=== PATIENT | male | born 1950 | race Caucasian/White ===

== ENCOUNTER 2021-12-01 10:01 | Emergency (ER) | payer MEDICARE, SELFPAY ==
[2021-12-01 10:09] VITALS: BP 143/95; PULSE 97; RESP 18; TEMP 36.6; O2SAT 97; BMI 26.5
--- NOTE | 2021-12-01 10:51 | ED.GENADULT ---
HPI - General Adult General Time Seen by Provider: 10:51 Date Seen: 12/01/21 Chief complaint: Urogenital Problems, Male Stated complaint: Urinary tract infection Time Seen by Provider: 12/01/21 10:46 Source: patient and RN notes reviewed Mode of arrival: ambulatory Limitations: no limitations History of Present Illness HPI narrative: Patient is coming in with complaint of UTI. He has chronic indwelling catheter in states he gets recurrent UTIs. He reports he had called his urologist whom he sees in [place] a few days back and requested some more Cipro. The urologist wanted him to come in and provide a sample which he did do so. He received a call today that he needed to come in and get an injectable antibiotic. Does not have his results. Patient is not feeling any fevers. No nausea or vomiting. When I questioned him as to how he knows he has an infection he states he gets a burning sensation. Reviewed with patient that we are needing this culture result to be able to proceed with giving him antibiotics. I have no idea what to use without seeing the culture result. Related Data Previous Rx's Medication Instructions Recorded linezolid 600 mg tablet 600 mg PO BID #13 tabs 12/01/21 linezolid 600 mg tablet 600 mg PO BID #13 tabs 12/01/21 Allergies Allergy/AdvReac Type Severity Reaction Status Date / Time No Known Drug Allergies Allergy Verified 12/01/21 10:16 Review of Systems Status of ROS: Reports: 6 or more systems reviewed and unremarkable except as noted in History and below PFSH PFSH Social History Smoking Status: Unknown if ever smoked Exam Const: Vital Signs, click to edit/add: Vital Signs - 24 hr 12/01/21 10:09 Temperature 97.9 F Pulse Rate [Right Pulse Oximeter] 97 Respiratory Rate 18 Blood Pressure [Ri ght Upper Arm] 143/95 H Pulse Oximetry 97 Oxygen Delivery Me thod Room Air Documenting provider has reviewed patient's vital signs: yes Common normals: no apparent distress, average body habitus, oriented x3, no limitations, healthy appearing, alert and well nourished General appearance: cooperative and comfortable HENMT: Common normals: normocephalic, head/scalp atraumatic and hearing grossly normal bilaterally Head and scalp: normocephalic and atraumatic Eye: Common normals: PERRL, EOMs intact bilaterally, conjunctivae normal and no scleral icterus Conjunctiva: conjunctiva(e) normal Pupil: PERRL Resp: Common normals: normal respiratory effort, no retractions, no use of accessory muscles and clear to auscultation bilaterally Auscultation: clear to auscultation bilaterally Cardio: Common normals: regular rate, regular rhythm, S1 normal heart sound, S2 normal heart sound, no gallops, no clicks and no murmurs Rate: regular rate Rhythm: regular rhythm Heart sounds: S1 normal and S2 normal GI: Common normals: Normal to inspection, nondistended, normoactive bowel sounds present, soft to palpation, non-tender, no hepatosplenomegaly and no masses Palpation: soft and no hepatosplenomegaly Neuro: Common normals: oriented x3 Sensorium/orientation: alert Course Course Hospital Course: Reviewed with patient that we need the urine results from his urologist. He sees someone in [place] at [facility]. We have contacted that clinic to get the results. Reevaluation(s) Reevaluation #1: Have been working with pharmacy regarding this patient's sensitivities. He has a multi-drug resistant Staphylococcus hominis. Greater than 100k colony-forming units. It is only sensitive to daptomycin, gentamicin and linezolid. His creatinine was normal upon review of his chart on 08/01/2021 at . His pharmacy will not cover the oral linezolid. We are currently working on scene if we could do a prior authorization otherwise he will have to do outpatient gentamicin. Time: 13:01 Vital Signs Vital signs: Initial Vital Signs Temperature 97.9 F 12/01/21 10:09 Temperature Source Temporal Artery Scan 12/01/21 10:09 Pulse Rate 97 12/01/21 10:09 Respiratory Rate 18 12/01/21 10:09 Blood Pressure 143/95 H 12/01/21 10:09 Blood Pressure Mean 111 12/01/21 10:09 Blood Pressure Position Sitting 12/01/21 10:09 Pulse Oximetry 97 12/01/21 10:09 Oxygen Delivery Method 12/01/21 10:09 Vital Signs Temperature 97.9 F 12/01/21 10:09 Pulse Rate 97 12/01/21 10:09 Respiratory Rate 18 12/01/21 10:09 Blood Pressure 143/95 H 12/01/21 10:09 Pulse Oximetry 97 12/01/21 10:09 Oxygen Delivery Method 12/01/21 10:09 Temperature 97.9 F 12/01/21 10:09 Pulse Rate 97 12/01/21 10:09 Respiratory Rate 18 12/01/21 10:09 Blood Pressure 143/95 H 12/01/21 10:09 Pulse Oximetry 97 12/01/21 10:09 Oxygen Delivery Method 12/01/21 10:09 Critical Care Time Critical Care Time Critical Care Time: No Discharge Plan Discharge Clinical Impression: Urinary tract infection Patient Disposition: Home, Self-Care Condition: Stable Instructions: Urinary Tract Infection in Men (ED) Additional Instructions: Take antibiotics as prescribed, next dose due tomorrow morning. Follow up with urologist as needed. Do recommend consideration of referral to Infectious disease specialist to review your highly resistant urinary organisms and plans for further treament. Activity Level: Activity as Tolerated Prescriptions: New linezolid 600 mg tablet 600 mg PO BID Qty: 13 0RF linezolid 600 mg tablet 600 mg PO BID Qty: 13 0RF Follow Up/Referrals: George Mistry MD [Referring] - Stand Alone Forms: [employer] Info Instructions
--- OUTSIDE RECORDS SUMMARY | 2021-12-01 11:19 | XMS_ITS | Encounter Summary ---
:1950 Author Organization [facility] [place] [address] Care Team Providers Name Role Phone No Ref-Primary, Physician Primary Care Provider [phone] Lino Radford DO Unavailable Wilian Castañeda MD Unavailable Reason for Referral (Routine) - Closed Specialty Diagnoses / Procedures Referred By Contact Refer red To Contact Diagnoses Chronic atrial fibrillation (H) Wilian Castañeda MD Procedures Cardioversion [address] [place] [id number] Referral ID Status Reason Start Date Expiration Date Visits Requ ested Visits Authorized [id number] Closed 10/27/2020 10/27/2021 1 1 Reason for Visit Reason Comments FU Cardiac testing echo, ZPatch (Routine) - Closed Specialty Diagnoses / Procedures Referred By Contact Refer red To Contact Diagnoses Chronic atrial fibrillation (H) Wilian Castañeda MD [address] [place] [id number] Referral ID Status Reason Start Date Expiration Date Visits Requ ested Visits Authorized [id number] Closed 09/01/2020 09/01/2021 1 1 Encounter Details Date Type Department Care Team Description 10/27/2020 Office Visit [facility] Wilian Castañeda [facility] Lizzy Mcintosh MD fibrillation (H) [address] [place] [id number] [place] [address] [phone] Social History Tobacco Use Types Packs/Day Years Used Date Former Smoker Cigarettes 2 20 04/02/1971 - 0 04/02/1991 Smokeless Tobacco: Never Used Alcohol Use Standard Drinks/Week Comments Yes 0 (1 standard drink = 0.6 oz pure alcoho l) occ Alcohol Habits Answer Date Recorded How often do you have a drink containing alcohol? Not asked How many drinks containing alcohol do you have on a typical Not asked day when you are drinking? How often do you have six or more drinks on one occasion? No t asked Comment: occ 07/19/2020 Sex Assigned at Date Recorded Male 08/29/2020 12:26 PM CDT COVID-19 Exposure Response Date Recorded In the last month, have you been in contact with No / Unsure 10/27/2020 12:25 PM CDT someone who was confirmed or suspected to have Coronavirus / COVID-19? documented as of this encounter Last Filed Vital Signs Vital Sign Reading Time Taken Comments Blood Pressure 150/96 10/27/2020 12:41 PM recheck CDT Pulse 94 10/27/2020 12:41 PM CDT Temperature - - Respiratory Rate - - Oxygen Saturation - - Inhaled Oxygen Concentration - - Weight 111.7 kg (246 lb 4.8 oz) 10/27/2020 12:38 PM CDT Height 180.3 cm (5' 10.98) 10/27/2020 12:38 PM CDT Body Mass Index 34.37 10/27/2020 12:38 PM CDT documented in this encounter Patient Instructions Patient InstructionsWilian Castañeda MD - 10/27/2020 12:45 PM CDT - Stop Metoprolol and Asprin. - Start Coreg and Eliquis. - Electrical cardioversion. documented in this encounter Progress Notes Wilian Castañeda MD - 10/27/2020 12:45 PM CDT Electrophysiology/ Clinic Note H&P and Plan: REASON FOR VISIT: Electrophysiology evaluation. HISTORY OF PRESENT ILLNESS: Patient is a pleasant 70-year-old gentleman with a history hyperlipidemia and persistent atrial fibrillation, who is here for evaluation. ?? Patient recently moved from [place] to [place]. He was told in the past that he had A. fib, however he denies actually having any physical back in [place]. Here [place], he establish care with PCP and was found to have atrial fibrillation. He was referred here for evaluation. Met with him last month. At that time, he was complaining of fatigue but appears that the symptoms were chronic for him. I recommend a monitor and an echocardiogram, and started him on beta-blockers. He did not tolerate metoprolol well-decrease the dose in half due to fatigue. He continues to do well and denies any other major symptoms such as chest pain, palpitations or shortness of breath. Echocardiogram showed mild LV dysfunction and blood pressure is mildly evaded today. Baseline EKG shows atrial fibrillation with RVR and underlying intraventricular conduction delay/left anterior fascicular block. ?? Previous studies: -ZIO Patch monitor (): Persistent A. fib with average heart rate of 186 bpm. There are a few moments of RVR. -Echocardiogram (09/29/2020): Mild LV dysfunction. EF estimated 45-50%. ?? ASSESSMENT AND PLAN: 1. ??Persistent atrial fibrillation. ?? Echo showed mild to moderate left atrial dilation, which is suggestive of A. fib may be subacute rather than chronic. He seems to be minimally symptomatic with A. fib, however echo shows signs of LV dysfunction. Therefore, I favor at least an attempt of buddhist of normal rhythm. As he is intolerant to metoprolol, will try to switch to a different beta-mulugeta. I recommend the following: -Stop metoprolol and aspirin. -Start Eliquis and Coreg. -Cardioversion a month. -Follow-up in clinic with an JORDY after cardioversion. 2. ??Embolic prevention. ??CHADS-VASc score of 2-3 (age, CHF and hypertension- new diagnosis). Plan as detailed above. Wilian Castañeda MD Physical Exam: Vitals: BP (!) 150/96 (BP Location: Left arm) Pulse 94 Ht 1.803 m (5' 10.98) Wt 111.7 kg (246lb 4.8 oz) BMI 34.37 kg/m?? Constitutional: AAO x3. Pt is in NAD. HEAD: normocephalic. SKIN: Skin normal color, texture and turgor with no lesions or eruptions. Eyes: PERRL, EOMI. ENT: Supple, normal JVP. No lymphadenopathy or thyroid enlargement. Chest: CTAB. Cardiac: RRR, normal S1 and S2. No murmurs rubs or gallop. Abdomen: Normal BS. Soft, non-tender and non-distended. No rebound or guarding. Extremities: Pedious pulses palpable B/L. No LE edema noticed. Neurological: Strength and sensation grossly symmetric and intact throughout. CURRENT MEDICATIONS: Current Outpatient Medications Medication Sig Dispense Refill ??? acetaminophen (TYLENOL) 500 MG tablet Take 500-1,000 mg by mouth every 6 hours as needed for mild pain ??? aspirin (ASA) 81 MG EC tablet Take 1 tablet (81 mg) by mouth daily 30 tablet 3 ??? metoprolol succinate ER (TOPROL-XL) 25 MG 24 hr tablet Take 1 tablet (25 mg) by mouth daily (Patient taking differently: Take 12.5 mg by mouth daily ) 30 tablet 3 ??? ondansetron (ZOFRAN) 4 MG tablet Take 1 tablet (4 mg) by mouth every 8 hours as needed for nausea (Patient not taking: Reported on 09/01/2020) 20 tablet 3 ALLERGIES No Known Allergies PAST MEDICAL HISTORY: Past Medical History: Diagnosis Date ??? Urinary tract infection PAST SURGICAL HISTORY: Past Surgical History: Procedure Laterality Date ??? COLONOSCOPY FAMILY HISTORY: Family History Problem Relation Age of Onset ??? No Known Problems Mother ??? No Known Problems Father ??? Colon Cancer No family hx of SOCIAL HISTORY: Social History Socioeconomic History ??? Marital status: Spouse name: None ??? Number of children: None ??? Years of education: None ??? Highest education level: None Occupational History ??? None Tobacco Use ??? Smoking status: Former Smoker Packs/day: 2.00 Years: 20.00 Pack years: 40.00 Types: Cigarettes Start date: 04/02/1971 Quit date: 04/02/1991 Years since quittin.5 ??? Smokeless tobacco: Never Used Substance and Sexual Activity ??? Alcohol use: Yes Comment: occ ??? Drug use: Yes Types: Marijuana ??? Sexual activity: None Other Topics Concern ??? Parent/sibling w/ CABG, OK or angioplasty before 65F 55M? Not Asked Social History Narrative ??? None Social Determinants of Health Financial Resource Strain: ??? Difficulty of Paying Living Expenses: Food Insecurity: ??? Worried About Running Out of Food in the Last Year: ??? Ran Out of Food in the Last Year: Transportation Needs: ??? Lack of Transportation (Medical): ??? Lack of Transportation (Non-Medical): Physical Activity: ??? Days of Exercise per Week: ??? Minutes of Exercise per Session: Stress: ??? Feeling of Stress : Social Connections: ??? Frequency of Communication with Friends and Family: ??? Frequency of Social Gatherings with Friends and Family: ??? Attends Qu[employer] Services: ??? Active Member of Clubs or Organizations: ??? Attends Club or Organization Meetings: ??? Marital Status: Intimate Partner Violence: ??? Fear of Current or Ex-Partner: ??? Emotionally Abused: ??? Physically Abused: ??? Sexually Abused: Review of Systems: Skin: Negative Eyes: Positive for glasses ENT: Negative Respiratory: Positive for dyspnea on exertion Cardiovascular: Negative Gastroenterology: Negative Genitourinary: Positive for prostate problem Musculoskeletal: Negative Neurologic: Negative Psychiatric: Positive for anxiety Heme/Lymph/Imm: Negative Endocrine: Negative Recent Lab Results: LIPID RESULTS: No results found for: CHOL, HDL, LDL, TRIG, CHOLHDLRATIO LIVER ENZYME RESULTS: Lab Results Component Value Date AST 11 08/09/2020 ALT 22 08/09/2020 CBC RESULTS: Lab Results Component Value Date WBC 10.7 08/09/2020 RBC 5.53 08/09/2020 HGB 16.8 08/09/2020 HCT 50.8 08/09/2020 MCV 92 08/09/2020 MCH 30.4 08/09/2020 MCHC 33.1 08/09/2020 RDW 14.4 08/09/2020 PLT 196 08/09/2020 BMP RESULTS: Lab Results Component Value Date NA 139 08/09/2020 POTASSIUM 4.2 08/09/2020 CHLORIDE 108 08/09/2020 CO2 22 08/09/2020 ANIONGAP 9 08/09/2020 GLC 125 (H) 08/09/2020 BUN 24 08/09/2020 CR 0.87 08/09/2020 GFRESTIMATED 87 08/09/2020 GFRESTBLACK >90 08/09/2020 ISIAH 9.5 08/09/2020 A1C RESULTS: No results found for: A1C INR RESULTS: Lab Results Component Value Date INR 1.10 07/15/2020 ECHOCARDIOGRAM No results found for this or any previous visit (from the past 8760 hour(s)). No orders of the defined types were placed in this encounter. No orders of the defined types were placed in this encounter. There are no discontinued medications. Encounter Diagnosis Name Primary? Chronic atrial fibrillation (H) CC Wilian Castañeda MD [address] [place] [id number] documented in this encounter Plan of Treatment Scheduled Orders Name Type Priority Associated Diagnoses Order S chedule Cardioversion Electrophysiology Routine Chronic atrial Expecte d: 11/27/2020 fibrillation (H) (Approximat e), Expires: 2021 documented as of this encounter Visit Diagnoses Diagnosis Chronic atrial fibrillation (H) Atrial fibrillation documented in this encounter Care Teams Optical Fabricator Relationship Specialty Start Date End Date No Ref-Primary, Physician PCP - General 07/15/20 Lino Radford DO Assigned PCP 08/26/20 [id number] [place], [place] [id number] Wilian Castañeda MD Assigned Heart and Vascular 09/12/20 [address] Provider [address] [place] [id number] documented as of this encounter
--- OUTSIDE RECORDS SUMMARY | 2021-12-01 11:19 | XMS_ITS | Encounter Summary ---
:1950 Author Organization [place] Address On license of [facility] [place] [address] Care Team Providers Name Role Phone No Ref-Primary, Physician Primary Care Provider [phone] Lino Radford DO Unavailable Wilian Turner MD Unavailable Reason for Referral CV Testing (Routine) - Closed Specialty Diagnoses / Procedures Referred By Contact Refer red To Contact Cardiology Diagnoses Chronic atrial fibrillation (H) Wilian Turner, Cv Cardiac Services Procedures Echocardiogram Complete ZZHC TTE W/DOPPLER, COMPLETE ZZHC ECHO COMPLETE W DOPPLER W CONTRAST ZZHC ECHO COMPLETE W DOPPLER W/O CONTRAST ZZHC IV PUSH SINGLE, INITIAL SUBSTANCE ZZHC US GUIDE FOR PERICARDIOCENTESIS [address] ZZHC ECHO MYOCARD BX ZZC INJECTION, PERFLUTREN LIPID MICROSPHERES, PER ML ZZHC STATISTIC IV PUSH SINGLE INITIAL SUBSTANCE RI ECHO MYOCARD BX RI INJECTION, PERFLUTREN LIPID MICROSPHERES, PER ML RI TTE W/DOPPLER, COMPLETE [address] [place] IV PUSH SINGLE, INITIAL S UBSTANCE RI TTE W/DOPPLER, COMPLETE RI TTE W/DOPPLER, COMPLETE HC US GUIDE FOR PERICARDIOCENTESIS HC ECHO MYOCARD BX HC IV PUSH SINGLE, INITIAL SUBSTANCE HC STATISTIC IV PUSH SINGLE INITIAL SUBSTANCE [address] HC ECHO COMPLETE W DOPPLER W CONTRAST HC ECHO COMPLETE W DOPPLER W/O CONTRAST [place] [address] [place] [phone] Referral ID Status Reason Start Date Expiration Date Visits Requ ested Visits Authorized [id number] Closed 09/01/2020 09/01/2021 1 1 Reason for Visit Auth/Cert Specialty Diagnoses / Procedures Referred By Contact Refer red To Contact Cardiology Cv Cardiac Se rvices [address] [facility] [address] [facility] [address] [place] [phone] Phone: Referral ID Status Reason Start Date Expiration Date Visits Requ ested Visits Authorized [id number] 1 1 Encounter Details Date Type Department Care Team Description 09/29/2020 Hospital Encounter [facility] Wilian Turner Ch ronic atrial [facility] MD Tj fibrillation (H) Heart Care [address] [facility] [address] [facility] [address] [place] [address] [address] [place] (Work) [phone] Social History Tobacco Use Types Packs/Day Years Used Date Former Smoker Cigarettes 2 20 04/02/1971 - 0 04/02/1991 Smokeless Tobacco: Never Used Alcohol Use Standard Drinks/Week Comments Yes 0 (1 standard drink = 0.6 oz pure alcoho l) [facility] Alcohol Habits Answer Date Recorded How often [...] been in contact with No / Unsure 09/29/2020 12:28 PM CDT someone who was confirmed or suspected to have Coronavirus / COVID-19? documented as of this encounter Medications at Time of Discharge Medication Sig Dispensed Refills Start Date End Date acetaminophen (TYLENOL) Take 500-1,000 mg 0 500 MG tablet by mouth every 6 hours as needed for mild pain ondansetron (ZOFRAN) 4 MG Take 1 tablet (4 20 tablet 3 07/01 tabletIndications: Nausea mg) by mouth every 8 hours as needed for nausea aspirin (ASA) 81 MG EC Take 1 tablet (81 30 tablet 3 202010/27/2020 tabletIndications: Chronic mg) by mouth daily atrial fibrillation (H) metoprolol succinate ER Take 1 tablet (25 30 tablet 3 09/0110/27/2020 (TOPROL-XL) 25 MG 24 hr mg) by mouth daily tabletIndications: Chronic atrial fibrillation (H) documented as of this encounter Miscellaneous Notes Result Encounter Note - Joseluis Feliciano RN - 09/29/2020 11:59 PM CDT To be reviewed with patient at follow up visit with Dr. Turner on 10/27/2020, awaiting Zio patch results. documented in this encounter Plan of Treatment Not on filedocumented as of this encounter Procedures Procedure Name Priority Date/Time Associated Diagnosis Comme nts ECHO COMPLETE WITH Routine 09/29/2020 1:43 PM Chronic atrial R esults for this CONTRAST CDT fibrillation (H) procedure a re in the results section. documented in this encounter Results ECHO COMPLETE WITH CONTRAST (09/29/2020 1:43 PM CDT) Anatomical Region Laterality Modality Echocardiography Specimen (Source) Anatomical Collection Method Collection Time Re ceived Time Location / / Volume Laterality 09/29/2020 12:50 PM CDT Narrative 09/29/2020 2:20 PM CDT [id number]^YUE^WILIAN^TJ [facility] [address] [facility] [address] [place] [address] Name: MARLON OWENS : 1950 Study Date: 09/29/2020 12:50 PM Age: 70 yrs Gender: Male Patient Location: [facility] Reason For Study: Chronic atrial fibrill ation (H) Ordering Physician: WILIAN TURNER Referring Physician: WILIAN TURNER A Performed By: Silvia Rubio BSA: 2.3 m2 Height: 71 in Weight: 243 lb HR: 112 BP: 120/82 mmHg Procedure Complete Echo Adult. Breanna ([facility] #[id number]) given intravenously. Interpretation Summary The left ventricle is mildly dilated. Th e visual ejection fraction is 45-50%. Septal motion is consistent with conduct ion abnormality. Irregular rhythm, with wide QRS. The right ventricle is normal in size an d function. The left atrium is mild to moderately di lated. The inferior vena cava was normal in siz e with preserved respiratory variability. Mild aortic root dilatation at 3.9 cms. No prior studies for comparison. Technic ally difficult study. Contrast used with some improvement. Left Ventricle The left ventricle is mildly dilated. Th ere is normal left ventricular wall thickness. There is concentric remodelin g present. Diastolic Doppler findings (E/E' ratio and/or other parameters) sug gest left ventricular filling pressures are normal. The visual ejectio n fraction is 45-50%. Septal motion is consistent with conduction abnormality. Right Ventricle The right ventricle is normal in size an d function. Atria The left atrium is mild to moderately di lated. The right atrium is mildly dilated. Mitral Valve The mitral valve is normal in structure and function. There is trace mitral regurgitation. There is no mitral valve stenosis. Tricuspid Valve The tricuspid valve is normal in structu re and function. Right ventricle systolic pressure estimate normal. The r ight ventricular systolic pressure is approximated at 17.7 mmHg plus the right atrial pressure. Aortic Valve Normal tricuspid aortic valve. No aortic regurgitation is present. No hemodynamically significant valvular aor tic stenosis. Pulmonic Valve The pulmonic valve is not well visualize d. There is no pulmonic valvular regurgitation. Vessels Mild aortic root dilatation. The ascendi ng aorta is Borderline dilated. The inferior vena cava was normal in size wi th preserved respiratory variability. Pericardium There is no pericardial effusion. MMode/2D Measurements & Calculations IVSd: 0.97 cm LVIDd: 4.1 cm LVIDs: 3.4 cm LVPWd: 0.99 cm FS: 16.4 % LV mass(C)d: 127.3 grams LV mass(C)dI: 55.6 grams/m2 Ao root diam: 3.9 cm LA dimension: 5.5 cm asc Aorta Diam: 3.8 cm LA/Ao: 1.4 LA Volume (BP): 97.7 ml LA Volume Index (BP): 42.7 ml/m2 RWT: 0.48 Doppler Measurements & Calculations MV E max ingrid: 60.2 cm/sec MV dec time: 0.16 sec TR max ingrid: 210.2 cm/sec TR max P.7 mmHg E/E' av.0 Lateral E/e': 3.7 Medial E/e': 6.3 Report approved by: Scar Inman 0 09/29/2020 02:20 PM Procedure Note Odessa Aguila MD - 09/29/2020 [id number]^YUE^WILIAN^TJ [facility] [address] [facility] [address] [place] [address] Name: MARLON OWENS : 1950 Study Date: 09/29/2020 12:50 PM Age: 70 yrs Gender: Male Patient Location: [facility] Reason For Study: Chronic atrial fibrill ation (H) Ordering Physician: WILIAN TURNER Referring Physician: WILIAN TURNER Performed By: Silvia Rubio BSA: 2.3 m2 Height: 71 in Weight: 243 lb HR: 112 BP: 120/82 mmHg Procedure Complete Echo Adult. Optison ([facility] #[id number]) given intravenously. Interpretation Summary The left ventricle is mildly dilated. Th e visual ejection fraction is 45-50%. Septal motion is consistent with conduct ion abnormality. Irregular rhythm, with wide QRS. The right ventricle is normal in size an d function. The left atrium is mild to moderately di lated. The inferior vena cava was normal in siz e with preserved respiratory variability. Mild aortic root dilatation at 3.9 cms. No prior studies for comparison. Technic ally difficult study. Contrast used with some improvement. Left Ventricle The left ventricle is mildly dilated. Th ere is normal left ventricular wall thickness. There is concentric remodelin g present. Diastolic Doppler findings (E/E' ratio and/or other parameters) sug gest left ventricular filling pressures are normal. The visual ejectio n fraction is 45-50%. Septal motion is consistent with conduction abnormality. Right Ventricle The right ventricle is normal in size an d function. Atria The left atrium is mild to moderately di lated. The right atrium is mildly dilated. Mitral Valve The mitral valve is normal in structure and function. There is trace mitral regurgitation. There is no mitral valve stenosis. Tricuspid Valve The tricuspid valve is normal in structu re and function. Right ventricle systolic pressure estimate normal. The r ight ventricular systolic pressure is approximated at 17.7 mmHg plus the right atrial pressure. Aortic Valve Normal tricuspid aortic valve. No aortic regurgitation is present. No hemodynamically significant valvular aor tic stenosis. Pulmonic Valve The pulmonic valve is not well visualize d. There is no pulmonic valvular regurgitation. Vessels Mild aortic root dilatation. The ascendi ng aorta is Borderline dilated. The inferior vena cava was normal in size wi th preserved respiratory variability. Pericardium There is no pericardial effusion. MMode/2D Measurements & Calculations IVSd: 0.97 cm LVIDd: 4.1 cm LVIDs: 3.4 cm LVPWd: 0.99 cm FS: 16.4 % LV mass(C)d: 127.3 grams LV mass(C)dI: 55.6 grams/m2 Ao root diam: 3.9 cm LA dimension: 5.5 cm asc Aorta Diam: 3.8 cm LA/Ao: 1.4 LA Volume (BP): 97.7 ml LA Volume Index (BP): 42.7 ml/m2 RWT: 0.48 Doppler Measurements & Calculations MV E max ingrid: 60.2 cm/sec MV dec time: 0.16 sec TR max ingrid: 210.2 cm/sec TR max P.7 mmHg E/E' av.0 Lateral E/e': 3.7 Medial E/e': 6.3 Report approved by: Odessa Aguila MDon 0 09/29/2020 02:20 PM Wilian Turner MD CV ECHO ORDERABLES documented in this encounter Visit Diagnoses Diagnosis Chronic atrial fibrillation (H) Atrial fibrillation documented in this encounter Administered Medications Inactive Administered Medications - up to 3 most recent administrations Medication Order MAR Action Action Date Dose Rate Site perflutren diluted 1mL to 2mL with Given 09/29/2020 1:43 PM CDT 9 mLs saline (OPTISON) diluted injection 9 mL 9 mL, Intravenous, ONCE, On Sun09/29/20 at 1400, For 1 dose, [facility]- [id number] sodium chloride (PF) 0.9% PF flush 10 mL Given 09/29/2020 1:44 PM CDT 10 mLs 10 mL, Intravenous, ONCE, On Sun09/29/20 at 1400, For 1 dose documented in this encounter Care Teams Lead Cook Relationship Specialty Start Date End Date No Ref-Primary, Physician PCP - General 07/15/20 Lino Radford DO Assigned PCP 08/26/20 [address] [address] [address] Wilian Turner MD Assigned Heart and Vascular 09/12/20 [address] [facility] Provider [address] [place] [address] documented as of this encounter
--- OUTSIDE RECORDS SUMMARY | 2021-12-01 11:19 | XMS_ITS | Encounter Summary ---
:1950 Author Organization [place] Address [address] [place] [address] Care Team Providers Name Role Phone No Ref-Primary, Physician Primary Care Provider [phone] Savanah Gaming PA-C Unavailable [phone] Encounter Details Date Type Department Care Team Description 08/23/2020 Travel Social History Tobacco Use Types Packs/Day Years [...] been in contact with No / Unsure 08/23/2020 1:17 PM CDT someone who was confirmed or suspected to have Coronavirus / COVID-19? documented as of this encounter Plan of Treatment Not on filedocumented as of this encounter Visit Diagnoses Not on filedocumented in this encounter Care Teams Valet Runner Relationship Specialty Start Date End Date No Ref-Primary, Physician PCP - General 07/15/20 Savanah Gaming PA-C Assigned PCP 06/24/20 08/25/20 [address] [place] [address] documented as of this encounter
--- OUTSIDE RECORDS SUMMARY | 2021-12-01 11:19 | XMS_ITS | Clinical Summary ---
:1950 Author Organization [place] Address [address] [place] [address] Care Team Providers Name Role Phone No Ref-Primary, Physician Primary Care Provider [phone] Lino Radford DO Unavailable Wilian Castañeda MD Unavailable Justine Laurent PA-C Unavailable [phone] Allergies No known active allergies Medications Medication Sig Dispensed Refills Start Date End Date Status ondansetron (ZOFRAN) 4 Take 1 tablet (4 20 tablet 3 07/19/2020 Active MG tabletIndications: mg) by mouth Nausea every 8 hours as needed for nausea acetaminophen (TYLENOL) Take 500-1,000 0 Active 500 MG tablet mg by mouth every 6 hours as needed for mild pain apixaban ANTICOAGULANT Take 1 tablet (5 60 tablet 3 10/27/2020 Active (ELIQUIS ANTICOAGULANT) mg) by mouth 2 5 MG tabletIndications: times daily Chronic atrial fibrillation (H) carvedilol (COREG) 3.125 Take 1 tablet 60 tablet 3 10/27/2020 Active MG tabletIndications: (3.125 mg) by Chronic atrial mouth 2 times fibrillation (H) daily (with meals) Active Problems Problem Noted Date Diverticulosis of large intestine without hemorrhage 0 07/19/2020 Bladder diverticulitis 07/19/2020 Morbid obesity 07/19/2020 History of colonic polyps 07/19/2020 Rectal bleeding 07/19/2020 Urinary tract infection Immunizations Name Administration Dates Next Due COVID-19,PF,Moderna 03/18/2021 TD (ADULT, 7+) 08/23/2020 Family History Medical History Relation Comments No Known Problems Father No Known Problems Mother Colon Cancer No family hx of Relation Status Comments Father Mother Social History Tobacco Use Types Packs/Day Years [...] Date Recorded Male 08/29/2020 12:26 PM CDT Last Filed Vital Signs Vital Sign Reading Time Taken Comments Blood Pressure 168/108 11/04/2020 4:00 PM CDT Pulse 103 11/04/2020 4:00 PM CDT Temperature 36.9 ??C (98.4 ??F) 11/04/2020 3:29 PM CDT Respiratory Rate 16 11/04/2020 3:29 PM CDT Oxygen Saturation 96% 11/04/2020 4:30 PM CDT Inhaled Oxygen Concentration - - Weight 111.6 kg (246 lb) 12/23/2020 2:06 PM CDT Height 180.3 cm (5' 10.98) 12/23/2020 2:06 PM CDT Body Mass Index 34.33 12/23/2020 2:06 PM CDT Plan of Treatment Health Maintenance Due Date Last Done Comments ADVANCE CARE PLANNING 1950 [address] COLONOGRAPHY 1950 FIT-DNA (Cologuard) 1950 FLEX SIG 1950 Pneumococcal Vaccine: 65+ 1956 Years (1 - PCV) HEPATITIS C SCREENING 1968 LIPID 1985 ZOSTER IMMUNIZATION (1 of 2) 2000 MEDICARE ANNUAL WELLNESS 2015 VISIT PHQ-2 (once per calendar 04/02/2021 08/23/2020 year) COVID-19 Vaccine (2 - Moderna 04/15/2021 03/18/2021 series) FIT 07/15/2021 07/15/2020 ANNUAL REVIEW OF HM ORDERS 08/23/2021 08/23/2020 FALL RISK ASSESSMENT 08/23/2021 08/23/2020 INFLUENZA VACCINE (#1) 2021 COLONOSCOPY 08/18/2030 08/18/2020, 04/02/2017 COLORECTAL CANCER SCREENING 08/18/2030 DTAP/TDAP/TD IMMUNIZATION (2 08/23/2030 08/23/2020 - Td or Tdap) AORTIC ANEURYSM SCREENING Completed 07/15/2020 (SYSTEM ASSIGNED) HEPATITIS B IMMUNIZATION Aged Out No long er eligible based on patient's age to complete this to pic IPV IMMUNIZATION Aged Out No longer eligi ble based on patient's age to complete this to pic MENINGITIS IMMUNIZATION Aged Out No longe r eligible based on patient's age to complete this to pic Insurance Payer Benefit Plan / Subscriber ID Effective Dates Phone Addre ss Type Group BCBS BCBS MEDICARE [id number] 2020-Edd [phone] [address] [address] Medicare ADVANTAGE t 0 [place] [id number] Care Teams Air Compressor Mechanic Relationship Specialty Start Date End Date No Ref-Primary, Physician PCP - General 07/15/20 Lino Radford DO Assigned PCP 08/26/20 [address] [place], [place] [id number] Wilian Castañeda MD Assigned Heart and Vascular 09/12/20 [address] Provider [address] [place] [id number] Justine Laurent, Assigned Surgical Provider 01/02/21 [place] [address] [place] [address]
--- OUTSIDE RECORDS SUMMARY | 2021-12-01 11:19 | XMS_ITS | Encounter Summary ---
:1950 Author Organization [place] Address [address] [place] [address] Care Team Providers Name Role Phone No Ref-Primary, Physician Primary Care Provider [phone] Lino Radford DO Unavailable Reason for Visit Reason Onset Date Comments Appointment 08/31/2020 Dr Castañeda 09/01 Encounter Details Date Type Department Care Team Description 08/31/2020 Telephone [facility] Teresa Mesa A ppointment (Dr Castañeda [facility] Lizzy RN 09/01) [address] [facility] [address] [place] [id number] Social History Tobacco Use Types Packs/Day Years [...] / COVID-19? documented as of this encounter Miscellaneous Notes Telephone Encounter - Jerri Rincon RN - 09/01/2020 8:18 AM CDT 09/01/20 Spoke w pt who stated there are no records from [place] as he did not seek medical care regarding his heart arrhythmia there. CARLOSerroRN 820 am Telephone Encounter - Teresa Mesa RN - 08/31/2020 1:06 PM CDT LM for pt to call back to see if he has any records in [place] that may be wanted for OV with Dr Castañeda. JNelsonRN documented in this encounter Plan of Treatment Not on filedocumented as of this encounter Visit Diagnoses Not on filedocumented in this encounter Care Teams Licensed Practical Nurse Instructor Relationship Specialty Start Date End Date No Ref-Primary, Physician PCP - General 07/15/20 Lino Radford DO Assigned PCP 08/26/20 [address] [place] [address] documented as of this encounter
--- OUTSIDE RECORDS SUMMARY | 2021-12-01 11:19 | XMS_ITS | Encounter Summary ---
:1950 Author Organization [place] Address [facility] [place] [address] Care Team Providers Name Role Phone No Ref-Primary, Physician Primary Care Provider [phone] Lino Radford DO Unavailable Wilian Castañeda MD Unavailable Reason for Referral CV Testing (Routine) - Closed Specialty Diagnoses / Procedures Referred By Contact Refer red To Contact Cardiology Diagnoses Chronic atrial fibrillation (H) Wilian Castañeda Sh Cv Cardiac Services Procedures Leadless sports writer 3 to 7 Days ZZHC EXT ECG > 48HR TO 21 DAY RCRD W/CONECT INTL RCRD ZZC EXT ECG > 48HR TO 21 DAY REVIEW AND INTERPRETATN MA EXT ECG > 48HR TO 21 DAY RCRD W/CONECT INTL RCRD MD [address] [place] EXT ECG > 48HR TO 21 DAY REVIEW AND INTERPRETATN HC EXT ECG > 48HR TO 21 DAY RCRD W/CONECT INTL RCRD [address] [place] [address] [place] [phone] Referral ID Status Reason Start Date Expiration Date Visits Requ ested Visits Authorized [id number] Closed 09/01/2020 09/01/2021 1 1 Reason for Visit Auth/Cert Specialty Diagnoses / Procedures Referred By Contact Refer red To Contact Cardiology Cv Cardiac Se rvices [address] [place] [phone] Phone: Referral ID Status Reason Start Date Expiration Date Visits Requ ested Visits Authorized [id number] 1 1 Encounter Details Date Type Department Care Team Description 09/29/2020 [facility] MD Arnaldo fibrillation (H) [facility] [address] [facility] [address] [facility] [address] [facility] [place] [address] [address] [place] (Work) [phone] Social History Tobacco Use Types [...] fibrillation (H) documented as of this encounter Plan of Treatment Not on filedocumented as of this encounter Procedures Procedure Name Priority Date/Time Associated Diagnosis Comme nts LEADLESS NIP WRAPPER Routine 09/29/2020 1:51 Chronic atrial Re sults for this APPLICATION AND PM CDT fibrillation (H) procedur e are in INTERPRETATION 3 TO 7 the re sults DAY section. documented in this encounter Results LEADLESS NIP WRAPPER APPLICATION AND INTERPRETATION 3 TO 7 DAY (09/29/2020 1:51 PM CDT) Anatomical Region Laterality Modality Other Specimen (Source) Anatomical Location Collection Method / Collectio n Time Received Time / Laterality Volume Narrative This result has an attachment that is no t available. Wilian Castañeda MD CV CARDIAC SERVICES ORDERABL ES documented in this encounter Visit Diagnoses Diagnosis Chronic atrial fibrillation (H) Atrial fibrillation documented in this encounter Care Teams B2B Outside Sales Representative Relationship Specialty Start Date End Date No Ref-Primary, Physician PCP - General 07/15/20 Lino Radford DO Assigned PCP 08/26/20 [address] [place], [place] [phone] Wilian Castañeda MD Assigned Heart and Vascular 09/12/20 [address] [facility] Provider [address] [place] [address] documented as of this encounter
--- OUTSIDE RECORDS SUMMARY | 2021-12-01 11:19 | XMS_ITS | Encounter Summary ---
:1950 Author Organization [place] Address [facility] [place] [address] Care Team Providers Name Role Phone No Ref-Primary, Physician Primary Care Provider [phone] Lino Radford DO Unavailable Wilian Castañeda MD Unavailable Reason for Visit Reason Comments Frequent UTI's Recs were faxed to [facility] Encounter Details Date Type Department Care Team Description 12/23/2020 Virtual Visit [facility] Justine Laurent y tract [facility] [place] Cervantes infection with [place] [address] hematuria, site [address] [facility] [address] ([place] [address] Dx) [address] [place], [place] (Work) [address] Social History Tobacco Use Types Packs/Day Years [...] Date Recorded Male 08/29/2020 12:26 PM CDT documented as of this encounter Last Filed Vital Signs Vital Sign Reading Time Taken Comments Blood Pressure - - Pulse - - Temperature - - Respiratory Rate - - Oxygen Saturation - - Inhaled Oxygen Concentration - - Weight 111.6 kg (246 lb) 12/23/2020 2:06 PM CDT Height 180.3 cm (5' 10.98) 12/23/2020 2:06 PM CDT Body Mass Index 34.33 12/23/2020 2:06 PM CDT documented in this encounter Progress Notes Justine Laurent PA-C - 12/23/2020 2:30 PM CDT Patient unable to be reached. No charge. documented in this encounter Nursing Notes Diya Sanders LPN - 12/23/2020 2:30 PM CDT Chief Complaint Patient presents with ??? Frequent UTI's Recs were faxed to [place] Diya Sanders LPN documented in this encounter Plan of Treatment Not on filedocumented as of this encounter Visit Diagnoses Diagnosis Urinary tract infection with hematuria, site unspecified - Primary documented in this encounter Care Teams Quality Control Engineer Relationship Specialty Start Date End Date No Ref-Primary, Physician PCP - General 07/15/20 Lino Radford DO Assigned PCP 08/26/20 [address] [place] [address] Wilian Castañeda MD Assigned Heart and Vascular 09/12/20 [address] [place] Provider [address] [place] [address] documented as of this encounter
--- OUTSIDE RECORDS SUMMARY | 2021-12-01 11:19 | XMS_ITS | Encounter Summary ---
:1950 Author Organization [place] Address [address] [place] [address] Care Team Providers Name Role Phone No Ref-Primary, Physician Primary Care Provider [phone] Lino Radford DO Unavailable Wilian Castañeda MD Unavailable Reason for Visit Reason Onset Date Comments Clinic Care Coordination - Follow-up 10/28/2020 Encounter Details Date Type Department Care Team Description 10/28/2020 Telephone [facility] Jerri Rincon RN Clinic Care Coordination Clinic [place] - Follow-up [address] [facility] [address] [place] [phone] Social History Tobacco Use Types Packs/Day Years [...] been in contact with No / Unsure 11/04/2020 3:28 PM CDT someone who was confirmed or suspected to have Coronavirus / COVID-19? documented as of this encounter Miscellaneous Notes Telephone Encounter - Teresa Mesa RN - 11/08/2020 3:00 PM CDT See Pat's encounter on 11/08. JNelsonRN Telephone Encounter - Jerri Rincon RN - 11/04/2020 12:20 PM CDT 11/04/20 Pt called with question regarding upcoming DCCV. He then proceeded to say he is still having blood in his urine 23/10. Pt stated he never went to last Sunday as planned at last discussionon 10/29. He complained that when he goes to urgent care they always want to do and EKG and blood draw as well. Pt complained he is a terribly hard person to get blood from and so he never went. Explained that he has a hx of UTIs and rectal bleeding. He needs to have a UTI ruled out as he was recently started on a blood thinner. If UTI is negative there could be other bleeding problems associated with Eliquis use. Recommended pt got to [facility] for urine test ( pt does not have PCP) today. Will call and follow up w pt on Wednesday 11/08 Pt voiced understanding and agreement with plan. CARLOSerroRN 1232 pm Telephone Encounter - Jerri Rincon RN - 10/29/2020 3:16 PM CDT 10/29/20 Called pt in follow up.He reported he did note some bright red blood in his urine x 1 last evening. This am when he woke up his urine was completely clear. He has been drinking only water today( no juice or alcohol) . He has gone a few times and urine remains clear. He last urinated about 1 pm and it had some slight darkening. Pt also stated he has been taking Eliquis and Coreg as prescribed. He took his am dose at breakfast and second dose of both at lunch. Instructed him meds should be taken BID meaning approx 12 hours apart. Pt will start this tomorrow. He stated he also plans to go to tomorrow to be checked for UTI. Pt will call in follow up on Wednesday 11/01. KHerroRN 320 pm Telephone Encounter - Jerri Rincon RN - 10/28/2020 2:09 PM CDT 10/28/20 Spoke w pt in follow up. He states he has drank approx 4-8oz classes of water since we spoke. He states his urine color is slowly returning to normal but is still a bit brown. He denies pain orother sx. He states he took his first dose of Eliquis last night and another dose this am. Encouraged him to continue all meds as prescribed and to continue to push fluids. If urine is not clear by am, encouraged pt to seek care in UC ( pt has no PCP) for possible UTI sx. Pt has recent hx ofUTIs as well as rectal bleeding Will follow up w pt tomorrow. Pt voiced understanding and agreement with plan. CARLOSerroRN 212 pm Telephone Encounter - Jerri Rincon RN - 10/28/2020 10:04 AM CDT 10/28/20 Pt called concerned about color of his urine this am. He states it is dark, almost brown colored. He denies burning or urgency but he does have a tendency for UTIs. He states he can usually tell when he has one and does not feel he has one today. Pt states he drank a beer last evening but no water. This am he has had only cranberry juice and no water. Pt is concerned as he just stated 1st dose of Eliquis last wally and this am. Encouraged pt to push fluids. Will try to drink 2-3 8 oz glasses of H20 in the next few hours. Plan made to call pt back at 2 pm to re-assess. Pt voiced understanding and agreement with plan. KHerroRN 1001 am documented in this encounter Plan of Treatment Not on filedocumented as of this encounter Visit Diagnoses Not on filedocumented in this encounter Care Teams Handkerchief Sample Clerk Relationship Specialty Start Date End Date No Ref-Primary, Physician PCP - General 07/15/20 Lino Radford DO Assigned PCP 08/26/20 [address] [place] [address] Wilian Castañeda MD Assigned Heart and Vascular 09/12/20 [address] [facility] Provider [address] [place], [place] [address] documented as of this encounter
--- OUTSIDE RECORDS SUMMARY | 2021-12-01 11:19 | XMS_ITS | Encounter Summary ---
:1950 Author Organization [facility] Address [address] [place] [address] Care Team Providers Name Role Phone No Ref-Primary, Physician Primary Care Provider [phone] Lino Radford DO Unavailable Wilian Castañeda MD Unavailable Reason for Visit Reason Onset Date Comments Orders 10/27/2020 Encounter Details Date Type Department Care Team Description 10/27/2020 [facility] Rufus Fisher RN Orders [place] [address] [facility] [address] [place] [address] Social History Tobacco Use Types Packs/Day Years [...] as of this encounter Plan of Treatment Scheduled Orders Name Type Priority Associated Diagnoses Order S chedule Asymptomatic COVID-19 Microbiology Routine Chronic atrial Expe cted: Virus (Coronavirus) by fibrillation (H) 0 10/27/2020 PCR (Approximate), Expires: 11/27/2020 documented as of this encounter Visit Diagnoses Diagnosis Chronic atrial fibrillation (H) - Primar y Atrial fibrillation documented in this encounter Care Teams Chimney Mechanic Relationship Specialty Start Date End Date No Ref-Primary, Physician PCP - General 07/15/20 Lino Radford DO Assigned PCP 08/26/20 [address] [place] [address] Wilian Castañeda MD Assigned Heart and Vascular 09/12/20 [address] [facility] Provider [address] [place] [address] documented as of this encounter
--- OUTSIDE RECORDS SUMMARY | 2021-12-01 11:19 | XMS_ITS | Encounter Summary ---
:1950 Author Organization [place] Address [facility] [place] [address] Care Team Providers Name Role Phone No Ref-Primary, Physician Primary Care Provider [phone] Lino Radford DO Unavailable Reason for Referral (Routine) - Closed Specialty Diagnoses / Procedures Referred By Contact Refer red To Contact Diagnoses Chronic atrial fibrillation (H) Wilian Turner MD [address] [place] [address] Referral ID Status Reason Start Date Expiration Date Visits Requ ested Visits Authorized [id number] Closed 09/01/2020 09/01/2021 1 1 V Testing (Routine) - Closed Specialty Diagnoses / Procedures Referred By Contact Refer red To Contact Cardiology Diagnoses Chronic atrial fibrillation (H) Wilian Turner, C[facility] Cardiac Services Procedures Leadless drawer upfitter 3 to 7 Days ZZHC EXT ECG > 48HR TO 21 DAY RCRD W/CONECT INTL RCRD ZZC EXT ECG > 48HR TO 21 DAY REVIEW AND INTERPRETATN WV EXT ECG > 48HR TO 21 DAY RCRD W/CONECT INTL CRUZ [place] [address] WV EXT ECG > 48HR TO 21 DAY REVIEW AND INTERPRETATN HC EXT ECG > 48HR TO 21 DAY RCRD W/CONECT INTL RCRD [address] [place] [address] [place] [address] Referral ID Status Reason Start Date Expiration Date Visits Requ ested Visits Authorized [id number] Closed 09/01/2020 09/01/2021 1 1 V Testing (Routine) - Closed Specialty Diagnoses / Procedures Referred By Contact Refer red To Contact Cardiology Diagnoses Chronic atrial fibrillation (H) Wilian Turner, Cv Cardiac Services Procedures Echocardiogram Complete ZZHC TTE W/DOPPLER, COMPLETE ZZHC ECHO COMPLETE W DOPPLER W CONTRAST ZZHC ECHO COMPLETE W DOPPLER W/O CONTRAST ZZHC IV PUSH SINGLE, INITIAL SUBSTANCE ZZHC US GUIDE FOR PERICARDIOCENTESIS [address] ZZHC ECHO MYOCARD BX ZZC INJECTION, PERFLUTREN LIPID MICROSPHERES, PER ML ZZHC STATISTIC IV PUSH SINGLE INITIAL SUBSTANCE WV ECHO MYOCARD BX WV INJECTION, PERFLUTREN LIPID MICROSPHERES, PER ML WV TTE W/DOPPLER, COMPLETE [address] [place] IV PUSH SINGLE, INITIAL S UBSTANCE WV TTE W/DOPPLER, COMPLETE WV TTE W/DOPPLER, COMPLETE HC US GUIDE FOR PERICARDIOCENTESIS HC ECHO MYOCARD BX HC IV PUSH SINGLE, INITIAL SUBSTANCE HC STATISTIC IV PUSH SINGLE INITIAL SUBSTANCE [address] HC ECHO COMPLETE W DOPPLER W CONTRAST HC ECHO COMPLETE W DOPPLER W/O CONTRAST [place] [address] [place] [address] Referral ID Status Reason Start Date Expiration Date Visits Requ ested Visits Authorized [id number] Closed 09/01/2020 09/01/2021 1 1 Reason for Visit Reason Comments New Patient A-fib CV Cardio consult (Routine) - Closed Specialty Diagnoses / Procedures Referred By Contact Refer red To Contact Cardiovascular Disease Diagnoses Chronic atrial fibrillation (H) Lino Radford DO [facility] [address] [address] [place] [address] [address] [place] [address] Phone: Fax: Referral ID Status Reason Start Date Expiration Date Visits Requ ested Visits Authorized [id number] Closed 08/23/2020 08/23/2021 1 1 Encounter Details Date Type Department Care Team Description 09/01/2020 Office Visit [facility] [place] [address] [place] [address] Chronic atrial Heart Clinic Wilian Patel MD [address] [facility] [address] [place] [id number] fibrillation (H) [address] [facility] [address] [place] [address] Social History Tobacco Use Types Packs/Day Years Used Date Former Smoker Cigarettes 2 20 04/02/1971 - 0 04/02/1991 Smokeless Tobacco: Never Used Alcohol Use Standard Drinks/Week Comments Yes 0 (1 standard drink = 0.6 oz pure alcoho l) [facility] Alcohol Habits Answer Date Recorded How often [...] been in contact with No / Unsure 09/01/2020 12:31 PM CDT someone who was confirmed or suspected to have Coronavirus / COVID-19? documented as of this encounter Last Filed Vital Signs Vital Sign Reading Time Taken Comments Blood Pressure 111/80 09/01/2020 12:38 PM CDT Pulse 72 09/01/2020 12:38 PM CDT Temperature - - Respiratory Rate - - Oxygen Saturation 96% 09/01/2020 12:38 PM CDT Inhaled Oxygen Concentration - - Weight 110.3 kg (243 lb 1.6 oz) 09/01/2020 12:38 PM CDT Height 180.3 cm (5' 11) 09/01/2020 12:38 PM CDT Body Mass Index 33.91 09/01/2020 12:38 PM CDT documented in this encounter Progress Notes Wilian Turner MD - 09/01/2020 12:45 PM CDT Electrophysiology/ Clinic Note H&P and Plan: REASON FOR VISIT: Electrophysiology evaluation. HISTORY OF PRESENT ILLNESS: Patient is a pleasant 70-year-old gentleman with a history hyperlipidemia is here for evaluation of atrial fibrillation. Patient recently moved from [place] to [place]. He was told in the past that he had A. fib, however he denies actually having any physical back in [place]. Here, he was evaluated by PCP and an EKG confirmed atrial fibrillation. He was referred here for evaluation. Today, he informs that he feels fatigued. He believes he is has had this fatigue for years now. He just does not think he can keep up with his routine activities. He denies any sensation of palpitations. He denies any other symptoms of chest pain, lightheadedness, near-syncope or syncope. EKG shows atrial fibrillation with RVR and underlying intraventricular conduction delay/left anterior fascicular block. ASSESSMENT AND PLAN: 1. Persistent atrial fibrillation. He seems to have chronic atrial fibrillation. However we do not have much information about his medical history. I recommend the following: -Start metoprolol XL 25 mg daily. -Zio patch monitor for a week. -Echocardiogram. -Follow-up with me in a month. 2. Embolic prevention. CHADS-VASc score of 1. We will start a baby aspirin for now. Wilian Turner MD Physical Exam: Vitals: BP 111/80 Pulse 72 Ht 1.803 m (5' 11) Wt 110.3 kg (243 lb 1.6 oz) SpO2 96% BMI 33.91 kg/m?? Constitutional: AAO x3. Pt is in NAD. HEAD: normocephalic. SKIN: Skin normal color, texture and turgor with no lesions or eruptions. Eyes: PERRL, EOMI. ENT: Supple, normal JVP. No lymphadenopathy or thyroid enlargement. Chest: CTAB. Cardiac: IIR, variable sound of S1 and Normal S2. No murmurs rubs or gallop. Abdomen: [...] hours as needed for mild pain ??? ondansetron (ZOFRAN) 4 MG tablet Take [...] History Problem Relation Age of Onset ??? Colon Cancer No family hx of SOCIAL HISTORY: Social History Socioeconomic History ??? Marital status: Spouse name: None ??? Number of children: None ??? Years of education: None ??? Highest education level: None Occupational History ??? None Social Needs ??? Financial resource strain: None ??? Food insecurity Worry: None Inability: None ??? Transportation needs Medical: None Non-medical: None Tobacco Use ??? Smoking status: Former Smoker Packs/day: 2.00 Years: 20.00 Pack years: 40.00 Types: Cigarettes Start date: 04/02/1971 Quit date: 04/02/1991 Years since quittin.4 ??? Smokeless tobacco: Never Used Substance and Sexual Activity ??? Alcohol use: Yes Comment: occ ??? Drug use: Yes Types: Marijuana ??? Sexual activity: None Lifestyle ??? Physical activity Days per week: None Minutes per session: None ??? Stress: None Relationships ??? Social connections Talks on phone: None Gets together: None Attends catholic service: None Active member of club or organization: None Attends meetings of clubs or organizations: None Relationship status: None ??? Intimate partner violence Fear of current or ex partner: None Emotionally abused: None Physically abused: None Forced sexual activity: None Other Topics Concern ??? Parent/sibling w/ CABG, IN or angioplasty before 65F 55M? Not Asked Social History Narrative ??? None Review of Systems: Skin: Negative itching;rash Eyes: Positive for glasses ENT: Negative Respiratory: Positive for dyspnea on exertion Cardiovascular: Negative for;chest pain;palpitations;fatigue;dizziness;edema lightheadedness;Positive for Gastroenterology: Negative for heartburn;reflux Genitourinary: Positive for urinary tract infection;prostate problem Musculoskeletal: Negative for arthritis;back pain;joint pain Neurologic: Negative for migraine headaches;headaches Psychiatric: Positive for anxiety Heme/Lymph/Imm: Negative allergies;hay fever Endocrine: Negative for thyroid disorder;diabetes Recent Lab Results: LIPID RESULTS: No results [...] previous visit (from the past 8760 hour(s)). Orders Placed This Encounter Procedures ??? EKG 12-lead complete w/read - Clinics (performed today) Orders Placed This Encounter Medications ??? acetaminophen (TYLENOL) 500 MG tablet Sig: Take 500-1,000 mg by mouth every 6 hours as needed for mild pain There are no discontinued medications. Encounter Diagnosis Name Primary? Chronic atrial fibrillation (H) [place] [address] [place] [address] documented in this encounter Plan of Treatment Scheduled Referrals Name Type Priority Associated Diagnoses Order S chedule Follow-Up with Referral Routine Chronic atrial Expected: [place] Cutter fibrillation (H) 05/2020 (Approximate), Expires: 09/01/2021 documented as of this encounter Procedures Procedure Name Priority Date/Time Associated Diagnosis Comme nts EKG 12-LEAD Routine 09/02/2020 4:09 PM Chronic atrial Results for this COMPLETE W/READ - CDT fibrillation (H) proced ure are in CLINICS the results section. documented in this encounter Results LEADLESS CADDY PACKER APPLICATION AND INTERPRETATION 3 TO 7 DAY (09/29/2020 1:51 PM CDT) Anatomical Region Laterality Modality Other Specimen (Source) Anatomical Location Collection Method / Collectio n Time Received Time / Laterality Volume Narrative This result has an attachment that is no t available. Wilian Turner MD CV CARDIAC SERVICES ORDERABL ES ECHO COMPLETE WITH CONTRAST (09/29/2020 1:43 PM CDT) Anatomical Region Laterality Modality Echocardiography Specimen (Source) Anatomical Collection Method Collection Time Re ceived Time Location / / Volume Laterality 09/29/2020 12:50 PM CDT Narrative 09/29/2020 2:20 PM CDT [id number] [facility] [id number]^YUE^WILIAN^TJ [facility] Heart Echocardiography Laboratory [address] [facility] [address] [place] [address] Name: MARLON BENTON : 1950 Study Date: 09/29/2020 12:50 PM Age: 70 yrs Gender: Male Patient Location: [facility] Reason For Study: Chronic atrial fibrill ation (H) Ordering Physician: WILIAN TURNER Referring Physician: WILIAN TURNER Performed By: Silvia Rubio BSA: 2.3 m2 Height: 71 in Weight: 243 lb HR: 112 BP: 120/82 mmHg Procedure Complete Echo Adult. Breanna ([facility] #[id number]) given intravenously. Interpretation Summary The left ventricle [...] Procedure Note Odessa Aguila MD - 09/29/2020 [id number]^YUE^WILIAN^TJ [facility] Heart Echocardiography Laboratory [address] [facility] [address] [place] [address] Name: MARLON BENTON : 1950 Study Date: 09/29/2020 12:50 PM Age: 70 yrs Gender: Male Patient Location: [facility] Reason For Study: Chronic atrial fibrill ation (H) Ordering Physician: WILIAN TURNER Referring Physician: WILIAN TURNER Performed By: Silvia Rubio BSA: 2.3 m2 Height: 71 in Weight: 243 lb HR: 112 BP: 120/82 mmHg Procedure Complete Echo Adult. [facility]ison ([facility] #[id number]) given intravenously. Interpretation Summary The left ventricle [...] PM Wilian Turner MD CV ECHO ORDERABLES EKG 12-lead complete w/read - Clinics (performed today) (09/02/2020 4:09 PM CDT) Narrative This result has an attachment that is no t available. Wilian Turner MD ECG ORDERABLES documented in this encounter Visit Diagnoses Diagnosis Chronic atrial fibrillation (H) Atrial fibrillation Chronic atrial fibrillation (H) Atrial fibrillation documented in this encounter Care Teams Postal Service Window Clerk Relationship Specialty Start Date End Date No Ref-Primary, Physician PCP - General 07/15/20 Lino Radford DO Assigned PCP 08/26/20 [address] [place] [address] documented as of this encounter
--- OUTSIDE RECORDS SUMMARY | 2021-12-01 11:19 | XMS_ITS | Encounter Summary ---
:1950 Author Organization [place] Address [address] [place] [address] Care Team Providers Name Role Phone No Ref-Primary, Physician Primary Care Provider [phone] Lino Radford DO Unavailable Wilian Castañeda MD Unavailable Reason for Visit Reason Onset Date Comments Clinic Care Coordination - Follow-up 09/23/2020 Encounter Details Date Type Department Care Team Description 09/23/2020 Telephone [facility] Jerri Rincon RN Clinic Care Coordination Clinic [place] - Follow-up [address] [facility] [address] [place] [phone] Social History Tobacco Use Types Packs/Day Years [...] Telephone Encounter - Jerri Rincon RN - 09/23/2020 11:18 AM CDT 09/23/[address] Castañeda Patient should be evaluated in clinic with PCP or the ED. ??It sounds like he is having symptoms of dizziness after the fall and hitting his head Recommendation for follow up w PCP already discussed w pt. AlbertooRN 1120 am Telephone Encounter - Jerri Rincon RN - 09/23/2020 10:20 AM CDT 09/23/20 Pt called reporting that approx 1 week ago he had a bad fall in the night. He had been at a earlier in the day. He got up in the night to use the BR and went up and went right down. He states he went down hard and hit his head on the ground. Since then he has had a goose egg on the side of his forehead and experienced dizziness and feeling off. He does not have a home BP/P monitor . Pt was recently started on Metoprolol on 09/01 for chronic Afib. He is scheduled for a 2 week ZP placement on 09/29/20. Encouraged pt to follow up w PCP re: fall and dizziness that continue. Will update Dr Castañeda Pt voiced understanding and agreement with plan. AlbertooRN 1025 am documented in this encounter Plan of Treatment Not on filedocumented as of this encounter Visit Diagnoses Not on filedocumented in this encounter Care Teams Patient Clerical Assistant Relationship Specialty Start Date End Date No Ref-Primary, Physician PCP - General 07/15/20 Lino Radford DO Assigned PCP 08/26/20 [address] [place] [address] Wilian Castañeda MD Assigned Heart and Vascular 09/12/20 [address] [facility] Provider [address] [place] [address] documented as of this encounter
--- OUTSIDE RECORDS SUMMARY | 2021-12-01 11:19 | XMS_ITS | Encounter Summary ---
:1950 Author Organization [place] Address [address] [place] [address] Care Team Providers Name Role Phone No Ref-Primary, Physician Primary Care Provider [phone] Lino Radford DO Unavailable Wilian Castañeda MD Unavailable Encounter Details Date Type Department Care Team Description 09/29/2020 Travel Social History Tobacco Use Types Packs/Day [...] on filedocumented in this encounter Care Teams Locomotive Electrician Relationship Specialty Start Date End Date No Ref-Primary, Physician PCP - General 07/15/20 Lino Radford DO Assigned PCP 08/26/20 [address] [place] [address] Wilian Castañeda MD Assigned Heart and Vascular 09/12/20 [address] [facility] Provider [address] [place] [address] documented as of this encounter
--- OUTSIDE RECORDS SUMMARY | 2021-12-01 11:19 | XMS_ITS | Encounter Summary ---
:1950 Author Organization [place] Address [address] [place] [address] Care Team Providers Name Role Phone No Ref-Primary, Physician Primary Care Provider [phone] Lino Radford DO Unavailable Encounter Details Date Type Department Care Team Description 09/01/2020 Travel Social History Tobacco Use Types Packs/Day [...] on filedocumented in this encounter Care Teams Electrical And Instrument Engineer Relationship Specialty Start Date End Date No Ref-Primary, Physician PCP - General 07/15/20 Lino Radford DO Assigned PCP 08/26/20 [address] [place] [address] documented as of this encounter
--- OUTSIDE RECORDS SUMMARY | 2021-12-01 11:19 | XMS_ITS | Encounter Summary ---
:1950 Author Organization [place] Address [address] [place] [address] Care Team Providers Name Role Phone No Ref-Primary, Physician Primary Care Provider [phone] Savanah Gaming PA-C Unavailable [phone] Encounter Details Date Type Department Care Team Description 08/18/2020 Travel Social History Tobacco Use Types Packs/Day [...] been in contact with No / Unsure 08/18/2020 11:38 AM CDT someone who was confirmed or suspected to have Coronavirus / COVID-19? documented as of this encounter Plan of Treatment Not on filedocumented as of this encounter Visit Diagnoses Not on filedocumented in this encounter Care Teams Legal Advisor Relationship Specialty Start Date End Date No Ref-Primary, Physician PCP - General 07/15/20 Savanah Gaming PA-C Assigned PCP 06/24/20 08/25/20 [address] [place] [address] documented as of this encounter
--- OUTSIDE RECORDS SUMMARY | 2021-12-01 11:19 | XMS_ITS | Encounter Summary ---
:1950 Author Organization [place] Address [address] [place] [address] Care Team Providers Name Role Phone No Ref-Primary, Physician Primary Care Provider [phone] Lino Radford DO Unavailable Wilian Castañeda MD Unavailable Reason for Visit Reason Onset Date Comments Clinic Care Coordination - Follow-up 11/08/2020 blo od in urine---UTI Encounter Details Date Type Department Care Team Description 11/08/2020 Telephone [facility] Denisa Fisher, Clinic Care Coordination [facility] [place] RN - Follow-up (blood in [address] urine---U TI ) [facility] [address] [place] [address] Social History Tobacco Use Types Packs/Day Years Used Date Former Smoker Cigarettes 2 20 04/02/1971 - 0 04/02/1991 Smokeless Tobacco: Never Used Alcohol Use Standard Drinks/Week Comments Yes 0 (1 standard drink = 0.6 oz pure alcoho l) [facility] Alcohol Habits Answer Date Recorded How [...] Telephone Encounter - Teresa Mesa RN - 11/19/2020 10:35 AM CDT Spoke to pt to see if he was going to keep his OV on Sunday with Magda. Pt had Already planned on not keeping this one. Pt states that he has been doing well after stopping the Eliquis and he is aware of the stroke risk. Pt will be seeing his new PMD on 12/02, states that he had to cancel the other. Discussed Dr Castañeda mention of needing a Urology eval and also discussed that Watchman procedure. Pt like the idea of the WATCHMAN. Will send a brochure to pt to look at along with Dr Castañeda card with A Fib nurse line phone number on the card. Will need to reach back out to pt after his OV with Dr Mistry at [facility]. JNelsonRN Telephone Encounter - Jerri Rincon RN - 11/12/2020 2:05 PM CDT 11/12/[address] recd from Dr Castañeda -Stop Eliquis - Pt should see his PCP to determine source of bleeding. He may possibly need Urology consult or Watchman -Cancel DCCV for now Spoke w pt and explained recommendations. Pt has appt to establish care with Dr Cody Mistry at [facility] on 11/18. Plan was made to connect w pt on 11/19 . Pt voiced understanding and agreement w plan. Spoke w scheduling who cancelled COVID test and DCCV KHerroRN 210 pm Telephone Encounter - Jerri Rincon RN - 11/12/2020 10:14 AM CDT 11/12/20 Pt called today stating he is still having blood in urine. Recap: 10/27- Pt started on Eliquis 5 mg BID 10/28- Pt called stating he noted blood in his urine this morning. He had not drank any water the previous day, only beer and juice. Pt has hx of UTIs and rectal bleeding, encouraged pt to push fluids and to call back or head to UC for a urine culture. 11/04- pt called back stating he still had blood in urine and did not go to UC as instructed. Advised pt to go to ED for evaluation. Pt went to ED and dx with UTI, started on Kelflex 500 mg BID x 10 days 11/10- pt called to report urine cleared and no longer has blood in it and was feeling much better. 11/12- pt called stating blood in urine returned last night and continues this morning. He is taking antibiotics as prescribed and pushing fluids. Pt is scheduled for DCCV on 11/30. Pt states he is asymptomatic with Afib Will update Dr Castañeda and call pt back w recommendations. Pt voiced understanding and agreement with plan. Alan 1020 am Telephone Encounter - Denisa Fisher RN - 11/10/2020 11:13 AM CDT Patient called in follow to report his urine cleared yesterday and no longer has blood in it. He is feeling much better. Discussed that he needs to finish the full 10 days of antibiotics. He will be establishing care with his PCP next week for follow up. MICHAEL Bynum Telephone Encounter - Denisa Fisher RN - 11/08/2020 9:04 AM CDT Patient called and left message on AF nurse line after hours with update on ER visit on 11/04. Reportshe has been placed on antibiotics for UTI (keflex 500mg po bid x10 days). He is on day 4 today and feeling better however continues to have blood in urine. Asked patient to continue to take his antibiotic and force fluids and call on Sunday with update. If he has blood in urine after 5 days of antibiotics will review with Dr Castañeda. Patient does have follow up with PCP at [facility] in [place] on 11/18 he will be seeing Dr Cody Mistry. Patient agreed with plan and provided verbal understanding regarding above. MICHAEL Bynum documented in this encounter Plan of Treatment Not on filedocumented as of this encounter Visit Diagnoses Not on filedocumented in this encounter Care Teams Coil Builder Relationship Specialty Start Date End Date No Ref-Primary, Physician PCP - General 07/15/20 Lino Radford DO Assigned PCP 08/26/20 [address] [place] [address] Wilian Castañeda MD Assigned Heart and Vascular 09/12/20 [address] [facility] Provider [address] [place] [address] documented as of this encounter
--- OUTSIDE RECORDS SUMMARY | 2021-12-01 11:19 | XMS_ITS | Encounter Summary ---
:1950 Author Organization [place] Address [address] [place] [address] Care Team Providers Name Role Phone No Ref-Primary, Physician Primary Care Provider [phone] Lino Radford DO Unavailable Wilian Castañeda MD Unavailable Reason for Visit Reason Comments Hematuria Encounter Details Date Type Department Care Team Description 11/04/2020 Emergency [facility] Silvio Garcia PA-C [facility] [address] [place] [address] Urinary tract [facility] Lowell Ramos APRN [facility] [address] [place], [place] [id number] infection [address] [place] [address] Social History Tobacco Use Types Packs/Day Years [...] CDT Inhaled Oxygen Concentration - - Weight - - Height - - Body Mass Index - - documented in this encounter Discharge Instructions Discharge InstructionsLowell Ramos APRN CNP - 11/04/2020 5:29 PM CDT Take antibiotics as directed. Make sure to finish your entire course. Your urine is being cultured. They will call you if we need to change your antibiotics. AttachmentsThe following attachments cannot be sent through Care Everywhere. Bladder Infection, Male (Adult) ([place])documented in this encounter Medications at Time of Discharge Medication Sig Dispensed Refills Start Date End Date acetaminophen (TYLENOL) Take 500-1,000 mg 0 500 MG tablet by mouth every 6 hours as needed for mild pain apixaban ANTICOAGULANT Take 1 tablet (5 60 tablet 3 021 (ELIQUIS ANTICOAGULANT) 5 mg) by mouth 2 MG tabletIndications: times daily Chronic atrial fibrillation (H) carvedilol (COREG) 3.125 Take 1 tablet 60 tablet 3 10/28/19 21 MG tabletIndications: (3.125 mg) by mouth Chronic atrial 2 times daily (with fibrillation (H) meals) ondansetron (ZOFRAN) 4 MG Take 1 tablet (4 20 tablet 3 07/01 tabletIndications: Nausea mg) by mouth every 8 hours as needed for nausea cephALEXin (KEFLEX) 500 Take 1 capsule (500 20 capsule 0 07/202011/14/2020 MG capsule mg) by mouth 2 times daily for 10 days documented as of this encounter ED Notes Cassie Cabrera RN - 11/04/2020 5:35 PM CDT Patient alert and oriented. Respirations even and unlabored. All discharge education given. All questions answered. All medications explained in detail. Patient denies further needs and states that they are ready to leave. Patient ambulated out of the ER with steady gait. Fe Gabriel RN - 11/04/2020 3:28 PM CDT Patient comes in for evaluation of hematuria which started 4 days ago when patient was started on Eliquis. ABCs intact. Lowell Ramos APRN CNP - 11/04/2020 3:25 PM CDT History Chief Complaint: Hematuria The history is provided by the patient. Marlon Benton is a 70 year old male on Eliquis for atrial fibrillation with history of UTI, bladder diverticulum, and diverticulosis of the large intestine who presents with hematuria. The patient reports that the hematuria began on 10/27/20 after his strategic planning manager prescribed him Eliquis and Coreg for an upcoming cardioversion at the end of October. He reports that the blood in his urine has increased everyday since starting his medications. He notes that his strategic planning manager's nurse was concerned for a UTI, so he presented to a [facility] that directed him here to the ED. He endorses increased urgency to urinate but denies any pain with urination, fever, nausea, vomiting, or back pain. He notes that his last UTI was in July 2020. Review of Systems Constitutional: Negative for fever. Respiratory: Negative for shortness of breath. Cardiovascular: Negative for chest pain. Gastrointestinal: Negative for nausea and vomiting. Genitourinary: Positive for hematuria and urgency. Negative for dysuria. Musculoskeletal: Negative for back pain. All other systems reviewed and are negative. Allergies: No known drug allergies Medications: Eliquis Coreg Zofran Past Medical History: Diverticulosis of large Intestine Bladder diverticulum Colonic polyps Morbid obesity Chronic atrial fibrillation UTI Past Surgical History: Colonoscopy Social History: Presents to the emergency department alone. Physical Exam Patient Vitals for the past 24 hrs: BP Temp Temp src Pulse Resp SpO2 11/04/20 1630 -- -- -- -- -- 96 % 11/04/20 1615 -- -- -- -- -- 95 % 11/04/20 1600 (!) 168/108 -- -- 103 -- 95 % 11/04/20 1529 (!) 158/124 98.4 ??F (36.9 ??C) Oral 105 16 99 % Physical Exam General: Alert, No obvious discomfort, well kept Eyes: PERRL, conjunctivae pink no scleral icterus or conjunctival injection ENT: Moist mucus membranes, posterior oropharynx clear without erythema or exudates, No lymphadenopathy, Normal voice Resp: Lungs clear to auscultation bilaterally, no crackles/rubs/wheezes. Good air movement CV: Normal rate and rhythm, no murmurs/rubs/gallops GI: Abdomen soft and non-distended. Normoactive BS. No tenderness, guarding or rebound, No masses Skin: Warm, dry. No rashes or petechiae Musculoskeletal: No peripheral edema or calf tenderness, Normal gross ROM Neuro: Alert and oriented to person/place/time, normal sensation Psychiatric: Normal affect, cooperative, good eye contact Emergency Department Course Laboratory: UA: Color: Simpson(A), Appearance: Cloudy(A), Blood: Large(A), Protein Albumin: 70(A), Leukocyte Esterase: Large(A), WBC: >182(H), WBC clumps: Present(A), RBC: >182(H), Yeast: Many(A), Mucus: Present(A), o/w Negative Urine Culture Aerobic Bacterial: Pending Emergency Department Course: Reviewed: I reviewed nursing notes, vitals, past medical history and care everywhere Assessments: 171 I obtained history and examined the patient as noted above. 1717 Findings and plan explained to the Patient. Patient discharged home with instructions regardingsupportive care, medications, and reasons to return. The importance of close follow-up was reviewed. Interventions Medications cephALEXin (KEFLEX) capsule 500 mg (500 mg Oral Given 11/04/20 1733) Disposition: The patient was discharged to home. Impression & Plan Medical Decision Making: Marlon Benton is a 70 year old male who presents today for evaluation of hematuria. He was placed on Xarelto to prepare for a cardioversion at the end of the month. He reports that he has a history of urinary tract infections and he noted that since being on Xarelto he has had increasing evidence of blood in his urine. [facility] who felt that there was a on known reason that he should be concerned for urinary tract infection and that he should come to the ER for further evaluation. Patient was initially advised to be checked for urinary tract infection by his strategic planning manager's nurse. His examination shows no physical findings. He has no signs of sepsis. He is tolerating p.o. intake without difficulty. Urinalysis shows clear urinary tract infection. He is advised of these findings and reassured that the blood in his urine is likely a combination of the infection as well as the Xarelto. He is started on antibiotics with first dose given here. Strict return protocols were discussed. Follow-up with primary care provider for further concerns. He appears to be safe and appropriate for outpatient management follow-up and is discharged home. Covid-19 Marlon Benton was evaluated during a global COVID-19 pandemic, which necessitated consideration that the patient might be at risk for infection with the SARS-CoV-2 virus that causes COVID-19. Applicable protocols for evaluation were followed during the patient's care. Diagnosis: ICD-10-CM 1. Urinary tract infection N39.0 Discharge Medications: New Prescriptions CEPHALEXIN (KEFLEX) 500 MG CAPSULE Take 1 capsule (500 mg) by mouth 2 times daily for 10 days Scribe Disclosure: Yi Acosta, am serving as a scribe at 5:00 PM on 11/04/2020 to document services personally performed by Lowell Ramos CNP based on my observations and the provider's statements to me. Lowell Ramos APRN CNP 11/04/20 2491 documented in this encounter Plan of Treatment Not on filedocumented as of this encounter Procedures Procedure Name Priority Date/Time Associated Comments Diagnosis ROUTINE UA WITH STAT 11/04/2020 3:56 PM Result s for this MICROSCOPIC REFLEX TO CDT proced ure are in CULTURE the results section. URINE CULTURE STAT 11/04/2020 3:56 PM Results for this CDT procedure are i n the results section. documented in this encounter Results (ABNORMAL) Urine Culture (11/04/2020 3:56 PM CDT) [facility] Method Time Signature Culture >100,000 CFU/mL ADRIANA 11/08/2020 [facility] Aerococcus 10:55 AM CDT LABORATORY urinae (A) Specimen Anatomical Collection Method Collection Time Receive d Time (Source) Location / / Volume Laterality Urine MID-STREAM URINE Non-blood 11/04/2020 3:56 PM 11/04 4:36 SAMPLE / Unknown Collection / CDT PM CDT Unknown Organism Antibiotic Method Susceptibility Aerococcus urinae Penicillin ADRIANA <=0.03 ug/mL: Susceptible Aerococcus urinae Cefotaxime ADRIANA <=0.25 ug/mL: Susceptible Aerococcus urinae Ceftriaxone ADRIANA <=0.25 ug/mL: Susceptible Aerococcus urinae Vancomycin ADRIANA <=0.12 ug/mL: Susceptible Aerococcus urinae Tetracycline ADRIANA <=0.5 ug/mL: S usceptible Aerococcus urinae Levofloxacin ADRIANA <=0.25 ug/mL: Susceptible Violet Garcia PA-C LAB - MICRO GENERAL ORDERABL ES Performing Organization Address City/State/ZIP Code Phon e Number [facility]AT[facility] [place] [place] [id number] Diag. Lab [address] [facility], [address] [facility] Infectious [place], [place] [phone] Diseases Diagnostic [id number], [facility] Lab (IDDL) [address] [facility], [address] (ABNORMAL) UA with Microscopic reflex to Culture (11/04/2020 3:56 PM CDT) [facility] Method Time Signature Color Urine Simpson (A) Colorless, 11/04/2020 [facility] Straw, 4:37 PM CDT Light Yellow, Yellow Appearance Urine Cloudy (A) Clear 11/04/2020 [facility]ORATO RY 4:37 PM CDT Glucose Urine Negative Negative 11/04/2020 LABORATORY mg/dL 4:37 PM CDT Bilirubin Urine Negative Negative 11/04/2020 [facility] 4:37 PM CDT Ketones Urine Negative Negative 11/04/2020 [facility] mg/dL 4:37 PM CDT Specific [place] 1.019 1.003 - 11/04/2020 [facility] LABORATOR Y Urine 1.035 4:37 PM CDT Blood Urine Large (A) Negative 11/04/2020 [facility] 4:37 PM CDT pH Urine 5.5 5.0 - 7.0 11/04/2020 [facility] 4:37 PM CDT Protein Albumin 70 (A) Negative 11/04/2020 LABORATORY Urine mg/dL 4:37 PM CDT Urobilinogen Normal Normal, 2.0 11/04/2020 LABORATORY Urine mg/dL 4:37 PM CDT Nitrite Urine Negative Negative 11/04/2020 LABORATORY 4:37 PM CDT Leukocyte Large (A) Negative 11/04/2020 LABORATORY Esterase Urine 4:37 PM CDT WBC Clumps Urine Present (A) None Seen 11/04/2020 [facility] LABORAT ORY /HPF 4:37 PM CDT Budding Yeast Many (A) None Seen 11/04/2020 LABORATORY Urine /HPF 4:37 PM CDT Mucus Urine Present (A) None Seen 11/04/2020 LABORATORY /LPF 4:37 PM CDT RBC Urine >182 (H) <=2 /HPF 11/04/2020 [facility] 4:37 PM CDT WBC Urine >182 (H) <=5 /HPF 11/04/2020 LABORATORY 4:37 PM CDT Specimen Anatomical Collection Method Collection Time Receive d Time (Source) Location / / Volume Laterality Urine MID-STREAM URINE Non-blood 11/04/2020 3:56 PM 11/04 4:05 SAMPLE / Unknown Collection / CDT PM CDT Unknown Narrative [facility] - 11/04/2020 4:37 PM CDT Urine Culture ordered based on laborator y criteria Violet Garcia PA-C LAB - URINE ORDERABLES Performing Organization Address City/State/ZIP Code [place] [address] Care Lab [address] Lab (1st floor, no room number) documented in this encounter Visit Diagnoses Diagnosis Urinary tract infection Urinary tract infection, site not specif ied documented in this encounter Administered Medications Inactive Administered Medications - up to 3 most recent administrations Medication Order MAR Action Action Date Dose Rate Site cephALEXin (KEFLEX) capsule 500 mg Given 11/04/2020 5:33 PM CDT 500 mg STAT, 500 mg, Oral, ONCE, On Celine 11/04/20 at 1725, For 1 dose, Indications: Urinary Tract Infection documented in this encounter Active and Recently Administered Medications Times are shown in CDT. Scheduled Medication Order 11/02/2020 11/03/2020 11/04/2020 cephALEXin (KEFLEX) capsule 500 mg (COMPLETED) 1733 (Given - Provider: Cassie Cabrera RN) STAT, 500 mg, Oral, ONCE, On Celine 11/04/20 at 1725, For 1 dose, Indications: Urinary Tract Infection documented in this encounter Care Teams Receivable Clerk Relationship Specialty Start Date End Date No Ref-Primary, Physician PCP - General 07/15/20 Lino Radford DO Assigned PCP 08/26/20 [address] [place], [place] [id number] Wilian Castañeda MD Assigned Heart and Vascular 09/12/20 [address] [facility] Provider [address] [place], [place] [id number] documented as of this encounter
--- OUTSIDE RECORDS SUMMARY | 2021-12-01 11:19 | XMS_ITS | Encounter Summary ---
:1950 Author Organization [place] Address [address] [place] [address] Care Team Providers Name Role Phone No Ref-Primary, Physician Primary Care Provider [phone] Lino Radford DO Unavailable Wilian Castañeda MD Unavailable Encounter Details Date Type Department Care Team Description 10/27/2020 Travel Social History Tobacco Use Types Packs/Day [...] on filedocumented in this encounter Care Teams Mesh Worker Relationship Specialty Start Date End Date No Ref-Primary, Physician PCP - General 07/15/20 Lino Radford DO Assigned PCP 08/26/20 [address] [place] [address] Wilian Castañeda MD Assigned Heart and Vascular 09/12/20 [address] [facility] Provider [address] [place] [address] documented as of this encounter
--- OUTSIDE RECORDS SUMMARY | 2021-12-01 11:19 | XMS_ITS | Encounter Summary ---
:1950 Author Organization [facility] Address [address] [place] [address] Care Team Providers Name Role Phone No Ref-Primary, Physician Primary Care Provider [phone] Lino Radford DO Unavailable Wilian Castañeda MD Unavailable Encounter Details Date Type Department Care Team Description 11/04/2020 Travel Social History Tobacco Use Types Packs/Day [...] on filedocumented in this encounter Care Teams Sole Assessor Relationship Specialty Start Date End Date No Ref-Primary, Physician PCP - General 07/15/20 Lino Radford DO Assigned PCP 08/26/20 [address] [place] [address] Wilian Castañeda MD Assigned Heart and Vascular 09/12/20 [address] [facility] Provider [address] [place] [address] documented as of this encounter
--- OUTSIDE RECORDS SUMMARY | 2021-12-01 11:19 | XMS_ITS | Encounter Summary ---
:1950 Author Organization [place] [facility] Address [address] [place] [address] Care Team Providers Name Role Phone No Ref-Primary, Physician Primary Care Provider [phone] Lino Radford DO Unavailable Wilian Castañeda MD Unavailable Reason for Visit Reason Onset Date Comments Medication Question 11/01/2020 Encounter Details Date Type Department Care Team Description 11/01/2020 Telephone [facility] Jerri Rincon RN Medication Question Clinic [address] [place] [address] Social History Tobacco Use Types [...] Telephone Encounter - Jerri Rincon RN - 11/01/2020 9:28 AM CDT 11/01/20 Pt called requesting a refill of Eliquis. In[facility] pt [facility]. Pt also asked how long he will need to be on Eliquis as it is very expensive for him. Explained thathe will need to continue at least for 30 days post DCCV but could be longer if it is unsuccessful. Recommended pt reach out to insurance to find out preferred anticoagulant for better pricing. Briefly discussed Warfarin. Pt states he will talk to his insurance and call back if he decieds he wants to make a switch. Pt voiced understanding and agreement with plan. CARLOSerroRN 930 am documented in this encounter Plan of Treatment Not on filedocumented as of this encounter Visit Diagnoses Not on filedocumented in this encounter Care Teams Fisheries Manager Relationship Specialty Start Date End Date No Ref-Primary, Physician PCP - General 07/15/20 Lino Radford DO Assigned PCP 08/26/20 [address] [place], [place] [id number] Wilian Castañeda MD Assigned Heart and Vascular 09/12/20 [address] [facility] Provider [address] [place] [address] documented as of this encounter
--- OUTSIDE RECORDS SUMMARY | 2021-12-01 11:19 | XMS_ITS | Encounter Summary ---
:1950 Author Organization [facility] Address [address] [place] [address]. [place] [address] Care Team Providers Name Role Phone No Ref-Primary, Physician Primary Care Provider [phone] Savanah Gaming PA-C Unavailable [phone] Reason for Referral CV Cardio consult (Routine) - Closed Specialty Diagnoses / Procedures Referred By Contact Refer red To Contact Cardiovascular Disease Diagnoses Chronic atrial fibrillation (H) Lino Radford DO [facility], [id number] [place], [place] [address] [address] [place] [address] [address] [place] [address] Phone: Fax: Referral ID Status Reason Start Date Expiration Date Visits Requ ested Visits Authorized [id number] Closed 08/23/2020 08/23/2021 1 1 Reason for Visit Reason Comments Urgent Care f/u Atrial Fib Encounter Details Date Type Department Care Team Description 08/23/2020 Office Visit [facility] Lino Radford, Chronic atrial fibrillation (H); Clinic [facility] Screening for hyperlipidemia; [address] [facility] [address] [facility]; [place], [place] Need for Td v accine [phone] Social History Tobacco Use Types Packs/Day Years [...] Sign Reading Time Taken Comments Blood Pressure 120/84 08/23/2020 1:02 PM CDT Pulse 84 08/23/2020 2:02 PM CDT Temperature 36.7 ??C (98 ??F) 08/23/2020 1:02 PM CDT Respiratory Rate 12 08/23/2020 1:02 PM CDT Oxygen Saturation - - Inhaled Oxygen Concentration - - Weight 110.7 kg (244 lb) 08/23/2020 1:02 PM CDT Height 180.3 cm (5' 11) 08/23/2020 1:02 PM CDT Body Mass Index 34.03 08/23/2020 1:02 PM CDT documented in this encounter Patient Instructions Patient InstructionsTLino alberts DO - 08/23/2020 1:30 PM CDT Images from the original note were not included. Try to get up and down from lying position slowly so you do not get dizzy. See info on atrial fibrillation in hand out. I will review you studies via Fire[employer]. Someone should be calling you over the next 2 days regarding the referral. Thank you for choosing [facility] today for your health care needs. [facility] transforming primary care At [facility], we???re constantly working to improve how we serve our patients and communities. We???re currently making changes to the way we deliver care. Most of the work is behind the scenes, but you???ll benefit from our efforts to make it easier and more convenient to stay connected to [facility] and your care team to maintain your optimal health. Benefits of a primary care provider If you don???t have a designated primary care provider yet, we encourage you to get to know our careteam online, and find a provider you???d like to see. Most of our providers have a short video on their online provider page. Visit [email or web address] to explore our providers and locations. Benefits of having a primary care provider include: ??? A provider who sees you regularly is more likely to notice changes in your health. ??? They get to know you - your health history, family history and goals, making it easier to make ahealth plan together. ??? You get to know them - making health-related conversations and decisions easier ??? Primary care doctors help you when you???re sick or hurt - but also focus on keeping you healthywith preventive care and screenings. Online access to your health records and care team FireBl[employer] is our online tool that makes it easy to see your health care information and communicate with your care team. [employer] allows you to: ??? View your health maintenance plan so you know when you???re due for a preventive screening ??? Send secure messages to your care team ??? View your health history and visit summaries ??? Schedule appointments ??? Complete questionnaires and eCheck-in before appointments ??? Get care from your provider with an e-visit ??? View and pay your bill Sign up at [email or web address]. Once you have an account, you also can download the mobile carmen. Connecting to fast and convenient care When you need fast, convenient care - consider one of the following options: ??? Video Visit: A convenient care option for visiting with your provider out of the comfort of yourown home. Most of the things you come to the clinic to address with your provider can now be done virtually through a video. This includes your chronic medication follow up, questions or concerns you may have, and even your annual Medicare Wellness Visit. ??? Phone Visit: Another convenient option for follow up of common problems that may require a more in-depth discussion with your provider. ??? E-visit: When you need acute care quickly, or have a quick question about your medication, an E-visit is completed through [employer] and your provider will respond within one business day. In-person ??? Clinic appointments: Schedule an appointment at a clinic close to you anytime online at [facility] or call [facility]. Urgent Care: Visit one of our Urgent Care locations throughout the [facility]. View locations and estimated wait times at [email or web address]. Patient Education Understanding Atrial Fibrillation ?? An arrhythmia is any problem with the speed or pattern of the heartbeat. Atrial fibrillation (AFib) is the most common type of arrhythmia. It causes fast, chaotic electrical signals in the atria. This makes it hard for the heart to work as it should. It also affects how much blood your heart can pump out to the body. AFib may occur once in a while and go away on its own. Or it may continue for longer periods and need treatment. AFib can lead to serious problems, such as stroke. Your healthcare provider will need to monitor andmanage it. What happens during atrial fibrillation??? The heart has an electrical system that sends signals to control the heartbeat. As signals move through the heart, they tell the heart???s upper chambers (atria) and lower chambers (ventricles) when tosqueeze (contract) and relax. This lets blood move through the heart and out to the body and lungs. With AFib, the atria receive abnormal signals. This causes them to contract in a fast and irregular way, and out of sync with the ventricles. When this happens, the atria also have a harder time movingblood into the ventricles. Blood may then pool in the atria. This increases the risk for blood clotsand stroke. The ventricles also may contract too quickly and irregularly. As a result, they may not pump blood to the body and lungs as well as they should. This can weaken the heart muscle over time and cause heart failure. What causes atrial fibrillation? AFib is more common in older adults. It has many possible causes: ?? Coronary artery disease ?? Heart valve disease ?? Heart attack ?? Heart surgery ?? High blood pressure ?? Thyroid disease ?? Diabetes ?? Lung disease ?? Sleep apnea ?? Heavy alcohol use In some cases of AFib, doctors don't know the cause. What are the symptoms of atrial fibrillation? AFib may not cause symptoms. If symptoms do occur, they may include: ?? A fast, pounding, irregular heartbeat ?? Shortness of breath ?? Tiredness ?? Dizziness or fainting ?? Chest pain How is atrial fibrillation treated? Treatments for AFib can include any of the options below. ?? Medicines. You may be prescribed: ? Heart rate medicines to help slow down the heartbeat ? Heart rhythm medicines to help the heart beat more regularly ? Blood thinners or anti-clotting medicines to help reduce the risk for blood clots and stroke. ?? Left atrial appendage closure. Your healthcare provider may advise this device to prevent stroke.You may need if you are at high risk for stroke but have problems taking blood-thinner (anticoagulant) medicines. The device is placed in the part of the heart where most clots form. This area is called the left atrial appendage (KATHI). It's a pouch-like structure in the muscle wall of the left atrium.The device closes off the KATHI to prevent clots moving from the heart to the brain and causing a stroke. ?? Electrical cardioversion. Your healthcare provider uses special pads or paddles to send one or more brief electrical shocks to the heart. This can help reset the heartbeat to normal. ?? Ablation. Long, thin tubes (catheters) are threaded through a blood vessel to the heart. There, the catheters send out hot or cold energy to the areas causing the abnormal signals. This energy destroys the problem tissue or cells. This improves the chances that your heart will stay in normal rhythmwithout using medicines. If your heart rate and rhythm can???t be controlled, you may need ablation and a pacemaker. These will help control the heart rate and regularity of the heartbeat. ?? Surgery. During surgery, your healthcare provider may use different methods to create scar tissuein the areas of the heart causing the abnormal signals. The scar tissue disrupts the abnormal signals and may stop AFib from occurring. ?? Hybrid surgical-catheter ablation for AFib. This treatment is used for people with AFib that continues or is hard to treat.. It combines surgery with a catheter ablation. During the surgery, the surgeon makes small cuts (incisions) between the ribs in the chest or in the abdomen near the sternum. The surgeon puts a scope through the incisions to get to the backside of the heart. The catheter portion of the procedure is done by putting a catheter into a vein in the groin. The catheter is guided tothe inside of the heart. Using the catheter, radiofrequency ablation is done to destroy the tissue inside the heart that is causing the AFib. Using both of these approaches may work better to block the abnormal electrical signals and be a more permanent treatment for persistent AFib. What are possible complications of atrial fibrillation? Complications can include: ?? Blood clots ?? Stroke ?? Heart failure. This problem occurs when the heart muscle weakens so much that it can no longer pump blood well. When should I call my healthcare provider? Call your healthcare provider right away if you have any of these: ?? Symptoms that don???t get better with treatment, or get worse ?? New symptoms Jl last reviewed this educational content on 07/01/2018 ?? 4314-6882 The [employer]. All rights reserved. This information is not intended as a substitute for professional medical care. Always follow your healthcare professional's instructions. Patient Education Discharge Instructions for Atrial Fibrillation You have been diagnosed with an abnormal heart rhythm called atrial fibrillation (AFib).??This meansyour heart???s 2 upper chambers quiver rather than squeeze the blood out in a normal pattern. This leads to an irregular and sometimes rapid heartbeat. Some people will have symptoms such as a flip-flopping heartbeat, chest pain, lightheadedness, or shortness of breath. Other people may have no symptoms at all. AFib is serious because it affects the heart???s ability to fill with blood as it should. Blood clots may form. This increases the risk for stroke. Untreated, it can also lead to heart failure. AFib can be controlled. With??treatment, most??people lead normal lives. Treatment options Treatment for AFib depends on your age, symptoms, how long you have had it, and other factors. You will have??a complete evaluation to find out if you have any abnormalities that caused your heart to go into AFib. This might be blocked heart arteries, heart valve problems, or a thyroid problem. Your doctor will assess your case and discuss choices with you. Treatment choices may include: ?? Treating an underlying??disorder that puts you at risk for atrial fibrillation. For example, correcting an abnormal thyroid or electrolyte problem, or treating a blocked heart artery. ?? Restoring a normal heart rhythm with an electrical shock (cardioversion) or with an antiarrhythmic medicine (chemical cardioversion) ?? Using medicine to control your heart rate ?? Preventing the??risk for blood clot and stroke using blood-thinning medicines, such as aspirin orclopidogrel. ?? Preventing the risk of blood clot and stroke with procedures such as left atrial appendage closure. In this procedure, a small pouch in the top of your atrium where blood clots often form is blockedoff. It can prevent blood clots and reduce stroke risk without the need for lifelong blood thinner (a nticoagulants). ?? Doing catheter ablation or a surgical maze procedure. These??procedures use different methods to create scar tissue in certain areas of heart. This interrupts the abnormal electrical signals that cause AFib.??This may be an option when??medicines don't work, or instead of long-term medicine. ?? Other treatment choices may be recommended for you by your doctor. Managing risk factors for stroke and preventing heart failure are important parts of any??treatment plan for AFib. Home care ?? Take your medicines exactly as directed. Don???t skip doses. ?? Work with your doctor to find the right medicines and doses for you. ?? Learn to take your own pulse. Keep a record of your results. Ask your doctor which pulse rates mean that you need medical attention. Slowing your pulse is often the goal of treatment. Ask your doctor if it???s OK for you to use an automatic machine to check your pulse at home. Sometimes these machines don???t count the pulse correctly with AFib. ?? Limit your intake of coffee, tea, cola, and other drinks with caffeine. Talk??with your doctor about whether you should cut out caffeine. ?? Don't take vhbw-hdn-qpzpfnv medicines that have caffeine in them. Also avoid medicines with pseudoephedrine. ?? Let your doctor know what medicines you take, including prescription and lhcp-dno-tiugrng medicines, as well as any supplements. They interfere with some medicines given for AFib. ?? Ask your doctor about whether??you can drink alcohol. Some people need to avoid??alcohol??to better treat AFib. If you are taking blood-thinner medicines, alcohol may interfere with them by increasing their effect. ?? Never take stimulants such as amphetamines or cocaine. These drugs can speed up??your heart rate and trigger AFib. ?? Manage your weight. If you are above your ideal body weight, losing excess pounds (kilograms)??can reduce your incidence of AFib. Follow-up care Follow up with your doctor, or as advised. When to call your healthcare provider Call your healthcare provider right away if you have any of the following: ?? Weakness ?? Dizziness ?? Fainting ?? Fatigue ?? Shortness of breath ?? Chest pain with increased activity ?? A change in the usual regularity of your heartbeat, or an unusually fast heartbeat [employer] last reviewed this educational content on 07/31/2018 ?? [id number] The [employer]. All rights reserved. This information is not intended as a substitute for professional medical care. Always follow your healthcare professional's instructions. documented in this encounter Progress Notes Lino Radford DO - 08/23/2020 1:30 PM CDT Assessment & Plan Chronic atrial fibrillation (H) - TSH with free T4 reflex FUTURE anytime - CARDIOLOGY EVAL ADULT REFERRAL Cardiac arrhythmia - EKG 12-lead complete w/read - Clinics Screening for hyperlipidemia - Lipid panel reflex to direct LDL Fasting Preventative health care - Basic metabolic panel FUTURE anytime - A1C FUTURE anytime Need for Td vaccine DTaP order corrected to TD. - TD PRESERV FREE, IM (7+ YRS) 30 minutes spent on the date of the encounter doing chart review, history and exam, documentation and further activities per the note Return in about 3 months (around 11/23/2020) for Routine preventive. Lino Radford DO [facility] Subjective Pat is a 70 year old who presents for the following health issues HPI ED/UC Followup: Facility: [facility] Date of visit: 08/09/20 Reason for visit: lightheadedness Current Status: stable- wants to schedule heart test Review of Systems Patient is seen for primary reason of wanting a referral to cardiology to address his atrial fibrillation. He states he has had atrial fibrillation in the past prior to moving to [place] from [place]. He is unsure exactly what it was called, but may have been paroxysmal atrial fibrillation. He tried to go for a walk a couple days ago, and he got dizzy, so he decided he needed to get his Afib treated. On my calculation during exam, he scores a 1 on [id number] risk stratification. Considering this, I told him I did not recommend starting anticoagulation treatment at this time. At time of this exam, he feels fine. No chest pain or shortness of breath, including when walking into clinic. No dizziness at time of exam. Objective BP 120/84 Pulse 74 Temp 98 ??F (36.7 ??C) (Oral) Resp 12 Ht 1.803 m (5' 11) Wt 110.7 kg (244 lb) BMI 34.03 kg/m?? Body mass index is 34.03 kg/m??. Physical Exam Vital signs reviewed. Patient is in no acute appearing distress. Breathing appears nonlabored. Patient is alert and oriented ??3. Patient is very pleasant, making good eye contact and responding with clear fluent speech. Heart: Heart rate is irregular-irregular without murmur. Lungs: Lungs are clear to auscultation with good airflow bilaterally. Skin/extremities: Warm and dry, with no ankle edema. Lab results are pending at time of dictation. documented in this encounter Nursing Notes Audrey Henderson, ALEXA - 08/23/2020 1:30 PM CDT Prior to immunization administration, verified patients identity using patient???s name and date of . Please see Immunization Activity for additional information. Screening Questionnaire for Adult Immunization Are you sick today? No Do you have allergies to medications, food, a vaccine component or latex? No Have you ever had a serious reaction after receiving a vaccination? No Do you have a long-term health problem with heart, lung, kidney, or metabolic disease (e.g., diabetes), asthma, a blood disorder, no spleen, complement component deficiency, a cochlear implant, or a spinal fluid leak? Are you on long-term aspirin therapy? No Do you have cancer, leukemia, HIV/AIDS, or any other immune system problem? No Do you have a parent, brother, or sister with an immune system problem? No In the past 3 months, have you taken medications that affect your immune system, such as prednisone,other steroids, or anticancer drugs; drugs for the treatment of rheumatoid arthritis, Crohn???s disease, or psoriasis; or have you had radiation treatments? No Have you had a seizure, or a brain or other nervous system problem? No During the past year, have you received a transfusion of blood or blood products, or been given immune (gamma) globulin or antiviral drug? No For women: Are you or is there a chance you could become during the next month? No Have you received any vaccinations in the past 4 weeks? No Immunization questionnaire answers were all negative. Per orders of Dr. Radford, injection of Td given by Audrey Henderson CMA. Patient instructed to remain in clinic for 15 minutes afterwards, and to report any adverse reaction to me immediately. Screening performed by Audrey Henderson CMA on 08/23/2020 at 2:22 PM. documented in this encounter Plan of Treatment Scheduled Orders Name Type Priority Associated Diagnoses Order S chedule Basic metabolic panel Lab Routine Preventative heal th care Expected: 08/23/2020 FUTURE anytime (Approximate) , Expires: 2021 A1C FUTURE anytime Lab Routine Preventative health care Expected: 08/23/2020 (Approximate), Expires: 2021 Lipid panel reflex to Lab Routine Screening for Expec jill: 08/23/2020 direct LDL Fasting hyperlipidemia (Approx imate), Expires: 2021 TSH with free T4 Lab Routine Chronic atrial fibrill ation Expected: 08/23/2020 reflex FUTURE anytime (H) (Appro ximate), Expires: 2021 Hepatitis C Screen Lab Routine Expected: 08/23/2020 Reflex to HCV RNA Quant (Carmen roximate), and Genotype Expires: 2021 Scheduled Referrals Name Type Priority Associated Diagnoses Order S chedule CARDIOLOGY EVAL ADULT Referral Routine Chronic atrial Expe cted: REFERRAL fibrillation (H) 08/23/2020, Expires: 08/23/2021 documented as of this encounter Procedures Procedure Name Priority Date/Time Associated Diagnosis Comme nts EKG 12-LEAD COMPLETE Routine 08/23/2020 Chronic atrial Resul ts for this W/READ - CLINICS fibrillation (H) procedu re are in the results section . documented in this encounter Results EKG 12-lead complete w/read - Clinics (08/23/2020) Narrative This result has an attachment that is no t available. Lino Radford DO ECG ORDERABLES documented in this encounter Visit Diagnoses Diagnosis Chronic atrial fibrillation (H) Atrial fibrillation Screening for hyperlipidemia Screening for lipoid disorders Preventative health care Routine general medical examination at a health care facility Need for Td vaccine Need for prophylactic vaccination with t etanus-diphtheria (Td) documented in this encounter Care Teams Enterprise Project Manager Relationship Specialty Start Date End Date No Ref-Primary, Physician PCP - General 07/15/20 Savanah Gaming PA-C Assigned PCP 06/24/20 08/25/20 [address] [place] [address] documented as of this encounter
--- OUTSIDE RECORDS SUMMARY | 2021-12-01 11:19 | XMS_ITS | Encounter Summary ---
:1950 Author Organization [facility] Address [address] [place] [address] Care Team Providers Name Role Phone No Ref-Primary, Physician Primary Care Provider [phone] Lino Radford DO Unavailable Wilian Castañeda MD Unavailable Justine Laurent PA-C Unavailable [phone] Encounter Details Date Type Department Care Team Description 11/04/2020 Documentation Only INTERFACED REPORT Unknown, Provider Social History Tobacco Use Types Packs/Day Years [...] on filedocumented in this encounter Care Teams Dramatic Teacher Relationship Specialty Start Date End Date No Ref-Primary, Physician PCP - General 07/15/20 Lino Radford DO Assigned PCP 08/26/20 [address] [place] [address] Wilian Castañeda MD Assigned Heart and Vascular 09/12/20 [address] Provider [address] [address] Justine Laurent, Assigned Surgical Provider 01/02/21 [place] [address] [address] documented as of this encounter
--- OUTSIDE RECORDS SUMMARY | 2021-12-01 11:19 | XMS_ITS | Encounter Summary ---
:1950 Author Organization [facility] Address [address] [place] [address] Care Team Providers Name Role Phone No Ref-Primary, Physician Primary Care Provider [phone] Savanah Gaming PA-C Unavailable [phone] Encounter Details Date Type Department Care Team Description 08/23/2020 Telephone [facility] No Ref-Primary, [place] Physician [address] [facility] [place] [address] Social History Tobacco Use Types Packs/Day Years [...] this encounter Miscellaneous Notes Telephone Encounter - Branden Tobar RN - 08/23/2020 10:48 AM CDT Patient calls, Had EKG done at [facility] 08/09/2020, per office notes Discussed with pt to follow up in ER I am concerned about the EKG findings Patient refused to go to the ER I did also encourage him to follow-up with cardiology for further evaluation he refused that too And did sign AMA form and decided to stop at the lab for lab draw CBC and also CMP within normal limits Patient now wanting to repeat EKG and follow-up on this visit findings, patient not interested in EDor UC visit, wants next in clinic visit Branden Tobar RN ?? documented in this encounter Plan of Treatment Not on filedocumented as of this encounter Visit Diagnoses Not on filedocumented in this encounter Care Teams Residential Plumber Relationship Specialty Start Date End Date No Ref-Primary, Physician PCP - General 07/15/20 Savanah Gaming PA-C Assigned PCP 06/24/20 08/25/20 [address] [place] [address] documented as of this encounter
--- OUTSIDE RECORDS SUMMARY | 2021-12-01 11:19 | XMS_ITS | Encounter Summary ---
:1950 Author Organization [facility] Address [address] [place] [address] Care Team Providers Name Role Phone No Ref-Primary, Physician Primary Care Provider [phone] Lino Radford DO Unavailable Wilian Castañeda MD Unavailable Encounter Details Date Type Department Care Team Description 12/02/2020 Medical Correspondence [facility] Scan, CLINIC REFERRAL Health Info [facility] Non-Provider [facility] [address] [place] [id number] Social History Tobacco Use Types Packs/Day Years [...] on filedocumented in this encounter Care Teams Harmonic Analyst Relationship Specialty Start Date End Date No Ref-Primary, Physician PCP - General 07/15/20 Lino Radford DO Assigned PCP 08/26/20 [id number] [place], [place] [id number] Wilian Castañeda MD Assigned Heart and Vascular 09/12/20 6405 GELY Rodriguez SARA Provider [address] SOHEILA PEREZ [id number] documented as of this encounter
--- OUTSIDE RECORDS SUMMARY | 2021-12-01 11:20 | XMS_ITS | Encounter Summary ---
:1950 Author Organization [place] Address [address] [place] [address]. [place] [address] Care Team Providers Name Role Phone No Ref-Primary, Physician Primary Care Provider [phone] Savanah Gaming PA-C Unavailable [phone] Encounter Details Date Type Department Care Team Description 08/05/2020 Orders Only [facility] Francisco Peguero for screening Clinic Antonette Morrow MD for other viral [address] [place] [address] [facility] [place], [place] GASTROINTESTINAL [address] [address] [phone] [place] [address] Social History Tobacco Use Types Packs/Day Years Used Date Former Smoker 2 20 04/02/1971 - 0 04/02/1991 Smokeless Tobacco: Never Used Alcohol Use Standard Drinks/Week Comments Yes 0 (1 standard drink = 0.6 oz pure alcoho l) [facility] Alcohol Habits Answer Date Recorded How [...] been in contact with No / Unsure 07/19/2020 2:11 PM CDT someone who was confirmed or suspected to have Coronavirus / COVID-19? documented as of this encounter Plan of Treatment Not on filedocumented as of this encounter Results Asymptomatic COVID-19 Virus (Coronavirus) by PCR (08/14/2020 8:50 AM CDT) Component Value Ref Test Analysis Performed At Patholo gist Range Method Time Signature COVID-19 Nasopharyngeal 08/14/2020 [facility] Virus PCR to 8:51 AM CDT [facility] Source COVID-19 Test received-See 08/14/2020 INFECTIOUS Virus PCR to reflex to IDDL 1:05 PM CDT [facility] - test SARS CoV2 DIAGNOSTIC Result (COVID-19) Virus LABORATORY, RT-PCR [facility] Specimen (Source) Anatomical Collection Method Collection Time Re ceived Time Location / / Volume Laterality Specimen from 08/14/2020 8:50 08/14/2020 nasopharyngeal AM CDT 8:51 AM CDT structure (specimen) Francisco Peguero MD LAB - MICRO GENERAL ORDERABL ES Performing Organization Address City/State/ZIP Code Phon e Number INFECTIOUS DISEASES [address] [place] [address] DIAGNOSTIC LABORATORY, [facility] [address] [id number] [facility] [phone] documented in this encounter Visit Diagnoses Diagnosis Encounter for screening for other viral diseases documented in this encounter Care Teams Production Editor Relationship Specialty Start Date End Date No Ref-Primary, Physician PCP - General 07/15/20 Savanah Gaming PA-C Assigned PCP 06/24/20 08/25/20 [address] [place] [address] documented as of this encounter
--- OUTSIDE RECORDS SUMMARY | 2021-12-01 11:20 | XMS_ITS | Encounter Summary ---
:1950 Author Organization [facility] Address [facility] [address] Care Team Providers Name Role Phone No Ref-Primary, Physician Primary Care Provider [phone] Savanah Gaming PA-C Unavailable [phone] Reason for Visit Reason Comments UTI Encounter Details Date Type Department Care Team Description 08/09/2020 Office Visit [facility] Earnestine Glaser, Dysuria (Primary Dx); Urgent Care Irma rosenberg MD Nonspecific finding on examination of ur ine; [address] Fatigue, unspecified type; [place], [place] SARA [address] Atrial fibrillation, unspecified type (H ) [address] [place], [place] 814-423-0062452.684.2822 [address] Social History Tobacco Use Types Packs/Day Years Used Date Former Smoker 2 20 04/02/1971 - 0 04/02/1991 Smokeless Tobacco: Never Used Alcohol Use Standard Drinks/Week Comments Yes 0 (1 standard drink = 0.6 oz pure alcoho l) [facility] Alcohol Habits Answer Date Recorded How often [...] been in contact with No / Unsure 08/09/2020 10:45 AM CDT someone who was confirmed or suspected to have Coronavirus / COVID-19? documented as of this encounter Last Filed Vital Signs Vital Sign Reading Time Taken Comments Blood Pressure 114/70 08/09/2020 11:46 AM CDT Pulse 50 08/09/2020 11:46 AM CDT Temperature 36.6 ??C (97.8 ??F) 08/09/2020 11:04 AM CDT Respiratory Rate 22 08/09/2020 11:04 AM CDT Oxygen Saturation 92% 08/09/2020 11:44 AM CDT Inhaled Oxygen Concentration - - Weight 113.2 kg (249 lb 8 oz) 08/09/2020 11:04 AM CDT Height - - Body Mass Index 34.8 07/19/2020 2:22 PM CDT documented in this encounter Progress Notes Earnestine Glaser MD - 08/09/2020 10:45 AM CDT Chief Complaint Patient presents with ??? UTI Medical Decision Making: ASSESMENT AND PLAN Marlon was seen today for uti. Diagnoses and all orders for this visit: Dysuria - *UA reflex to Microscopic and Culture ([place] [facility] (except Antonette Fernando and [facility]) - Urine Microscopic - Urine Culture Aerobic Bacterial; Future - Urine Culture Aerobic Bacterial - cephALEXin (KEFLEX) 500 MG capsule; Take 1 capsule (500 mg) by mouth 2 times daily for 7 days Nonspecific finding on examination of urine - Urine Culture Aerobic Bacterial; Future - Urine Culture Aerobic Bacterial Fatigue, unspecified type - CBC with platelets and differential - Comprehensive metabolic panel (BMP + Alb, Alk Phos, ALT, AST, Total. Bili, TP) Atrial fibrillation, unspecified type (H) - EKG 12-lead complete w/read - Clinics Discussed with pt to follow up in ER I am concerned about the EKG findings Patient refused to go to the ER I did also encourage him to follow-up with cardiology for further evaluation he refused that too And did sign AMA form and decided to stop at the lab for lab draw CBC and also CMP within normal limits Fluids and Rest Discussed with pt that as is feeling tired and fatigued with consider checking few labs. I have reviewed the nursing notes. Differential Diagnosis: UTI: UTI, Dysuria, Pyelonephritis, Kidney Stone, Urethritis and Prostatitis afib , atrial flutter See orders in Epic Pt verbalized and agreed with the plan and is aware of the worsening symptoms for which would need to follow up . Pt was stable during time of discharge from the clinic X-Ray was not done. Review of the result(s) of each unique test - ua showed infection EKG did show rhythm abnormality Time spent on the date of the encounter doing chart review, review of test results, interpretation of tests, patient visit and documentation SUBJECTIVE Marlon Benton is a 70 year old male presenting with a chief complaint of Chief Complaint Patient presents with ??? UTI UTI Onset of symptoms was 3day(s). Course of illness is worsening Severity moderate Current and associated symptoms cloudy coloured urine Treatment and measures tried None Predisposing factors include none Patient denies rigors, flank pain, temperature > 101 degrees F. and vomiting He has been feeling tired and fatigued. Denies any chest pain chest palpitation chest heaviness or shortness of breath symptoms. As per pt He has ongoing h/o Afib but has never been on any medications Discussed with him the risk of the heart rhythm abnormality He is aware of it And refuses any further care No past medical history on file. Current Outpatient Medications Medication Sig Dispense Refill ??? cephALEXin (KEFLEX) 500 MG capsule Take 1 capsule (500 mg) by mouth 2 times daily for 7 days 14 capsule 0 ??? ondansetron (ZOFRAN) 4 MG tablet Take 1 tablet (4 mg) by mouth every 8 hours as needed for nausea 20 tablet 3 Social History Tobacco Use ??? Smoking status: Former Smoker Packs/day: 2.00 Years: 20.00 Pack years: 40.00 Start date: 04/02/1971 Quit date: 04/02/1991 Years since quittin.3 ??? Smokeless tobacco: Never Used Substance Use Topics ??? Alcohol use: Yes Comment: occ No family history on file. ROS: 10 point ROS of systems including Constitutional, Eyes, Respiratory, Gastroenterology,Integumentary,Muscularskeletal, Psychiatric ,neurological were all negative except for pertinent positives noted in my HPI OBJECTIVE: BP 114/70 Pulse 50 Temp 97.8 ??F (36.6 ??C) (Oral) Resp 22 Wt 113.2 kg (249 lb 8 oz) SpO2 92% BMI 34.80 kg/m?? GENERAL APPEARANCE: healthy, alert and no distress EYES: EOMI, PERRL, conjunctiva clear HENT: ear canals and TM's normal. Nose and mouth without ulcers, erythema or lesions NECK: supple, nontender, no lymphadenopathy RESP: lungs clear to auscultation - no rales, rhonchi or wheezes CV irregular rate and rhythm, normal S1 S2, no murmur noted, heart rate fluctuated between 50 -130 ABDOMEN: soft, nontender, no HSM or masses and bowel sounds normal SKIN: no suspicious lesions or rashes PSYCH: mentation appears normal Physical Exam (Note was completed, in part, with Dragon voice Earnestine Glaser MD on 08/09/2020 at 11:43 AM documented in this encounter Plan of Treatment Not on filedocumented as of this encounter Procedures Procedure Name Priority Date/Time Associated Comments Diagnosis CBC WITH PLATELETS & Routine 08/09/2020 12:20 Fatigue, Res ults for this DIFFERENTIAL PM CDT unspecified type procedure a re in the results section. COMPREHENSIVE Routine 08/09/2020 12:20 Fatigue, Results fo r this METABOLIC PANEL PM CDT unspecified type procedur e are in the results section. EKG 12-LEAD COMPLETE Routine 08/09/2020 12:01 Atrial Res ults for this W/READ - CLINICS PM CDT fibrillation, procedure are in unspecified type the results (H) section. URINE MICROSCOPIC Routine 08/09/2020 10:54 Dysuria Result s for this AM CDT procedure are i n the results section. UA MACROSCOPIC WITH Routine 08/09/2020 10:54 Dysuria Resu lts for this REFLEX TO MICROSCOPIC AM CDT proced ure are in AND CULTURE the results section. URINE CULTURE Routine 08/09/2020 10:54 Dysuria Results for this AM CDT Nonspecific finding procedur e are in on examination of the result s urine section. documented in this encounter Results (ABNORMAL) Comprehensive metabolic panel (BMP + Alb, Alk Phos, ALT, AST, Total. Bili, TP) (08/09/2020 12:20 PM CDT) P athologist Signature Sodium 139 133 - 144 08/09/2020 [facility] mmol/L 2:24 PM CDT [facility] Potassium 4.2 3.4 - 5.3 08/09/2020 [facility] mmol/L 2:24 PM [facility] Chloride 108 94 - 109 08/09/2020 [facility] mmol/L 2:24 PM [facility] Carbon Dioxide 22 20 - 32 08/09/2020 [facility] mmol/L 2:26 PM [facility] Anion Gap 9 3 - 14 08/09/2020 [facility] mmol/L 2:26 PM [facility] Glucose 125 (H) 70 - 99 08/09/2020 [facility] mg/dL 2:26 PM [facility] Urea Nitrogen 24 7 - 30 08/09/2020 [facility] mg/dL 2:26 PM [facility] Creatinine 0.87 0.66 - 08/09/2020 [facility] 1.25 mg/dL 2:26 PM [facility] GFR Estimate 87 >60 08/09/2020 [facility] mL/min/{1. 2:26 PM [facility] 73_m2} HOSPITAL Comment: Non GFR Calc Starting 03/19/2018, serum creatinine ba sed estimated GFR (eGFR) will be calculated using the Chronic Kidney Dise [facility] Epidemiology Collaboration (CKD-EPI) equation. GFR Estimate If >90 >60 mL/min/{1.73_m2} 08/09/2020 2: 26 PM [facility] Comment: GFR Calc Starting 03/19/2018, serum creatinine ba sed estimated GFR (eGFR) will be calculated using the Chronic Kidney Dise [facility] Epidemiology Collaboration (CKD-EPI) equation. Calcium 9.5 8.5 - 10.1 08/09/2020 2:26 PM [facility] R IDGES mg/dL [facility] Bilirubin Total 1.8 (H) 0.2 - 1.3 mg/dL 08/09/2020 2:30 PM [facility] Albumin 3.3 (L) 3.4 - 5.0 g/dL 08/09/2020 2:30 PM [facility] Protein Total 7.3 6.8 - 8.8 g/dL 08/09/2020 2:30 PM [facility] Alkaline Phosphatase 90 40 - 150 U/L 08/09/2020 2:30 PM [facility] ALT 22 0 - 70 U/L 08/09/2020 2:30 PM [facility] AST 11 0 - 45 U/L 08/09/2020 2:30 PM [facility] Specimen Anatomical Collection Method Collection Time Receive d Time (Source) Location / / Volume Laterality Blood 08/09/2020 12:20 08/09/2020 PM CDT 12:21 PM CDT Earnestine Glaser MD LAB - BLOOD ORDERABLES Performing Organization Address City/State/ZIP Code Phon e Number M [facility] [address] [place], [place] [address] [facility] [address] [place], [place] [address] [place] [address] CBC with platelets and differential (08/09/2020 12:20 PM CDT) [facility] gist Method Time Signature WBC 10.7 4.0 - 08/09/2020 [facility] 11.0 2:18 PM CDT CLINICS 10e9/L [place] RBC Count 5.53 4.4 - 5.9 08/09/2020 [facility] 10e12/L 2:18 PM CDT [facility] [place] Hemoglobin 16.8 13.3 - 08/09/2020 [facility] 17.7 g/dL 2:18 PM CDT [facility] [place] Hematocrit 50.8 40.0 - 08/09/2020 [facility] 53.0 % 2:18 PM CDT [facility] [place] MCV 92 78 - 100 08/09/2020 [facility] fl 2:18 PM CDT [facility] [place] MCH 30.4 26.5 - 08/09/2020 [facility] 33.0 pg 2:18 PM CDT [facility] [place] MCHC 33.1 31.5 - 08/09/2020 [facility] 36.5 g/dL 2:18 PM CDT [facility] [place] RDW 14.4 10.0 - 08/09/2020 [facility] 15.0 % 2:18 PM CDT [facility] [place] Platelet Count 196 150 - 450 08/09/2020 [facility] 10e9/L 2:18 PM CDT [facility] [place] % Neutrophils 72.2 % 08/09/2020 [facility] 2:18 PM CDT [facility] [place] % Lymphocytes 16.6 % 08/09/2020 [facility] 2:18 PM CDT [facility] [place] % Monocytes 9.7 % 08/09/2020 [facility] 2:18 PM CDT [facility] [place] % Eosinophils 1.3 % 08/09/2020 [facility] 2:18 PM CDT [facility] [place] % Basophils 0.2 % 08/09/2020 [facility] 2:18 PM CDT [facility] [place] Absolute 7.7 1.6 - 8.3 08/09/2020 [facility] Neutrophil 10e9/L 2:18 PM CDT [facility] Absolute 1.8 0.8 - 5.3 08/09/2020 [facility] Lymphocytes 10e9/L 2:18 PM CDT [facility] Absolute 1.0 0.0 - 1.3 08/09/2020 [facility] Monocytes 10e9/L 2:18 PM CDT [facility] Absolute 0.1 0.0 - 0.7 08/09/2020 [facility] Eosinophils 10e9/L 2:18 PM CDT [facility] Absolute 0.0 0.0 - 0.2 08/09/2020 [facility] Basophils 10e9/L 2:18 PM CDT [facility] Diff Method Automated 08/09/2020 [facility] Method 2:18 PM CDT [facility] Specimen Anatomical Collection Method Collection Time Receive d Time (Source) Location / / Volume Laterality Blood 08/09/2020 12:20 08/09/2020 PM CDT 12:21 PM CDT Earnestine Glaser MD LAB - BLOOD ORDERABLES Performing Organization Address City/State/ZIP Code Phon e Number [facility] [id number] [place] [address] EKG 12-lead complete w/read - Clinics (08/09/2020 12:01 PM CDT) Narrative This result has an attachment that is no t available. Earnestine Glaser MD ECG ORDERABLES Urine Culture Aerobic Bacterial (08/09/2020 10:54 AM CDT) Component Value Ref Test Analysis Performed At [facility] Range Method Time Signature Specimen Midstream Urine INFECTIOUS Description DISEASES DIAGNOSTIC LABORATORY, [facility] Culture Micro 50,000 to 100,000 colonies/mL 2020 INFECTIOUS mixed urogenital cristian 10:03 PM DISEASE S Susceptibility testing not routinely done CDT [facility]ST[facility] LABORATORY, [facility] Specimen (Source) Anatomical Collection Method Collection Time Re ceived Time Location / / Volume Laterality Examination of 08/09/2020 10:54 midstream urine AM CDT 11:28 AM CDT specimen (procedure) Earnestine Glaser MD LAB - MICRO GENERAL ORDERABL ES Performing Organization Address City/State/ZIP Code Phon e Number INFECTIOUS DISEASES DIAGNOSTIC [address] [facility] [address] [address] LABORATORY, [facility] (ABNORMAL) Urine Microscopic (08/09/2020 10:54 AM CDT) Patholo gist Method Time Signature WBC Urine >100 (A) OTO5^0 - 08/09/2020 [facility] 5 /HPF 11:15 AM CDT [facility] RBC Urine 2-5 (A) OTO2^O - 08/09/2020 [facility] 2 /HPF 11:15 AM CDT [facility] Squamous Few FEW^Few 08/09/2020 [facility] Epithelial /LPF 11:15 AM CDT CLINICS /LPF Urine [place] Bacteria Urine Moderate (A) NEG^Negat 08/09/2020 [facility] husam /HPF 11:15 AM CDT [facility] Specimen Anatomical Collection Method Collection Time Receive d Time (Source) Location / / Volume Laterality 08/09/2020 10:54 08/09/2020 AM CDT 10:55 AM CDT Earnestine Glaser MD LAB - URINE ORDERABLES Performing Organization Address City/[facility]/ZIP Code Phon e Number [facility] [id number] [place], [place] [phone] (ABNORMAL) *UA reflex to Microscopic and Culture ([place] [facility] [place] [facility] (08/09/2020 10:54 AM CDT) Patholo gist Method Time Signature Color Urine Yellow 08/09/2020 [facility] 11:15 AM CDT [facility] Appearance Clear 08/09/2020 [facility] Urine 11:15 AM CDT [facility] Glucose Urine Negative NEG^Negat 08/09/2020 [facility] husam mg/dL 11:15 AM CDT [facility] Bilirubin Moderate (A) NEG^Negat 08/09/2020 [facility] Urine husam 11:15 AM CDT [facility] Comment: This is an unconfirmed screenin g test result. A positive result may be false. Ketones Urine >=80 (A) NEG^Negative mg/dL 08/09/2020 11:15 [facility] CDT [facility] Specific [place] >1.030 1.003 - 1.035 08/09/2020 11:15 [facility] Urine AM CDT [facility] [place] Blood Urine Large (A) NEG^Negative 08/09/2020 11:15 [facility] CDT [facility] pH Urine 5.5 5.0 - 7.0 pH 08/09/2020 11:15 [facility] CDT [facility] Protein Albumin >=300 (A) NEG^Negative mg/dL 08/09/2020 11:1 5 [facility] Urine CDT [facility] Urobilinogen Urine 1.0 0.2 - 1.0 EU/dL 08/09/2020 11:1 5 [facility] CDT [facility] [place] Nitrite Urine Negative NEG^Negative 08/09/2020 11:15 [facility] AM CDT [facility] Leukocyte Esterase Large (A) NEG^Negative 08/09/2020 11:15 [facility] Urine AM CDT [facility] [place] Source Midstream Urine 08/09/2020 10:55 [facility] Specimen (Source) Anatomical Collection Method Collection Time Re ceived Time Location / / Volume Laterality Examination of 08/09/2020 10:54 midstream urine AM CDT 10:55 AM CDT specimen (procedure) Earnestine Glaser MD LAB - URINE ORDERABLES Performing Organization Address City/State/ZIP Code Phon e Number [facility] [address] [place] [address] documented in this encounter Visit Diagnoses Diagnosis Dysuria - Primary Nonspecific finding on examination of ur ine Other nonspecific finding on examination of urine Fatigue, unspecified type Atrial fibrillation, unspecified type (H ) documented in this encounter Care Teams Ditching Machine Operator Relationship Specialty Start Date End Date No Ref-Primary, Physician PCP - General 07/15/20 Savanah Gaming PA-C Assigned PCP 06/24/20 08/25/20 [id number] [place] [address] documented as of this encounter
--- OUTSIDE RECORDS SUMMARY | 2021-12-01 11:20 | XMS_ITS | Encounter Summary ---
:1950 Author Organization [facility] Address [address] [place] [address] Care Team Providers Name Role Phone No Ref-Primary, Physician Primary Care Provider [phone] Savanah Gaming PA-C Unavailable [phone] Encounter Details Date Type Department Care Team Description 07/15/2020 Travel Social History Tobacco Use Types Packs/Day Years Used Date Never Assessed Sex Assigned at Date Recorded Male 08/29/2020 12:26 PM CDT COVID-19 Exposure Response Date Recorded In the last month, have you been in contact with No / Unsure 07/15/2020 1:45 AM CDT someone who was confirmed or suspected to have Coronavirus / COVID-19? documented as of this encounter Plan of Treatment Not on filedocumented as of this encounter Visit Diagnoses Not on filedocumented in this encounter Care Teams Packing Machine Feeder Relationship Specialty Start Date End Date No Ref-Primary, Physician PCP - General 07/15/20 Savanah Gaming PA-C Assigned PCP 06/24/20 08/25/20 [id number] [place] [address] documented as of this encounter
--- OUTSIDE RECORDS SUMMARY | 2021-12-01 11:20 | XMS_ITS | Encounter Summary ---
:1950 Author Organization [place] Address [facility] [place] [address] Care Team Providers Name Role Phone No Ref-Primary, Physician Primary Care Provider [phone] Savanah Gaming PA-C Unavailable [phone] Reason for Visit Auth/Cert Specialty Diagnoses / Procedures Referred By Contact Refer red To Contact Gastroenterology Diagnoses Hx of colonic polyps Hx of colonic polyps [Z86.010] Rh Endoscopy Procedures HC COLONOSCOPY W/WO BRUSH/WASH COLONOSCOPY [address] [place] [address] Phone: Fax: Referral ID Status Reason Start Date Expiration Date Visits Requ ested Visits Authorized [id number] 1 1 Encounter Details Date Type Department Care Team Description 08/18/[address] [facility] Hallie Rivera , Endoscopy Evy HOOVER [address] [place], [place] GASTROINTESTINAL [id number] [place] [address] [place], [place] [address] (Wo rk) Social History Tobacco Use Types Packs/Day Years [...] Sign Reading Time Taken Comments Blood Pressure 110/90 08/18/2020 2:08 PM CDT Pulse 100 08/18/2020 2:00 PM CDT Temperature 36.8 ??C (98.3 ??F) 08/18/2020 1:10 PM CDT Respiratory Rate 18 08/18/2020 2:08 PM CDT Oxygen Saturation 93% 08/18/2020 2:08 PM CDT Inhaled Oxygen Concentration - - Weight - - Height - - Body Mass Index - - documented in this encounter Discharge Instructions AttachmentsThe following attachments cannot be sent through Care Everywhere. Diverticulosis and Diverticulitis, Understanding (Bahamian)Diet, High-Fiber (Bahamian)Colon and Rectal Polyps, Understanding (Bahamian)documented in this encounter Medications at Time of Discharge Medication Sig Dispensed Refills Start Date End Date ondansetron (ZOFRAN) 4 MG Take 1 tablet (4 mg) 20 tablet 3 07/19/2020 tabletIndications: Nausea by mouth every 8 hours as needed for nausea documented as of this encounter H&P Notes Hallie Rivera MD - 08/18/2020 12:17 PM CDT Pre-Endoscopy History and Physical Marlon Benton Date of : 1950 Age: [age] year old Date of Procedure: 08/18/2020 Primary care provider: No Ref-Primary, Physician Type of Endoscopy: Colonoscopy with possible biopsy, possible polypectomy Reason for Procedure: polyps Type of Anesthesia Anticipated: Conscious Sedation HPI: Marlon is a 70 year old male who will be undergoing the above procedure. A history and physical has been performed. The patient's medications and allergies have been reviewed. The risks and benefits of the procedure and the sedation options and risks were discussed with thepatient. All questions were answered and informed consent was obtained. He denies a personal or family history of anesthesia complications or bleeding disorders. Patient Active Problem List Diagnosis ??? Diverticulosis of large intestine without hemorrhage ??? Bladder diverticulitis ??? Morbid obesity (H) ??? History of colonic polyps ??? Rectal bleeding ??? Urinary tract infection Past Medical History: Diagnosis Date ??? Urinary tract infection Past Surgical History: Procedure Laterality Date ??? COLONOSCOPY Social History Tobacco Use ??? Smoking status: Former Smoker Packs/day: 2.00 Years: 20.00 Pack years: 40.00 Types: Cigarettes Start date: 04/02/1971 Quit date: 04/02/1991 Years since quittin.4 ??? Smokeless tobacco: Never Used Substance Use Topics ??? Alcohol use: Yes Comment: occ Family History Problem Relation Age of Onset ??? Colon Cancer No family hx of Prior to Admission medications Medication Sig Start Date End Date Taking? Authorizing Provider ondansetron (ZOFRAN) 4 MG tablet Take 1 tablet (4 mg) by mouth every 8 hours as needed for nausea 07/19/20 Savanah Gaming PA-C No Known Allergies REVIEW OF SYSTEMS: 5 point ROS negative except as noted above in HPI, including Gen., Resp., CV, GI & system review. PHYSICAL EXAM: There were no vitals taken for this visit. Estimated body mass index is 34.8 kg/m?? as calculated from the following: Height as of 07/19/20: 1.803 m (5' 11). Weight as of 08/09/20: 113.2 kg (249 lb 8 oz). GENERAL APPEARANCE: alert, and oriented MENTAL STATUS: alert AIRWAY EXAM: Mallampatti Class I (visualization of the soft palate, fauces, uvula, anterior and posterior pillars) RESP: lungs clear to auscultation - no rales, rhonchi or wheezes CV: regular rates and rhythm DIAGNOSTICS: Not indicated IMPRESSION ASA Class 2 - Mild systemic disease PLAN: Plan for Colonoscopy with possible biopsy, possible polypectomy. We discussed the risks, benefits and alternatives and the patient wished to proceed. The above has been forwarded to the consulting provider. Signed Electronically by: Hallie Rivera MD August 18, 2020 documented in this encounter Miscellaneous Notes Result Encounter Note - Hallie Rivera MD - 08/18/2020 2:13 PM CDT Pt informed of results. Redo in 5 yr. documented in this encounter Plan of Treatment Not on filedocumented as of this encounter Procedures Procedure Name Priority Date/Time Associated Comments Diagnosis SURGICAL PATHOLOGY Routine 08/18/2020 1:23 PM Res ults for this EXAM CDT procedure are i n the results section. COLONOSCOPY Routine 08/18/2020 1:07 PM Results f or this CDT procedure are i n the results section. COLONOSCOPY, 08/18/2020 1:06 PM Hx of colonic FLEXIBLE, WITH LESION CDT polyps REMOVAL USING SNARE Special Needs Ps 07/29 ah(FV) documented in this encounter Results Surgical pathology exam (08/18/2020 1:23 PM CDT) Component Value Ref Test Analysis Performed At [facility] Range Method Time Signature Copath Report Patient Name: MARLON BENTON MR#: [id number] Specimen #: [id number] Collected: 08/18/2020 Received: 08/18/2020 Reported: 08/19/2020 09:46 Ordering Phy(s): HALLIE RIVERA For improved result formatting, select 'View Enhanced Report Format' under Linked Documents section. SPECIMEN(S): A: Colon polyps x 2, transverse B: Colon polyp, descending FINAL DIAGNOSIS: A. ??Colon, transverse, polypectomies (2): - Sessile serrated adenoma (1); negative for dysplasia and m alignancy. - Fragments of tubular adenoma (1); negative for high-grade dysplasia and malignancy. B. ??Colon, descending, polypectomy: - Tubular adenoma. - Negative for high-grade dysplasia and malignancy. Electronically signed out by: Enoc Morrow M.D. CLINICAL HISTORY: History of colonic polyps. GROSS: A: ??The specimen is received in formalin labeled with the p atient's name, identifying information and designated transverse colon polyps x2. ??It consists of mu ltiple garcia friable polypoid tissue fragments, ranging from 0.1 to 0.6 cm. ??The largest fragment is inked black and bisected. ??The specimen is filtered and submitted entirely in one block. B: ??The specimen is received in formalin labeled with the p atient's name, identifying information and designated descending colon polyp. ??It consists of a 0.8 cm polyp. ?? Bisected and submitted entirely in one block. (Dictated by: ESTUARDO Wood 08/18/2020 03:53 PM) MICROSCOPIC: A and B. ??Microscopic examination was performed. The technical component of this testing was completed at the [facility], with the professional compo nent performed at the [facility], [address] [place] [address] ??[phone] ([phone]) CPT Codes: A: 94575-WC9 B: 24786-XW8 COLLECTION SITE: Client: [facility] Location: [facility] (R) Specimen (Source) Anatomical Collection Method Collection Time Re ceived Time Location / / Volume Laterality Polyp LARGE INTESTINE 08/18/2020 1:23 PM PART / Unknown CDT Polyp LARGE INTESTINE 08/18/2020 1:32 PM (morphologic PART / Unknown CDT abnormality) Hallie OROZCO - PATRIC Performing Organization Address City/State/ZIP Code Phon e Number COPATH COLONOSCOPY (08/18/2020 1:07 PM CDT) [facility] Method Time Signature COLONOSCOPY [facility] RAD IOLOGY RESULTS Patient Name: Marlon Benton ?Procedure Date: 08/18 1:07 PM ? Accou nt Number: [id number] Date of : 1950 ?Admit Type: Out patient Age: 70 ? Gender: Male Attending MD: Hallie gallardo MD ?? Total Sedation Time: 17_minutes continuous bedside 1:1 Instrument Name: 222 - Adult Colonoscope Procedure: ?Colonoscopy Indications: ?High ri sk colon cancer surveillance: Personal ?history of colonic po lyps Providers: ?Hallie Rivera MD (Doc tor) Referring MD: ? Medicines: ?Midazolam 2 mg IV, Fentanyl 100 micrograms IV Complications: ?No immediate complications. Procedure: ?Pre-Anesthesia Assessment: ?- Prior to the procedure, a History and Physical ?was performed, and patient medications and ?allergies were reviewed. The patient is competent. ?The risks and benefits of the procedure and the ?sedation options and risks were discussed with the ?patient. All questions were answered and informed ?consent was obtained. Patient identification and ?proposed procedure were verified by the physician ?in the pre-procedure area. Mental Status ?E xamination: alert and oriented. Airway ?Examination: normal oropharyngeal airway and neck ?mobility. Respiratory Examination: clear to ?auscultation. CV Examination: normal. Prophylactic ?Antibiotics: The patient does not require ?prophylactic antibiotics. Prior Anticoagulants: The ?patient has taken no previous anticoagulant or ?antiplatelet agents. ASA Grade Assessment: II - A ?patient with mild systemic disease. After reviewing ?the risks and benefits, the patient was deemed in ?satisfactory condition to undergo the procedure. ?The anesthesia plan was to use moderate sedation / ?analgesia (conscious sedation). Immediately prior ?to administration of medications, the patient was ?re-assessed for adequacy to receive sedatives. The ?heart rate, respiratory rate, oxygen saturations, ?blood pressure, adequacy of pulmonary ventilation, ?and response to care were monitored throughout the ?procedure. The physical status of the patient was ?re-assessed after the procedure. ?After obtaining informed consent, the colonoscope ?was passed under direct vision. Throughout the ?procedure, the patient's blood pressure, pulse, and ?oxygen saturations were monitored continuously. The ?Exhibition A Adult Colonoscope, Model # [id number], ?[place]ora # 222, SN # [id number] was introduced through ?the anus and advanced to the cecum, identified by ?appendiceal orifice and ileocecal valve. The ?colonoscopy was performed without difficulty. The ?patient tolerated the procedure well. The quality ?of the bowel preparat ion was good. ? Findings: ? The perianal and digital rectal examinations were nor mal. ? Four multi-lobulated polyps were found in the mid descending colon and ? transverse colon. The polyps were 5 to 7 mm in size. These polyps were ? removed with a hot snare. Resection and retrieval wer e complete. ? Verification of patient identification for the specim en was done. ? Estimated blood loss was minimal. ? Multiple small and large-mouthed divertic carmen were found in the sigmoid ? colon and descending colon. ? The exam was otherwise without abnormality on d irect and retroflexion ? views. ? Impression: ? - Four 5 to 7 mm polyps in the mid descending colon ?and in the transverse colon, removed with a hot ?snare. Resected and r etrieved. ?- Diverticulosis in the sigmoid colon and in the ?descending colon. ?- The examination was otherwise normal on direct ?and retroflexion view s. Recommendation: ? - Await pathology results. ?- No aspirin, ibuprofen, naproxen, or other ?non-steroidal anti-inflammatory drugs for 5 days ?after polyp removal. ?- Repeat colonoscopy date to be determined after ?pending pathology results are reviewed for ?surveillance based on pathology results. ? Procedure Code(s): ? --- Professional --- ? 87418, Colonoscopy, flexible; with removal of tumor (s), polyp(s), or ? other lesion(s) by snare technique Diagnosis Code(s): ? --- Professional --- ? K63.5, Polyp of colon CPT copyright 2019 [employer]. All rights reserved. The codes documented in this report are prelimin tarah and upon payroll examiner review may be revised to meet current compliance requirements. Electronically signed by Hallie Rivera MD Hallie Rivera MD 08/18/2020 1:41:27 PM I was physically present for the entire viewing portion of t he exam. Hallie Rivera MD Number of Addenda: 0 Note Initiated On: 08/18/2020 1:07 PM MRN: ?[id number] Procedure Date: ? 08/18/2020 1:07:30 PM Scope Withdrawal Time: 0 hours 11 minutes 5 seconds Total Procedure Duration: 0 hours 14 minutes 49 seconds Estimated Blood Loss: ? Scope In: 1:18:30 PM Scope Out: 1:33:19 PM Specimen (Source) Anatomical Collection Method Collection Time Re ceived Time Location / / Volume Laterality 08/18/2020 1:07 PM CDT Hallie Rivera MD PROCEDURES Performing Organization Address City/State/ZIP Code Phon e Number RADIOLOGY RESULTS documented in this encounter Visit Diagnoses Diagnosis Urinary tract infection Urinary tract infection, site not specif ied documented in this encounter Administered Medications Inactive Administered Medications - up to 3 most recent administrations Medication Order MAR Action Action Date Dose Rate Site fentaNYL (PF) (SUBLIMAZE) Given 08/18/2020 1:30 PM CDT 50 mcg injection Intravenous, PRN, Administer over 3-5 Minutes, Starting on 08/18/20 at 1316 Given 08/18/2020 1:16 PM CDT 50 mcg flumazenil (ROMAZICON) injection 0.2 mg 0.2 mg, Intravenous, EVERY 1 MIN PRN, benzodiazepine r eversal, over sedation, Administer over 1 Minutes, Starting on W ed 08/18/20 at 1350, For 12 hours, Give over 15 seconds. If inadequate response after 45 seconds, may repeat up to a MAX total dose of 1 mg. Continue monitoring until discharge criteria are met for a minimum of 2 hours Irritant. For ordered IV doses 0 .1-1 mg, give IV Push undiluted. Administer each 0.2mg over 15 seconds. Use with caution in patien ts on benzodiazepine therapy., Post-procedure lidocaine (LMX4) kit Topical, EVERY 1 HOUR PRN, pain, with VAD insertion, S tarting on 08/18/20 at 1210, Apply at least 30 minutes prior to VAD insertion in divided doses as needed for size of site for insertion. MAX Dose: 2.5 g (?? of 5 g tube) Do NOT give if patient has a history of allergy to any local anesthetic or any jessy product. Do NOT use both lidocaine intradermal/subcu taneous injection and the lidocaine cream on the same site., Pre-procedure lidocaine 1 % 0.1-1 mL 0.1-1 mL, Other, EVERY 1 HOUR PRN, mild pain with VAD insertion, Starting on 08/18/20 at 1210, MAX dose 1 mL subcutane ous OR intradermal along the side of the vein in divided doses as needed for VAD insertion. Do NOT give if patient has a history of allergy to any local anesthet ic or any jessy product. Do NOT use both lidocaine intradermal/subcutaneous injec tion and the lidocaine cream on the same site., Pre-procedure May continue current IV fluid if patient has IV fluids infusing until discharge. CONTINUOUS PRN, Starting on Sun08/18/20 at 1350, Until Sun08/18/20 at 1613, Post-procedure midazolam (VERSED) injection Given 08/18/2020 1:30 PM CDT 1 mg Intravenous, Administer over 2 Minutes, PRN, Starting on Sun08/18/20 at 1316 Given 08/18/2020 1:16 PM CDT 1 mg naloxone (NARCAN) injection 0.2 mg 0.2 mg, Intravenous, EVERY 2 MIN PRN, op ioid reversal, Starting on Sun08/18/20 at 1350, Administer intravenous route when available and notify provider when administered. For unintended sedation or respiratory depression if all of the below criteria are met: ~ respiratory rate LES S than or EQUAL to 8. ~SaO2 less than 92% and or/end-tidal CO2 is greater than 50. ~ the patient is receiving an opioid, has unintended sedations assessed as RASS (-3), and is cur rently not on mechanical ventilation. RASS scale moderate (-3) is movement or eye opening to voice but no eye contact. Patient Monitoring Once the patient has demonstrated a response to the naloxone, continue to monitor respiratory rate, depth, oxygen saturation and end-tidal CO2 (if available) every 15 mi nutes x 2, then every 30 minutes x 2, then every 1 hour x 1 after each naloxone dose. Consider tr ansfer to ICU if patient respiratory parameters have not improved after 4 nalox one doses. For ordered IV doses 0.1-2mg give IVP. Give each 0.4mg over 15 seconds in emergency situations. For non-emergent situations further dilu te in 9mL of NS to facilitate titration of response., Post-procedure naloxone (NARCAN) injection 0.2 mg 0.2 mg, Intramuscular, EVERY 2 MIN PRN, opioid reversal, Starting on Sun08/18/20 at 1350, Administer intramuscular if an int ravenous route is not available and notify provider when administered. For unintend ed sedation or respiratory depression if all of the below criteria are met: ~ respiratory rate LESS than or EQUAL to 8. ~SaO2 less than 92% and or/end-tidal CO2 is greater th an 50. ~ the patient is receiving an opioid, has unintended sedations assessed as RASS (-3), and is currently not on mechanical ventilation. RASS scale moderate (-3) is movement or eye opening to voice but no eye contact. Patient Monitoring Once the patient has demonstrated a response to the naloxone, continue to m onitor respiratory rate, depth, oxygen saturation and end-tidal CO2 (if availab le) every 15 minutes x 2, then every 30 minutes x 2, then every 1 hour x 1 after each naloxone dose. Consider transfer to ICU if patient respiratory parameters have not improved after 4 naloxone doses. For ordered IV doses 0.1-2mg give IVP. Give each 0.4mg over 15 seconds in emergency situations. For non -emergent situations further dilute in 9mL of NS to facilitate titration of response., Post-proce dure naloxone (NARCAN) injection 0.4 mg 0.4 mg, Intravenous, EVERY 2 MIN PRN, op ioid reversal, Starting on Sun08/18/20 at 1350, Administer intravenous route when available and notify provider when administered. For unintended sedation or respiratory depression if all of the below criteria are met: ~ respiratory rate LES S than or EQUAL to 8. ~ SaO2 less than 92% and or/end-tidal CO2 is greater than 50. ~ the patient is receiving an opioid, has unintended sedation assessed as RASS (-4 ) or (-5) and patient is currently not on mechanical ventilation. RASS scale (-4) is deep sedation with no response to voice but movement or eye opening to physical stimulation. R ASS scale (-5) is unarousable. Patient Monitoring Once the patient has demonstrated a response to the naloxone, continue to monitor respiratory rate, depth, oxygen saturation and end-tidal CO2 (if available) every 15 mi nutes x 2, then every 30 minutes x 2, then every 1 hour x 1 after each naloxone dose. Consider tr ansfer to ICU if patient respiratory parameters have not improved after 4 nalox one doses. For ordered IV doses 0.1-2mg give IVP. Give each 0.4mg over 15 seconds in emergency situations. For non-emergent situations further dilu te in 9mL of NS to facilitate titration of response., Post-procedure naloxone (NARCAN) injection 0.4 mg 0.4 mg, Intramuscular, EVERY 2 MIN PRN, opioid reversal, Starting on Sun08/18/20 at 1350, Administer intramuscular if an int ravenous route is not available and notify provider when administered. For unintend ed sedation or respiratory depression if all of the below criteria are met: ~ res piratory rate LESS than or EQUAL to 8. ~ SaO2 less than 92% and or/end-tidal CO2 is greater joe n 50. ~ the patient is receiving an opioid, has unintended sedation assessed as RASS (-4) or (-5) and patient is currently not on mechanical ventilation. RA SS scale (-4) is deep sedation with no response to voice but movement or eye opening to physical stimulation. RASS scale (-5) is unarousa ble. Patient Monitoring Once the patient has demonstrated a response to the nalox one, continue to monitor respiratory rate, depth, oxygen saturation and end-tidal CO2 (if availab le) every 15 minutes x 2, then every 30 minutes x 2, then every 1 hour x 1 after each naloxone dose. Consider transfer to ICU if patient respiratory parameters have not improved after 4 naloxone doses. For ordered IV doses 0.1-2mg give IVP. Give each 0.4mg over 15 seconds in emergency situations. For non -emergent situations further dilute in 9mL of NS to facilitate titration of response., Post-proce dure ondansetron (ZOFRAN) injection 4 mg 4 mg, Intravenous, ONCE PRN, nausea, vomiting, Adminis ter over 2-5 Minutes, Starting on Sun08/18/20 at 1210, For 1 d ose, Give in ENDO pre procedure prep area. Irritant. For ordered IV doses 0.1-4 mg, give IV Push undiluted over 2-5 minutes., Pre-procedure ondansetron (ZOFRAN) injection 4 mg 4 mg, Intravenous, EVERY 6 HOURS PRN, nausea, vomiting , Administer over 2-5 Minutes, Starting on Sun08/18/20 at 1350, This is Step 1 of nausea and vomiting management. If nausea not resolved in 15 minutes, go t o Step 2 prochlorperazine (COMPAZINE). Irritant. For ordered IV do ses 0.1-4 mg, give IV Push undiluted over 2-5 minutes., Post-procedure ondansetron (ZOFRAN-ODT) ODT tab 4 mg 4 mg, Oral, EVERY 6 HOURS PRN, nausea, v omiting, Starting on Sun08/18/20 at 1350, This is Step 1 of nausea and vomiting management. If n ausea not resolved in 15 minutes, go to Step 2 prochlorperazine (COMPAZINE). Do not push through foil backing. Peel back foil and gently remove. Place on to ngue immediately. Administration with liquid unnecessary W ith dry hands, peel back foil backing and gently remove tablet. Do not push oral d isintegrating tablet through foil backing. Administer immediately on tongue and oral disintegrati ng tablet dissolves in seconds, then swallow with saliva. Liquid not required ., Post-procedure prochlorperazine (COMPAZINE) injection 5 mg 5 mg, Intravenous, EVERY 6 HOURS PRN, nausea, vomiting , Administer over 1-2 Minutes, Starting on Sun08/18/20 at 1350, This is Step 2 of nausea and vomiting management. If nausea not resolved in 15 -30 minutes, Notify provider. For ordered IV doses 0.1-10 mg, give IV push undiluted, each 5 mg over 1 minute., Post-procedure prochlorperazine (COMPAZINE) tablet 5 mg 5 mg, Oral, EVERY 6 HOURS PRN, nausea, v omiting, Starting on Sun08/18/20 at 1350, This is Step 2 of nausea and vomiting ma nagement. If nausea not resolved in 15-30 minutes, Notify provider., Post-procedure sodium chloride (PF) 0.9% PF flush 3 mL 3 mL, Intracatheter, EVERY 8 HOURS, First dose on Sun08/18/20 at 1230, to lock peripheral IV dormant line, Pre-procedure sodium chloride (PF) 0.9% PF flush 3 mL 3 mL, Intracatheter, EVERY 1 MIN PRN, li ne flush, other, to ensure patency or to lock dormant line, Starting on Sun08/18/20 at 1210, Pr e-procedure sodium chloride (PF) 0.9% PF flush 3 mL 3 mL, Intravenous, EVERY 1 MIN PRN, line flush, after medication administration, Starting on Sun08/18/20 at 1210, For peripheral IV flu sh post IV meds, Pre-procedure sodium chloride (PF) 0.9% PF flush 3 mL 3 mL, Intravenous, EVERY 1 MIN PRN, line flush, after medication administration. For peripheral IV flush post IV meds, Starting on Sun08/18/20 at 1350, Post-procedure documented in this encounter Active and Recently Administered Medications Times are shown in CDT. Scheduled Medication Order 08/16/2020 08/17/2020 08/18/2020 0.9% sodium chloride BOLUS 1230 (Canceled Entry - Provider: Orders Generic Provider - Comment: Automatically canceled at discontinue of medication order) Intravenous, 500 mL, ONCE, at 500 mL/hr, Administer over 1 Hours, Sun08/18/20 at 1230, For 1 dose, ~ For hypotension hypotensive (Systolic Blood Pressure less than 100 mmHg) prior to the procedure. Imme diately recheck Blood Pressure and if Sy stolic Blood Pressure still below 100 mmHg, give IV bolus. ~ For nausea/vomiting, give IV bolus. Notify Provider if IV bolus given., Pre-procedure sodium chloride (PF) 0.9% PF flush 3 mL 1230 (Canceled Entry - Provider: Orders Generic Provider - Comment: Automatically canceled at discontinue of medication order) 3 mL, Intracatheter, EVERY 8 HOURS, Firs t dose on Sun08/18/20 at 1230, to lock peripheral IV dormant line, Pre-procedure PRN Medication Order 08/16/2020 08/17/2020 08/18/2020 fentaNYL (PF) (SUBLIMAZE) injection (COMPLETED) 1316 (Given - Provider: Gloria Gallegos RN - Comment: sonia)1330 (Given - Provider: Gloria Gallegos RN - Comment: sonia) Intravenous, PRN, Administer over 3-5 Minutes, Starting 08/18 at 1316 flumazenil (ROMAZICON) injection 0.2 mg 0.2 mg, Intravenous, EVERY 1 MIN PRN, be nzodiazepine reversal, over sedation, Administer over 1 Minutes, Starting Sun08/18/20 at 1350, For 12 hours, Give over 15 seconds. If inadequate response after 45 seconds, may repeat up to a MAX total d ose of 1 mg. Continue monitoring until discharge criteria are met for a minimum of 2 hours Irritant. For ordered IV doses 0.1-1 mg, give IV Push undiluted. Admini ster each 0.2mg over 15 seconds. Use wit h caution in patients on benzodiazepine therapy., Post-procedure lidocaine (LMX4) kit Topical, EVERY 1 HOUR PRN, pain, with VA D insertion, Starting Sun08/18/20 at 1210, Apply at least 30 minutes prior to VAD insertion in divided doses as needed for size of site for insertion. MAX Dose: 2 .5 g (?? of 5 g tube) Do NOT give if pat ient has a history of allergy to any local anesthetic or any jessy product. Do NOT use both lidocaine intradermal/subcutaneous injection and the lidocaine cream on the same site., Pre-procedure lidocaine 1 % 0.1-1 mL 0.1-1 mL, Other, EVERY 1 HOUR PRN, mild pain with VAD insertion, Starting Sun08/18/20 at 1210, MAX dose 1 mL subcutaneous OR intradermal along the side of the vein in divided doses as needed for VAD ins ertion. Do NOT give if patient has a his tory of allergy to any local anesthetic or any jessy product. Do NOT use both lidocaine intradermal/subcutaneous injection and the lidocaine cream on the same site., Pre-procedure May continue current IV fluid if patient has IV fluids infusing until discharge. CONTINUOUS PRN, Starting Sun08/18/20 at 1350, Until Sun08/18/20 at 1613, Post-procedure midazolam (VERSED) injection (COMPLETED) 1316 (Given - Provider: Gloria Gallegos RN - Comment: sonia)1330 (Given - Provider: Gloria Gallegos RN - Comment: sonia) Intravenous, Administer over 2 Minutes, PRN, Starting Sun 1 at 1316 naloxone (NARCAN) injection 0.2 mg 0.2 mg, Intravenous, EVERY 2 MIN PRN, op ioid reversal, Starting Sun08/18/20 at 1350, Administer intravenous route when available and notify provider when administered. For unintended sedation or respira tory depression if all of the below crit eria are met: ~ respiratory rate LESS than or EQUAL to 8. ~SaO2 less than 92% and or/end-tidal CO2 is greater than 50. ~ the patient is receiving an opioid, has u nintended sedations assessed as RASS (-3 ), and is currently not on mechanical ventilation. RASS scale moderate (-3) is movement or eye opening to voice but no eye contact. Patient Monitoring Once the pa tient has demonstrated a response to the naloxone, continue to monitor respiratory rate, depth, oxygen saturation and end-tidal CO2 (if available) every 15 minutes x 2, then every 30 minutes x 2, then e very 1 hour x 1 after each naloxone dose . Consider transfer to ICU if patient respiratory parameters have not improved after 4 naloxone doses. For ordered IV doses 0.1-2mg give IVP. Give each 0.4mg over 15 seconds in emergency situations. For non-emergent situations further dilute in 9mL of NS to facilitate titration of response., Post-procedure naloxone (NARCAN) injection 0.2 mg 0.2 mg, Intramuscular, EVERY 2 MIN PRN, opioid reversal, Starting Sun08/18/20 at 1350, Administer intramuscular if an intravenous route is not available and notify provider when administered. For uninte nded sedation or respiratory depression if all of the below criteria are met: ~ respiratory rate LESS than or EQUAL to 8. ~SaO2 less than 92% and or/end-tidal CO2 is greater than 50. ~ the patient is re ceiving an opioid, has unintended sedati ons assessed as RASS (-3), and is currently not on mechanical ventilation. RASS scale moderate (-3) is movement or eye opening to voice but no eye contact. Patien t Monitoring Once the patient has demons trated a response to the naloxone, continue to monitor respiratory rate, depth, oxygen saturation and end-tidal CO2 (if available) every 15 minutes x 2, then ever y 30 minutes x 2, then every 1 hour x 1 after each naloxone dose. Consider transfer to ICU if patient respiratory parameters have not improved after 4 naloxone doses. For ordered IV doses 0.1-2mg give I [employer]. Give each 0.4mg over 15 seconds in e mergency situations. For non-emergent situations further dilute in 9mL of NS to facilitate titration of response., Post-procedure naloxone (NARCAN) injection 0.4 mg 0.4 mg, Intravenous, EVERY 2 MIN PRN, op ioid reversal, Starting Sun08/18/20 at 1350, Administer intravenous route when available and notify provider when administered. For unintended sedation or respira tory depression if all of the below crit eria are met: ~ respiratory rate LESS than or EQUAL to 8. ~ SaO2 less than 92% and or/end-tidal CO2 is greater than 50. ~ the patient is receiving an opioid, has unintended sedation assessed as RASS (-4 ) or (-5) and patient is currently not on mechanical ventilation. RASS scale (-4) is deep sedation with no response to voice but movement or eye opening to physic al stimulation. RASS scale (-5) is unaro usable. Patient Monitoring Once the patient has demonstrated a response to the naloxone, continue to monitor respiratory rate, depth, oxygen saturation and end-ti bernice CO2 (if available) every 15 minutes x 2, then every 30 minutes x 2, then every 1 hour x 1 after each naloxone dose. Consider transfer to ICU if patient respiratory parameters have not improved after 4 naloxone doses. For ordered IV doses 0.1-2mg give IVP. Give each 0.4mg over 15 seconds in emergency situations. For non-emergent situations further dilute in 9mL of NS to facilitate titration of response., Post-procedure naloxone (NARCAN) injection 0.4 mg 0.4 mg, Intramuscular, EVERY 2 MIN PRN, opioid reversal, Starting Sun08/18/20 at 1350, Administer intramuscular if an intravenous route is not available and notify provider when administered. For uninte nded sedation or respiratory depression if all of the below criteria are met: ~ respiratory rate LESS than or EQUAL to 8. ~ SaO2 less than 92% and or/end-tidal CO2 is greater than 50. ~ the patient is r eceiving an opioid, has unintended sedat ion assessed as RASS (-4) or (-5) and patient is currently not on mechanical ventilation. RASS scale (-4) is deep sedation with no response to voice but movement or eye opening to physical stimulation. RASS scale (-5) is unarousable. Patient Monitoring Once the patient has demonstrated a response to the naloxone, continue to monitor respiratory rate, depth, oxyg en saturation and end-tidal CO2 (if avai lable) every 15 minutes x 2, then every 30 minutes x 2, then every 1 hour x 1 after each naloxone dose. Consider transfer to ICU if patient respiratory parameters have not improved after 4 naloxone dose s. For ordered IV doses 0.1-2mg give IVP. Give each 0.4mg over 15 seconds in emergency situations. For non-emergent situations further dilute in 9mL of NS to facilitate titration of response., Post-procedure ondansetron (ZOFRAN) injection 4 mg 4 mg, Intravenous, ONCE PRN, nausea, vom iting, Administer over 2-5 Minutes, Starting Sun08/18/20 at 1210, For 1 dose, Give in ENDO pre procedure prep area. Irritant. For ordered IV doses 0.1-4 mg, give IV Push undiluted over 2-5 minutes., Pre-procedure ondansetron (ZOFRAN) injection 4 mg(Linked Group 1) 4 mg, Intravenous, EVERY 6 HOURS PRN, na usea, vomiting, Administer over 2-5 Minutes, Starting Sun08/18/20 at 1350, This is Step 1 of nausea and vomiting management. If nausea not resolved in 15 minutes, go to Step 2 prochlorperazine (COMPAZIN E). Irritant. For ordered IV doses 0.1-4 mg, give IV Push undiluted over 2-5 minutes., Post-procedure ondansetron (ZOFRAN-ODT) ODT tab 4 mg(Linked Group 1) 4 mg, Oral, EVERY 6 HOURS PRN, nausea, v omiting, Starting Sun08/18/20 at 1350, This is Step 1 of nausea and vomiting management. If nausea not resolved in 15 minutes, go to Step 2 prochlorperazine (COMP AZINE). Do not push through foil backing . Peel back foil and gently remove. Place on tongue immediately. Administration with liquid unnecessary With dry hands, peel back foil backing and gently remove t ablet. Do not push oral disintegrating t ablet through foil backing. Administer immediately on tongue and oral disintegrating tablet dissolves in seconds, then swallow with saliva. Liquid not required., Post-procedure prochlorperazine (COMPAZINE) injection 5 mg(Linked Group 2) 5 mg, Intravenous, EVERY 6 HOURS PRN, na usea, vomiting, Administer over 1-2 Minutes, Starting Sun08/18/20 at 1350, This is Step 2 of nausea and vomiting management. If nausea not resolved in 15-30 minut es, Notify provider. For ordered IV dose s 0.1-10 mg, give IV push undiluted, each 5 mg over 1 minute., Post-procedure prochlorperazine (COMPAZINE) tablet 5 mg(Linked Group 2) 5 mg, Oral, EVERY 6 HOURS PRN, nausea, v omiting, Starting Sun08/18/20 at 1350, This is Step 2 of nausea and vomiting management. If nausea not resolved in 15- 30 minutes, Notify provider., Post-procedure sodium chloride (PF) 0.9% PF flush 3 mL 3 mL, Intracatheter, EVERY 1 MIN PRN, li ne flush, other, to ensure patency or to lock dormant line, Starting Sun08/18/20 at 1210, Pre-procedure sodium chloride (PF) 0.9% PF flush 3 mL 3 mL, Intravenous, EVERY 1 MIN PRN, line flush, after medication administration, Starting Sun08/18/20 at 1210, For peripheral IV flush post IV meds, Pre-procedure sodium chloride (PF) 0.9% PF flush 3 mL 3 mL, Intravenous, EVERY 1 MIN PRN, line flush, after medication administration. For peripheral IV flush post IV meds, Starting Sun08/18/20 at 1350, Post-procedure Linked Groups Order Group 1: ondansetron (ZOFRAN-ODT) ODT tab 4 mgJump to med 4 mg, Oral, EVERY 6 HOURS PRN, nausea, v omiting, Starting Sun08/18/20 at 1350
This is Step 1 of nausea and vomiting management. If nausea not resolved in 15 minutes, go to St ep 2 prochlorperazine (COMPAZINE). Do no t push through foil backing. Peel back foil and gently remove. Place on tongue immediately. Administration with liquid unnecessary With dry hands, peel b ack foil backing and gently remove table t. Do not push oral disintegrating tablet through foil backing. Administer immediately on tongue and oral disintegrating tablet dissolves in seconds, then swallow with saliva. Liquid not required.
Po st-procedure Or ondansetron (ZOFRAN) injection 4 mgJump to med 4 mg, Intravenous, EVERY 6 HOURS PRN, na usea, vomiting, Administer over 2-5 Minutes, Starting Sun08/18/20 at 1350
This is Step 1 of nausea and vomiting management. If nausea not resolved in 15 minutes, go to Step 2 prochlorperazine (COMPAZINE). Irritant. For ordered IV doses 0.1-4 mg, give IV Push undiluted over 2-5 minutes.
Post-procedure Group 2: prochlorperazine (COMPAZINE) injection 5 mgJump to med 5 mg, Intravenous, EVERY 6 HOURS PRN, na usea, vomiting, Administer over 1-2 Minutes, Starting Sun08/18/20 at 1350
This is Step 2 of nausea and vomiting management. If nausea not resol ernesto in 15-30 minutes, Notify provider.&n bsp;For ordered IV doses 0.1-10 mg, give IV push undiluted, each 5 mg over 1 minute.
Post-procedure Or prochlorperazine (COMPAZINE) tablet 5 mgJump to med 5 mg, Oral, EVERY 6 HOURS PRN, nausea, v omiting, Starting 08/18/20 at 1350
This is Step 2 of nausea and vomiting management. If nausea not resolved in 15-30 minutes, Notify provider.
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
--- OUTSIDE RECORDS SUMMARY | 2021-12-01 11:20 | XMS_ITS | Encounter Summary ---
:1950 Author Organization [place] Address [facility] [place] [address] Care Team Providers Name Role Phone No Ref-Primary, Physician Primary Care Provider [phone] Savanah Gaming PA-C Unavailable [phone] Encounter Details Date Type Department Care Team Description 08/14/2020 Hospital Encounter [facility] Francisco Pegureo for [facility] MD Odalys screening for other [address] [place] viral diseases [place], [place] GASTROINTESTINA [id number] L [phone] [place] [id number] Social History Tobacco Use Types Packs/Day Years Used Date Former Smoker 2 20 04/02/1971 - 0 04/02/1991 Smokeless Tobacco: Never Used Alcohol Use Standard Drinks/Week Comments Yes 0 (1 standard drink = 0.6 oz pure alcoho l) [facility] Alcohol Habits Answer Date Recorded How [...] Start Date End Date ondansetron (ZOFRAN) 4 Take 1 tablet (4 mg) 20 tablet 3 MG tabletIndications: by mouth every 8 Nausea hours as needed for nausea cephALEXin (KEFLEX) 500 Take 1 capsule (500 14 capsule 0 12/202008/16/2020 MG capsuleIndications: mg) by mouth 2 times Dysuria daily for 7 days documented as of this encounter Plan of Treatment Not on filedocumented as of this encounter Procedures Procedure Name Priority Date/Time Associated Diagnosis Comme nts SARS-COV-2 Routine 08/14/2020 8:50 AM Encounter for Results for this (COVID-19) VIRUS CDT screening for other proc edure are in RT-PCR viral diseases the results section. COVID-19 VIRUS Routine 08/14/2020 8:50 AM Encounter for Result s for this (CORONAVIRUS) BY CDT screening for other proc edure are in PCR viral diseases the results section. documented in this encounter Results SARS-CoV-2 COVID-19 Virus (Coronavirus) by PCR (08/14/2020 8:50 AM CDT) [facility] Method Time Signature SARS-CoV-2 Nasopharyngeal 08/14/2020 [facility] OF Virus 4:36 PM [facility] SARS-CoV-2 NEGATIVE 08/14/2020 [facility] PCR Result 4:36 PM [facility] Comment: SARS-CoV2 (COVID-19) RNA not de tected, presumed negative. SARS-CoV-2 PCR Testing was performed using the Xpert Xpress SARS-CoV-2 Assay on the [employer] Gene-Xpert 08/14/2020 4:36 PM [facility] Comment Instrument Systems. Addition al information about this Emergency Use Authorization (EUA) [facility] assay can be found via the Lab Guide. [facility] Comment: This test should be ordered for the dete ction of SARS-CoV-2 in individuals who meet SARS-CoV-2 clinical and/or epidemi ological criteria. Test performance is unknown in asymptomatic patients. This test is for in vitro diagnostic use under the FDA EUA for laboratories certified under CLIA to perform high com plexity testing. This test has not been FDA cleared or approved. A negative result does not rule out the presence of PCR inhibitors in the specimen or target RNA in concentration below the limit of detection for the assay. The possibility of a false negati ve should be considered if the patient's recent exposure or clinical pr esentation suggests COVID-19. This test was validated by the [facility]. This laboratory i s certified under the Clinical Laboratory Improvement Amendments of 198 8 (CLIA-88) as qualified to perform high complexity laboratory testing. Specimen (Source) Anatomical Collection Method Collection Time Re ceived Time Location / / Volume Laterality Specimen from 08/14/2020 8:50 08/14/2020 nasopharyngeal AM CDT 8:51 AM CDT structure (specimen) Francisco Peguero MD LAB - MICRO GENERAL ORDERABL ES Performing Organization Address City/State/ZIP Code Phon e Number [facility] [address] [place] [address] [facility] Asymptomatic COVID-19 Virus (Coronavirus) by PCR (08/14/2020 8:50 AM CDT) Component Value Ref Test Analysis Performed At [facility] Method Time Signature COVID-19 Nasopharyngeal 08/14/2020 SHORTER Virus PCR to 8:51 AM CDT [facility] - [facility]OSP[facility] Source COVID-19 Test received-See 08/14/2020 INFECTIOUS Virus PCR to reflex to IDDL 1:05 PM CDT DISEASES [facility] - test SARS CoV2 DIAGNOSTIC Result (COVID-19) Virus LABORATORY, RT-PCR [facility] Specimen (Source) Anatomical Collection Method Collection Time Re ceived Time Location / / Volume Laterality Specimen from 08/14/2020 8:50 08/14/2020 nasopharyngeal AM CDT 8:51 AM CDT structure (specimen) Francisco Peguero MD LAB - MICRO GENERAL ORDERABL ES Performing Organization Address City/State/ZIP Code Phon e Number INFECTIOUS DISEASES [address] [place] [address] DIAGNOSTIC LABORATORY, [facility] [address] [phone] documented in this encounter Visit Diagnoses Diagnosis Encounter for screening for other viral diseases documented in this encounter Care Teams Study Abroad Advisor Relationship Specialty Start Date End Date No Ref-Primary, Physician PCP - General 07/15/20 Savanah Gaming PA-C Assigned PCP 06/24/20 08/25/20 [id number] [place] [address] documented as of this encounter
--- OUTSIDE RECORDS SUMMARY | 2021-12-01 11:20 | XMS_ITS | Encounter Summary ---
:1950 Author Organization [place] Address [address] [place] [address] Care Team Providers Name Role Phone No Ref-Primary, Physician Primary Care Provider [phone] Savanah Gaming PA-C Unavailable [phone] Encounter Details Date Type Department Care Team Description 08/09/2020 Travel Social History Tobacco Use Types Packs/Day [...] on filedocumented in this encounter Care Teams Sales Product Manager Relationship Specialty Start Date End Date No Ref-Primary, Physician PCP - General 07/15/20 Savanah Gaming PA-C Assigned PCP 06/24/20 08/25/20 [address] [place] [address] documented as of this encounter
--- OUTSIDE RECORDS SUMMARY | 2021-12-01 11:20 | XMS_ITS | Encounter Summary ---
:1950 Author Organization [facility] Address [facility] [place] [address] Care Team Providers Name Role Phone No Ref-Primary, Physician Primary Care Provider [phone] Savanah Gaming PA-C Unavailable [phone] Reason for Referral (Routine) - Closed Specialty Diagnoses / Procedures Referred By Contact Refer red To Contact Gastroenterology Diagnoses History of colonic polyps Savanah Gaming PA-C [address] [place] [address] Referral ID Status Reason Start Date Expiration Date Visits Requ ested Visits Authorized [id number] Closed 07/19/2020 07/19/2021 1 1 Scheduling Instructions If EUS or ERCP is selected, it requires clinical review prior to scheduling. Reason for Visit Reason Comments Hospital F/U Encounter Details Date Type Department Care Team Description 07/19/2020 Office Visit [facility] Savaanh Gaming Acsami e cystitis with hematuria (Primary Dx); Clinic Eladio Mendez PA-C Hyperkalemia; [id number] [facility] [address] Morbid obesity (H); [place], [place] Rectal bleedi ng; [id number] Diverticulosis of large intestine withou t hemorrhage; [phone] Bladder diverti culitis; (Work) Nausea; History o f colonic polyps Social History Tobacco Use Types Packs/Day Years [...] Sign Reading Time Taken Comments Blood Pressure 138/84 07/19/2020 2:22 PM CDT Pulse 80 07/19/2020 2:22 PM CDT Temperature 36.3 ??C (97.4 ??F) 07/19/2020 2:22 PM CDT Respiratory Rate 18 07/19/2020 2:22 PM CDT Oxygen Saturation - - Inhaled Oxygen Concentration - - Weight 117.9 kg (260 lb) 07/19/2020 2:22 PM CDT Height 180.3 cm (5' 11) 07/19/2020 2:22 PM CDT Body Mass Index 36.26 07/19/2020 2:22 PM CDT documented in this encounter Progress Notes Savanah Gaming PA-C - 07/19/2020 2:40 PM CDT Assessment & Plan Acute cystitis with hematuria Will recheck labs today, contaminated culture, pt reports symptoms improved but want to make labs are also improving. If no change, will need to see urology. - *UA reflex to Microscopic and Culture ([place] [facility] (except [place] and [place]) Hyperkalemia Recheck labs today. - Basic metabolic panel Morbid obesity (H) Is going to work on increasing physical activity. Rectal bleeding Slightly improved. Due for colonoscopy anyways. Diverticulosis of large intestine without hemorrhage Bladder diverticulitis Nausea Intermittent, will have pt start zofran, bland diet. - ondansetron (ZOFRAN) 4 MG tablet; Take 1 tablet (4 mg) by mouth every 8 hours as needed for nausea History of colonic polyps Referral provided. - GASTROENTEROLOGY ADULT REF PROCEDURE ONLY; Future BMI: Estimated body mass index is 36.26 kg/m?? as calculated from the following: Height as of this encounter: 1.803 m (5' 11). Weight as of this encounter: 117.9 kg (260 lb). Weight management plan: Discussed healthy diet and exercise guidelines Return in about 2 weeks (around 08/02/2020) for Recheck if not improving. Savanah Gaming PA-C [facility] is a 70 year old who presents for the following health issues HPI Hospital Follow-up Visit: Hospital/Retirement/IP Rehab Facility: [facility] Date of Admission: 07/15/20 Date of Discharge: 07/15/20 Reason(s) for Admission: Rectal bleeding, UTI, started on keflex. Was your hospitalization related to COVID-19? No Problems taking medications regularly: None Medication changes since discharge: None Problems adhering to non-medication therapy: None Summary of hospitalization: [facility] discharge summary reviewed Diagnostic Tests/Treatments reviewed. Follow up needed: repeat potassium, recheck urine Other Healthcare Providers Involved in Patient???s Care: None Update since discharge: fluctuating course. Post Discharge Medication Reconciliation: discharge medications reconciled, continue medications without change. Plan of care communicated with patient Additional complaints: None HPI additional notes: Marlon presents today with Chief Complaint Patient presents with ??? Hospital F/U Feeling poorly today. Had been constipated and then had a bowel movement after dinner. Had severe rectal pain for the rest of the night. Tried to make himself vomit and that helped somewhat with the pain. ED for severe rectal bleeding, just moved here from [place], staying with his step son. Bleeding from rectum has not been better since been on the antibiotics but UTI has been better. History of UTIs. Potassium was 5.7. Does not take any medications daily. Colonoscopy [address] Kenny in [place], repeat due in 3 years. No gerd since quit smoking. Review of Systems Constitutional, HEENT, cardiovascular, pulmonary, gi and gu systems are negative, except as otherwise noted. Objective BP 138/84 (BP Location: Right arm, Patient Position: Sitting, Cuff Size: Adult Large) Pulse 80 Temp 97.4 ??F (36.3 ??C) (Oral) Resp 18 Ht 1.803 m (5' 11) Wt 117.9 kg (260 lb) BMI 36.26 kg/m?? Body mass index is 36.26 kg/m??. Physical Exam Physical Exam GENERAL: healthy, alert, in no acute distress EYES: Grossly normal to inspection, EOMI, PERRL HENT: Mucous mebranes moist. NECK: Non-tender, no adenopathy. RESP: lungs clear to auscultation - no rales, no rhonchi, no wheezes CV: regular rate and rhythm, normal S1 S2. No peripheral edema. ABDOMEN: soft, nontender, no hepatosplenomegaly or masses. Normal bowel sounds in all four quadrants. SKIN: no suspicious lesions, no rashes PSYCH: Alert and oriented times 3; Able to articulate logical thoughts. Affect is normal. documented in this encounter Miscellaneous Notes Result Encounter Note - Savanah Gaming PA-C - 07/19/2020 2:40 PM CDT Hi Pat, I just wanted to let you know that your lab results have been reviewed and are attached. Your potassium has improved. Your blood sugar is high because you weren't fasting. Your urine looks better but I still want to send a culture to make sure the infection is clearing. Please make an appointment for your colonoscopy. Please let me know if you have any questions and have a great week! Sincerely, Raquel Gaming PA-C [facility] [address] [place] [address] Clinic documented in this encounter Plan of Treatment Scheduled Referrals Name Type Priority Associated Diagnoses Order S chedule GASTROENTEROLOGY ADULT REF Referral Routine History of col onic Expected: PROCEDURE ONLY polyps 07/19/2020, Expires: 2021 documented as of this encounter Procedures Procedure Name Priority Date/Time Associated Diagnosis Comme nts BASIC METABOLIC Routine 07/19/2020 2:44 PM Hyperkalemia Result s for this PANEL CDT procedure are i n the results section. URINE MICROSCOPIC Routine 07/19/2020 2:43 PM Acute cystitis wi th Results for this CDT hematuria procedure are i n the results section. UA MACROSCOPIC WITH STAT 07/19/2020 2:43 PM Acute cystitis with Results for this REFLEX TO CDT hematuria procedure are i n MICROSCOPIC AND the results CULTURE section. documented in this encounter Results (ABNORMAL) Basic metabolic panel (07/19/2020 2:44 PM CDT) athologist Signature Sodium 139 133 - 144 07/19/2020 [facility] mmol/L 8:44 PM [facility] Potassium 4.4 3.4 - 5.3 07/19/2020 [facility] mmol/L 8:44 PM [facility] Chloride 106 94 - 109 07/19/2020 [facility] mmol/L 8:44 PM [facility] Carbon Dioxide 28 20 - 32 07/19/2020 [facility] mmol/L 8:[address] [facility] Anion Gap 5 3 - 14 07/19/2020 [facility] mmol/L 8:[address] [facility] Glucose 120 (H) 70 - 99 07/19/2020 [facility] mg/dL 8:[address] [facility] Urea Nitrogen 31 (H) 7 - 30 07/19/2020 [facility] mg/dL 8:[address] [facility] Creatinine 1.19 0.66 - 07/19/2020 [facility] 1.25 mg/dL 8:[address] [facility] GFR Estimate 61 >60 07/19/2020 [facility] mL/min/{1. 8:55 PM [facility] 73_m2} HOSPITAL Comment: Non GFR Calc Starting 03/19/2018, serum creatinine ba sed estimated GFR (eGFR) will be calculated using the Chronic Kidney Dise ase Epidemiology Collaboration (CKD-EPI) equation. GFR Estimate If 71 >60 mL/min/{1.73_m2} 07/19/2020 8: 55 PM [facility] Comment: GFR Calc Starting 03/19/2018, serum creatinine ba sed estimated GFR (eGFR) will be calculated using the Chronic Kidney Dise ase Epidemiology Collaboration (CKD-EPI) equation. Calcium 9.5 8.5 - 10.1 mg/dL 07/19/2020 8:55 PM CDT [facility] Specimen Anatomical Collection Method Collection Time Receive d Time (Source) Location / / Volume Laterality Blood 07/19/2020 2:44 PM 1 2:45 CDT PM CDT Savanah Gaming PA-C LAB - BLOOD ORDERABLE S Performing Organization Address City/State/ZIP Code Phon e Number M [address] [address] [facility] [address] [place], [place] [address] [place] [address] [address], [facility] (ABNORMAL) Urine Microscopic (07/19/2020 2:43 PM CDT) [facility] gist Method Time Signature WBC Urine 5-10 (A) OTO5^0 - 5 07/19/2020 [place] /HPF 3:05 PM CDT [facility] RBC Urine 25-50 (A) OTO2^O - 2 07/19/2020 [facility] /HPF 3:05 PM CDT [facility] Squamous Few FEW^Few 07/19/2020 [place] Epithelial /LPF /LPF 3:05 PM CDT [facility] [place] Bacteria Urine Few (A) NEG^Negati 07/19/2020 [place] ve /HPF 3:05 PM CDT [facility] Calcium Oxalate Few (A) NEG^Negati 07/19/2020 [place] ve /HPF 3:05 PM CDT [facility] Specimen Anatomical Collection Method Collection Time Receive d Time (Source) Location / / Volume Laterality 07/19/2020 2:43 PM 1 2:44 CDT PM CDT Savanah Gaming PA-C LAB - URINE ORDERABLE S Performing Organization Address City/State/ZIP Code Phon e Number [facility] [phone] [place] [address] (ABNORMAL) *UA reflex to Microscopic and Culture [facility] [facility] [place] [facility] (07/19/2020 2:43 PM CDT) [facility] Method Time Signature Color Urine Yellow 07/19/2020 [place] 2:57 PM CDT [facility] Appearance Slightly 07/19/2020 [place] Urine Cloudy 2:57 PM CDT [facility] Glucose Urine Negative NEG^Negat 07/19/2020 [place] mg/dL 2:57 PM CDT [facility] Bilirubin Moderate (A) NEG^Negat 07/19/2020 [place] Urine husam 2:57 PM CDT [facility] Comment: This is an unconfirmed screenin g test result. A positive result may be false. Ketones Urine 40 (A) NEG^Negative mg/dL 07/19/2020 2:57 [facility] PM CDT [facility] Specific [place] 1.025 1.003 - 1.035 07/19/2020 2:57 [place] Urine PM CDT [facility] Blood Urine Large (A) NEG^Negative 07/19/2020 [facility]:57 [facility] pH Urine 5.5 5.0 - 7.0 pH 07/19/2020 2:57 [facility] Protein Albumin 100 (A) NEG^Negative mg/dL 07/19/2020 2:57 [place] Urine PM CDT [facility] Urobilinogen Urine 1.0 0.2 - 1.0 EU/dL 07/19/2020 2:57 [facility] CDT [facility] Nitrite Urine Negative NEG^Negative 07/19/2020 2:57 [facility] Leukocyte Esterase Small (A) NEG^Negative 07/19/2020 2:57 [facility] Urine PM CDT [facility] Source Midstream Urine 07/19/2020 2:45 [facility] CDT [facility] Specimen (Source) Anatomical Collection Method Collection Time Re ceived Time Location / / Volume Laterality Examination of 07/19/2020 2:43 07/19/2020 2:44 [place] urine PM CDT PM CDT specimen (procedure) Savanah Gaming PA-C LAB - URINE ORDERABLE S Performing Organization Address City/State/ZIP Code Phon e Number [facility] [phone] [place] [address] documented in this encounter Visit Diagnoses Diagnosis Acute cystitis with hematuria - Primary Acute cystitis Hyperkalemia Hyperpotassemia Morbid obesity (H) Morbid obesity Rectal bleeding Hemorrhage of rectum and anus Diverticulosis of large intestine withou t hemorrhage Bladder diverticulitis Diverticulum of bladder Nausea Nausea alone History of colonic polyps Personal history of colonic polyps documented in this encounter Care Teams Filer Helper Relationship Specialty Start Date End Date No Ref-Primary, Physician PCP - General 07/15/20 Savanah Gaming PA-C Assigned PCP 06/24/20 08/25/20 [id number] [place] [address] documented as of this encounter
--- OUTSIDE RECORDS SUMMARY | 2021-12-01 11:20 | XMS_ITS | Encounter Summary ---
:1950 Author Organization [facility] Address [address] [place] [address] Care Team Providers Name Role Phone No Ref-Primary, Physician Primary Care Provider [phone] Savanah Gaming PA-C Unavailable [phone] Reason for Visit Reason Comments Rectal Bleeding Encounter Details Date Type Department Care Team Description 07/15/2020 Emergency [facility] Jennifer Arita, Ur inary tract infection without hematuria, site unspecified; [facility] Emergency DO Hyperkalemia; Dept [facility] Rectal bleeding; [address] Diverticulosis of large intestine with h emorrge [place], [place] [address] [id number] [place] [address] (Wo rk) Social History Tobacco Use Types [...] Sign Reading Time Taken Comments Blood Pressure 140/80 07/15/2020 6:10 AM CDT Pulse 82 07/15/2020 6:10 AM CDT Temperature 36.3 ??C (97.3 ??F) 07/15/2020 1:46 AM CDT Respiratory Rate 20 07/15/2020 1:46 AM CDT Oxygen Saturation 99% 07/15/2020 6:05 AM CDT Inhaled Oxygen Concentration - - Weight - - Height - - Body Mass Index - - documented in this encounter Discharge Instructions AttachmentsThe following attachments cannot be sent through Care Everywhere. Urinary Tract Infections (UTIs), Understanding (Citizen [place])Rectal Bleeding, Evaluating and Treating (Citizen [place])documented in this encounter Medications at Time of Discharge Medication Sig Dispensed Refills Start Date End Date cephALEXin (KEFLEX) 500 Take 1 capsule (500 14 capsule 0 07/22/2020 MG capsule mg) by mouth 2 times daily for 7 days documented as of this encounter ED Notes Juan Alberto Mello RN - 07/15/2020 1:44 AM CDT Bright red blood from rectum when using toilet x1 at 0100. Never had this have in the past. Hx of diverticulosis. Jennifer Arita DO - 07/15/2020 1:36 AM CDT History Chief Complaint: Rectal Bleeding HPI Marlon Benton is a 70 year old male with history of diverticulosis who presents for evaluationof rectal bleeding. The patient reports that he was using the toilet this morning at 0100 when he noticed rectal bleeding that was bright red and present predominately with wiping. He has never had this happen prior and denies passing clots. He further denies fever, abdominal pain, chills, chest pain,shortness of breath, lightheadedness, or use of blood thinners. The patient uses alcohol daily though denies history of varicies. He has had 2 prior colonoscopy's. Patient reports he additionally has been urinating more frequently and does have a history of UTIs. He reports moving from [place] 2 days prior. Review of Systems Constitutional: Negative for chills and fever. Respiratory: Negative for shortness of breath. Cardiovascular: Negative for chest pain. Gastrointestinal: Positive for anal bleeding. Negative for abdominal pain. Neurological: Negative for light-headedness. All other systems reviewed and are negative. Allergies: No Known Allergies Medications: Denies Past Medical History: Diverticulosis Past Surgical History: colonoscopy Social History: The patient was accompanied to the ED by step-son. Alcohol Use: Positive Drug Use: positive; marijuana Physical Exam Patient Vitals for the past 24 hrs: BP Temp Temp src Pulse Resp SpO2 07/15/20 0610 (!) 140/80 -- -- 82 -- -- 07/15/20 0605 -- -- -- -- -- 99 % 07/15/20 0600 -- -- -- -- -- 100 % 07/15/20 0555 -- -- -- -- -- 99 % 07/15/20 0415 (!) 140/97 -- -- 116 -- -- 07/15/20 0146 (!) 125/103 97.3 ??F (36.3 ??C) Temporal 97 20 99 % Physical Exam Nursing note and vitals reviewed. Constitutional: Well nourished. Eyes: Conjunctiva normal. Pupils are equal, round, and reactive to light. ENT: Nose normal. Mucous membranes pink and moist. Neck: Normal range of motion. CVS: Normal rate, regular rhythm. Normal heart sounds. Pulmonary: Lungs clear to auscultation bilaterally. No wheezes/rales/rhonchi. GI: Abdomen soft. Mild generalized abdominal pain. No rigidity or guarding. No CVA tenderness. SHE without araeblla blood/melena. No external hemorrhoids/palpable mass. Family Lawyer MICHAEL Avila MSK: No calf tenderness or swelling. Neuro: Alert. Follows simple commands. Skin: Skin is warm and dry. No rash noted. Psychiatric: Normal affect. Emergency Department Course ECG: ECG taken at 0555, ECG read at 0558 Sinus tachycardia Left anterior fascicular block Septal infarct, age undetermined ST & T wave abnormality, consider lateral ischemia Abnormal ECG Rate 116 bpm. CA interval * ms. QRS duration 124 ms. QT/QTc 308/428 ms. P-R-T axes * -45 103. Imaging: Abd/pelvis CT, IV contrast only TRAUMA / AAA 1. Left bladder diverticulum. Wall thickening of the bladder and diverticulum consistent with cystitis. 2. Nonobstructing right renal calculus. 3. Diverticulosis. Reading per radiology Laboratory: UA: Urineketon 40 (A), Blood moderate (A), Protein 200 (A), Leukocyte Esterase large (A), WBC >182 (H), RBC 30 (H), WBC Clumps present (A), Bacteria moderate (A), Squamous Epithelial 3 (H), Mucous present (A), o/w WNL. Urine culture: pending Stool Occult Blood: Positive (A) CBC: WBC 11.7 (H), HGB 15.8, PLT 241 CMP: Potassium 5.7 (H), Chloride 111 (H), Glucose 110 (H), Bilirubin Total 1.4 (H), Albumin 3.0 (L),o/w WNL (Creatinine 0.72) INR: 1.10 Emergency Department Course: Reviewed: I reviewed the patient's nursing notes, vitals. Assessments: 0336 I performed an exam of the patient as documented above. 05 Patient rechecked and updated. Interventions: 05 Keflex 500 mg PO Disposition: The patient was discharged to home. Impression & Plan Medical Decision Making: Marlon Benton is a 70 year old male who presents to the emergency department today for rectal bleeding. Patient nontoxic on arrival in no significant distress. Patient had minimal abdominal tenderness so decision was made to pursue formal CT which is fortunately without evidence of intraabdominal catastrophe. Incidental R. nonobstructing renal calculi identified. Labs reviewed, H/H stable, guaiac positive stools. Patient had no significant active bleeding on exam. No indication for blood transfusion at this time. Mild hyperkalemia as well, no labs for comparison. No EKG changes. Patient denies any medications. Stable renal function. UA does suggest infection, formal culture sent. No evidenceto suggest pyelonephritis. Patient was given his first dose of antibiotics during his time in the ED. Plan for close PCP f/u, referral provided today as patient just moved to [place]. I will dispo home withantibiotics. We reviewed indications to represent including fever, worsening abdominal pain/back pain, chest pain. I recommended closely following potassium level as should this become too high can lead to life threatening arrhythmias. Regarding his rectal bleeding, possible secondary to mild diverticular bleed. No evidence of underlying coagulopathy and patient denies history of varicies. We reviewed to represent should he develop bleeding>1pad/hour. All questions addressed. Diagnosis: ICD-10-CM 1. Urinary tract infection without hematuria, site unspecified N39.0 2. Hyperkalemia E87.5 3. Rectal bleeding K62.5 4. Diverticulosis of large intestine with hemorrhage K57.31 Discharge Medications: New Prescriptions CEPHALEXIN (KEFLEX) 500 MG CAPSULE Take 1 capsule (500 mg) by mouth 2 times daily for 7 days Scribe Disclosure: Dave Yolycameron Cortes, am serving as a scribe at 3:23 AM on 07/15/2020 to document services personally performed by Jennifer Arita DO based on my observations and the provider's statements to me. [facility] EMERGENCY DEPT Jennifer Arita DO 07/15/20 0620 documented in this encounter Miscellaneous Notes Result Encounter Note - Mejia Dowling RN - 07/15/2020 6:10 AM CDT [facility] Emergency Dept discharge antibiotic (if prescribed): Cephalexin (Keflex) 500 mg capsule, 1 capsule (500 mg) by mouth 2 times daily for 7 days. Date of Rx (if applicable): 07/15/20 No changes in treatment per [facility] ED Lab Result Urine culture protocol. Result Encounter Note - Mejia Dowling RN - 07/15/2020 6:10 AM CDT Final urine culture report is negative. Adult Negative Urine culture parameters: Any # Urogenital single or mixed organism, <10,000 col/ml single organism (cath specimen), and <50,000 col/ml single organism (midstream or cath specimen). Emergency Dept discharge Rx: Cephalexin (Keflex) 500 mg capsule, 1 capsule (500 mg) by mouth 2 timesdaily for 7 days. Treatment recommendations per [facility] ED Lab Result Urine Culture protocol. documented in this encounter Plan of Treatment Not on filedocumented as of this encounter Procedures Procedure Name Priority Date/Time Associated Comments Diagnosis EKG 12-LEAD, TRACING STAT 07/15/2020 5:55 AM R esults for this ONLY CDT procedure are i n the results section. CT ABDOMEN PELVIS W STAT 07/15/2020 5:24 AM Re sults for this CONTRAST CDT procedure are i n the results section. OCCULT BLOOD STOOL STAT 07/15/2020 3:58 AM Res ults for this CDT procedure are i n the results section. ROUTINE UA WITH STAT 07/15/2020 3:58 AM Result s for this MICROSCOPIC CDT procedure are i n the results section. URINE CULTURE Routine 07/15/2020 3:58 AM Urinary tract Results for this CDT infection without procedure are in hematuria, site the results unspecified section. CBC WITH PLATELETS & STAT 07/15/2020 2:20 AM R esults for this DIFFERENTIAL CDT procedure are i n the results section. INR Routine 07/15/2020 2:20 AM Results f or this CDT procedure are i n the results section. COMPREHENSIVE Routine 07/15/2020 2:20 AM Results for this METABOLIC PANEL CDT procedure ar e in the results section. documented in this encounter Results EKG 12 lead (07/15/2020 5:55 AM CDT) [facility] gist Method Time Signature Interpretation ECG Click View RADIOLOGY Image link RESULTS to view waveform and result Specimen (Source) Anatomical Collection Method Collection Time Re ceived Time Location / / Volume Laterality 07/15/2020 5:55 AM CDT Jennifer Arita DO ECG ORDERABLES Performing Organization Address City/State/ZIP Code Phon e Number RADIOLOGY RESULTS Abd/pelvis CT, IV contrast only TRAUMA / AAA (07/15/2020 5:24 AM CDT) Anatomical Region Laterality Modality Abdomen/Pelvis, SUBRAD CT BODY, UMP CT ABDOMEN PELVIS, Computed Tomography RAD CT Specimen (Source) Anatomical Collection Method Collection Time Re ceived Time Location / / Volume Laterality 07/15/2020 5:08 AM CDT Impressions 07/15/2020 5:38 AM CDT IMPRESSION: 1. ??Left bladder diverticulum. Wall thi ckening of the bladder and diverticulum consistent with cystitis. 2. ??Nonobstructing right renal calculus . 3. ??Diverticulosis. Narrative 07/15/2020 5:38 AM CDT EXAM: CT ABDOMEN PELVIS W CONTRAST LOCATION: [facility] DATE/TIME: 07/15/2020 5:08 AM INDICATION: Abdominal pain, acute, nonlo calized COMPARISON: None. TECHNIQUE: CT scan of the abdomen and pe lvis was performed following injection of IV contrast. Multiplanar reformats were obtained. Dose reduction techniques were used. CONTRAST: 100mL Isovue-370 FINDINGS: LOWER CHEST: Lung bases clear. Small hia saul hernia. HEPATOBILIARY: Mild hepatic steatosis. D ifficult to exclude sludge or cholelithiasis in the gallbladder. PANCREAS: Normal. SPLEEN: Normal. ADRENAL GLANDS: Diffuse nodular thickeni ng of the adrenal glands. KIDNEYS/BLADDER: Renal cysts. Left parap elvic cysts. 10 mm calculus lower pole right kidney. Large left bladder diverticulum. Diffuse wall thickening of the bladder diverticulum with surrounding inflammation. BOWEL: Normal caliber. Diverticulosis. N ormal appendix. LYMPH NODES: Normal. VASCULATURE: Diffuse atherosclerotic vas cular calcification. PELVIC ORGANS: Prostate calcification. MUSCULOSKELETAL: Degenerative change oss eous structures. Procedure Note Belen Mckinney MD, MD - EXAM: CT ABDOMEN PELVIS W CONTRAST LOCATION: [facility] DATE/TIME: 07/15/2020 5:08 AM INDICATION: Abdominal pain, acute, nonlo calized COMPARISON: None. TECHNIQUE: CT scan of the abdomen and pe lvis was performed following injection of IV contrast. Multiplanar reformats were obtained. Dose reduction techniques were used. CONTRAST: 100mL Isovue-370 FINDINGS: LOWER CHEST: Lung bases clear. Small hia saul hernia. HEPATOBILIARY: Mild hepatic steatosis. D ifficult to exclude sludge or cholelithiasis in the gallbladder. PANCREAS: Normal. SPLEEN: Normal. ADRENAL GLANDS: Diffuse nodular thickeni ng of the adrenal glands. KIDNEYS/BLADDER: Renal cysts. Left parap elvic cysts. 10 mm calculus lower pole right kidney. Large left bladder diverticulum. Diffuse wall thickening of the bladder diverticulum with surrounding inflammation. BOWEL: Normal caliber. Diverticulosis. N ormal appendix. LYMPH NODES: Normal. VASCULATURE: Diffuse atherosclerotic vas cular calcification. PELVIC ORGANS: Prostate calcification. MUSCULOSKELETAL: Degenerative change oss eous structures. IMPRESSION: 1. Left bladder diverticulum. Wall thick ening of the bladder and diverticulum consistent with cystitis. 2. Nonobstructing right renal calculus. 3. Diverticulosis. Jennifer Arita DO IMG CT ORDERABLES Urine Culture Aerobic Bacterial (07/15/2020 3:58 AM CDT) Component Value Ref Test Analysis Performed At [facility] Range Method Time Signature Specimen Midstream Urine INFECTIOUS Description [facility] [place] Special Specimen received 07/15/2020 INFECTIOUS Requests in preservative 8:41 AM CDT [facility] Culture Micro >100,000 colonies/mL 07/16/2020 INFE CTIOUS mixed urogenital cristian 9:44 AM CDT DIS[facility] SES Susceptibility testing not routinely done [facility] Specimen (Source) Anatomical Collection Method Collection Time Re ceived Time Location / / Volume Laterality Examination of 07/15/2020 3:58 07/15/2020 5:01 midstream urine AM CDT AM CDT specimen (procedure) Jennifer Arita DO LAB - MICRO GENERAL ORDERABL ES Performing Organization Address City/State/ZIP Code Phon e Number INFECTIOUS [facility] [address] [facility] [address] [address] LABORATORY, [place] (ABNORMAL) Stool: occult blood (07/15/2020 3:58 AM CDT) [facility] Method [facility] Signature Occult Blood Positive (A) NEG^Negat 07/15/2020 [place] husam 4:23 AM [facility] Specimen Anatomical Collection Method Collection Time Receive d Time (Source) Location / / Volume Laterality Stool 07/15/2020 3:58 AM 4:21 CDT AM CDT Jennifer Arita DO LAB - STOOLS ORDERABLES Performing Organization Address City/State/ZIP Code Phon e Number [facility] [address] [place], [place] [address] [phone] [facility] [address] [phone] (ABNORMAL) UA with Microscopic (07/15/2020 3:58 AM CDT) [facility] Method Time Signature Color Urine Yellow 07/15/2020 [facility] 4:37 AM [facility] Appearance Urine Cloudy 07/15/2020 [facility] 4:37 AM [facility] Glucose Urine Negative NEG^Negat 07/15/2020 [facility] [place] mg/dL 4:37 AM [facility] Bilirubin Urine Negative NEG^Negat 07/15/2020 [facility] husam 4:37 AM [facility] Ketones Urine 40 (A) NEG^Negat 07/15/2020 [facility] hus[place] mg/dL 4:37 AM [facility] Specific [place] 1.016 1.003 - 07/15/2020 [facility] Urine 1.035 4:37 AM [facility] Blood Urine Moderate (A) NEG^Negat 07/15/2020 [facility] husam 4:37 AM [facility] pH Urine 6.0 5.0 - 7.0 07/15/2020 [facility] pH 4:37 AM [facility] Protein Albumin 200 (A) NEG^Negat 07/15/2020 [facility] Urine husam mg/dL 4:37 AM [facility] Urobilinogen Normal 0.0 - 2.0 07/15/2020 [facility] mg/dL mg/dL 4:37 AM [facility] Nitrite Urine Negative NEG^Negat 07/15/2020 [facility] husam 4:37 AM [facility] Leukocyte Large (A) NEG^Negat 07/15/2020 [facility] Esterase Urine husam 4:37 AM [facility] Source Midstream 07/15/2020 [facility] Urine 3:58 AM [facility] WBC Urine >182 (H) 0 - 5 07/15/2020 [facility] /HPF 4:37 AM [facility] RBC Urine 30 (H) 0 - 2 07/15/2020 [facility] /HPF 4:37 AM [facility] WBC Clumps Present (A) NEG^Negat 07/15/2020 [facility] hus[place] /HPF 4:37 AM [facility] Bacteria Urine Moderate (A) NEG^Negat 07/15/2020 [facility] husam /HPF 4:37 AM [facility] Squamous 3 (H) 0 - 1 07/15/2020 [facility] Epithelial /HPF /HPF 4:37 AM [facility] Mucous Urine Present (A) NEG^Negat 07/15/2020 [facility] hus[place] /LPF 4:37 AM [facility] Specimen (Source) Anatomical Collection Method Collection Time Re ceived Time Location / / Volume Laterality Examination of URINE SPECIMEN 07/15/2020 3:58 07/16/19 4:21 midstream urine OBTAINED BY CLEAN AM CDT AM CDT specimen CATCH PROCEDURE / (procedure) Unknown Jenniefr Arita DO LAB - URINE ORDERABLES Performing Organization Address City/[facility]/ZIP [facility] Phon e Number M [facility] [address], [place] [address] [facility] [address] [place], [place] [address], [facility] [phone] INR (07/15/2020 2:20 AM CDT) athologist Signature INR 1.10 0.86 - 1.14 07/15/2020 [facility] 3:53 AM CDT HOSPITAL Specimen Anatomical Collection Method Collection Time Receive d Time (Source) Location / / Volume Laterality 07/15/2020 2:20 AM 2:27 CDT AM CDT Jennifer Arita DO LAB - BLOOD ORDERABLES Performing Organization Address City/[facility] Code Phon e Number [facility] [address] [place], [place] [address] [facility] [address] [place], [place] [address] [facility] [phone] (ABNORMAL) Comprehensive metabolic panel (07/15/2020 2:20 AM CDT) athologist Signature Sodium 140 133 - 144 07/15/2020 [place] mmol/L 4:[address] [facility] Potassium 5.7 (H) 3.4 - 5.3 07/15/2020 [place] mmol/L 4:[address] [facility] Chloride 111 (H) 94 - 109 07/15/2020 [place] mmol/L 4:[address] [facility] Carbon Dioxide 24 20 - 32 07/15/2020 [place] mmol/L 4:[address] [facility] Anion Gap 5 3 - 14 07/15/2020 [place] mmol/L 4:22 AM [facility] Glucose 110 (H) 70 - 99 07/15/2020 [place] mg/dL 4:22 AM [facility] Urea Nitrogen 27 7 - 30 07/15/2020 [place] mg/dL 4:22 AM [facility] Creatinine 0.72 0.66 - 07/15/2020 [place] 1.25 mg/dL 4:22 AM [facility] GFR Estimate >90 >60 07/15/2020 [place] mL/min/{1. 4:22 AM [facility] 73_m2} HOSPITAL Comment: Non GFR Calc Starting 03/19/2018, serum creatinine ba sed estimated GFR (eGFR) will be calculated using the Chronic Kidney Dise [facility] Epidemiology Collaboration (CKD-EPI) equation. GFR Estimate If >90 >60 mL/min/{1.73_m2} 07/15/2020 4: 22 AM [facility] Comment: GFR Calc Starting 03/19/2018, serum creatinine ba sed estimated GFR (eGFR) will be calculated using the Chronic Kidney Dise [facility] Epidemiology Collaboration (CKD-EPI) equation. Calcium 8.9 8.5 - 10.1 07/15/2020 4:22 AM [facility] mg/dL [facility] Bilirubin Total 1.4 (H) 0.2 - 1.3 mg/dL 07/15/2020 4:22 AM [facility] Albumin 3.0 (L) 3.4 - 5.0 g/dL 07/15/2020 4:22 AM [facility] Protein Total 7.1 6.8 - 8.8 g/dL 07/15/2020 4:22 AM [facility] Alkaline Phosphatase 80 40 - 150 U/L 07/15/2020 4:22 AM [facility] ALT 26 0 - 70 U/L 07/15/2020 4:22 AM [facility] AST 43 0 - 45 U/L 07/15/2020 4:22 AM [facility] Comment: Specimen is hemolyzed which can falsely elevate AST. Analysis of a non-hemolyzed specimen may result in a l ower value. Specimen Anatomical Collection Method Collection Time Receive d Time (Source) Location / / Volume Laterality 07/15/2020 2:20 AM 2:27 CDT AM CDT Jennifer Arita LAB - BLOOD ORDERABLES Performing Organization Address City/State/ZIP Code Phon e Number M [facility] [address] [place] [address] [facility] [address] [place] [address], [place] [phone] (ABNORMAL) CBC with platelets differential (07/15/2020 2:20 AM CDT) [facility] Method Time Signature WBC 11.7 (H) 4.0 - 07/15/2020 [facility] 11.0 2:30 AM [facility] 10e9/L [facility] RBC Count 5.02 4.4 - 5.9 07/15/2020 [facility] 10e12/L 2:30 AM [facility] Hemoglobin 15.8 13.3 - 07/15/2020 [facility] 17.7 g/dL 2:30 AM [facility] Hematocrit 48.2 40.0 - 07/15/2020 [facility] 53.0 % 2:30 AM [facility] MCV 96 78 - 100 07/15/2020 [facility] fl 2:30 AM [facility] MCH 31.5 26.5 - 07/15/2020 [facility] 33.0 pg 2:30 AM [facility] MCHC 32.8 31.5 - 07/15/2020 [facility] 36.5 g/dL 2:30 AM [facility] RDW 13.7 10.0 - 07/15/2020 [facility] 15.0 % 2:30 AM [facility] Platelet Count 241 150 - 450 07/15/2020 [facility] 10e9/L 2:30 AM [facility] Diff Method Automated 07/15/2020 [facility] Method 2:30 AM [facility] % Neutrophils 75.5 % 07/15/2020 [facility] 2:30 AM [facility] % Lymphocytes 13.7 % 07/15/2020 [place] 2:30 AM [facility] % Monocytes 8.3 % 07/15/2020 [facility] % Eosinophils 1.6 % 07/15/2020 [facility] % Basophils 0.5 % 07/15/2020 [place] 2:30 AM [facility] % Immature 0.4 % 07/15/2020 [facility] Granulocytes 2:30 AM [facility] Nucleated RBCs 0 0 /100 07/15/2020 [facility] 2:30 AM [facility] Absolute 8.8 (H) 1.6 - 8.3 07/15/2020 [place] Neutrophil 10e9/L 2:30 AM [facility] Absolute 1.6 0.8 - 5.3 07/15/2020 [place] Lymphocytes 10e9/L 2:30 AM [facility] Absolute 1.0 0.0 - 1.3 07/15/2020 [facility] Monocytes 10e9/L 2:30 AM [facility] Absolute 0.2 0.0 - 0.7 07/15/2020 [facility] Eosinophils 10e9/L 2:30 AM [facility] Absolute 0.1 0.0 - 0.2 07/15/2020 [place] Basophils 10e9/L 2:30 AM [facility] Abs Immature 0.1 0 - 0.4 07/15/2020 [place] Granulocytes 10e9/L 2:30 AM [facility] Absolute 0.0 07/15/2020 [place] Nucleated RBC 2:30 AM [facility] Specimen Anatomical Collection Method Collection Time Receive d Time (Source) Location / / Volume Laterality Blood 07/15/2020 2:20 AM 2:27 CDT AM CDT Jennifer Arita DO LAB - BLOOD ORDERABLES Performing Organization Address City/State/ZIP Code Phon e Number M [facility] [address], [place] [address] [facility] [address] [phone] documented in this encounter Visit Diagnoses Diagnosis Urinary tract infection without hematuri a, site unspecified Hyperkalemia Hyperpotassemia Rectal bleeding Hemorrhage of rectum and anus Diverticulosis of large intestine with h emorrhage documented in this encounter Administered Medications Inactive Administered Medications - up to 3 most recent administrations Medication Order MAR Action Action Date Dose Rate Site 0.9% sodium chloride BOLUS New Bag 07/15/2020 5:12 AM CDT 65 mLs Intravenous, 100 mL, ONCE, On Celine 07/15/20 at 0510, For 1 dose cephALEXin (KEFLEX) capsule 500 mg Given 07/15/2020 5:43 AM CDT 500 mg STAT, 500 mg, Oral, ONCE, On Celine 07/15/20 at 0450, For 1 dose, Indications: Urinary Tract Infection iopamidol (ISOVUE-370) solution 500 mL Given 07/15/2020 5:12 AM CDT 100 mLs 500 mL, Intravenous, ONCE, On Celine 07/15/20 at 0510, For 1 dose documented in this encounter Active and Recently Administered Medications Times are shown in CDT. Scheduled Medication Order 07/13/2020 07/14/2020 07/15/2020 0.9% sodium chloride BOLUS (COMPLETED) 05 (New Bag - Provider: Migdalia Evans)0537 (Stopped - Provider: Marlena Duffy RN) Intravenous, 100 mL, ONCE, Celine 07/15/20 at 0510, For 1 dose cephALEXin (KEFLEX) capsule 500 mg (COMPLETED) 0543 (Given - Provider: Marlena Duffy RN) STAT, 500 mg, Oral, ONCE, Celine 07/15/20 at 0450, For 1 dose, Indications: Urinary Tract Infection iopamidol (ISOVUE-370) solution 500 mL (COMPLETED) 0512 (Given - Provider: Migdalia Evans) 500 mL, Intravenous, ONCE, Celine 07/15/20 at 0510, For 1 dose documented in this encounter Care Teams Call Center Associate Relationship Specialty Start Date End Date No Ref-Primary, Physician PCP - General 07/15/20 Savanah Gaming PA-C Assigned PCP 06/24/20 08/25/20 [id number] [place] [address] documented as of this encounter
--- OUTSIDE RECORDS SUMMARY | 2021-12-01 11:20 | XMS_ITS | Encounter Summary ---
:1950 Author Organization [facility] Address [address] [place] [id number] Care Team Providers Name Role Phone No Ref-Primary, Physician Primary Care Provider [phone] Savanah Gaming PA-C Unavailable [phone] Encounter Details Date Type Department Care Team Description 07/19/2020 Travel Social History Tobacco Use Types Packs/Day [...] on filedocumented in this encounter Care Teams V Belt Finisher Relationship Specialty Start Date End Date No Ref-Primary, Physician PCP - General 07/15/20 Savanah Gaming PA-C Assigned PCP 06/24/20 08/25/20 [address] [place] [address] documented as of this encounter
--- OUTSIDE RECORDS SUMMARY | 2021-12-01 11:20 | XMS_ITS | Encounter Summary ---
:1950 Author Organization [facility] Address [address] [place] [address] Care Team Providers Name Role Phone No Ref-Primary, Physician Primary Care Provider [phone] Savanah Gaming PA-C Unavailable [phone] Reason for Visit Auth/Cert Specialty Diagnoses / Procedures Referred By Contact Refer red To Contact Gastroenterology Diagnoses Hx of colonic polyps Hx of colonic polyps [Z86.010] Endoscopy Procedures HC COLONOSCOPY W/WO BRUSH/WASH COLONOSCOPY [address] [place] [address] Phone: Fax: Referral ID Status Reason Start Date Expiration Date Visits Requ ested Visits Authorized [id number] 1 1 Encounter Details Date Type Department Care Team Description 08/18/2020 Surgery [facility] Hallie Rivera, COLO NOSCOPY with Endoscopy Evy HOOVER polypectomies USING hot [address] [place], [place] GASTROINTESTINAL [phone] [place] [address] [place], [place] [id number] Surgery Details Date/Time Status Location OR Service Patient Class Case Case Trauma Class Type Case? 08/18/20 Posted GI GI A Gastroenterology Outpatient 12:30 PM Panel 1 Procedure LRB Anes Op Region Wound Class Commen ts COLONOSCOPY with N/A Conscious Sedation Rectum II-Clean Co ntaminated polypectomies USING hot SNARE Surgeon Surgeon Role Service Panel Hallie Rivera MD Primary Gastroenterology 1 Special Needs Ps 07/29 ah(FV) documented in this encounter Social History Tobacco Use Types Packs/Day Years [...] / COVID-19? documented as of this encounter Discharge Instructions AttachmentsThe following attachments cannot be sent through Care Everywhere. Diverticulosis and Diverticulitis, Understanding (Scottish)Diet, High-Fiber (Scottish)Colon and Rectal Polyps, Understanding (Scottish)documented in this encounter Medications at Time of [...] REMOVAL USING SNARE Special Needs Ps 07/29 (FV) documented in this encounter Results Surgical pathology exam (08/18/2020 1:23 PM CDT) Component Value Ref Test Analysis Performed At [facility] Range Method Time Signature Copath Report Patient Name: MARLON BENTON MR#: [id number] Specimen #: [id number] Collected: 08/18/2020 Received: 08/18/2020 Reported: 08/19/2020 09:46 [...] of this testing was completed at the [facility], with the professional compo nent performed at the [facility], [address] [place] [address] [phone] ([phone]) CPT Codes: A: 99170-UR8 B: 80822-DB5 COLLECTION SITE: Client: [facility] Specimen (Source) Anatomical Collection Method Collection Time Re ceived Time Location / / Volume Laterality Polyp LARGE INTESTINE 08/18/2020 1:23 PM PART / Unknown CDT Polyp LARGE INTESTINE 08/18/2020 1:32 PM (morphologic PART / Unknown CDT abnormality) Hallie Rivera MD [facility] Performing Organization Address City/State/ZIP Code Phon e Number [place] COLONOSCOPY (08/18/2020 1:07 PM CDT) [facility] Method Time Signature COLONOSCOPY [facility] RAD IOLOGY RESULTS Patient Name: Marlon Benton ?Procedure Date: 08/18 1:07 PM ? Accou nt Number: [id number] Date of : 1950 ?Admit Type: Out patient Age: 70 ? Gender: Male Attending MD: Hallie galladro MD ?? Total Sedation Time: 17_minutes continuous [...] and ?oxygen saturations were monitored continuously. The ?Reamaze Adult Colonoscope, Model # CF-TG041F, ?Endora # 222, SN # [id number] was introduced through ?the anus and advanced [...] Procedure Code(s): ? --- Professional --- ? 33528, Colonoscopy, flexible; with removal of tumor (s), polyp(s), or ? other lesion(s) by snare technique Diagnosis Code(s): ? --- Professional --- ? K63.5, Polyp of colon CPT copyright 2019 [employer]. All rights reserved. The codes documented in this report are prelimin tarah and upon legal billing specialist review may be revised to meet current compliance requirements. Electronically signed by Hallie Rivera MD Hallie Rivera MD 08/18/2020 1:41:27 PM I was physically present for the entire viewing portion of t he exam. Hallie Rivera MD Number of Addenda: 0 Note Initiated On: 08/18/2020 1:07 PM MRN: ?[id number] Procedure Date: ? 08/18/2020 1:07:30 PM Scope [...] Urinary tract infection, site not specif ied Hx of colonic polyps Personal history of colonic polyps documented in this encounter Administered Medications Inactive [...] For ordered IV doses 0.1-2mg give I HOSPICE MANAGER. Give each 0.4mg over 15 seconds in [...]
Post-procedure documented in this encounter Care Teams Music Minist[employer] Director Relationship Specialty Start Date End Date No Ref-Primary, Physician PCP - General 07/15/20 Savanah Gaming PA-C Assigned PCP 06/24/20 08/25/20 [id number] [place] [address] documented as of this encounter
--- OUTSIDE RECORDS SUMMARY | 2021-12-01 11:21 | XMS_ITS | Encounter Summary ---
:1950 Author Care Team Providers Name Role Phone Estela Elaine MD Primary Care Provider [phone] Reason for Visit Lab/Nursing Visit Assessment and Plan 1. Retention of urine ? urinalysis, dipstick ? culture, urine Discussion Note: None recorded.Patient educational handouts: No information available. Plan of Care Reminders Provider Appointments None recorded. ? ? Lab Urinalysis, Dipstick 11/28/2021 [facility] ? Culture, Urine 11/28/2021 [facility] Referral None recorded. ? ? Procedures None recorded. ? ? Surgeries None recorded. ? ? Imaging None recorded. ? ? Medications Name Start Date ? ? aspirin 81 mg tablet,delayed release ? TAKE 1 TABLET BY MOUTH EVERY DAY carvedilol 3.125 mg tablet ? TAKE 1 TABLET BY MOUTH TWICE A DAY WITH MEALS cefdinir 300 mg capsule ? TAKE 1 CAPSULE BY MOUTH TWICE A DAY FOR 7 DAYS ceftriaxone 1 gram solution for injection ? Take 1 g by injection route. cephalexin 500 mg capsule ? TAKE 1 CAP BY MOUTH 2 TIMES DAILY FOR 10 DAYS ciprofloxacin 250 mg tablet ? TAKE 2 TABLETS BY MOUTH 2 TIMES DAILY FOR 7 DAYS. ciprofloxacin 500 mg tablet ? TAKE 1 TABLET TWICE A DAY Eliquis 5 mg tablet ? TAKE 1 TABLET BY MOUTH TWICE A DAY metoprolol succinate ER 25 mg tablet,extended release 24 hr ? TAKE 1 TABLET (25 MG) BY MOUTH DAILY sulfamethoxazole 800 mg-trimethoprim 160 mg tablet ? TAKE 1 TABLET BY MOUTH TWICE A DAY Medications Administered None recorded. Vitals None recorded. Results Lab Results Date Name Specimen Result Interpretation Description Value Range Status Address ? 11/28/2021 Urinalysis, UR ? Color yellow yellow Final [place] Dip[facility]: [address] [facility] [address], [place] ? ? UR ABNORMAL Appearance turbid clear Final [place] [facility]: [address] [facility] [address], [place] ? ? UR ? Glucose negative negative Final [place] [facility] mg/dL mg/dL [facility]: [address] [address], [place] ? ? UR ? Bilirubin negative negative Final [place] [facility]: [address] [address], [place] ? ? UR ? Ketones negative negative Final [place] [facility] mg/dL mg/dL [facility]: [address] [address], [place] ? ? UR ? Sp. [place] <=1.005 1.010-1.0 Final [place] [facility]: [address] [address], [place] ? ? UR ? pH -[facility] 5.0 5.0-8.0 Final [place] [facility]: [address] [address], [place] ? ? UR ? Protein negative negative Final [place] [facility] mg/dL mg/dL [facility]: [address] [address], [place] ? ? UR ? Urobilinogen 0.2 normal Final [place] [facility]: [address] [address], [place] ? ? UR ABNORMAL Nitrites positive negative Final [place] [facility]: [address] [address], [place] ? ? UR ABNORMAL Blood moderate negative Final [place] [facility]: [address] [address], [place] ? ? UR ABNORMAL Leukocytes large negative [place] [facility]: [address] [address], [place] ? ? UR ? Performed by aida T ? Final [place] [facility]: [address] [address], [place] ? ? UR ? Total Urine 20 /mL ? Final [place] Volume (mL) [facility]: [address] 11/28/2021 Culture, UR ABNORMAL Final Report microbiology ? Final [place] [facility]: [address] [address], [place] Allergies None recorded. Problems None recorded. Procedures Date Name Performed by ? 03/02/2021 Colonoscopy Information not avai lable Vaccine List Vaccine Type COVID-19, mRNA, LNP-S, PF, 100 mcg/0.5 m L dose (Moderna) 03/18/2021 Td (adult) preservative free 08/23/2020 Social History Tobacco Smoking Status Never Smoker What is your level of alcohol consumption? None Has tobacco cessation counseling been provided? Y On what date was tobacco cessation counseling provided? 05/2021 What was the date of your most recent tobacco screening? 05/2021 Do you or have you ever used any other forms of tobacco or n icotine? N What is your level of caffeine consumption? Moderate Do you use any illicit or recreational drugs? N Functional Status Unknown. Past Encounters 11/28/2021 Retention of Urine Keagan Wallace MD: [address] [place] [phone], Ph. 11/02/2021 Prostate Nodule; Recurrent Urinary Tract Infection; Prostatitis Keagan Wallace MD: [address] [place] [address], [address] [phone], Ph. 11/02/2021 Raised Prostate Specific Antigen Keagan Wallace MD: [address] [place] [address], [address] [phone], Ph. History of Present Illness None recorded. Review of Systems None recorded. Physical Exam None recorded.
--- OUTSIDE RECORDS SUMMARY | 2021-12-01 11:21 | XMS_ITS | Encounter Summary ---
:1950 Author Care Team Providers Name Role Phone Estela Elaine MD Primary Care Provider [phone] Reason for Visit Injection Assessment and Plan 1. Raised prostate specific antigen ? ceftriaxone 1 gram solution for injec tion Discussion Note: None recorded.Patient educational handouts: No information available. Plan of Care Reminders Provider Appointments None recorded. ? ? Lab None recorded. ? ? Referral None recorded. ? ? Procedures None [...] BY MOUTH TWICE A DAY Medications Administered Name Date ? ? ceftriaxone 1 gram solution for injection 2021-11-02 T11:13:18 Take 1 g by injection route. Vitals None recorded. Results Lab Results None recorded. Allergies None recorded. Problems None recorded. Procedures [...] drugs? N Functional Status Unknown. Past Encounters 11/02/2021 Prostate Nodule; Recurrent Urinary Tract Infection; Prostatitis Keagan Wallace MD: [address] [place] [phone], Ph. 11/02/2021 Raised Prostate Specific Antigen Keagan Wallace MD: [address] [place] [phone], Ph. 10/14/2021 Raised Prostate Specific Antigen Keagan Wallace MD: [address] [place] [phone], Ph. 10/14/2021 Urinary Tract Infectious Disease; Retent ion of Urine Keagan Wallace MD: [address] [place] [phone], Ph. History of Present Illness None recorded. Review of Systems None recorded. Physical Exam None recorded.
--- OUTSIDE RECORDS SUMMARY | 2021-12-01 11:21 | XMS_ITS | Encounter Summary ---
:1950 Author Care Team Providers Name Role Phone Estela Elaine MD Primary Care Provider [phone] Reason for Visit Lab/Nursing Visit Assessment and Plan 1. Dysuria ? urinalysis, dipstick ? culture, urine Discussion Note: None recorded.Patient educational handouts: No information available. Plan of Care Reminders Provider Appointments None recorded. ? ? Lab Urinalysis, Dipstick 09/15/2021 [facility] ? Culture, Urine 09/15/2021 [facility] Referral None [...] Interpretation Description Value Range Status Address ? 09/15/2021 Urinalysis, UR ? Color yellow yellow Final [place] [facility] [facility]: [address] [facility] [address], [place] ? ? UR ABNORMAL Appearance cloudy clear Final [place] [facility]: [address] [facility] [address], [place] ? ? UR ? Glucose negative negative Final [place] [facility] mg/dL mg/dL [facility]: [address] [address], [place] ? ? UR ? Bilirubin negative negative Final [place] [facility]: [address] [address], [place] ? ? UR ? Ketones negative negative Final [place] [facility] mg/dL mg/dL [facility]: [address] [address], [place] ? ? UR ? Sp. [place] 1.025 1.010-1.0 Final [place] [facility]: [address] [address], [place] ? ? UR ? pH -[facility] 6.0 5.0-8.0 Final [place] [facility]: [address] [address], [place] ? ? UR ABNORMAL Protein 30 mg/dL negative Final [place] [facility] mg/dL [facility]: [address] [address], [place] ? ? UR ? Urobilinogen 0.2 normal Final [place] [facility]: [address] [address], [place] ? ? UR ? Nitrites negative negative Final [place] [facility]: [address] [address], [place] ? ? UR ABNORMAL Blood moderate negative Final [place] [facility]: [address] [address], [place] ? ? UR ABNORMAL Leukocytes large negative Final [place] [facility]: [address] [address], [place] ? ? UR ? Performed by jasmyne Bustillos ? Final [facility]: [address] [address], [place] ? ? UR ? Total Urine 60 /mL ? Final [place] Volume (mL) [facility]: [address] [address], [place] 09/15/2021 Culture, UR ? Final Report microbiology ? Final [place] [facility]: [address] [address], [place] Allergies None recorded. Problems None recorded. Procedures [...] drugs? N Functional Status Unknown. Past Encounters 09/15/2021 Dysuria Keagan Wallace MD: [address] [place] [address], [address] [phone], Ph. 09/09/2021 Prostatitis; Incomplete Emptying of Blad alen; Prostate Nodule Keagan Wallace MD: [address] [place] [address], [address] [phone], Ph. History of Present Illness None recorded. Review of Systems None recorded. Physical Exam None recorded.
--- OUTSIDE RECORDS SUMMARY | 2021-12-01 11:21 | XMS_ITS ---
:1950 Author Care Team Providers Name Role Phone EILEEN ARECHIGA MD Primary Care Provider [phone] Allergies None recorded. Medications Name Status Start Date Stop Date ? ? aspirin 81 mg tablet,delayed release Active ? Not available TAKE 1 TABLET BY MOUTH EVERY DAY carvedilol 3.125 mg tablet Active ? Not a vailable TAKE 1 TABLET BY MOUTH TWICE A DAY WITH MEALS cefdinir 300 mg capsule Active ? Not avai lable TAKE 1 CAPSULE BY MOUTH TWICE A DAY FOR 7 DAYS ceftriaxone 1 gram solution for injection Active ? Not available Take 1 g by injection route. cephalexin 500 mg capsule Active ? Not av ailable TAKE 1 CAP BY MOUTH 2 TIMES DAILY FOR 10 DAYS ciprofloxacin 250 mg tablet Active ? Not available TAKE 2 TABLETS BY MOUTH 2 TIMES DAILY FOR 7 DAYS. ciprofloxacin 500 mg tablet Active ? Not available TAKE 1 TABLET TWICE A DAY Eliquis 5 mg tablet Active ? Not availabl e TAKE 1 TABLET BY MOUTH TWICE A DAY metoprolol succinate ER 25 mg tablet,extended release 24 hr Acti ve ? Not available TAKE 1 TABLET (25 MG) BY MOUTH DAILY sulfamethoxazole 800 mg-trimethoprim 160 mg tablet Active ? Not available TAKE 1 TABLET BY MOUTH TWICE A DAY Problems None recorded. Procedures Date Name Performed by ? 03/02/2021 Colonoscopy Information not avai lable Results Lab Results Date Name Specimen Result Interpretation Description Value Range Status Address ? 11/28/2021 Urinalysis, UR ? Color yellow yellow Final [place] Dipstick [facility]: [address] [address], [place] ? ? UR ABNORMA Appearance turbid clear Final [place] L -[facility]: [address] [facility] [address], [place] ? ? UR ? Glucose negative negative Final [place] [facility] mg/dL mg/dL [facility]: [address] [address], [place] ? ? UR ? Bilirubin negative negative Final [place] [facility]: [address] [facility] [address], [place] ? ? UR ? Ketones negative negative Final [place] [facility] mg/dL mg/dL [facility]: [address] [place] [address], [place] ? ? UR ? Sp. [place] <=1.005 1.010-1.0 Final [place] [facility] 25 [facility]: [address] [place] [address] ? ? UR ? pH -[facility] 5.0 5.0-8.0 Final [place] [facility]: [address] [place] [address], [place] ? ? UR ? Protein negative negative Final [place] [facility] mg/dL mg/dL [facility]: [address] [place] [address] ? ? UR ? Urobilinogen 0.2 normal Final [place] [facility]: [address] [place] [address] ? ? UR ABNORMA Nitrites positive negative Final [place] L -[facility]: [address] [place] [address] ? ? UR ABNORMA Blood moderate negative Final [place] L -[facility]: [address] [place] [address] ? ? UR ABNORMA Leukocytes large negative Final [place] -[facility]: [address] [place] [address] ? ? UR ? Performed by aida Alvares ? Final [place] [facility]: [address] [place] [address] ? ? UR ? Total Urine 20 /mL ? Final [place] Volume (mL) [facility]: [address] [place] [address] 11/28/2021 Urinalysis, ABNORMA U-WBC 50 - 100 0 - 2 Final [place] [facility] [hpf] [hpf] [facility]: [address] [place] [address] ? ? ? U-RBC 0 - 2 [hpf] 0 - 2 Final [place] [hpf] [facility]: [address] [place] [address] ? ? ABNORMA Bacteria large [hpf] negative Final [place] L [hpf] [facility]: [address] [place] [address] ? ? ? Squamous Epi small /lpf negative, Fin al [place] small [facility] - /lpf [facility]: [address], [place] 11/28/2021 Culture, UR ABNORMA Final Report microbiolog ? Final [place] Urine L y results [facility]: [address], [place] 11/02/2021 Prostate Cnb ? Report Title comment ? Final [facility] PC-only # - Syste ms: [address], [place] ? ? ? Clinical comment ? Final [facility] Information Syste ms: [address], [place] ? ? ? Specimen comment ? Final [facility] Source Systems: [address] , [place] ? ? ? Gross comment ? Final [facility] Description Syste ms: [address] , [place] ? ? ? Diagnosis comment ? Final D[facility] n Systems: [address], [place] ? ? ? Codes comment ? Final [facility] Systems: [address], [place] ? ? ? Specimen comment ? Final [facility] Source Systems: [address], [place] ? ? ? Gross comment ? Final [facility] Description Syste ms: [address], [place] ? ? ? Diagnosis comment ? Final [facility] Systems: [address], [place] ? ? ? Codes comment ? Final [facility] Systems: [address], [place] ? ? ? Specimen comment ? Final [facility] Source Systems: [address], [place] ? ? ? Gross comment ? Final [facility] Description Syste ms: [address], [place] ? ? ? Diagnosis comment ? Final D[facility] n Systems: [address], [place] ? ? ? Codes comment ? Final [facility] Systems: [address], [place] ? ? ? Specimen comment ? Final [facility] Source Systems: [address], [place] ? ? ? Gross comment ? Final [facility] Description Syste ms: [address], [place] ? ? ? Diagnosis comment ? Final D[facility] Systems: [address], [place] ? ? ? Codes comment ? Final [facility] Systems: [address], [place] ? ? ? Specimen comment ? Final [facility] Source Systems: [address], [place] ? ? ? Gross comment ? Final [facility] Description Syste ms: [address], [place] ? ? ? Diagnosis comment ? Final D[facility] n Systems: [address], [place] ? ? ? Codes comment ? Final [facility] Systems: [address], [place] ? ? ? Specimen comment ? Final [facility] Source Systems: [address], [place] ? ? ? Gross comment ? Final [facility] Description Syste ms: [address], [place] ? ? ? Diagnosis comment ? Final D[facility] Systems: [address], [place] ? ? ? Codes comment ? Final [facility] Systems: [address], [place] ? ? ? Specimen comment ? Final [facility] Source Systems: [address], [place] ? ? ? Gross comment ? Final [facility] Description Syste ms: [address], [place] ? ? ? Diagnosis comment ? Final D[facility] Systems: [address], [place] ? ? ? Codes comment ? Final [facility] Systems: [address], [place] ? ? ? Specimen comment ? Final [facility] Source Systems: [address], [place] ? ? ? Gross comment ? Final [facility] Description Syste ms: [address], [place] ? ? ? Diagnosis comment ? Final D[facility] Systems: [address], [place] ? ? ? Codes comment ? Final [facility] Systems: [address], [place] ? ? ? Specimen comment ? Final [facility] Source Systems: [address], [place] ? ? ? Gross comment ? Final [facility] Description Syste ms: [address], [place] ? ? ? Diagnosis comment ? Final D[facility] Systems: [address], [place] ? ? ? Codes comment ? Final [facility] Systems: [address], [place] ? ? ? Specimen comment ? Final [facility] Source Systems: [address], [place] ? ? ? Gross comment ? Final [facility] Description Syste ms: [address], [place] ? ? ? Diagnosis comment ? Final D[facility] Systems: [address], [place] ? ? ? Codes comment ? Final [facility] Systems: [address], [place] ? ? ? Specimen comment ? Final [facility] Source Systems: [address], [place] ? ? ? Gross comment ? Final [facility] Description Syste ms: [address], [place] ? ? ? Diagnosis comment ? Final D[facility] Systems: [address], [place] ? ? ? Codes comment ? Final [facility] Systems: [address], [place] ? ? ? Specimen comment ? Final [facility] Source Systems: [address], [place] ? ? ? Gross comment ? Final [facility] Description Syste ms: [address], [place] ? ? ? Diagnosis comment ? Final D[facility] n Systems: [address] ? ? ? Codes comment ? Final [facility] Systems: [address] ? ? ? Core Mapping comment ? Final Di anon Systems: [address] ? ? ? Case Comment comment ? Final Di anon Systems: [address] ? ? ? Pathologist comment ? Final Kiki non Systems: [address] ? ? ? TC Stain comment ? Final [facility] Table Systems: [address] ? ? ? Performing comment ? Final [facility] Systems: [address] ? ? ? Professional comment ? Final Di anon Component Systems : Performed [address] 10/14/2021 Urinalysis, UR ? Color yellow yellow Final [place] Dip[facility]: [address] ? ? UR ? Appearance clear clear Final [place] [facility]: [address] ? ? UR ? Glucose negative negative Final [place] [facility] mg/dL mg/dL [facility]: [address] ? ? UR ? Bilirubin negative negative Final [place] [facility]: [address] ? ? UR ABNORMA Ketones trace mg/dL negative Final [place] L -[facility] mg/dL [facility]: [address] ? ? UR ? Sp. [place] 1.025 1.010-1.0 Final [place] [facility]: [address] ? ? UR ? pH -[facility] 5.5 5.0-8.0 Final [place] [facility]: [address] ? ? UR ABNORMA Protein 30 mg/dL negative Final [place] L -[facility] mg/dL [facility]: [address] ? ? UR ? Urobilinogen 0.2 normal Final [place] [facility]: [address] ? ? UR ? Nitrites negative negative Final [place] [facility]: [address] [place] [address], [place] ? ? UR ABNORMA Blood large negative Final [place] L -[facility]: [address] [place] [address], [place] ? ? UR ABNORMA Leukocytes large negative Final [place] L [facility]: [address] [place] [address], [place] ? ? UR ? Performed by christie Y ? Final [place] [facility]: [address] [place] [address], [place] ? ? UR ? Total Urine 40 /mL ? Final [place] Volume (mL) [facility]: [address] [place] [address] 10/14/2021 Urinalysis, ABNORMA U-WBC packed 0 - 2 Final [place] [facility] L [hpf] [hpf] [facility]: [address] [place] [address], [place] ? ? ABNORMA U-RBC 2 - 5 [hpf] 0 - 2 [facility]: [address] [place] [address] ? ? ABNORMA Bacteria moderate negative Final [place] L [hpf] [hpf] [facility]: [address] [place] [address] ? ? ? Squamous Epi negative negative, Final [place] [facility] - /lpf [facility]: [address] [place] [address], [place] 10/14/2021 PSA, Total, BLDV ? PSA, Total 1.43 NG/mL 0.00-4 .00 Final [place] Serum or NG/mL [facility]rology - Plasma [facility]: [address] [place] [address] 10/14/2021 Culture, UR ? Final Report microbiolog ? Final [place] Urine y results [facility]: [address] [place] [address] 09/15/2021 Urinalysis, UR ? Color yellow yellow Final [place] Dipstick [facility]: [address] [place] [address] ? ? UR ABNORMA Appearance cloudy clear Final [place] L -[facility]: [address] [place] [address] ? ? UR ? Glucose negative negative Final [place] [facility] mg/dL mg/dL [facility]: [address] [place] [address] ? ? UR ? Bilirubin negative negative Final [place] [facility]: [address] [address], [place] ? ? UR ? Ketones negative negative Final [place] [facility] mg/dL mg/dL [facility]: [address] [address], [place] ? ? UR ? Sp. [place] 1.025 1.010-1.0 Final [place] [facility]: [address] [address], [place] ? ? UR ? pH -[facility] 6.0 5.0-8.0 Final [place] [facility]: [address] [address], [place] ? ? UR ABNORMA Protein 30 mg/dL negative Final [place] L -[facility] mg/dL [facility]: [address] [address], [place] ? ? UR ? Urobilinogen 0.2 normal Final [place] [facility]: [address] ? ? UR ? Nitrites negative negative Final [place] [facility]: [address] ? ? UR ABNORMA Blood moderate negative Final [place] L -[facility]: [address] [address], [place] ? ? UR ABNORMA Leukocytes large negative Final [place] L [facility]: [address] [address], [place] ? ? UR ? Performed by jasmyne Bustillos ? Final [place] [facility]: [address] ? ? UR ? Total Urine 60 /mL ? Final [place] Volume (mL) [facility]: [address] 09/15/2021 Urinalysis, ABNORMA U-WBC packed 0 - 2 Final [place] Microscopic L [hpf] [hpf] [facility]: [address] ? ? ABNORMA U-RBC 2 - 5 [hpf] 0 - 2 Final [place] L [hpf] [facility]: [address] ? ? ABNORMA Bacteria small [hpf] negative Final [place] L [hpf] [facility]: [address] [address], [place] ? ? ? Squamous Epi negative negative, Final [place] /lpf small [facility] - /lpf [facility]: [address] [address], [place] 09/15/2021 Culture, UR ? Final Report microbiolog ? Final [place] Urine y results [facility]: [address] [place] [address] 09/09/2021 Urinalysis, UR ? Color yellow yellow Final [place] Dipstick [facility]: [address] [place] [address], [place] ? ? UR ? Appearance clear clear Final [place] [facility]: [address] [place] [address] ? ? UR ? Glucose negative negative Final [place] [facility] mg/dL mg/dL [facility]: [address] [place] [address] ? ? UR ? Bilirubin negative negative Final [place] [facility]: [address] [place] [address] ? ? UR ? Ketones negative negative Final [place] [facility] mg/dL mg/dL [facility]: [address] [place] [address] ? ? UR ? Sp. [place] 1.020 1.010-1.0 Final [place] [facility]: [address] [place] [address] ? ? UR ? pH -[facility] 5.5 5.0-8.0 Final [place] [facility]: [address] ? ? UR ABNORMA Protein 30 mg/dL negative Final [place] L -[facility] mg/dL [facility]: [address] [address], [place] ? ? UR ? Urobilinogen 0.2 normal Final [place] [facility]: [address] ? ? UR ? Nitrites negative negative Final [place] [facility]: [address] [address], [place] ? ? UR ABNORMA Blood moderate negative Final [place] L [facility]: [address] ? ? UR ABNORMA Leukocytes large negative Final [place] L [facility]: [address] [address], [place] ? ? UR ? Performed by sylvester Case ? Final [place] [facility]: [address] [place] [address], [place] ? ? UR ? Total Urine 80 /mL ? Final [place] Volume (mL) [facility]: [address] [place] [address] 09/09/2021 Urinalysis, ABNORMA U-WBC 50 - 100 0 - 2 Final [place] Microscopic L [hpf] [hpf] [facility]: [address] [place] [address], [place] ? ? ? U-RBC 0 - 2 [hpf] 0 - 2 Final [place] [hpf] [facility]: [address] [place] [address], [place] ? ? ABNORMA Bacteria small [hpf] negative Final [place] L [hpf] [facility]: [address] [place] [address], [place] ? ? ? Squamous Epi small /lpf negative, Fin al [place] small [facility] - /lpf [facility]: [address] [place] [address], [place] Past Encounters 11/28/2021 Retention of Urine Keagan Wallace MD: [address] [place] [phone], Ph. 11/02/2021 Prostate Nodule; Recurrent Urinary Tract Infection; Prostatitis Keagan Wallace MD: [address] [place] [phone], Ph. 11/02/2021 Raised Prostate Specific Antigen Keagan Wallace MD: [address] [place] [phone], Ph. 10/14/2021 Urinary Tract Infectious Disease; Retent ion of Urine Keagan Wallace MD: [address] [place] [phone], Ph. 10/14/2021 Raised Prostate Specific Antigen Keagan Wallace MD: [address] [place] [phone], Ph. 09/15/2021 Dysuria Keagan Wallace MD: [address] [place] [phone], Ph. 09/09/2021 Prostatitis; Incomplete Emptying of Blad alen; Prostate Nodule Keagan Wallace MD: [address] [facility], [address], [place] [phone], Ph. Social History Tobacco Smoking Status Never Smoker Vaccine List Vaccine Type COVID-19, mRNA, LNP-S, PF, 100 mcg/0.5 m L dose (Moderna) 03/18/2021 Td (adult) preservative free 08/23/2020 Plan of Care Reminders Provider Appointments None recorded. ? ? Lab None recorded. ? ? Referral None recorded. ? ? Procedures None recorded. ? ? Surgeries None recorded. ? ? Imaging None recorded. ? ? Vitals 11/02/2021 11:45AM TRUS w/Biopsy 15 Height Weight BMI 5 ft 11 in 200 lbs 27.9 kg/m2 10/14/2021 11:00AM PROCEDURE 15 Height 5 ft 11 in 09/09/2021 01:15PM NEW PATIENT 15 Height Weight BMI 5 ft 11 in 200 lbs 27.9 kg/m2
--- OUTSIDE RECORDS SUMMARY | 2021-12-01 11:21 | XMS_ITS | Encounter Summary ---
:1950 Author Care Team Providers Name Role Phone Estela Elaine MD Primary Care Provider [phone] Reason for Visit Nurse Visit: Bladder Scan Assessment and Plan 1. Urinary tract infectious disease ? urinalysis, dipstick ? culture, urine 2. Retention of urine Discussion Note: None recorded.Patient educational handouts: No information available. Plan of Care Reminders Provider Appointments None recorded. ? ? Lab Urinalysis, Dipstick 10/14/2021 [facility] ? Culture, Urine 10/14/2021 [place] [facility] Referral None [...] A DAY Medications Administered None recorded. Vitals Height 5 ft 11 in Results Lab Results Date Name Specimen Result Interpretation Description Value Range Status Address ? 10/14/2021 Urinalysis, UR ? Color yellow yellow Final [place] [facility]: [address] [facility] [address], [place] ? ? UR ? Appearance clear clear Final [place] [facility]: [address] [facility] [address], [place] ? ? UR ? Glucose negative negative Final [place] [facility] mg/dL mg/dL [facility]: [address] [address], [place] ? ? UR ? Bilirubin negative negative Final [place] [facility]: [address] [facility] [address], [place] ? ? UR ABNORMAL Ketones trace mg/dL negative Final [place] [facility] mg/dL [facility]: [address] [address], [place] ? ? UR ? Sp. [place] 1.025 1.010-1.0 Final [place] [facility]: [address] [address], [place] ? ? UR ? pH -[facility] 5.5 5.0-8.0 Final [place] [facility]: [address] [address], [place] ? ? UR ABNORMAL Protein 30 mg/dL negative Final [place] [facility] mg/dL [facility]: [address] [address], [place] ? ? UR ? Urobilinogen 0.2 normal Final [place] [facility]: [address] [address], [place] ? ? UR ? Nitrites negative negative Final [place] [facility]: [address] [address], [place] ? ? UR ABNORMAL Blood large negative Final [place] [facility]: [address] [address], [place] ? ? UR ABNORMAL Leukocytes large negative [place] [facility]: [address] [address], [place] ? ? UR ? Performed by christie Fabian ? Final [place] [facility]: [address] [address], [place] ? ? UR ? Total Urine 40 /mL ? Final [place] Volume (mL) [facility]: [address] [address], [place] 10/14/2021 Culture, UR ? Final Report microbiology ? Final [place] Urine results [facility]: [address] [address], [place] Allergies None recorded. Problems None recorded. Procedures [...] drugs? N Functional Status Unknown. Past Encounters 10/14/2021 Urinary Tract Infectious Disease; Retent ion of Urine Keagan Wallace MD: [address] [place] [phone], Ph. 10/14/2021 Raised Prostate Specific Antigen Keagan Wallace MD: [address] [place] [phone], Ph. 09/15/2021 Dysuria Keagan Wallace MD: [address] [place] [address], [address] [phone], Ph. History of Present Illness None recorded. Review of Systems None recorded. Physical Exam None recorded.
--- OUTSIDE RECORDS SUMMARY | 2021-12-01 11:21 | XMS_ITS | Encounter Summary ---
:1950 Author Care Team Providers Name Role Phone Estela Elaine MD Primary Care Provider [phone] Reason for Visit Lab/Nursing Visit Assessment and Plan 1. Raised prostate specific antigen ? PSA, total, serum or plasma Discussion Note: None recorded.Patient educational handouts: No information available. Plan of Care Reminders Provider Appointments None recorded. ? ? Lab PSA, Total, Serum or 10/14/2021 [facility] Referral None recorded. ? ? Procedures [...] Description Value Range Status Address ? 10/14/2021 PSA, BLDV ? PSA, 1.43 0.00-4.00 Final [place] Total, Total NG/mL NG/mL [facility] - Serum or [facility]: Plasma [address], [place] Allergies None recorded. Problems None recorded. Procedures [...] ion of Urine Keagan Wallace MD: [address] [place] [phone], Ph. 10/14/2021 Raised Prostate Specific Antigen Keagan Wallace MD: [address] [place] [address], [address] [phone], Ph. 09/15/2021 Dysuria Keagan Wallace MD: [address] [place] [address], [address] [phone], Ph. History of Present Illness None recorded. Review of Systems None recorded. Physical Exam None recorded.
--- OUTSIDE RECORDS SUMMARY | 2021-12-01 11:21 | XMS_ITS | Encounter Summary ---
:1950 Author Care Team Providers Name Role Phone Estela Elaine MD Primary Care Provider [phone] Reason for Visit TRUS biopsy Assessment and Plan Assessment Note 71 year old male here for prostate biop sy. 1. Prostate nodule ? biopsy, prostate 2. Recurrent urinary tract infection 3. Prostatitis Discussion Note Prostate Nodule: The patient tolerated the procedure well . We discussed that he can expect to have blood coating the stool for a few days, pink or reddish urine which may be normal, and rust colored ejaculate for up to one month. We discussed important warning signs suc h as fevers >100.4 which may be indicative of sepsis, worsening blood in the urine with clots and urinary retention, or worsening blood per rectum. In each oth er these circumstances he should contact the office immediately or go to the Emergency Department. He will be contacted with the results of his biopsy. If he does not receive these results within 5-7 business days he should contact our office. Patient educational handouts: No information available. Plan of Care Reminders Provider Appointments None recorded. ? ? Lab Biopsy, Prostate 11/02/2021 [facility] Lab Referral None recorded. ? ? Procedures [...] DAY Medications Administered None recorded. Vitals Height Weight BMI 5 ft 11 in 200 lbs 27.9 kg/m2 Results Lab Results None recorded. Allergies None [...] Urinary Tract Infection; Prostatitis Keagan Wallace MD: [address] [place] [phone], Ph. 11/02/2021 [place] Prostate Specific Antigen Keagan Wallace MD: [address] [place] [phone], Ph. 10/14/2021 Raised Prostate Specific Antigen Keagan Wallace MD: [address] [place] [phone], Ph. 10/14/2021 Urinary Tract Infectious Disease; Retent ion of Urine Keagan Wallace MD: [address] [place] [phone], Ph. History of Present Illness Note: <div>This is a 71 year old male with a history of lower urinary tract symptoms, recurrent episodes of prostatitis, and a prostate nodule who is here for prostate biopsy.</div><div>
</div><div>He has struggled with worsening obstructive and irritative voiding symptoms for more than 10 years.</div><div>He has a history of prostatitis in the early 2009's which required a course of antibiotic therapy.</div><div>He presented to Dr. Crum for the evaluation of worsening irritative voiding symptoms, cloudy urine, sensation of incomplete emptying, and dysuria in May.</div><div>Examination revealed a prostate nodule as well as signs of acute bacterial prostatitis.</div><div>He was treated with a course of Bactrim DS for 3 weeks.</div><div>On examination 09/09/2021 he was again felt to have a grossly abnormal exam worrisome for malignancy.</div><div>His prostate specific antigen post-treatment of his prostatitis episode was 1.43 ng/mL (10/14/2021).</div><div>He is here today for prostate biopsy.</div> Review of Systems ? Comprehensive General Adult ROS Reported By: Patient Constitutional: Constitutional: no fever, no chills Eyes: Eyes: no dry eyes, no vision change, no irritation Endocrine: Endocrine: no fatigue, no in creased thirst Cardiovascular: Cardiovascular: no chest vasiliy n, no palpitations Integumentary: Skin: no rashes, no change i n skin color Respiratory: Respiratory: no wheezing, no cough, no shortness of breath Gastrointestinal: Gastrointestinal: no abdomin al pain, no nausea, no vomiting, no constipation, no GERD Musculoskeletal: Musculoskeletal: no neck vasiliy n, no back pain Neurologic: Neurologic: no tremor, no di zziness, no numbness, no headaches Genitourinary: Genitourinary: no incontinen ce, no difficulty urinating ENMT: Ears: no ear pain. Mouth/Thr oat: no sore throat Allergic/Immunologic: Allergy/Immunologic: no itch ing, no hives Hematologic/Lymphatic: Hematologic/Lymphatic no swo llen glands, no excessive bleeding Psychiatric: Psych: no hallucinations, (n ormal) sleep disturbances: mismatch of sleep / wake rad edule with lifestyle needs Physical Exam ? Notes: <div>General: Well nourished . Appears in good health. No acute distress.</div><div>Neuro: A wake, alert, and oriented x 3. No focal neurologic signs. Motor function and se nsation grossly intact.</div><div>Psych: Mood is appropriate. Good judgement. </div><div>Lungs: No dyspnea.</div><div>Abdomen: Obese, soft, not distended</ div><div>Genitalia: Hypospadiac meatus at the coronal sulcus. No lesions. Scrotum is healthy and well developed. The testis are down. There are no dania s. There is no tenderness. The vasa are palpable bilaterally. Mild bilateral varicoceles.</div><div>Digital rectal examination: firm 1.5 cm nodule occupying the left half of the prostate, total prostate volume is approximately 35 m L, consistency is normal on the right.</div><div>Extremities : Warm and well perfused. Moves all four extremities equally.</div><d iv>Skin: No edema.</div>
--- OUTSIDE RECORDS SUMMARY | 2021-12-01 11:21 | XMS_ITS | Encounter Summary ---
:1950 Author Care Team Providers Name Role Phone Estela Elaine MD Primary Care Provider [phone] Reason for Visit New Patient Visit; Prostate Problems Assessment and Plan Assessment Note 71 year old male with benign prostatic hyperplasia with lower urinary tract symptoms, a recent episode of prostatiti s, and a prostate nodule. 1. Prostatitis 2. Incomplete emptying of bladder ? urinalysis, dipstick 3. Prostate nodule ? ciprofloxacin 500 mg tablet ? prostate specific Ag, serum or plasma Discussion Note Prostate Nodule/Obstructive Urinary Sym ptoms: I am quite concerned by his examination. I suspect he harbors a prostate cancer w hich is causing outlet obstruction and predisposing him to infection. I recommend he undergo a transrectal ult rasound guided prostate biopsy. We discussed the risks and benefits of t he procedure including infection and bleeding. Check prostate specific antigen today. He is willing to proceed. Patient educational handouts: No information available. Plan of Care Reminders Provider Appointments None recorded. ? ? Lab Urinalysis, Dipstick 09/09/2021 [facility] Lab ? Prostate Specific Ag, 09/09/2021 [facility] [place] Serum or Plasma Lab Referral None recorded. ? ? [...] 200 lbs 27.9 kg/m2 Results Lab Results Date Name Specimen Result Interpretation Description Value Range Status Address ? 09/09/2021 Urinalysis, UR ? Color yellow yellow Final [place] Dipstick -[facility]: [address] ? ? UR ? Appearance clear clear Final [place] [facility]: [address] [address], [place] ? ? UR ? Glucose negative negative Final [place] [facility] mg/dL mg/dL [facility]: [address] ? ? UR ? Bilirubin negative negative Final [place] [facility]: [address] [address], [place] ? ? UR ? Ketones negative negative Final [place] [facility] mg/dL mg/dL [facility]: [address] [address], [place] ? ? UR ? Sp. [place] 1.020 1.010-1.0 Final [place] [facility]: [address] ? ? UR ? pH -[facility] 5.5 5.0-8.0 Final [place] [facility]: [address] [address], [place] ? ? UR ABNORMAL Protein 30 mg/dL negative Final [place] [facility] mg/dL [facility]: [address] [address], [place] ? ? UR ? Urobilinogen 0.2 normal Final [place] [facility]: [address] [address], [place] ? ? UR ? Nitrites negative negative Final [place] [facility]: [address] [address], [place] ? ? UR ABNORMAL Blood moderate negative Final [place] [facility]: [address] [address], [place] ? ? UR ABNORMAL Leukocytes large negative Final [place] [facility]: [address] [address], [place] ? ? UR ? Performed by sylvester W ? Final [place] [facility]: [address] [facility] [address], [place] ? ? UR ? Total Urine 80 /mL ? Final [place] Volume (mL) [facility]: [address] [facility] [address], [place] Allergies None recorded. Problems None recorded. Procedures [...] drugs? N Functional Status Unknown. Past Encounters 09/09/2021 Prostatitis; Incomplete Emptying of Blad alen; Prostate Nodule Keagan Wallace MD: [address] [facility], [address], [place] [address], Ph. History of Present Illness Note: <div>This is a 71 year old male who is referred by Dr. Benton for the evaluation and management of benign prostatic hyperplasia with lower urinary tract symptoms, a recent episode of prostatitis, and a prostate nodule.</div><div>
</div><div>He has struggled with worsening obstructive and irritative voiding symptoms for more than 10 years.</div><div>He has a history of prostatitis in the early 2009' which required a course of antibiotic therapy.</div><div>He presented to Dr. Crum for the evaluation of worsening irritative voiding symptoms, cloudy urine, sensation of incomplete emptying, and dysuria in May.</div><div>Examination revealed a prostate nodule as well as signs of acute bacterial prostatitis.</div><div>He was treated with a course of Bactrim DS for 3 weeks.</div><div>His symptoms are improved since completing his antibiotics.</div><div>He denies gross hematuria.</div> Review of Systems None recorded. Physical Exam ? Notes: <div>General: Well nourished [...]
--- NOTE | 2021-12-01 11:52 | ED.NURSE ---
Urine collected from catheter. Outside records were received after collecting. Sample discarded per .
--- NOTE | 2021-12-01 12:37 | ED.NURSE ---
Linezolid PO not covered by insurance. Will be $1700.00. Notified .
--- NOTE | 2021-12-01 13:00 | ED.NURSE ---
Changed leg bag as current leg bag had a whole in it. Patient very thankful for this.
[2021-12-01] MEDS: LINEZOLID 600 MG TABLET PO (14:27)
--- NOTE | 2021-12-01 14:35 | ED.NURSE ---
Patient discharged. Prior Authorization was started on Linezolid but it is going to take a few days. [facility] had a coupon for [facility] for $35 for 14 tabs. Patient stated he can afford this medication. Prescription was [facility] to [facility] [place] ([facility]est [facility] that is in stock). Patient and patients very appreciative of the care here. Discharge instructions reviewed with patient. Patient left via ambulatory.
== END 2021-12-01 14:35 | disposition home or self-care (01) ==
PROVIDERS: Emergency Provider Family Medicine; PCP Family Medicine
DX: N39.0 Urinary tract infection, site not specified (principal); B95.7 Other staphylococcus as the cause of diseases classified elsewhere; B96.89 Other specified bacterial agents as the cause of diseases classified elsewhere; Z16.24 Resistance to multiple antibiotics
CPT/HCPCS: 99283; A9270

== ENCOUNTER 2022-01-04 07:32 | Outpatient (CLI) | payer MEDICARE, SELFPAY ==
--- OUTSIDE RECORDS SUMMARY | 2022-01-05 09:56 | XMS_ITS | Encounter Summary ---
:1950 Author Organization [place] Address [facility] [place] [address] Care Team Providers Name Role Phone No Ref-Primary, Physician Primary Care Provider [phone] Lino Radford DO Unavailable Reason for Referral (Routine) - Closed Specialty Diagnoses / Procedures Referred By Contact Refer red To Contact Diagnoses Chronic atrial fibrillation (H) Wilian Turner MD [address] [place] [address] Referral ID Status Reason Start Date Expiration Date Visits Requ ested Visits Authorized [id number] Closed 09/01/2020 09/01/2021 1 1 V Testing (Routine) - Closed Specialty Diagnoses / Procedures Referred By Contact Refer red To Contact Cardiology Diagnoses Chronic atrial fibrillation (H) Wilian Turner, [facility] Procedures Leadless sales promotion manager 3 to 7 Days ZZHC EXT ECG > 48HR TO 21 DAY RCRD W/CONECT INTL RCRD ZZC EXT ECG > 48HR TO 21 DAY REVIEW AND INTERPRETATN [place] EXT ECG > 48HR TO 21 DAY RCRD W/CONECT INTL CRUZ HO[place] [address] [place] EXT ECG > 48HR TO 21 DAY REVIEW AND INTERPRETATN HC EXT ECG > 48HR TO 21 DAY RCRD W/CONECT INTL RCRD [address] [place] [address] [place] [address] [place] [phone] Referral ID Status Reason Start Date Expiration Date Visits Requ ested Visits Authorized [id number] Closed 09/01/2020 09/01/2021 1 1 V Testing [...] ZZHC STATISTIC IV PUSH SINGLE INITIAL SUBSTANCE [place] ECHO MYOCARD BX [place] INJECTION, PERFLUTREN LIPID MICROSPHERES, PER ML [place] TTE W/DOPPLER, COMPLETE [address] [place] IV PUSH SINGLE, INITIAL S UBSTANCE [place] TTE W/DOPPLER, COMPLETE [place] TTE W/DOPPLER, COMPLETE HC US GUIDE FOR PERICARDIOCENTESIS HC ECHO MYOCARD BX HC IV PUSH SINGLE, INITIAL SUBSTANCE HC STATISTIC IV PUSH SINGLE INITIAL SUBSTANCE [address] HC ECHO COMPLETE W DOPPLER W CONTRAST HC ECHO COMPLETE W DOPPLER W/O CONTRAST [place] [address] [place] [phone] Referral ID Status Reason Start Date Expiration Date Visits Requ ested Visits Authorized [id number] Closed 09/01/2020 09/01/2021 1 1 Reason for Visit Reason Comments New Patient A-fib CV Cardio consult (Routine) - Closed Specialty Diagnoses / Procedures Referred By Contact Refer red To Contact Cardiovascular Disease Diagnoses Chronic atrial fibrillation (H) Lino Radford DO [facility] [address] [address] [place] [address] [address] [place] [address] Phone: Fax: Referral ID Status Reason Start Date Expiration Date Visits Requ ested Visits Authorized [id number] Closed 08/23/2020 08/23/2021 1 1 Encounter Details Date Type Department Care Team Description 09/01/2020 Office Visit [facility] [place] [address] [place] [address] Chronic atrial Heart Clinic Wilian Patel MD [address] [facility] [address] [place] [id number] fibrillation (H) [address] [facility] [address] [place] [phone] Social History Tobacco Use Types Packs/Day Years Used Date Former Smoker Cigarettes 2 20 04/02/1971 - 0 04/02/1991 Smokeless Tobacco: Never Used Alcohol Use Standard Drinks/Week Comments Yes 0 (1 standard drink = 0.6 oz pure alcoho l) [facility] Alcohol Habits Answer Date Recorded How often [...] of atrial fibrillation. Patient recently moved from [place] to [place]. He was told in the past that he had A. fib, however he denies actually having any physical back in [place]. Here, he was evaluated by PCP and [...] on phone: None Gets together: None Attends sikhism service: None Active member of club or organization: None Attends meetings of clubs or organizations: None Relationship status: None ??? Intimate partner violence Fear of current or ex partner: None Emotionally abused: None Physically abused: None Forced sexual activity: None Other Topics Concern ??? Parent/sibling w/ CABG, CT or angioplasty before 65F 55M? 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 documented in this encounter Results LEADLESS WELDER MANUFACTURE APPLICATION AND INTERPRETATION 3 TO 7 DAY [...] PM CDT Narrative 09/29/2020 2:20 PM CDT [id number] [facility] [id number]^YUE^WILIAN^TJ [facility] [address] [facility] [address] [place] [address] Name: MARLON BENTON : 1950 Study Date: 09/29/2020 12:50 PM Age: 70 yrs Gender: Male Patient Location: [facility] Reason For Study: Chronic atrial fibrill ation (H) Ordering Physician: WILIAN TURNER Referring Physician: WILIAN TURNER Performed By: Silvia Rubio BSA: 2.3 m2 Height: 71 in Weight: 243 lb HR: 112 BP: 120/82 mmHg Procedure Complete Echo Adult. Breanna ([facility] #[id number]) given intravenously. Interpretation Summary The left ventricle [...] Procedure Note Odessa Aguila MD - 09/29/2020 [id number]^YUE^WIILAN^TJ [facility] [address] [facility] [address] [place] [address] Name: MARLON BENTON : 1950 Study Date: 09/29/2020 12:50 PM Age: 70 yrs Gender: Male Patient Location: [facility] Reason For Study: Chronic atrial fibrill ation (H) Ordering Physician: WILIAN TURNER Referring Physician: WILIAN TURNER Performed By: Silvia Rubio BSA: 2.3 m2 Height: 71 in Weight: 243 lb HR: 112 BP: 120/82 mmHg Procedure Complete Echo Adult. Optison ([facility] #[id number]) given intravenously. Interpretation Summary The left ventricle [...] fibrillation documented in this encounter Care Teams Rest Room Matron Relationship Specialty Start Date End Date No Ref-Primary, Physician PCP - General 07/15/20 Lino Radford DO Assigned PCP 08/26/20 [address] [place] [address] documented as of this encounter
--- OUTSIDE RECORDS SUMMARY | 2022-01-05 09:56 | XMS_ITS | Encounter Summary ---
:1950 Author Organization [place] Address [address] [place] [address] Care Team Providers Name Role Phone No Ref-Primary, Physician Primary Care Provider [phone] Lino Radford DO Unavailable Wilian Castañeda MD Unavailable Encounter Details Date Type Department Care Team Description 12/02/[address] [facility] Scan, CLINIC REFERRAL Health Info [facility] Non-Provider [facility] [address] [place] [phone] Social History Tobacco Use Types Packs/Day [...] on filedocumented in this encounter Care Teams Paperboard Boxes Estimator Relationship Specialty Start Date End Date No Ref-Primary, Physician PCP - General 07/15/20 Lino Radford DO Assigned PCP 08/26/20 [address] [place], [place] [id number] Wilain Castañeda MD Assigned Heart and Vascular 09/12/20 [address] Provider [address] [place] [id number] documented as of this encounter
--- OUTSIDE RECORDS SUMMARY | 2022-01-05 09:56 | XMS_ITS | Encounter Summary ---
:1950 Author Organization [facility] Address [address] [place] [address]. [place] [address] Care Team Providers Name Role Phone No Ref-Primary, Physician Primary Care Provider [phone] Savanah Gaming PA-C Unavailable [phone] Reason for Referral CV Cardio consult (Routine) - Closed Specialty Diagnoses / Procedures Referred By Contact Refer red To Contact Cardiovascular Disease Diagnoses Chronic atrial fibrillation (H) Lino Radford DO [facility] [address] [place], [place] [address] [address] [place] [address] [address] [place] [address] Phone: Fax: Referral ID Status Reason Start Date Expiration Date Visits Requ ested Visits Authorized [id number] Closed 08/23/2020 08/23/2021 1 1 Reason for Visit Reason Comments Urgent Care f/u Atrial Fib Encounter Details Date Type Department Care Team Description 08/23/2020 Office Visit [facility] Lino Radford, Chronic atrial fibrillation (H); Clinic [facility] Screening for hyperlipidemia; [address] [facility] [address] [facility]; [place] Need for Td v accine [phone] Social History Tobacco Use Types Packs/Day Years [...] out. I will review you studies via eyeQ. Someone should be calling you over the next 2 days regarding the referral. Thank you for choosing [facility] today for your health care needs. [facility] primary care At [facility], we???re constantly working to improve how we serve our patients and communities. We???re currently making changes to the way we deliver care. Most of the work is behind the scenes, but you???ll benefit from our efforts to make it easier and more convenient to stay connected to [facility] and your care team to maintain your optimal health. Benefits of a primary care provider If you don???t have a designated primary care provider yet, we encourage you to get to know our careteam online, and find a provider you???d like to see. Most of our providers have a short video on their online provider page. Visit [email or web address] to explore our providers and locations. Benefits [...] to your health records and care team eyeQ is our online tool that makes it easy to see your health care information and communicate with your care team. eyeQ allows you to: ??? View your health maintenance plan so you know when you???re due for a preventive screening ??? Send secure messages to your care team ??? View your health history and visit summaries ??? Schedule appointments ??? Complete questionnaires and eCheck-in before appointments ??? Get care from your provider with an e-visit ??? View and pay your bill Sign up at [email or web address]. Once you have an account, you also [...] your medication, an E-visit is completed through eyeQ and your provider will respond within one business day. In-person ??? Clinic appointments: Schedule an appointment at a clinic close to you anytime online at [facility] or call [facility]. Urgent Care: Visit one of our Urgent Care locations throughout the [facility]. View locations and estimated wait times at [email or web address]. Patient Education Understanding Atrial Fibrillation ?? An [...] reviewed this educational content on 07/01/2018 ?? [phone] The amprice. All rights reserved. This information is not [...] should cut out caffeine. ?? Don't take jalw-jhu-hejaetj medicines that have caffeine in them. Also avoid medicines with pseudoephedrine. ?? Let your doctor know what medicines you take, including prescription and gmgf-llf-rordype medicines, as well as any supplements. They [...] your heartbeat, or an unusually fast heartbeat mSchool last reviewed this educational content on 07/31/2018 ?? [phone] The amprice. All rights reserved. This information is not [...] following health issues HPI ED/UC Followup: Facility: [facility] Date of visit: 08/09/20 Reason for visit: lightheadedness Current Status: stable- wants to schedule heart test Review of Systems Patient is seen for primary reason of wanting a referral to cardiology to address his atrial fibrillation. He states he has had atrial fibrillation in the past prior to moving to [place] from [place]. He is unsure exactly what it was called, but may have been paroxysmal atrial fibrillation. He tried to go for a walk a couple days ago, and he got dizzy, so he decided he needed to get his Afib treated. On my calculation during exam, he scores a 1 on [id number] risk stratification. Considering this, I told him [...] (Td) documented in this encounter Care Teams Financial Engineer Relationship Specialty Start Date End Date No Ref-Primary, Physician PCP - General 07/15/20 Savanah Gaming PA-C Assigned PCP 06/24/20 08/25/20 [address] [place] [address] documented as of this encounter
--- OUTSIDE RECORDS SUMMARY | 2022-01-05 09:56 | XMS_ITS | Encounter Summary ---
:1950 Author Organization [place] Address [address] [place] [address] Care Team Providers Name Role Phone No Ref-Primary, Physician Primary Care Provider Lino Radford DO Unavailable Wilian Castañeda MD Unavailable Justine Laurent PA-C Unavailable [phone] Encounter Details Date Type Department Care [...] on filedocumented in this encounter Care Teams Quality Control Assistant Relationship Specialty Start Date End Date No Ref-Primary, Physician PCP - General 07/15/20 Lino Radford DO Assigned PCP 08/26/20 [address] [place] [address] Wilian Castañeda MD Assigned Heart and Vascular 09/12/20 [address] Provider [address] [place] [address] Justine Laurent, Assigned Surgical Provider 01/02/21 [place] [address] [place] [address] documented as of this encounter
--- OUTSIDE RECORDS SUMMARY | 2022-01-05 09:56 | XMS_ITS | Encounter Summary ---
:1950 Author Organization [place] Address [facility] [place] [address] Care Team Providers Name Role Phone No Ref-Primary, Physician Primary Care Provider [phone] Lino Radford DO Unavailable Wilian Castañeda MD Unavailable Reason for Referral (Routine) - Closed Specialty Diagnoses / Procedures Referred By Contact Refer red To Contact Diagnoses Chronic atrial fibrillation (H) Wilian Castañeda MD Procedures Cardioversion [address] [place] [address] Referral ID Status Reason Start Date Expiration Date Visits Requ ested Visits Authorized [id number] Closed 10/27/2020 10/27/2021 1 1 Reason for Visit Reason Comments FU Cardiac testing echo, ZPatch (Routine) - Closed Specialty Diagnoses / Procedures Referred By Contact Refer red To Contact Diagnoses Chronic atrial fibrillation (H) Wilian Castañeda MD [address] [place] [address] Referral ID Status Reason Start Date Expiration Date Visits Requ ested Visits Authorized [id number] Closed 09/01/2020 09/01/2021 1 1 Encounter Details Date Type Department Care Team Description 10/27/2020 Office Visit [facility] Wilian Castañeda Chronic atrial [facility] Lizzy Mcintosh MD fibrillation (H) [address] [facility] [address] [place] [address] [place] [address] [phone] Social History Tobacco Use Types Packs/Day Years [...] for evaluation. ?? Patient recently moved from [place] to [place]. He was told in the past that he had A. fib, however he denies actually having any physical back in [place]. Here [place], he establish care with PCP and was [...] I favor at least an attempt of anabaptism of normal rhythm. As he is intolerant [...] Other Topics Concern ??? Parent/sibling w/ CABG, [place] or angioplasty before 65F 55M? Not Asked [...] Gatherings with Friends and Family: ??? Attends Judaism Services: ??? Active Member of Clubs or [...] [address] [place] [address] documented in this encounter Plan of Treatment Scheduled Orders Name Type Priority Associated Diagnoses Order S chedule Cardioversion Electrophysiology Routine Chronic atrial Expecte d: 11/27/2020 fibrillation (H) (Approximat e), Expires: 2021 documented as of this encounter Visit Diagnoses Diagnosis Chronic atrial fibrillation (H) Atrial fibrillation documented in this encounter Care Teams Web Site Specialist Relationship Specialty Start Date End Date No Ref-Primary, Physician PCP - General 07/15/20 Lino Radford DO Assigned PCP 08/26/20 [address] [place], [place] [address] Wilian Castañeda MD Assigned Heart and Vascular 09/12/20 [address] Provider [address] [place] [address] documented as of this encounter
--- OUTSIDE RECORDS SUMMARY | 2022-01-05 09:56 | XMS_ITS | Encounter Summary ---
:1950 Author Organization [facility] Address [address] [place] [address] Care Team Providers Name Role Phone No Ref-Primary, Physician Primary Care Provider [phone] Lino Radford DO Unavailable Wilian Castañeda MD Unavailable Reason for Visit Reason Comments Hematuria Encounter Details Date Type Department Care Team Description 11/04/2020 Emergency [facility] Silvio Garcia PA-C EMERGENCY PHYS.PA [address] [place] [address] Urinary tract [facility] Lowell Ramos APRN [facility] [address] [place], [place] [id number] infection [address] [place] [address] Social History Tobacco Use Types Packs/Day Years [...] through Care Everywhere. Bladder Infection, Male (Adult) (Albanian)documented in this encounter Medications at Time of [...] the hematuria began on 10/27/20 after his hvac r tech prescribed him Eliquis and Coreg for an upcoming cardioversion at the end of October. He reports that the blood in his urine has increased everyday since starting his medications. He notes that his hvac r tech's nurse was concerned for a UTI, so he presented to a [facility] that directed him here to [...] contact Emergency Department Course Laboratory: UA: Color: [place](A), Appearance: Cloudy(A), Blood: Large(A), Protein Albumin: 70(A), [...] checked for urinary tract infection by his hvac r tech's nurse. His examination shows no physical findings. [...] to me. Lowell Ramos APRN CNP 11/04/20 5182 documented in this encounter Plan of Treatment [...] (ABNORMAL) Urine Culture (11/04/2020 3:56 PM CDT) [facility] Method Time Signature Culture >100,000 CFU/mL ADRIANA 11/08/2020 [facility] IDD Aerococcus 10:55 AM CDT LABORATORY urinae (A) Specimen Anatomical Collection Method Collection Time Receive d Time (Source) Location / / Volume Laterality Urine MID-STREAM URINE Non-blood 11/04/2020 3:56 PM 11/04 4:36 SPECIMEN / Unknown Collection / CDT PM CDT [...] Code Phon e Number [facility] IDD LABORATORY [facility] [place] [id number] Diag. Lab [address] [facility], [address] UU IDD LABORATORY [facility] Infectious [place], [place] [phone] Diseases Diagnostic [id number], [facility] Lab (IDDL) [address] [facility], Room [address]297 (ABNORMAL) UA with Microscopic reflex to Culture (11/04/2020 3:56 PM CDT) [facility] Method Time Signature Color Urine [place] (A) Colorless, 11/04/2020 [facility]AT[facility] Straw, 4:37 PM CDT Light Yellow, Yellow Appearance Urine Cloudy (A) Clear 11/04/2020 [facility] LABORATO RY 4:37 PM CDT Glucose Urine Negative Negative 11/04/2020 LABORATORY mg/dL 4:37 PM CDT Bilirubin Urine Negative Negative 11/04/2020 [facility] 4:37 PM CDT Ketones Urine Negative Negative 11/04/2020 [facility]AT[facility] mg/dL 4:37 PM CDT Specific [place] 1.019 1.003 - 11/04/2020 [facility] LABORATOR Y [...] URINE Non-blood 11/04/2020 3:56 PM 11/04 4:05 SPECIMEN / Unknown Collection / CDT PM CDT Unknown Narrative [facility]AT[facility] - 11/04/2020 4:37 PM CDT Urine Culture ordered based on laborator y criteria Violet Garcia PA-C LAB - URINE ORDERABLES Performing Organization Address City/State/ZIP Code [place] [address] Care Lab [address] [...] Infection documented in this encounter Care Teams Casino Investigator Relationship Specialty Start Date End Date No Ref-Primary, Physician PCP - General 07/15/20 Lino Radford DO Assigned PCP 08/26/20 [address] [place], [place] [id number] Wilian Castañeda MD Assigned Heart and Vascular 09/12/20 [address] Provider [address] [place], [place] [address] documented as of this encounter
--- OUTSIDE RECORDS SUMMARY | 2022-01-05 09:56 | XMS_ITS | Encounter Summary ---
:1950 Author Organization [place] Address [address] [place] [address] Care Team Providers Name Role Phone No Ref-Primary, Physician Primary Care Provider [phone] Lino Radford DO Unavailable Wilian Castañeda MD [...] on filedocumented in this encounter Care Teams Triage Nurse Relationship Specialty Start Date End Date No Ref-Primary, Physician PCP - General 07/15/20 Lino Radford DO Assigned PCP 08/26/20 [address] [place] [address] Wilian Castañeda MD Assigned Heart and Vascular 09/12/20 [address] [facility] Provider [address] [place] [address] documented as of this encounter
--- OUTSIDE RECORDS SUMMARY | 2022-01-05 09:56 | XMS_ITS | Encounter Summary ---
:1950 Author Organization [facility] Address [address] [place] [address] Care Team Providers Name Role Phone No Ref-Primary, Physician Primary Care Provider [phone] Savanah Gaming PA-C Unavailable [phone] Encounter Details Date Type Department Care Team [...] on filedocumented in this encounter Care Teams Lap Machine Operator Relationship Specialty Start Date End Date No Ref-Primary, Physician PCP - General 07/15/20 Savanah Gaming PA-C Assigned PCP 06/24/20 08/25/20 [address] [place] [address] documented as of this encounter
--- OUTSIDE RECORDS SUMMARY | 2022-01-05 09:56 | XMS_ITS | Encounter Summary ---
:1950 Author Organization [place] Address [facility] [place] [place] [address] Care Team Providers Name Role Phone No Ref-Primary, Physician Primary Care Provider [phone] Lino Radford DO Unavailable Wilian Castañeda MD Unavailable Reason for Visit Reason Comments Frequent UTI's Recs were faxed to [facility] Encounter Details Date Type Department Care Team Description 12/23/[address] [facility] Justine Laurent y tract Urology Clinic [place] Cervantes infection with [place] [address] hematuria, site [address] [facility] [address] ([place] [address] Dx) [address] [place], [place] (Work) [address] Social History Tobacco Use [...] ??? Frequent UTI's Recs were faxed to [place] Diya Sanders LPN documented in this encounter Plan of Treatment Not on filedocumented as of this encounter Visit Diagnoses Diagnosis Urinary tract infection with hematuria, site unspecified - Primary documented in this encounter Care Teams Bid Manager Relationship Specialty Start Date End Date No Ref-Primary, Physician PCP - General 07/15/20 Lino Radford DO Assigned PCP 08/26/20 [address] [place] [address] Wilian Castañeda MD Assigned Heart and Vascular 09/12/20 [address] Provider [address] [place] [address] documented as of this encounter
--- OUTSIDE RECORDS SUMMARY | 2022-01-05 09:56 | XMS_ITS | Encounter Summary ---
:1950 Author Organization [place] Address [address] [place] [address] Care Team Providers Name Role Phone No Ref-Primary, Physician Primary Care Provider [phone] Lino Radford DO Unavailable Encounter Details [...] on filedocumented in this encounter Care Teams Glue Drier Operator Relationship Specialty Start Date End Date No Ref-Primary, Physician PCP - General 07/15/20 Lino Radford DO Assigned PCP 08/26/20 [address] [place] [address] documented as of this encounter
--- OUTSIDE RECORDS SUMMARY | 2022-01-05 09:56 | XMS_ITS | Encounter Summary ---
:1950 Author Organization [place] Address [address] [place] [address] Care Team Providers Name Role Phone No Ref-Primary, Physician Primary Care Provider [phone] Lino Radford DO Unavailable Wilian Castañeda MD Unavailable Reason for Visit Reason Onset Date Comments Clinic Care Coordination - Follow-up 09/23/2020 Encounter Details Date Type Department Care Team Description 09/23/2020 Telephone [facility] Jerri Rincon RN Clinic Care Coordination Clinic [place] - Follow-up [address] [facility] [address] [place] [phone] Social History Tobacco Use Types Packs/Day Years [...] on filedocumented in this encounter Care Teams Supervisor Asbestos Removal Relationship Specialty Start Date End Date No Ref-Primary, Physician PCP - General 07/15/20 Lino Radford DO Assigned PCP 08/26/20 [address] [place] [address] Wilian Castañeda MD Assigned Heart and Vascular 09/12/20 [address] [facility] Provider [address] [place] [address] documented as of this encounter
--- OUTSIDE RECORDS SUMMARY | 2022-01-05 09:56 | XMS_ITS | Encounter Summary ---
:1950 Author Organization [place] Address [address] [place] [address] Care Team Providers Name Role Phone No Ref-Primary, Physician Primary Care Provider [phone] Lino Radford DO Unavailable Wilian Castañeda MD Unavailable Reason for Visit Reason Onset Date Comments Medication Question 11/01/2020 Encounter Details Date Type Department Care Team Description 11/01/2020 Telephone [facility] Jerri Rincon RN Medication Question Clinic [address] [place] [address] Social History Tobacco Use Types [...] pt [facility]. Pt also asked how [...] Pt voiced understanding and agreement with plan. CAROLSerroRN 930 am documented in this encounter Plan of Treatment Not on filedocumented as of this encounter Visit Diagnoses Not on filedocumented in this encounter Care Teams Blast Furnace Checker Relationship Specialty Start Date End Date No Ref-Primary, Physician PCP - General 07/15/20 Lino Radford DO Assigned PCP 08/26/20 [address] [place], [place] [phone] Wilian Castañeda MD Assigned Heart and Vascular 09/12/20 [address] [facility] Provider [address] [place] [address] documented as of this encounter
--- OUTSIDE RECORDS SUMMARY | 2022-01-05 09:56 | XMS_ITS | Encounter Summary ---
:1950 Author Organization [facility] Address [address] [place] [address] Care Team Providers Name Role Phone No Ref-Primary, Physician Primary Care Provider [phone] Lino Radford DO Unavailable Wilian Castañeda MD [...] on filedocumented in this encounter Care Teams Cardiology Clinical Nurse Specialist Relationship Specialty Start Date End Date No Ref-Primary, Physician PCP - General 07/15/20 Lino Radford DO Assigned PCP 08/26/20 [address] [place] [address] Wilian Castañeda MD Assigned Heart and Vascular 09/12/20 [address] [facility] [address] [place] [address] documented as of this encounter
--- OUTSIDE RECORDS SUMMARY | 2022-01-05 09:56 | XMS_ITS | Encounter Summary ---
:1950 Author Organization [facility] Address [facility] [place] [address] Care Team Providers Name Role Phone No Ref-Primary, Physician Primary Care Provider [phone] Lino Radford DO Unavailable Wilian Castañeda MD Unavailable Reason for Referral CV Testing (Routine) - Closed Specialty Diagnoses / Procedures Referred By Contact Refer red To Contact Cardiology Diagnoses Chronic atrial fibrillation (H) Wilian Castañeda Sh Cv Cardiac Services Procedures Leadless blueprint reader 3 to 7 Days ZZHC EXT ECG > 48HR TO 21 DAY RCRD W/CONECT INTL RCRD ZZC EXT ECG > 48HR TO 21 DAY REVIEW AND INTERPRETATN WY EXT ECG > 48HR TO 21 DAY RCRD W/CONECT INTL RCRD MD [address] [place] EXT ECG > 48HR TO 21 DAY REVIEW AND INTERPRETATN HC EXT ECG > 48HR TO 21 DAY RCRD W/CONECT INTL RCRD [address] [place] [address] [place] [address] Referral ID Status Reason Start Date Expiration Date Visits Requ ested Visits Authorized [id number] Closed 09/01/2020 09/01/2021 1 1 Reason for Visit Auth/Cert Specialty Diagnoses / Procedures Referred By Contact Refer red To Contact Cardiology Cv Cardiac Se rvices [address] [place] [phone] Phone: Referral ID Status Reason Start Date Expiration Date Visits Requ ested Visits Authorized [id number] 1 1 Encounter Details Date Type Department Care Team Description 09/29/[facility] MD Arnaldo fibrillation (H) [facility] [address] [facility] [address] [facility] [address] [facility] [place] [address] [address] [place] (Work) [address] Social History Tobacco Use Types [...] Priority Date/Time Associated Diagnosis Comme nts LEADLESS COMMISSARY AGENT Routine 09/29/2020 1:51 Chronic atrial Re sults for this APPLICATION AND PM CDT fibrillation (H) procedur e are in INTERPRETATION 3 TO 7 the re sults DAY section. documented in this encounter Results LEADLESS COMMISSARY AGENT APPLICATION AND INTERPRETATION 3 TO 7 DAY [...] fibrillation documented in this encounter Care Teams Hydrological Technical Officer Relationship Specialty Start Date End Date No Ref-Primary, Physician PCP - General 07/15/20 Lino Radford DO Assigned PCP 08/26/20 [address] [place], [place] [address] Wilian Castañeda MD Assigned Heart and Vascular 09/12/20 [address] [facility] Provider [address] [place] [address] documented as of this encounter
--- OUTSIDE RECORDS SUMMARY | 2022-01-05 09:56 | XMS_ITS | Encounter Summary ---
:1950 Author Organization [place] Address [address] [place] [address] Care Team Providers Name Role Phone No Ref-Primary, Physician Primary Care Provider [phone] Lino Radford DO Unavailable Wilian Castañeda MD [...] on filedocumented in this encounter Care Teams Buffing Machine Operator Relationship Specialty Start Date End Date No Ref-Primary, Physician PCP - General 07/15/20 Lino Radford DO Assigned PCP 08/26/20 [address] [place] [address] Wilian Castañeda MD Assigned Heart and Vascular 09/12/20 [address] [facility] Provider [address] [place] [address] documented as of this encounter
--- OUTSIDE RECORDS SUMMARY | 2022-01-05 09:56 | XMS_ITS | Clinical Summary ---
:1950 Author Organization [place] Address [address] [place] [address] Care Team Providers Name Role Phone No Ref-Primary, Physician Primary Care Provider [phone] Lino Radford DO Unavailable Wilian Castañeda MD Unavailable Justine Laurent PA-C Unavailable [phone] Allergies No known active allergies Medications [...] 1950 FIT-DNA (Cologuard) 1950 FLEX SIG 1950 HEPATITIS C SCREENING 1968 LIPID 1985 LUNG CANCER SCREENING 2000 ZOSTER IMMUNIZATION (1 of 2) 2000 MEDICARE ANNUAL WELLNESS 2015 VISIT Pneumococcal Vaccine: 65+ 2015 Years (1 - PCV) PHQ-2 (once per calendar 04/02/2021 08/23/2020 year) [...] Addre ss Type Group BCBS BCBS MEDICARE [id number] 2020-Edd [phone] [address] [address] Medicare ADVANTAGE t 0 [place] [address] Care Teams Manager Personal Relationship Specialty Start Date End Date No Ref-Primary, Physician PCP - General 07/15/20 Lino Radford DO Assigned PCP 08/26/20 [address] [place] [address] Wilian Castañeda MD Assigned Heart and Vascular 09/12/[address] Provider [address] [place] [address] Justine Laurent, Assigned Surgical Provider 01/02/[address] [place] [address] [place] [address]
--- OUTSIDE RECORDS SUMMARY | 2022-01-05 09:56 | XMS_ITS | Encounter Summary ---
:1950 Author Organization [place] Address [address] [place] [address] Care Team Providers Name Role Phone No Ref-Primary, Physician Primary Care Provider [phone] Lino Radford DO Unavailable Wilian Castañeda MD Unavailable Reason for Visit Reason Onset Date Comments Clinic Care Coordination - Follow-up 10/28/2020 Encounter Details Date Type Department Care Team Description 10/28/2020 Telephone [facility] Jerri Rincon RN Clinic Care Coordination Clinic [place] - Follow-up [address] [facility] [address] [place] [phone] Social History Tobacco Use Types Packs/Day Years [...] on filedocumented in this encounter Care Teams Rug Backing Stenciler Relationship Specialty Start Date End Date No Ref-Primary, Physician PCP - General 07/15/20 Lino Radford DO Assigned PCP 08/26/20 [address] [place] [address] Wilian Castañeda MD Assigned Heart and Vascular 09/12/20 [address] [facility] Provider [address] [place], [place] [address] documented as of this encounter
--- OUTSIDE RECORDS SUMMARY | 2022-01-05 09:56 | XMS_ITS | Encounter Summary ---
:1950 Author Organization [place] Address [address] [place] [address] Care Team Providers Name Role Phone No Ref-Primary, Physician Primary Care Provider [phone] Savanah Gaming PA-C Unavailable [phone] Encounter Details Date Type Department Care Team Description 08/23/2020 Telephone [facility] No Ref-Primary, [place] Physician [address] [facility] [place] [address] Social History Tobacco Use [...] CDT Patient calls, Had EKG done at [facility] 08/09/2020, per office notes Discussed with pt [...] on filedocumented in this encounter Care Teams Doping Supervisor Relationship Specialty Start Date End Date No Ref-Primary, Physician PCP - General 07/15/20 Savanah Gaming PA-C Assigned PCP 06/24/20 08/25/20 [address] [place] [address] documented as of this encounter
--- OUTSIDE RECORDS SUMMARY | 2022-01-05 09:56 | XMS_ITS | Encounter Summary ---
:1950 Author Organization [place] Address [address] [place] [address] Care Team Providers Name Role Phone No Ref-Primary, Physician Primary Care Provider [phone] Lino Radford DO Unavailable Reason for Visit Reason Onset Date Comments Appointment 08/31/2020 Dr Castañeda 09/01 Encounter Details Date Type Department Care Team Description 08/31/2020 Telephone [facility] Teresa Mesa A ppointment (Dr Castañeda [facility] Lizzy RN 09/01) [address] [facility] [address] [place] [phone] Social History Tobacco Use Types Packs/Day Years [...] who stated there are no records from [place] as he did not seek medical care regarding his heart arrhythmia there. CARLOSerroRN 820 am Telephone Encounter - Teresa Mesa RN - 08/31/2020 1:06 PM CDT LM for pt to call back to see if he has any records in [place] that may be wanted for OV with Dr Castañeda. JNelsonRN documented in this encounter Plan of Treatment Not on filedocumented as of this encounter Visit Diagnoses Not on filedocumented in this encounter Care Teams Frame Sample And Pattern Supervisor Relationship Specialty Start Date End Date No Ref-Primary, Physician PCP - General 07/15/20 Lino Radford DO Assigned PCP 08/26/20 [address] [place] [address] documented as of this encounter
--- OUTSIDE RECORDS SUMMARY | 2022-01-05 09:56 | XMS_ITS | Encounter Summary ---
:1950 Author Organization [facility] Address [address] [place] [address] Care Team Providers Name Role Phone No Ref-Primary, Physician Primary Care Provider [phone] Lino Radford DO Unavailable Wilian Castañeda MD Unavailable Reason for Visit Reason Onset Date Comments Orders 10/27/2020 Encounter Details Date Type Department Care Team Description 10/27/2020 [facility] Rufus Fisher RN Orders [place] [address] [facility] [address] [place] [address] Social History Tobacco Use Types [...] fibrillation documented in this encounter Care Teams Pants Presser Relationship Specialty Start Date End Date No Ref-Primary, Physician PCP - General 07/15/20 Lino Radford DO Assigned PCP 08/26/20 [address] [place] [address] Wilian Castañeda MD Assigned Heart and Vascular 09/12/20 [address] [facility] Provider [address] [place] [address] documented as of this encounter
--- OUTSIDE RECORDS SUMMARY | 2022-01-05 09:56 | XMS_ITS | Encounter Summary ---
:1950 Author Organization [place] Address formerly [facility] [place] [address] Care Team Providers Name Role Phone No Ref-Primary, Physician Primary Care Provider [phone] Lino Radford DO Unavailable Wilian Turner [...] ZZHC STATISTIC IV PUSH SINGLE INITIAL SUBSTANCE AK ECHO MYOCARD BX AK INJECTION, PERFLUTREN LIPID MICROSPHERES, PER ML AK TTE W/DOPPLER, COMPLETE [address] [place] IV PUSH SINGLE, INITIAL S UBSTANCE AK TTE W/DOPPLER, COMPLETE AK TTE W/DOPPLER, COMPLETE HC US GUIDE FOR PERICARDIOCENTESIS HC ECHO MYOCARD BX HC IV PUSH SINGLE, INITIAL SUBSTANCE HC STATISTIC IV PUSH SINGLE INITIAL SUBSTANCE [address]300 HC ECHO COMPLETE W DOPPLER W CONTRAST HC ECHO COMPLETE W DOPPLER W/O CONTRAST [place] [address] [place] [phone] Referral ID Status Reason Start Date Expiration Date Visits Requ ested Visits Authorized [id number] Closed 09/01/2020 09/01/2021 1 1 Reason for Visit Auth/Cert Specialty Diagnoses / Procedures Referred By Contact Refer red To Contact Cardiology Cv Cardiac Se rvices [phone] [facility] [address] [place] [phone] Phone: Referral ID Status Reason Start Date Expiration Date Visits Requ ested Visits Authorized [id number] 1 1 Encounter Details Date Type Department Care Team Description 09/29/2020 Hospital Encounter [facility] Wilian Turner Ch ronic atrial [facility] MD Tj fibrillation (H) Heart Care [address] [facility] [address] [facility] [address] [facility] [address] [address] [place] Perez (Work) [phone] Social History Tobacco Use Types Packs/Day Years Used Date Former Smoker Cigarettes 2 20 04/02/1971 - 0 04/02/1991 Smokeless Tobacco: Never Used Alcohol Use Standard Drinks/Week Comments Yes 0 (1 standard drink = 0.6 oz pure alcoho l) [facility] Alcohol Habits Answer Date Recorded How often [...] PM CDT Narrative 09/29/2020 2:20 PM CDT [id number]^YUE^WILIAN^TJ [facility] Heart Echocardiography Laboratory [address] [facility] [address] [place] [address] Name: MARLON OWENS : 1950 Study Date: 09/29/2020 12:50 PM Age: 70 yrs Gender: Male Patient Location: [facility] Reason For Study: Chronic atrial fibrill ation (H) Ordering Physician: WILIAN TURNER Referring Physician: WILIAN TURNER A Performed By: Silvia Rubio BSA: 2.3 m2 Height: 71 in Weight: 243 lb HR: 112 BP: 120/82 mmHg Procedure Complete Echo Adult. Breanna ([facility] #[id number]) given intravenously. Interpretation Summary The left ventricle [...] Procedure Note Odessa Aguila MD - 09/29/2020 [id number]^YUE^WILIAN^TJ [facility] Heart Echocardiography Laboratory [address] [facility] [address] [place] [address] Name: MARLON OWENS : 1950 Study Date: 09/29/2020 12:50 PM Age: 70 yrs Gender: Male Patient Location: [facility] Reason For Study: Chronic atrial fibrill ation (H) Ordering Physician: WILIAN TURNER Referring Physician: WILIAN TURNER Performed By: Silvia Rubio BSA: 2.3 m2 Height: 71 in Weight: 243 lb HR: 112 BP: 120/82 mmHg Procedure Complete Echo Adult. Optison ([facility] #[id number]) given intravenously. Interpretation Summary The left ventricle [...] On Sun09/29/20 at 1400, For 1 dose, [facility]- [id number] sodium chloride (PF) 0.9% PF flush 10 mL Given 09/29/2020 1:44 PM CDT 10 mLs 10 mL, Intravenous, ONCE, On Sun09/29/20 at 1400, For 1 dose documented in this encounter Care Teams Campus Executive Director Relationship Specialty Start Date End Date No Ref-Primary, Physician PCP - General 07/15/20 Lino Radford DO Assigned PCP 08/26/20 [address] [address] [address] Wilian Turner MD Assigned Heart and Vascular 09/12/20 [address] [facility] Provider [address] [place] [address] documented as of this encounter
--- OUTSIDE RECORDS SUMMARY | 2022-01-05 09:56 | XMS_ITS | Encounter Summary ---
:1950 Author Organization [place] Address [address] [place] [address] Care Team Providers Name Role Phone No Ref-Primary, Physician Primary Care Provider [phone] Lino Radford DO Unavailable Wilian Castañeda MD Unavailable Reason for Visit Reason Onset Date Comments Clinic Care Coordination - Follow-up 11/08/2020 blo od in urine---UTI Encounter Details Date Type Department Care Team Description 11/08/2020 Telephone [facility] Denisa Fisher, Clinic Care Coordination Clinic [place] RN - Follow-up (blood in [address] urine---U TI ) [facility] [address] [place] [address] Social History Tobacco Use Types Packs/Day Years Used Date Former Smoker Cigarettes 2 20 04/02/1971 - 0 04/02/1991 Smokeless Tobacco: Never Used Alcohol Use Standard Drinks/Week Comments Yes 0 (1 standard drink = 0.6 oz pure alcoho l) [facility] Alcohol Habits Answer Date Recorded How often [...] after his OV with Dr Mistry at [facility]. JNelsonRN Telephone Encounter - Jerri Rincon RN - 11/12/2020 2:05 PM CDT 11/12/[address] Ver[address] order recd from Dr Castañeda -Stop Eliquis - Pt should see his PCP to determine source of bleeding. He may possibly need Urology consult or Watchman -Cancel DCCV for now Spoke w pt and explained recommendations. Pt has appt to establish care with Dr Cody Mistry at [facility] on 11/18. Plan was made to connect [...] does have follow up with PCP at [facility] in [place] on 11/18 he will be seeing Dr Cody Mistry. Patient agreed with plan and provided verbal understanding regarding above. MICHAEL Bynum documented in this encounter Plan of Treatment Not on filedocumented as of this encounter Visit Diagnoses Not on filedocumented in this encounter Care Teams Trademark Affixer Relationship Specialty Start Date End Date No Ref-Primary, Physician PCP - General 07/15/20 Lino Radford DO Assigned PCP 08/26/20 [address] [place] [address] Wilian Castañeda MD Assigned Heart and Vascular 09/12/20 [address] [facility] Provider [address] [place] [address] documented as of this encounter
--- OUTSIDE RECORDS SUMMARY | 2022-01-05 09:57 | XMS_ITS | Encounter Summary ---
:1950 Author Care Team Providers Name Role Phone Estela Elaine MD Primary Care Provider [phone] Reason for Visit Lab/Nursing Visit Assessment and Plan 1. Retention of urine ? urinalysis, dipstick ? culture, urine Discussion Note: None recorded.Patient educational handouts: No information available. Plan of Care Reminders Provider Appointments [place] [address] 01/20/2022 Keagan Walalce MD 12:30PM ? Established 01/23/2022 Tasia Gottlieb, 10:00AM ESTUARDO ? Established 03/03/2022 1:00PM [facility] Lab Urinalysis, Dipstick 11/28/2021 [facility] ? Culture, Urine 11/28/2021 [facility] Referral None [...] -[facility]: [address] [address], [place] ? ? UR ABNORMAL Appearance turbid clear Final [place] [facility]: [address] [address], [place] ? ? UR ? Glucose negative negative Final [place] [facility] mg/dL mg/dL [facility]: [address] [address], [place] ? ? UR ? Bilirubin negative negative Final [place] [facility]: [address] [address], [place] ? ? UR ? Ketones negative negative Final [place] [facility] mg/dL mg/dL [facility]: [address] [address], [place] ? ? UR ? Sp. Mccammon <=1.005 1.010-1.0 Final [place] [facility] 25 [facility]: [address] [address], [place] ? ? UR ? pH -[facility] 5.0 5.0-8.0 Final [place] [facility]: [address] [address], [place] ? ? UR ? Protein negative negative Final [place] [facility] mg/dL mg/dL [facility]: [address] [address], [place] ? ? UR ? Urobilinogen 0.2 normal Final [place] [facility]: [address] [address], [place] ? ? UR ABNORMAL Nitrites positive negative Final [place] [facility]: [address] [address], [place] ? ? UR ABNORMAL Blood moderate negative Final [place] [facility]: [address] [address], [place] ? ? UR ABNORMAL Leukocytes large negative Final [place] [facility]: [address] [address], [place] ? ? UR ? Performed by aida Alvares ? Final [place] [facility]: [address] [address], [place] ? ? UR ? Total Urine 20 /mL ? Final [place] Volume (mL) [facility]: [address] [place] [address] 11/28/2021 Culture, UR ABNORMAL Final Report microbiology ? Final [place] Urine results [facility]: [address] [address], [place] Allergies None recorded. Problems None recorded. Procedures [...] 11/28/2021 Retention of Urine Keagan Wallace MD: [address] [place] [phone], Ph. 11/02/2021 Prostate Nodule; Recurrent Urinary Tract Infection; Prostatitis Keagan Wallace MD: [address] [place] [address], [address] [address], Ph. 11/02/2021 Raised Prostate Specific Antigen Keagan Wallace MD: [address] [place] [address], [address] [address], Ph. History of Present Illness None recorded. Review of Systems None recorded. Physical Exam None recorded.
--- OUTSIDE RECORDS SUMMARY | 2022-01-05 09:57 | XMS_ITS | Encounter Summary ---
:1950 Author Organization [place] Address [address] [place] [address] Care Team Providers Name Role Phone No Ref-Primary, Physician Primary Care Provider [phone] Savanah Gaming PA-C Unavailable [phone] Reason for Visit Reason Comments Rectal Bleeding Encounter Details Date Type Department Care Team Description 07/15/2020 Emergency [facility] Jennifer Arita, Ur inary tract infection without hematuria, site unspecified; [facility] Emergency DO Hyperkalemia; Dept [facility] Rectal bleeding; [address] Diverticulosis of large intestine with h emorrge [place], [place] [address] [phone] [place] [address] (Wo rk) Social History Tobacco Use Types [...] Care Everywhere. Urinary Tract Infections (UTIs), Understanding (Iraqi)Rectal Bleeding, Evaluating and Treating (Iraqi)documented in this encounter Medications at Time of [...] history of UTIs. He reports moving from [place] 2 days prior. Review of Systems Constitutional: [...] or guarding. No CVA tenderness. SHE without arabella blood/melena. No external hemorrhoids/palpable mass. Director Digital Catalogue MICHAEL Avila MSK: No calf tenderness or swelling. Neuro: Alert. Follows simple commands. Skin: Skin is warm and dry. No rash noted. Psychiatric: Normal affect. Emergency Department Course ECG: ECG taken at 0555, ECG read at 0558 Sinus tachycardia Left anterior fascicular block Septal infarct, age undetermined ST & T wave abnormality, consider lateral ischemia Abnormal ECG Rate 116 bpm. DE interval * ms. QRS duration 124 ms. [...] provided today as patient just moved to [place]. I will dispo home withantibiotics. We reviewed [...] observations and the provider's statements to me. [facility] EMERGENCY DEPT Jennifer Arita DO 07/15/20 0620 documented in this encounter Miscellaneous Notes Result Encounter Note - Mejia Dowling RN - 07/15/2020 6:10 AM CDT [facility] Emergency Dept discharge antibiotic (if prescribed): Cephalexin (Keflex) 500 mg capsule, 1 capsule (500 mg) by mouth 2 times daily for 7 days. Date of Rx (if applicable): 07/15/20 No changes in treatment per [facility] ED Lab Result Urine culture protocol. [...] timesdaily for 7 days. Treatment recommendations per [facility] ED Lab Result Urine Culture protocol. [...] EKG 12 lead (07/15/2020 5:55 AM CDT) [facility] gist Method Time Signature Interpretation ECG Click [...] EXAM: CT ABDOMEN PELVIS W CONTRAST LOCATION: [facility] DATE/TIME: 07/15/2020 5:08 AM INDICATION: Abdominal pain, [...] EXAM: CT ABDOMEN PELVIS W CONTRAST LOCATION: [facility] DATE/TIME: 07/15/2020 5:08 AM INDICATION: Abdominal pain, [...] Component Value Ref Test Analysis Performed At [facility] Range Method Time Signature Specimen Midstream Urine INFECTIOUS Description [facility] Special Specimen received 07/15/2020 INFECTIOUS Requests in preservative 8:41 AM CDT [facility] Culture Micro >100,000 colonies/mL 07/16/2020 INFE CTIOUS mixed urogenital cristian 9:44 AM CDT DISEA SES Susceptibility testing not routinely done DIAGNOSTIC LABORATORY, [facility] Specimen (Source) Anatomical Collection Method Collection Time Re ceived Time Location / / Volume Laterality Examination of 07/15/2020 3:58 07/15/2020 5:01 midstream urine AM CDT AM CDT specimen (procedure) Jennifer Arita DO LAB - MICRO GENERAL ORDERABL ES Performing Organization Address City/State/ZIP Code Phon e Number INFECTIOUS [facility] [address] [facility] [address] [address] LABORATORY, [facility] (ABNORMAL) Stool: occult blood (07/15/2020 3:58 AM CDT) [facility] Method [place] Signature Occult Blood Positive (A) NEG^Negat 07/15/2020 [facility] husam 4:23 AM [facility] Specimen Anatomical Collection Method Collection Time Receive d Time (Source) Location / / Volume Laterality Stool 07/15/2020 3:58 AM 4:21 CDT AM CDT Jennifer Arita DO LAB - STOOLS ORDERABLES Performing Organization Address City/State/ZIP Code Phon e Number [facility] [address] [place], [place] [address] [phone] [facility] [address] [phone] (ABNORMAL) UA with Microscopic (07/15/2020 3:58 AM CDT) [facility] Method Time Signature Color Urine Yellow 07/15/2020 [facility] 4:37 AM [facility] Appearance Urine Cloudy 07/15/2020 [facility] 4:37 AM [facility] Glucose Urine Negative NEG^Negat 07/15/2020 [facility] [place] mg/dL 4:37 AM [facility] Bilirubin Urine Negative NEG^Negat 07/15/2020 [facility] hus[place] 4:37 AM [facility] Ketones Urine 40 (A) NEG^Negat 07/15/2020 [facility] [place] mg/dL 4:37 AM [facility] Specific Novice 1.016 1.003 - 07/15/2020 [facility] Urine 1.035 4:37 AM [facility] Blood Urine Moderate (A) NEG^Negat 07/15/2020 [facility] husam 4:37 AM [facility] pH Urine 6.0 5.0 - 7.0 07/15/[address] [facility] pH 4:37 AM [facility] Protein Albumin 200 (A) NEG^Negat 07/15/[address] [facility] Urine husam mg/dL 4:37 AM [facility] Urobilinogen Normal 0.0 - 2.0 07/15/2020 [facility] mg/dL mg/dL 4:37 AM [facility] Nitrite Urine Negative NEG^Negat 07/15/2020 [facility] husam 4:37 AM [facility] Leukocyte Large (A) NEG^Negat 07/15/[address] [facility] Esterase Urine husam 4:37 AM [facility] Source Midstream 07/15/2020 [facility] Urine 3:58 AM [facility] WBC Urine >182 (H) 0 - 5 07/15/2020 [facility] /HPF 4:37 AM [facility] RBC Urine 30 (H) 0 - 2 07/15/2020 [facility] /HPF 4:37 AM [facility] WBC Clumps Present (A) NEG^Negat 07/15/2020 [facility] [place] /HPF 4:37 AM [facility] Bacteria Urine Moderate (A) NEG^Negat 07/15/2020 [facility] hus[place] /HPF 4:37 AM [facility] Squamous 3 (H) 0 - 1 07/15/2020 [facility] Epithelial /HPF /HPF 4:37 AM [facility] Mucous Urine Present (A) NEG^Negat 07/15/2020 [facility] [place] /LPF 4:37 AM [facility] Specimen (Source) Anatomical Collection Method Collection Time Re ceived Time Location / / Volume Laterality Examination of URINE SPECIMEN 07/15/2020 3:58 07/16/19 4:21 midstream urine OBTAINED BY CLEAN AM CDT AM CDT specimen CATCH PROCEDURE / (procedure) Unknown Jennifer Arita DO LAB - URINE ORDERABLES Performing Organization Address City/[facility]/ZIP [facility] Phon e Number M [facility] [address], [place] [address] [facility] [address], [place] [address], [facility] [phone] INR (07/15/2020 2:20 AM CDT) athologist Signature INR 1.10 0.86 - 1.14 07/15/[address] [facility] 3:53 AM CDT HOSPITAL Specimen Anatomical Collection Method Collection Time Receive d Time (Source) Location / / Volume Laterality 07/15/2020 2:20 AM 2:27 CDT AM CDT Jennifer Arita DO LAB - BLOOD ORDERABLES Performing Organization Address City/[facility] Code Phon e Number M [facility] [address], [place] [address] [facility] [address], [place] [address], [facility] [phone] (ABNORMAL) Comprehensive metabolic panel (07/15/2020 2:20 AM CDT) athologist Signature Sodium 140 133 - 144 07/15/2020 [facility] mmol/L 4:22 AM CDT [facility] Potassium 5.7 (H) 3.4 - 5.3 07/15/2020 [facility] mmol/L 4:22 AM T [facility] Chloride 111 (H) 94 - 109 07/15/2020 [facility] mmol/L 4:22 AM T [facility] Carbon Dioxide 24 20 - 32 07/15/2020 [facility] mmol/L 4:22 AM T [facility] Anion Gap 5 3 - 14 07/15/2020 [facility] mmol/L 4:22 AM [facility] Glucose 110 (H) 70 - 99 07/15/2020 [facility] mg/dL 4:22 AM [facility] Urea Nitrogen 27 7 - 30 07/15/2020 [facility] mg/dL 4:22 AM [facility] Creatinine 0.72 0.66 - 07/15/2020 [facility] 1.25 mg/dL 4:22 AM [facility] GFR Estimate >90 >60 07/15/2020 [facility] mL/min/{1. 4:22 AM [facility] 73_m2} HOSPITAL Comment: Non GFR Calc Starting 03/19/2018, serum creatinine ba sed estimated GFR (eGFR) will be calculated using the Chronic Kidney Dise [facility] Epidemiology Collaboration (CKD-EPI) equation. GFR Estimate If >90 >60 mL/min/{1.73_m2} 07/15/2020 4: 22 AM [facility] Comment: GFR Calc Starting 03/19/2018, serum creatinine ba sed estimated GFR (eGFR) will be calculated using the Chronic Kidney Dise [facility] Epidemiology Collaboration (CKD-EPI) equation. Calcium 8.9 8.5 - 10.1 07/15/2020 4:22 AM [facility] mg/dL [facility] Bilirubin Total 1.4 (H) 0.2 - 1.3 mg/dL 07/15/2020 4:22 AM [facility] Albumin 3.0 (L) 3.4 - 5.0 g/dL 07/15/2020 4:[address] [facility] Protein Total 7.1 6.8 - 8.8 g/dL 07/15/2020 4:22 AM [facility] Alkaline Phosphatase 80 40 - 150 U/L 07/15/2020 4:22 AM [facility] ALT 26 0 - 70 U/L 07/15/2020 4:22 AM [facility] AST 43 0 - 45 U/L 07/15/2020 4:22 AM [facility] Comment: Specimen is hemolyzed which can falsely elevate AST. Analysis of a non-hemolyzed specimen may result in a l ower value. Specimen Anatomical Collection Method Collection Time Receive d Time (Source) Location / / Volume Laterality 07/15/2020 2:20 AM 2:27 CDT AM CDT Jennifer Arita LAB - BLOOD ORDERABLES Performing Organization Address City/State/ZIP Code Phon e Number M [facility] [address] [place] [address] [facility] [address] [place] [address], [place] [phone] (ABNORMAL) CBC with platelets differential (07/15/2020 2:20 AM CDT) [facility] Method Time Signature WBC 11.7 (H) 4.0 - 07/15/2020 [facility] 11.0 2:30 AM [facility] 10e9/L [facility] RBC Count 5.02 4.4 - 5.9 07/15/2020 [facility] 10e12/L 2:30 AM [facility] Hemoglobin 15.8 13.3 - 07/15/2020 [facility] 17.7 g/dL 2:30 AM [facility] Hematocrit 48.2 40.0 - 07/15/2020 [facility] 53.0 % 2:30 AM [facility] MCV 96 78 - 100 07/15/2020 [facility] fl 2:30 AM [facility] MCH 31.5 26.5 - 07/15/2020 [facility] 33.0 pg 2:30 AM [facility] MCHC 32.8 31.5 - 07/15/2020 [facility] 36.5 g/dL 2:30 AM [facility] RDW 13.7 10.0 - 07/15/2020 [facility] 15.0 % 2:30 AM [facility] Platelet Count 241 150 - 450 07/15/2020 [facility] 10e9/L 2:30 AM [facility] Diff Method Automated 07/15/2020 [facility] Method 2:30 AM [facility] % Neutrophils 75.5 % 07/15/2020 [facility] 2:30 AM [facility] % Lymphocytes 13.7 % 07/15/2020 [facility] 2:30 AM [facility] % Monocytes 8.3 % 07/15/2020 [facility]30 [facility] % Eosinophils 1.6 % 07/15/2020 [facility] 2[facility]30 AM [facility] % Basophils 0.5 % 07/15/2020 [facility] 2:30 AM [facility] % Immature 0.4 % 07/15/[address] [facility] Granulocytes 2:30 AM [facility] Nucleated RBCs 0 0 /100 07/15/2020 [facility] 2:30 AM [facility] Absolute 8.8 (H) 1.6 - 8.3 07/15/2020 [facility] Neutrophil 10e9/L 2:30 AM [facility] Absolute 1.6 0.8 - 5.3 07/15/2020 [facility] Lymphocytes 10e9/L 2:30 AM [facility] Absolute 1.0 0.0 - 1.3 07/15/[address] [facility] Monocytes 10e9/L 2:30 AM [facility] Absolute 0.2 0.0 - 0.7 07/15/[address] [facility] Eosinophils 10e9/L 2:30 AM [facility] Absolute 0.1 0.0 - 0.2 07/15/2020 [facility] Basophils 10e9/L 2:30 AM [facility] Abs Immature 0.1 0 - 0.4 07/15/2020 [facility] Granulocytes 10e9/L 2:30 AM [facility] Absolute 0.0 07/15/2020 [facility] Nucleated RBC 2:30 AM [facility] Specimen Anatomical Collection Method Collection Time Receive d Time (Source) Location / / Volume Laterality Blood 07/15/2020 2:20 AM 2:27 CDT AM CDT Jennifer Arita DO LAB - BLOOD ORDERABLES Performing Organization Address City/State/ZIP Code Phon e Number [facility] [address], [place] [address] [facility] [address] [phone] documented in this encounter Visit Diagnoses Diagnosis [...] dose documented in this encounter Care Teams Medical Pathologist Relationship Specialty Start Date End Date No Ref-Primary, Physician PCP - General 07/15/20 Savanah Gaming PA-C Assigned PCP 06/24/20 08/25/20 [address] [place] [address] documented as of this encounter
--- OUTSIDE RECORDS SUMMARY | 2022-01-05 09:57 | XMS_ITS | Encounter Summary ---
:1950 Author Organization [place] Address [facility] [place] [address] Care Team Providers Name Role Phone No Ref-Primary, Physician Primary Care Provider Savanah Gaming PA-C Unavailable [phone] Encounter Details Date Type Department Care Team Description 08/14/2020 Hospital Encounter [facility] Francisco Peguero for [facility] Laboratory MD Odalys screening for other [address] [place] viral diseases [place], [place] GASTROINTESTINA [address] L [phone] [place] [address] Social History Tobacco Use Types Packs/Day Years Used Date Former Smoker 2 20 04/02/1971 - 0 04/02/1991 Smokeless Tobacco: Never Used Alcohol Use Standard Drinks/Week Comments Yes 0 (1 standard drink = 0.6 oz pure alcoho l) [facility] Alcohol Habits Answer Date Recorded How often [...] (Coronavirus) by PCR (08/14/2020 8:50 AM CDT) [facility] Method Time Signature SARS-CoV-2 Nasopharyngeal 08/14/2020 [facility] OF Virus 4:36 PM T [facility] SARS-CoV-2 NEGATIVE 08/14/2020 [facility] PCR Result 4:36 PM [facility] Comment: SARS-CoV2 (COVID-19) RNA not de tected, presumed negative. SARS-CoV-2 PCR Testing was performed using the Xpert Xpress SARS-CoV-2 Assay on the [employer] Gene-Xpert 08/14/2020 4:36 PM [facility] Comment Instrument Systems. Addition al information about this Emergency Use Authorization (EUA) [facility] assay can be found via the Lab Guide. [place] Comment: This test should be ordered for [...] COVID-19. This test was validated by the [facility] Infectious Diseases Diagnostic Laboratory. This laboratory i [...] Code Phon e Number [facility] [address] [place] [address] [facility] Asymptomatic COVID-19 Virus (Coronavirus) by PCR (08/14/2020 8:50 AM CDT) Component Value Ref Test Analysis Performed At [facility] gist [place] Method Time Signature COVID-19 Nasopharyngeal 08/14/2020 [place] Virus PCR to 8:51 AM CDT [facility] - HOSPITAL Source COVID-19 Test received-See 08/14/2020 INFECTIOUS Virus PCR to reflex to IDDL 1:05 PM CDT DISEASES [facility] - test SARS CoV2 DIAGNOSTIC Result (COVID-19) Virus LABORATORY, RT-PCR [facility] Specimen (Source) Anatomical Collection Method Collection Time Re ceived Time Location / / Volume Laterality Specimen from 08/14/2020 8:50 08/14/2020 nasopharyngeal AM CDT 8:51 AM CDT structure (specimen) Francisco Peguero MD LAB - MICRO GENERAL ORDERABL ES Performing Organization Address City/State/ZIP Code Phon e Number INFECTIOUS DISEASES [address] [place] [address] DIAGNOSTIC LABORATORY, [facility] [address] [phone] documented in this encounter Visit Diagnoses Diagnosis Encounter for screening for other viral diseases documented in this encounter Care Teams Power Technician Relationship Specialty Start Date End Date No Ref-Primary, Physician PCP - General 07/15/20 Savanah Gaming PA-C Assigned PCP 06/24/20 08/25/20 [address] [place] [address] documented as of this encounter
--- OUTSIDE RECORDS SUMMARY | 2022-01-05 09:57 | XMS_ITS | Encounter Summary ---
:1950 Author Organization [place] Address [address] [place] [address] Care Team Providers Name Role Phone No Ref-Primary, Physician Primary Care Provider [phone] Savanah Gaming PA-C Unavailable [phone] Encounter Details Date Type Department Care Team [...] on filedocumented in this encounter Care Teams Rn Operating Room Relationship Specialty Start Date End Date No Ref-Primary, Physician PCP - General 07/15/20 Savanah Gaming PA-C Assigned PCP 06/24/20 08/25/20 [address] [place] [address] documented as of this encounter
--- OUTSIDE RECORDS SUMMARY | 2022-01-05 09:57 | XMS_ITS | Encounter Summary ---
:1950 Author Care Team Providers Name Role Phone Estela Elaine MD Primary Care Provider [phone] Reason for Visit Lab/Nursing Visit Assessment and Plan 1. Raised prostate specific antigen ? PSA, total, serum or plasma Discussion Note: None recorded.Patient educational handouts: No information available. Plan of Care Reminders Provider Appointments [facility] 90 01/20/2022 Keagan Wallace MD 12:30PM ? Established 01/23/2022 Tasia Thacker 10:00AM ESTUARDO Alejandre ? Established 03/03/2022 Tasia Thacker 1:00PM ESTUARDO Alejandre Lab PSA, Total, Serum or Plasma 10/14/2021 [facility] Referral None recorded. ? [...] Urology - Serum or [place]: Plasma [address] [place] [address] Allergies None recorded. Problems None recorded. Procedures [...] Retent ion of Urine Keagan Wallace MD: [address] [place] [phone], Ph. 10/14/2021 Raised Prostate Specific Antigen Keagan Wallace MD: [address] [place] [phone], Ph. 09/15/2021 Dysuria Keagan Wallace MD: [address] [place] [phone], Ph. History of Present Illness None recorded. Review of Systems None recorded. Physical Exam None recorded.
--- OUTSIDE RECORDS SUMMARY | 2022-01-05 09:57 | XMS_ITS | Encounter Summary ---
:1950 Author Care Team Providers Name Role Phone Estela Elaine MD Primary Care Provider [phone] Reason for Visit TRUS biopsy Assessment and [...] available. Plan of Care Reminders Provider Appointments [place] [address] 01/20/2022 12:30PM Keagan Monroy MD ? Established 01/23/2022 10:00AM ESTUARDO Cardona ? Established 03/03/2022 1:00PM ESTUARDO Young Lab Biopsy, Prostate 11/02/2021 [facility] Lab Referral None recorded. ? ? [...] Urinary Tract Infection; Prostatitis Keagan Wallace MD: [address] [place] [phone], Ph. 11/02/2021 Raised Prostate Specific Antigen Keagan Wallace MD: [address] [place] [phone], Ph. 10/14/2021 Raised Prostate Specific Antigen Keagan Wallace MD: [address] [place] [phone], Ph. 10/14/2021 Urinary Tract Infectious Disease; Retent ion of Urine Keagan Wallace MD: [address] [place] [phone], Ph. History of Present Illness Note: <div>This [...]
--- OUTSIDE RECORDS SUMMARY | 2022-01-05 09:57 | XMS_ITS | Encounter Summary ---
:1950 Author Organization [place] Address [address] [place] [address] Care Team Providers Name Role Phone No Ref-Primary, Physician Primary Care Provider [phone] Savanah Gaming PA-C Unavailable [phone] Encounter Details Date Type Department Care Team [...] filedocumented in this encounter Care Teams Frame Carver Spindle Relationship Specialty Start Date End Date No Ref-Primary, Physician PCP - General 07/15/20 Savanah Gaming PA-C Assigned PCP 06/24/20 08/25/20 [address] [place] [address] documented as of this encounter
--- OUTSIDE RECORDS SUMMARY | 2022-01-05 09:57 | XMS_ITS | Encounter Summary ---
:1950 Author Organization [place] Address [facility] [place] [address] Care Team Providers Name Role Phone No Ref-Primary, Physician Primary Care Provider [phone] Savanah Gaming PA-C Unavailable [phone] Reason for Referral (Routine) - Closed Specialty Diagnoses / Procedures Referred By Contact Refer red To Contact Gastroenterology Diagnoses History of colonic polyps Savanah Gaming PA-C [address] [place] [address] Referral ID Status Reason Start Date Expiration Date Visits Requ ested Visits Authorized [id number] Closed 07/19/2020 07/19/2021 1 1 Scheduling Instructions If EUS or ERCP is selected, it requires clinical review prior to scheduling. Reason for Visit Reason Comments Hospital F/U Encounter Details Date Type Department Care Team Description 07/19/2020 Office Visit [facility] Savanah Gaming Acsami e cystitis with hematuria (Primary Dx); Clinic Eladio Mendez PA-C Hyperkalemia; [address] [facility] [address] Morbid obesity (H); [place], [place] Rectal bleedi ng; [phone] Diverticulosis of large intestine withou t hemorrhage; [phone] Bladder diverti culitis; (Work) Nausea; History o [...] - *UA reflex to Microscopic and Culture ([place] [facility] (except [place] and [place]) Hyperkalemia Recheck labs today. - [...] Recheck if not improving. Savanah Gaming PA-C [facility] is a 70 year old who presents for the following health issues HPI Hospital Follow-up Visit: Hospital/Penitentiary/IP Rehab Facility: [facility] Date of Admission: 07/15/20 Date of Discharge: 07/15/20 Reason(s) for Admission: Rectal bleeding, UTI, started on keflex. Was your hospitalization related to COVID-19? No Problems taking medications regularly: None Medication changes since discharge: None Problems adhering to non-medication therapy: None Summary of hospitalization: [facility] discharge summary reviewed Diagnostic Tests/Treatments reviewed. [...] severe rectal bleeding, just moved here from [place], staying with his step son. Bleeding from rectum has not been better since been on the antibiotics but UTI has been better. History of UTIs. Potassium was 5.7. Does not take any medications daily. Colonoscopy [address] Kenny in [place], repeat due in 3 years. No gerd [...] a great week! Sincerely, Raquel Gaming PA-C [facility] [address] [place] [address] Clinic documented in this encounter Plan of [...] - 144 07/19/2020 [facility] mmol/L 8:44 PM [facility] Potassium 4.4 3.4 - 5.3 07/19/2020 [facility] mmol/L 8:44 PM [facility] Chloride 106 94 - 109 07/19/2020 [facility] mmol/L 8:44 PM [facility] Carbon Dioxide 28 20 - 32 07/19/2020 [facility] mmol/L 8:55 PM [facility] Anion Gap 5 3 - 14 07/19/2020 [facility] mmol/L 8:55 PM [facility] Glucose 120 (H) 70 - 99 07/19/2020 [facility] mg/dL 8:55 PM [facility] Urea Nitrogen 31 (H) 7 - 30 07/19/2020 [facility] mg/dL 8:55 PM [facility] Creatinine 1.19 0.66 - 07/19/2020 [facility] 1.25 mg/dL 8:55 PM [facility] GFR Estimate 61 >60 07/19/2020 [facility] mL/min/{1. 8:55 PM [facility] 73_m2} HOSPITAL Comment: Non GFR Calc Starting 03/19/2018, serum creatinine ba sed estimated GFR (eGFR) will be calculated using the Chronic Kidney Dise ase Epidemiology Collaboration (CKD-EPI) equation. GFR Estimate If 71 >60 mL/min/{1.73_m2} 07/19/2020 8: 55 PM [facility] Comment: GFR Calc Starting 03/19/2018, serum creatinine ba sed estimated GFR (eGFR) will be calculated using the Chronic Kidney Dise ase Epidemiology Collaboration (CKD-EPI) equation. Calcium 9.5 8.5 - 10.1 mg/dL 07/19/2020 8:55 PM CDT [facility] Specimen Anatomical Collection Method Collection Time Receive d Time (Source) Location / / Volume Laterality Blood 07/19/2020 2:44 PM 1 2:45 CDT PM CDT Savanah Gaming PA-C LAB - BLOOD ORDERABLE S Performing Organization Address City/State/ZIP Code Phon e Number M [address] [address] [facility] [address] [place], [place] [address] [place] [address] [address], [facility] (ABNORMAL) Urine Microscopic (07/19/2020 2:43 PM CDT) [facility] gist Method Time Signature WBC Urine 5-10 (A) OTO5^0 - 5 07/19/2020 [place] /HPF 3:05 PM CDT [facility] RBC Urine 25-50 (A) OTO2^O - 2 07/19/2020 [facility] /HPF 3:05 PM CDT [facility] Squamous Few FEW^Few 07/19/2020 [place] Epithelial /LPF /LPF 3:05 PM CDT [facility] [place] [place] Bacteria Urine Few (A) NEG^Negati 07/19/2020 [place] ve /HPF 3:05 PM CDT [facility] Calcium Oxalate Few (A) NEG^Negati 07/19/2020 [place] ve /HPF 3:05 PM CDT [facility] Specimen Anatomical Collection Method Collection Time Receive d Time (Source) Location / / Volume Laterality 07/19/2020 2:43 PM 1 2:44 CDT PM CDT Savanah Gaming PA-C LAB - URINE ORDERABLE S Performing Organization Address City/State/ZIP Code Phon e Number [facility] [address] [place] [address] (ABNORMAL) *UA reflex to Microscopic and Culture ([facility] [place] [facility] (07/19/2020 2:43 PM CDT) [facility] Method Time Signature Color Urine Yellow 07/19/2020 [place] 2:57 PM CDT [facility] Appearance Slightly 07/19/2020 [place] Urine Cloudy 2:57 PM CDT [facility] Glucose Urine Negative NEG^Negat 07/19/2020 [place] husam mg/dL 2:57 PM CDT [facility] Bilirubin Moderate (A) NEG^Negat 07/19/2020 [place] Urine husam 2:57 PM CDT [facility] Comment: This is an unconfirmed screenin g test result. A positive result may be false. Ketones Urine 40 (A) NEG^Negative mg/dL 07/19/2020 2:57 [facility] [place] PM CDT [facility] Specific [place] 1.025 1.003 - 1.035 07/19/2020 2:57 [place] Urine PM CDT [facility] Blood Urine Large (A) NEG^Negative 07/19/2020 2:57 [facility] pH Urine 5.5 5.0 - 7.0 pH 07/19/2020 2:57 [facility] Protein Albumin 100 (A) NEG^Negative mg/dL 07/19/2020 2:57 [place] Urine PM CDT [facility] Urobilinogen Urine 1.0 0.2 - 1.0 EU/dL 07/19/2020 2:57 [facility] CDT [facility] Nitrite Urine Negative NEG^Negative 07/19/2020 2:57 [facility]T [facility] Leukocyte Esterase Small (A) NEG^Negative 07/19/2020 2:57 [place] Urine PM CDT [facility] Source Midstream Urine 07/19/2020 2:45 [facility] CDT [facility] Specimen (Source) Anatomical Collection Method Collection Time Re ceived Time Location / / Volume Laterality Examination of 07/19/2020 2:43 07/19/2020 2:44 [place] urine PM CDT PM CDT specimen (procedure) Savanah Gaming PA-C LAB - URINE ORDERABLE S Performing Organization Address City/State/ZIP Code Phon e Number [facility] [address] [place] [address] documented in this encounter Visit Diagnoses Diagnosis Acute cystitis with hematuria - Primary Acute cystitis Hyperkalemia Hyperpotassemia Morbid obesity (H) Morbid obesity Rectal bleeding Hemorrhage of rectum and anus Diverticulosis of large intestine withou t hemorrhage Bladder diverticulitis Diverticulum of bladder Nausea Nausea alone History of colonic polyps Personal history of colonic polyps documented in this encounter Care Teams Energy Sales Broker Relationship Specialty Start Date End Date No Ref-Primary, Physician PCP - General 07/15/20 Savanah Gaming PA-C Assigned PCP 06/24/20 08/25/20 [address] [place] [address] documented as of this encounter
--- OUTSIDE RECORDS SUMMARY | 2022-01-05 09:57 | XMS_ITS | Encounter Summary ---
:1950 Author Organization [place] Address [address] [place] [address] Care Team Providers Name Role Phone No Ref-Primary, Physician Primary Care Provider [phone] Savanah Gaming PA-C Unavailable [phone] Reason for Visit Auth/Cert Specialty Diagnoses / Procedures Referred By Contact Refer red To Contact Gastroenterology Diagnoses Hx of colonic polyps Hx of colonic polyps [Z86.010] Endoscopy Procedures HC COLONOSCOPY W/WO BRUSH/WASH COLONOSCOPY [address] [place] [address] Phone: Fax: Referral ID Status Reason Start Date Expiration Date Visits Requ ested Visits Authorized [id number] 1 1 Encounter Details Date Type Department Care Team Description 08/18/2020 Surgery [facility] Hallie Rivera, COLO NOSCOPY with Endoscopy Evy HOOVER polypectomies USING hot [address], [place] GASTROINTESTINAL [address] [place] [place] [address] [place], [place] [id number] Surgery Details Date/Time Status Location OR Service [...] through Care Everywhere. Diverticulosis and Diverticulitis, Understanding (Citizen [place])Diet, High-Fiber (Citizen [place])Colon and Rectal Polyps, Understanding (Citizen [place])documented in this encounter Medications at Time of [...] Component Value Ref Test Analysis Performed At [facility] [place] Method Time Signature Copath Report Patient Name: MARLON BENTON MR#: [id number] Specimen #: [id number] Collected: 08/18/2020 Received: 08/18/2020 Reported: 08/19/2020 09:46 [...] of this testing was completed at the General acute hospital, with the professional compo nent performed at the [facility], [address] [place] [phone] ([phone]) CPT Codes: A: 65139-HA0 B: 57030-TP3 COLLECTION SITE: Client: [facility] Specimen (Source) Anatomical Collection Method Collection Time Re ceived Time Location / / Volume Laterality Polyp LARGE INTESTINE 08/18/2020 1:23 PM PART / Unknown CDT Polyp LARGE INTESTINE 08/18/2020 1:32 PM (morphologic PART / Unknown CDT abnormality) Hallie Rivera MD [facility] Performing Organization Address City/State/ZIP Code Phon e Number [place] COLONOSCOPY (08/18/2020 1:07 PM CDT) [facility] Method Time Signature COLONOSCOPY [facility] RAD IOLOGY RESULTS Patient Name: Marlon Benton ?Procedure Date: 08/18 1:07 PM ? Accou nt Number: [id number] Date of : 1950 ?Admit Type: Out [...] and ?oxygen saturations were monitored continuously. The ?[employer] Adult Colonoscope, Model # CF-LF572L, ?Endora # 222, SN # [id number] was introduced through ?the anus and advanced [...] Procedure Code(s): ? --- Professional --- ? [address]696, Colonoscopy, flexible; with removal of tumor (s), polyp(s), or ? other lesion(s) by snare technique Diagnosis Code(s): ? --- Professional --- ? K63.5, Polyp of colon CPT copyright 2019 [employer]. All rights reserved. The codes documented in this report are prelimin tarah and upon high tension tester review may be revised to meet current compliance requirements. Electronically signed by Hallie Rivera MD Hallie Rivera MD 08/18/2020 1:41:27 PM I was physically present for the entire viewing portion of t he exam. Hallie Rivera MD Number of Addenda: 0 Note Initiated On: 08/18/2020 1:07 PM MRN: ?[id number] Procedure Date: ? 08/18/2020 1:07:30 PM Scope [...] For ordered IV doses 0.1-2mg give I BLASTING HELPER. Give each 0.4mg over 15 seconds in [...]
Post-procedure documented in this encounter Care Teams Seconds Inspector Relationship Specialty Start Date End Date No Ref-Primary, Physician PCP - General 07/15/20 Savanah Gaming PA-C Assigned PCP 06/24/20 08/25/20 [address] [place] [address] documented as of this encounter
--- OUTSIDE RECORDS SUMMARY | 2022-01-05 09:57 | XMS_ITS | Encounter Summary ---
:1950 Author Organization [place] Address [address] [place] [address] Care Team Providers Name Role Phone No Ref-Primary, Physician Primary Care Provider [phone] Savanah Gaming PA-C Unavailable [phone] Encounter Details Date Type Department Care Team [...] filedocumented in this encounter Care Teams Patient Accounts Manager Relationship Specialty Start Date End Date No Ref-Primary, Physician PCP - General 07/15/20 Savanah Gaming PA-C Assigned PCP 06/24/20 08/25/20 [address] [place] [address] documented as of this encounter
--- OUTSIDE RECORDS SUMMARY | 2022-01-05 09:57 | XMS_ITS | Encounter Summary ---
:1950 Author Organization [place] Address [facility] [place] [address] Care Team Providers Name Role Phone No Ref-Primary, Physician Primary Care Provider [phone] Savanah Gaming PA-C Unavailable [phone] Reason for Visit Auth/Cert Specialty Diagnoses / Procedures Referred By Contact Refer red To Contact Gastroenterology Diagnoses Hx of colonic polyps Hx of colonic polyps [Z86.010] Rh Endoscopy Procedures HC COLONOSCOPY W/WO BRUSH/WASH COLONOSCOPY [address] [place] [address] Phone: Fax: Referral ID Status Reason Start Date Expiration Date Visits Requ ested Visits Authorized [id number] 1 1 Encounter Details Date Type Department Care Team Description 08/18/2020 Hospital Encounter [facility] Hallie Rivera , Endoscopy Evy HOOVER [address] [place], [place] GASTROINTESTINAL [address] [address] [place] [address] [place], [place] [id number] (Wo rk) Social History Tobacco Use Types [...] through Care Everywhere. Diverticulosis and Diverticulitis, Understanding ([place])Diet, High-Fiber ([place])Colon and Rectal Polyps, Understanding ([place])documented in this encounter Medications at Time of [...] Component Value Ref Test Analysis Performed At [facility] [place] Method Time Signature Copath Report Patient Name: MARLON BENTON MR#: [id number] Specimen #: [id number] Collected: 08/18/2020 Received: 08/18/2020 Reported: 08/19/2020 09:46 [...] of this testing was completed at the [facility], with the professional compo nent performed at the [facility], [address] [place] [phone] ([phone]) CPT Codes: A: 27795-YZ4 B: 55265-JF9 COLLECTION SITE: Client: [facility] Location: [facility] (R) Specimen (Source) Anatomical Collection Method Collection Time Re ceived Time Location / / Volume Laterality Polyp LARGE INTESTINE 08/18/2020 1:23 PM PART / Unknown CDT Polyp LARGE INTESTINE 08/18/2020 1:32 PM (morphologic PART / Unknown CDT abnormality) Hallie [facility]OZ[facility] - [facility] Performing Organization Address City/State/ZIP Code Phon e Number [place] COL[facility] (08/18/2020 1:07 PM CDT) [facility] Method Time Signature COLONOSCOPY [facility] RAD IOLOGY RESULTS Patient Name: Marlon Benton ?Procedure Date: 08/18 1:07 PM ? Accou nt Number: [id number] Date of : 1950 ?Admit Type: Out [...] and ?oxygen saturations were monitored continuously. The ?[employer] Adult Colonoscope, Model # CF-KG523D, ?Endora # 222, SN # [id number] was introduced through ?the anus and advanced [...] Procedure Code(s): ? --- Professional --- ? 73239, Colonoscopy, flexible; with removal of tumor (s), polyp(s), or ? other lesion(s) by snare technique Diagnosis Code(s): ? --- Professional --- ? K63.5, Polyp of colon CPT copyright 2019 [employer]. All rights reserved. The codes documented in this report are prelimin tarah and upon bisque grader review may be revised to meet current compliance requirements. Electronically signed by Hallie Rivera MD Hallie Rivera MD 08/18/2020 1:41:27 PM I was physically present for the entire viewing portion of t he exam. Hallie Rivera MD Number of Addenda: 0 Note Initiated On: 08/18/2020 1:07 PM MRN: ?[id number] Procedure Date: ? 08/18/2020 1:07:30 PM Scope [...] For ordered IV doses 0.1-2mg give I FIRE EXTINGUISHER TESTER. Give each 0.4mg over 15 seconds in [...]
Post-procedure documented in this encounter Care Teams Horticulturalist Relationship Specialty Start Date End Date No Ref-Primary, Physician PCP - General 07/15/20 Savanah Gaming PA-C Assigned PCP 06/24/20 08/25/20 [address] [place] [address] documented as of this encounter
--- OUTSIDE RECORDS SUMMARY | 2022-01-05 09:57 | XMS_ITS | Encounter Summary ---
:1950 Author Care Team Providers Name Role Phone Estela Elaine MD Primary Care Provider [phone] Reason for Visit Nurse Visit: Bladder Scan Assessment and Plan 1. Urinary tract infectious disease ? urinalysis, dipstick ? culture, urine 2. Retention of urine Discussion Note: None recorded.Patient educational handouts: No information available. Plan of Care Reminders Provider Appointments [place] [address] 01/20/2022 Keagan Wallace MD 12:30PM ? Established 01/23/2022 Tasia Gottlieb, 10:00AM [facility] ? Established 03/03/2022 1:00PM [facility] Urinalysis, Dipstick 10/14/2021 [facility] ? Culture, Urine 10/14/2021 [facility] Referral None [...] -[facility]: [address] [address], [place] ? ? UR ? Appearance clear clear Final [place] -[facility]: [address] [address], [place] ? ? UR ? Glucose negative negative Final [place] -[facility] mg/dL mg/dL [facility]: [address] ? ? UR ? Bilirubin negative negative Final [place] [facility]: [address] [address], [place] ? ? UR ABNORMAL Ketones trace mg/dL negative Final [place] -[facility] mg/dL [facility]: [address] [address], [place] ? ? UR ? Sp. [place] 1.025 1.010-1.0 Final [place] -[facility] 25 [facility]: [address] ? ? UR ? pH -[facility] 5.5 5.0-8.0 Final [place] [facility]: [address] [address], [place] ? ? UR ABNORMAL Protein 30 mg/dL negative Final [place] [facility] mg/dL [facility]: [address] [address], [place] ? ? UR ? Urobilinogen 0.2 normal Final [place] -[facility]: [address] [address], [place] ? ? UR ? Nitrites negative negative Final [place] [facility]: [address] [address], [place] ? ? UR ABNORMAL Blood large negative Final [place] -[facility]: [address] [address], [place] ? ? UR ABNORMAL Leukocytes large negative Final [place] -[facility]: [address] [address], [place] ? ? UR ? Performed by christie Fabian ? Final [place] [facility]: [address] [address], [place] ? ? UR ? Total Urine 40 /mL ? Final [place] Volume (mL) [facility]: [address] 10/14/2021 Culture, UR ? Final Report microbiology ? Final [place] U[facility] results [facility]: [address], [place] Allergies None recorded. Problems None recorded. Procedures [...] Retent ion of Urine Keagan Wallace MD: [address] [place] [phone], Ph. 10/14/2021 Raised Prostate Specific Antigen Keagan Wallace MD: [address] [place] [address], [address] [phone], Ph. 09/15/2021 Dysuria Keagan Wallace MD: [address] [place] [address], [address] [phone], Ph. History of Present Illness None recorded. Review of Systems None recorded. Physical Exam None recorded.
--- OUTSIDE RECORDS SUMMARY | 2022-01-05 09:57 | XMS_ITS ---
:1950 Author Care Team Providers Name Role Phone EILEEN ARECHIGA MD Primary Care Provider [phone] Allergies None recorded. Medications Name Status Start [...] -[facility]: [address] [address], [place] ? ? UR ABNORMA Appearance turbid clear Final [place] L -[facility]: [address] [facility] [address], [place] ? ? UR ? Glucose negative negative Final [place] [facility] mg/dL mg/dL [facility]: [address] [address], [place] ? ? UR ? Bilirubin negative negative Final [place] [facility]: [address] [facility] [address], [place] ? ? UR ? Ketones negative negative Final [place] [facility] mg/dL mg/dL [facility]: [address] [place] [address], [place] ? ? UR ? Sp. [place] <=1.005 1.010-1.0 Final [place] -[facility] 25 [facility]: [address] [place] [address] ? ? UR ? pH -[facility] 5.0 5.0-8.0 Final [place] [facility]: [address] [place] [address], [place] ? ? UR ? Protein negative negative Final [place] [facility] mg/dL mg/dL [facility]: [address] [place] [address] ? ? UR ? Urobilinogen 0.2 normal Final [place] -[facility]: [address] [place] [address] ? ? UR ABNORMA Nitrites positive negative Final [place] -[facility]: [address] [place] [address] ? ? UR ABNORMA Blood moderate negative Final [place] L -[facility]: [address] [place] [address] ? ? UR ABNORMA Leukocytes large negative Final [place] -[facility]: [address] [place] [address] ? ? UR ? Performed by aida Alvares ? Final [place] [facility]: [address] [place] [address] ? ? UR ? Total Urine 20 /mL ? Final [place] Volume (mL) [facility]: [address] [place] [address] 11/28/2021 Urinalysis, ABNORMA U-WBC 50 - 100 0 - 2 Final [place] [facility] [hpf] [hpf] [facility]: [address] [place] [address] ? ? ? U-RBC 0 - 2 [hpf] 0 - 2 Final [place] [hpf] [facility]: [address] [place] [address] ? ? ABNORMA Bacteria large [hpf] negative Final [place] L [hpf] [facility]: [address] [place] [address] ? ? ? Squamous Epi small /lpf negative, Fin al [place] small [facility] - /lpf [facility]: [address], [place] 11/28/2021 Culture, UR ABNORMA Final Report microbiolog ? Final [place] Urine L y results [facility]: [address], [place] 11/02/2021 Prostate Cnb ? Report Title comment [...] -[facility]: [address] ? ? UR ? Appearance clear clear Final [place] -[facility]: [address] ? ? UR ? Glucose negative negative Final [place] -[facility] mg/dL mg/dL [facility]: [address] ? ? UR ? Bilirubin negative negative Final [place] [facility] [address] ? ? UR ABNORMA Ketones trace mg/dL negative Final [place] L -[facility] mg/dL [facility] [address] ? ? UR ? Sp. [place] 1.025 1.010-1.0 Final [place] [facility] 25 [facility]: [address] ? ? UR ? pH -[facility] 5.5 5.0-8.0 Final [place] [facility]: [address] ? ? UR ABNORMA Protein 30 mg/dL negative Final [place] L -[facility] mg/dL [facility]: [address] ? ? UR ? Urobilinogen 0.2 normal Final [place] [facility]: [address] ? ? UR ? Nitrites negative negative Final [place] -[facility]: [address] [place] [address], [place] ? ? UR ABNORMA Blood large negative Final [place] -[facility]: [address] [place] [address], [place] ? ? UR ABNORMA Leukocytes large negative Final [place] L -[facility]: [address] [place] [address], [place] ? ? UR ? Performed by christie Y ? Final [place] [facility]: [address] [place] [address], [place] ? ? UR ? Total Urine 40 /mL ? Final [place] Volume (mL) [facility]: [address] [place] [address] 10/14/2021 Urinalysis, ABNORMA U-WBC packed 0 - 2 Final [place] [facility] [hpf] [hpf] [facility]: [address] [place] [address], [place] ? ? ABNORMA U-RBC 2 - 5 [hpf] 0 - 2 [facility]: [address] [place] [address] ? ? ABNORMA Bacteria moderate negative Final [place] L [hpf] [hpf] [facility]: [address] [place] [address] ? ? ? Squamous Epi negative negative, Final [place] [facility] - /lpf [facility]: [address] [place] [address], [place] 10/14/2021 PSA, Total, BLDV ? PSA, Total 1.43 NG/mL 0.00-4 .00 Final [place] Serum or NG/mL [facility] - Plasma [facility]: [address] [place] [address] 10/14/2021 Culture, UR ? Final Report microbiolog ? Final [place] Urine y results [facility]: [address] [place] [address] 09/15/2021 Urinalysis, UR ? Color yellow yellow Final [place] Dipstick -[facility]: [address] [place] [address] ? ? UR ABNORMA Appearance cloudy clear Final [place] L -[facility]: [address] [place] [address] ? ? UR ? Glucose negative negative Final [place] [facility] mg/dL mg/dL [facility]: [address] [place] [address] ? ? UR ? Bilirubin negative negative Final [place] [facility]: [address] [address], [place] ? ? UR ? Ketones negative negative Final [place] [facility] mg/dL mg/dL [facility]: [address] [address], [place] ? ? UR ? Sp. [place] 1.025 1.010-1.0 Final [place] [facility] 25 [facility]: [address] [address], [place] ? ? UR ? pH -[facility] 6.0 5.0-8.0 Final [place] [facility]: [address] [address], [place] ? ? UR ABNORMA Protein 30 mg/dL negative Final [place] L -[facility] mg/dL [facility]: [address] [address], [place] ? ? UR ? Urobilinogen 0.2 normal Final [place] [facility]: [address] ? ? UR ? Nitrites negative negative Final [place] [facility]: [address] ? ? UR ABNORMA Blood moderate negative Final [place] L -[facility]: [address] [address], [place] ? ? UR ABNORMA Leukocytes large negative Final [place] -[facility]: [address] [address], [place] ? ? UR ? Performed by jasmyne Bustillos ? Final [place] [facility]: [address] ? ? UR ? Total Urine 60 /mL ? Final [place] Volume (mL) [facility]: [address] 09/15/2021 Urinalysis, ABNORMA U-WBC packed 0 - 2 Final [place] [facility] [hpf] [hpf] [facility]: [address] ? ? ABNORMA U-RBC 2 - 5 [hpf] 0 - 2 Final [place] L [hpf] [facility]: [address] ? ? ABNORMA Bacteria small [hpf] negative Final [place] L [hpf] [facility]: [address] [address], [place] ? ? ? Squamous Epi negative negative, Final [place] /lpf small [facility] - /lpf [facility]: [address] [address], [place] 09/15/2021 Culture, UR ? Final Report microbiolog ? Final [place] Urine y results [facility]: [address] [place] [address] 09/09/2021 Urinalysis, UR ? Color yellow yellow Final [place] Dipstick -[facility]: [address] [place] [address], [place] ? ? UR ? Appearance clear clear Final [place] [facility]: [address] [place] [address] ? ? UR ? Glucose negative negative Final [place] [facility] mg/dL mg/dL [facility]: [address] [place] [address] ? ? UR ? Bilirubin negative negative Final [place] [facility]: [address] [place] [address] ? ? UR ? Ketones negative negative Final [place] [facility] mg/dL mg/dL [facility]: [address] [place] [address] ? ? UR ? Sp. [place] 1.020 1.010-1.0 Final [place] -[facility] 25 [facility]: [address] [place] [address] ? ? UR ? pH -[facility] 5.5 5.0-8.0 Final [place] [facility]: [address] ? ? UR ABNORMA Protein 30 mg/dL negative Final [place] L -[facility] mg/dL [facility]: [address] [address], [place] ? ? UR ? Urobilinogen 0.2 normal Final [place] [facility]: [address] ? ? UR ? Nitrites negative negative Final [place] [facility]: [address] [address], [place] ? ? UR ABNORMA Blood moderate negative Final [place] L -[facility]: [address] ? ? UR ABNORMA Leukocytes large negative Final [place] -[facility]: [address] [address], [place] ? ? UR ? Performed by sylvester Case ? Final [place] [facility]: [address] [place] [address], [place] ? ? UR ? Total Urine 80 /mL ? Final [place] Volume (mL) [facility]: [address] [place] [address] 09/09/2021 Urinalysis, ABNORMA U-WBC 50 - 100 0 - 2 Final [place] [facility] [hpf] [hpf] [facility]: [address] [place] [address], [place] ? ? ? U-RBC 0 - 2 [hpf] 0 - 2 Final [place] [hpf] [facility]: [address] [place] [address], [place] ? ? ABNORMA Bacteria small [hpf] negative Final [place] L [hpf] [facility]: [address] [place] [address], [place] ? ? ? Squamous Epi small /lpf negative, Fin al [place] small [facility] - /lpf [facility]: [address] [place] [address], [place] Past Encounters 11/28/2021 Retention of Urine Keagan Wallace MD: [address] [place] [phone], Ph. 11/02/2021 Prostate Nodule; Recurrent Urinary Tract Infection; Prostatitis Keagan Wallace MD: [address] [place] [phone], Ph. 11/02/2021 Raised Prostate Specific Antigen Keagan Wallace MD: [address] [place] [phone], Ph. 10/14/2021 Urinary Tract Infectious Disease; Retent ion of Urine Keagan Wallace MD: [address] [place] [phone], Ph. 10/14/2021 Raised Prostate Specific Antigen Keagan Wallace MD: [address] [place] [phone], Ph. 09/15/2021 Dysuria Keagan Wallace MD: [address] [place] [phone], Ph. 09/09/2021 Prostatitis; Incomplete Emptying of Blad alen; Prostate Nodule Keagan Wallace MD: [address] [facility], [address], [place] [address], Ph. Social History Tobacco Smoking Status Never [...]
--- OUTSIDE RECORDS SUMMARY | 2022-01-05 09:57 | XMS_ITS | Encounter Summary ---
:1950 Author Organization [facility] Address [address] [place] [address] Care Team Providers Name Role Phone No Ref-Primary, Physician Primary Care Provider [phone] Savanah Gaming PA-C Unavailable [phone] Encounter Details Date Type Department Care Team [...] on filedocumented in this encounter Care Teams Developer Relations Manager Relationship Specialty Start Date End Date No Ref-Primary, Physician PCP - General 07/15/20 Savanah Gaming PA-C Assigned PCP 06/24/20 08/25/20 [address] [place] [address] documented as of this encounter
--- OUTSIDE RECORDS SUMMARY | 2022-01-05 09:57 | XMS_ITS | Encounter Summary ---
:1950 Author Organization [facility] Address [address] [place] [address]. [place] [address] Care Team Providers Name Role Phone No Ref-Primary, Physician Primary Care Provider [phone] Savanah Gaming PA-C Unavailable [phone] Encounter Details Date Type Department Care Team Description 08/05/2020 Orders Only [facility] Francisco Peguero for screening Clinic Antonette Morrow MD for other viral [id number] [place] [address] [facility] [place], [place] GASTROINTESTINAL [phone] [address] [phone] [place] [address] Social History Tobacco Use Types Packs/Day Years Used Date Former Smoker 2 20 04/02/1971 - 0 04/02/1991 Smokeless Tobacco: Never Used Alcohol Use Standard Drinks/Week Comments Yes 0 (1 standard drink = 0.6 oz pure alcoho l) [facility] Alcohol Habits Answer Date Recorded How [...] Range Method Time Signature COVID-19 Nasopharyngeal 08/14/2020 [place] Virus PCR to 8:51 AM CDT [facility] Source COVID-19 Test received-See 08/14/2020 INFECTIOUS Virus PCR to reflex to IDDL 1:05 PM CDT [facility] - test SARS CoV2 DIAGNOSTIC Result (COVID-19) Virus LABORATORY, RT-PCR [facility] Specimen (Source) Anatomical Collection Method Collection Time Re ceived Time Location / / Volume Laterality Specimen from 08/14/2020 8:50 08/14/2020 nasopharyngeal AM CDT 8:51 AM CDT structure (specimen) Francisco Peguero MD LAB - MICRO GENERAL ORDERABL ES Performing Organization Address City/State/ZIP Code Phon e Number INFECTIOUS DISEASES [address] [place] [address] DIAGNOSTIC LABORATORY, [facility] [id number] [facility] [phone] documented in this encounter Visit Diagnoses Diagnosis Encounter for screening for other viral diseases documented in this encounter Care Teams Lighter Captain Relationship Specialty Start Date End Date No Ref-Primary, Physician PCP - General 07/15/20 Savanah Gaming PA-C Assigned PCP 06/24/20 08/25/20 [address] [place] [address] documented as of this encounter
--- OUTSIDE RECORDS SUMMARY | 2022-01-05 09:57 | XMS_ITS | Encounter Summary ---
:1950 Author Care Team Providers Name Role Phone Estela Elaine MD Primary Care Provider [phone] Reason for Visit Injection Assessment and Plan 1. Raised prostate specific antigen ? ceftriaxone 1 gram solution for injec tion Discussion Note: None recorded.Patient educational handouts: No information available. Plan of Care Reminders Provider Appointments [facility] 90 01/20/2022 12:30PM Keagan Monroy MD ? Established 01/23/2022 10:00AM ESTUARDO [facility] ? Established 03/03/2022 1:00PM [facility] None recorded. ? ? Referral None [...] Urinary Tract Infection; Prostatitis Keagan Wallace MD: [address] [place] [phone], Ph. 11/02/2021 Raised Prostate Specific Antigen Keagan Wallace MD: [address] [place] [phone], Ph. 10/14/2021 Raised Prostate Specific Antigen Keagan Wallace MD: [address] [place] [phone], Ph. 10/14/2021 Urinary Tract Infectious Disease; Retent ion of Urine Kegaan Wallace MD: [address] [place] [phone], Ph. History of Present Illness None recorded. Review of Systems None recorded. Physical Exam None recorded.
--- OUTSIDE RECORDS SUMMARY | 2022-01-05 09:57 | XMS_ITS | Encounter Summary ---
:1950 Author Organization [place] Address [facility]0 [facility] [place] [address] Care Team Providers Name Role Phone No Ref-Primary, Physician Primary Care Provider [phone] Savanah Gaming PA-C Unavailable [phone] Reason for Visit Reason Comments UTI Encounter Details Date Type Department Care Team Description 08/09/2020 Office Visit [facility] Earnestine Glaser, Dysuria (Primary Dx); Urgent Care Irma rosenberg MD Nonspecific finding on examination of ur ine; [address] Fatigue, unspecified type; [place], [place] [address] Atrial fibrillation, unspecified type (H ) [address] [place], [place] [phone] [address] Social History Tobacco Use Types Packs/Day Years Used Date Former Smoker 2 20 04/02/1971 - 0 04/02/1991 Smokeless Tobacco: Never Used Alcohol Use Standard Drinks/Week Comments Yes 0 (1 standard drink = 0.6 oz pure alcoho l) [facility] Alcohol Habits Answer Date Recorded How often [...] - *UA reflex to Microscopic and Culture ([place] [facility] (except Antonette Fernando and Sh[place]) - [...] Signature Sodium 139 133 - 144 08/09/2020 [facility] mmol/L 2:24 PM CDT [facility] Potassium 4.2 3.4 - 5.3 08/09/2020 [facility] mmol/L 2:24 PM [facility] Chloride 108 94 - 109 08/09/2020 [facility] mmol/L 2:24 PM [facility] Carbon Dioxide 22 20 - 32 08/09/2020 [facility] mmol/L 2:26 PM [facility] Anion Gap 9 3 - 14 08/09/2020 [facility] mmol/L 2:26 PM [facility] Glucose 125 (H) 70 - 99 08/09/2020 [facility] mg/dL 2:26 PM [facility] Urea Nitrogen 24 7 - 30 08/09/2020 [facility] mg/dL 2:26 PM [facility] Creatinine 0.87 0.66 - 08/09/2020 [facility] 1.25 mg/dL 2:26 PM [facility] GFR Estimate 87 >60 08/09/2020 [place] mL/min/{1. 2:26 PM [facility] 73_m2} HOSPITAL Comment: Non GFR Calc Starting 03/19/2018, serum creatinine ba sed estimated GFR (eGFR) will be calculated using the Chronic Kidney Dise [facility] Epidemiology Collaboration (CKD-EPI) equation. GFR Estimate If >90 >60 mL/min/{1.73_m2} 08/09/2020 2: 26 PM [facility] Comment: GFR Calc Starting 03/19/2018, serum creatinine ba sed estimated GFR (eGFR) will be calculated using the Chronic Kidney Dise [facility] Epidemiology Collaboration (CKD-EPI) equation. Calcium 9.5 8.5 - 10.1 08/09/2020 2:26 PM [place] R IDGES mg/dL [facility] Bilirubin Total 1.8 (H) 0.2 - 1.3 mg/dL 08/09/2020 2:30 PM [facility] Albumin 3.3 (L) 3.4 - 5.0 g/dL 08/09/2020 2:30 PM [facility] Protein Total 7.3 6.8 - 8.8 g/dL 08/09/2020 2:30 PM [facility] Alkaline Phosphatase 90 40 - 150 U/L 08/09/2020 2:30 PM [facility] ALT 22 0 - 70 U/L 08/09/2020 2:30 PM [facility] AST 11 0 - 45 U/L 08/09/2020 2:30 PM [facility] Specimen Anatomical Collection Method Collection Time Receive d Time (Source) Location / / Volume Laterality Blood 08/09/2020 12:20 08/09/2020 PM CDT 12:21 PM CDT Earnestine Glaser MD LAB - BLOOD ORDERABLES Performing Organization Address City/State/ZIP Code Phon e Number [facility] [address] [place], [place] [address] [facility] [address] [place], [place] [address] [place] [address] CBC with platelets and differential (08/09/2020 12:20 PM CDT) [facility] gist Method Time Signature WBC 10.7 4.0 - 08/09/2020 [facility] 11.0 2:18 PM CDT CLINICS 10e9/L [place] RBC Count 5.53 4.4 - 5.9 08/09/2020 [facility] 10e12/L 2:18 PM CDT [facility] [place] Hemoglobin 16.8 13.3 - 08/09/2020 [facility] 17.7 g/dL 2:18 PM CDT [facility] [place] Hematocrit 50.8 40.0 - 08/09/2020 [facility] 53.0 % 2:18 PM CDT [facility] [place] MCV 92 78 - 100 08/09/2020 [facility] fl 2:18 PM CDT [facility] [place] MCH 30.4 26.5 - 08/09/2020 [facility] 33.0 pg 2:18 PM CDT [facility] [place] MCHC 33.1 31.5 - 08/09/2020 [facility] 36.5 g/dL 2:18 PM CDT [facility] [place] RDW 14.4 10.0 - 08/09/2020 [facility] 15.0 % 2:18 PM CDT [facility] [place] Platelet Count 196 150 - 450 08/09/2020 [facility] 10e9/L 2:18 PM CDT [facility] [place] % Neutrophils 72.2 % 08/09/2020 [place] 2:18 PM CDT [facility] [place] % Lymphocytes 16.6 % 08/09/2020 [place] 2:18 PM CDT [facility] [place] % Monocytes 9.7 % 08/09/2020 [place] 2:18 PM CDT [facility] [place] % Eosinophils 1.3 % 08/09/2020 [place] 2:18 PM CDT [facility] [place] % Basophils 0.2 % 08/09/2020 [place] 2:18 PM CDT [facility] [place] Absolute 7.7 1.6 - 8.3 08/09/2020 [place] Neutrophil 10e9/L 2:18 PM CDT [facility] Absolute 1.8 0.8 - 5.3 08/09/2020 [place] Lymphocytes 10e9/L 2:18 PM CDT [facility] Absolute 1.0 0.0 - 1.3 08/09/2020 [place] Monocytes 10e9/L 2:18 PM CDT [facility] Absolute 0.1 0.0 - 0.7 08/09/2020 [place] Eosinophils 10e9/L 2:18 PM CDT [facility] Absolute 0.0 0.0 - 0.2 08/09/2020 [place] Basophils 10e9/L 2:18 PM CDT [facility] Diff Method Automated 08/09/2020 [place] Method 2:18 PM CDT [facility] Specimen Anatomical Collection Method Collection Time Receive d Time (Source) Location / / Volume Laterality Blood 08/09/2020 12:20 08/09/2020 PM CDT 12:21 PM CDT Earnestine Glaser MD LAB - BLOOD ORDERABLES Performing Organization Address City/State/ZIP Code Phon e Number [facility] [address] [place] [address] EKG 12-lead complete w/read - Clinics (08/09/2020 12:01 PM CDT) Narrative This result has an attachment that is no t available. Earnestine Glaser MD ECG ORDERABLES Urine Culture Aerobic Bacterial (08/09/2020 10:54 AM CDT) Component Value Ref Test Analysis Performed At [facility] Range Method Time Signature Specimen Midstream Urine INFECTIOUS Description DISEASES DIAGNOSTIC LABORATORY, [facility] Culture Micro 50,000 to 100,000 colonies/mL 2020 INFECTIOUS mixed urogenital cristian 10:03 PM DISEASE S Susceptibility testing not routinely done CDT DIAGNOSTIC LABORATORY, [facility] Specimen (Source) Anatomical Collection Method Collection Time Re ceived Time Location / / Volume Laterality Examination of 08/09/2020 10:54 midstream urine AM CDT 11:28 AM CDT specimen (procedure) Earnestine Glaser MD LAB - MICRO GENERAL ORDERABL ES Performing Organization Address City/State/ZIP Code Phon e Number [facility] [address] [facility] [address] [address] LABORATORY, [facility] (ABNORMAL) Urine Microscopic (08/09/2020 10:54 AM CDT) Patholo gist Method Time Signature WBC Urine >100 (A) OTO5^0 - 08/09/2020 [place] 5 /HPF 11:15 AM CDT [facility] RBC Urine 2-5 (A) OTO2^O - 08/09/2020 [place] 2 /HPF 11:15 AM CDT [facility] Squamous Few FEW^Few 08/09/2020 [place] Epithelial /LPF 11:15 AM CDT CLINICS /LPF Urine [place] Bacteria Urine Moderate (A) NEG^Negat 08/09/2020 [place] husam /HPF 11:15 AM CDT [facility] Specimen Anatomical Collection Method Collection Time Receive d Time (Source) Location / / Volume Laterality 08/09/2020 10:54 08/09/2020 AM CDT 10:55 AM CDT Earnestine Glaser MD LAB - URINE ORDERABLES Performing Organization Address City/[facility] [address]/ZIP Code Phon e Number [facility] [address] [place], [place] [phone] (ABNORMAL) *UA reflex to Microscopic and Culture ([place] [facility] [place] [facility] (08/09/2020 10:54 AM CDT) Patholo gist Method Time Signature Color Urine Yellow 08/09/2020 [place] 11:15 AM CDT [facility] Appearance Clear 08/09/2020 [place] Urine 11:15 AM CDT [facility] Glucose Urine Negative NEG^Negat 08/09/2020 [place] husam mg/dL 11:15 AM CDT [facility] Bilirubin Moderate (A) NEG^Negat 08/09/2020 [place] Urine husam 11:15 AM CDT [facility] Comment: This is an unconfirmed screenin g test result. A positive result may be false. Ketones Urine >=80 (A) NEG^Negative mg/dL 08/09/2020 11:15 [facility] CDT [facility] Specific Hensel >1.030 1.003 - 1.035 08/09/2020 11:15 [facility] Urine AM CDT [facility] [place] Blood Urine Large (A) NEG^Negative 08/09/2020 11:15 [facility] CDT [facility] pH Urine 5.5 5.0 - 7.0 pH 08/09/2020 11:15 [facility] CDT [facility] Protein Albumin >=300 (A) NEG^Negative mg/dL 08/09/2020 11:1 5 [place] Urine CDT [facility] Urobilinogen Urine 1.0 0.2 - 1.0 EU/dL 08/09/2020 11:1 5 [facility] CDT [facility] [place] Nitrite Urine Negative NEG^Negative 08/09/2020 11:15 [facility] AM CDT [facility] Leukocyte Esterase Large (A) NEG^Negative 08/09/2020 11:15 [facility] Urine AM CDT [facility] [place] Source Midstream Urine 08/09/2020 10:55 [facility] CDT [facility] Specimen (Source) Anatomical Collection Method Collection Time Re ceived Time Location / / Volume Laterality Examination of 08/09/2020 10:54 midstream urine AM CDT 10:55 AM CDT specimen (procedure) Earnestine Glaser MD LAB - URINE ORDERABLES Performing Organization Address City/State/ZIP Code Phon e Number [facility] [address] [place] [address] documented in this encounter Visit Diagnoses Diagnosis Dysuria - Primary Nonspecific finding on examination of ur ine Other nonspecific finding on examination of urine Fatigue, unspecified type Atrial fibrillation, unspecified type (H ) documented in this encounter Care Teams Cut Out Machine Operator Relationship Specialty Start Date End Date No Ref-Primary, Physician PCP - General 07/15/20 Savanah Gaming PA-C Assigned PCP 06/24/20 08/25/20 [address] [place] [address] documented as of this encounter
== END 2022-01-04 07:33 | disposition home or self-care (01) ==
LOC: FRMREF 01-05 09:54
PROVIDERS: PCP Family Medicine; Visit Provider Physician Assistant Medical
DX: N39.0 Urinary tract infection, site not specified (principal)
CPT/HCPCS: 87086; 87186

== ENCOUNTER 2022-01-16 08:57 | Outpatient (CLI) | payer MEDICARE, SELFPAY ==
--- OUTSIDE RECORDS SUMMARY | 2022-01-16 09:01 | XMS_ITS | Encounter Summary ---
:1950 Author Organization [place] Address [address] [place] [address] Care Team Providers Name Role Phone No Ref-Primary, Physician Primary Care Provider Lino Radford DO Unavailable Wilian Castañeda MD Unavailable Reason for Visit Reason Comments Hematuria Encounter Details Date Type Department Care Team Description 11/04/2020 Emergency [facility] Silvio Garcia, YANIC EMERGENCY PHYS.[facility] [address] [place] [address] Urinary tract [facility] Emergency Dep Lowell Alberto APRN [facility] [address] [place], [place] [id number] infection [address] [place] [address] Social History Tobacco Use Types Packs/Day Years Used Date Smoking Tobacco: Former Cigarettes 2 04/1971 - 04/02/1991 Smokeless Tobacco: Never Alcohol Use Standard Drinks/Week Comments Yes 0 (1 standard drink = 0.6 oz pure alcoho l) occ Sex Assigned at Date Recorded Male 08/29/2020 [...] through Care Everywhere. Bladder Infection, Male (Adult) (Montserr[place]ian)documented in this encounter Medications at Time of [...] the hematuria began on 10/27/20 after his box builder prescribed him Eliquis and Coreg for an upcoming cardioversion at the end of October. He reports that the blood in his urine has increased everyday since starting his medications. He notes that his box builder's nurse was concerned for a UTI, so he presented to a [facility] that directed him here to [...] contact Emergency Department Course Laboratory: UA: Color: Tyrrell(A), Appearance: Cloudy(A), Blood: Large(A), Protein Albumin: 70(A), Leukocyte Esterase: Large(A), WBC: >182(H), WBC clumps: Present(A), RBC: >182(H), Yeast: Many(A), Mucus: Present(A), o/w Negative Urine Culture Aerobic Bacterial: Pending Emergency Department Course: Reviewed: I reviewed nursing notes, vitals, past medical history and care everywhere Assessments: 1712 I obtained history and examined the patient [...] checked for urinary tract infection by his box builder's nurse. His examination shows no physical findings. [...] to me. Lowell Ramos APRN CNP 11/04/20 3267 documented in this encounter Plan of Treatment [...] (ABNORMAL) Urine Culture (11/04/2020 3:56 PM CDT) [facility] Method Time Signature Culture >100,000 CFU/mL [...] Code Phon e Number [facility] [place] [address]. [address] [facility], Room D297 [facility] Infectious [place], [place] [phone] Diseases Diagnostic [phone], [facility] Lab (IDDL) [address] [facility], Room D297 (ABNORMAL) UA with Microscopic reflex to Culture (11/04/2020 3:56 PM CDT) [facility] Method Time Signature Color Urine Tyrrell (A) Colorless, 11/04/2020 [facility] Straw, 4:37 PM CDT Light Yellow, Yellow Appearance Urine Cloudy (A) Clear 11/04/2020 [facility] RY 4:37 PM CDT Glucose Urine Negative Negative 11/04/2020 [facility] mg/dL 4:37 PM CDT Bilirubin Urine Negative Negative 11/04/2020 [facility] 4:37 PM CDT Ketones Urine Negative Negative 11/04/2020 [facility] mg/dL 4:37 PM CDT Specific [place] 1.019 1.003 - 11/04/2020 [facility]ORATOR Y Urine 1.035 4:37 PM CDT Blood Urine Large (A) Negative 11/04/2020 [facility]ATORY 4:37 PM CDT pH Urine 5.5 [...] Collection / CDT PM CDT Unknown Narrative LABORATORY - 11/04/2020 4:37 PM CDT Urine Culture ordered based on laborator y criteria Violet Garcia PA-C LAB - URINE ORDERABLES Performing Organization Address City/State/ZIP Code [place] [address] Care Lab [address] [facility] (1st floor, no room number) [...] Infection documented in this encounter Care Teams Unit Secretary Relationship Specialty Start Date End Date No Ref-Primary, Physician PCP - General 07/15/20 Lino Radford DO Assigned PCP 08/26/20 [address] [place] [address] Wilian Castañeda MD Assigned Heart and Vascular 09/12/20 [address] [facility] Provider [address] [address] documented as of this encounter
--- OUTSIDE RECORDS SUMMARY | 2022-01-16 09:01 | XMS_ITS | Clinical Summary ---
:1950 Author Organization [place] Address [address] [place] [address] Care Team Providers Name Role Phone No Ref-Primary, Physician Primary Care Provider [phone] Lino Radford DO Unavailable Wilian Castañeda MD Unavailable Justine Laurent PA-C Unavailable [phone] Allergies No known active allergies Medications [...] FIT-DNA (Cologuard) 1950 FLEX SIG 1950 HEPATITIS B IMMUNIZATION (1 1950 of 3 - 3-dose series) HEPATITIS C SCREENING 1968 LIPID 1985 LUNG [...] AORTIC ANEURYSM SCREENING Completed 07/15/2020 (SYSTEM ASSIGNED) IPV IMMUNIZATION Aged Out No longer eligi ble based on patient's age to complete this to pic MENINGITIS IMMUNIZATION Aged Out No longe r eligible based on patient's age to complete this to pic Insurance Payer Benefit Plan / Subscriber ID Effective Dates Phone Addre ss Type Group BCBS BCBS MEDICARE [id number] 2020-Edd [phone] [address] [address] Medicare ADVANTAGE t 0 [place] [address] Care Teams Short Piece Handler Relationship Specialty Start Date End Date No Ref-Primary, Physician PCP - General 07/15/20 Lino Radford DO Assigned PCP 08/26/20 [address] [place] [address] Wliian Castañeda MD Assigned Heart and Vascular 09/12/20 [address] [place] Provider [address] [address] Justine Laurent, Assigned Surgical Provider 01/02/21 [place] [address] [address]
--- OUTSIDE RECORDS SUMMARY | 2022-01-16 09:01 | XMS_ITS | Encounter Summary ---
:1950 Author Organization [place] Address [address] [place] [address] Care Team Providers Name Role Phone No Ref-Primary, Physician Primary Care Provider [phone] Lino Radford DO Unavailable Wilian Castañeda MD Unavailable Reason for Visit Reason Onset Date Comments Clinic Care Coordination - Follow-up 10/28/2020 Encounter Details Date Type Department Care Team Description 10/28/2020 Telephone [facility] Jerri Rincon, MICHAEL Clinic Care Coordination [facility] [place] - Follow-up [address] [facility] [address] [place] [address] Social History Tobacco Use Types Packs/Day Years Used Date Smoking Tobacco: Former Cigarettes 2 20 04/1971 - 04/02/1991 Smokeless Tobacco: Never Alcohol [...] to last Sunday as planned at last discussion10/29. He complained that when he goes to [...] voiced understanding and agreement with plan. Alan 212 pm Telephone Encounter - Jerri Rincon [...] voiced understanding and agreement with plan. AlbertooRN 1001 am documented in this encounter Plan of Treatment Not on filedocumented as of this encounter Visit Diagnoses Not on filedocumented in this encounter Care Teams Rework Machine Operator Relationship Specialty Start Date End Date No Ref-Primary, Physician PCP - General 07/15/20 Lino Radford DO Assigned PCP 08/26/20 [address] [place] [address] Wilian Castañeda MD Assigned Heart and Vascular 09/12/20 [address] [facility] Provider [address] [address] documented as of this encounter
--- OUTSIDE RECORDS SUMMARY | 2022-01-16 09:01 | XMS_ITS | Encounter Summary ---
:1950 Author Organization [place] Address [address] [place] [address] Care Team Providers Name Role Phone No Ref-Primary, Physician Primary Care Provider [phone] Lino Radford DO Unavailable Wilian Castañeda MD Unavailable Encounter Details Date Type Department Care Team Description 12/02/2020 Medical Correspondence [facility] Scan, CLINIC REFERRAL Health Info [facility] Non-Provider [facility] [address] [place] [address] Social History Tobacco Use Types Packs/Day [...] on filedocumented in this encounter Care Teams Promotions Assistant Relationship Specialty Start Date End Date No Ref-Primary, Physician PCP - General 07/15/20 Lino Radford DO Assigned PCP 08/26/20 [address] [place] [address] Wilian Castañeda MD Assigned Heart and Vascular 09/12/20 [address] [facility] Provider [address] [address] documented as of this encounter
--- OUTSIDE RECORDS SUMMARY | 2022-01-16 09:01 | XMS_ITS | Encounter Summary ---
:1950 Author Organization [place] Address [address] [place] [address] Care Team Providers Name Role Phone No Ref-Primary, Physician Primary Care Provider [phone] Lino Radford DO Unavailable Wilian Castañeda [...] on filedocumented in this encounter Care Teams Fighting Vehicle Infantryman Relationship Specialty Start Date End Date No Ref-Primary, Physician PCP - General 07/15/20 Lino Radford DO Assigned PCP 08/26/20 [address] [place] [address] Wilian Castañeda MD Assigned Heart and Vascular 09/12/20 [address] [facility] Provider [address] [id number] documented as of this encounter
--- OUTSIDE RECORDS SUMMARY | 2022-01-16 09:01 | XMS_ITS | Encounter Summary ---
:1950 Author Organization [facility] Address [address] [place] [address] Care Team Providers Name Role Phone No Ref-Primary, Physician Primary Care Provider [phone] Lino Radford DO Unavailable Wilian Castañeda MD Unavailable Reason for Visit Reason Onset Date Comments Clinic Care Coordination - Follow-up 11/08/2020 blo od in urine---UTI Encounter Details Date Type Department Care Team Description 11/08/2020 Telephone [facility] Heart Denisa Fisher, Clinic Care Coordination Clinic Lizzy RN - Follow-up (blood in [address] urine---U TI ) [facility] [address] [place] [address] Social History Tobacco Use Types [...] after his OV with Dr Mistry at [facility]. JNelsonRN Telephone Encounter - Jerri Rincon RN - 11/12/2020 2:05 PM CDT 11/12/[address] recd from Dr Castañeda -Stop Eliquis - Pt should see his PCP to determine source of bleeding. He may possibly need Urology consult or Watchman -Cancel DCCV for now Spoke w pt and explained recommendations. Pt has appt to establish care with Dr Cody Mistry at [facility] on 11/18. Plan was made to connect [...] voiced understanding and agreement with plan. AlbertooRN 1020 am Telephone Encounter - Denisa Fisher [...] does have follow up with PCP at [facility] in [place] on 11/18 he will be seeing Dr Cody Mistry. Patient agreed with plan and provided verbal understanding regarding above. MICHAEL Bynum documented in this encounter Plan of Treatment Not on filedocumented as of this encounter Visit Diagnoses Not on filedocumented in this encounter Care Teams Professor Of Management Relationship Specialty Start Date End Date No Ref-Primary, Physician PCP - General 07/15/20 Lino Radford DO Assigned PCP 08/26/20 [address] [place] [address] Wilian Castañeda MD Assigned Heart and Vascular 09/12/20 [address] [facility] Provider [address] [place] [address] documented as of this encounter
--- OUTSIDE RECORDS SUMMARY | 2022-01-16 09:02 | XMS_ITS | Encounter Summary ---
:1950 Author Organization [facility] Address [address] [place] [address] Care Team Providers Name Role Phone No Ref-Primary, Physician Primary Care Provider [phone] Savanah Gaming PA-C Unavailable [phone] Encounter Details Date Type Department Care Team Description 07/15/2020 Travel Social History Tobacco Use Types Packs/Day Years Used Date Smoking Tobacco: Never Assessed Sex Assigned at Date Recorded [...] on filedocumented in this encounter Care Teams Civil Engineer Helper Relationship Specialty Start Date End Date No Ref-Primary, Physician PCP - General 07/15/20 Savanah Gaming PA-C Assigned PCP 06/24/20 08/25/20 [address] [place] [address] documented as of this encounter
--- OUTSIDE RECORDS SUMMARY | 2022-01-16 09:02 | XMS_ITS | Encounter Summary ---
:1950 Author Organization [place] Address [address] [place] [address] Care Team Providers Name Role Phone No Ref-Primary, Physician Primary Care Provider [phone] Savanah Gaming PA-C Unavailable [phone] Encounter Details Date Type Department Care Team Description 07/19/2020 Travel Social History Tobacco Use Types Packs/Day Years Used Date Smoking Tobacco: Former Cigarettes 04/1971 - 04/02/1991 Smokeless Tobacco: Never Alcohol [...] filedocumented in this encounter Care Teams Supervisor [employer] Relationship Specialty Start Date End Date No Ref-Primary, Physician PCP - General 07/15/20 Savanah Gaming PA-C Assigned PCP 06/24/20 08/25/20 [address] [place] [address] documented as of this encounter
--- OUTSIDE RECORDS SUMMARY | 2022-01-16 09:02 | XMS_ITS | Encounter Summary ---
:1950 Author Organization [place] Address [address] [place] [address] Care Team Providers Name Role Phone No Ref-Primary, Physician Primary Care Provider [phone] Savanah Gaming PA-C Unavailable [phone] Encounter Details Date Type Department Care Team [...] on filedocumented in this encounter Care Teams Digester Operator Relationship Specialty Start Date End Date No Ref-Primary, Physician PCP - General 07/15/20 Savanah Gaming PA-C Assigned PCP 06/24/20 08/25/20 [address] [place] [address] documented as of this encounter
--- OUTSIDE RECORDS SUMMARY | 2022-01-16 09:02 | XMS_ITS | Encounter Summary ---
:1950 Author Organization [place] Address formerly [facility]0 [facility] [place] [address] Care Team Providers Name Role Phone No Ref-Primary, Physician Primary Care Provider [phone] Savanah Gaming PA-C Unavailable [phone] Reason for Visit Reason Comments UTI Encounter Details Date Type Department Care Team Description 08/09/2020 Office Visit [facility] Earnestine Glaser, Dysuria (Primary Dx); Urgent Care Irma rosenberg MD Nonspecific finding on examination of ur ine; [address] Fatigue, unspecified type; [place], [place] [address] Atrial fibrillation, unspecified type (H ) [address] [place], [place] [phone] [address] Social History Tobacco Use Types Packs/Day [...] - *UA reflex to Microscopic and Culture ([place] and [facility] (except [place] and [facility]) - Urine Microscopic - Urine Culture Aerobic [...] Total. Bili, TP) (08/09/2020 12:20 PM CDT) athologist Signature Sodium 139 133 - 144 08/09/2020 [facility] mmol/L 2:24 PM [facility] Potassium 4.2 3.4 - 5.3 08/09/2020 [facility] mmol/L 2:24 PM [facility] Chloride 108 94 - 109 08/09/2020 [facility] mmol/L 2:24 PM [facility] Carbon Dioxide 22 20 - 32 08/09/2020 [facility] mmol/L 2:26 PM [facility] Anion Gap 9 3 - 14 08/09/2020 [place] mmol/L 2:26 PM [facility] Glucose 125 (H) 70 - 99 08/09/2020 [facility] mg/dL 2:26 PM [facility] Urea Nitrogen 24 7 - 30 08/09/2020 [facility] mg/dL 2:26 PM [facility] Creatinine 0.87 0.66 - 08/09/2020 [facility] 1.25 mg/dL 2:26 PM [facility] GFR Estimate 87 >60 08/09/2020 [place] mL/min/{1. 2:26 PM [facility] 73_m2} HOSPITAL Comment: Non GFR Calc Starting 03/19/2018, serum creatinine ba sed estimated GFR (eGFR) will be calculated using the Chronic Kidney Dise [facility] Epidemiology Collaboration (CKD-EPI) equation. GFR Estimate If >90 >60 mL/min/{1.73_m2} 08/09/2020 2: 26 PM [facility] Comment: GFR Calc Starting 03/19/2018, serum creatinine ba sed estimated GFR (eGFR) will be calculated using the Chronic Kidney Dise [facility] Epidemiology Collaboration (CKD-EPI) equation. Calcium 9.5 8.5 - 10.1 08/09/2020 2:26 PM [facility] mg/dL [facility] Bilirubin Total 1.8 (H) 0.2 - 1.3 mg/dL 08/09/2020 2:30 PM [facility] Albumin 3.3 (L) 3.4 - 5.0 g/dL 08/09/2020 2:30 PM [facility] Protein Total 7.3 6.8 - 8.8 g/dL 08/09/2020 2:30 PM [facility] Alkaline Phosphatase 90 40 - 150 U/L 08/09/2020 2:30 PM [facility] ALT 22 0 - 70 U/L 08/09/2020 2:30 PM [facility] AST 11 0 - 45 U/L 08/09/2020 2:30 PM [facility] Specimen Anatomical Collection Method Collection Time Receive d Time (Source) Location / / Volume Laterality Blood 08/09/2020 12:20 08/09/2020 PM CDT 12:21 PM CDT Earnestine Glaser MD LAB - BLOOD ORDERABLES Performing Organization Address City/State/ZIP Code Phon e Number [facility] [address] [place], [place] [address] [facility] [address] [phone] CBC with platelets and differential (08/09/2020 12:20 PM CDT) [facility] Method Time Signature WBC 10.7 4.0 - 08/09/2020 [facility] 11.0 2:18 PM CDT CLINICS 10e9/L [place] RBC Count 5.53 4.4 - 5.9 08/09/2020 [facility] 10e12/L 2:18 PM [facility] [place] Hemoglobin 16.8 13.3 - 08/09/2020 [facility] 17.7 g/dL 2:18 PM [facility] [place] Hematocrit 50.8 40.0 - 08/09/2020 [facility] 53.0 % 2:18 PM [facility] [place] MCV 92 78 - 100 08/09/2020 [facility] fl 2:18 PM CDT [facility] [place] MCH 30.4 26.5 - 08/09/2020 [facility] 33.0 pg 2:18 PM CDT [facility] [place] MCHC 33.1 31.5 - 08/09/2020 [facility] 36.5 g/dL 2:18 PM CDT [facility] [place] RDW 14.4 10.0 - 08/09/2020 [facility] 15.0 % 2:18 PM CDT [facility] [place] Platelet Count 196 150 - 450 08/09/2020 [facility] 10e9/L 2:18 PM CDT [facility] [place] % Neutrophils 72.2 % 08/09/2020 [facility] 2:18 PM CDT [facility] [place] % Lymphocytes 16.6 % 08/09/2020 [facility] 2:18 PM CDT [facility] [place] % Monocytes 9.7 % 08/09/2020 [facility] 2:18 PM CDT [facility] [place] % Eosinophils 1.3 % 08/09/2020 [place] 2:18 PM CDT [facility] % Basophils 0.2 % 08/09/2020 [place] 2:18 PM CDT [facility] Absolute 7.7 1.6 - 8.3 08/09/2020 [place] Neutrophil 10e9/L 2:18 PM CDT [facility] Absolute 1.8 0.8 - 5.3 08/09/2020 [place] Lymphocytes 10e9/L 2:18 PM CDT [facility] Absolute 1.0 0.0 - 1.3 08/09/2020 [place] Monocytes 10e9/L 2:18 PM CDT [facility] Absolute 0.1 0.0 - 0.7 08/09/2020 [place] Eosinophils 10e9/L 2:18 PM CDT [facility] Absolute 0.0 0.0 - 0.2 08/09/2020 [place] Basophils 10e9/L 2:18 PM CDT [facility] Diff Method Automated 08/09/2020 [place] Method 2:18 PM CDT [facility] Specimen Anatomical Collection Method Collection Time Receive d Time (Source) Location / / Volume Laterality Blood 08/09/2020 12:20 08/09/2020 PM CDT 12:21 PM CDT Earnestine Glaser MD LAB - BLOOD ORDERABLES Performing Organization Address City/State/ZIP Code Phon e Number [facility] [address] [place] [address] EKG 12-lead complete w/read - Clinics (08/09/2020 12:01 PM CDT) Narrative This result has an attachment that is no t available. Earnestine Glaser MD ECG ORDERABLES Urine Culture Aerobic Bacterial (08/09/2020 10:54 AM CDT) Component Value Ref Test Analysis Performed At [facility] Range Method Time Signature Specimen Midstream Urine INFECTIOUS Description DISEASES DIAGNOSTIC LABORAT[facility], [facility] Culture Micro 50,000 to 100,000 colonies/mL 2020 INFECTIOUS mixed urogenital cristian 10:03 PM DISEASE S Susceptibility testing not routinely done CDT [facility], [facility] Specimen (Source) Anatomical Collection Method Collection Time Re ceived Time Location / / Volume Laterality Examination of 08/09/2020 10:54 midstream urine AM CDT 11:28 AM CDT specimen (procedure) Earnestine Glaser MD LAB - MICRO GENERAL ORDERABL ES Performing Organization Address City/State/ZIP Code Phon e Number [facility] [address] [place] [address] LABORATORY, [facility] (ABNORMAL) Urine Microscopic (08/09/2020 10:54 AM CDT) Patholo gist Method Time Signature WBC Urine >100 (A) OTO5^0 - 08/09/2020 [place] 5 /HPF 11:15 AM CDT [facility] RBC Urine 2-5 (A) OTO2^O - 08/09/2020 [place] 2 /HPF 11:15 AM CDT [facility] Squamous Few FEW^Few 08/09/2020 [place] Epithelial /LPF 11:15 AM CDT CLINICS /LPF Urine [place] Bacteria Urine Moderate (A) NEG^Negat 08/09/2020 [place] husam /HPF 11:15 AM CDT [facility] Specimen Anatomical Collection Method Collection Time Receive d Time (Source) Location / / Volume Laterality 08/09/2020 10:54 08/09/2020 AM CDT 10:55 AM CDT Earnestine Glaser MD LAB - URINE ORDERABLES Performing Organization Address City/[facility] Code Phon e Number [facility] [address] [place] [address] (ABNORMAL) *UA reflex to Microscopic and Culture ([place] and [facility] (except [place] and[facility]) (08/09/2020 10:54 AM CDT) [facility] [employer] Method Time Signature Color Urine Yellow 08/09/2020 [place] 11:15 AM CDT [facility] Appearance Clear 08/09/2020 [place] Urine 11:15 AM CDT [facility] Glucose Urine Negative NEG^Negat 08/09/2020 [place] husam mg/dL 11:15 AM CDT [facility] Bilirubin Moderate (A) NEG^Negat 08/09/2020 [place] Urine husam 11:15 AM CDT [facility] Comment: This is an unconfirmed screenin g test result. A positive result may be false. Ketones Urine >=80 (A) NEG^Negative mg/dL 08/09/2020 11:15 [place] AM CDT [facility] [place] Specific [place] >1.030 1.003 - 1.035 08/09/2020 11:15 [facility] Urine AM CDT [facility] [place] Blood Urine Large (A) NEG^Negative 08/09/2020 11:15 [place] AM CDT [facility] [place] pH Urine 5.5 5.0 - 7.0 pH 08/09/2020 11:15 [place] AM CDT [facility] [place] Protein Albumin >=300 (A) NEG^Negative mg/dL 08/09/2020 11:1 5 [place] Urine AM CDT [facility] [place] Urobilinogen Urine 1.0 0.2 - 1.0 EU/dL 08/09/2020 11:1 5 [place] AM CDT [facility] [place] Nitrite Urine Negative NEG^Negative 08/09/2020 11:15 [facility] AM CDT [facility] [place] Leukocyte Esterase Large (A) NEG^Negative 08/09/2020 11:15 [facility] Urine AM CDT [facility] [place] Source Midstream Urine 08/09/2020 10:55 [facility] AM CDT [facility] [place] Specimen (Source) Anatomical Collection Method Collection Time Re ceived Time Location / / Volume Laterality Examination of 08/09/2020 10:54 midstream urine AM CDT 10:55 AM CDT specimen (procedure) Earnestine Glaser MD LAB - URINE ORDERABLES Performing Organization Address City/State/ZIP Code Phon e Number [facility] [address] [facility] [address] documented in this encounter Visit Diagnoses Diagnosis Dysuria - Primary Nonspecific finding on examination of ur ine Other nonspecific finding on examination of urine Fatigue, unspecified type Atrial fibrillation, unspecified type (H ) documented in this encounter Care Teams Fire Protection Inspector Relationship Specialty Start Date End Date No Ref-Primary, Physician PCP - General 07/15/20 Savanah Gaming PA-C Assigned PCP 06/24/20 08/25/20 [address] [place] [address] documented as of this encounter
--- OUTSIDE RECORDS SUMMARY | 2022-01-16 09:02 | XMS_ITS | Encounter Summary ---
:1950 Author Organization [place] Address [facility] [place] [address] Care Team Providers Name Role Phone No Ref-Primary, Physician Primary Care Provider [phone] Lino Radford DO Unavailable Wilian Castañeda MD Unavailable Reason for Referral (Routine) - Closed Specialty Diagnoses / Procedures Referred By Contact Refer red To Contact Diagnoses Chronic atrial fibrillation (H) Wilian Castañeda MD Procedures Cardioversion [address] [place] [address] Referral ID Status Reason Start Date Expiration Date Visits Requ ested Visits Authorized [id number] Closed 10/27/2020 10/27/2021 1 1 Reason for Visit Reason Comments FU Cardiac testing echo, ZPatch (Routine) - Closed Specialty Diagnoses / Procedures Referred By Contact Refer red To Contact Diagnoses Chronic atrial fibrillation (H) Wilian Castañeda MD [address] [place] [address] Referral ID Status Reason Start Date Expiration Date Visits Requ ested Visits Authorized [id number] Closed 09/01/2020 09/01/2021 1 1 Encounter Details Date Type Department Care Team Description 10/27/2020 Office Visit [facility] Wilian Castañeda Chronic atrial [facility] Lizzy Mcintosh MD fibrillation (H) [address] [place] [address] [place] [address] [phone] Social History Tobacco Use Types Packs/Day Years [...] documented in this encounter Patient Instructions Patient InstructionsAmaWilian swann MD - 10/27/2020 12:45 PM CDT - [...] for evaluation. ?? Patient recently moved from [place] to [place]. He was told in the past that he had A. fib, however he denies actually having any physical back in [place]. Here [place], he establish care with PCP and was [...] I favor at least an attempt of congregation of normal rhythm. As he is intolerant [...] Other Topics Concern ??? Parent/sibling w/ CABG, PR or angioplasty before 65F 55M? Not Asked [...] Gatherings with Friends and Family: ??? Attends Shinto Services: ??? Active Member of Clubs or [...] (H) CC Wilian Castañeda MD [address] [place] [address] documented in this encounter Plan of Treatment Scheduled Orders Name Type Priority Associated Diagnoses Order S chedule Cardioversion Electrophysiology Routine Chronic atrial Expecte d: 11/27/2020 fibrillation (H) (Approximat e), Expires: 2021 documented as of this encounter Visit Diagnoses Diagnosis Chronic atrial fibrillation (H) Atrial fibrillation documented in this encounter Care Teams Sorting Cows Worker Relationship Specialty Start Date End Date No Ref-Primary, Physician PCP - General 07/15/20 Lino Radford DO Assigned PCP 08/26/20 [address] [place] [address] Wilian Castañeda MD Assigned Heart and Vascular 09/12/20 [address] Provider W2Muriel [place] [address] documented as of this encounter
--- OUTSIDE RECORDS SUMMARY | 2022-01-16 09:02 | XMS_ITS | Encounter Summary ---
:1950 Author Organization [place] Address [facility]0 [facility] [place] [address] Care Team Providers Name Role Phone No Ref-Primary, Physician Primary Care Provider [phone] Savanah Gaming PA-C Unavailable [phone] Reason for Referral (Routine) - Closed Specialty Diagnoses / Procedures Referred By Contact Refer red To Contact Gastroenterology Diagnoses History of colonic polyps Savanah Gaming PA-C [address] [place] [address] Referral ID Status Reason Start Date Expiration Date Visits Requ ested Visits Authorized [id number] Closed 07/19/2020 07/19/2021 1 1 Scheduling Instructions If EUS or ERCP is selected, it requires clinical review prior to scheduling. Reason for Visit Reason Comments Hospital F/U Encounter Details Date Type Department Care Team Description 07/19/2020 Office Visit [facility] Savanah Gaming e cystitis with hematuria (Primary Dx); Clinic Eladio Mendez PA-C Hyperkalemia; [address] [facility] [address] Morbid obesity (H); [place], [place] Rectal bleedi ng; [phone] Diverticulosis of large intestine withou t hemorrhage; [phone] Bladder diverti culitis; (Work) Nausea; History o [...] - *UA reflex to Microscopic and Culture ([place] and [place] [facility] (except [place] and [place]) Hyperkalemia Recheck labs today. - [...] Recheck if not improving. Savanah Gaming PA-C [facility] Dinah Mason is a 70 year old who presents for the following health issues [facility] Hospital Follow-up Visit: Hospital/Jail/IP Rehab Facility: [facility] Date of Admission: 07/15/20 Date of Discharge: 07/15/20 Reason(s) for Admission: Rectal bleeding, UTI, started on keflex. Was your hospitalization related to COVID-19? No Problems taking medications regularly: None Medication changes since discharge: None Problems adhering to non-medication therapy: None Summary of hospitalization: [facility] discharge summary reviewed Diagnostic Tests/Treatments reviewed. [...] severe rectal bleeding, just moved here from [place], staying with his step son. Bleeding from rectum has not been better since been on the antibiotics but UTI has been better. History of UTIs. Potassium was 5.7. Does not take any medications daily. Colonoscopy [address] Kenny in [place], repeat due in 3 years. No gerd [...] a great week! Sincerely, Raquel Gaming PA-C [facility] [address] [place] [address] Clinic documented in this encounter Plan of [...] - 144 07/19/2020 [facility] mmol/L 8:44 PM [facility] Potassium 4.4 3.4 - 5.3 07/19/2020 [facility] mmol/L 8:44 PM [facility] Chloride 106 94 - 109 07/19/2020 [facility] mmol/L 8:44 PM [facility] Carbon Dioxide 28 20 - 32 07/19/2020 [facility] mmol/L 8:55 PM [facility] Anion Gap 5 3 - 14 07/19/2020 [facility] mmol/L 8:55 PM [facility] Glucose 120 (H) 70 - 99 07/19/2020 [facility] mg/dL 8:55 PM [facility] Urea Nitrogen 31 (H) 7 - 30 07/19/2020 [facility] mg/dL 8:55 PM [facility] Creatinine 1.19 0.66 - 07/19/2020 [facility] 1.25 mg/dL 8:55 PM [facility] GFR Estimate 61 >60 07/19/2020 [facility] mL/min/{1. 8:55 PM [facility] 73_m2} HOSPITAL Comment: Non GFR Calc Starting 03/19/2018, serum creatinine ba sed estimated GFR (eGFR) will be calculated using the Chronic Kidney Dise [facility] Epidemiology Collaboration (CKD-EPI) equation. GFR Estimate If 71 >60 mL/min/{1.73_m2} 07/19/2020 8: 55 PM [facility] Comment: GFR Calc Starting 03/19/2018, serum creatinine ba sed estimated GFR (eGFR) will be calculated using the Chronic Kidney Dise [place] Epidemiology Collaboration (CKD-EPI) equation. Calcium 9.5 8.5 - 10.1 mg/dL 07/19/2020 8:55 PM CDT [facility] Specimen Anatomical Collection Method Collection Time Receive d Time (Source) Location / / Volume Laterality Blood 07/19/2020 2:44 PM 1 2:45 CDT PM CDT Savanah Gaming PA-C LAB - BLOOD ORDERABLE S Performing Organization Address City/[facility]/ZIP Code Phon e Number [facility] [address] [place] [address] [facility] [address] [place], [place] [address], [facility] [phone] [place] [address] [place] [address], [facility] [phone] HOSPITAL (ABNORMAL) Urine Microscopic (07/19/2020 2:43 PM CDT) [facility] gist Method Time Signature WBC Urine 5-10 (A) OTO5^0 - 5 07/19/2020 [facility] /HPF 3:05 PM CDT [facility] [place] RBC Urine 25-50 (A) OTO2^O - 2 07/19/2020 [facility] /HPF 3:05 PM CDT [facility] [place] Squamous Few FEW^Few 07/19/2020 [facility] Epithelial /LPF /LPF 3:05 PM CDT [facility] Bacteria Urine Few (A) NEG^Negati 07/19/2020 [facility] ve /HPF 3:05 PM CDT [facility] Calcium Oxalate Few (A) NEG^Negati 07/19/2020 [facility] ve /HPF 3:05 PM CDT [facility] Specimen Anatomical Collection Method Collection Time Receive d Time (Source) Location / / Volume Laterality 07/19/2020 2:43 PM 1 2:44 CDT PM CDT Savanah Gaming PA-C LAB - URINE ORDERABLE S Performing Organization Address City/[facility]/ZIP Code Phon e Number [facility] [address] [place] [address] (ABNORMAL) *UA reflex to Microscopic and Culture ([facility] (except [place]) (07/19/2020 2:43 PM CDT) [facility] Method Time Signature Color Urine Yellow 07/19/2020 [facility] 2:57 PM CDT [facility] [place] Appearance Slightly 07/19/2020 [facility] Urine Cloudy 2:57 PM CDT [facility] Glucose Urine Negative NEG^Negat 07/19/2020 [facility] husam mg/dL 2:57 PM CDT [facility] Bilirubin Moderate (A) NEG^Negat 07/19/2020 [facility] Urine husam 2:57 PM CDT [facility] Comment: This is an unconfirmed screenin g test result. A positive result may be false. Ketones Urine 40 (A) NEG^Negative mg/dL 07/19/2020 2:57 [facility] PM CDT [facility] Specific [place] 1.025 1.003 - 1.035 07/19/2020 2:57 [place] Urine PM CDT [facility] Blood Urine Large (A) NEG^Negative 07/19/2020 2:57 [facility] CDT [facility] pH Urine 5.5 5.0 - 7.0 pH 07/19/2020 2:57 [facility] CDT [facility] Protein Albumin 100 (A) NEG^Negative mg/dL 07/19/2020 2:57 [facility] Urine PM CDT [facility] Urobilinogen Urine 1.0 0.2 - 1.0 EU/dL 07/19/2020 2:57 [facility] CDT [facility] [place] Nitrite Urine Negative NEG^Negative 07/19/2020 2:[facility] Leukocyte Esterase Small (A) NEG^Negative 07/19/2020 2:57 [facility] Urine PM CDT [facility] [place] Source Midstream Urine 07/19/2020 2:45 [facility] CDT [facility] [place] Specimen (Source) Anatomical Collection Method Collection Time Re ceived Time Location / / Volume Laterality Examination of 07/19/2020 2:43 07/19/2020 2:44 midstream urine PM CDT PM CDT specimen (procedure) Savanah Gaming PA-C LAB - URINE ORDERABLE S Performing Organization Address City/State/ZIP Code Phon e Number [facility] [address] [place] [address] documented in this encounter Visit Diagnoses Diagnosis Acute cystitis with hematuria - Primary Acute cystitis Hyperkalemia Hyperpotassemia Morbid obesity (H) Morbid obesity Rectal bleeding Hemorrhage of rectum and anus Diverticulosis of large intestine withou t hemorrhage Bladder diverticulitis Diverticulum of bladder Nausea Nausea alone History of colonic polyps Personal history of colonic polyps documented in this encounter Care Teams Crime Specialist Relationship Specialty Start Date End Date No Ref-Primary, Physician PCP - General 07/15/20 Savanah Gaming PA-C Assigned PCP 06/24/20 08/25/20 [id number] [place] [address] documented as of this encounter
--- OUTSIDE RECORDS SUMMARY | 2022-01-16 09:02 | XMS_ITS | Encounter Summary ---
:1950 Author Organization [place] Address [facility] [place] [address] Care Team Providers Name Role Phone No Ref-Primary, Physician Primary Care Provider [phone] Lino Radford DO Unavailable Wilian Castañeda MD Unavailable Reason for Referral CV Testing (Routine) - Closed Specialty Diagnoses / Procedures Referred By Contact Refer red To Contact Cardiology Diagnoses Chronic atrial fibrillation (H) Wilian Castañeda Sh Cv Cardiac Services Procedures Leadless senior telecommunications engineer 3 to 7 Days ZZHC EXT ECG > 48HR TO 21 DAY RCRD W/CONECT INTL RCRD ZZC EXT ECG > 48HR TO 21 DAY REVIEW AND INTERPRETATN UT EXT ECG > 48HR TO 21 DAY RCRD W/CONECT INTL RCRD [address] [place] EXT ECG > 48HR TO 21 DAY REVIEW AND INTERPRETATN HC EXT ECG > 48HR TO 21 DAY RCRD W/CONECT INTL RCRD [address] [place] [address] [place] [address] [place] [phone] Referral ID Status Reason Start Date Expiration Date Visits Requ ested Visits Authorized [id number] Closed 09/01/2020 09/01/2021 1 1 Reason for Visit Auth/Cert Specialty Diagnoses / Procedures Referred By Contact Refer red To Contact Cardiology Cv Cardiac Se rvices [address] [place] [phone] Phone: Referral ID Status Reason Start Date Expiration Date Visits Requ ested Visits Authorized [id number] 1 1 Encounter Details Date Type Department Care Team Description 09/29/2020 Hospital Encounter [facility] MD Arnaldo fibrillation (H) Heart Care [address] [facility] [address] [facility] [address] [facility] [place] [address] [address] [place] (Work) [phone] Social History [...] Priority Date/Time Associated Diagnosis Comme nts LEADLESS DIRECTOR PATIENT Routine 09/29/2020 1:51 Chronic atrial Re sults for this APPLICATION AND PM CDT fibrillation (H) procedur e are in INTERPRETATION 3 TO 7 the re DAY section. documented in this encounter Results LEADLESS DIRECTOR PATIENT APPLICATION AND INTERPRETATION 3 TO 7 DAY [...] fibrillation documented in this encounter Care Teams Wax Engraver Relationship Specialty Start Date End Date No Ref-Primary, Physician PCP - General 07/15/20 Lino Radford DO Assigned PCP 08/26/20 [address] [place] [address] Wilian Castañeda MD Assigned Heart and Vascular 09/12/20 [address] [facility] Provider [address] [place] [address] documented as of this encounter
--- OUTSIDE RECORDS SUMMARY | 2022-01-16 09:02 | XMS_ITS | Encounter Summary ---
:1950 Author Organization [place] Address [address] [place] [address] Care Team Providers Name Role Phone No Ref-Primary, Physician Primary Care Provider [phone] Lino Radford DO Unavailable Wilian Castañeda MD Unavailable Reason for Visit Reason Onset Date Comments Orders 10/27/2020 Encounter Details Date Type Department Care Team Description 10/27/2020 Telephone [facility] Rufus Fisher RN Orders [place] [address] [facility] [address] [place] [address] Social History Tobacco Use Types [...] fibrillation documented in this encounter Care Teams Administrative Executive Relationship Specialty Start Date End Date No Ref-Primary, Physician PCP - General 07/15/20 Lino Radford DO Assigned PCP 08/26/20 [address] [place] [address] Wilian Castañeda MD Assigned Heart and Vascular 09/12/20 [address] [place] Provider [address] [place] [address] documented as of this encounter
--- OUTSIDE RECORDS SUMMARY | 2022-01-16 09:02 | XMS_ITS | Encounter Summary ---
:1950 Author Organization [place] Address [address] [place] [address] Care Team Providers Name Role Phone No Ref-Primary, Physician Primary Care Provider [phone] Savanah Gaming PA-C Unavailable [phone] Encounter Details Date Type Department Care Team Description 08/23/2020 Telephone [facility] No Ref-Primary, [place] Physician [address] [facility] [place] [address] Social History Tobacco Use [...] CDT Patient calls, Had EKG done at [facility] 08/09/2020, per office notes Discussed with pt [...] on filedocumented in this encounter Care Teams Cellophane Press Operator Relationship Specialty Start Date End Date No Ref-Primary, Physician PCP - General 07/15/20 Savanah Gaming PA-C Assigned PCP 06/24/20 08/25/20 [address] [place] [address] documented as of this encounter
--- OUTSIDE RECORDS SUMMARY | 2022-01-16 09:02 | XMS_ITS | Encounter Summary ---
:1950 Author Organization [place] Address [facility] [place] [address] Care Team Providers Name Role Phone No Ref-Primary, Physician Primary Care Provider [phone] Lino Radford DO Unavailable Wilian Castañeda [...] on filedocumented in this encounter Care Teams Distillery Miller Helper Relationship Specialty Start Date End Date No Ref-Primary, Physician PCP - General 07/15/20 Lino Radford DO Assigned PCP 08/26/20 [address] [place] [address] Wilian Castañeda MD Assigned Heart and Vascular 09/12/20 [address] [facility] Provider [address] [place] [id number] documented as of this encounter
--- OUTSIDE RECORDS SUMMARY | 2022-01-16 09:02 | XMS_ITS | Encounter Summary ---
:1950 Author Organization [place] Address [address] [place] [address] Care Team Providers Name Role Phone No Ref-Primary, Physician Primary Care Provider [phone] Savanah Gaming PA-C Unavailable [phone] Encounter Details Date Type Department Care Team [...] on filedocumented in this encounter Care Teams Corn Detasseler Machine Operator Relationship Specialty Start Date End Date No Ref-Primary, Physician PCP - General 07/15/20 Savanah Gaming PA-C Assigned PCP 06/24/20 08/25/20 [address] [place] [address] documented as of this encounter
--- OUTSIDE RECORDS SUMMARY | 2022-01-16 09:02 | XMS_ITS | Encounter Summary ---
:1950 Author Organization [place] Address [address] [place] [address] Care Team Providers Name Role Phone No Ref-Primary, Physician Primary Care Provider [phone] Lino Radford DO Unavailable Encounter Details [...] on filedocumented in this encounter Care Teams Dish Network Installer Relationship Specialty Start Date End Date No Ref-Primary, Physician PCP - General 07/15/20 Lino Radford DO Assigned PCP 08/26/20 [address] [place] [address] documented as of this encounter
--- OUTSIDE RECORDS SUMMARY | 2022-01-16 09:02 | XMS_ITS | Encounter Summary ---
:1950 Author Organization [place] Address [facility] [place] [address] Care Team Providers Name Role Phone No Ref-Primary, Physician Primary Care Provider [phone] Savanah Gaming PA-C Unavailable [phone] Reason for Visit Auth/Cert Specialty Diagnoses / Procedures Referred By Contact Refer red To Contact Gastroenterology Diagnoses Hx of colonic polyps Hx of colonic polyps [Z86.010] Endoscopy Procedures HC COLONOSCOPY W/WO BRUSH/WASH COLONOSCOPY [address] [place] [address] Phone: Fax: Referral ID Status Reason Start Date Expiration Date Visits Requ ested Visits Authorized [id number] 1 1 Encounter Details Date Type Department Care Team Description 08/18/2020 Surgery [facility] Hallie Rivera, COLO NOSCOPY with Endoscopy Evy HOOVER polypectomies USING hot [address] [place], [place] GASTROINTESTINAL [address] [facility] [phone] [place], [place] [id number] Surgery Details Date/Time Status Location OR Service [...] through Care Everywhere. Diverticulosis and Diverticulitis, Understanding (Kosovan)Diet, High-Fiber (Kosovan)Colon and Rectal Polyps, Understanding (Kosovan)documented in this encounter Medications at Time of [...] Component Value Ref Test Analysis Performed At [facility] Range Method Time Signature Copath Report Patient Name: MARLON BENTON MR#: [id number] Specimen #: [id number] Collected: 08/18/2020 Received: 08/18/2020 Reported: 08/19/2020 09:46 [...] this testing was completed at the [facility], with the professional compo nent performed at the [facility], [address] [place] [phone] ([phone]) CPT Codes: A: 72636-VX3 B: 78945-UC7 COLLECTION SITE: Client: [facility] Location: [facility] (R) Specimen (Source) Anatomical Collection Method Collection Time Re ceived Time Location / / Volume Laterality Polyp LARGE INTESTINE 08/18/2020 1:23 PM PART / Unknown CDT Polyp LARGE INTESTINE 08/18/2020 1:32 PM (morphologic PART / Unknown CDT abnormality) Hallie OROZCO - PATRIC Performing Organization Address City/State/ZIP Code Phon e Number COPATH COLONOSCOPY (08/18/2020 1:07 PM CDT) [facility] Method Time Signature COLONOSCOPY [facility] RAD IOLOGY RESULTS Patient Name: Marlon Benton ?Procedure Date: 08/18 1:07 PM ? Accou nt Number: [id number] Date of : 1950 ?Admit Type: Out [...] and ?oxygen saturations were monitored continuously. The ?Olympus Adult Colonoscope, Model # CF-WW655P, ?Endora # 222, SN # [id number] was introduced through ?the anus and advanced [...] with a hot ?snare. Resected and r [place]. ?- Diverticulosis in the sigmoid colon and [...] Procedure Code(s): ? --- Professional --- ? 22541, Colonoscopy, flexible; with removal of tumor (s), polyp(s), or ? other lesion(s) by snare technique Diagnosis Code(s): ? --- Professional --- ? K63.5, Polyp of colon CPT copyright 2019 [employer]. All rights reserved. The codes documented in this report are prelimin tarah and upon dealer compliance representative review may be revised to meet current compliance requirements. Electronically signed by Hallie Rivera MD Hallie Rivera MD 08/18/2020 1:41:27 PM I was physically present for the entire viewing portion of t he exam. Hallie Rivera MD Number of Addenda: 0 Note Initiated On: 08/18/2020 1:07 PM MRN: ?[id number] Procedure Date: ? 08/18/2020 1:07:30 PM Scope [...] For ordered IV doses 0.1-2mg give I BILL OF LADING CLERK. Give each 0.4mg over 15 seconds in [...]
Post-procedure documented in this encounter Care Teams Senior Web Designer Relationship Specialty Start Date End Date No Ref-Primary, Physician PCP - General 07/15/20 Savanah Gaming PA-C Assigned PCP 06/24/20 08/25/20 [address] [place] [address] documented as of this encounter
--- OUTSIDE RECORDS SUMMARY | 2022-01-16 09:02 | XMS_ITS | Encounter Summary ---
:1950 Author Organization [place] Address [address] [place] [address]. [place] [address] Care Team Providers Name Role Phone No Ref-Primary, Physician Primary Care Provider [phone] Savanah Gaming PA-C Unavailable [phone] Encounter Details Date Type Department Care Team Description 08/05/2020 Orders Only [facility] Francisco Peguero for screening Clinic Antonette Morrow MD for other viral [address] [place] [address] [address] [place], [place] GASTROINTESTINAL [address] [phone] [place] [address] Social History Tobacco Use Types [...] Component Value Ref Test Analysis Performed At [facility] Method Time Signature COVID-19 Nasopharyngeal 08/14/2020 [place] Virus PCR to 8:51 AM CDT [facility] Source COVID-19 Test received-See 08/14/2020 INFECTIOUS Virus PCR to reflex to IDDL 1:05 PM CDT DISE[place] [place] - test SARS CoV2 DIAGNOSTIC Result (COVID-19) Virus LABORATORY, RT-PCR [facility] Specimen (Source) Anatomical Collection Method Collection Time Re ceived Time Location / / Volume Laterality Specimen from 08/14/2020 8:50 08/14/2020 nasopharyngeal AM CDT 8:51 AM CDT structure (specimen) Francisco Peguero MD LAB - MICRO GENERAL ORDERABL ES Performing Organization Address City/State/ZIP Code Phon e Number INFECTIOUS DISEASES [address] [place] [address] DIAGNOSTIC LABORATORY, [facility] [address] [place] [id number] [facility] [phone] documented in this encounter Visit Diagnoses Diagnosis Encounter for screening for other viral diseases documented in this encounter Care Teams Technical Staff Engineer Relationship Specialty Start Date End Date No Ref-Primary, Physician PCP - General 07/15/20 Savanah Gaming PA-C Assigned PCP 06/24/20 08/25/20 [address] [place] [address] documented as of this encounter
--- OUTSIDE RECORDS SUMMARY | 2022-01-16 09:02 | XMS_ITS | Encounter Summary ---
:1950 Author Organization [place] Address [facility] [place] [address] Care Team Providers Name Role Phone No Ref-Primary, Physician Primary Care Provider [phone] Lino Radford DO Unavailable Wilian Castañeda [...] on filedocumented in this encounter Care Teams Summer Law Associate Relationship Specialty Start Date End Date No Ref-Primary, Physician PCP - General 07/15/20 Lino Radford DO Assigned PCP 08/26/20 [address] [place] [address] Wilian Castañeda MD Assigned Heart and Vascular 09/12/20 [address] [facility] Provider [address] [place] [address] documented as of this encounter
--- OUTSIDE RECORDS SUMMARY | 2022-01-16 09:02 | XMS_ITS | Encounter Summary ---
:1950 Author Organization [place] Address [facility] [address] Care Team Providers Name Role Phone No Ref-Primary, Physician Primary Care Provider [phone] Savanah Gaming PA-C Unavailable [phone] Reason for Visit Auth/Cert Specialty Diagnoses / Procedures Referred By Contact Refer red To Contact Gastroenterology Diagnoses Hx of colonic polyps Hx of colonic polyps [Z86.010] Rh Endoscopy Procedures HC COLONOSCOPY W/WO BRUSH/WASH COLONOSCOPY [address] [place] [address] Phone: Fax: Referral ID Status Reason Start Date Expiration Date Visits Requ ested Visits Authorized [id number] 1 1 Encounter Details Date Type Department Care Team Description 08/18/2020 Hospital Encounter [facility] Hallie Rivera , Endoscopy Evy HOOVER [address] [place], [place] [address] [facility] [phone] [place], [place] [address] (Wo rk) Social History Tobacco Use Types [...] through Care Everywhere. Diverticulosis and Diverticulitis, Understanding (Spanish)Diet, High-Fiber (Spanish)Colon and Rectal Polyps, Understanding (Spanish)documented in this encounter Medications at Time of [...] Component Value Ref Test Analysis Performed At [facility] Range Method Time Signature Copath Report Patient Name: MARLON BENTON MR#: [id number] Specimen #: [id number] Collected: 08/18/2020 Received: 08/18/2020 Reported: 08/19/2020 09:46 [...] received in formalin labeled with the p atsaurav's name, identifying information and designated transverse colon [...] of this testing was completed at the [facility], with the professional compo nent performed at the [facility], [address] [place] [address] ??[phone] ([phone]) CPT Codes: A: 01124-HQ0 B: 59506-VW0 COLLECTION SITE: Client: [facility] Location: [facility] (R) Specimen (Source) Anatomical Collection Method Collection Time Re ceived Time Location / / Volume Laterality Polyp LARGE INTESTINE 08/18/2020 1:23 PM PART / Unknown CDT Polyp LARGE INTESTINE 08/18/2020 1:32 PM (morphologic PART / Unknown CDT abnormality) Hallie [facility] Performing Organization Address City/State/ZIP Code Phon e Number COPATH COLONOSCOPY (08/18/2020 1:07 PM CDT) [facility] Method Time Signature COLONOSCOPY [facility] RAD IOLOGY RESULTS Patient Name: Marlon Benton ?Procedure Date: 08/18 1:07 PM ? Accou nt Number: [id number] Date of : 1950 ?Admit Type: Out patient Age: 70 ? Gender: Male Attending MD: Hallie gallardo MD ?? Total Sedation Time: 17_minutes continuous bedside 1:1 Instrument Name: 222 - Adult Colonoscope Procedure: ?Colonoscopy Indications: ?High mi sk colon cancer surveillance: Personal ?history of colonic po lyps Providers: ?Hallie Rivera MD (Doc [facility]) Referring MD: ? Medicines: ?Midazolam 2 mg [...] continuously. The ?Olympus Adult Colonoscope, Model # CF-GJ960I, ?Endora # 222, SN # [id number] was introduced through ?the anus and advanced [...] Procedure Code(s): ? --- Professional --- ? 32832, Colonoscopy, flexible; with removal of tumor (s), polyp(s), or ? other lesion(s) by snare technique Diagnosis Code(s): ? --- Professional --- ? K63.5, Polyp of colon CPT copyright 2019 [employer]. All rights reserved. The codes documented in this report are prelimin tarah and upon pool servicer review may be revised to meet current compliance requirements. Electronically signed by Hallie Rivera MD Hallie Rivera MD 08/18/2020 1:41:27 PM I was physically present for the entire viewing portion of t he exam. Hallie Rivera MD Number of Addenda: 0 Note Initiated On: 08/18/2020 1:07 PM MRN: ?[id number] Procedure Date: ? 08/18/2020 1:07:30 PM Scope [...] pain, with VAD insertion, S tarting on Sun08/18/20 at 1210, Apply at least 30 [...] For ordered IV doses 0.1-2mg give I OPTICIAN. Give each 0.4mg over 15 seconds in [...]
Post-procedure documented in this encounter Care Teams Teacher Cclc Relationship Specialty Start Date End Date No Ref-Primary, Physician PCP - General 07/15/20 Savanah Gaming PA-C Assigned PCP 06/24/20 08/25/20 [address] [place] [address] documented as of this encounter
--- OUTSIDE RECORDS SUMMARY | 2022-01-16 09:02 | XMS_ITS | Encounter Summary ---
:1950 Author Organization [place] Address [address] [place] [address] Care Team Providers Name Role Phone No Ref-Primary, Physician Primary Care Provider [phone] Lino Radford DO Unavailable Reason for Visit Reason Onset Date Comments Appointment 08/31/2020 Dr Castañeda 09/01 Encounter Details Date Type Department Care Team Description 08/31/2020 Telephone [facility] Heart Teresa Mesa A ppointment (Dr [facility] Lizzy RN 09/01) [address] [facility] [address] [place] [id number] Social History Tobacco Use Types Packs/Day Years [...] who stated there are no records from [place] as he did not seek medical care regarding his heart arrhythmia there. Alan 820 am Telephone Encounter - Teresa Mesa RN - 08/31/2020 1:06 PM CDT LM for pt to call back to see if he has any records in [place] that may be wanted for OV with Dr Castañeda. JNelsonRN documented in this encounter Plan of Treatment Not on filedocumented as of this encounter Visit Diagnoses Not on filedocumented in this encounter Care Teams Special Forces Weapons Sergeant Relationship Specialty Start Date End Date No Ref-Primary, Physician PCP - General 07/15/20 Lino Radford DO Assigned PCP 08/26/20 [address] [place] [address] documented as of this encounter
--- OUTSIDE RECORDS SUMMARY | 2022-01-16 09:02 | XMS_ITS | Encounter Summary ---
:1950 Author Organization [place] Address [address] [place] [address] Care Team Providers Name Role Phone No Ref-Primary, Physician Primary Care Provider [phone] Savanah Gaming PA-C Unavailable [phone] Encounter Details Date Type Department Care Team [...] on filedocumented in this encounter Care Teams Physics Faculty Member Relationship Specialty Start Date End Date No Ref-Primary, Physician PCP - General 07/15/20 Savanah Gaming PA-C Assigned PCP 06/24/20 08/25/20 [address] [place] [address] documented as of this encounter
--- OUTSIDE RECORDS SUMMARY | 2022-01-16 09:02 | XMS_ITS | Encounter Summary ---
:1950 Author Organization [place] Address [facility] [place] [address] Care Team Providers Name Role Phone No Ref-Primary, Physician Primary Care Provider [phone] Lino Radford DO Unavailable Reason for Referral (Routine) - Closed Specialty Diagnoses / Procedures Referred By Contact Refer red To Contact Diagnoses Chronic atrial fibrillation (H) Wilian Turner MD [address] [place] [address] Referral ID Status Reason Start Date Expiration Date Visits Requ ested Visits Authorized [id number] Closed 09/01/2020 09/01/2021 1 1 V Testing (Routine) - Closed Specialty Diagnoses / Procedures Referred By Contact Refer red To Contact Cardiology Diagnoses Chronic atrial fibrillation (H) Wilian Turner, Cv Cardiac Services Procedures Leadless pipe line repairer 3 to 7 Days ZZHC EXT ECG > 48HR TO 21 DAY RCRD W/CONECT INTL RCRD ZZC EXT ECG > 48HR TO 21 DAY REVIEW AND INTERPRETATN OK EXT ECG > 48HR TO 21 DAY RCRD W/CONECT INTL NANCY HOOVER [address] [place] EXT ECG > 48HR TO 21 DAY REVIEW AND INTERPRETATN HC EXT ECG > 48HR TO 21 DAY RCRD W/CONECT INTL RCRD [address] [place] [address] [place] [address] [place] [phone] Referral ID Status Reason Start Date Expiration Date Visits Requ ested Visits Authorized [id number] Closed 09/01/2020 09/01/2021 1 1 V Testing [...] ZZHC STATISTIC IV PUSH SINGLE INITIAL SUBSTANCE OK ECHO MYOCARD BX OK INJECTION, PERFLUTREN LIPID MICROSPHERES, PER ML OK TTE W/DOPPLER, COMPLETE [address] [place] IV PUSH SINGLE, INITIAL S UBSTANCE OK TTE W/DOPPLER, COMPLETE OK TTE W/DOPPLER, COMPLETE HC US GUIDE FOR PERICARDIOCENTESIS HC ECHO MYOCARD BX HC IV PUSH SINGLE, INITIAL SUBSTANCE HC STATISTIC IV PUSH SINGLE INITIAL SUBSTANCE [address] HC ECHO COMPLETE W DOPPLER W CONTRAST HC ECHO COMPLETE W DOPPLER W/O CONTRAST [place] [address] [place] [phone] Referral ID Status Reason Start Date Expiration Date Visits Requ ested Visits Authorized [id number] Closed 09/01/2020 09/01/2021 1 1 Reason for Visit Reason Comments New Patient A-fib CV Cardio consult (Routine) - Closed Specialty Diagnoses / Procedures Referred By Contact Refer red To Contact Cardiovascular Disease Diagnoses Chronic atrial fibrillation (H) Lino Radford DO Ru [facility] Care [address] [address] [place] [address] [address] [place] [address] Phone: Fax: Referral ID Status Reason Start Date Expiration Date Visits Requ ested Visits Authorized [id number] Closed 08/23/2020 08/23/2021 1 1 Encounter Details Date Type Department Care Team Description 09/01/2020 Office Visit [facility] [place] [address] [place], [place] [id number] Chronic atrial Heart Clinic Wilian Patel MD [address] [facility] [address] [place] [id number] fibrillation (H) [address] [facility] [address] [place] [address] Social History Tobacco [...] of atrial fibrillation. Patient recently moved from [place] to [place]. He was told in the past that he had A. fib, however he denies actually having any physical back in [place]. Here, he was evaluated by PCP and [...] on phone: None Gets together: None Attends yarsani service: None Active member of club or organization: None Attends meetings of clubs or organizations: None Relationship status: None ??? Intimate partner violence Fear of current or ex partner: None Emotionally abused: None Physically abused: None Forced sexual activity: None Other Topics Concern ??? Parent/sibling w/ CABG, NE or angioplasty before 65F 55M? Not Asked [...] Diagnosis Name Primary? 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 documented in this encounter Results LEADLESS MAKEUP EDITOR APPLICATION AND INTERPRETATION 3 TO 7 DAY [...] PM CDT Narrative 09/29/2020 2:20 PM CDT [id number]^YUE^WILIAN^TJ [facility] [address] [facility] [address] [place] [address] Name: MARLON BENTON : 1950 Study Date: 09/29/2020 12:50 PM Age: 70 yrs Gender: Male Patient Location: [facility] Reason For Study: Chronic atrial fibrill ation (H) Ordering Physician: WILIAN TURNER Referring Physician: WILIAN TURNER A Performed By: Silvia Rubio BSA: 2.3 m2 Height: 71 in Weight: 243 lb HR: 112 BP: 120/82 mmHg Procedure Complete Echo Adult. Optison ([facility] #[id number]) given intravenously. Interpretation Summary The left ventricle [...] Odessa Aguila MDon 0 09/29/2020 02:20 PM Procedure Note Odessa Aguila MD - 09/29/2020 [id number]^YUE^WILIAN^[facility] [address] [facility] [address] [place] [address] Name: MARLON BENTON : 1950 Study Date: 09/29/2020 12:50 PM Age: 70 yrs Gender: Male Patient Location: [facility] Reason For Study: Chronic atrial fibrill ation (H) Ordering Physician: WILIAN TURNER Referring Physician: WILIAN TURNER Performed By: Silvia Rubio BSA: 2.3 m2 Height: 71 in Weight: 243 lb HR: 112 BP: 120/82 mmHg Procedure Complete Echo Adult. Optison ([facility] #[id number]) given intravenously. Interpretation Summary The left ventricle [...] fibrillation documented in this encounter Care Teams Certified Ophthalmic Medical Technician Relationship Specialty Start Date End Date No Ref-Primary, Physician PCP - General 07/15/20 Lino Radford DO Assigned PCP 08/26/20 [address] [place] [address] documented as of this encounter
--- OUTSIDE RECORDS SUMMARY | 2022-01-16 09:02 | XMS_ITS | Encounter Summary ---
:1950 Author Organization [place] Address [facility] [place] [address] Care Team Providers Name Role Phone No Ref-Primary, Physician Primary Care Provider [phone] Lino Radford DO Unavailable Wilian Turner [...] ZZHC STATISTIC IV PUSH SINGLE INITIAL SUBSTANCE NH ECHO MYOCARD BX NH INJECTION, PERFLUTREN LIPID MICROSPHERES, PER ML NH TTE W/DOPPLER, COMPLETE [address] [place] IV PUSH SINGLE, INITIAL S UBSTANCE NH TTE W/DOPPLER, COMPLETE NH TTE W/DOPPLER, COMPLETE HC US GUIDE FOR PERICARDIOCENTESIS HC ECHO MYOCARD BX HC IV PUSH SINGLE, INITIAL SUBSTANCE HC STATISTIC IV PUSH SINGLE INITIAL SUBSTANCE [address] HC ECHO COMPLETE W DOPPLER W CONTRAST HC ECHO COMPLETE W DOPPLER W/O CONTRAST [place] [address] [place] [phone] Referral ID Status Reason Start Date Expiration Date Visits Requ ested Visits Authorized [id number] Closed 09/01/2020 09/01/2021 1 1 Reason for Visit Auth/Cert Specialty Diagnoses / Procedures Referred By Contact Refer red To Contact Cardiology Sh Cv Cardiac Se rvices [address] [facility] ue [facility] [address] [place] [address] Phone: Referral ID Status Reason Start Date Expiration Date Visits Requ ested Visits Authorized [id number] 1 1 Encounter Details Date Type Department Care Team Description 09/29/2020 Hospital Encounter [facility] Wilian Turner Ch ronic [facility] MD Tj fibrillation (H) Heart Care [address] [facility] [address] [place] [address] [address] [place], [place] (Work) [address] Social History Tobacco Use Types [...] PM CDT Narrative 09/29/2020 2:20 PM CDT [id number]^YUE^WILIAN^TJ [facility] [address] [facility] [address] [place] [address] Name: MARLON OWENS : 1950 Study Date: 09/29/2020 12:50 PM Age: 70 yrs Gender: Male Patient [facility]: [facility] Reason For Study: Chronic atrial fibrill ation (H) Ordering Physician: WILIAN TURNER Referring Physician: WILIAN TURNER Performed By: Silvia Rubio BSA: 2.3 m2 Height: 71 in Weight: 243 lb HR: 112 BP: 120/82 mmHg Procedure Complete Echo Adult. Breanna ([facility] #[id number]) given intravenously. Interpretation Summary The left ventricle [...] Procedure Note Odessa Aguila MD - 09/29/2020 [id number]^YUE^WILIAN^[facility] [address] [facility] [address] [place] [address] Name: MARLON OWENS : 1950 Study Date: 09/29/2020 12:50 PM Age: 70 yrs Gender: Male Patient Location: [facility] Reason For Study: Chronic atrial fibrill ation (H) Ordering Physician: WILIAN TURNER Referring Physician: WILIAN TURNER Performed By: Silvia Rubio BSA: 2.3 m2 Height: 71 in Weight: 243 lb HR: 112 BP: 120/82 mmHg Procedure Complete Echo Adult. Optison ([facility] #[id number]) given intravenously. Interpretation Summary The left ventricle [...] On Sun09/29/20 at 1400, For 1 dose, NHC- 5223-9705-88 sodium chloride (PF) 0.9% PF flush 10 mL Given 09/29/2020 1:44 PM CDT 10 mLs 10 mL, Intravenous, ONCE, On Sun09/29/20 at 1400, For 1 dose documented in this encounter Care Teams Pesticide Applicator Relationship Specialty Start Date End Date No Ref-Primary, Physician PCP - General 07/15/20 Lino Radford DO Assigned PCP 08/26/20 [address] [place] [address] Wilian Turner MD Assigned Heart and Vascular 09/12/20 [address] [facility] Provider [address] [place] [address] documented as of this encounter
--- OUTSIDE RECORDS SUMMARY | 2022-01-16 09:02 | XMS_ITS | Encounter Summary ---
:1950 Author Organization [facility] Address [address] [place] [address]. [place] [address] Care Team Providers Name Role Phone No Ref-Primary, Physician Primary Care Provider [phone] Savanah Gaming PA-C Unavailable [phone] Reason for Referral CV Cardio consult (Routine) - Closed Specialty Diagnoses / Procedures Referred By Contact Refer red To Contact Cardiovascular Disease Diagnoses Chronic atrial fibrillation (H) Lino Radford DO [facility] Care [address] [facility] [address] [place] [address] [address] [place] [address] Phone: Fax: Referral ID Status Reason Start Date Expiration Date Visits Requ ested Visits Authorized [id number] Closed 08/23/2020 08/23/2021 1 1 Reason for Visit Reason Comments Urgent Care f/u Atrial Fib Encounter Details Date Type Department Care Team Description 08/23/2020 Office Visit [facility] Lino Radford Chronic atrial fibrillation (H); Clinic [facility] Screening for hyperlipidemia; [address] [facility] [address] [facility] health care; [place], [place] Need for Td v accine [phone] Social History Tobacco Use Types Packs/Day Years [...] in this encounter Patient Instructions Patient InstructionsTLino alberts, - 08/23/2020 1:30 PM CDT Images from the original note were not included. Try to get up and down from lying position slowly so you do not get dizzy. See info on atrial fibrillation in hand out. I will review you studies via Vee[employer]. Someone should be calling you over the next 2 days regarding the referral. Thank you for choosing [facility] today for your health care needs. [facility] primary [facility], we???re constantly working to improve how we serve our patients and communities. We???re currently making changes to the way we deliver care. Most of the work is behind the scenes, but you???ll benefit from our efforts to make it easier and more convenient to stay connected to [facility] and your care team to maintain your optimal health. Benefits of a primary care provider If you don???t have a designated primary care provider yet, we encourage you to get to know our careteam online, and find a provider you???d like to see. Most of our providers have a short video on their online provider page. Visit [facility] to explore our providers and locations. Benefits [...] to your health records and care team [employer] is our online tool that makes it easy to see your health care information and communicate with your care team. Veebow allows you to: ??? View your health maintenance plan so you know when you???re due for a preventive screening ??? Send secure messages to your care team ??? View your health history and visit summaries ??? Schedule appointments ??? Complete questionnaires and eCheck-in before appointments ??? Get care from your provider with an e-visit ??? View and pay your bill Sign up at [email or web address]. Once you have an account, you also [...] your medication, an E-visit is completed through [employer]eebow and your provider will respond within one business day. In-person ??? Clinic appointments: Schedule an appointment at a clinic close to you anytime online at [facility] or call [facility]. Urgent Care: Visit one of our Urgent Care locations throughout the [facility]. View locations and estimated wait times at [email or web address]. Patient Education Understanding Atrial Fibrillation ?? An [...] reviewed this educational content on 07/01/2018 ?? [phone] [employer] ([employer]). All rights reserved. This information is not [...] should cut out caffeine. ?? Don't take qadh-xyp-eplifuk medicines that have caffeine in them. Also avoid medicines with pseudoephedrine. ?? Let your doctor know what medicines you take, including prescription and milw-vfa-mldwxel medicines, as well as any supplements. They [...] your heartbeat, or an unusually fast heartbeat [email or web address] last reviewed this educational content on 07/31/2018 ?? [phone] [employer] ([employer]). All rights reserved. This information is not [...] 11/23/2020) for Routine preventive. Lino Radford DO [facility] Dinah Pat is a 70 year old who presents for the following health issues HPI ED/UC Followup: Facility: [facility] Date of visit: 08/09/20 Reason for visit: lightheadedness Current Status: stable- wants to schedule heart test Review of Systems Patient is seen for primary reason of wanting a referral to cardiology to address his atrial fibrillation. He states he has had atrial fibrillation in the past prior to moving to [place] from [place]. He is unsure exactly what it was called, but may have been paroxysmal atrial fibrillation. He tried to go for a walk a couple days ago, and he got dizzy, so he decided he needed to get his Afib treated. On my calculation during exam, he scores a 1 on [id number] risk stratification. Considering this, I told him [...] documented in this encounter Nursing Notes Audrey Henderson CMA - 08/23/2020 1:30 PM CDT Prior to [...] Name Type Priority Associated Diagnoses Order S chedudayday Basic metabolic panel Lab Routine Preventative heal [...] Name Type Priority Associated Diagnoses [facility] Referral Routine Chronic atrial [...] (Td) documented in this encounter Care Teams Special Delivery Mail Carrier Relationship Specialty Start Date End Date No Ref-Primary, Physician PCP - General 07/15/20 Savanah Gaming PA-C Assigned PCP 06/24/20 08/25/20 [address] [place] [address] documented as of this encounter
--- OUTSIDE RECORDS SUMMARY | 2022-01-16 09:03 | XMS_ITS | Encounter Summary ---
:1950 Author Organization [facility] Address [address] [place] [address] Care Team Providers Name Role Phone No Ref-Primary, Physician Primary Care Provider [phone] Savanah Gaming-Michael Unavailable [phone] Reason for Visit Reason Comments Rectal Bleeding Encounter Details Date Type Department Care Team Description 07/15/2020 Emergency [facility] Jennifer Arita, Ur inary tract infection without hematuria, site unspecified; [facility] Emergency DO Hyperkalemia; Dept [facility] Rectal bleeding; [address] Diverticulosis of large intestine with h [place], [place] [address] [id number] [place] [address] (Wo rk) Social History Tobacco Use Types [...] Urinary Tract Infections (UTIs), Understanding (Citizen [place])Rectal Bleeding, Evaluating and Treating ([place]izen [place])documented in this encounter Medications at Time of [...] history of UTIs. He reports moving from [place] 2 days prior. Review of Systems Constitutional: [...] without arabella blood/melena. No external hemorrhoids/palpable mass. Paleontological Helper RN [place] MSK: No calf tenderness or swelling. Neuro: Alert. Follows simple commands. Skin: Skin is warm and dry. No rash noted. Psychiatric: Normal affect. Emergency Department Course ECG: ECG taken at 0555, ECG read at 0558 Sinus tachycardia Left anterior fascicular block Septal infarct, age undetermined ST & T wave abnormality, consider lateral ischemia Abnormal ECG Rate 116 bpm. WV interval * ms. QRS duration 124 ms. [...] reviewed the patient's nursing notes, vitals. Assessments: 033 I performed an exam of the patient [...] provided today as patient just moved to [place]. I will dispo home withantibiotics. We reviewed [...] daily for 7 days Scribe Disclosure: Dave Yoly Cortes, am serving as a scribe at 3:23 AM on 07/15/2020 to document services personally performed by Jennifer Arita DO based on my observations and the provider's statements to me. [facility] EMERGENCY DEPT Jennifer Arita DO 07/15/20 0620 documented in this encounter Miscellaneous Notes Result Encounter Note - Mejia Dowling RN - 07/15/2020 6:10 AM CDT [facility] Emergency Dept discharge antibiotic (if prescribed): Cephalexin (Keflex) 500 mg capsule, 1 capsule (500 mg) by mouth 2 times daily for 7 days. Date of Rx (if applicable): 07/15/20 No changes in treatment per [facility] ED Lab Result Urine culture protocol. [...] timesdaily for 7 days. Treatment recommendations per [facility] ED Lab Result Urine Culture protocol. [...] EKG 12 lead (07/15/2020 5:55 AM CDT) [facility] gist Method Time Signature Interpretation ECG [...] EXAM: CT ABDOMEN PELVIS W CONTRAST LOCATION: [facility] DATE/TIME: 07/15/2020 5:08 AM INDICATION: Abdominal [...] EXAM: CT ABDOMEN PELVIS W CONTRAST LOCATION: [facility] DATE/TIME: 07/15/2020 5:08 AM INDICATION: Abdominal [...] Ref Test Analysis Performed At [facility] Range Method Time Signature Specimen Midstream Urine INFECTIOUS Description [facility] Special Specimen received 07/15/2020 INFECTIOUS Requests in preservative 8:41 AM CDT [facility] Culture Micro >100,000 colonies/mL 07/16/2020 INFE CTIOUS mixed urogenital cristian 9:44 AM CDT DIS[facility] Susceptibility testing not routinely done [facility], [facility] Specimen (Source) Anatomical Collection Method Collection Time Re ceived Time Location / / Volume Laterality Examination of 07/15/2020 3:58 07/15/2020 5:01 midstream urine AM CDT AM CDT specimen (procedure) Jennifer Arita DO LAB - MICRO GENERAL ORDERABL ES Performing Organization Address City/State/ZIP Code Phon e Number INFECTIOUS [facility] [address] [facility] [address] LABORATORY, [facility] (ABNORMAL) Stool: occult blood (07/15/2020 3:58 AM CDT) [facility] Method [place] Signature Occult Blood Positive (A) NEG^Negat 07/15/2020 [place] husam 4:23 AM [facility] Specimen Anatomical Collection Method Collection Time Receive d Time (Source) Location / / Volume Laterality Stool 07/15/2020 3:58 AM 4:21 CDT AM CDT Jennifer Arita DO LAB - STOOLS ORDERABLES Performing Organization Address City/State/ZIP [facility] Phon e Number [facility] [address], [place] [address] [facility] [address] [address] [phone] (ABNORMAL) UA with Microscopic (07/15/2020 3:58 AM CDT) [facility] Method Time Signature Color Urine Yellow 07/15/2020 [place] 4:37 AM [facility] Appearance Urine Cloudy 07/15/2020 [facility] 4:37 AM [facility] Glucose Urine Negative NEG^Negat 07/15/2020 [facility] [place] mg/dL 4:37 AM [facility] Bilirubin Urine Negative NEG^Negat 07/15/2020 [facility] [place] 4:37 AM [facility] Ketones Urine 40 (A) NEG^Negat 07/15/2020 [facility] [place] mg/dL 4:37 AM [facility] Specific [place] 1.016 1.003 - 07/15/2020 [facility] Urine 1.035 4:37 AM [facility] Blood Urine Moderate (A) NEG^Negat 07/15/2020 [facility] [place] 4:37 AM [facility] pH Urine 6.0 5.0 - 7.0 07/15/2020 [facility] pH 4:37 AM [facility] Protein Albumin 200 (A) NEG^Negat 07/15/2020 [facility] Urine [place] mg/dL 4:37 AM [facility] Urobilinogen Normal 0.0 - 2.0 07/15/2020 [facility] mg/dL mg/dL 4:37 AM [facility] Nitrite Urine Negative NEG^Negat 07/15/2020 [facility] [place] 4:37 AM [facility] Leukocyte Large (A) NEG^Negat 07/15/2020 [facility] Esterase Urine husam 4:37 AM [facility] Source Midstream 07/15/2020 [facility] Urine 3:58 AM [facility] WBC Urine >182 (H) 0 - 5 07/15/2020 [facility] /HPF 4:37 AM [facility] RBC Urine 30 (H) 0 - 2 07/15/2020 [facility] /HPF 4:37 AM [facility] WBC Clumps Present (A) NEG^Negat 07/15/2020 [facility] [place] /HPF 4:37 AM [facility] Bacteria Urine Moderate (A) NEG^Negat 07/15/2020 [facility] hus[place] /HPF 4:37 AM [facility] Squamous 3 (H) 0 - 1 07/15/2020 [facility] Epithelial /HPF /HPF 4:37 AM [facility] Mucous Urine Present (A) NEG^Negat 07/15/2020 [place] /LPF 4:37 AM T [facility] Specimen (Source) Anatomical Collection Method Collection Time Re ceived Time Location / / Volume Laterality Examination of URINE SPECIMEN 07/15/2020 3:58 07/16/19 21 4:21 midstream urine OBTAINED BY CLEAN AM CDT AM CDT specimen CATCH PROCEDURE / (procedure) Unknown Jennifer Arita DO LAB - URINE ORDERABLES Performing Organization Address City/[facility] Phon e Number M [facility] [address], [place] [address] [facility] [address], [place] [address], [facility] [phone] INR (07/15/2020 2:20 AM CDT) athologist Signature INR 1.10 0.86 - 1.14 07/15/2020 [facility] 3:53 AM CDT HOSPITAL Specimen Anatomical Collection Method Collection Time Receive d Time (Source) Location / / Volume Laterality 07/15/2020 2:20 AM 2:27 CDT AM CDT Jennifer Arita DO LAB - BLOOD ORDERABLES Performing Organization Address City/[facility] Phon e Number [facility] [address], [place] [address] [facility] [address], [place] [address], [facility] [phone] (ABNORMAL) Comprehensive metabolic panel (07/15/2020 2:20 AM CDT) athologist Signature Sodium 140 133 - 144 07/15/2020 [place] mmol/L 4:22 AM CDT [facility] Potassium 5.7 (H) 3.4 - 5.3 07/15/2020 [place] mmol/L 4:22 AM T [facility] Chloride 111 (H) 94 - 109 07/15/2020 [place] mmol/L 4:22 AM T [facility] Carbon Dioxide 24 20 - 32 07/15/2020 [place] mmol/L 4:22 AM [facility] Anion Gap 5 3 - 14 07/15/2020 [place] mmol/L 4:22 AM [facility] Glucose 110 (H) 70 - 99 07/15/2020 [facility] mg/dL 4:22 AM [facility] Urea Nitrogen 27 7 - 30 07/15/2020 [place] mg/dL 4:22 AM [facility] Creatinine 0.72 0.66 - 07/15/2020 [place] 1.25 mg/dL 4:22 AM [facility] GFR Estimate >90 >60 07/15/2020 [place] mL/min/{1. 4:22 AM [facility] 73_m2} HOSPITAL Comment: Non GFR Calc Starting 03/19/2018, serum creatinine ba sed estimated GFR (eGFR) will be calculated using the Chronic Kidney Dise [facility] Epidemiology Collaboration (CKD-EPI) equation. GFR Estimate If >90 >60 mL/min/{1.73_m2} 07/15/2020 4: 22 AM [facility] Comment: GFR Calc Starting 03/19/2018, serum creatinine ba sed estimated GFR (eGFR) will be calculated using the Chronic Kidney Dise [facility] Epidemiology Collaboration (CKD-EPI) equation. Calcium 8.9 8.5 - 10.1 07/15/2020 4:22 AM [facility] mg/dL [facility] Bilirubin Total 1.4 (H) 0.2 - 1.3 mg/dL 07/15/2020 4:22 AM [facility] Albumin 3.0 (L) 3.4 - 5.0 g/dL 07/15/2020 4:22 AM [facility] Protein Total 7.1 6.8 - 8.8 g/dL 07/15/2020 4:22 AM [facility] Alkaline Phosphatase 80 40 - 150 U/L 07/15/2020 4:22 AM [facility] ALT 26 0 - 70 U/L 07/15/2020 4:22 AM [facility] AST 43 0 - 45 U/L 07/15/2020 4:22 AM [facility] Comment: Specimen is hemolyzed which can falsely elevate AST. Analysis of a non-hemolyzed specimen may result in a l ower value. Specimen Anatomical Collection Method Collection Time Receive d Time (Source) Location / / Volume Laterality 07/15/2020 2:20 AM 2:27 CDT AM CDT Jennifer Arita DO LAB - BLOOD ORDERABLES Performing Organization Address City/State/ZIP Code Phon e Number M [facility] [address] [place] [address] [phone] [facility] [address] [place] [address], [place] [phone] (ABNORMAL) CBC with platelets differential (07/15/2020 2:20 AM CDT) [facility] Method Time Signature WBC 11.7 (H) 4.0 - 07/15/2020 [facility] 11.0 2:30 AM [facility] 10e9/L [facility] RBC Count 5.02 4.4 - 5.9 07/15/2020 [facility] 10e12/L 2:30 AM [facility] Hemoglobin 15.8 13.3 - 07/15/2020 [facility] 17.7 g/dL 2:30 AM [facility] Hematocrit 48.2 40.0 - 07/15/2020 [facility] 53.0 % 2:30 AM [facility] MCV 96 78 - 100 07/15/2020 [facility] fl 2:30 AM [facility] MCH 31.5 26.5 - 07/15/2020 [facility] 33.0 pg 2:30 AM [facility] MCHC 32.8 31.5 - 07/15/2020 [facility] 36.5 g/dL 2:30 AM [facility] RDW 13.7 10.0 - 07/15/2020 [facility] 15.0 % 2:30 AM [facility] Platelet Count 241 150 - 450 07/15/2020 [facility] 10e9/L 2:30 AM [facility] Diff Method Automated 07/15/2020 [facility] Method 2:30 AM [facility] % Neutrophils 75.5 % 07/15/2020 [facility] 2:30 AM [facility] % Lymphocytes 13.7 % 07/15/2020 [facility] 2:30 AM [facility] % Monocytes 8.3 % 07/15/2020 [facility] 2:30 AM [facility] % Eosinophils 1.6 % 07/15/2020 [facility] 2:30 AM [facility] % Basophils 0.5 % 07/15/2020 [facility] 2:30 AM [facility] % Immature 0.4 % 07/15/2020 [facility] Granulocytes 2:30 AM [facility] Nucleated RBCs 0 0 /100 07/15/2020 [facility] 2:30 AM [facility] Absolute 8.8 (H) 1.6 - 8.3 07/15/2020 [place] Neutrophil 10e9/L 2:30 AM [facility] Absolute 1.6 0.8 - 5.3 07/15/2020 [place] Lymphocytes 10e9/L 2:30 AM [facility] Absolute 1.0 0.0 - 1.3 07/15/2020 [facility] Monocytes 10e9/L 2:30 AM [facility] Absolute 0.2 0.0 - 0.7 07/15/2020 [facility] Eosinophils 10e9/L 2:30 AM [facility] Absolute 0.1 0.0 - 0.2 07/15/2020 [place] Basophils 10e9/L 2:30 AM [facility] Abs Immature 0.1 0 - 0.4 07/15/2020 [place] Granulocytes 10e9/L 2:30 AM [facility] Absolute 0.0 07/15/2020 [place] Nucleated RBC 2:30 AM [facility] Specimen Anatomical Collection Method Collection Time Receive d Time (Source) Location / / Volume Laterality Blood 07/15/2020 2:20 AM 2:27 CDT AM CDT Jennifer Arita DO LAB - BLOOD ORDERABLES Performing Organization Address City/State/ZIP Code Phon e Number [facility] [address], [place] [address] [facility] [address] [phone] documented in this encounter Visit Diagnoses Diagnosis [...] 07/14/2020 07/15/2020 0.9% sodium chloride BOLUS (COMPLETED) 0512 (New Bag - Provider: Migdalia Evans)0537 (Stopped [...] dose documented in this encounter Care Teams Compactor Driver Relationship Specialty Start Date End Date No Ref-Primary, Physician PCP - General 07/15/20 Savanah Gaming PA-C Assigned PCP 06/24/20 08/25/20 [id number] [place] [address] documented as of this encounter
--- OUTSIDE RECORDS SUMMARY | 2022-01-16 09:03 | XMS_ITS ---
:1950 Author Care Team Providers Name Role Phone EILEEN ARECHIGA MD Primary Care Provider [phone] Allergies None recorded. Medications Name Status Start [...] -[facility]: [address] [address], [place] ? ? UR ABNORMA Appearance turbid clear Final [place] L -[facility]: [address] [facility] 200, Center ? ? UR ? Glucose negative negative Final [place] -[facility] mg/dL mg/dL [facility]: [address] [address], [place] ? ? UR ? Bilirubin negative negative Final [place] -[facility]: [address] [facility] 200, [place] ? ? UR ? Ketones negative negative Final [place] -[facility] mg/dL mg/dL [facility]: [address] [place] [address], Center ? ? UR ? Sp. [place] <=1.005 1.010-1.0 Final [place] -[facility] 25 [facility]: [address] [place] [address] ? ? UR ? pH -[facility] 5.0 5.0-8.0 Final [place] [facility]: [address] [place] [address], Center ? ? UR ? Protein negative negative Final [place] -[facility] mg/dL mg/dL [facility]: [address] [place] [address] ? ? UR ? Urobilinogen 0.2 normal Final [place] -[facility]: [address] [place] [address] ? ? UR ABNORMA Nitrites positive negative Final [place] -[facility]: [address] [place] [address] ? ? UR ABNORMA Blood moderate negative Final [place] L -[facility]: [address] [place] [address] ? ? UR ABNORMA Leukocytes large negative Final [place] -[facility]: [address] [place] [address] ? ? UR ? Performed by aida Alvares ? Final [place] [facility]: [address] [place] [address] ? ? UR ? Total Urine 20 /mL ? Final [place] Volume (mL) [facility]: [address] [place] [address] 11/28/2021 Urinalysis, ABNORMA U-WBC 50 - 100 0 - 2 Final [place] Microscopic L [hpf] [hpf] [facility]: [address] [place] [address] ? ? ? U-RBC 0 - 2 [hpf] 0 - 2 Final [place] [hpf] [facility]: [address] [place] [address] ? ? ABNORMA Bacteria large [hpf] negative Final [place] L [hpf] [facility]: [address] [place] [address] ? ? ? Squamous Epi small /lpf negative, Fin al [place] small [facility] - /[facility]pf [facility]: [address] [place] [address], [place] 11/28/2021 Culture, UR ABNORMA Final Report microbiolog ? Final [place] Urine L y results [facility]: [address] [place] [address], [place] 11/02/2021 Prostate Cnb ? Report Title comment [...] [employer] : Performed [address] 10/14/2021 Urinalysis, UR ? Color yellow yellow Final [place] Dipstick -[facility]: [address] ? ? UR ? Appearance clear clear Final [place] -[facility]: [address] ? ? UR ? Glucose negative negative Final [place] [facility] mg/dL mg/dL [facility]: [address] ? ? UR ? Bilirubin negative negative Final [place] -[facility]: [address] ? ? UR ABNORMA Ketones trace mg/dL negative Final [place] L -[facility] mg/dL [facility]: [address] ? ? UR ? Sp. [place] 1.025 1.010-1.0 Final [place] -[facility]: [address] ? ? UR ? pH -[facility] 5.5 5.0-8.0 Final [place] [facility]: [address] ? ? UR ABNORMA Protein 30 mg/dL negative Final [place] -[facility] mg/dL [facility]: [address] ? ? UR ? Urobilinogen 0.2 normal Final [place] [facility]: [address] ? ? UR ? Nitrites negative negative Final [place] [facility]: [address] [place] [address], Center ? ? UR ABNORMA Blood large negative Final [place] -[facility]: [address] [place] [address], Center ? ? UR ABNORMA Leukocytes large negative Final [place] -[facility]: [address] [place] [address], Center ? ? UR ? Performed by christie Y ? Final [place] [facility]: [address] [place] [address], Center ? ? UR ? Total Urine 40 /mL ? Final [place] Volume (mL) [facility]: [address] [place] [address] 10/14/2021 Urinalysis, ABNORMA U-WBC packed 0 - 2 Final [place] Microscopic L [hpf] [hpf] [facility]: [address] [place] [address], Center ? ? ABNORMA U-RBC 2 - 5 [hpf] 0 - 2 [facility]: [address] [place] [address] ? ? ABNORMA Bacteria moderate negative Final [place] L [hpf] [hpf] [facility]: [address] [place] [address] ? ? ? Squamous Epi negative negative, Final [place] [facility] - /lpf [facility]: [address] [place] [address], Center 10/14/2021 PSA, Total, BLDV ? PSA, Total 1.43 NG/mL 0.00-4 .00 Final [place] Serum or NG/mL [facility] - Plasma [facility]: [address] [place] [address] 10/14/2021 Culture, UR ? Final Report microbiolog ? Final [place] Urine y results [facility]: [address] [place] [address] 09/15/2021 Urinalysis, UR ? Color yellow yellow Final [place] Dipstick -[facility]: [address] [place] [address] ? ? UR ABNORMA Appearance cloudy clear Final [place] L -[facility]: [address] [place] [address] ? ? UR ? Glucose negative negative Final [place] -[facility] mg/dL mg/dL [facility]: [address] [place] [address] ? ? UR ? Bilirubin negative negative Final [place] [facility]: [address] [address], [place] ? ? UR ? Ketones negative negative Final [place] -[facility] mg/dL mg/dL [facility]: [address] [address], [place] ? ? UR ? Sp. [place] 1.025 1.010-1.0 Final [place] -[facility]: [address] [address], [place] ? ? UR ? pH -[facility] 6.0 5.0-8.0 Final [place] [facility]: [address] [address], [place] ? ? UR ABNORMA Protein 30 mg/dL negative Final [place] L -[facility] mg/dL [facility]: [address] [address], [place] ? ? UR ? Urobilinogen 0.2 normal Final [place] [facility]: [address] ? ? UR ? Nitrites negative negative Final [place] [facility]: [address] ? ? UR ABNORMA Blood moderate negative Final [place] -[facility]: [address] [address], [place] ? ? UR ABNORMA Leukocytes large negative Final [place] -[facility]: [address] [address], [place] ? ? UR ? Performed by jasmyne Bustillos ? Final [place] [facility]: [address] ? ? UR ? Total Urine 60 /mL ? Final [place] Volume (mL) [facility]: [address] 09/15/2021 Urinalysis, ABNORMA U-WBC packed 0 - 2 Final [place] Microscopic L [hpf] [hpf] [facility]: [address] ? ? ABNORMA U-RBC 2 - 5 [hpf] 0 - 2 Final [place] L [hpf] [facility]: [address] ? ? ABNORMA Bacteria small [hpf] negative Final [place] L [hpf] [facility]: [address] [address], [place] ? ? ? Squamous Epi negative negative, Final [place] /lpf small [facility] - /lpf [facility]: [address] [address], [place] 09/15/2021 Culture, UR ? Final Report microbiolog ? Final [place] Urine y results [facility]: [address] [place] [address] 09/09/2021 Urinalysis, UR ? Color yellow yellow Final [place] Dipstick -[facility]: [address] [place] [address], Center ? ? UR ? Appearance clear clear Final [place] -[facility] [address] [place] [address] ? ? UR ? Glucose negative negative Final [place] -[facility] mg/dL mg/dL [facility]: [address] [place] [address] ? ? UR ? Bilirubin negative negative Final [place] [facility]: [address] [place] [address] ? ? UR ? Ketones negative negative Final [place] -[facility] mg/dL mg/dL [facility]: [address] [place] [address] ? ? UR ? Sp. [place] 1.020 1.010-1.0 Final [place] -[facility]: [address] [place] [address] ? ? UR ? pH -[facility] 5.5 5.0-8.0 Final [place] [facility]: [address] ? ? UR ABNORMA Protein 30 mg/dL negative Final [place] L -[facility] mg/dL [facility]: [address] [address], [place] ? ? UR ? Urobilinogen 0.2 normal Final [place] [facility]: [address] ? ? UR ? Nitrites negative negative Final [place] -[facility]: [address] [address], [place] ? ? UR ABNORMA Blood moderate negative Final [place] L -[facility]: [address] ? ? UR ABNORMA Leukocytes large negative Final [place] -[facility]: [address] [address], [place] ? ? UR ? Performed by sylvester Case ? Final [place] [facility]: [address] [place] [address], Center ? ? UR ? Total Urine 80 /mL ? Final [place] Volume (mL) [facility]: [address] [place] [address] 09/09/2021 Urinalysis, ABNORMA U-WBC 50 - 100 0 - 2 Final [place] Microscopic L [hpf] [hpf] [facility]: [address] [place] [address], Center ? ? ? U-RBC 0 - 2 [hpf] 0 - 2 Final [place] [hpf] [facility]: [address] [place] [address], Center ? ? ABNORMA Bacteria small [hpf] negative Final [place] L [hpf] [facility]: [address] [place] [address], Center ? ? ? Squamous Epi small /lpf negative, Fin al [place] small [facility] - /lpf [facility]: [address] [place] [address], Center Past Encounters 11/28/2021 Retention of Urine Keagan Wallace MD: [address] [place] [phone], Ph. 11/02/2021 Prostate Nodule; Recurrent Urinary Tract Infection; Prostatitis Keagan Wallace MD: [address] [place] [phone], Ph. 11/02/2021 Raised Prostate Specific Antigen Keagan Wallace MD: [address] [place] [phone], Ph. 10/14/2021 Urinary Tract Infectious Disease; Retent ion of Urine Keagan Wallace MD: [address] [place] [phone], Ph. 10/14/2021 Raised Prostate Specific Antigen Keagan Wallace MD: [address] [place] [phone], Ph. 09/15/2021 Dysuria Keagan Wallace MD: [address] [place] [phone], Ph. 09/09/2021 Prostatitis; Incomplete Emptying of Blad alen; Prostate Nodule Keagan Wallace MD: [address] [facility], [address], [place] [phone], Ph. Social History Tobacco Smoking Status Never [...]
--- OUTSIDE RECORDS SUMMARY | 2022-01-16 09:03 | XMS_ITS | Encounter Summary ---
:1950 Author Care Team Providers Name Role Phone Estela Elaine MD Primary Care Provider [phone] Reason for Visit TRUS biopsy Assessment and [...] available. Plan of Care Reminders Provider Appointments [address] [phone] 01/20/2022 12:30PM Keagan Monroy MD ? Established 01/23/2022 10:00AM [facility] ? Established 03/03/2022 1:00PM [facility] Biopsy, Prostate 11/02/2021 [place] [facility] Referral None recorded. ? ? Procedures [...] Social History Tobacco Smoking Status Never Smoker Has tobacco cessation counseling been provided? Y What was the date of your most recent tobacco screening? 05/2021 Do you use any illicit or recreational drugs? N What is your level of alcohol consumption? None On what date was tobacco cessation counseling provided? 05/2021 What is your level of caffeine consumption? Moderate Do you or have you ever used any other forms of tobacco or n icotine? N Functional Status Unknown. Past Encounters 11/02/2021 Prostate Nodule; Recurrent Urinary Tract Infection; Prostatitis Keagan Wallace MD: [address] [place] [phone], Ph. 11/02/2021 Raised Prostate Specific Antigen Keagan Wallace MD: [address] [place] [phone], Ph. 10/14/2021 Raised Prostate Specific Antigen Keagan Wallace MD: [address] [place] [phone], Ph. 10/14/2021 Urinary Tract Infectious Disease; Retent ion of Urine Keagan Wallace MD: [address] [place] [phone], Ph. History of Present Illness Note: <div>This [...]
--- OUTSIDE RECORDS SUMMARY | 2022-01-16 09:03 | XMS_ITS | Encounter Summary ---
:1950 Author Care Team Providers Name Role Phone Estela Elaine MD Primary Care Provider [phone] Reason for Visit Lab/Nursing Visit Assessment and Plan 1. Retention of urine ? urinalysis, dipstick ? culture, urine Discussion Note: None recorded.Patient educational handouts: No information available. Plan of Care Reminders Provider Appointments [address] [phone] 01/20/2022 Keagan Wallace MD 12:30PM ? Established 01/23/2022 Tasia Gottlieb, 10:00AM ESTUARDO ? Established 03/03/2022 1:00PM [facility] Urinalysis, Dipstick 11/28/2021 [place] [facility] ? Culture, Urine 11/28/2021 [place] [facility] Referral None [...] -[facility]: [address] [address], [place] ? ? UR ABNORMAL Appearance turbid clear Final [place] [facility]: [address] [address], [place] ? ? UR ? Glucose negative negative Final [place] -[facility] mg/dL mg/dL [facility]: [address] [address], [place] ? ? UR ? Bilirubin negative negative Final [place] [facility]: [address] [address], [place] ? ? UR ? Ketones negative negative Final [place] -[facility] mg/dL mg/dL [facility]: [address] [address], [place] ? ? UR ? Sp. [place] <=1.005 1.010-1.0 Final [place] -[facility]: [address] [address], [place] ? ? UR ? pH -[facility] 5.0 5.0-8.0 Final [place] [facility]: [address] [address], [place] ? ? UR ? Protein negative negative Final [place] -[facility] mg/dL mg/dL [facility]: [address] [address], [place] ? ? UR ? Urobilinogen 0.2 normal Final [place] [facility] [address] [address], [place] ? ? UR ABNORMAL Nitrites positive negative Final [place] [facility]: [address] [address], [place] ? ? UR ABNORMAL Blood moderate negative Final [place] -[facility]: [address] [address], [place] ? ? UR ABNORMAL Leukocytes large negative Final [place] [facility]: [address] [address], [place] ? ? UR ? Performed by aida Alvares ? Final [place] [facility]: [address] [address], [place] ? ? UR ? Total Urine 20 /mL ? Final [place] Volume (mL) [facility]: [address] [place] [address] 11/28/2021 Culture, UR ABNORMAL Final Report microbiology ? Final [place] Urine results [facility]: [address] [address], [place] Allergies None recorded. Problems None recorded. Procedures [...] 11/28/2021 Retention of Urine Keagan Wallace MD: [address] [place] [phone], Ph. 11/02/2021 Prostate Nodule; Recurrent Urinary Tract Infection; Prostatitis Keagan Wallace MD: [address] [place] [address], [address] [phone], Ph. 11/02/2021 Raised Prostate Specific Antigen Keagan Wallace MD: [address] [place] [address], [address] [phone], Ph. History of Present Illness None recorded. Review of Systems None recorded. Physical Exam None recorded.
--- OUTSIDE RECORDS SUMMARY | 2022-01-16 09:03 | XMS_ITS | Encounter Summary ---
:1950 Author Care Team Providers Name Role Phone Estela Elaine MD Primary Care Provider [phone] Reason for Visit Injection Assessment and Plan 1. Raised prostate specific antigen ? ceftriaxone 1 gram solution for injec tion Discussion Note: None recorded.Patient educational handouts: No information available. Plan of Care Reminders Provider Appointments [facility] 90 01/20/2022 12:30PM Keagan Monroy MD ? [...] Urinary Tract Infection; Prostatitis Keagan Wallace MD: [address] [place] [phone], Ph. 11/02/2021 Raised Prostate Specific Antigen Keagan Wallace MD: [address] [place] [phone], Ph. 10/14/2021 Raised Prostate Specific Antigen Keagan aWllace MD: [address] [place] [phone], Ph. 10/14/2021 Urinary Tract Infectious Disease; Retent ion of Urine Keagan Wallace MD: [address] [place] [phone], Ph. History of Present Illness None recorded. Review of Systems None recorded. Physical Exam None recorded.
[2022-01-16 14:00] LABS: Albumin* 4.6 g/dL (3.3-5.0)
[2022-01-16 14:01] LABS: Chloride* 107 mmol/L (96-114); Potassium* 4.3 mmol/L (3.6-5.1); Sodium* 141 mmol/L (135-149)
[2022-01-16 14:03] LABS: Bilirubin Total* 1.5 mg/dL (0.1-1.5); Creatinine* 0.7 mg/dL (0.5-1.5); Estimated Glomerular Filt Rate 99 ml/min
[2022-01-16 14:04] LABS: Alanine Aminotransferase* 25 U/L (4-50); Alkaline Phosphatase* 101 U/L (40-150); Aspartate Amino Transferase* 26 U/L (12-35); Blood Urea Nitrogen* 28 mg/dL (7-30); Calcium* 9.7 mg/dL (8.4-10.6); Carbon Dioxide* 23 mmol/L (20-32); Glucose* 110 mg/dL (60-115); Total Protein* 7.8 g/dL (6.0-8.3)
== END 2022-01-16 08:58 | disposition home or self-care (01) ==
PROVIDERS: PCP Family Medicine; Visit Provider Family Medicine
DX: Z01.818 Encounter for other preprocedural examination (principal); I48.91 Unspecified atrial fibrillation; N39.0 Urinary tract infection, site not specified
CPT/HCPCS: 80053; 87086

== ENCOUNTER 2022-01-27 08:11 | Outpatient (CLI) | payer MEDICARE, SELFPAY ==
--- OUTSIDE RECORDS SUMMARY | 2022-02-03 09:20 | XMS_ITS | Clinical Summary ---
:1950 Author Organization [facility] Address [address] [place] [address] Care Team Providers Name Role Phone No Ref-Primary, Physician Primary Care Provider [phone] Lino Radford DO Unavailable Wilian Castañeda MD Unavailable Justine Laurent PA-C Unavailable [phone] Allergies No known active allergies Medications [...] Addre ss Type Group BCBS BCBS MEDICARE [id number] 2020-Edd [phone] [address] [address] Medicare [place]VANTAGE [place] [address] [place] [address] Care Teams Insecticide Supervisor Relationship Specialty Start Date End Date No Ref-Primary, Physician PCP - General 07/15/20 Lino Radford DO Assigned PCP 08/26/20 [address] [place] [address] Wilian Castañeda MD Assigned Heart and Vascular 09/12/20 [address] Provider [address] [id number] Justine Laurent, Assigned Surgical Provider 01/02/21 [facility] [address] [id number]
--- OUTSIDE RECORDS SUMMARY | 2022-02-03 09:20 | XMS_ITS | Clinical Summary ---
:1950 Author Organization [employer] [place] [address] Care Team Providers Name Role Phone Yelena Multani DO Primary Care Provider [phone] Allergies No known active allergies Medications Medication Sig Dispensed Refills Start End Date Status Date oxyCODONE-acetam Take 1 Tablet by 15 Tablet 0 Active inophen mouth every 6 2 (PERCOCET) 5-325 hours if needed mg per for Pain. Max tabletIndication acetaminophen s: Benign dose: 4000mg in 24 prostatic hrs. hyperplasia with urinary obstruction oxyCODONE Take 1-2 Tablets 10 Tablet 0 Act husam (ROXICODONE) 5 (5-10 mg) by mouth 2 mg immediate every 4 hours if release needed for Pain tabletIndication (For severe s: Benign pain.). prostatic hyperplasia with urinary obstruction linezolid Take 600 mg by 0 01/20/20 Disco ntinued (ZYVOX) 600 mg mouth two times 22 (*Patient states tablet daily. no longer taking/Not on sending fa cility list) Active Problems Problem Noted Date BPH (benign prostatic hyperplasia) 01/20/2022 Recurrent UTI 01/20/2022 Chronic systolic CHF (congestive heart failure) 2021 Chronic atrial fibrillation 01/20/2022 Encounters Date Type Specialty Care Team Description 01/20/2022 Anesthesia Event Mary Jo Perea MD Nye, Jose A Deng MD 01/20/2022 Surgery Keagan Wallace CYSTOSCOPY BIP LATOYA West MD TRANSURETHRAL R ESECTION OF PROSTATE ELEANOR AMARILIS LITHOTOMY 01/20/2022 - Hospital Encounter Keagan Wallace Benign p rostatic 01/21/2022 MD Brett hyperplasia wit h urinary obstruc tion (Primary Dx) 01/19/2022 Travel from Last 3 Months Family History Medical History Relation Name Comments Esophageal cancer Father Relation Name Status Comments Father Social History Tobacco Use Types Packs/Day Years Used Date Never Smoker Smokeless Tobacco: Never Used Alcohol Use Standard Drinks/Week Comments Yes 0 (1 standard drink = 0.6 oz pure alcoho l) Sex Assigned at Date Recorded Not on file COVID-19 Exposure Response Date Recorded In the last 10 days, have you been in contact No / Unsure 01/19/2022 11:31 AM CDT with someone who was confirmed or suspected to have Coronavirus/COVID-19? Obstetrics History Last Filed Vital Signs Vital Sign Reading Time Taken Comments Blood Pressure 128/76 01/21/2022 7:56 AM CDT Pulse 92 01/21/2022 7:56 AM CDT Temperature 36.8 ??C (98.2 ??F) 01/21/2022 7:56 AM CDT Respiratory Rate 17 01/21/2022 7:56 AM CDT Oxygen Saturation 97% 01/21/2022 7:56 AM CDT Inhaled Oxygen Concentration - - Weight 88.5 kg (195 lb 1.7 oz) 01/20/2022 9:21 AM CDT Height 180.3 cm (5' 11) 01/20/2022 9:21 AM CDT Body Mass Index 27.21 01/20/2022 9:21 AM CDT Plan of Treatment Health Maintenance Due Date Last Done Comments Tdap 1961 Depression screening for age 12+ 1962 BMI (ht and wt on same day) for age 18+ 1968 Hepatitis C screening for age 18-79 1968 Tetanus booster 1970 Colonoscopy through age 75 1995 Lipids for age 45-75 1995 Zoster (shingles) series for age 50+ (1 of 2) 2000 Pneumococcal series for age 65+ (1 - PCV) 2015 COVID-19 vaccine series (2 - Moderna series) 04/15/2021 Influenza for age 65+ 12/01/2021 Procedures Procedure Name Priority Date/Time Associated Comments Diagnosis BASIC METABOLIC PANEL Early AM 01/21/2022 6:58 AM Results for this CDT procedure are i n the results section. HEMOGLOBIN Early AM 01/21/2022 6:58 AM Results f or this CDT procedure are i n the results section. PATH TISSUE EXAM Today 01/20/2022 12:31 Results for this PM CDT procedure are i n the results section. ENDOTRACHEAL TUBE Routine 01/20/2022 12:01 Result s for this PM CDT procedure are i n the results section. ENDOTRACHEAL TUBE Routine 01/20/2022 12:01 Result s for this PM CDT procedure are i n the results section. ENDOTRACHEAL TUBE Routine 01/20/2022 12:01 Result s for this PM CDT procedure are i n the results section. CYSTOSCOPY BIPOLAR Tier 3 01/20/2022 11:22 RETENTION OF URINE RESECTION AM CDT TRANSURETHRAL PROSTATE Case Notes 90 MINS-SWINGDORSAL LITHOTOM Y Special Needs 5 ft 11 in, 89.8 kg, BMI 27. 62COVID-19 result in scans w/H&P SCAN-CARDIAC STRIP 01/20/2022 12:00 AM CDT . from Last 3 Months Results Hemoglobin (01/21/2022 6:58 AM CDT) P athologist Signature HEMOGLOBIN 13.5 13.5 - 17.5 01/21/2022 [facility] g/dL 7:32 AM CDT LABORATORY MCV 93 80 - 100 fL 01/21/2022 [facility] 7:32 AM CDT LABORATORY Specimen Anatomical Collection Method / Collection Time Recei ernesto Time (Source) Location / Volume Laterality Blood BLOOD SPECIMEN / Venipuncture / 01/21/2022 6:58 2021 7:24 Unknown Unknown AM CDT AM CDT Keagan Wallace MD HEMATOLOGY Performing Organization Address City/State/ZIP Code Phon e Number [facility] SENDOUT INTERNAL ZIP [place], [place] [phone] [place] [address] (ABNORMAL) Basic Metabolic Panel (01/21/2022 6:58 AM CDT) Analysis Performed At Patho logist Time Signature SODIUM 139 135 - 145 01/21/2022 [facility] mmol/L 8:37 AM [facility] POTASSIUM 4.5 3.5 - 5.0 01/21/2022 [facility] mmol/L 8:37 AM [facility] CHLORIDE 109 98 - 110 01/21/2022 [facility] mmol/L 8:37 AM [facility] CO2,TOTAL 22 21 - 31 01/21/2022 [facility] mmol/L 8:37 AM [facility] ANION GAP 8 5 - 18 01/21/2022 [facility] 8:37 AM [facility] GLUCOSE 104 (H) 65 - 100 01/21/2022 [facility] mg/dL 8:37 AM [facility] CALCIUM 9.0 8.5 - 10.5 01/21/2022 [facility] mg/dL 8:37 AM [facility] BUN 22 8 - 25 01/21/2022 [facility] mg/dL 8:37 AM [facility] CREATININE 0.73 0.72 - 01/21/2022 [facility] 1.25 mg/dL 8:37 AM [facility] BUN/CREAT RATIO 30 (H) 10 - 20 01/21/2022 [facility] 8:37 AM [facility] eGFR >90 >90 01/21/2022 [facility] mL/min/1.7 8:37 AM [facility] 3m2 LABORATORY Comment: As of 2021, eGFR is calcu lated by the CKD-EPI creatinine equation without race adjustment. eGFR can be inf luenced by muscle mass, exercise, and diet. The reported eGFR is an estimation only and is only applicable if the renal function is stable. Specimen Anatomical Collection Method / Collection Time Recei ernesto Time (Source) Location / Volume Laterality Blood BLOOD SPECIMEN / Venipuncture / 01/21/2022 6:58 2021 7:24 Unknown Unknown AM CDT AM CDT Keagan Wallace MD CHEMISTRY Performing Organization Address City/State/ZIP Code Phon e Number [facility] SENDOUT INTERNAL ZIP [place] [phone] [facility] PATH TISSUE EXAM (01/20/2022 12:31 PM CDT) Component Value Ref Test Analysis Performed At [facility] gist Range Method Time Signature Case Report Pathology Report ?Case: [id number] ? 01/23/2022 [facility] Authorizing Provider: ??Keagan Wallace MD ?? Collected: ? 01/20/2022 1231 ? 11:28 AM [facility] Ordering Location: ? [facility] ?Received: ?01/20/2022 1247 ? CDT [facility] Pathologist: ? Yasmeen Chan MD ? ENTRAL Specimen: ?Prostate, pr ostate chips ? LABORATORY Final PROSTATE, TRANSURETHRAL RESECTION: 01/23 [facility] Electronically Diagnosis 1. Nodular hyperplasia 11:28 AM [facility] signed by Dustin, 2. Patchy chronic inflammation CDT LABORATORY-C Yasmeen Bernardo MD on 3. Negative for atypia and malignancy ENTRAL 01/23/2022 at LABORATORY 11:27 AM Clinical BPH 01/23/2022 [facility] Information 11:28 AM [facility] CDT LABORATORY-C ENTRAL LABORATORY Gross A) Received in formalin, lab eled with the patient's name and prostate, prostate chips, is a 6 g, 5 x 4 x 1.5 cm aggregate of garcia-pink rubbery cauterized tissue. ??Tissue is admixed with multiple, 0.1- 01/23/2022 [facility] Description 0.3 cm brown calculi. ??Spec imen (minus visible calculi) is entirely submitted in 6 cassettes. 11:28 AM [facility] CDT LABORATORY Specimen is placed in formalin at 12: 58 on 01/20/2022. NRM 01/20/2022 Microscopic The final 01/23/2022 [facility] Description diagnosis is 11:28 AM [facility] based on CDT LABORATORY-C microscopic ENTRAL examination of LABORATORY appropriate sections of all specimens. Additional 01/23/2022 [facility] Information Interpreted at [facility], Central Laboratory - [address], [place] [address] 11:28 AM [facility]ALTH CDT LABORATORY-C ENTRAL LABORATORY Specimen Anatomical Collection Method Collection Time Receive d Time (Source) Location / / Volume Laterality Tissue SPECIMEN FROM 01/20/2022 12:31 01/20/2022 PROSTATE / Unknown PM CDT 12:47 PM CDT Keagan Wallace MD PATHOLOGY/CYTOLOGY Performing Organization Address City/State/ZIP Code Phon e Number [facility] [address] [place] [address] LABORATORY-CENTRAL 2000 LABORATORY [facility] SENDOUT INTERNAL ZIP [place] [phone] [place] [address] HC TUBE PR1, [facility] STYLET PR1, HG MOUTHPIECE PR1 (01/20/2022 12:01 PM CDT) Narrative Lopez Mathews CRNA - 01/20/2022 12:01 PM CDT Lopez Mathews CRNA ? 01/20/2022 12:02 PM Procedure: ETT Patient location during procedure: OR ETT Properties Mask Ventilation: easy Final Technique: direct laryngoscopy Type: straight Location: oral Cuffed: yes Tube Size: 8.0 mm Stylet: yes Laryngoscope Blade: Mac Blade Size: 3 Cormack-Lehane Grade View: 1 Insertion Attempts: 1 Placement Verification: auscultation, en d tidal CO2, symmetrical chest wall movement and cuff palpation Assessment: pharynx clear, atraumatic an d dentition unchanged Secured at: 24 Measured From: lips Tooth guard used and removed: yes Difficulty: 0 (not difficult) Electronically signed by Josh Coto CRNA ? Mary Jo Perea MD ANESTHESIA PX NOTE ORDERABLE S SCAN-CARDIAC STRIP (01/20/2022 12:00 AM CDT) Narrative 01/20/2022 12:00 AM CDT This result has an attachment that is no t available. Ordered by an unspecified provider. Other Clinical Staff OTHER from Last 3 Months Insurance Payer Benefit Plan / Subscriber ID Effective Dates Phone Addre ss Type Group MEDICARE PART A MEDICARE PART A [id number] 2015-Presen ATTN: CLAIMS - HB USE ONLY HB ONLY t [address] [place] [address] BLUE CROSS [place] BLUE CROSS [id number] 2020-[place] [phone] [place] [id number] Advance Directives Latest Code Status on File Code Status Date Activated Date Inactivated Comments Full Code 01/20/2022 9:01 AM 01/21/2022 2:38 PM Should be discussed pre operatively with anesthesia or surgeon Code Status Discussion: Not Discussed Care Teams Bakery Team Member Relationship Specialty Start Date End Date Yelena Multani, PCP - General Family Practice 01/02/[address] [place] [id number]
--- OUTSIDE RECORDS SUMMARY | 2022-02-03 09:20 | XMS_ITS | Encounter Summary ---
:1950 Author Organization [facility] Address [address] [place] [address] Care Team Providers Name Role Phone No Ref-Primary, Physician Primary Care Provider [phone] Lino Radford DO Unavailable Wilian Castañeda MD Unavailable Reason for Visit Reason Onset Date Comments Clinic Care Coordination - Follow-up 11/08/2020 blo od in urine---UTI Encounter Details Date Type Department Care Team Description 11/08/2020 Telephone [facility] Heart Denisa Fisher, Clinic Care Coordination Clinic Lizzy RN - Follow-up (blood in [address] urine---U TI ) [facility] [address] [place] [address] Social History Tobacco Use Types [...] after his OV with Dr Mistry at [facility]. JNelsonRN Telephone Encounter - Jerri Rincon RN - 11/12/2020 2:05 PM CDT 11/12/[address] order recd from Dr Castañeda -Stop Eliquis - Pt should see his PCP to determine source of bleeding. He may possibly need Urology consult or Watchman -Cancel DCCV for now Spoke w pt and explained recommendations. Pt has appt to establish care with Dr Cody Mistry at [facility] on 11/18. Plan was made to connect [...] does have follow up with PCP at [facility] in [place] on 11/18 he will be seeing Dr Cody Mistry. Patient agreed with plan and provided verbal understanding regarding above. MICHAEL Bynum documented in this encounter Plan of Treatment Not on filedocumented as of this encounter Visit Diagnoses Not on filedocumented in this encounter Care Teams Grey Percher Relationship Specialty Start Date End Date No Ref-Primary, Physician PCP - General 07/15/20 Lino Radford DO Assigned PCP 08/26/20 [address] [place] [address] Wilian Castañeda MD Assigned Heart and Vascular 09/12/20 [address] [place] Provider [address] [place] [address] documented as of this encounter
--- OUTSIDE RECORDS SUMMARY | 2022-02-03 09:20 | XMS_ITS | Encounter Summary ---
:1950 Author Organization [facility] Address [address] [place] [address] Care Team Providers Name Role Phone No Ref-Primary, Physician Primary Care Provider [phone] Lino Radford DO Unavailable Wilian Castañeda MD Unavailable Justine Laurent PA-C Unavailable [phone] Encounter Details Date Type Department Care [...] on filedocumented in this encounter Care Teams Schedule Checker Relationship Specialty Start Date End Date No Ref-Primary, Physician PCP - General 07/15/20 Lino Radford DO Assigned PCP 08/26/20 [address] [place] [address] Wilian Castañeda MD Assigned Heart and Vascular 09/12/20 [address] [place] Provider [address] [place] [id number] Justine Laurent, Assigned Surgical Provider 01/02/21 [place] [address] [id number] documented as of this encounter
--- OUTSIDE RECORDS SUMMARY | 2022-02-03 09:20 | XMS_ITS | Encounter Summary ---
:1950 Author Organization [place] Address [address] [place] [address] Care Team Providers Name Role Phone No Ref-Primary, Physician Primary Care Provider [phone] Lino Radford DO Unavailable Wilian Castañeda MD Unavailable Reason for Visit Reason Comments Frequent UTI's Recs were faxed to [facility] Encounter Details Date Type Department Care Team Description 12/23/2020 Virtual Visit [facility] Justine Laurent y tract Urology Clinic [place] NENA Cervantes infection with [facility] [address] hematuria, site [address] [address] unspecified ([place] [address] Dx) [address] [place], [place] (Work) [address] Social History Tobacco Use [...] ??? Frequent UTI's Recs were faxed to [facility] Diya Sanders LPN documented in this encounter Plan of Treatment Not on filedocumented as of this encounter Visit Diagnoses Diagnosis Urinary tract infection with hematuria, site unspecified - Primary documented in this encounter Care Teams Bakery Pastry Internship Relationship Specialty Start Date End Date No Ref-Primary, Physician PCP - General 07/15/20 Lino Radford DO Assigned PCP 08/26/20 [address] [place] [address] Wilian Castañeda MD Assigned Heart and Vascular 09/12/20 [address] [facility] Provider [address] [place] [id number] documented as of this encounter
--- OUTSIDE RECORDS SUMMARY | 2022-02-03 09:20 | XMS_ITS | Encounter Summary ---
:1950 Author Organization [facility] Address [address] [place] [address] Care Team Providers Name Role Phone No Ref-Primary, Physician Primary Care Provider [phone] Lino Radford DO Unavailable Wilian Castañeda MD Unavailable Encounter Details Date Type Department Care Team Description 12/02/2020 Medical Correspondence [facility] Scan, CLINIC REFERRAL Health Info [facility] Non-Provider [facility] Sr[facility] AND CLINICS [address] [place] [phone] Social History [...] on filedocumented in this encounter Care Teams Assistant Boiler Operator Relationship Specialty Start Date End Date No Ref-Primary, Physician PCP - General 07/15/20 Lino Radford DO Assigned PCP 08/26/20 [address] [place] [address] Wilian Castañeda MD Assigned Heart and Vascular 09/12/20 [address] [facility] Provider [address] [place] [address] documented as of this encounter
--- OUTSIDE RECORDS SUMMARY | 2022-02-03 09:20 | XMS_ITS | Encounter Summary ---
:1950 Author Organization [facility] Address [address] [place] [address] Care Team Providers Name Role Phone No Ref-Primary, Physician Primary Care Provider [phone] Lino Radford DO Unavailable Wilian Castañeda [...] on filedocumented in this encounter Care Teams Child Care Cook Relationship Specialty Start Date End Date No Ref-Primary, Physician PCP - General 07/15/20 Lino Radford DO Assigned PCP 08/26/20 [address] [place] [address] Wilian Castañeda MD Assigned Heart and Vascular 09/12/20 [address] [facility] Provider [address] [id number] documented as of this encounter
--- OUTSIDE RECORDS SUMMARY | 2022-02-03 09:21 | XMS_ITS | Encounter Summary ---
:1950 Author Organization [place] Address [facility] [place] [address] Care Team Providers Name Role Phone No Ref-Primary, Physician Primary Care Provider [phone] Lino Radford DO Unavailable Reason for Referral (Routine) - Closed Specialty Diagnoses / Procedures Referred By Contact Refer red To Contact Diagnoses Chronic atrial fibrillation (H) Wilian Turner MD [address] [place] [place] [address] Referral ID Status Reason Start Date Expiration Date Visits Requ ested Visits Authorized [id number] Closed 09/01/2020 09/01/2021 1 1 V Testing (Routine) - Closed Specialty Diagnoses / Procedures Referred By Contact Refer red To Contact Cardiology Diagnoses Chronic atrial fibrillation (H) Wilian Turner, Cv Cardiac Services Procedures Leadless registered respiratory technician 3 to 7 Days ZZHC EXT ECG > 48HR TO 21 DAY RCRD W/CONECT INTL RCRD ZZC EXT ECG > 48HR TO 21 DAY REVIEW AND INTERPRETATN IL EXT ECG > 48HR TO 21 DAY RCRD W/CONECT INTL NANCY HOOVER [address] [place] EXT ECG > 48HR TO 21 DAY REVIEW AND INTERPRETATN HC EXT ECG > 48HR TO 21 DAY RCRD W/CONECT INTL RCRD [address] [place] [address] [address] [place] [place] [address] [place] [address] Referral ID Status Reason Start Date Expiration Date Visits Requ ested Visits Authorized [id number] Closed 09/01/2020 09/01/2021 1 1 V Testing [...] ZZHC STATISTIC IV PUSH SINGLE INITIAL SUBSTANCE IL ECHO MYOCARD BX IL INJECTION, PERFLUTREN LIPID MICROSPHERES, PER ML IL TTE W/DOPPLER, COMPLETE [address] [place] IV PUSH SINGLE, INITIAL S UBSTANCE IL TTE W/DOPPLER, COMPLETE IL TTE W/DOPPLER, COMPLETE HC US GUIDE FOR PERICARDIOCENTESIS HC ECHO MYOCARD BX HC IV PUSH SINGLE, INITIAL SUBSTANCE HC STATISTIC IV PUSH SINGLE INITIAL SUBSTANCE [address] HC ECHO COMPLETE W DOPPLER W CONTRAST HC ECHO COMPLETE W DOPPLER W/O CONTRAST [address] [address] [place] [place] [address] Referral ID Status Reason Start Date Expiration Date Visits Requ ested Visits Authorized [id number] Closed 09/01/2020 09/01/2021 1 1 Reason for Visit Reason Comments New Patient A-fib CV Cardio consult (Routine) - Closed Specialty Diagnoses / Procedures Referred By Contact Refer red To Contact Cardiovascular Disease Diagnoses Chronic atrial fibrillation (H) Lion Radford DO Ru [facility] [address] [address] [place] [address] [address] [place] [address] Phone: Fax: Referral ID Status Reason Start Date Expiration Date Visits Requ ested Visits Authorized [id number] Closed 08/23/2020 08/23/2021 1 1 Encounter Details Date Type Department Care Team Description 09/01/2020 Office Visit [facility] [place] [address] [place], [place] [id number] Chronic atrial Heart Clinic Wilian Patel MD [address] [facility] [address] [place] [id number] fibrillation (H) [address] [facility] [address] [place] [address] Social History [...] atrial fibrillation. Patient recently moved from [place] to [place]. He was told in the past that he had A. fib, however he denies actually having any physical back in [place]. Here, he was evaluated by PCP and [...] on phone: None Gets together: None Attends hindu service: None Active member of club or organization: None Attends meetings of clubs or organizations: None Relationship status: None ??? Intimate partner violence Fear of current or ex partner: None Emotionally abused: None Physically abused: None Forced sexual activity: None Other Topics Concern ??? Parent/sibling w/ CABG, [place] or angioplasty before 65F 55M? Not Asked [...] Chronic atrial fibrillation ([place] [address] [place] [address] documented in this encounter Plan of Treatment Scheduled Referrals Name Type Priority Associated Diagnoses Order S chedule Follow-Up with Referral Routine Chronic atrial Expected: Patient Account Liaison fibrillation (H) 05/2020 (Approximate), Expires: 09/01/2021 documented as of this encounter Procedures Procedure Name Priority Date/Time Associated Diagnosis Comme nts EKG 12-LEAD Routine 09/02/2020 4:09 PM Chronic atrial Results for this COMPLETE W/READ - CDT fibrillation (H) proced ure are in CLINICS the results section. documented in this encounter Results LEADLESS ROLLER PNEUMATIC APPLICATION AND INTERPRETATION 3 TO 7 DAY [...] PM CDT Narrative 09/29/2020 2:20 PM CDT [id number]^YUE^WILIAN^TJ [facility] [address] [facility] [address] [place] [address] Name: MARLON BENTON : 1950 Study Date: 09/29/2020 12:50 PM Age: 70 yrs Gender: Male Patient Location: [facility] Reason For Study: Chronic atrial fibrill ation (H) Ordering Physician: WILIAN TURNER Referring Physician: WILIAN TURNER A Performed By: Silvia Rubio BSA: 2.3 m2 Height: 71 in Weight: 243 lb HR: 112 BP: 120/82 mmHg Procedure Complete Echo Adult. [facility] ([facility] #[id number]) given intravenously. Interpretation Summary The left ventricle [...] Procedure Note Odessa Aguila MD - 09/29/2020 [id number]^YUE^WILIAN^[facility] [address] [facility] [address] [place] [address] Name: MARLON BENTON : 1950 Study Date: 09/29/2020 12:50 PM Age: 70 yrs Gender: Male Patient Location: [facility] Reason For Study: Chronic atrial fibrill ation (H) Ordering Physician: WILIAN TURNER Referring Physician: IWLIAN TURNER Performed By: Silvia Rubio BSA: 2.3 m2 Height: 71 in Weight: 243 lb HR: 112 BP: 120/82 mmHg Procedure Complete Echo Adult. [facility] ([facility] #[id number]) given intravenously. Interpretation Summary The left ventricle [...] fibrillation documented in this encounter Care Teams Wrapper Sorter Relationship Specialty Start Date End Date No Ref-Primary, Physician PCP - General 07/15/20 Lino Radford DO Assigned PCP 08/26/20 [address] [place] [address] documented as of this encounter
--- OUTSIDE RECORDS SUMMARY | 2022-02-03 09:21 | XMS_ITS | Encounter Summary ---
:1950 Author Organization [place] Address [address] [place] [address] Care Team Providers Name Role Phone No Ref-Primary, Physician Primary Care Provider [phone] Savanah Gaming PA-C Unavailable [phone] Encounter Details Date Type Department Care Team [...] on filedocumented in this encounter Care Teams Digital Technician Relationship Specialty Start Date End Date No Ref-Primary, Physician PCP - General 07/15/20 Savanah Gaming PA-C Assigned PCP 06/24/20 08/25/20 [address] [place] [address] documented as of this encounter
--- OUTSIDE RECORDS SUMMARY | 2022-02-03 09:21 | XMS_ITS | Encounter Summary ---
:1950 Author Organization [place] Address [facility] [place] [address] Care Team Providers Name Role Phone No Ref-Primary, Physician Primary Care Provider [phone] Lino Radford DO Unavailable Wilian Castañeda MD Unavailable Reason for Visit Reason Onset Date Comments Medication Question 11/01/2020 Encounter Details Date Type Department Care Team Description 11/01/2020 Telephone [facility] Heart Jerri Rincon, spool carrier Question Clinic [address] [place] [address] Social History Tobacco Use Types [...] pt there are refills ready at pharmacy forcom to request. Pt also asked how long [...] voiced understanding and agreement with plan. KHerroRN 930 am documented in this encounter Plan of Treatment Not on filedocumented as of this encounter Visit Diagnoses Not on filedocumented in this encounter Care Teams Lumber Loader Relationship Specialty Start Date End Date No Ref-Primary, Physician PCP - General 07/15/20 Lino Radford DO Assigned PCP 08/26/20 [address] [place], [place] [id number] Wilian Castañeda MD Assigned Heart and Vascular 09/12/20 [address] [facility] Provider [address] [place] [address] documented as of this encounter
--- OUTSIDE RECORDS SUMMARY | 2022-02-03 09:21 | XMS_ITS | Encounter Summary ---
:1950 Author Organization [place] Address [address] [place] [address] Care Team Providers Name Role Phone No Ref-Primary, Physician Primary Care Provider [phone] Savanah Gaming PA-C Unavailable [phone] Encounter Details Date Type Department Care Team [...] on filedocumented in this encounter Care Teams Carding Utility Tender Relationship Specialty Start Date End Date No Ref-Primary, Physician PCP - General 07/15/20 Savanah Gaming PA-C Assigned PCP 06/24/20 08/25/20 [address] [place] [address] documented as of this encounter
--- OUTSIDE RECORDS SUMMARY | 2022-02-03 09:21 | XMS_ITS | Encounter Summary ---
:1950 Author Organization [place] Address [address] [place] [address]. [place] [address] Care Team Providers Name Role Phone No Ref-Primary, Physician Primary Care Provider [phone] Savanah Gaming PA-C Unavailable [phone] Reason for Referral CV Cardio consult (Routine) - Closed Specialty Diagnoses / Procedures Referred By Contact Refer red To Contact Cardiovascular Disease Diagnoses Chronic atrial fibrillation (H) Lino Radford DO [facility] Care [address] [facility] [address] [place] [address] [address] [place] [address] Phone: Fax: Referral ID Status Reason Start Date Expiration Date Visits Requ ested Visits Authorized [id number] Closed 08/23/2020 08/23/2021 1 1 Reason for Visit Reason Comments Urgent Care f/u Atrial Fib Encounter Details Date Type Department Care Team Description 08/23/2020 Office Visit [facility] Lino Radford Chronic atrial fibrillation (H); Clinic [facility] Screening for hyperlipidemia; [address] [facility] [address] [facility]; [place], [place] Need for Td v accine [address] [phone] Social History Tobacco Use Types Packs/Day Years [...] out. I will review you studies via [employer]. Someone should be calling you over the next 2 days regarding the referral. Thank you for choosing [facility] today for your health care needs. [facility] primary care At [facility], we???re constantly working to improve how we serve our patients and communities. We???re currently making changes to the way we deliver care. Most of the work is behind the scenes, but you???ll benefit from our efforts to make it easier and more convenient to stay connected to [facility] and your care team to maintain your optimal health. Benefits of a primary care provider If you don???t have a designated primary care provider yet, we encourage you to get to know our careteam online, and find a provider you???d like to see. Most of our providers have a short video on their online provider page. Visit [employer] to explore our providers and locations. Benefits [...] to your health records and care team [employer] is our online tool that makes it easy to see your health care information and communicate with your care team. [employer] allows you to: ??? View your health maintenance plan so you know when you???re due for a preventive screening ??? Send secure messages to your care team ??? View your health history and visit summaries ??? Schedule appointments ??? Complete questionnaires and eCheck-in before appointments ??? Get care from your provider with an e-visit ??? View and pay your bill Sign up at [employer]. Once you have an account, you also [...] your medication, an E-visit is completed through [employer] and your provider will respond within one business day. In-person ??? Clinic appointments: Schedule an appointment at a clinic close to you anytime online at [employer] or call [facility]. Urgent Care: Visit one of our Urgent Care locations throughout the [facility]. View locations and estimated wait times at [email or web address]. Patient Education Understanding Atrial Fibrillation ?? An [...] reviewed this educational content on 07/01/2018 ?? [phone] [employer]. All rights reserved. This information is not [...] should cut out caffeine. ?? Don't take hoej-jgu-ootskpf medicines that have caffeine in them. Also avoid medicines with pseudoephedrine. ?? Let your doctor know what medicines you take, including prescription and gjoq-qjy-asjrref medicines, as well as any supplements. They [...] your heartbeat, or an unusually fast heartbeat Pain Doctor last reviewed this educational content on 07/31/2018 ?? [phone] [employer]. All rights reserved. This information is not [...] 11/23/2020) for Routine preventive. Lino Radford DO [facility] Dinah Pat is a 70 year old who presents for the following health issues HPI ED/UC Followup: Facility: [facility] Date of visit: 08/09/20 Reason for visit: lightheadedness Current Status: stable- wants to schedule heart test Review of Systems Patient is seen for primary reason of wanting a referral to cardiology to address his atrial fibrillation. He states he has had atrial fibrillation in the past prior to moving to [place] from [place]. He is unsure exactly what it was called, but may have been paroxysmal atrial fibrillation. He tried to go for a walk a couple days ago, and he got dizzy, so he decided he needed to get his Afib treated. On my calculation during exam, he scores a 1 on [id number] risk stratification. Considering this, I told him [...] Name Type Priority Associated Diagnoses [facility] ADULT Referral Routine Chronic atrial [...] (Td) documented in this encounter Care Teams Gunner'S Mate Relationship Specialty Start Date End Date No Ref-Primary, Physician PCP - General 07/15/20 Savanah Gaming PA-C Assigned PCP 06/24/20 08/25/20 [address] [place] [address] documented as of this encounter
--- OUTSIDE RECORDS SUMMARY | 2022-02-03 09:21 | XMS_ITS | Encounter Summary ---
:1950 Author Organization [place] Address [address] [place] [address] Care Team Providers Name Role Phone No Ref-Primary, Physician Primary Care Provider [phone] Savanah Gaming PA-C Unavailable [phone] Encounter Details Date Type Department Care Team [...] on filedocumented in this encounter Care Teams It Risk Advisor Relationship Specialty Start Date End Date No Ref-Primary, Physician PCP - General 07/15/20 Savanah Gaming PA-C Assigned PCP 06/24/20 08/25/20 [address] [place] [address] documented as of this encounter
--- OUTSIDE RECORDS SUMMARY | 2022-02-03 09:21 | XMS_ITS | Encounter Summary ---
:1950 Author Organization [place] Address [facility] [place] [address] Care Team Providers Name Role Phone No Ref-Primary, Physician Primary Care Provider [phone] Lino Radford DO Unavailable Wilian Castañeda [...] on filedocumented in this encounter Care Teams Laboratory Mechanical Technician Relationship Specialty Start Date End Date No Ref-Primary, Physician PCP - General 07/15/20 Lino Radford DO Assigned PCP 08/26/20 [address] [place] [address] Wilian Castañeda MD Assigned Heart and Vascular 09/12/20 [address] [facility] Provider [address] [place] [address] documented as of this encounter
--- OUTSIDE RECORDS SUMMARY | 2022-02-03 09:21 | XMS_ITS | Encounter Summary ---
:1950 Author Organization [place] Address [facility] [place] [address] Care Team Providers Name Role Phone No Ref-Primary, Physician Primary Care Provider [phone] Lino Radford DO Unavailable Wilian Turner [...] ZZHC STATISTIC IV PUSH SINGLE INITIAL SUBSTANCE AZ ECHO MYOCARD BX AZ INJECTION, PERFLUTREN LIPID MICROSPHERES, PER ML AZ TTE W/DOPPLER, COMPLETE [address] [place] IV PUSH SINGLE, INITIAL S UBSTANCE AZ TTE W/DOPPLER, COMPLETE AZ TTE W/DOPPLER, COMPLETE HC US GUIDE FOR PERICARDIOCENTESIS HC ECHO MYOCARD BX HC IV PUSH SINGLE, INITIAL SUBSTANCE HC STATISTIC IV PUSH SINGLE INITIAL SUBSTANCE [address] HC ECHO COMPLETE W DOPPLER W CONTRAST HC ECHO COMPLETE W DOPPLER W/O CONTRAST [place] [address] [place] [address] Referral ID Status Reason Start Date Expiration Date Visits Requ ested Visits Authorized [id number] Closed 09/01/2020 09/01/2021 1 1 Reason for Visit Auth/Cert Specialty Diagnoses / Procedures Referred By Contact Refer red To Contact Cardiology Sh Cv Cardiac Se rvices [address] [facility] [place] ue [facility] [address] [place] [address] Phone: Referral ID Status Reason Start Date Expiration Date Visits Requ ested Visits Authorized [id number] 1 1 Encounter Details Date Type Department Care Team Description 09/29/2020 Hospital Encounter [facility] Wilian Turner Ch ronic [facility] MD Tj fibrillation (H) Heart Care [address] [facility] [address] [facility] [place] [address] [address] [place], [place] (Work) [address] Social History Tobacco Use Types [...] PM CDT Narrative 09/29/2020 2:20 PM CDT [id number]^YUE^WILIAN^TJ [facility] Heart Echocardiography Laboratory [address] [facility] [address] [place] [address] Name: MARLON OWENS : 1950 Study Date: 09/29/2020 12:50 PM Age: 70 yrs Gender: Male Patient Location: [facility] Reason For Study: Chronic atrial fibrill ation (H) Ordering Physician: WILIAN TURNER Referring Physician: WILIAN TURNER Performed By: Silvia Rubio BSA: 2.3 m2 Height: 71 in Weight: 243 lb HR: 112 BP: 120/82 mmHg Procedure Complete Echo Adult. Breanna ([facility] #[id number]) given intravenously. Interpretation Summary The left ventricle [...] Procedure Note Odessa Aguila MD - 09/29/2020 [id number]^YUE^WILIAN^[facility] Heart Echocardi[facility] Laboratory [address] [facility] [address] [place] [address] Name: MARLON OWENS : 1950 Study Date: 09/29/2020 12:50 PM Age: 70 yrs Gender: Male Patient Location: [facility] Reason For Study: Chronic atrial fibrill ation (H) Ordering Physician: WILIAN TURNER Referring Physician: WILIAN TURNER Performed By: Silvia Rubio BSA: 2.3 m2 Height: 71 in Weight: 243 lb HR: 112 BP: 120/82 mmHg Procedure Complete Echo Adult. Optison ([facility] #[id number]) given intravenously. Interpretation Summary The left ventricle [...] On Sun09/29/20 at 1400, For 1 dose, PRC- [id number] sodium chloride (PF) 0.9% PF flush 10 mL Given 09/29/2020 1:44 PM CDT 10 mLs 10 mL, Intravenous, ONCE, On Sun09/29/20 at 1400, For 1 dose documented in this encounter Care Teams Glaze Maker Relationship Specialty Start Date End Date No Ref-Primary, Physician PCP - General 07/15/20 Lino Radford DO Assigned PCP 08/26/20 [address] [place] [address] Wilian Turner MD Assigned Heart and Vascular 09/12/20 [address] [facility] Provider [address] [place] [address] documented as of this encounter
--- OUTSIDE RECORDS SUMMARY | 2022-02-03 09:21 | XMS_ITS | Encounter Summary ---
:1950 Author Organization [place] Address [address] [place] [address] Care Team Providers Name Role Phone No Ref-Primary, Physician Primary Care Provider [phone] Lino Radford DO Unavailable Wilian Castañeda MD Unavailable Reason for Visit Reason Comments Hematuria Encounter Details Date Type Department Care Team Description 11/04/2020 Emergency [facility] Silvio Garcia, [facility] [address] [place] [address] Urinary tract [facility] Emergency Dep Lowell Alberto APRN [facility] [address] [place], [place] [id number] infection [address] [place] [address] Social History Tobacco Use Types Packs/Day Years [...] through Care Everywhere. Bladder Infection, Male (Adult) (Czech)documented in this encounter Medications at Time of [...] the hematuria began on 10/27/20 after his classifier operator prescribed him Eliquis and Coreg for an upcoming cardioversion at the end of October. He reports that the blood in his urine has increased everyday since starting his medications. He notes that his classifier operator's nurse was concerned for a UTI, so he presented to a [facility] that directed him here [...] contact Emergency Department Course Laboratory: UA: Color: Collingsworth(A), Appearance: Cloudy(A), Blood: Large(A), Protein Albumin: 70(A), [...] checked for urinary tract infection by his classifier operator's nurse. His examination shows no physical findings. [...] to me. Lowell Ramos APRN CNP 11/04/20 7346 documented in this encounter Plan of Treatment [...] (ABNORMAL) Urine Culture (11/04/2020 3:56 PM CDT) [facility] Method Time Signature Culture >100,000 CFU/mL [...] Code Phon e Number [facility] [place] [address] Diag. Lab [address] [facility], Room D297 [facility] ID[facility]ORAT[facility] Infectious [place], [place] [phone] Diseases Diagnostic [phone], [facility] Lab (IDDL) [address] [facility], Room D297 (ABNORMAL) UA with Microscopic reflex to Culture (11/04/2020 3:56 PM CDT) [facility] Method Time Signature Color Urine Coll[place]worth (A) Colorless, 11/04/2020 [facility] Straw, 4:37 PM CDT Light Yellow, Yellow Appearance Urine Cloudy (A) Clear 11/04/2020 [facility] RY 4:37 PM CDT Glucose Urine Negative Negative 11/04/2020 [facility] mg/dL 4:37 PM CDT Bilirubin Urine Negative Negative 11/04/2020 [facility] 4:37 PM CDT Ketones Urine Negative Negative 11/04/2020 [facility] mg/dL 4:37 PM CDT Specific [place] 1.019 1.003 - 11/04/2020 [facility] LABORATOR Y [...] Address City/State/ZIP Code [place] [address] Care Lab [address] [...] Infection documented in this encounter Care Teams Leg Assembler Relationship Specialty Start Date End Date No Ref-Primary, Physician PCP - General 07/15/20 Lino Radford DO Assigned PCP 08/26/20 [address] [place] [address] Wilian Castañeda MD Assigned Heart and Vascular 09/12/20 [address] [facility] Provider [address] [place] [address] documented as of this encounter
--- OUTSIDE RECORDS SUMMARY | 2022-02-03 09:21 | XMS_ITS | Encounter Summary ---
:1950 Author Organization [place] Address [address] [place] [address]. [place] [address] Care Team Providers Name Role Phone No Ref-Primary, Physician Primary Care Provider Savanah Gaming PA-C Unavailable [phone] Encounter Details Date Type Department Care Team Description 08/05/2020 Orders Only [facility] Francisco Peguero for screening Clinic Antonette Morrow MD for other viral [address] [place] [address] N [place] diseases [place], [place] GASTROINTESTINAL [address] [phone] [place] [address] Social History Tobacco Use Types [...] Component Value Ref Test Analysis Performed At [facility] Method Time Signature COVID-19 Nasopharyngeal 08/14/2020 [place] Virus PCR to 8:51 AM CDT [facility] Source COVID-19 Test received-See 08/14/2020 INFECTIOUS Virus PCR to reflex to IDDL 1:05 PM CDT [place] [facility] [place] - test SARS CoV2 DIAGNOSTIC Result (COVID-19) Virus LABORATORY, RT-PCR [facility] Specimen (Source) Anatomical Collection Method Collection Time Re ceived Time Location / / Volume Laterality Specimen from 08/14/2020 8:50 08/14/2020 nasopharyngeal AM CDT 8:51 AM CDT structure (specimen) Francisco Peguero MD LAB - MICRO GENERAL ORDERABL ES Performing Organization Address City/State/ZIP Code Phon e Number INFECTIOUS DISEASES [address] [place] [address] DIAGNOSTIC LABORATORY, [facility] [address] [place] [id number] [facility] [phone] documented in this encounter Visit Diagnoses Diagnosis Encounter for screening for other viral diseases documented in this encounter Care Teams Yard Person Relationship Specialty Start Date End Date No Ref-Primary, Physician PCP - General 07/15/20 Savanah Gaming PA-C Assigned PCP 06/24/20 08/25/20 [address] [place] [address] documented as of this encounter
--- OUTSIDE RECORDS SUMMARY | 2022-02-03 09:21 | XMS_ITS | Encounter Summary ---
:1950 Author Organization [place] Address [address] [place] [address] Care Team Providers Name Role Phone No Ref-Primary, Physician Primary Care Provider [phone] Savanah Gaming PA-C Unavailable [phone] Encounter Details Date Type Department Care Team [...] on filedocumented in this encounter Care Teams Contracts Representative Relationship Specialty Start Date End Date No Ref-Primary, Physician PCP - General 07/15/20 Savanah Gaming PA-C Assigned PCP 06/24/20 08/25/20 [address] [place] [address] documented as of this encounter
--- OUTSIDE RECORDS SUMMARY | 2022-02-03 09:21 | XMS_ITS | Encounter Summary ---
:1950 Author Organization [place] Address [facility] [place] [address] Care Team Providers Name Role Phone No Ref-Primary, Physician Primary Care Provider [phone] Lino Radford DO Unavailable Wilian Castañeda MD Unavailable Reason for Referral (Routine) - Closed Specialty Diagnoses / Procedures Referred By Contact Refer red To Contact Diagnoses Chronic atrial fibrillation (H) Wilian Castañeda MD Procedures Cardioversion [address] [place] [address] Referral ID Status Reason Start Date Expiration Date Visits Requ ested Visits Authorized [id number] Closed 10/27/2020 10/27/2021 1 1 Reason for Visit Reason Comments FU Cardiac testing echo, ZPatch (Routine) - Closed Specialty Diagnoses / Procedures Referred By Contact Refer red To Contact Diagnoses Chronic atrial fibrillation (H) Wilian Castañeda MD [address] [place] [address] Referral ID Status Reason Start Date Expiration Date Visits Requ ested Visits Authorized [id number] Closed 09/01/2020 09/01/2021 1 1 Encounter Details Date Type Department Care Team Description 10/27/2020 Office Visit [facility] Wilian Castañeda Chronic atrial Heart Clinic Lizzy Mcintosh MD fibrillation (H) [address] [facility] [address] [place] [address] [place] [address] [phone] Social History Tobacco Use Types Packs/Day Years [...] for evaluation. ?? Patient recently moved from [place] to [place]. He was told in the past that he had A. fib, however he denies actually having any physical back in [place]. Here [place], he establish care with [...] I favor at least an attempt of roman catholic of normal rhythm. As he is intolerant [...] Other Topics Concern ??? Parent/sibling w/ CABG, VA or angioplasty before 65F 55M? Not Asked [...] Gatherings with Friends and Family: ??? Attends Temple Services: ??? Active Member of Clubs or [...] [address] [place] [address] documented in this encounter Plan of Treatment Scheduled Orders Name Type Priority Associated Diagnoses Order S chedule Cardioversion Electrophysiology Routine Chronic atrial Expecte d: 11/27/2020 fibrillation (H) (Approximat e), Expires: 2021 documented as of this encounter Visit Diagnoses Diagnosis Chronic atrial fibrillation (H) Atrial fibrillation documented in this encounter Care Teams Director Internal Audit Relationship Specialty Start Date End Date No Ref-Primary, Physician PCP - General 07/15/20 Lino Radford DO Assigned PCP 08/26/20 [address] [place] [address] Wilian Castañeda MD Assigned Heart and Vascular 09/12/20 [address] Provider [address] [place] [address] documented as of this encounter
--- OUTSIDE RECORDS SUMMARY | 2022-02-03 09:21 | XMS_ITS | Encounter Summary ---
:1950 Author Organization [place] Address [address] [place] [address] Care Team Providers Name Role Phone No Ref-Primary, Physician Primary Care Provider [phone] Lino Radford DO Unavailable Wilian Castañeda MD Unavailable Reason for Visit Reason Onset Date Comments Orders 10/27/2020 Encounter Details Date Type Department Care Team Description 10/27/2020 Telephone [facility] Clinic Rufus Fisher RN Orders [place] [address] [facility] [address] [place] [address] Social History Tobacco Use Types [...] fibrillation documented in this encounter Care Teams Tray Setter Relationship Specialty Start Date End Date No Ref-Primary, Physician PCP - General 07/15/20 Lino Radford DO Assigned PCP 08/26/20 [address] [place] [address] Wilian Castañeda MD Assigned Heart and Vascular 09/12/20 [address] [place] Provider [address] [place] [address] documented as of this encounter
--- OUTSIDE RECORDS SUMMARY | 2022-02-03 09:21 | XMS_ITS | Encounter Summary ---
:1950 Author Organization [place] Address [facility] [place] [address] Care Team Providers Name Role Phone No Ref-Primary, Physician Primary Care Provider [phone] Savanah Gaming PA-C Unavailable Reason for Visit Reason Comments UTI Encounter Details Date Type Department Care Team Description 08/09/2020 Office Visit [facility] Earnestine Glaser, Dysuria (Primary Dx); Urgent Care Irma rosenberg MD Nonspecific finding on examination of ur ine; [address] Fatigue, unspecified type; [place], [place] [address] Atrial fibrillation, unspecified type (H ) [address] [place], [place] [phone] [address] Social History Tobacco Use Types Packs/Day [...] - *UA reflex to Microscopic and Culture ([facility] (except [employer] [facility]) - Urine Microscopic - Urine Culture Aerobic [...] was completed, in part, with Dragon voice Earnesitne Glaser MD on 08/09/2020 at 11:43 AM [...] - 144 08/09/2020 [facility] mmol/L 2:24 PM [facility] Potassium 4.2 3.4 - 5.3 08/09/2020 [facility] mmol/L 2:24 PM [facility] Chloride 108 94 - 109 08/09/2020 [facility] mmol/L 2:24 PM [facility] Carbon Dioxide 22 20 - 32 08/09/2020 [facility] mmol/L 2:26 PM [facility] Anion Gap 9 3 - 14 08/09/2020 [place] mmol/L 2:26 PM [facility] Glucose 125 (H) 70 - 99 08/09/2020 [facility] mg/dL 2:26 PM [facility] Urea Nitrogen 24 7 - 30 08/09/2020 [facility] mg/dL 2:26 PM [facility] Creatinine 0.87 0.66 - 08/09/2020 [facility] 1.25 mg/dL 2:26 PM [facility] GFR Estimate 87 >60 08/09/2020 [facility] mL/min/{1. 2:26 PM [facility] 73_m2} HOSPITAL Comment: Non GFR Calc Starting 03/19/2018, serum creatinine ba sed estimated GFR (eGFR) will be calculated using the Chronic Kidney Dise [facility] Epidemiology Collaboration (CKD-EPI) equation. GFR Estimate If >90 >60 mL/min/{1.73_m2} 08/09/2020 2: 26 PM [facility] Comment: GFR Calc Starting 03/19/2018, serum creatinine ba sed estimated GFR (eGFR) will be calculated using the Chronic Kidney Dise [facility] Epidemiology Collaboration (CKD-EPI) equation. Calcium 9.5 8.5 - 10.1 08/09/2020 2:26 PM [facility] mg/dL [facility] Bilirubin Total 1.8 (H) 0.2 - 1.3 mg/dL 08/09/2020 2:30 PM [facility] Albumin 3.3 (L) 3.4 - 5.0 g/dL 08/09/2020 2:30 PM [facility] Protein Total 7.3 6.8 - 8.8 g/dL 08/09/2020 2:30 PM [facility] Alkaline Phosphatase 90 40 - 150 U/L 08/09/2020 2:30 PM [facility] ALT 22 0 - 70 U/L 08/09/2020 2:30 PM [facility] AST 11 0 - 45 U/L 08/09/2020 2:30 PM [facility] Specimen Anatomical Collection Method Collection Time Receive d Time (Source) Location / / Volume Laterality Blood 08/09/2020 12:20 08/09/2020 PM CDT 12:21 PM CDT Earnestine Glaser MD LAB - BLOOD ORDERABLES Performing Organization Address City/State/ZIP Code Phon e Number [facility] [address] [place], [place] [address] [facility] [address] [phone] CBC with platelets and differential (08/09/2020 12:20 PM CDT) [facility] Method Time Signature WBC 10.7 4.0 - 08/09/2020 [facility] 11.0 2:18 PM CDT CL[facility] 10e9/L [place] RBC Count 5.53 4.4 - 5.9 08/09/2020 [facility] 10e12/L 2:18 PM [facility] [place] Hemoglobin 16.8 13.3 - 08/09/2020 [facility] 17.7 g/dL 2:18 PM [facility] [place] Hematocrit 50.8 40.0 - 08/09/2020 [facility] 53.0 % 2:18 PM [facility] [place] MCV 92 78 - 100 08/09/2020 [facility] fl 2:18 PM [facility] [place] MCH 30.4 26.5 - 08/09/2020 [facility] 33.0 pg 2:18 PM [facility] [place] MCHC 33.1 31.5 - 08/09/2020 [facility] 36.5 g/dL 2:18 PM [facility] [place] RDW 14.4 10.0 - 08/09/2020 [facility] 15.0 % 2:18 PM [facility] [place] Platelet Count 196 150 - 450 08/09/2020 [facility] 10e9/L 2:18 PM [facility] [place] % Neutrophils 72.2 % 08/09/2020 [facility] 2:18 PM [facility] [place] % Lymphocytes 16.6 % 08/09/2020 [facility] 2:18 PM [facility] [place] % Monocytes 9.7 % 08/09/2020 [facility] 2:18 PM [facility] [place] % Eosinophils 1.3 % 08/09/2020 [place] 2:18 PM CDT [facility] % Basophils 0.2 % 08/09/2020 [place] 2:18 PM CDT [facility] Absolute 7.7 1.6 - 8.3 08/09/2020 [place] Neutrophil 10e9/L 2:18 PM CDT [facility] Absolute 1.8 0.8 - 5.3 08/09/2020 [place] Lymphocytes 10e9/L 2:18 PM CDT [facility] Absolute 1.0 0.0 - 1.3 08/09/2020 [place] Monocytes 10e9/L 2:18 PM CDT [facility] Absolute 0.1 0.0 - 0.7 08/09/2020 [place] Eosinophils 10e9/L 2:18 PM CDT [facility] Absolute 0.0 0.0 - 0.2 08/09/2020 [place] Basophils 10e9/L 2:18 PM CDT [facility] Diff Method Automated 08/09/2020 [place] Method 2:18 PM CDT [facility] Specimen Anatomical Collection Method Collection Time Receive d Time (Source) Location / / Volume Laterality Blood 08/09/2020 12:20 08/09/2020 PM CDT 12:21 PM CDT Earnestine Glaser MD LAB - BLOOD ORDERABLES Performing Organization Address City/State/ZIP Code Phon e Number [facility] [id number] [place] [address] EKG 12-lead complete w/read - Clinics (08/09/2020 12:01 PM CDT) Narrative This result has an attachment that is no t available. Earnestine Glaser MD ECG ORDERABLES Urine Culture Aerobic Bacterial (08/09/2020 10:54 AM CDT) Component Value Ref Test Analysis Performed At [facility] gist Range Method Time Signature Specimen Midstream Urine INFECTIOUS Description DISEASES DIAGNOSTIC LABORATORY, [facility] Culture Micro 50,000 to 100,000 colonies/mL 2020 INFECTIOUS mixed urogenital cristian 10:03 PM DISEASE S Susceptibility testing not routinely done CDT DIAGNOSTIC LAB[facility], [facility] Specimen (Source) Anatomical Collection Method Collection Time Re ceived Time Location / / Volume Laterality Examination of 08/09/2020 10:54 midstream urine AM CDT 11:28 AM CDT specimen (procedure) Earnestine Glaser MD LAB - MICRO GENERAL ORDERABL ES Performing Organization Address City/State/ZIP Code Phon e Number [facility] [address] [place] [address] LABORATORY, [facility] (ABNORMAL) Urine Microscopic (08/09/2020 10:54 AM CDT) Patholo gist Method Time Signature WBC Urine >100 (A) OTO5^0 - 08/09/2020 [place] 5 /HPF 11:15 AM CDT [facility] RBC Urine 2-5 (A) OTO2^O - 08/09/2020 [place] 2 /HPF 11:15 AM CDT [facility] Squamous Few FEW^Few 08/09/2020 [place] Epithelial /LPF 11:15 AM CDT CLINICS /LPF Urine [place] Bacteria Urine Moderate (A) NEG^Negat 08/09/2020 [place] husam /HPF 11:15 AM CDT [facility] Specimen Anatomical Collection Method Collection Time Receive d Time (Source) Location / / Volume Laterality 08/09/2020 10:54 08/09/2020 AM CDT 10:55 AM CDT Earnestine Glaesr MD LAB - URINE ORDERABLES Performing Organization Address City/[facility] Code Phon e Number [facility] [address] [place] [address] (ABNORMAL) *UA reflex to Microscopic and Culture ([facility] (except [facility] and[facility]) (08/09/2020 10:54 AM CDT) [facility] [employer] Method Time Signature Color Urine Yellow 08/09/2020 [place] 11:15 AM CDT [facility] Appearance Clear 08/09/2020 [place] Urine 11:15 AM CDT [facility] Glucose Urine Negative NEG^Negat 08/09/2020 [place] husam mg/dL 11:15 AM CDT [facility] Bilirubin Moderate (A) NEG^Negat 08/09/2020 [place] Urine husam 11:15 AM CDT [facility] Comment: This is an unconfirmed screenin g test result. A positive result may be false. Ketones Urine >=80 (A) NEG^Negative mg/dL 08/09/2020 11:15 [place] AM CDT [facility] [place] Specific Vantage >1.030 1.003 - 1.035 08/09/2020 11:15 [facility] Urine AM CDT [facility] [place] Blood Urine Large (A) NEG^Negative 08/09/2020 11:15 [place] AM CDT [facility] [place] pH Urine 5.5 5.0 - 7.0 pH 08/09/2020 11:15 [place] AM CDT [facility] [place] Protein Albumin >=300 (A) NEG^Negative mg/dL 08/09/2020 11:1 5 [place] Urine AM CDT [facility] [place] Urobilinogen Urine 1.0 0.2 - 1.0 EU/dL 08/09/2020 11:1 5 [place] AM CDT [facility] [place] Nitrite Urine Negative NEG^Negative 08/09/2020 11:15 [facility] AM CDT [facility] [place] Leukocyte Esterase Large (A) NEG^Negative 08/09/2020 11:15 [facility] Urine AM CDT [facility] [place] Source Midstream Urine 08/09/2020 10:55 [facility] W AM CDT [facility] [place] Specimen (Source) Anatomical Collection Method Collection Time Re ceived Time Location / / Volume Laterality Examination of 08/09/2020 10:54 midstream urine AM CDT 10:55 AM CDT specimen (procedure) Earnestine Glaser MD LAB - URINE ORDERABLES Performing Organization Address City/State/ZIP Code Phon e Number [facility] [address] [facility] [place] [address] documented in this encounter Visit Diagnoses Diagnosis Dysuria - Primary Nonspecific finding on examination of ur ine Other nonspecific finding on examination of urine Fatigue, unspecified type Atrial fibrillation, unspecified type (H ) documented in this encounter Care Teams Promotions Executive Relationship Specialty Start Date End Date No Ref-Primary, Physician PCP - General 07/15/20 Savanah Gaming PA-C Assigned PCP 06/24/20 08/25/20 [address] [place] [address] documented as of this encounter
--- OUTSIDE RECORDS SUMMARY | 2022-02-03 09:21 | XMS_ITS | Encounter Summary ---
:1950 Author Organization [place] Address [facility] [place] [address] Care Team Providers Name Role Phone No Ref-Primary, Physician Primary Care Provider [phone] Lino Radford DO Unavailable Wilian Castañeda MD Unavailable Reason for Referral CV Testing (Routine) - Closed Specialty Diagnoses / Procedures Referred By Contact Refer red To Contact Cardiology Diagnoses Chronic atrial fibrillation (H) Wilian Castañeda Sh Cv Cardiac Services Procedures Leadless machine guide base winder 3 to 7 Days ZZHC EXT ECG > 48HR TO 21 DAY RCRD W/CONECT INTL RCRD ZZC EXT ECG > 48HR TO 21 DAY REVIEW AND INTERPRETATN VA EXT ECG > 48HR TO 21 DAY RCRD W/CONECT INTL RCRD [address] VA EXT ECG > 48HR TO 21 DAY REVIEW AND INTERPRETATN HC EXT ECG > 48HR TO 21 DAY RCRD W/CONECT INTL RCRD [address] [place] [address] [place] [address] [place] [phone] Referral ID Status Reason Start Date Expiration Date Visits Requ ested Visits Authorized [id number] Closed 09/01/2020 09/01/2021 1 1 Reason for Visit Auth/Cert Specialty Diagnoses / Procedures Referred By Contact Refer red To Contact Cardiology Cv Cardiac Se rvices [address] [place] [phone] Phone: Referral ID Status Reason Start Date Expiration Date Visits Requ ested Visits Authorized [id number] 1 1 Encounter Details Date Type Department Care Team Description 09/29/2020 Hospital Encounter [facility] MD Arnaldo fibrillation (H) Heart Care [address] [facility] 6[address] [facility] [address] [facility] [place] [address] [address] [place] (Work) [phone] Social History [...] Priority Date/Time Associated Diagnosis Comme nts LEADLESS BURNING MACHINE OPERATOR Routine 09/29/2020 1:51 Chronic atrial Re sults for this APPLICATION AND PM CDT fibrillation (H) procedur e are in INTERPRETATION 3 TO 7 the re DAY section. documented in this encounter Results LEADLESS BURNING MACHINE OPERATOR APPLICATION AND INTERPRETATION 3 TO 7 DAY [...] fibrillation documented in this encounter Care Teams Lecturer Of Portuguese Relationship Specialty Start Date End Date No Ref-Primary, Physician PCP - General 07/15/20 Lino Radford DO Assigned PCP 08/26/20 [address] [place] [address] Wilian Castañeda MD Assigned Heart and Vascular 09/12/20 [address] [facility] Provider [address] [place] [address] documented as of this encounter
--- OUTSIDE RECORDS SUMMARY | 2022-02-03 09:21 | XMS_ITS | Encounter Summary ---
:1950 Author Organization [place] Address [address] [place] [address] Care Team Providers Name Role Phone No Ref-Primary, Physician Primary Care Provider [phone] Lino Radford DO Unavailable Wilian Castañeda MD Unavailable Reason for Visit Reason Onset Date Comments Clinic Care Coordination - Follow-up 10/28/2020 Encounter Details Date Type Department Care Team Description 10/28/2020 Telephone [facility] Jerri Rincon, MICHAEL Clinic Care Coordination Clinic [place] - Follow-up [address] [facility] [address] [place] [address] Social History Tobacco Use Types [...] on filedocumented in this encounter Care Teams Roving Tester Laboratory Relationship Specialty Start Date End Date No Ref-Primary, Physician PCP - General 07/15/20 Lino Radford DO Assigned PCP 08/26/20 [address] [place] [address] Wilian Castañeda MD Assigned Heart and Vascular 09/12/20 [address] [place] Provider [address] [place] [address] documented as of this encounter
--- OUTSIDE RECORDS SUMMARY | 2022-02-03 09:21 | XMS_ITS | Encounter Summary ---
:1950 Author Organization [place] Address [address] [place] [address] Care Team Providers Name Role Phone No Ref-Primary, Physician Primary Care Provider [phone] Lino aRdford DO Unavailable Reason for Visit Reason Onset Date Comments Appointment 08/31/2020 Dr Castañeda 09/01 Encounter Details Date Type Department Care Team Description 08/31/2020 Telephone [facility] Heart Teresa Mesa A ppointment (Dr [facility] Lizzy RN 09/01) [address] [facility] [address] [place] [address] Social History Tobacco Use Types Packs/Day Years [...] who stated there are no records from [place] as he did not seek medical care regarding his heart arrhythmia there. Alan 820 am Telephone Encounter - Teresa Mesa RN - 08/31/2020 1:06 PM CDT LM for pt to call back to see if he has any records in [place] that may be wanted for OV with Dr Castañeda. JNelsonRN documented in this encounter Plan of Treatment Not on filedocumented as of this encounter Visit Diagnoses Not on filedocumented in this encounter Care Teams Roll Grinder Operator Relationship Specialty Start Date End Date No Ref-Primary, Physician PCP - General 07/15/20 Lino Radford DO Assigned PCP 08/26/20 [address] [place] [address] documented as of this encounter
--- OUTSIDE RECORDS SUMMARY | 2022-02-03 09:21 | XMS_ITS | Encounter Summary ---
:1950 Author Organization [place] Address [address] [place] [address] Care Team Providers Name Role Phone No Ref-Primary, Physician Primary Care Provider [phone] Savanah Gaming PA-C Unavailable [phone] Encounter Details Date Type Department Care Team [...] on filedocumented in this encounter Care Teams Pulp Mill Operator Relationship Specialty Start Date End Date No Ref-Primary, Physician PCP - General 07/15/20 Savanah Gaming PA-C Assigned PCP 06/24/20 08/25/20 [address] [place] [address] documented as of this encounter
--- OUTSIDE RECORDS SUMMARY | 2022-02-03 09:21 | XMS_ITS | Encounter Summary ---
:1950 Author Organization [place] Address [address] [place] [address] Care Team Providers Name Role Phone No Ref-Primary, Physician Primary Care Provider [phone] Lino Radford DO Unavailable Encounter Details [...] on filedocumented in this encounter Care Teams Stone Finisher Relationship Specialty Start Date End Date No Ref-Primary, Physician PCP - General 07/15/20 Lino Radford DO Assigned PCP 08/26/20 [address] [place] [address] documented as of this encounter
--- OUTSIDE RECORDS SUMMARY | 2022-02-03 09:21 | XMS_ITS | Encounter Summary ---
:1950 Author Organization [place] Address Critical access hospital0 [facility] [place] [address] Care Team Providers Name Role Phone No Ref-Primary, Physician Primary Care Provider [phone] Savanah Gaming PA-C Unavailable [phone] Reason for Visit Auth/Cert Specialty Diagnoses / Procedures Referred By Contact Refer red To Contact Gastroenterology Diagnoses Hx of colonic polyps Hx of colonic polyps [Z86.010] Endoscopy Procedures HC COLONOSCOPY W/WO BRUSH/WASH COLONOSCOPY [address] [place] [address] Phone: Fax: Referral ID Status Reason Start Date Expiration Date Visits Requ ested Visits Authorized [id number] 1 1 Encounter Details Date Type Department Care Team Description 08/18/[address] [facility] Hallie Rivera, COLO NOSCOPY with Endoscopy Evy HOOVER polypectomies USING hot [address] [place], [place] GASTROINTESTINAL [address] [address] [phone] [place], [place] [id number] Surgery Details Date/Time Status Location OR Service [...] through Care Everywhere. Diverticulosis and Diverticulitis, Understanding (Malian)Diet, High-Fiber (Malian)Colon and Rectal Polyps, Understanding (Malian)documented in this encounter Medications at Time of [...] Component Value Ref Test Analysis Performed At [facility] Range Method Time Signature Copath Report Patient Name: MARLON BENTON MR#: [id number] Specimen #: [id number] Collected: 08/18/2020 Received: 08/18/2020 Reported: 08/19/2020 09:46 [...] of this testing was completed at the [facility], with the professional compo nent performed at the [facility], [address] [place] [address] [phone] ([phone]) CPT Codes: A: 71764-HC9 B: 52947-YL8 COLLECTION SITE: Client: [facility] Location: [facility] (R) Specimen (Source) Anatomical Collection Method Collection Time Re ceived Time Location / / Volume Laterality Polyp LARGE INTESTINE 08/18/2020 1:23 PM PART / Unknown CDT Polyp LARGE INTESTINE 08/18/2020 1:32 PM (morphologic PART / Unknown CDT abnormality) Hallie OROZCO - PATRIC Performing Organization Address City/State/ZIP Code Phon e Number [facility] COLONOSCOPY (08/18/2020 1:07 PM CDT) [facility] Method Time Signature COLONOSCOPY [facility] RAD IOLOGY RESULTS Patient Name: Marlon Benton ?Procedure Date: 08/18 1:07 PM ? Accou nt Number: [id number] Date of : 1950 ?Admit Type: Out [...] continuously. The ?Olympus Adult Colonoscope, Model # CF-TP756F, ?Endora # [id number], SN # [id number] was introduced through ?the anus and advanced [...] Procedure Code(s): ? --- Professional --- ? 75151, Colonoscopy, flexible; with removal of tumor (s), polyp(s), or ? other lesion(s) by snare technique Diagnosis Code(s): ? --- Professional --- ? K63.5, Polyp of colon CPT copyright 2019 [employer]. All rights reserved. The codes documented in this report are prelimin tarah and upon professor of german review may be revised to meet current compliance requirements. Electronically signed by Hallie Rivera MD Hallie Rivera MD 08/18/2020 1:41:27 PM I was physically present for the entire viewing portion of t he exam. Hallie Rivera MD Number of Addenda: 0 Note Initiated On: 08/18/2020 1:07 PM MRN: ?[id number] Procedure Date: ? 08/18/2020 1:07:30 PM Scope [...] For ordered IV doses 0.1-2mg give I RIBBON CLEANER. Give each 0.4mg over 15 seconds in [...]
Post-procedure documented in this encounter Care Teams Carcass Trimmer Relationship Specialty Start Date End Date No Ref-Primary, Physician PCP - General 07/15/20 Savanah Gaming PA-C Assigned PCP 06/24/20 08/25/20 [address] [place] [address] documented as of this encounter
--- OUTSIDE RECORDS SUMMARY | 2022-02-03 09:21 | XMS_ITS | Encounter Summary ---
:1950 Author Organization [employer] Address [address] [place] [address] Care Team Providers Name Role Phone No Ref-Primary, Physician Primary Care Provider [phone] Savanah Gaming PA-C Unavailable [phone] Encounter Details Date Type Department Care Team Description 08/23/2020 Telephone [facility] No Ref-Primary, [place] Physician [address] [place] [address] Social History Tobacco Use [...] CDT Patient calls, Had EKG done at [facility] 08/09/2020, per office notes Discussed with [...] on filedocumented in this encounter Care Teams Social Security Assessor Relationship Specialty Start Date End Date No Ref-Primary, Physician PCP - General 07/15/20 Savanah Gaming PA-C Assigned PCP 06/24/20 08/25/20 [address] [place] [address] documented as of this encounter
--- OUTSIDE RECORDS SUMMARY | 2022-02-03 09:21 | XMS_ITS | Encounter Summary ---
:1950 Author Organization [place] Address [facility] [place] [place] [address] Care Team Providers Name Role Phone No Ref-Primary, Physician Primary Care Provider Lino Radford DO Unavailable Wilian Castañeda MD Unavailable Reason for Visit Reason Onset Date Comments Clinic Care Coordination - Follow-up 09/23/2020 Encounter Details Date Type Department Care Team Description 09/23/2020 Telephone [facility] Jerri Rincon, MICHAEL Clinic Care Coordination Clinic [place] - Follow-up [address] [facility] [address] [place] [address] Social History Tobacco Use Types [...] up w PCP already discussed w pt. CARLOSerroRN 1120 am Telephone Encounter - Jerri Rincon [...] on filedocumented in this encounter Care Teams Ordering Box Operator Relationship Specialty Start Date End Date No Ref-Primary, Physician PCP - General 07/15/20 Lino Radford DO Assigned PCP 08/26/20 [address] [place] [address] Wilian Castañeda MD Assigned Heart and Vascular 09/12/20 [address] [facility] Provider [address] [place] [address] documented as of this encounter
--- OUTSIDE RECORDS SUMMARY | 2022-02-03 09:21 | XMS_ITS | Encounter Summary ---
:1950 Author Organization [place] Address [facility]0 [facility] [address] Care Team Providers Name Role Phone No Ref-Primary, Physician Primary Care Provider [phone] Savanah Gaming PA-C Unavailable [phone] Encounter Details Date Type Department Care Team Description 08/14/2020 Hospital Encounter [facility] Francisco Peguero for [facility] Laboratory MD Odalys screening for other [address] [place] viral diseases [place], [place] GASTROINTESTINA [address] L [phone] [place] [address] [id number] Social History Tobacco Use Types Packs/Day Years [...] (Coronavirus) by PCR (08/14/2020 8:50 AM CDT) [facility] Method Time Signature SARS-CoV-2 Nasopharyngeal 08/14/2020 [facility] OF Virus 4:36 PM CDT [facility] SARS-CoV-2 NEGATIVE 08/14/2020 [facility] PCR Result 4:36 PM T [facility] Comment: SARS-CoV2 (COVID-19) RNA not de tected, presumed negative. SARS-CoV-2 PCR Testing was performed using the Xpert Xpress SARS-CoV-2 Assay on the Venuetastic Gene-Xpert 08/14/2020 4:36 PM [facility] Comment Instrument Systems. Addition al information about this Emergency Use Authorization (EUA) [facility] assay can be found via the Lab Guide. [place] Comment: This test should be ordered for [...] COVID-19. This test was validated by the [facility]. This laboratory i [...] Organization Address City/State/ZIP Code Phon e Number [facility] [address] [place] [address] [facility] Asymptomatic COVID-19 Virus (Coronavirus) by PCR (08/14/2020 8:50 AM CDT) Component Value Ref Test Analysis Performed At [facility] Range Method Time Signature COVID-19 Nasopharyngeal 08/14/2020 [place] Virus PCR to 8:51 AM CDT [facility] U [facility] Source COVID-19 Test received-See 08/14/2020 INFECTIOUS Virus PCR to reflex to IDDL 1:05 PM CDT DISEASES U [facility] - test SARS CoV2 DIAGNOSTIC Result (COVID-19) Virus LABORATORY, RT-PCR [facility] Specimen (Source) Anatomical Collection Method Collection Time Re ceived Time Location / / Volume Laterality Specimen from 08/14/2020 8:50 08/14/2020 nasopharyngeal AM CDT 8:51 AM CDT structure (specimen) Francisco Peguero MD LAB - MICRO GENERAL ORDERABL ES Performing Organization Address City/State/ZIP Code Phon e Number INFECTIOUS DISEASES [address] [place] [address] DIAGNOSTIC LABORATORY, [facility] [address] [phone] documented in this encounter Visit Diagnoses Diagnosis Encounter for screening for other viral diseases documented in this encounter Care Teams Fireman Helper Relationship Specialty Start Date End Date No Ref-Primary, Physician PCP - General 07/15/20 Savanah Gaming PA-C Assigned PCP 06/24/20 08/25/20 [address] [place] [address] documented as of this encounter
--- OUTSIDE RECORDS SUMMARY | 2022-02-03 09:21 | XMS_ITS | Encounter Summary ---
:1950 Author Organization [place] Address [facility] [place] [address] Care Team Providers Name Role Phone No Ref-Primary, Physician Primary Care Provider [phone] Savanah Gaming PA-C Unavailable [phone] Reason for Referral (Routine) - Closed Specialty Diagnoses / Procedures Referred By Contact Refer red To Contact Gastroenterology Diagnoses History of colonic polyps Savanah Gaming PA-C [address] [place] [address] Referral ID Status Reason Start Date Expiration Date Visits Requ ested Visits Authorized [id number] Closed 07/19/2020 07/19/2021 1 1 Scheduling Instructions If EUS or ERCP is selected, it requires clinical review prior to scheduling. Reason for Visit Reason Comments Hospital F/U Encounter Details Date Type Department Care Team Description 07/19/2020 Office Visit [facility] Savanah Gaming e cystitis with hematuria (Primary Dx); Clinic Eladio Mendez PA-C Hyperkalemia; [address] [facility] [address] Morbid obesity (H); [place], [place] Rectal bleedi ng; [phone] Diverticulosis of large intestine withou t hemorrhage; [phone] Bladder diverti culitis; (Work) Nausea; History o [...] - *UA reflex to Microscopic and Culture ([facility] (except [place]ette Fernando and [place]) Hyperkalemia [...] not improving. Savanah Gaming PA-C [facility] Dinah Mason is a 70 year old who presents for the following health issues [facility] Hospital Follow-up Visit: Hospital/Fpc/IP Rehab Facility: [facility] Date of Admission: 07/15/20 Date of Discharge: 07/15/20 Reason(s) for Admission: Rectal bleeding, UTI, started on keflex. Was your hospitalization related to COVID-19? No Problems taking medications regularly: None Medication changes since discharge: None Problems adhering to non-medication therapy: None Summary of hospitalization: [facility] discharge summary reviewed Diagnostic Tests/Treatments reviewed. Follow [...] severe rectal bleeding, just moved here from [place], staying with his step son. Bleeding from rectum has not been better since been on the antibiotics but UTI has been better. History of UTIs. Potassium was 5.7. Does not take any medications daily. Colonoscopy [address] Kenny in [place], repeat due in 3 years. No gerd [...] a great week! Sincerely, Raquel Gaming PA-C [facility] [address] [place] [address] Clinic documented in this encounter Plan of [...] - 144 07/19/2020 [facility] mmol/L 8:44 PM [facility] Potassium 4.4 3.4 - 5.3 07/19/2020 [facility] mmol/L 8:44 PM [facility] Chloride 106 94 - 109 07/19/2020 [facility] mmol/L 8:44 PM [facility] Carbon Dioxide 28 20 - 32 07/19/2020 [facility] mmol/L 8:55 PM [facility] Anion Gap 5 3 - 14 07/19/2020 [facility] mmol/L 8:55 PM [facility] Glucose 120 (H) 70 - 99 07/19/2020 [place] mg/dL 8:55 PM [facility] Urea Nitrogen 31 (H) 7 - 30 07/19/2020 [facility] mg/dL 8:55 PM [facility] Creatinine 1.19 0.66 - 07/19/2020 [facility] 1.25 mg/dL 8:55 PM [facility] GFR Estimate 61 >60 07/19/2020 [place] mL/min/{1. 8:55 PM [facility] 73_m2} HOSPITAL Comment: Non GFR Calc Starting 03/19/2018, serum creatinine ba sed estimated GFR (eGFR) will be calculated using the Chronic Kidney Dise [facility] Epidemiology Collaboration (CKD-EPI) equation. GFR Estimate If 71 >60 mL/min/{1.73_m2} 07/19/2020 8: 55 PM [facility] Comment: GFR Calc Starting 03/19/2018, serum creatinine ba sed estimated GFR (eGFR) will be calculated using the Chronic Kidney Dise ase Epidemiology Collaboration (CKD-EPI) equation. Calcium 9.5 8.5 - 10.1 mg/dL 07/19/2020 8:55 PM CDT [facility] Specimen Anatomical Collection Method Collection Time Receive d Time (Source) Location / / Volume Laterality Blood 07/19/2020 2:44 PM 1 2:45 CDT PM CDT Savanah Gaming PA-C LAB - BLOOD ORDERABLE S Performing Organization Address City/[facility]/ZIP Code Phon e Number [facility] [address] [place] [address] [facility] [address] [place], [place] [address], [facility] [phone] [place] [address] [place] [address], [facility] [phone] HOSPITAL (ABNORMAL) Urine Microscopic (07/19/2020 2:43 PM CDT) [facility] gist Method Time Signature WBC Urine 5-10 (A) OTO5^0 - 5 07/19/2020 [facility] /HPF 3:05 PM CDT [facility] RBC Urine 25-50 (A) OTO2^O - 2 07/19/2020 [facility] /HPF 3:05 PM CDT [facility] Squamous Few FEW^Few 07/19/2020 [place] Epithelial /LPF /LPF 3:05 PM CDT [facility] hospital Bacteria Urine Few (A) NEG^Negati 07/19/2020 [place] ve /HPF 3:05 PM CDT [facility] Calcium Oxalate Few (A) NEG^Negati 07/19/2020 [place] ve /HPF 3:05 PM CDT [facility] Specimen Anatomical Collection Method Collection Time Receive d Time (Source) Location / / Volume Laterality 07/19/2020 2:43 PM 1 2:44 CDT PM CDT Savanah Gaming PA-C LAB - URINE ORDERABLE S Performing Organization Address City/[facility]/ZIP Code Phon e Number [facility] [address] [place] [address] (ABNORMAL) *UA reflex to Microscopic and Culture ([facility] and [facility] (except [place]) (07/19/2020 2:43 PM CDT) [facility] Method Time Signature Color Urine Yellow 07/19/2020 [facility] 2:57 PM CDT [facility] Appearance Slightly 07/19/2020 [place] Urine Cloudy 2:57 PM CDT [facility] Glucose Urine Negative NEG^Negat 07/19/2020 [place] husam mg/dL 2:57 PM CDT [facility] Bilirubin Moderate (A) NEG^Negat 07/19/2020 [facility] Urine husam 2:57 PM CDT [facility] Comment: This is an unconfirmed screenin g test result. A positive result may be false. Ketones Urine 40 (A) NEG^Negative mg/dL 07/19/2020 2:57 [facility] PM CDT [facility] Specific [place] 1.025 1.003 - 1.035 07/19/2020 2:57 [place] Urine PM CDT [facility] Blood Urine Large (A) NEG^Negative 07/19/2020 2:57 [facility] CDT [facility] pH Urine 5.5 5.0 - 7.0 pH 07/19/2020 2:57 [facility] CDT [facility] Protein Albumin 100 (A) NEG^Negative mg/dL 07/19/2020 2:57 [place] Urine PM CDT [facility] Urobilinogen Urine 1.0 0.2 - 1.0 EU/dL 07/19/2020 2:57 [facility] CDT [facility] Nitrite Urine Negative NEG^Negative 07/19/2020 2:57 [facility] PM CDT [facility] Leukocyte Esterase Small (A) NEG^Negative 07/19/2020 2:57 [facility] Urine PM CDT [facility] Source Midstream Urine 07/19/2020 2:45 [facility] CDT [facility] Specimen (Source) Anatomical Collection Method Collection Time Re ceived Time Location / / Volume Laterality Examination of 07/19/2020 2:43 07/19/2020 2:44 midstream urine PM CDT PM CDT specimen (procedure) Savanah Gaming PA-C LAB - URINE ORDERABLE S Performing Organization Address City/State/ZIP Code Phon e Number [facility] [address] [place] [address] documented in this encounter Visit Diagnoses Diagnosis Acute cystitis with hematuria - Primary Acute cystitis Hyperkalemia Hyperpotassemia Morbid obesity (H) Morbid obesity Rectal bleeding Hemorrhage of rectum and anus Diverticulosis of large intestine withou t hemorrhage Bladder diverticulitis Diverticulum of bladder Nausea Nausea alone History of colonic polyps Personal history of colonic polyps documented in this encounter Care Teams Principal Electrical Engineer Relationship Specialty Start Date End Date No Ref-Primary, Physician PCP - General 07/15/20 Savanah Gaming PA-C Assigned PCP 06/24/20 08/25/20 [address] [place] [address] documented as of this encounter
--- OUTSIDE RECORDS SUMMARY | 2022-02-03 09:21 | XMS_ITS | Encounter Summary ---
:1950 Author Organization [place] Address [facility] [place] [address] Care Team Providers Name Role Phone No Ref-Primary, Physician Primary Care Provider [phone] Lino Radford DO Unavailable Wilian Castañeda [...] on filedocumented in this encounter Care Teams Mop Handle Assembler Relationship Specialty Start Date End Date No Ref-Primary, Physician PCP - General 07/15/20 Lino Radford DO Assigned PCP 08/26/20 [address] [place] [address] Wilian Castañeda MD Assigned Heart and Vascular 09/12/20 [address] [facility] Provider [address]ERE[address] [id number] documented as of this encounter
--- OUTSIDE RECORDS SUMMARY | 2022-02-03 09:21 | XMS_ITS | Encounter Summary ---
:1950 Author Organization [place] Address [facility] [place] [address] Care Team Providers Name Role Phone No Ref-Primary, Physician Primary Care Provider [phone] Savanah Gaming PA-C Unavailable [phone] Reason for Visit Auth/Cert Specialty Diagnoses / Procedures Referred By Contact Refer red To Contact Gastroenterology Diagnoses Hx of colonic polyps Hx of colonic polyps [Z86.010] Rh Endoscopy Procedures HC COLONOSCOPY W/WO BRUSH/WASH COLONOSCOPY [address] [place] [address] Phone: Fax: Referral ID Status Reason Start Date Expiration Date Visits Requ ested Visits Authorized [id number] 1 1 Encounter Details Date Type Department Care Team Description 08/18/2020 Hospital Encounter [facility] Hallie Rivera , Endoscopy Evy [place] [address] [place] GASTR[place]TESTINAL [address] [address] [phone] [place], [place] [address] (Wo rk) Social History Tobacco Use Types [...] through Care Everywhere. Diverticulosis and Diverticulitis, Understanding (Niuean)Diet, High-Fiber (Niuean)Colon and Rectal Polyps, Understanding (Niuean)documented in this encounter Medications at Time of [...] Component Value Ref Test Analysis Performed At [facility] Method Time Signature Copath Report Patient Name: MARLON BENTON MR#: [id number] Specimen #: [id number] Collected: 08/18/2020 Received: 08/18/2020 Reported: 08/19/2020 09:46 [...] of this testing was completed at the [facility], with the professional compo nent performed at the [facility], [address] [place] [address] ??[phone] ([phone]) CPT Codes: A: 50266-HI7 B: 23925-VX2 COLLECTION SITE: Client: [facility] Location: [facility] (R) Specimen (Source) Anatomical Collection Method Collection Time Re ceived Time Location / / Volume Laterality Polyp LARGE INTESTINE 08/18/2020 1:23 PM PART / Unknown CDT Polyp LARGE INTESTINE 08/18/2020 1:32 PM (morphologic PART / Unknown CDT abnormality) [facility] Performing Organization Address City/State/ZIP Code Phon e Number [facility] COLONOSCOPY (08/18/2020 1:07 PM CDT) [facility] Method Time Signature COLONOSCOPY [facility] RAD IOLOGY RESULTS Patient Name: Marlon Benton ?Procedure Date: 08/18 1:07 PM ? Accou nt Number: [id number] Date of : 1950 ?Admit Type: Out patient Age: 70 ? Gender: Male Attending MD: Hallie gallardo MD ?? Total Sedation Time: 17_minutes continuous bedside 1:1 Instrument Name: 222 - Adult Colonoscope Procedure: ?Colonoscopy Indications: ?[place] colon cancer surveillance: Personal ?history of colonic po lyps Providers: ?Hallie Rivera MD ([facility]) Referring MD: ? Medicines: ?Midazolam 2 mg [...] continuously. The ?Olympus Adult Colonoscope, Model # CF-PX077W, ?[place] # 222, SN # [id number] was introduced through ?the anus and advanced [...] Procedure Code(s): ? --- Professional --- ? 89040, Colonoscopy, flexible; with removal of tumor (s), polyp(s), or ? other lesion(s) by snare technique Diagnosis Code(s): ? --- Professional --- ? K63.5, Polyp of colon CPT copyright 2019 [employer]. All rights reserved. The codes documented in this report are prelimin tarah and upon senior principal review may be revised to meet current compliance requirements. Electronically signed by Hallie Rivera MD Hallie Rivera MD 08/18/2020 1:41:27 PM I was physically present for the entire viewing portion of t he exam. Hallie Rivera MD Number of Addenda: 0 Note Initiated On: 08/18/2020 1:07 PM MRN: ?[id number] Procedure Date: ? 08/18/2020 1:07:30 PM Scope [...] For ordered IV doses 0.1-2mg give I SPICE MIXER. Give each 0.4mg over 15 seconds in [...]
Post-procedure documented in this encounter Care Teams Lighter Relationship Specialty Start Date End Date No Ref-Primary, Physician PCP - General 07/15/20 Savanah Gaming PA-C Assigned PCP 06/24/20 08/25/20 [address] [place] [address] documented as of this encounter
--- OUTSIDE RECORDS SUMMARY | 2022-02-03 09:22 | XMS_ITS | Encounter Summary ---
:1950 Author Care Team Providers Name Role Phone Estela Elaine MD Primary Care Provider [phone] Reason for Visit Lab/Nursing Visit Assessment and Plan 1. Retention of urine ? urinalysis, dipstick ? culture, urine Discussion Note: None recorded.Patient educational handouts: No information available. Plan of Care Reminders Provider Appointments Established 30 03/03/2022 1:00PM [facility] Urinalysis, Dipstick 11/28/2021 [facility] ? Culture, Urine 11/28/2021 [facility] Referral None [...] 1 TABLET (25 MG) BY MOUTH DAILY oxycodone 5 mg tablet ? sulfamethoxazole 800 mg-trimethoprim 160 mg tablet ? TAKE 1 TABLET BY MOUTH TWICE A DAY Medications Administered None recorded. Vitals None recorded. Results Lab Results Date Name Specimen Result Interpretation Description Value [place] Status Address ? 11/28/2021 Urinalysis, UR ? Color yellow yellow Final [place] Dip[facility]: [address] ? ? UR ABNORMAL Appearance turbid clear Final [place] [facility]: [address] [place] [address], [place] ? ? UR ? Glucose negative negative Final [place] [facility] mg/dL mg/dL [facility]: [address] [place] [address], [place] ? ? UR ? Bilirubin negative negative Final [place] [facility]: [address] [place] [address], [place] ? ? UR ? Ketones negative negative Final [place] [facility] mg/dL mg/dL [facility]: [address] [place] [address], [place] ? ? UR ? Sp. [place] <=1.005 1.010-1.0 Final [place] [facility] 25 [facility]: [address] [place] [address], [place] ? ? UR ? pH -[facility] 5.0 5.0-8.0 Final [place] [facility]: [address] [address], [place] ? ? UR ? Protein negative negative Final [place] [facility] mg/dL mg/dL [facility]: [address] [place] [address], [place] ? ? UR ? Urobilinogen 0.2 normal Final [place] [facility]: [address] [place] [address], [place] ? ? UR ABNORMAL Nitrites positive negative Final [place] [facility]: [address] [place] [address], [place] ? ? UR ABNORMAL Blood moderate negative Final [place] [facility]: [address] [place] [address], [place] ? ? UR ABNORMAL Leukocytes large negative Final [place] [facility]: [address] [place] [address], [place] ? ? UR ? Performed by aida T ? Final [place] [facility]: [address] [address], [place] ? ? UR ? Total Urine 20 /mL ? Final [place] Volume (mL) [facility]: [address] 11/28/2021 Culture, UR ABNORMAL Final Report microbiology ? Final [place] Urine results [facility]: [address] Allergies None recorded. Problems None recorded. Procedures [...] 11/28/2021 Retention of Urine Keagan Wallace MD: [address] [place] [phone], Ph. 11/02/2021 Prostate Nodule; Recurrent Urinary Tract Infection; Prostatitis Keagan Wallace MD: [address] [place] [phone], Ph. 11/02/2021 Raised Prostate Specific Antigen Keagan Wallace MD: [address] [place] [phone], Ph. History of Present Illness None recorded. Review of Systems None recorded. Physical Exam None recorded.
--- OUTSIDE RECORDS SUMMARY | 2022-02-03 09:22 | XMS_ITS ---
:1950 Author Care Team Providers Name Role Phone EILEEN ARECHIGA MD Primary Care Provider [phone] Allergies None recorded. Medications Name Status Start [...] BY MOUTH DAILY oxycodone 5 mg tablet Active ? Not availa ble sulfamethoxazole 800 mg-trimethoprim 160 mg tablet Active [...] -[facility]: [address] [address], [place] ? ? UR ABNORMA Appearance turbid clear Final [place] L -[facility]: [address] [address], [place] ? ? UR ? Glucose negative negative Final [place] -[facility] mg/dL mg/dL [facility]: [address] [facility] [address], [place] ? ? UR ? Bilirubin negative negative Final [place] -[facility]: [address] [address], [place] ? ? UR ? Ketones negative negative Final [place] -[facility] mg/dL mg/dL [facility]: [address] [place] [address], [place] ? ? UR ? Sp. Carrie <=1.005 1.010-1.0 Final [place] -[facility] 25 [facility]: [address] [place] [address] ? ? UR ? pH -[facility] 5.0 5.0-8.0 Final [place] [facility]: [address] [place] [address] ? ? UR ? Protein negative negative Final [place] -[facility] mg/dL mg/dL [facility]: [address] [place] [address] ? ? UR ? Urobilinogen 0.2 normal Final [place] -[facility]: [address] [place] [address] ? ? UR ABNORMA Nitrites positive negative Final [place] -[facility]: [address] [place] [address], [place] ? ? UR ABNORMA Blood moderate negative Final [place] L -[facility]: [address] [place] [address] ? ? UR ABNORMA Leukocytes large negative Final [place] -[facility]: [address] [place] [address], [place] ? ? UR ? Performed by aida Alvares ? Final [place] [facility]: [address] [place] [address] ? ? UR ? Total Urine 20 /mL ? Final [place] Volume (mL) [facility]: [address] [place] [address] 11/28/2021 Urinalysis, ABNORMA U-WBC 50 - 100 0 - 2 Final [place] Microscopic L [hpf] [hpf] [facility]: [address] [place] [address] ? ? ? U-RBC 0 - 2 [hpf] 0 - 2 Final [place] [hpf] [facility]: [address] [place] [address] ? ? ABNORMA Bacteria large [hpf] negative Final [place] L [hpf] [facility]: [address] [place] [address] ? ? ? Squamous Epi small /lpf negative, Fin al [place] small [facility] - /lpf [facility]: [address], [place] 11/28/2021 Culture, UR ABNORMA Final Report microbiolog ? Final [place] Urine L y results [facility]: [address], [place] 11/02/2021 Prostate Cnb ? Report Title comment ? Final [facility] PC-only # - Syste ms: [address], [place] ? ? ? Clinical comment ? Final [facility] Information Syste ms: [address] [place] ? ? ? Specimen comment ? Final [facility] Source Systems: [address] [place] ? ? ? Gross comment ? Final [facility] Description Syste ms: [address] [place] ? ? ? Diagnosis comment ? Final Diano n Systems: [address] [place] ? ? ? Codes comment ? Final [facility] Systems: [address] [place] ? ? ? Specimen comment ? Final [facility] Source Systems: [address] [place] ? ? ? Gross comment ? Final [facility] Description Syste ms: [address], [place] ? ? ? Diagnosis comment ? Final Diano n Systems: [address] [place] ? ? ? Codes comment ? Final [facility] Systems: [address] [place] ? ? ? Specimen comment ? Final [facility] Source Systems: [address] [place] ? ? ? Gross comment ? Final [facility] Description Syste ms: [address] [place] ? ? ? Diagnosis comment ? Final Diano n Systems: [address] [place] ? ? ? Codes [...] ? Codes comment ? Final [facility] Systems: [address], [place] ? ? ? Specimen [...] comment ? Final D[facility] Systems: [address], [place] ? ? ? Codes comment ? Final [facility] Systems: [address], [place] ? ? ? Specimen comment ? Final [facility] Source Systems: [address], [place] ? ? ? Gross comment ? Final [place] Description Syste ms: [address] ? ? ? Diagnosis comment ? Final [...] Dipstick -[facility]: [address] [place] [address] ? ? UR ? Appearance clear clear Final [place] -[facility]: [address] ? ? UR ? Glucose negative negative Final [place] -[facility] mg/dL mg/dL [facility]: [address] ? ? UR ? Bilirubin negative negative Final [place] -[facility]: [address] ? ? UR ABNORMA Ketones trace mg/dL negative Final [place] L -[facility] mg/dL [facility]: [address] ? ? UR ? Sp. Carrie 1.025 1.010-1.0 Final [place] -[facility] 25 [facility]: [address] ? ? UR ? pH -[facility] 5.5 5.0-8.0 Final [place] [facility]: [address] ? ? UR ABNORMA Protein 30 mg/dL negative Final [place] L -[facility] mg/dL [facility]: [address] ? ? UR ? Urobilinogen 0.2 normal Final [place] -[facility]: [address] ? ? UR ? Nitrites negative negative Final [place] -[facility]: [address] [place] [address], [place] ? ? UR ABNORMA Blood large negative Final [place] L -[facility]: [address] [place] [address], [place] ? ? UR ABNORMA Leukocytes large negative Final [place] L -[facility]: [address] [place] [address], [place] ? ? UR ? Performed by christie Fabian ? Final [place] [facility]: [address] [place] [address], [place] ? ? UR ? Total Urine 40 /mL ? Final [place] Volume (mL) [facility]: [address] [place] [address], [place] 10/14/2021 Urinalysis, ABNORMA U-WBC packed 0 - 2 Final [place] Microscopic L [hpf] [hpf] [facility]: [address] [place] [address], [place] ? ? ABNORMA U-RBC 2 - 5 [hpf] 0 - 2 Final [facility] [place] L [hpf] [facility]: [address] [place] [address], [place] ? ? ABNORMA Bacteria moderate negative Final [place] L [hpf] [hpf] [facility]: [address] [place] [address] ? ? ? Squamous Epi negative negative, Final [place] /[facility] small [facility]rology - /f [facility]: [address] [place] [address], [place] 10/14/2021 PSA, Total, BLDV ? PSA, Total 1.43 NG/mL 0.00-4 .00 Final [place] Serum or NG/mL [facility]rology - Plasma [facility]: [address] [place] [address] 10/14/2021 Culture, UR ? Final Report microbiolog ? Final [place] Urine y results [facility]: [address] [place] [address], [place] 09/15/2021 Urinalysis, UR ? Color yellow yellow Final [place] Dipstick -[facility]: [address] [place] [address], [place] ? ? UR ABNORMA Appearance cloudy clear Final [place] L -[facility]: [address] [place] [address], [place] ? ? UR ? Glucose negative negative Final [place] -[facility] mg/dL mg/dL [facility]: [address] ? ? UR ? Bilirubin negative negative Final [place] -[facility]: [address] ? ? UR ? Ketones negative negative Final [place] -[facility] mg/dL mg/dL [facility]: [address] [place] [address] ? ? UR ? Sp. Carrie 1.025 1.010-1.0 Final [place] -[facility] 25 [facility]: [address] [place] [address] ? ? UR ? pH -[facility] 6.0 5.0-8.0 Final [place] [facility]: [address] ? ? UR ABNORMA Protein 30 mg/dL negative Final [place] L -[facility] mg/dL [facility]: [address] [place] [address] ? ? UR ? Urobilinogen 0.2 normal Final [place] -[facility]: [address] ? ? UR ? Nitrites negative negative Final [place] [facility]: [address] ? ? UR ABNORMA Blood moderate negative Final [place] L -[facility]: [address] [place] [address] ? ? UR ABNORMA Leukocytes large negative Final [place] L -[facility]: [address] [place] [address] ? ? UR ? Performed by jasmyne Bustillos ? Final [place] [facility]: [address] [place] [address] ? ? UR ? Total Urine 60 /mL ? Final [place] Volume (mL) [facility]: [address] [place] [address] 09/15/2021 Urinalysis, ABNORMA U-WBC packed 0 - 2 Final [place] Microscopic L [hpf] [hpf] [facility]: [address] [place] [address] ? ? ABNORMA U-RBC 2 - 5 [hpf] 0 - 2 Final [place] L [hpf] [facility]: [address] [place] [address] ? ? ABNORMA Bacteria small [hpf] negative Final [place] L [hpf] [facility]: [address] [address], [place] ? ? ? Squamous Epi negative negative, Final [place] /lpf small [facility]rology - /lpf [facility]: [address] [place] [address], [place] 09/15/2021 Culture, UR ? Final Report microbiolog ? Final [place] Urine y results [facility]: [address] [place] [address] 09/09/2021 Urinalysis, UR ? Color yellow yellow Final [place] Dipstick -[facility]: [address] [place] [address], [place] ? ? UR ? Appearance clear clear Final [place] -[facility]: [address] [place] [address], [place] ? ? UR ? Glucose negative negative Final [place] -[facility] mg/dL mg/dL [facility]: [address] [place] [address] ? ? UR ? Bilirubin negative negative Final [place] [facility] [address] ? ? UR ? Ketones negative negative Final [place] -[facility] mg/dL mg/dL [facility]: [address] ? ? UR ? Sp. Carrie 1.020 1.010-1.0 Final [place] -[facility] 25 [facility]: [address] [place] [address], [place] ? ? UR ? pH -[facility] 5.5 5.0-8.0 Final [place] [facility]: [address] [address], [place] ? ? UR ABNORMA Protein 30 mg/dL negative Final [place] L -[facility] mg/dL [facility]: [address] ? ? UR ? Urobilinogen 0.2 normal Final [place] [facility]: [address] [address], [place] ? ? UR ? Nitrites negative negative Final [place] [facility]: [address] [address], [place] ? ? UR ABNORMA Blood moderate negative Final [place] L -[facility]: [address] ? ? UR ABNORMA Leukocytes large negative Final [place] L -[facility]: [address] [place] [address], [place] ? ? UR ? Performed by sylvester Case ? Final [place] [facility]: [address] [address], [place] ? ? UR ? Total Urine 80 /mL ? Final [place] Volume (mL) [facility]: [address] [place] [address], [place] 09/09/2021 Urinalysis, ABNORMA U-WBC 50 - 100 0 - 2 Final [place] Microscopic L [hpf] [hpf] [facility]: [address] [place] [address], [place] ? ? ? U-RBC 0 - 2 [hpf] 0 - 2 Final [place] [hpf] [facility]: [address] [place] [address], [place] ? ? ABNORMA Bacteria small [hpf] negative Final [place] L [hpf] [facility]: [address] [place] [address], [place] ? ? ? Squamous Epi small /lpf negative, Fin al [place] small [facility]rology - /lpf [facility]: [address] [place] [address], [place] Past Encounters 01/23/2022 Lower Urinary Tract Symptoms Due to [place] gn Prostatic Hypertrophy Tasia Alejandre, [place]: [address] [place] [phone], Ph. 11/28/2021 Retention of Urine Keagan Wallace MD: [address] [place] [phone], Ph. 11/02/2021 Prostate Nodule; Recurrent Urinary Tract Infection; Prostatitis Keagan Wallace MD: [address] [place] [phone], Ph. 11/02/2021 Raised Prostate Specific Antigen Keagan Wallace MD: [address] [place] [phone], Ph. 10/14/2021 Urinary Tract Infectious Disease; Retent ion of Urine Keagan Wallace MD: [address] [place] [phone], Ph. 10/14/2021 Raised Prostate Specific Antigen Keagan Wallace MD: [address] [place] [address], [address] [place] [phone], Ph. 09/15/2021 Dysuria Keagan Wallace MD: [address] [place] [address], [address] [place] [phone], Ph. 09/09/2021 Prostatitis; Incomplete Emptying of Blad alen; Prostate Nodule Keagan Wallace MD: [address] [place] [address], [facility] [address], [place] [phone], Ph. Social History Tobacco Smoking Status Never [...] ? Imaging None recorded. ? ? Vitals 01/23/2022 10:00AM ESTABLISHED 30 Height Weight BMI 5 ft 11 in 200 lbs 27.9 kg/m2 11/02/2021 11:45AM TRUS w/Biopsy 15 Height Weight BMI 5 ft 11 in 200 lbs 27.9 kg/m2 10/14/2021 11:00AM PROCEDURE 15 Height 5 ft 11 in 09/09/2021 01:15PM NEW PATIENT 15 Height Weight BMI 5 ft 11 in 200 lbs 27.9 kg/m2
--- OUTSIDE RECORDS SUMMARY | 2022-02-03 09:22 | XMS_ITS | Encounter Summary ---
:1950 Author Care Team Providers Name Role Phone Estela Elaine MD Primary Care Provider [phone] Reason for Visit Post Op Check Assessment and Plan Assessment Note This is a 71 year old male with a histo ry of lower urinary tract symptoms, recurrent episodes of prostatitis, and a prostate nodule who is now s/p TURP with Dr. Wallace on 01/20/2022 1. Lower urinary tract symptoms due to benign prostatic hypertrophy Discussion Note Hx of urinary retention, s/p TURP 01/20 -Patient did not pass voiding trial this morning - He was offered to have the catheter re inserted vs. learn [facility] - He is refusing both -If unable to urinate by the end of the day, instructed patient to return to the clinic. If after clinic hours, instructed to go to urgent care or the emergency department. -Monitor for symptoms of urinary retenti on including abdominal pain/pressure or distension, inability to urinate for 4-6 hours, dribbling or only urinating drops, or feeling of incomplete emptying. Patient educational handouts: No information available. Plan of Care Reminders Provider Appointments Established 30 03/03/2022 1:00PM [facility] None recorded. [...] drugs? N Functional Status Unknown. Past Encounters 01/23/2022 Lower Urinary Tract Symptoms Due to [place] gn Prostatic Hypertrophy Tasia Alejandre, ESTUARDO: [address] [facility], [address] [phone], Ph. History of Present Illness Note: <div>This is a 71 year old male with a history of lower urinary tract symptoms, recurrent episodes of prostatitis, and a prostate nodule who is now s/p TURP with Dr. Wallace on 01/20/2022</div><div>Presents for voiding trial today</div> Review of Systems None recorded. Physical Exam ? Notes: <div>General: Well nourished . Appears in good health. No acute distress.
Neuro: Awake, a lert, and oriented x 3. No focal neurologic signs. Motor function and sensation grossly intact.
Psych: Mood is appropriate. Good judgement.
Lungs: No dyspnea.
Abdomen: Soft, not distended
Extremities: Wa rm and well perfused. Moves all four extremities equally.
Skin: No edema.< /div>
--- OUTSIDE RECORDS SUMMARY | 2022-02-03 09:22 | XMS_ITS | Encounter Summary ---
:1950 Author Organization [place] Address [address] [place] [address] Care Team Providers Name Role Phone No Ref-Primary, Physician Primary Care Provider [phone] Savanah Gaming-Michael Unavailable [phone] Reason for Visit Reason Comments Rectal Bleeding Encounter Details Date Type Department Care Team Description 07/15/2020 Emergency [facility] Jennifer Arita, Ur inary tract infection without hematuria, site unspecified; [facility] Emergency DO Hyperkalemia; Dept EMERGENCY PHYSICIANS Rectal bleeding; [address] Diverticulosis of large intestine with h [place], [place] [address] [address] [place] [address] (Wo rk) Social History Tobacco Use Types [...] Care Everywhere. Urinary Tract Infections (UTIs), Understanding (Macedonian)Rectal Bleeding, Evaluating and Treating (Macedonian)documented in this encounter Medications at Time of [...] history of UTIs. He reports moving from [place] 2 days prior. Review of Systems Constitutional: [...] without arabella blood/melena. No external hemorrhoids/palpable mass. Post Form Remover RN Austin MSK: No calf tenderness or swelling. Neuro: Alert. Follows simple commands. Skin: Skin is warm and dry. No rash noted. Psychiatric: Normal affect. Emergency Department Course ECG: ECG taken at 0555, ECG read at 0558 Sinus tachycardia Left anterior fascicular block Septal infarct, age undetermined ST & T wave abnormality, consider lateral ischemia Abnormal ECG Rate 116 bpm. IA interval * ms. QRS duration 124 ms. [...] provided today as patient just moved to [place]. I will dispo home withantibiotics. We reviewed [...] observations and the provider's statements to me. [facility] EMERGENCY DEPT Jennifer Arita DO 07/15/20 0620 documented in this encounter Miscellaneous Notes Result Encounter Note - Mejia Dowling RN - 07/15/2020 6:10 AM CDT [facility] Emergency Dept discharge antibiotic (if prescribed): Cephalexin (Keflex) 500 mg capsule, 1 capsule (500 mg) by mouth 2 times daily for 7 days. Date of Rx (if applicable): 07/15/20 No changes in treatment per [facility] ED Lab Result Urine culture protocol. Result [...] timesdaily for 7 days. Treatment recommendations per [facility] ED Lab Result Urine Culture protocol. documented [...] EKG 12 lead (07/15/2020 5:55 AM CDT) [facility] gist Method Time Signature Interpretation ECG [...] EXAM: CT ABDOMEN PELVIS W CONTRAST LOCATION: [facility] DATE/TIME: 07/15/2020 5:08 AM INDICATION: [...] EXAM: CT ABDOMEN PELVIS W CONTRAST LOCATION: [facility] DATE/TIME: 07/15/2020 5:08 AM INDICATION: [...] Component Value Ref Test Analysis Performed At [facility] Range Method Time Signature Specimen Midstream Urine INFECTIOUS Description [facility], [facility] Special Specimen received 07/15/2020 INFECTIOUS Requests in preservative 8:41 AM CDT [facility], [facility] Culture Micro >100,000 colonies/mL 07/16/2020 INFE CTIOUS mixed urogenital cristian 9:44 AM CDT DISEA SES Susceptibility testing not routinely done DIAGNOSTIC LABORATORY, [facility] Specimen (Source) Anatomical Collection Method Collection Time Re ceived Time Location / / Volume Laterality Examination of 07/15/2020 3:58 07/15/2020 5:01 midstream urine AM CDT AM CDT specimen (procedure) Jennifer Arita DO LAB - MICRO GENERAL ORDERABL ES Performing Organization Address City/State/ZIP Code Phon e Number INFECTIOUS [facility]ES [facility] [address] [facility], [place] [address] LABORATORY, [facility] (ABNORMAL) Stool: occult blood (07/15/2020 3:58 AM CDT) [facility] Method Mesic Signature Occult Blood Positive (A) NEG^Negat 07/15/2020 [place] husam 4:23 AM [facility] Specimen Anatomical Collection Method Collection Time Receive d Time (Source) Location / / Volume Laterality Stool 07/15/2020 3:58 AM 4:21 CDT AM CDT Jennifer Arita DO LAB - STOOLS ORDERABLES Performing Organization Address City/State/ZIP [facility] Phon e Number [facility] [address], [place] [address] [facility] [address] [address] [facility] [phone] (ABNORMAL) UA with Microscopic (07/15/2020 3:58 AM CDT) [facility] Method Time Signature Color Urine Yellow 07/15/2020 [place] 4:37 AM [facility] Appearance Urine Cloudy 07/15/2020 [facility] 4:37 AM [facility] Glucose Urine Negative NEG^Negat 07/15/2020 [facility] husam mg/dL 4:37 AM [facility] Bilirubin Urine Negative NEG^Negat 07/15/2020 [facility] husam 4:37 AM [facility] Ketones Urine 40 (A) NEG^Negat 07/15/2020 [facility] husam mg/dL 4:37 AM [facility] Specific Bryant 1.016 1.003 - 07/15/2020 [facility] Urine 1.035 4:37 AM [facility] Blood Urine Moderate (A) NEG^Negat 07/15/2020 [facility] husam 4:37 AM [facility] pH Urine 6.0 5.0 - 7.0 07/15/2020 [facility] pH 4:37 AM [facility] Protein Albumin 200 (A) NEG^Negat 07/15/2020 [facility] Urine husam mg/dL 4:37 AM [facility] Urobilinogen Normal 0.0 - 2.0 07/15/2020 [facility] mg/dL mg/dL 4:37 AM [facility] Nitrite Urine Negative NEG^Negat 07/15/2020 [facility] husam 4:37 AM [facility] Leukocyte Large (A) NEG^Negat 07/15/2020 [facility] Esterase Urine husam 4:37 AM [facility] Source Midstream 07/15/2020 [facility] Urine 3:58 AM [facility] WBC Urine >182 (H) 0 - 5 07/15/2020 [facility] /HPF 4:37 AM [facility] RBC Urine 30 (H) 0 - 2 07/15/2020 [facility] /HPF 4:37 AM [facility] WBC Clumps Present (A) NEG^Negat 07/15/2020 [facility] husam /HPF 4:37 AM [facility] Bacteria Urine Moderate (A) NEG^Negat 07/15/2020 [facility] husam /HPF 4:37 AM [facility] Squamous 3 (H) 0 - 1 07/15/2020 [facility] Epithelial /HPF /HPF 4:37 AM [facility] Mucous Urine Present (A) NEG^Negat 07/15/2020 [place] huasm /LPF 4:37 AM [facility] Specimen (Source) Anatomical Collection Method Collection Time Re ceived Time Location / / Volume Laterality Examination of URINE SPECIMEN 07/15/2020 3:58 07/16/19 21 4:21 midstream urine OBTAINED BY CLEAN AM CDT AM CDT specimen CATCH PROCEDURE / (procedure) Unknown Jennifer Arita DO LAB - URINE ORDERABLES Performing Organization Address City/[facility] Phon e Number M [facility] [address], [place] [address] [facility] [address], [place] [address], [facility] [phone] INR (07/15/2020 2:20 AM CDT) athologist Signature INR 1.10 0.86 - 1.14 07/15/2020 [facility] 3:53 AM CDT HOSPITAL Specimen Anatomical Collection Method Collection Time Receive d Time (Source) Location / / Volume Laterality 07/15/2020 2:20 AM 2:27 CDT AM CDT Jennifer Arita DO LAB - BLOOD ORDERABLES Performing Organization Address City/[facility] Phon e Number M [facility] [address], [place] [address] [facility] [address], [place] [address], [facility] [phone] (ABNORMAL) Comprehensive metabolic panel (07/15/2020 2:20 AM CDT) athologist Signature Sodium 140 133 - 144 07/15/2020 [place] mmol/L 4:22 AM CDT [facility] Potassium 5.7 (H) 3.4 - 5.3 07/15/2020 [place] mmol/L 4:22 AM T [facility] Chloride 111 (H) 94 - 109 07/15/2020 [place] mmol/L 4:22 AM T [facility] Carbon Dioxide 24 20 - 32 07/15/2020 [place] mmol/L 4:22 AM [facility] Anion Gap 5 3 - 14 07/15/2020 [place] mmol/L 4:22 AM [facility] Glucose 110 (H) 70 - 99 07/15/2020 [facility] mg/dL 4:22 AM [facility] Urea Nitrogen 27 7 - 30 07/15/2020 [place] mg/dL 4:22 AM [facility] Creatinine 0.72 0.66 - 07/15/2020 [place] 1.25 mg/dL 4:22 AM [facility] GFR Estimate >90 >60 07/15/2020 [place] mL/min/{1. 4:22 AM [facility] 73_m2} HOSPITAL Comment: Non GFR Calc Starting 03/19/2018, serum creatinine ba sed estimated GFR (eGFR) will be calculated using the Chronic Kidney Dise [facility] Epidemiology Collaboration (CKD-EPI) equation. GFR Estimate If >90 >60 mL/min/{1.73_m2} 07/15/2020 4: 22 AM [facility] Comment: GFR Calc Starting 03/19/2018, serum creatinine ba sed estimated GFR (eGFR) will be calculated using the Chronic Kidney Dise [facility] Epidemiology Collaboration (CKD-EPI) equation. Calcium 8.9 8.5 - 10.1 07/15/2020 4:22 AM [facility] mg/dL [facility] Bilirubin Total 1.4 (H) 0.2 - 1.3 mg/dL 07/15/2020 4:22 AM [facility] Albumin 3.0 (L) 3.4 - 5.0 g/dL 07/15/2020 4:22 AM [facility] Protein Total 7.1 6.8 - 8.8 g/dL 07/15/2020 4:22 AM [facility] Alkaline Phosphatase 80 40 - 150 U/L 07/15/2020 4:22 AM [facility] ALT 26 0 - 70 U/L 07/15/2020 4:22 AM [facility] AST 43 0 - 45 U/L 07/15/2020 4:22 AM [facility] Comment: Specimen is hemolyzed which can falsely elevate AST. Analysis of a non-hemolyzed specimen may result in a l ower value. Specimen Anatomical Collection Method Collection Time Receive d Time (Source) Location / / Volume Laterality 07/15/2020 2:20 AM 2:27 CDT AM CDT Jennifer Arita DO LAB - BLOOD ORDERABLES Performing Organization Address City/State/ZIP Code Phon e Number M [facility] [address] [place] [address] [facility] [address] [place] [address], [place] [phone] (ABNORMAL) CBC with platelets differential (07/15/2020 2:20 AM CDT) [facility] Method Time Signature WBC 11.7 (H) 4.0 - 07/15/2020 [facility] 11.0 2:30 AM [facility] 10e9/L [facility] RBC Count 5.02 4.4 - 5.9 07/15/2020 [facility] 10e12/L 2:30 AM [facility] Hemoglobin 15.8 13.3 - 07/15/2020 [facility] 17.7 g/dL 2:30 AM [facility] Hematocrit 48.2 40.0 - 07/15/2020 [facility] 53.0 % 2:30 AM [facility] MCV 96 78 - 100 07/15/2020 [facility] fl 2:30 AM [facility] MCH 31.5 26.5 - 07/15/2020 [facility] 33.0 pg 2:30 AM [facility] MCHC 32.8 31.5 - 07/15/2020 [facility] 36.5 g/dL 2:30 AM [facility] RDW 13.7 10.0 - 07/15/2020 [facility] 15.0 % 2:30 AM [facility] Platelet Count 241 150 - 450 07/15/2020 [facility] 10e9/L 2:30 AM [facility] Diff Method Automated 07/15/2020 [facility] Method 2:30 AM [facility] % Neutrophils 75.5 % 07/15/2020 [facility] 2:30 AM [facility] % Lymphocytes 13.7 % 07/15/2020 [facility] 2:30 AM [facility] % Monocytes 8.3 % 07/15/2020 [facility] 2:30 AM [facility] % Eosinophils 1.6 % 07/15/2020 [facility] % Basophils 0.5 % 07/15/2020 [facility] 2[facility]30 AM [facility] % Immature 0.4 % 07/15/2020 [facility] Granulocytes 2:30 AM [facility] Nucleated RBCs 0 0 /100 07/15/2020 [facility] 2:30 AM [facility] Absolute 8.8 (H) 1.6 - 8.3 07/15/2020 [place] Neutrophil 10e9/L 2:30 AM [facility] Absolute 1.6 0.8 - 5.3 07/15/2020 [place] Lymphocytes 10e9/L 2:30 AM [facility] Absolute 1.0 0.0 - 1.3 07/15/2020 [facility] Monocytes 10e9/L 2:30 AM [facility] Absolute 0.2 0.0 - 0.7 07/15/2020 [facility] Eosinophils 10e9/L 2:30 AM [facility] Absolute 0.1 0.0 - 0.2 07/15/2020 [place] Basophils 10e9/L 2:30 AM [facility] Abs Immature 0.1 0 - 0.4 07/15/2020 [place] Granulocytes 10e9/L 2:30 AM [facility] Absolute 0.0 07/15/2020 [place] Nucleated RBC 2:30 AM [facility] Specimen Anatomical Collection Method Collection Time Receive d Time (Source) Location / / Volume Laterality Blood 07/15/2020 2:20 AM 2:27 CDT AM CDT Jennifer Arita DO LAB - BLOOD ORDERABLES Performing Organization Address City/State/ZIP Code Phon e Number M [facility] [address], [place] [address] [facility] [address] [phone] documented in this encounter Visit Diagnoses Diagnosis [...] dose documented in this encounter Care Teams Insurance Marketing Specialist Relationship Specialty Start Date End Date No Ref-Primary, Physician PCP - General 07/15/20 Savanah Gaming PA-C Assigned PCP 06/24/20 08/25/20 [address] [place] [address] documented as of this encounter
== END 2022-01-27 08:12 | disposition home or self-care (01) ==
LOC: FRMREF 02-03 09:18
PROVIDERS: PCP Family Medicine; Visit Provider Physician Assistant Medical
DX: N39.0 Urinary tract infection, site not specified (principal)
CPT/HCPCS: 87086; 87186

== ENCOUNTER 2022-02-16 08:39 | Outpatient (CLI) | payer MEDICARE, SELFPAY ==
--- OUTSIDE RECORDS SUMMARY | 2022-02-16 08:41 | XMS_ITS | Encounter Summary ---
:1950 Author Organization [place] Address [facility] [place] [address] Care Team Providers Name Role Phone No Ref-Primary, Physician Primary Care Provider [phone] Lino Radford DO Unavailable Wilian Castañeda [...] on filedocumented in this encounter Care Teams Manufacturing Maintenance Manager Relationship Specialty Start Date End Date No Ref-Primary, Physician PCP - General 07/15/20 Lino Radford DO Assigned PCP 08/26/20 [address] [place] [address] Wilian Castañeda MD Assigned Heart and Vascular 09/12/20 [address] [facility] Provider [address] [place] [address] documented as of this encounter
--- OUTSIDE RECORDS SUMMARY | 2022-02-16 08:41 | XMS_ITS | Encounter Summary ---
:1950 Author Organization [place] Address [facility] [place] [address] Care Team Providers Name Role Phone No Ref-Primary, Physician Primary Care Provider [phone] Lino Radford DO Unavailable Wilian Turner [...] [facility] STATISTIC IV PUSH SINGLE INITIAL SUBSTANCE WA ECHO MYOCARD BX WA INJECTION, PERFLUTREN LIPID MICROSPHERES, PER ML WA TTE W/DOPPLER, COMPLETE [address] [place] IV PUSH SINGLE, INITIAL S UBSTANCE WA TTE W/DOPPLER, COMPLETE WA TTE W/DOPPLER, COMPLETE HC US GUIDE FOR PERICARDIOCENTESIS HC ECHO MYOCARD BX HC IV PUSH SINGLE, INITIAL SUBSTANCE HC STATISTIC IV PUSH SINGLE INITIAL SUBSTANCE [address] HC ECHO COMPLETE W DOPPLER W CONTRAST HC ECHO COMPLETE W DOPPLER W/O CONTRAST [place] [address] [place] [address] Referral ID Status Reason Start Date Expiration Date Visits Requ ested Visits Authorized [id number] Closed 09/01/2020 09/01/2021 1 1 Reason for Visit Auth/Cert Specialty Diagnoses / Procedures Referred By Contact Refer red To Contact Cardiology Sh Cv Cardiac Se rvices [address] [facility] ue [facility] [address] [place] [address] Phone: Referral ID Status Reason Start Date Expiration Date Visits Requ ested Visits Authorized [id number] 1 1 Encounter Details Date Type Department Care Team Description 09/29/2020 Hospital Encounter M [facility] Wilian Turner Ch ronic [facility] MD Tj fibrillation (H) Heart Care [address] 6405 [facility] [address] [place] [address] [address] [place], [place] (Work) [address] Social History Tobacco Use Types [...] PM CDT Narrative 09/29/2020 2:20 PM CDT [id number]^YUE^WILIAN^TJ [facility] Heart Echocardiography Laboratory [address] [facility] [address] [place] [address] Name: MARLON OWENS : 1950 Study Date: 09/29/2020 12:50 PM Age: 70 yrs Gender: Male Patient Location: [facility] Reason For Study: Chronic atrial fibrill ation (H) Ordering Physician: WILIAN TURNER Referring Physician: WILIAN TURNER Performed By: Silvia Rubio BSA: 2.3 m2 Height: 71 in Weight: 243 lb HR: 112 BP: 120/82 mmHg Procedure Complete Echo Adult. Breanna ([facility] #[id number]) given intravenously. Interpretation Summary The left ventricle [...] Procedure Note Odessa Aguila MD - 09/29/2020 [id number]^YUE^WILIAN^[facility] [address] [facility] [address] [place] [address] Name: MARLON OWENS : 1950 Study Date: 09/29/2020 12:50 PM Age: 70 yrs Gender: Male Patient Location: [facility] Reason For Study: Chronic atrial fibrill ation (H) Ordering Physician: WILIAN TURNER Referring Physician: WILIAN TURNER Performed By: Silvia Rubio BSA: 2.3 m2 Height: 71 in Weight: 243 lb HR: 112 BP: 120/82 mmHg Procedure Complete Echo Adult. Optison ([facility] #[id number]) given intravenously. Interpretation Summary The left ventricle [...] On Sun09/29/20 at 1400, For 1 dose, MAC- [id number] sodium chloride (PF) 0.9% PF flush 10 mL Given 09/29/2020 1:44 PM CDT 10 mLs 10 mL, Intravenous, ONCE, On Sun09/29/20 at 1400, For 1 dose documented in this encounter Care Teams Grain Receiver Relationship Specialty Start Date End Date No Ref-Primary, Physician PCP - General 07/15/20 Lino Radford DO Assigned PCP 08/26/20 [address] [place] [address] Wilian Turner MD Assigned Heart and Vascular 09/12/20 [address] [facility] Provider [address] [place] [address] documented as of this encounter
--- OUTSIDE RECORDS SUMMARY | 2022-02-16 08:41 | XMS_ITS | Encounter Summary ---
:1950 Author Organization [place] Address [address] [place] [address] Care Team Providers Name Role Phone No Ref-Primary, Physician Primary Care Provider [phone] Lino Radford DO Unavailable Wilian Castañeda MD Unavailable Justine Laurent PA-C Unavailable [phone] Encounter Details Date Type Department Care [...] on filedocumented in this encounter Care Teams Copier Repair Technician Relationship Specialty Start Date End Date No Ref-Primary, Physician PCP - General 07/15/20 Lino Radford DO Assigned PCP 08/26/20 [address] [place] [address] Wilian Castañeda MD Assigned Heart and Vascular 09/12/20 [address] [facility] Provider [address] [place] [id number] Justine Laurent, Assigned Surgical Provider 01/02/21 [place] [address] [place] [id number] documented as of this encounter
--- OUTSIDE RECORDS SUMMARY | 2022-02-16 08:41 | XMS_ITS | Encounter Summary ---
:1950 Author Organization [place] Address [facility] [place] [address] Care Team Providers Name Role Phone No Ref-Primary, Physician Primary Care Provider [phone] Lino Radford DO Unavailable Wilian Castañeda MD Unavailable Reason for Visit Reason Onset Date Comments Medication Question 11/01/2020 Encounter Details Date Type Department Care Team Description 11/01/2020 Telephone [facility] Heart Jerri Rincon, desktop support consultant Question Clinic [address] [place] [address] Social History Tobacco Use Types [...] pt there are refills ready at pharmacy fornhm to request. Pt also asked how long [...] on filedocumented in this encounter Care Teams Wood Gang Sawyer Relationship Specialty Start Date End Date No Ref-Primary, Physician PCP - General 07/15/20 Lino Radford DO Assigned PCP 08/26/20 [address] [place], [place] [address] Wilian Castañeda MD Assigned Heart and Vascular 09/12/[address] [facility] Provider [address] [place] [address] documented as of this encounter
--- OUTSIDE RECORDS SUMMARY | 2022-02-16 08:41 | XMS_ITS | Clinical Summary ---
:1950 Author Organization [place] Address [address] [place] [address] Care Team Providers Name Role Phone No Ref-Primary, Physician Primary Care Provider [phone] Lino Radford DO Unavailable Wilian Castañeda MD Unavailable Justine Laurent PA-C Unavailable [phone] Allergies No known active allergies Medications [...] Addre ss Type Group BCBS BCBS MEDICARE [id number] 2020-Edd [phone] [address] [address] Medicare ADVANTAGE t 0 [place] [address] Care Teams Coffee Taster Relationship Specialty Start Date End Date No Ref-Primary, Physician PCP - General 07/15/20 Lino Radford DO Assigned PCP 08/26/20 [address] [place] [address] Wilian Castañeda MD Assigned Heart and Vascular 09/12/20 [address] [facility] Provider [address] [place] [id number] Justine Laurent, Assigned Surgical Provider 01/02/21 [place] [address] [place] [id number]
--- OUTSIDE RECORDS SUMMARY | 2022-02-16 08:41 | XMS_ITS | Encounter Summary ---
:1950 Author Organization [place] Address [facility] [place] [address] Care Team Providers Name Role Phone No Ref-Primary, Physician Primary Care Provider [phone] Lino Radford DO Unavailable Wilian Castañeda MD Unavailable Reason for Visit Reason Onset Date Comments Clinic Care Coordination - Follow-up 09/23/2020 Encounter Details Date Type Department Care Team Description 09/23/2020 Telephone [facility] Jerri Rincon, MICHAEL Clinic Care Coordination Clinic [place] - Follow-up [address] [facility] [address] [place] [address] Social History Tobacco Use Types [...] on filedocumented in this encounter Care Teams Pack Train Driver Relationship Specialty Start Date End Date No Ref-Primary, Physician PCP - General 07/15/20 Lino Radford DO Assigned PCP 08/26/20 [address] [place] [address] Wilian Castañeda MD Assigned Heart and Vascular 09/12/20 [address] [facility] Provider [address] [place] [address] documented as of this encounter
--- OUTSIDE RECORDS SUMMARY | 2022-02-16 08:41 | XMS_ITS | Encounter Summary ---
:1950 Author Organization [place] Address [address] [place] [address] Care Team Providers Name Role Phone No Ref-Primary, Physician Primary Care Provider [phone] Lino Radford DO Unavailable Wilian Castañeda MD Unavailable Reason for Visit Reason Onset Date Comments Clinic Care Coordination - Follow-up 11/08/2020 blo od in urine---UTI Encounter Details Date Type Department Care Team Description 11/08/2020 Telephone [facility] Heart Denisa Fisher, Clinic Care Coordination Clinic Lizzy RN - Follow-up (blood in [address] urine---U TI ) [facility] [address] [place] [address] Social History Tobacco Use Types [...] after his OV with Dr Mistry at [facility]. JNelsonRN Telephone Encounter - Jerri Rincon RN - 11/12/2020 2:05 PM CDT 11/12/[address] order recd from Dr Castañeda -Stop Eliquis - Pt should see his PCP to determine source of bleeding. He may possibly need Urology consult or Watchman -Cancel DCCV for now Spoke w pt and explained recommendations. Pt has appt to establish care with Dr Cody Mistry at [facility] on 11/18. Plan was made to connect [...] does have follow up with PCP at [facility] in [place] on 11/18 he will be seeing Dr Cody Mistry. Patient agreed with plan and provided verbal understanding regarding above. MICHAEL Bynum documented in this encounter Plan of Treatment Not on filedocumented as of this encounter Visit Diagnoses Not on filedocumented in this encounter Care Teams Furniture Assembly Supervisor Relationship Specialty Start Date End Date No Ref-Primary, Physician PCP - General 07/15/20 Lino Radford DO Assigned PCP 08/26/20 [address] [place] [address] Wilian Castañeda MD Assigned Heart and Vascular 09/12/20 [address] [facility] Provider [address] [place] [address] documented as of this encounter
--- OUTSIDE RECORDS SUMMARY | 2022-02-16 08:41 | XMS_ITS | Encounter Summary ---
:1950 Author Organization [place] Address [facility] [place] [address] Care Team Providers Name Role Phone No Ref-Primary, Physician Primary Care Provider [phone] Lino Radford DO Unavailable Wilian Castañeda MD Unavailable Reason for Referral CV Testing (Routine) - Closed Specialty Diagnoses / Procedures Referred By Contact Refer red To Contact Cardiology Diagnoses Chronic atrial fibrillation (H) Wilian Castañeda Sh Cv Cardiac Services Procedures Leadless research & insights executive 3 to 7 Days ZZHC EXT ECG > 48HR TO 21 DAY RCRD W/CONECT INTL RCRD ZZC EXT ECG > 48HR TO 21 DAY REVIEW AND INTERPRETATN LA EXT ECG > 48HR TO 21 DAY RCRD W/CONECT INTL RCRD [address] [place] EXT ECG > 48HR TO 21 DAY REVIEW AND INTERPRETATN HC EXT ECG > 48HR TO 21 DAY RCRD W/CONECT INTL RCRD [address] [place] [address] [place] [phone] Referral ID Status Reason Start Date Expiration Date Visits Requ ested Visits Authorized [id number] Closed 09/01/2020 09/01/2021 1 1 Reason for Visit Auth/Cert Specialty Diagnoses / Procedures Referred By Contact Refer red To Contact Cardiology Cv Cardiac Se rvices [address] [place] [phone] Phone: Referral ID Status Reason Start Date Expiration Date Visits Requ ested Visits Authorized [id number] 1 1 Encounter Details Date Type Department Care Team Description 09/29/2020 Hospital Encounter [facility] MD Arnaldo fibrillation (H) Heart Care 6[address] [facility] 6405 [facility] [address] [facility] [place] [address] [address] [place] (Work) [address] Social History [...] Priority Date/Time Associated Diagnosis Comme nts LEADLESS LUMBER BUYER Routine 09/29/2020 1:51 Chronic atrial Re sults for this APPLICATION AND PM CDT fibrillation (H) procedur e are in INTERPRETATION 3 TO 7 the re DAY section. documented in this encounter Results LEADLESS LUMBER BUYER APPLICATION AND INTERPRETATION 3 TO 7 DAY [...] fibrillation documented in this encounter Care Teams Brusher Tender Relationship Specialty Start Date End Date No Ref-Primary, Physician PCP - General 07/15/20 Lino Radford DO Assigned PCP 08/26/20 [address] [place] [address] Wilian Castañeda MD Assigned Heart and Vascular 09/12/20 [address] [facility] Provider [address] [place] [address] documented as of this encounter
--- OUTSIDE RECORDS SUMMARY | 2022-02-16 08:41 | XMS_ITS | Encounter Summary ---
:1950 Author Organization [place] Address [facility] [place] [address] Care Team Providers Name Role Phone No Ref-Primary, Physician Primary Care Provider [phone] Lino Radford DO Unavailable Wilian Castañeda MD Unavailable Reason for Referral (Routine) - Closed Specialty Diagnoses / Procedures Referred By Contact Refer red To Contact Diagnoses Chronic atrial fibrillation (H) Wilian Castañeda MD Procedures Cardioversion [address] [place] [address] Referral ID Status Reason Start Date Expiration Date Visits Requ ested Visits Authorized [id number] Closed 10/27/2020 10/27/2021 1 1 Reason for Visit Reason Comments FU Cardiac testing echo, ZPatch (Routine) - Closed Specialty Diagnoses / Procedures Referred By Contact Refer red To Contact Diagnoses Chronic atrial fibrillation (H) Wilian Castañeda MD [address] [place] [address] Referral ID Status Reason Start Date Expiration Date Visits Requ ested Visits Authorized [id number] Closed 09/01/2020 09/01/2021 1 1 Encounter Details Date Type Department Care Team Description 10/27/2020 Office Visit [facility] Wilian Castañeda Chronic atrial Heart [facility] Lizzy Mcintosh MD fibrillation (H) [address] [place] [address] [place] [address] [phone] Social History Tobacco Use Types Packs/Day Years [...] for evaluation. ?? Patient recently moved from [place] to [place]. He was told in the past that he had A. fib, however he denies actually having any physical back in [place]. Here [place], he establish care with PCP and was [...] I favor at least an attempt of buddhism of normal rhythm. As he is intolerant [...] Other Topics Concern ??? Parent/sibling w/ CABG, ID or angioplasty before 65F 55M? Not Asked [...] [address] [place] [address] documented in this encounter Plan of Treatment Scheduled Orders Name Type Priority Associated Diagnoses Order S chedule Cardioversion Electrophysiology Routine Chronic atrial Expecte d: 11/27/2020 fibrillation (H) (Approximat e), Expires: 2021 documented as of this encounter Visit Diagnoses Diagnosis Chronic atrial fibrillation (H) Atrial fibrillation documented in this encounter Care Teams Storage Facility Rental Clerk Relationship Specialty Start Date End Date No Ref-Primary, Physician PCP - General 07/15/20 Lino Radford DO Assigned PCP 08/26/20 [address] [place] [address] Wilian Castañeda MD Assigned Heart and Vascular 09/12/20 [address] Provider [address] [place] [address] documented as of this encounter
--- OUTSIDE RECORDS SUMMARY | 2022-02-16 08:41 | XMS_ITS | Encounter Summary ---
:1950 Author Organization [place] Address [address] [place] [address] Care Team Providers Name Role Phone No Ref-Primary, Physician Primary Care Provider [phone] Lino Radford DO Unavailable Wilian Castañeda MD Unavailable Reason for Visit Reason Onset Date Comments Orders 10/27/2020 Encounter Details Date Type Department Care Team Description 10/27/2020 Telephone [facility] Rufus Fisher RN Orders [place] [address] [facility] [address] [place] [address] Social History Tobacco Use Types [...] fibrillation documented in this encounter Care Teams Design Analyst Relationship Specialty Start Date End Date No Ref-Primary, Physician PCP - General 07/15/20 Lino Radford DO Assigned PCP 08/26/20 [address] [place] [address] Wilian Castañeda MD Assigned Heart and Vascular 09/12/20 [address] [place] Provider [address] [place] [address] documented as of this encounter
--- OUTSIDE RECORDS SUMMARY | 2022-02-16 08:41 | XMS_ITS | Encounter Summary ---
:1950 Author Organization [place] Address [address] [place] [address] Care Team Providers Name Role Phone No Ref-Primary, Physician Primary Care Provider [phone] Lino Radford DO Unavailable Wilian Castañeda MD Unavailable Reason for Visit Reason Onset Date Comments Clinic Care Coordination - Follow-up 10/28/2020 Encounter Details Date Type Department Care Team Description 10/28/2020 Telephone [facility] Jerri Rincon, MICHAEL Clinic Care Coordination Clinic [place] - Follow-up 6[address] [facility] [address] [place] [address] Social History Tobacco Use Types [...] on filedocumented in this encounter Care Teams Production Control Clerk Relationship Specialty Start Date End Date No Ref-Primary, Physician PCP - General 07/15/20 Lino Radford DO Assigned PCP 08/26/20 [address] [place] [address] Wilian Castañeda MD Assigned Heart and Vascular 09/12/20 [address] [place] Provider [address] [place] [address] documented as of this encounter
--- OUTSIDE RECORDS SUMMARY | 2022-02-16 08:41 | XMS_ITS | Clinical Summary ---
:1950 Author Organization [facility] [place] [address] Care Team Providers Name Role Phone Yelena Multani DO Primary Care Provider [phone] Allergies No known active allergies Medications Medication [...] Signature HEMOGLOBIN 13.5 13.5 - 17.5 01/21/2022 [facility] g/dL 7:32 AM CDT LABORATORY MCV 93 80 - 100 fL 01/21/2022 [facility] 7:32 AM CDT LABORATORY Specimen Anatomical Collection Method / Collection Time Recei ernesto Time (Source) Location / Volume Laterality Blood BLOOD SPECIMEN / Venipuncture / 01/21/2022 6:58 2021 7:24 Unknown Unknown AM CDT AM CDT Keagan Wallace MD HEMATOLOGY Performing Organization Address City/State/ZIP Code Phon e Number [facility] LABORATORY SENDOUT INTERNAL ZIP [place], [place] [phone] [place] [address] (ABNORMAL) Basic Metabolic Panel (01/21/2022 6:58 AM CDT) Analysis Performed At Patho logist Time Signature SODIUM 139 135 - 145 01/21/2022 [facility] mmol/L 8:37 AM [facility] POTASSIUM 4.5 3.5 - 5.0 01/21/2022 [facility] mmol/L 8:37 AM [facility] CHLORIDE 109 98 - 110 01/21/2022 [facility] mmol/L 8:37 AM [facility] CO2,TOTAL 22 21 - 31 01/21/2022 [facility] mmol/L 8:37 AM [facility] ANION GAP 8 5 - 18 01/21/2022 [facility] 8:37 AM [facility] GLUCOSE 104 (H) 65 - 100 01/21/2022 [facility] mg/dL 8:37 AM [facility] CALCIUM 9.0 8.5 - 10.5 01/21/2022 [facility] mg/dL 8:37 AM [facility] BUN 22 8 - 25 01/21/2022 [facility] mg/dL 8:37 AM [facility] CREATININE 0.73 0.72 - 01/21/2022 [facility] 1.25 mg/dL 8:37 AM [facility] BUN/CREAT RATIO 30 (H) 10 - 20 01/21/2022 [facility] 8:37 AM [facility] eGFR >90 >90 01/21/2022 [facility] mL/min/1.7 8:37 AM [facility] 3m2 LABORATORY Comment: As of 2021, eGFR [...] Organization Address City/State/ZIP Code Phon e Number [facility] LABOR[facility]ORY SENDOUT INTERNAL ZIP [place] [phone] [facility] PATH TISSUE EXAM (01/20/2022 12:31 PM CDT) Component Value Ref Test Analysis Performed At [facility] gist Range Method Time Signature Case Report Pathology Report ?Case: [id number] ? 01/23/2022 [facility] Authorizing Provider: ??Keagan Wallace MD ?? Collected: ? 01/20/2022 1231 ? 11:[address] [facility] Ordering Location: ? [facility] ?Received: ?01/20/2022 1247 ? CDT [facility] Pathologist: ? Yasmeen Chan MD ? ENTRAL Specimen: ?Prostate, pr ostate chips ? LABORATORY Final PROSTATE, TRANSURETHRAL RESECTION: 01/23 [facility] Electronically Diagnosis 1. Nodular hyperplasia 11:[address] [facility] signed by Dustin, 2. Patchy chronic inflammation CDT LABORATORY-C Yasmeen Bernardo MD on 3. Negative for atypia and malignancy ENTRAL 01/23/2022 at LABORATORY 11:27 AM Clinical BPH 01/23/2022 [facility] Information 11:[address] [facility] CDT LABORATORY-C ENTRAL LABORATORY Gross A) Received in formalin, lab eled with the patient's name and prostate, prostate chips, is a 6 g, 5 x 4 x 1.5 cm aggregate of garcia-pink rubbery cauterized tissue. ??Tissue is admixed with multiple, 0.1- 01/23/2022 [facility] Description 0.3 cm brown calculi. ??Spec imen (minus visible calculi) is entirely submitted in 6 cassettes. 11:28 AM [facility] CDT LABORATORY Specimen is placed in formalin at 12: 58 on 01/20/2022. NRM 01/20/2022 Microscopic The final 01/23/2022 [facility] Description diagnosis is 11:28 AM [facility] based on CDT LABORATORY-C microscopic ENTRAL examination of LABORATORY appropriate sections of all specimens. Additional 01/23/2022 [facility] Information Interpreted at [facility], Central Laboratory - [address], [place] [address] 11:28 AM [facility] CDT LABORATORY-C ENTRAL LABORATORY Specimen Anatomical Collection Method Collection Time Receive d Time (Source) Location / / Volume Laterality Tissue SPECIMEN FROM 01/20/2022 12:31 01/20/2022 PROSTATE / Unknown PM CDT 12:47 PM CDT Keagan Wallace MD PATHOLOGY/CYTOLOGY Performing Organization Address City/State/ZIP Code Phon e Number [facility] [address] [address] LABORATORY-CENTRAL 2000 LABORATORY [facility] LABORATORY SENDOUT INTERNAL ZIP [place] [phone] [place] [address] HC TUBE PR1, [facility] STYLET PR1, HG MOUTHPIECE PR1 (01/20/2022 12:01 [...] Group MEDICARE PART A MEDICARE PART A [id number] 2015-[employer] ATTN: CLAIMS - HB USE ONLY HB ONLY t [address] [place] [address] BLUE CROSS MR BLUE CROSS [id number] 2020-[employer] [address] [place] [phone] Advance Directives Latest Code Status on File Code Status Date Activated Date Inactivated Comments Full Code 01/20/2022 9:01 AM 01/21/2022 2:38 PM Should be discussed pre operatively with anesthesia or surgeon Code Status Discussion: Not Discussed Care Teams Marshmallow Machine Worker Relationship Specialty Start Date End Date Yelena Multani, PCP - General Family Practice 01/02/[address] [id number]
--- OUTSIDE RECORDS SUMMARY | 2022-02-16 08:41 | XMS_ITS | Encounter Summary ---
:1950 Author Organization [place] Address [address] [place] [address] Care Team Providers Name Role Phone No Ref-Primary, Physician Primary Care Provider [phone] Lino Radford DO Unavailable Wilian Castañeda MD Unavailable Reason for Visit Reason Comments Frequent UTI's Recs were faxed to [facility]berg Encounter Details Date Type Department Care Team Description 12/23/2020 Virtual Visit [facility] Justine Laurent y tract Urology Clinic [place] NENA Cervantes infection with [place] [address] hematuria, site [address] [place] [address] unspecified ([place] [address] Dx) [address] [place], [place] (Work) [address] Social History Tobacco Use [...] ??? Frequent UTI's Recs were faxed to [place] Diya Sanders LPN documented in this encounter Plan of Treatment Not on filedocumented as of this encounter Visit Diagnoses Diagnosis Urinary tract infection with hematuria, site unspecified - Primary documented in this encounter Care Teams Documentum Consultant Relationship Specialty Start Date End Date No Ref-Primary, Physician PCP - General 07/15/20 Lino Radford DO Assigned PCP 08/26/20 [address] [place] [address] Wilian Castañeda MD Assigned Heart and Vascular 09/12/20 [address] [facility] Provider [address] [place] [id number] documented as of this encounter
--- OUTSIDE RECORDS SUMMARY | 2022-02-16 08:41 | XMS_ITS | Encounter Summary ---
:1950 Author Organization [place] Address [address] [place] [address] Care Team Providers Name Role Phone No Ref-Primary, Physician Primary Care Provider [phone] Lino Radford DO Unavailable Wilian Castañeda MD Unavailable Encounter Details Date Type Department Care Team Description 12/02/2020 Medical Correspondence [facility] Hospital Scan, CLINIC REFERRAL Health Info [facility] Non-Provider [facility] [address] [place] [address] Social History Tobacco Use Types Packs/Day [...] on filedocumented in this encounter Care Teams Mdm Sr Relationship Specialty Start Date End Date No Ref-Primary, Physician PCP - General 07/15/20 Lino Radford DO Assigned PCP 08/26/20 [address] [place] [address] Wilian Castañeda MD Assigned Heart and Vascular 09/12/20 [address] [facility] Provider [address] [place] [address] documented as of this encounter
--- OUTSIDE RECORDS SUMMARY | 2022-02-16 08:41 | XMS_ITS | Encounter Summary ---
:1950 Author Organization [place] Address [address] [place] [address] Care Team Providers Name Role Phone No Ref-Primary, Physician Primary Care Provider [phone] Lino Radford DO Unavailable Wilian Castañeda MD Unavailable Reason for Visit Reason Comments Hematuria Encounter Details Date Type Department Care Team Description 11/04/2020 Emergency [facility] Silvio Garcia, [facility] [address] [place] [address] Urinary tract [facility] Emergency Dep Lowell Alberto APRN [facility] [address] [place], [place] [id number] infection [address] [place] [address] Social History Tobacco Use Types Packs/Day Years [...] through Care Everywhere. Bladder Infection, Male (Adult) (Egyptian)documented in this encounter Medications at Time of [...] the hematuria began on 10/27/20 after his wood turning lathe operator prescribed him Eliquis and Coreg for an upcoming cardioversion at the end of October. He reports that the blood in his urine has increased everyday since starting his medications. He notes that his wood turning lathe operator's nurse was concerned for a UTI, so he presented to a [facility] that directed him [...] contact Emergency Department Course Laboratory: UA: Color: Pleasants(A), Appearance: Cloudy(A), Blood: Large(A), Protein Albumin: 70(A), [...] checked for urinary tract infection by his wood turning lathe operator's nurse. His examination shows no physical [...] to me. Lowell Ramos APRN CNP 11/04/20 2894 documented in this encounter Plan of Treatment [...] (ABNORMAL) Urine Culture (11/04/2020 3:56 PM CDT) [facility] Method Time Signature Culture >100,000 CFU/mL ADRIANA [...] Code Phon e Number [facility] [place] [address] Diag. Lab [address] [facility], Room D297 [facility] Infectious [place], [place] [phone] Diseases Diagnostic [id number], [facility] Lab (IDDL) [address] [facility], Room D297 (ABNORMAL) UA with Microscopic reflex to Culture (11/04/2020 3:56 PM CDT) [facility] Method Time Signature Color Urine Pleasants (A) Colorless, 11/04/2020 [facility] Straw, 4:37 PM CDT Light Yellow, Yellow Appearance Urine Cloudy (A) Clear 11/04/2020 [facility] LAB[facility]ATO RY 4:37 PM CDT Glucose Urine Negative Negative 11/04/2020 [facility] mg/dL 4:37 PM CDT Bilirubin Urine Negative Negative 11/04/2020 [facility] 4:37 PM CDT Ketones Urine Negative Negative 11/04/2020 [facility] mg/dL 4:37 PM CDT Specific [place] 1.019 1.003 - 11/04/2020 [facility] LABORATOR Y [...] Address City/State/ZIP Code [place] [address] Care Lab [address] [...] Infection documented in this encounter Care Teams Manager Telemarketing Relationship Specialty Start Date End Date No Ref-Primary, Physician PCP - General 07/15/20 Lino Radford DO Assigned PCP 08/26/20 [address] [place] [address] Wilian Castañeda MD Assigned Heart and Vascular 09/12/20 [address] [facility] Provider [address] [place] [address] documented as of this encounter
--- OUTSIDE RECORDS SUMMARY | 2022-02-16 08:41 | XMS_ITS | Encounter Summary ---
:1950 Author Organization [place] Address [facility] [place] [address] Care Team Providers Name Role Phone No Ref-Primary, Physician Primary Care Provider [phone] Lino Radford DO Unavailable Wilian Castañeda [...] on filedocumented in this encounter Care Teams Cashier Self Service Gasoline Relationship Specialty Start Date End Date No Ref-Primary, Physician PCP - General 07/15/20 Lino Radford DO Assigned PCP 08/26/20 [address] [place] [address] Wilian Castañeda MD Assigned Heart and Vascular 09/12/20 [address] [facility] Provider [address] [place] [id number] documented as of this encounter
--- OUTSIDE RECORDS SUMMARY | 2022-02-16 08:41 | XMS_ITS | Encounter Summary ---
:1950 Author Organization [place] Address [address] [place] [address] Care Team Providers Name Role Phone No Ref-Primary, Physician Primary Care Provider [phone] Lino Radford DO Unavailable Wilian Castañeda [...] on filedocumented in this encounter Care Teams B Operator Relationship Specialty Start Date End Date No Ref-Primary, Physician PCP - General 07/15/20 Lino Radford DO Assigned PCP 08/26/20 [address] [place] [address] Wilian Castañeda MD Assigned Heart and Vascular 09/12/20 [address] [facility] Provider [address] [place] [address] documented as of this encounter
--- OUTSIDE RECORDS SUMMARY | 2022-02-16 08:42 | XMS_ITS | Encounter Summary ---
:1950 Author Organization [place] Address [address] [place] [address] Care Team Providers Name Role Phone No Ref-Primary, Physician Primary Care Provider [phone] Savanah Gaming PA-C Unavailable [phone] Encounter Details Date Type Department Care Team [...] on filedocumented in this encounter Care Teams Ladle Watcher Relationship Specialty Start Date End Date No Ref-Primary, Physician PCP - General 07/15/20 Savanah Gaming PA-C Assigned PCP 06/24/20 08/25/20 [address] [place] [address] documented as of this encounter
--- OUTSIDE RECORDS SUMMARY | 2022-02-16 08:42 | XMS_ITS | Encounter Summary ---
:1950 Author Organization [place] Address [address] [place] [address] Care Team Providers Name Role Phone No Ref-Primary, Physician Primary Care Provider [phone] Savanah Gaming PA-C Unavailable [phone] Encounter Details Date Type Department Care Team [...] filedocumented in this encounter Care Teams Licensed Veterinary Technician Relationship Specialty Start Date End Date No Ref-Primary, Physician PCP - General 07/15/20 Savanah Gaming PA-C Assigned PCP 06/24/20 08/25/20 [address] [place] [address] documented as of this encounter
--- OUTSIDE RECORDS SUMMARY | 2022-02-16 08:42 | XMS_ITS | Encounter Summary ---
:1950 Author Organization [place] Address Formerly [facility], [facility] [place] [address] Care Team Providers Name Role Phone No Ref-Primary, Physician Primary Care Provider [phone] Savanah Gaming PA-C Unavailable [phone] Reason for Visit Auth/Cert Specialty Diagnoses / Procedures Referred By Contact Refer red To Contact Gastroenterology Diagnoses Hx of colonic polyps Hx of colonic polyps [Z86.010] Rh Endoscopy Procedures HC COLONOSCOPY W/WO BRUSH/WASH COLONOSCOPY [address] [place] [address] Phone: Fax: Referral ID Status Reason Start Date Expiration Date Visits Requ ested Visits Authorized [id number] 1 1 Encounter Details Date Type Department Care Team Description 08/18/2020 Hospital Encounter M [facility] Hallie Rivera , Endoscopy Evy HOOVER [address] [address] [facility] [phone] [place], [place] [address] (Wo rk) Social History Tobacco Use Types [...] through Care Everywhere. Diverticulosis and Diverticulitis, Understanding (Portuguese)Diet, High-Fiber (Portuguese)Colon and Rectal Polyps, Understanding (Portuguese)documented in this encounter Medications at Time of [...] Component Value Ref Test Analysis Performed At [facility] Range Method Time Signature Copath Report Patient Name: MARLON BENTON MR#: [id number] Specimen #: [id number] Collected: 08/18/2020 Received: 08/18/2020 Reported: 08/19/2020 09:46 [...] this testing was completed at the [facility], with the professional compo nent performed at the [facility], [address] [place] [address] ??[phone] ([phone]) CPT Codes: A: 99130-LU0 B: 78313-RW0 COLLECTION SITE: Client: [facility] Location: [facility] (R) Specimen (Source) Anatomical Collection Method Collection Time Re ceived Time Location / / Volume Laterality Polyp LARGE INTESTINE 08/18/2020 1:23 PM PART / Unknown CDT Polyp LARGE INTESTINE 08/18/2020 1:32 PM (morphologic PART / Unknown CDT abnormality) [facility] Performing Organization Address City/State/ZIP Code Phon e Number COPATH COLONOSCOPY (08/18/2020 1:07 PM CDT) [facility] Method Time Signature COLONOSCOPY [facility] RAD IOLOGY RESULTS Patient Name: Marlon Benton ?Procedure Date: 08/18 1:07 PM ? Accou nt Number: [id number] Date of : 1950 ?Admit Type: Out patient Age: 70 ? Gender: Male Attending MD: Hallie gallardo MD ?? Total Sedation Time: 17_minutes continuous bedside 1:1 Instrument Name: 222 - Adult Colonoscope Procedure: ?Colonoscopy Indications: ?High ma sk colon cancer surveillance: Personal ?history of colonic po lyps Providers: ?Hallie Rivera MD (Doc [facility]) Referring MD: ? Medicines: ?Midazolam 2 [...] continuously. The ?Olympus Adult Colonoscope, Model # CF-MF845T, ?Endora # 222, SN # [id number] was introduced through ?the anus and advanced [...] Procedure Code(s): ? --- Professional --- ? 72615, Colonoscopy, flexible; with removal of tumor (s), polyp(s), or ? other lesion(s) by snare technique Diagnosis Code(s): ? --- Professional --- ? K63.5, Polyp of colon CPT copyright 2019 [employer]. All rights reserved. The codes documented in this report are prelimin tarah and upon forest nursery worker review may be revised to meet current compliance requirements. Electronically signed by Hallie Rivera MD Hallie Rivera MD 08/18/2020 1:41:27 PM I was physically present for the entire viewing portion of t he exam. Hallie Rivera MD Number of Addenda: 0 Note Initiated On: 08/18/2020 1:07 PM MRN: ?[id number] Procedure Date: ? 08/18/2020 1:07:30 PM Scope [...] For ordered IV doses 0.1-2mg give I FRONT END MECHANIC. Give each 0.4mg over 15 seconds in [...]
Post-procedure documented in this encounter Care Teams Youth Officer Relationship Specialty Start Date End Date No Ref-Primary, Physician PCP - General 07/15/20 Savanah Gaming PA-C Assigned PCP 06/24/20 08/25/20 [address] [place] [address] documented as of this encounter
--- OUTSIDE RECORDS SUMMARY | 2022-02-16 08:42 | XMS_ITS | Encounter Summary ---
:1950 Author Organization [place] Address [address] [place] [address] Care Team Providers Name Role Phone No Ref-Primary, Physician Primary Care Provider [phone] Lino Radford DO Unavailable Encounter Details [...] on filedocumented in this encounter Care Teams Can Machine Operator Relationship Specialty Start Date End Date No Ref-Primary, Physician PCP - General 07/15/20 Lino Radford DO Assigned PCP 08/26/20 [address] [place] [address] documented as of this encounter
--- OUTSIDE RECORDS SUMMARY | 2022-02-16 08:42 | XMS_ITS | Encounter Summary ---
:1950 Author Organization [place] Address [address] [place] [address] Care Team Providers Name Role Phone No Ref-Primary, Physician Primary Care Provider [phone] Savanah Gaming PA-C Unavailable [phone] Encounter Details Date Type Department Care Team Description 08/23/2020 Telephone [facility] No Ref-Primary, [place] Physician [address] [place] [address] Social History Tobacco [...] CDT Patient calls, Had EKG done at [facility] 08/09/2020, per office notes Discussed with pt [...] on filedocumented in this encounter Care Teams Information Technology Auditor Relationship Specialty Start Date End Date No Ref-Primary, Physician PCP - General 07/15/20 Savanah Gaming PA-C Assigned PCP 06/24/20 08/25/20 [address] [place] [address] documented as of this encounter
--- OUTSIDE RECORDS SUMMARY | 2022-02-16 08:42 | XMS_ITS | Encounter Summary ---
:1950 Author Organization [place] Address [facility] [place] [address] Care Team Providers Name Role Phone No Ref-Primary, Physician Primary Care Provider [phone] Savanah Gaming PA-C Unavailable [phone] Reason for Visit Auth/Cert Specialty Diagnoses / Procedures Referred By Contact Refer red To Contact Gastroenterology Diagnoses Hx of colonic polyps Hx of colonic polyps [Z86.010] Endoscopy Procedures HC COLONOSCOPY W/WO BRUSH/WASH COLONOSCOPY [address] [place] [address] Phone: Fax: Referral ID Status Reason Start Date Expiration Date Visits Requ ested Visits Authorized [id number] 1 1 Encounter Details Date Type Department Care Team Description 08/18/[address] [facility] Hallie Rivera, COLO NOSCOPY with Endoscopy Evy HOOVER polypectomies USING hot [address] [place], [place] GASTROINTESTINAL [address] [address] [phone] [place], [place] [id number] Surgery Details Date/Time Status Location OR Service [...] through Care Everywhere. Diverticulosis and Diverticulitis, Understanding (Gabonese)Diet, High-Fiber (Gabonese)Colon and Rectal Polyps, Understanding (Gabonese)documented in this encounter Medications at Time of [...] Value Ref Test Analysis Performed At [facility] Range Method Time Signature Copath Report Patient Name: MARLON BENTON MR#: [id number] Specimen #: [id number] Collected: 08/18/2020 Received: 08/18/2020 Reported: 08/19/2020 09:46 [...] of this testing was completed at the [facility], with the professional compo nent performed at the [facility], [address] [place] [address] ??55 [phone] ([phone]) CPT Codes: A: 21356-HU1 B: 65098-LZ9 COLLECTION SITE: Client: [facility] Location: [facility] (R) Specimen (Source) Anatomical Collection Method Collection Time Re ceived Time Location / / Volume Laterality Polyp LARGE INTESTINE 08/18/2020 1:23 PM PART / Unknown CDT Polyp LARGE INTESTINE 08/18/2020 1:32 PM (morphologic PART / Unknown CDT abnormality) Hallie OROZCO - PATRIC Performing Organization Address City/State/ZIP Code Phon e Number COPATH COLONOSCOPY (08/18/2020 1:07 PM CDT) [facility] Method Time Signature COLONOSCOPY [facility] RAD IOLOGY RESULTS Patient Name: Marlon Benton ?Procedure Date: 08/18 1:07 PM ? Accou nt Number: [id number] Date of : 1950 ?Admit Type: Out [...] continuously. The ?Olympus Adult Colonoscope, Model # CF-[id number], ?Endora # 222, SN # [id number] was introduced through ?the anus and advanced [...] Procedure Code(s): ? --- Professional --- ? 16504, Colonoscopy, flexible; with removal of tumor (s), polyp(s), or ? other lesion(s) by snare technique Diagnosis Code(s): ? --- Professional --- ? K63.5, Polyp of colon CPT copyright 2019 [employer]. All rights reserved. The codes documented in this report are prelimin tarah and upon director wholesale review may be revised to meet current compliance requirements. Electronically signed by Hallie Rivera MD Hallie Rivera MD 08/18/2020 1:41:27 PM I was physically present for the entire viewing portion of t he exam. Hallie Rivera MD Number of Addenda: 0 Note Initiated On: 08/18/2020 1:07 PM MRN: ?[id number] Procedure Date: ? 08/18/2020 1:07:30 PM Scope [...] For ordered IV doses 0.1-2mg give I ANESTHESIA TECH. Give each 0.4mg over 15 seconds in [...]
Post-procedure documented in this encounter Care Teams Banding Machine Operator Relationship Specialty Start Date End Date No Ref-Primary, Physician PCP - General 07/15/20 Savanah Gaming PA-C Assigned PCP 06/24/20 08/25/20 [address] [place] [address] documented as of this encounter
--- OUTSIDE RECORDS SUMMARY | 2022-02-16 08:42 | XMS_ITS | Encounter Summary ---
:1950 Author Organization [place] Address [address] [place] [address] Care Team Providers Name Role Phone No Ref-Primary, Physician Primary Care Provider [phone] Lino Radford DO Unavailable Reason for Visit Reason Onset Date Comments Appointment 08/31/2020 Dr Castañeda 09/01 Encounter Details Date Type Department Care Team Description 08/31/2020 Telephone [facility] Heart Teresa Mesa A ppointment (Dr [facility] Lizzy RN 09/01) [address] [facility] [address] [place] [address] Social History Tobacco Use Types Packs/Day Years [...] who stated there are no records from [place] as he did not seek medical care regarding his heart arrhythmia there. Alan 820 am Telephone Encounter - Teresa Mesa RN - 08/31/2020 1:06 PM CDT LM for pt to call back to see if he has any records in [place] that may be wanted for OV with Dr Castañeda. JNelsonRN documented in this encounter Plan of Treatment Not on filedocumented as of this encounter Visit Diagnoses Not on filedocumented in this encounter Care Teams Business Test Analyst Relationship Specialty Start Date End Date No Ref-Primary, Physician PCP - General 07/15/20 Lino Radford DO Assigned PCP 08/26/20 [address] [place] [address] documented as of this encounter
--- OUTSIDE RECORDS SUMMARY | 2022-02-16 08:42 | XMS_ITS | Encounter Summary ---
:1950 Author Organization [place] Address [address] [place] [address] Care Team Providers Name Role Phone No Ref-Primary, Physician Primary Care Provider [phone] Savanah Gaming PA-C Unavailable [phone] Encounter Details Date Type Department Care Team [...] on filedocumented in this encounter Care Teams Piper Installer Relationship Specialty Start Date End Date No Ref-Primary, Physician PCP - General 07/15/20 Savanah Gaming PA-C Assigned PCP 06/24/20 08/25/20 [address] [place] [address] documented as of this encounter
--- OUTSIDE RECORDS SUMMARY | 2022-02-16 08:42 | XMS_ITS | Encounter Summary ---
:1950 Author Organization [place] Address [address] [place] [address]. [place] [address] Care Team Providers Name Role Phone No Ref-Primary, Physician Primary Care Provider [phone] Savanah Gaming PA-C Unavailable [phone] Reason for Referral CV Cardio consult (Routine) - Closed Specialty Diagnoses / Procedures Referred By Contact Refer red To Contact Cardiovascular Disease Diagnoses Chronic atrial fibrillation (H) Lino Radford DO [facility] Care [address] [facility] [address] [place] [address] [address] [place] [address] Phone: Fax: Referral ID Status Reason Start Date Expiration Date Visits Requ ested Visits Authorized [id number] Closed 08/23/2020 08/23/2021 1 1 Reason for Visit Reason Comments Urgent Care f/u Atrial Fib Encounter Details Date Type Department Care Team Description 08/23/2020 Office Visit [facility] Lino Radford Chronic atrial fibrillation (H); Clinic [facility] Screening for hyperlipidemia; [address] [facility] [address] [facility] health care; [place], [place] Need for Td v accine [address] [phone] Social History Tobacco Use Types Packs/Day Years [...] out. I will review you studies via [employer]. Someone should be calling you over the next 2 days regarding the referral. Thank you for choosing [facility] today for your health care needs. [facility] transforming primary care At [facility], we???re constantly working to improve how we serve our patients and communities. We???re currently making changes to the way we deliver care. Most of the work is behind the scenes, but you???ll benefit from our efforts to make it easier and more convenient to stay connected to [facility] and your care team to maintain your optimal health. Benefits of a primary care provider If you don???t have a designated primary care provider yet, we encourage you to get to know our careteam online, and find a provider you???d like to see. Most of our providers have a short video on their online provider page. Visit [email or web address] to explore our providers and locations. Benefits [...] to your health records and care team [employer] is our online tool that makes it easy to see your health care information and communicate with your care team. [employer] allows you to: ??? View your health maintenance plan so you know when you???re due for a preventive screening ??? Send secure messages to your care team ??? View your health history and visit summaries ??? Schedule appointments ??? Complete questionnaires and eCheck-in before appointments ??? Get care from your provider with an e-visit ??? View and pay your bill Sign up at [email or web address]. Once you have an account, you also [...] your medication, an E-visit is completed through [employer] and your provider will respond within one business day. In-person ??? Clinic appointments: Schedule an appointment at a clinic close to you anytime online at [email or web address] or call [facility]. Urgent Care: Visit one of our Urgent Care locations throughout the [facility]. View locations and estimated wait times at [email or web address]. Patient Education Understanding Atrial Fibrillation ?? An [...] reviewed this educational content on 07/01/2018 ?? [phone] The [employer]. All rights reserved. This information is not [...] should cut out caffeine. ?? Don't take yqhh-wrr-rrjvuhe medicines that have caffeine in them. Also avoid medicines with pseudoephedrine. ?? Let your doctor know what medicines you take, including prescription and meql-qoc-lxskypt medicines, as well as any supplements. They [...] your heartbeat, or an unusually fast heartbeat niid.to last reviewed this educational content on 07/31/2018 ?? [phone] The [employer]. All rights reserved. This information is not [...] 11/23/2020) for Routine preventive. Lino Radford DO [facility] Dinah Pat is a 70 year old who presents for the following health issues HPI ED/UC Followup: Facility: [facility] Date of visit: 08/09/20 Reason for visit: lightheadedness Current Status: stable- wants to schedule heart test Review of Systems Patient is seen for primary reason of wanting a referral to cardiology to address his atrial fibrillation. He states he has had atrial fibrillation in the past prior to moving to [place] from [place]. He is unsure exactly what it was called, but may have been paroxysmal atrial fibrillation. He tried to go for a walk a couple days ago, and he got dizzy, so he decided he needed to get his Afib treated. On my calculation during exam, he scores a 1 on [id number] risk stratification. Considering this, I told him [...] Name Type Priority Associated Diagnoses Order S [facility] CARDIOLOGY EVAL ADULT Referral Routine Chronic atrial [...] (Td) documented in this encounter Care Teams Fire Sprinkler Installer Relationship Specialty Start Date End Date No Ref-Primary, Physician PCP - General 07/15/20 Savanah Gaming PA-C Assigned PCP 06/24/20 08/25/20 [address] [place] [address] documented as of this encounter
--- OUTSIDE RECORDS SUMMARY | 2022-02-16 08:42 | XMS_ITS | Encounter Summary ---
:1950 Author Organization [place] Address [facility] [place] [address] Care Team Providers Name Role Phone No Ref-Primary, Physician Primary Care Provider [phone] Savanah Gaming PA-C Unavailable [phone] Encounter Details Date Type Department Care Team Description 08/14/[address] [facility] Francisco Peguero for [facility] Laboratory MD Odalys screening for other [address] [place] viral diseases [place], [place] GASTROINTESTINA [address] L [phone] [place] [id number] Social History Tobacco Use Types Packs/Day Years [...] (Coronavirus) by PCR (08/14/2020 8:50 AM CDT) [facility] Method Time Signature SARS-CoV-2 Nasopharyngeal 08/14/2020 [facility] OF Virus 4:36 PM CDT [facility] SARS-CoV-2 NEGATIVE 08/14/2020 [facility] PCR Result 4:36 PM T [facility] Comment: SARS-CoV2 (COVID-19) RNA not de tected, presumed negative. SARS-CoV-2 PCR Testing was performed using the Xpert Xpress SARS-CoV-2 Assay on the [employer] Gene-Xpert 08/14/2020 4:36 PM [facility] Comment Instrument Systems. Addition al information about this Emergency Use Authorization (EUA) [facility] assay can be found via the Lab Guide. [place] Comment: This test should be ordered for [...] COVID-19. This test was validated by the [facility] Infectious Diseases Diagnostic Laboratory. This laboratory [...] Organization Address City/State/ZIP Code Phon e Number [facility] [address] [place] [address] [facility] Asymptomatic COVID-19 Virus (Coronavirus) by PCR (08/14/2020 8:50 AM CDT) Component Value Ref Test Analysis Performed At [facility] Range Method Time Signature COVID-19 Nasopharyngeal 08/14/2020 [place] Virus PCR to 8:51 AM CDT [facility] U [facility]PITAL Source COVID-19 Test received-See 08/14/2020 INFECTIOUS Virus PCR to reflex to IDDL 1:[address] PM [address] DISEASES [facility] - test SARS CoV2 DIAGNOSTIC Result (COVID-19) Virus LABORATORY, RT-PCR [facility] Specimen (Source) Anatomical Collection Method Collection Time Re ceived Time Location / / Volume Laterality Specimen from 08/14/2020 8:50 08/14/2020 nasopharyngeal AM CDT 8:51 AM CDT structure (specimen) Francisco Peguero MD LAB - MICRO GENERAL ORDERABL ES Performing Organization Address City/State/ZIP Code Phon e Number INFECTIOUS DISEASES [address] [place] [address] DIAGNOSTIC LABORATORY, [facility] [address] [phone] documented in this encounter Visit Diagnoses Diagnosis Encounter for screening for other viral diseases documented in this encounter Care Teams Relay Motorman Relationship Specialty Start Date End Date No Ref-Primary, Physician PCP - General 07/15/20 Savanah Gaming PA-C Assigned PCP 06/24/20 08/25/20 [address] [place] [address] documented as of this encounter
--- OUTSIDE RECORDS SUMMARY | 2022-02-16 08:42 | XMS_ITS | Encounter Summary ---
:1950 Author Organization [place] Address [address] [place] [address] Care Team Providers Name Role Phone No Ref-Primary, Physician Primary Care Provider [phone] Savanah Gaming-Michael Unavailable [phone] Reason for Visit Reason Comments Rectal Bleeding Encounter Details Date Type Department Care Team Description 07/15/2020 Emergency [facility] Jenniefr Arita, Ur inary tract infection without hematuria, site unspecified; [facility] Emergency DO Hyperkalemia; Dept EMERGENCY PHYSICIANS Rectal bleeding; [address] Diverticulosis of large intestine with h [place], [place] [address] [address] [place] [address] (Wo rk) Social History Tobacco Use Types [...] Care Everywhere. Urinary Tract Infections (UTIs), Understanding (Turkmen)Rectal Bleeding, Evaluating and Treating (Turkmen)documented in this encounter Medications at Time of [...] without arabella blood/melena. No external hemorrhoids/palpable mass. Curriculum And Assessment Director RN Austin MSK: No calf tenderness or swelling. Neuro: Alert. Follows simple commands. Skin: Skin is warm and dry. No rash noted. Psychiatric: Normal affect. Emergency Department Course ECG: ECG taken at 0555, ECG read at 0558 Sinus tachycardia Left anterior fascicular block Septal infarct, age undetermined ST & T wave abnormality, consider lateral ischemia Abnormal ECG Rate 116 bpm. NV interval * ms. QRS duration 124 ms. [...] provided today as patient [place] moved to [place]. I will dispo home withantibiotics. We reviewed [...] observations and the provider's statements to me. [facility] EMERGENCY DEPT Jennifer Arita DO 07/15/20 0620 documented in this encounter Miscellaneous Notes Result Encounter Note - Mejia Dowling RN - 07/15/2020 6:10 AM CDT [facility] Emergency Dept discharge antibiotic (if prescribed): Cephalexin (Keflex) 500 mg capsule, 1 capsule (500 mg) by mouth 2 times daily for 7 days. Date of Rx (if applicable): 07/15/20 No changes in treatment per [facility] ED Lab Result Urine culture protocol. Result [...] timesdaily for 7 days. Treatment recommendations per [facility] ED Lab Result Urine Culture protocol. documented [...] EKG 12 lead (07/15/2020 5:55 AM CDT) [facility] gist Method Time Signature Interpretation ECG [...] EXAM: CT ABDOMEN PELVIS W CONTRAST LOCATION: [facility] DATE/TIME: 07/15/2020 5:08 AM INDICATION: Abdominal [...] EXAM: CT ABDOMEN PELVIS W CONTRAST LOCATION: [facility] DATE/TIME: 07/15/2020 5:08 AM INDICATION: Abdominal [...] Component Value Ref Test Analysis Performed At [facility] Range Method Time Signature Specimen Midstream Urine INFECTIOUS Description DISEASES [facility], [facility] Special Specimen received 07/15/2020 INFECTIOUS Requests in preservative 8:41 AM CDT DISEASES [facility], [facility] Culture Micro >100,000 colonies/mL 07/16/2020 INFE CTIOUS mixed urogenital cristian 9:44 AM CDT DISEA SES Susceptibility testing not routinely done DIAGNOSTIC LABORATORY, [facility] Specimen (Source) Anatomical Collection Method Collection Time Re ceived Time Location / / Volume Laterality Examination of 07/15/2020 3:58 07/15/2020 5:01 midstream urine AM CDT AM CDT specimen (procedure) Jennifer Arita DO LAB - MICRO GENERAL ORDERABL ES Performing Organization Address City/State/ZIP Code Phon e Number INFECTIOUS DISEASES DIAGNOSTIC [address] [facility], [place] [address] LABORATORY, [facility] (ABNORMAL) Stool: occult blood (07/15/2020 3:58 AM CDT) [facility] Method [place] Signature Occult Blood Positive (A) NEG^Negat 07/15/2020 [place] husam 4:23 AM [facility] Specimen Anatomical Collection Method Collection Time Receive d Time (Source) Location / / Volume Laterality Stool 07/15/2020 3:58 AM 4:21 CDT AM CDT Jennifer Arita DO LAB - STOOLS ORDERABLES Performing Organization Address City/State/ZIP [facility] Phon e Number [facility] [address] [place], [place] [address] [facility] [address] [place] [address] [address] [phone] (ABNORMAL) UA with Microscopic (07/15/2020 3:58 AM CDT) [facility] Method Time Signature Color Urine Yellow 07/15/2020 [place] 4:37 AM [facility] Appearance Urine Cloudy 07/15/2020 [facility] 4:37 AM [facility] Glucose Urine Negative NEG^Negat 07/15/2020 [facility] [place] mg/dL 4:37 AM [facility] Bilirubin Urine Negative NEG^Negat 07/15/2020 [facility] husam 4:37 AM [facility] Ketones Urine 40 (A) NEG^Negat 07/15/2020 [facility] husam mg/dL 4:37 AM [facility] Specific [place] 1.016 1.003 - 07/15/2020 [facility] Urine 1.035 4:37 AM [facility] Blood Urine Moderate (A) NEG^Negat 07/15/2020 [facility] husam 4:37 AM [facility] pH Urine 6.0 5.0 - 7.0 07/15/2020 [facility] pH 4:37 AM [facility] Protein Albumin 200 (A) NEG^Negat 07/15/2020 [facility] Urine [place] mg/dL 4:37 AM [facility] Urobilinogen Normal 0.0 - 2.0 07/15/2020 [facility] mg/dL mg/dL 4:37 AM [facility] Nitrite Urine Negative NEG^Negat 07/15/2020 [facility] husam 4:37 AM [facility] Leukocyte Large (A) NEG^Negat 07/15/2020 [facility] Esterase Urine husam 4:37 AM [facility] Source Midstream 07/15/2020 [facility] Urine 3:58 AM [facility] WBC Urine >182 (H) 0 - 5 07/15/2020 [facility] /HPF 4:37 AM [facility] RBC Urine 30 (H) 0 - 2 07/15/2020 [facility] /HPF 4:37 AM [facility] WBC Clumps Present (A) NEG^Negat 07/15/2020 [facility] husam /HPF 4:37 AM [facility] Bacteria Urine Moderate (A) NEG^Negat 07/15/2020 [facility] husam /HPF 4:37 AM [facility] Squamous 3 (H) 0 - 1 07/15/2020 [facility] Epithelial /HPF /HPF 4:37 AM [facility] Mucous Urine Present (A) NEG^Negat 07/15/2020 [place] husam /LPF 4:37 AM [facility] Specimen (Source) Anatomical Collection Method Collection Time Re ceived Time Location / / Volume Laterality Examination of URINE SPECIMEN 07/15/2020 3:58 07/16/19 21 4:21 midstream urine OBTAINED BY CLEAN AM CDT AM CDT specimen CATCH PROCEDURE / (procedure) Unknown Jennifer Arita DO LAB - URINE ORDERABLES Performing Organization Address City/[facility] Phon e Number [facility] [address] [place], [place] [address] [facility] [address] [place], [place] [address], [facility] [phone] INR (07/15/2020 2:20 AM CDT) athologist Signature INR 1.10 0.86 - 1.14 07/15/2020 [facility] 3:53 AM CDT HOSPITAL Specimen Anatomical Collection Method Collection Time Receive d Time (Source) Location / / Volume Laterality 07/15/2020 2:20 AM 2:27 CDT AM CDT Jennifer Arita DO LAB - BLOOD ORDERABLES Performing Organization Address City/[facility] Phon e Number [facility] [address] [place], [place] [address] [facility] [address] [place], [place] [address], [facility] [phone] (ABNORMAL) Comprehensive metabolic panel (07/15/2020 2:20 AM CDT) athologist Signature Sodium 140 133 - 144 07/15/2020 [place] mmol/L 4:22 AM CDT [facility] Potassium 5.7 (H) 3.4 - 5.3 07/15/2020 [place] mmol/L 4:22 AM T [facility] Chloride 111 (H) 94 - 109 07/15/2020 [place] mmol/L 4:22 AM T [facility] Carbon Dioxide 24 20 - 32 07/15/2020 [place] mmol/L 4:22 AM [facility] Anion Gap 5 3 - 14 07/15/2020 [place] mmol/L 4:22 AM [facility] Glucose 110 (H) 70 - 99 07/15/2020 [facility] mg/dL 4:22 AM [facility] Urea Nitrogen 27 7 - 30 07/15/2020 [place] mg/dL 4:22 AM [facility] Creatinine 0.72 0.66 - 07/15/2020 [place] 1.25 mg/dL 4:22 AM [facility] GFR Estimate >90 >60 07/15/2020 [place] mL/min/{1. 4:[address] [facility] 73_m2} HOSPITAL Comment: Non GFR Calc Starting 03/19/2018, serum creatinine ba sed estimated GFR (eGFR) will be calculated using the Chronic Kidney Dise [facility] Epidemiology Collaboration (CKD-EPI) equation. GFR Estimate If >90 >60 mL/min/{1.73_m2} 07/15/2020 4: 22 AM [facility] Comment: GFR Calc Starting 03/19/2018, serum creatinine ba sed estimated GFR (eGFR) will be calculated using the Chronic Kidney Dise [facility] Epidemiology Collaboration (CKD-EPI) equation. Calcium 8.9 8.5 - 10.1 07/15/2020 4:22 AM [facility] mg/dL [facility] Bilirubin Total 1.4 (H) 0.2 - 1.3 mg/dL 07/15/2020 4:22 AM [facility] Albumin 3.0 (L) 3.4 - 5.0 g/dL 07/15/2020 4:22 AM [facility] Protein Total 7.1 6.8 - 8.8 g/dL 07/15/2020 4:22 AM [facility] Alkaline Phosphatase 80 40 - 150 U/L 07/15/2020 4:22 AM [facility] ALT 26 0 - 70 U/L 07/15/2020 4:22 AM [facility] AST 43 0 - 45 U/L 07/15/2020 4:22 AM [facility] Comment: Specimen is hemolyzed which can falsely elevate AST. Analysis of a non-hemolyzed specimen may result in a l ower value. Specimen Anatomical Collection Method Collection Time Receive d Time (Source) Location / / Volume Laterality 07/15/2020 2:20 AM 2:27 CDT AM CDT Jennifer Arita DO LAB - BLOOD ORDERABLES Performing Organization Address City/State/ZIP Code Phon e Number M [facility] [address] [place] [address] [phone] [facility] [address] [place] [address], [place] [phone] (ABNORMAL) CBC with platelets differential (07/15/2020 2:20 AM CDT) [facility] Method Time Signature WBC 11.7 (H) 4.0 - 07/15/2020 [facility] 11.0 2:30 AM [facility] 10e9/L [facility] RBC Count 5.02 4.4 - 5.9 07/15/2020 [facility] 10e12/L 2:30 AM [facility] Hemoglobin 15.8 13.3 - 07/15/2020 [facility] 17.7 g/dL 2:30 AM [facility] Hematocrit 48.2 40.0 - 07/15/2020 [facility] 53.0 % 2:30 AM [facility] MCV 96 78 - 100 07/15/2020 [facility] fl 2:30 AM [facility] MCH 31.5 26.5 - 07/15/2020 [facility] 33.0 pg 2:30 AM [facility] MCHC 32.8 31.5 - 07/15/2020 [facility] 36.5 g/dL 2:30 AM [facility] RDW 13.7 10.0 - 07/15/2020 [facility] 15.0 % 2:30 AM [facility] Platelet Count 241 150 - 450 07/15/2020 [facility] 10e9/L 2:30 AM [facility] Diff Method Automated 07/15/2020 [facility] Method 2:30 AM [facility] % Neutrophils 75.5 % 07/15/2020 [facility] 2:30 AM [facility] % Lymphocytes 13.7 % 07/15/2020 [facility] 2:30 AM [facility] % Monocytes 8.3 % 07/15/2020 [facility] 2:30 AM [facility] % Eosinophils 1.6 % 07/15/2020 [facility] 2:30 AM [facility] % Basophils 0.5 % 07/15/2020 [facility] 2:30 AM [facility] % Immature 0.4 % 07/15/2020 [facility] Granulocytes 2:30 AM [facility] Nucleated RBCs 0 0 /100 07/15/2020 [facility] 2:30 AM [facility] Absolute 8.8 (H) 1.6 - 8.3 07/15/2020 [place] Neutrophil 10e9/L 2:30 AM [facility] Absolute 1.6 0.8 - 5.3 07/15/2020 [place] Lymphocytes 10e9/L 2:30 AM [facility] Absolute 1.0 0.0 - 1.3 07/15/2020 [facility] Monocytes 10e9/L 2:30 AM [facility] Absolute 0.2 0.0 - 0.7 07/15/2020 [facility] Eosinophils 10e9/L 2:30 AM [facility] Absolute 0.1 0.0 - 0.2 07/15/2020 [place] Basophils 10e9/L 2:30 AM [facility] Abs Immature 0.1 0 - 0.4 07/15/2020 [place] Granulocytes 10e9/L 2:30 AM [facility] Absolute 0.0 07/15/2020 [place] Nucleated RBC 2:30 AM [facility] Specimen Anatomical Collection Method Collection Time Receive d Time (Source) Location / / Volume Laterality Blood 07/15/2020 2:20 AM 2:27 CDT AM CDT Jennifer Artia DO LAB - BLOOD ORDERABLES Performing Organization Address City/State/ZIP Code Phon e Number [facility] [address] [place], [place] [address] [facility] [address] [phone] documented in this encounter Visit Diagnoses Diagnosis [...] dose documented in this encounter Care Teams Apartment Leasing Manager Relationship Specialty Start Date End Date No Ref-Primary, Physician PCP - General 07/15/20 Savanah Gaming PA-C Assigned PCP 06/24/20 08/25/20 [id number] [place] [address] documented as of this encounter
--- OUTSIDE RECORDS SUMMARY | 2022-02-16 08:42 | XMS_ITS | Encounter Summary ---
:1950 Author Organization [place] Address [facility] [place] [address] Care Team Providers Name Role Phone No Ref-Primary, Physician Primary Care Provider [phone] Savanah Gaming PA-C Unavailable [phone] Reason for Visit Reason Comments UTI Encounter Details Date Type Department Care Team Description 08/09/2020 Office Visit [facility] Earnestine Glaser, Dysuria (Primary Dx); Urgent Care Irma rosenberg [place] Nonspecific finding on examination of ur ine; [address] Fatigue, unspecified type; [place], [place] [address] Atrial fibrillation, unspecified type (H ) [address] [place], [place] [phone] [address] Social History Tobacco Use Types Packs/Day [...] - *UA reflex to Microscopic and Culture ([place] and [facility] (except [place] and [place]) - Urine Microscopic - Urine Culture Aerobic [...] - 144 08/09/2020 [facility] mmol/L 2:24 PM [facility] Potassium 4.2 3.4 - 5.3 08/09/2020 [facility] mmol/L 2:24 PM [facility] Chloride 108 94 - 109 08/09/2020 [facility] mmol/L 2:24 PM [facility] Carbon Dioxide 22 20 - 32 08/09/2020 [place] mmol/L 2:26 PM [facility] Anion Gap 9 3 - 14 08/09/2020 [place] mmol/L 2:26 PM [facility] Glucose 125 (H) 70 - 99 08/09/2020 [place] mg/dL 2:26 PM [facility] Urea Nitrogen 24 7 - 30 08/09/2020 [place] mg/dL 2:26 PM [facility] Creatinine 0.87 0.66 - 08/09/2020 [facility] 1.25 mg/dL 2:26 PM [facility] GFR Estimate 87 >60 08/09/2020 [place] mL/min/{1. 2:26 PM [facility] 73_m2} HOSPITAL Comment: Non GFR Calc Starting 03/19/2018, serum creatinine ba sed estimated GFR (eGFR) will be calculated using the Chronic Kidney Dise [facility] Epidemiology Collaboration (CKD-EPI) equation. GFR Estimate If >90 >60 mL/min/{1.73_m2} 08/09/2020 2: 26 PM [facility] Comment: GFR Calc Starting 03/19/2018, serum creatinine ba sed estimated GFR (eGFR) will be calculated using the Chronic Kidney Dise [facility] Epidemiology Collaboration (CKD-EPI) equation. Calcium 9.5 8.5 - 10.1 08/09/2020 2:26 PM [facility] mg/dL [facility] Bilirubin Total 1.8 (H) 0.2 - 1.3 mg/dL 08/09/2020 2:30 PM [facility] Albumin 3.3 (L) 3.4 - 5.0 g/dL 08/09/2020 2:[address] [facility] Protein Total 7.3 6.8 - 8.8 g/dL 08/09/2020 2:30 PM [facility] Alkaline Phosphatase 90 40 - 150 U/L 08/09/2020 2:30 PM [facility] ALT 22 0 - 70 U/L 08/09/2020 2:30 PM [facility] AST 11 0 - 45 U/L 08/09/2020 2:30 PM [facility] R IDGES CDT HOSPITAL Specimen Anatomical Collection Method Collection Time Receive d Time (Source) Location / / Volume Laterality Blood 08/09/2020 12:20 08/09/2020 PM CDT 12:21 PM CDT Earnestine Glaser MD LAB - BLOOD ORDERABLES Performing Organization Address City/State/ZIP Code Phon e Number M [facility] [address] [place], [place] [address] [facility] [address] [phone] CBC with platelets and differential (08/09/2020 12:20 PM CDT) [facility] Method Time Signature WBC 10.7 4.0 - 08/09/2020 [facility] 11.0 2:18 PM CDT CLINICS 10e9/L [place] RBC Count 5.53 4.4 - 5.9 08/09/2020 [facility] 10e12/L 2:18 PM [facility]T [facility] [place] Hemoglobin 16.8 13.3 - 08/09/2020 [facility] 17.7 g/dL 2:18 PM CDT [facility] [place] Hematocrit 50.8 40.0 - 08/09/2020 [facility] 53.0 % 2:18 PM CDT [facility] [place] MCV 92 78 - 100 08/09/2020 [facility] fl 2:18 PM CDT [facility] [place] MCH 30.4 26.5 - 08/09/2020 [facility] 33.0 pg 2:18 PM CDT [facility] [place] MCHC 33.1 31.5 - 08/09/2020 [facility] 36.5 g/dL 2:18 PM CDT [facility] [place] RDW 14.4 10.0 - 08/09/2020 [facility] 15.0 % 2:18 PM CDT [facility] [place] Platelet Count 196 150 - 450 08/09/2020 [facility] 10e9/L 2:18 PM CDT [facility] [place] % Neutrophils 72.2 % 08/09/2020 [facility] 2:18 PM CDT [facility] [place] % Lymphocytes 16.6 % 08/09/2020 [facility] 2:18 PM CDT [facility] [place] % Monocytes 9.7 % 08/09/2020 [facility] 2:18 PM CDT [facility] [place] % Eosinophils 1.3 % 08/09/2020 [place] 2:18 PM [facility] % Basophils 0.2 % 08/09/2020 [place] 2:18 PM [facility] Absolute 7.7 1.6 - 8.3 08/09/2020 [place] Neutrophil 10e9/L 2:18 PM [facility]T [facility] Absolute 1.8 0.8 - 5.3 08/09/2020 [place] Lymphocytes 10e9/L 2:18 PM [facility]T [facility] Absolute 1.0 0.0 - 1.3 08/09/2020 [place] Monocytes 10e9/L 2:18 PM CDT [facility] Absolute 0.1 0.0 - 0.7 08/09/2020 [place] Eosinophils 10e9/L 2:18 PM CDT [facility] Absolute 0.0 0.0 - 0.2 08/09/2020 [place] Basophils 10e9/L 2:18 PM [facility]T [facility] Diff Method Automated 08/09/2020 [place] Method 2:18 PM CDT [facility] Specimen Anatomical Collection Method Collection Time Receive d Time (Source) Location / / Volume Laterality Blood 08/09/2020 12:20 08/09/2020 PM CDT 12:21 PM CDT Earnestine Glaser MD LAB - BLOOD ORDERABLES Performing Organization Address City/State/ZIP Code Phon e Number [facility] [address] [place] [address] EKG 12-lead complete w/read - Clinics (08/09/2020 12:01 PM CDT) Narrative This result has an attachment that is no t available. Earnestine Glaser MD ECG ORDERABLES Urine Culture Aerobic Bacterial (08/09/2020 10:54 AM CDT) Component Value Ref Test Analysis Performed At [facility] Range Method Time Signature Specimen Midstream Urine INFECTIOUS Description DISEASES DIAGNOSTIC LABORATORY, [facility] Culture Micro 50,000 to 100,000 colonies/mL 2020 INFECTIOUS mixed urogenital cristian 10:03 PM DISEASE S Susceptibility testing not routinely done CDT DIAGNOSTIC LABORATORY, [facility] Specimen (Source) Anatomical Collection Method Collection Time Re ceived Time Location / / Volume Laterality Examination of 08/09/2020 10:54 midstream urine AM CDT 11:28 AM CDT specimen (procedure) Earnestine Glaser MD LAB - MICRO GENERAL ORDERABL ES Performing Organization Address City/State/ZIP Code Phon e Number INFECTIOUS DISEASES DIAGNOSTIC [address] [place] [address] LABORATORY, [facility] (ABNORMAL) Urine Microscopic (08/09/2020 10:54 AM CDT) Patholo gist Method Time Signature WBC Urine >100 (A) OTO5^0 - 08/09/2020 [place] 5 /HPF 11:15 AM CDT [facility] RBC Urine 2-5 (A) OTO2^O - 08/09/2020 [place] 2 /HPF 11:15 AM CDT [facility] Squamous Few FEW^Few 08/09/2020 [place] Epithelial /LPF 11:15 AM CDT CLINICS /LPF Urine [place] Bacteria Urine Moderate (A) NEG^Negat 08/09/2020 [place] husam /HPF 11:15 AM CDT [facility] Specimen Anatomical Collection Method Collection Time Receive d Time (Source) Location / / Volume Laterality 08/09/2020 10:54 08/09/2020 AM CDT 10:55 AM CDT Earnestine Glaser MD LAB - URINE ORDERABLES Performing Organization Address City/[facility] Code Phon e Number [facility] [id number] [place] [address] (ABNORMAL) *UA reflex to Microscopic and Culture ([place] and [facility] (except [place] and[place]) (08/09/2020 10:54 AM CDT) [facility] [employer] Method Time Signature Color Urine Yellow 08/09/2020 [place] 11:15 AM CDT [facility] Appearance Clear 08/09/2020 [place] Urine 11:15 AM CDT [facility] Glucose Urine Negative NEG^Negat 08/09/2020 [place] mg/dL 11:15 AM CDT [facility] Bilirubin Moderate (A) NEG^Negat 08/09/2020 [place] Urine husam 11:15 AM CDT [facility] Comment: This is an unconfirmed screenin g test result. A positive result may be false. Ketones Urine >=80 (A) NEG^Negative mg/dL 08/09/2020 11:15 [place] AM CDT [facility] [place] Specific [place] >1.030 1.003 - 1.035 08/09/2020 11:15 [facility] Urine AM CDT [facility] [place] Blood Urine Large (A) NEG^Negative 08/09/2020 11:15 [place] AM CDT [facility] [place] pH Urine 5.5 5.0 - 7.0 pH 08/09/2020 11:15 [place] AM CDT [facility] [place] Protein Albumin >=300 (A) NEG^Negative mg/dL 08/09/2020 11:1 5 [place] Urine AM CDT [facility] [place] Urobilinogen Urine 1.0 0.2 - 1.0 EU/dL 08/09/2020 11:1 5 [place] AM CDT [facility] [place] Nitrite Urine Negative NEG^Negative 08/09/2020 11:15 [facility] AM CDT [facility] [place] Leukocyte Esterase Large (A) NEG^Negative 08/09/2020 11:15 [facility] Urine AM CDT [facility] [place] Source Midstream Urine 08/09/2020 10:55 [facility] W AM CDT [facility] [place] Specimen (Source) Anatomical Collection Method Collection Time Re ceived Time Location / / Volume Laterality Examination of 08/09/2020 10:54 midstream urine AM CDT 10:55 AM CDT specimen (procedure) Earnestine Glaser MD LAB - URINE ORDERABLES Performing Organization Address City/State/ZIP Code Phon e Number [facility] [address] [facility] [place] [address] documented in this encounter Visit Diagnoses Diagnosis Dysuria - Primary Nonspecific finding on examination of ur ine Other nonspecific finding on examination of urine Fatigue, unspecified type Atrial fibrillation, unspecified type (H ) documented in this encounter Care Teams Lending Manager Relationship Specialty Start Date End Date No Ref-Primary, Physician PCP - General 07/15/20 Savanah Gaming PA-C Assigned PCP 06/24/20 08/25/20 [id number] [place] [address] documented as of this encounter
--- OUTSIDE RECORDS SUMMARY | 2022-02-16 08:42 | XMS_ITS | Encounter Summary ---
:1950 Author Organization [place] Address [address] [place] [address]. [place] [address] Care Team Providers Name Role Phone No Ref-Primary, Physician Primary Care Provider [phone] Savanah Gaming PA-C Unavailable [phone] Encounter Details Date Type Department Care Team Description 08/05/2020 Orders Only [facility] Francisco Peguero for screening Clinic Antonette Morrow MD for other viral [id number] [place] [address] N [place] diseases [place], [place] GASTROINTESTINAL [phone] [phone] [place] [address] Social History Tobacco Use Types [...] Component Value Ref Test Analysis Performed At [facility] Method Time Signature COVID-19 Nasopharyngeal 08/14/2020 [place] Virus PCR to 8:51 AM CDT [facility] Source COVID-19 Test received-See 08/14/2020 INFECTIOUS Virus PCR to reflex to IDDL 1:05 PM CDT [facility] [facility] [place] - test SARS CoV2 DIAGNOSTIC Result (COVID-19) Virus LABORATORY, RT-PCR [facility] Specimen (Source) Anatomical Collection Method Collection Time Re ceived Time Location / / Volume Laterality Specimen from 08/14/2020 8:50 08/14/2020 nasopharyngeal AM CDT 8:51 AM CDT structure (specimen) Francisco Peguero MD LAB - MICRO GENERAL ORDERABL ES Performing Organization Address City/State/ZIP Code Phon e Number INFECTIOUS DISEASES [address] [place] [address] DIAGNOSTIC LABORATORY, [facility] [address] [place] [id number] [facility] [phone] documented in this encounter Visit Diagnoses Diagnosis Encounter for screening for other viral diseases documented in this encounter Care Teams Chief Optometry Service Relationship Specialty Start Date End Date No Ref-Primary, Physician PCP - General 07/15/20 Savanah Gaming PA-C Assigned PCP 06/24/20 08/25/20 [address] [place] [address] documented as of this encounter
--- OUTSIDE RECORDS SUMMARY | 2022-02-16 08:42 | XMS_ITS | Encounter Summary ---
:1950 Author Organization [place] Address [facility] [place] [address] Care Team Providers Name Role Phone No Ref-Primary, Physician Primary Care Provider [phone] Savanah Gaming PA-C Unavailable [phone] Reason for Referral (Routine) - Closed Specialty Diagnoses / Procedures Referred By Contact Refer red To Contact Gastroenterology Diagnoses History of colonic polyps Savanah Gaming PA-C [address] [place] [address] Referral ID Status Reason Start Date Expiration Date Visits Requ ested Visits Authorized [id number] Closed 07/19/2020 07/19/2021 1 1 Scheduling Instructions If EUS or ERCP is selected, it requires clinical review prior to scheduling. Reason for Visit Reason Comments Hospital F/U Encounter Details Date Type Department Care Team Description 07/19/2020 Office Visit [facility] Savanah Gaming e cystitis with hematuria (Primary Dx); Clinic Eladio Mendez PA-C Hyperkalemia; [address] [facility] [address] Morbid obesity (H); [place], [place] Rectal bleedi ng; [phone] Diverticulosis of large intestine withou t hemorrhage; [phone] Bladder diverti culitis; (Work) Nausea; History o [...] - *UA reflex to Microscopic and Culture ([facility] (except Antonette Fernando and Sh[facility]) Hyperkalemia [...] Recheck if not improving. Savanah Gaming PA-C [facility] Dinah Mason is a 70 year old who presents for the following health issues [facility] Hospital Follow-up Visit: Hospital/Assisted/IP Rehab Facility: [facility] Date of Admission: 07/15/20 Date of Discharge: 07/15/20 Reason(s) for Admission: Rectal bleeding, UTI, started on keflex. Was your hospitalization related to COVID-19? No Problems taking medications regularly: None Medication changes since discharge: None Problems adhering to non-medication therapy: None Summary of hospitalization: [facility] discharge summary reviewed Diagnostic Tests/Treatments reviewed. [...] severe rectal bleeding, just moved here from [place], staying with his step son. Bleeding from rectum has not been better since been on the antibiotics but UTI has been better. History of UTIs. Potassium was 5.7. Does not take any medications daily. Colonoscopy [address] Kenny in [place], repeat due in 3 years. No gerd [...] a great week! Sincerely, Raquel Gaming PA-C [facility] [address] [place] [address] Clinic documented in this encounter Plan of [...] - 144 07/19/2020 [facility] mmol/L 8:44 PM [facility] Potassium 4.4 3.4 - 5.3 07/19/2020 [facility] mmol/L 8:44 PM [facility] Chloride 106 94 - 109 07/19/2020 [facility] mmol/L 8:44 PM [facility] Carbon Dioxide 28 20 - 32 07/19/2020 [facility] mmol/L 8:55 PM [facility] Anion Gap 5 3 - 14 07/19/2020 [facility] mmol/L 8:55 PM [facility] Glucose 120 (H) 70 - 99 07/19/2020 [facility] mg/dL 8:55 PM [facility] Urea Nitrogen 31 (H) 7 - 30 07/19/2020 [facility] mg/dL 8:55 PM [facility] Creatinine 1.19 0.66 - 07/19/2020 [facility] 1.25 mg/dL 8:55 PM [facility] GFR Estimate 61 >60 07/19/2020 [facility] mL/min/{1. 8:55 PM [facility] 73_m2} HOSPITAL Comment: Non GFR Calc Starting 03/19/2018, serum creatinine ba sed estimated GFR (eGFR) will be calculated using the Chronic Kidney Dise [facility] Epidemiology Collaboration (CKD-EPI) equation. GFR Estimate If 71 >60 mL/min/{1.73_m2} 07/19/2020 8: 55 PM [facility] Comment: GFR Calc Starting 03/19/2018, serum creatinine ba sed estimated GFR (eGFR) will be calculated using the Chronic Kidney Dise ase Epidemiology Collaboration (CKD-EPI) equation. Calcium 9.5 8.5 - 10.1 mg/dL 07/19/2020 8:55 PM CDT [facility] Specimen Anatomical Collection Method Collection Time Receive d Time (Source) Location / / Volume Laterality Blood 07/19/2020 2:44 PM 1 2:45 CDT PM CDT Savanah Gaming PA-C LAB - BLOOD ORDERABLE S Performing Organization Address City/[facility]/ZIP Code Phon e Number [facility] [address] [place] [address] [facility] [address] [place], [place] [address], [facility] [phone] [place] [address] [place] [address], [facility] (ABNORMAL) Urine Microscopic (07/19/2020 2:43 PM CDT) [facility] gist Method Time Signature WBC Urine 5-10 (A) OTO5^0 - 5 07/19/2020 [facility] /HPF 3:05 PM CDT [facility] RBC Urine 25-50 (A) OTO2^O - 2 07/19/2020 [facility] /HPF 3:05 PM CDT [facility] [place] Squamous Few FEW^Few 07/19/2020 [facility] Epithelial /LPF /LPF 3:05 PM CDT [facility] Bacteria Urine Few (A) NEG^Negati 07/19/2020 [facility] ve /HPF 3:05 PM CDT [facility] Calcium Oxalate Few (A) NEG^Negati 07/19/2020 [facility] ve /HPF 3:05 PM CDT [facility] Specimen Anatomical Collection Method Collection Time Receive d Time (Source) Location / / Volume Laterality 07/19/2020 2:43 PM 1 2:44 CDT PM CDT Savanah Gaming PA-C LAB - URINE ORDERABLE S Performing Organization Address City/[facility]/ZIP Code Phon e Number [facility] [address] [place] [address] (ABNORMAL) *UA reflex to Microscopic and Culture ([facility] (except [place]) (07/19/2020 2:43 PM CDT) [facility] Method Time Signature Color Urine Yellow 07/19/2020 [facility] 2:57 PM CDT [facility] Appearance Slightly 07/19/2020 [facility] Urine Cloudy 2:57 PM CDT [facility] Glucose Urine Negative NEG^Negat 07/19/2020 [facility] husam mg/dL 2:57 PM CDT [facility] Bilirubin Moderate (A) NEG^Negat 07/19/2020 [facility] Urine husam 2:57 PM CDT [facility] Comment: This is an unconfirmed screenin g test result. A positive result may be false. Ketones Urine 40 (A) NEG^Negative mg/dL 07/19/2020 2:57 [facility] PM CDT [facility] Specific [place] 1.025 1.003 - 1.035 07/19/2020 2:57 [place] Urine PM CDT [facility] Blood Urine Large (A) NEG^Negative 07/19/2020 2:57 [facility] CDT [facility] pH Urine 5.5 5.0 - 7.0 pH 07/19/2020 2:57 [facility] CDT [facility] Protein Albumin 100 (A) NEG^Negative mg/dL 07/19/2020 2:57 [place] Urine PM CDT [facility] Urobilinogen Urine 1.0 0.2 - 1.0 EU/dL 07/19/2020 2:57 [facility] CDT [facility] Nitrite Urine Negative NEG^Negative 07/19/2020 2:57 [facility] Leukocyte Esterase Small (A) NEG^Negative 07/19/2020 2:57 [facility] Urine PM CDT [facility] [place] Source Midstream Urine 07/19/2020 2:45 [facility] CDT [facility] [place] Specimen (Source) Anatomical Collection Method Collection Time Re ceived Time Location / / Volume Laterality Examination of 07/19/2020 2:43 07/19/2020 2:44 midstream urine PM CDT PM CDT specimen (procedure) Savanah Gaming PA-C LAB - URINE ORDERABLE S Performing Organization Address City/State/ZIP Code Phon e Number [facility] [address] [place] [place] [address] documented in this encounter Visit Diagnoses Diagnosis Acute cystitis with hematuria - Primary Acute cystitis Hyperkalemia Hyperpotassemia Morbid obesity (H) Morbid obesity Rectal bleeding Hemorrhage of rectum and anus Diverticulosis of large intestine withou t hemorrhage Bladder diverticulitis Diverticulum of bladder Nausea Nausea alone History of colonic polyps Personal history of colonic polyps documented in this encounter Care Teams Supervisor [employer] Relationship Specialty Start Date End Date No Ref-Primary, Physician PCP - General 07/15/20 Savanah Gaming PA-C Assigned PCP 06/24/20 08/25/20 [address] [place] [address] documented as of this encounter
--- OUTSIDE RECORDS SUMMARY | 2022-02-16 08:42 | XMS_ITS | Encounter Summary ---
:1950 Author Organization [place] Address [address] [place] [address] Care Team Providers Name Role Phone No Ref-Primary, Physician Primary Care Provider [phone] Savanah Gaming PA-C Unavailable [phone] Encounter Details Date Type Department Care Team [...] on filedocumented in this encounter Care Teams Sanitary Chemist Relationship Specialty Start Date End Date No Ref-Primary, Physician PCP - General 07/15/20 Savanah Gaming PA-C Assigned PCP 06/24/20 08/25/20 [address] [place] [address] documented as of this encounter
--- OUTSIDE RECORDS SUMMARY | 2022-02-16 08:42 | XMS_ITS | Encounter Summary ---
:1950 Author Organization [place] Address [address] [place] [address] Care Team Providers Name Role Phone No Ref-Primary, Physician Primary Care Provider [phone] Savanah Gaming PA-C Unavailable [phone] Encounter Details Date Type Department Care Team [...] on filedocumented in this encounter Care Teams Water Valve Mechanic Relationship Specialty Start Date End Date No Ref-Primary, Physician PCP - General 07/15/20 Savanah Gaming PA-C Assigned PCP 06/24/20 08/25/20 [address] [place] [address] documented as of this encounter
--- OUTSIDE RECORDS SUMMARY | 2022-02-16 08:42 | XMS_ITS | Encounter Summary ---
:1950 Author Organization [place] Address [facility] [place] [place] [address] Care Team Providers Name Role Phone No Ref-Primary, Physician Primary Care Provider [phone] Lino Radford DO Unavailable Reason for Referral (Routine) - Closed Specialty Diagnoses / Procedures Referred By Contact Refer red To Contact Diagnoses Chronic atrial fibrillation (H) Wilian Turner MD [address] [place] [address] Referral ID Status Reason Start Date Expiration Date Visits Requ ested Visits Authorized [id number] Closed 09/01/2020 09/01/2021 1 1 V Testing (Routine) - Closed Specialty Diagnoses / Procedures Referred By Contact Refer red To Contact Cardiology Diagnoses Chronic atrial fibrillation (H) Wilian Turner, Cv Cardiac Services Procedures Leadless borematic operator 3 to 7 Days ZZHC EXT ECG [...] S[address] [place] [address] [place] [phone] Referral ID Status Reason Start Date Expiration Date Visits Requ ested Visits Authorized [id number] Closed 09/01/2020 09/01/2021 1 1 V Testing [...] COMPLETE W DOPPLER W/O CONTRAST [place] [address] [place] [address] Referral ID Status Reason Start Date Expiration Date Visits Requ ested Visits Authorized [id number] Closed 09/01/2020 09/01/2021 1 1 Reason for Visit Reason Comments New Patient A-fib CV Cardio consult (Routine) - Closed Specialty Diagnoses / Procedures Referred By Contact Refer red To Contact Cardiovascular Disease Diagnoses Chronic atrial fibrillation (H) Lino Radford DO Ru [facility] [address] [address] [place] [address] [address] [place] [address] Phone: Fax: Referral ID Status Reason Start Date Expiration Date Visits Requ ested Visits Authorized [id number] Closed 08/23/2020 08/23/2021 1 1 Encounter Details Date Type Department Care Team Description 09/01/2020 Office Visit [facility] [place] [address] [address] [place], [place] [id number] Chronic atrial Heart Clinic Wilian Patel MD [address] [facility] [address] [place] [address] fibrillation (H) [address] [facility] [address] [place] [address] Social History Tobacco [...] of atrial fibrillation. Patient recently moved from [place] to [place]. He was told in the past that he had A. fib, however he denies actually having any physical back in [place]. Here, he was evaluated by PCP and [...] on phone: None Gets together: None Attends oriental orthodox service: None Active member of club or [...] Chronic atrial fibrillation ([place] [address] [place] [address] documented in this encounter Plan of Treatment Scheduled Referrals Name Type Priority Associated Diagnoses Order S chedule Follow-Up with Referral Routine Chronic atrial Expected: Grinding Wheel Facer fibrillation (H) 05/2020 (Approximate), Expires: 09/01/2021 documented as of this encounter Procedures Procedure Name Priority Date/Time Associated Diagnosis Comme nts EKG 12-LEAD Routine 09/02/2020 4:09 PM Chronic atrial Results for this COMPLETE W/READ - CDT fibrillation (H) proced ure are in CLINICS the results section. 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 APPLICATION AND INTERPRETATION 3 TO 7 DAY [...] PM CDT Narrative 09/29/2020 2:20 PM CDT [id number]^YUE^WILIAN^[facility] [address] [facility] [address] [place] [address] Name: MARLON BENTON : 1950 Study Date: 09/29/2020 12:50 PM Age: 70 yrs Gender: Male Patient Location: [facility] [address] Reason For Study: Chronic atrial fibrill ation (H) Ordering Physician: WILIAN TURNER Referring Physician: WILIAN TURNER A Performed By: Silvia Rubio BSA: 2.3 m2 Height: 71 in Weight: 243 lb HR: 112 BP: 120/82 mmHg Procedure Complete Echo Adult. Optison ([facility] #[id number]) given intravenously. Interpretation Summary The left ventricle [...] Procedure Note Odessa Aguila MD - 09/29/2020 [id number]^YUE^WILIAN^[facility] [address] [facility] [address] [place] [address] Name: MARLON BENTON : 1950 Study Date: 09/29/2020 12:50 PM Age: 70 yrs Gender: Male Patient Location: [facility] [address] Reason For Study: Chronic atrial fibrill ation (H) Ordering Physician: WILIAN TURNER Referring Physician: WILIAN TURNER Performed By: iSlvia Rubio BSA: 2.3 m2 Height: 71 in Weight: 243 lb HR: 112 BP: 120/82 mmHg Procedure Complete Echo Adult. Optison ([facility] #[id number]) given intravenously. Interpretation Summary The left ventricle [...] fibrillation documented in this encounter Care Teams Human Development Professor Relationship Specialty Start Date End Date No Ref-Primary, Physician PCP - General 07/15/20 Lino Radford DO Assigned PCP 08/26/20 [address] [place] [address] documented as of this encounter
--- OUTSIDE RECORDS SUMMARY | 2022-02-16 08:43 | XMS_ITS | Encounter Summary ---
:1950 Author Care Team Providers Name Role Phone Estela Elaine MD Primary Care Provider [phone] Reason for Visit Lab/Nursing Visit Assessment and Plan 1. Retention of urine ? urinalysis, dipstick ? culture, urine Discussion Note: None recorded.Patient educational handouts: No information available. Plan of Care Reminders Provider Appointments Established 30 03/03/2022 1:00PM ESTUARDO [facility] Lab Urinalysis, Dipstick 11/28/2021 [facility] ? Culture, Urine 11/28/2021 [facility] Referral None [...] -[facility]: [address] ? ? UR ABNORMAL Appearance turbid clear Final [place] [facility]: [address] [place] [address], [place] ? ? UR ? Glucose negative negative Final [place] [facility] mg/dL mg/dL [facility]: [address] [place] [address], [place] ? ? UR ? Bilirubin negative negative Final [place] [facility] [address] [place] [address], [place] ? ? UR ? Ketones negative negative Final [place] [facility] mg/dL mg/dL [facility]: [address] [place] [address], [place] ? ? UR ? Sp. [place] <=1.005 1.010-1.0 Final [place] [facility] 25 [facility]: [address] [place] [address], [place] ? ? UR ? pH -[facility] 5.0 5.0-8.0 Final [place] [facility]: [address] [place] [address], [place] ? ? UR ? Protein negative negative Final [place] [facility] mg/dL mg/dL [facility]: [address] [place] [address], [place] ? ? UR ? Urobilinogen 0.2 normal Final [place] [facility]: [address] [place] [address], [place] ? ? UR ABNORMAL Nitrites positive negative Final [place] [facility]: [address] [place] [address], [place] ? ? UR ABNORMAL Blood moderate negative Final [place] [facility]: [address] [place] [address], [place] ? ? UR ABNORMAL Leukocytes large negative Final [place] [facility]: [address] [place] [address], [place] ? ? UR ? Performed by aida T ? Final [place] [facility]: [address] [place] [address], [place] ? ? UR ? Total Urine 20 /mL ? Final [place] Volume (mL) [facility]: [address] 11/28/2021 Culture, UR ABNORMAL Final Report microbiology ? Final [place] Urine results [facility]: [address] Allergies None recorded. Problems None recorded. [...] icotine? N Functional Status Unknown. Past Encounters 11/28/2021 Retention of Urine Keagan Wallace MD: [address] [place] [phone], Ph. 11/02/2021 Prostate Nodule; Recurrent Urinary Tract Infection; Prostatitis Keagan Wallace MD: [address] [place] [phone], Ph. 11/02/2021 Raised Prostate Specific Antigen Keagan Wallace MD: [address] [place] [phone], Ph. History of Present Illness None recorded. Review of Systems None recorded. Physical Exam None recorded.
--- OUTSIDE RECORDS SUMMARY | 2022-02-16 08:43 | XMS_ITS | Encounter Summary ---
:1950 Author Care Team Providers Name Role Phone Estela Elaine MD Primary Care Provider [phone] Reason for Visit Post Op Check Assessment [...] gn Prostatic Hypertrophy Tasia Alejandre, ESTUARDO: [address] [facility], [address] [address], Ph. History of Present Illness Note: <div>This [...]
--- OUTSIDE RECORDS SUMMARY | 2022-02-16 08:43 | XMS_ITS ---
:1950 Author Care Team Providers Name Role Phone EILEEN ARECHIGA MD Primary Care Provider [phone] Allergies None recorded. Medications Name Status Start [...] -[facility]: [address] [address], [place] ? ? UR ABNORMA Appearance turbid clear Final [place] L -[facility]: [address] [address], [place] ? ? UR ? Glucose negative negative Final [place] -[facility] mg/dL mg/dL [facility]: [address] [facility] 200, [place] ? ? UR ? Bilirubin negative negative Final [place] -[facility]: [address] [address], [place] ? ? UR ? Ketones negative negative Final [place] -[facility] mg/dL mg/dL [facility]: [address] [place] [address], [place] ? ? UR ? Sp. Gustavus <=1.005 1.010-1.0 Final [place] -[facility] 25 [facility]: [address] [place] [address] ? ? UR ? pH -[facility] 5.0 5.0-8.0 Final [place] [facility]: [address] [place] [address] ? ? UR ? Protein negative negative Final [place] -[facility] mg/dL mg/dL [facility]: [address] [place] [address] ? ? UR ? Urobilinogen 0.2 normal Final [place] -[facility]: [address] [place] [address] ? ? UR ABNORMA Nitrites positive negative Final [place] -[facility]: [address] [place] [address], [place] ? ? UR ABNORMA Blood moderate negative Final [place] -[facility]: [address] [place] [address] ? ? UR ABNORMA Leukocytes large negative Final [place] -[facility]: [address] [place] [address], [place] ? ? UR ? Performed by aida Alvares ? Final [place] [facility]: [address] [place] [address] ? ? UR ? Total Urine 20 /mL ? Final [place] Volume (mL) [facility]: [address] [place] [address] 11/28/2021 Urinalysis, ABNORMA U-WBC 50 - 100 0 - 2 Final [place] Microscopic L [hpf] [hpf] [facility]: [address] [place] [address] ? ? ? U-RBC 0 - 2 [hpf] 0 - 2 Final [place] [hpf] [facility]: [address] [place] [address] ? ? ABNORMA Bacteria large [hpf] negative Final [place] L [hpf] [facility]: [address] [place] [address] ? ? ? Squamous Epi small /lpf negative, Fin al [place] small [facility] - /lpf [facility]: [address] [place] [address], [place] 11/28/2021 Culture, UR ABNORMA Final Report microbiolog ? Final [place] Urine L y results [facility]: [address] [place] [address], [place] 11/02/2021 Prostate Cnb ? Report Title comment [...] Dianon Description Syste [facility]: [address], [place] ? ? ? Diagnosis comment ? Final [...] ? Final [place]ian[facility] Description [facility]ste [facility]: [address], [place] ? ? ? Diagnosis comment [...] ? Final [place] Description Syste [facility]: [address], [place] ? ? ? Diagnosis comment [...] comment ? Final Di [facility] Systems: [address] ? ? ? Case Comment [...] Dipstick -[facility]: [address] [place] [address] ? ? UR ? Appearance clear clear Final [place] -[facility]: [address] ? ? UR ? Glucose negative negative Final [place] -[facility] mg/dL mg/dL [facility]: [address] ? ? UR ? Bilirubin negative negative Final [place] [facility]: [address] ? ? UR ABNORMA Ketones trace mg/dL negative Final [place] L -[facility] mg/dL [facility]: [address] ? ? UR ? Sp. Gustavus 1.025 1.010-1.0 Final [place] -[facility] 25 [facility]: [address] ? ? UR ? pH -[facility] 5.5 5.0-8.0 Final [place] [facility]: [address] ? ? UR ABNORMA Protein 30 mg/dL negative Final [place] -[facility] mg/dL [facility]: [address] ? ? UR ? Urobilinogen 0.2 normal Final [place] [facility]: [address] ? ? UR ? Nitrites negative negative Final [place] [facility]: [address] [place] [address], [place] ? ? UR ABNORMA Blood large negative Final [place] -[facility]: [address] [place] [address], [place] ? ? UR ABNORMA Leukocytes large negative Final [place] -[facility]: [address] [place] [address], [place] ? ? UR ? Performed by christie Fabian ? Final [place] [facility]: [address] [place] [address], [place] ? ? UR ? Total Urine 40 /mL ? Final [place] Volume (mL) [facility]: [address] [place] [address], [place] 10/14/2021 Urinalysis, ABNORMA U-WBC packed 0 - 2 Final [place] Microscopic L [hpf] [hpf] [facility]: [address] [place] [address], [place] ? ? ABNORMA U-RBC 2 - 5 [hpf] 0 - 2 Final [facility]: [address] [place] [address], [place] ? ? ABNORMA Bacteria moderate negative Final [place] L [hpf] [hpf] [facility]: [address] [place] [address] ? ? ? Squamous Epi negative negative, Final [place] /[facility] small Urology - /f [facility]: [address] [place] [address], [place] 10/14/2021 PSA, Total, BLDV ? PSA, Total 1.43 NG/mL 0.00-4 .00 Final [place] Serum or NG/mL [facility]rology - Plasma [facility]: [address] [place] [address] 10/14/2021 Culture, UR ? Final Report microbiolog ? Final [place] Urine y results [facility]: [address] [place] [address], [place] 09/15/2021 Urinalysis, UR ? Color yellow yellow Final [place] Dip[place] -[facility]: [address] [place] [address], [place] ? ? UR ABNORMA Appearance cloudy clear Final [place] L -[facility]: [address] [place] [address], [place] ? ? UR ? Glucose negative negative Final [place] [facility] mg/dL mg/dL [facility] [address] ? ? UR ? Bilirubin negative negative Final [place] [facility] [address] ? ? UR ? Ketones negative negative Final [place] -[facility] mg/dL mg/dL [facility]: [address] [place] [address] ? ? UR ? Sp. Gustavus 1.025 1.010-1.0 Final [place] [facility]: [address] [place] [address] ? ? UR ? pH -[facility] 6.0 5.0-8.0 Final [place] [facility]: [address] ? ? UR ABNORMA Protein 30 mg/dL negative Final [place] L -[facility] mg/dL [facility]: [address] [place] [address] ? ? UR ? Urobilinogen 0.2 normal Final [place] [facility]: [address] ? ? UR ? Nitrites negative negative Final [place] [facility]: [address] ? ? UR ABNORMA Blood moderate negative Final [place] -[facility]: [address] [place] [address] ? ? UR ABNORMA Leukocytes large negative Final [place] -[facility]: [address] [place] [address] ? ? UR ? Performed by jasmyne Bustillos ? Final [place] [facility]: [address] [place] [address] ? ? UR ? Total Urine 60 /mL ? Final [place] Volume (mL) [facility]: [address] [place] [address] 09/15/2021 Urinalysis, ABNORMA U-WBC packed 0 - 2 Final [place] Microscopic L [hpf] [hpf] [facility]: [address] [place] [address] ? ? ABNORMA U-RBC 2 - 5 [hpf] 0 - 2 Final [place] L [hpf] [facility] [address] [place] [address] ? ? ABNORMA Bacteria small [hpf] negative Final [place] L [hpf] [facility]: [address] [address], [place] ? ? ? Squamous Epi negative negative, Final [place] /lpf small [facility]rology - /lpf [facility]: [address] [place] [address], [place] 09/15/2021 Culture, UR ? Final Report microbiolog ? Final [place] Urine y results [facility]: [address] [place] [address] 09/09/2021 Urinalysis, UR ? Color yellow yellow Final [place] Dip[place] [facility]: [address] [place] [address], [place] ? ? UR ? Appearance clear clear Final [place] -[facility]: [address] [place] [address], [place] ? ? UR ? Glucose negative negative Final [place] [facility] mg/dL mg/dL [facility]: [address] [place] [address] ? ? UR ? Bilirubin negative negative Final [place] [facility]: [address] ? ? UR ? Ketones negative negative Final [place] -[facility] mg/dL mg/dL [facility]: [address] ? ? UR ? Sp. Gustavus 1.020 1.010-1.0 Final [place] -[facility]: [address] [place] [address], [place] ? ? UR ? pH -[facility] 5.5 5.0-8.0 Final [place] [facility]: [address] [address], [place] ? ? UR ABNORMA Protein 30 mg/dL negative Final [place] L -[facility] mg/dL [facility]: [address] ? ? UR ? Urobilinogen 0.2 normal Final [place] [facility]: [address] [address], [place] ? ? UR ? Nitrites negative negative Final [place] [facility]: [address] [address], [place] ? ? UR ABNORMA Blood moderate negative Final [place] L -[facility]: [address] ? ? UR ABNORMA Leukocytes large negative Final [place] L -[facility]: [address] [place] [address], [place] ? ? UR ? Performed by sylvester Case ? Final [place] [facility]: [address] [address], [place] ? ? UR ? Total Urine 80 /mL ? Final [place] Volume (mL) [facility]: [address] [place] [address], [place] 09/09/2021 Urinalysis, ABNORMA U-WBC 50 - 100 0 - 2 Final [place] Microscopic L [hpf] [hpf] [facility]: [address] [place] [address], [place] ? ? ? U-RBC 0 - 2 [hpf] 0 - 2 Final [place] [hpf] [facility]: [address] [place] [address], [place] ? ? ABNORMA Bacteria small [hpf] negative Final [place] L [hpf] [facility]: [address] [place] [address], [place] ? ? ? Squamous Epi small /lpf negative, Fin al [place] small [facility] - /lpf [facility]: [address] [place] [address], [place] Past Encounters 01/23/2022 Lower Urinary Tract Symptoms Due to [place] Prostatic Hypertrophy Tasia Alejandre, PA: [address] [place] [phone], Ph. 11/28/2021 Retention of Urine Keagan Wallace MD: [address] [place] [phone], Ph. 11/02/2021 Prostate Nodule; Recurrent Urinary Tract Infection; Prostatitis Keagan Wallace MD: [address] [place] [phone], Ph. 11/02/2021 Raised Prostate Specific Antigen Keagan Wallace MD: [address] [place] [phone], Ph. 10/14/2021 Urinary Tract Infectious Disease; Retent ion of Urine Keagan Wallace MD: [address] [place] [phone], Ph. 10/14/2021 Raised Prostate Specific Antigen Keagan Wallace MD: [address] [place] [address], [address] [place] [phone], Ph. 09/15/2021 Dysuria Keagan Wallace MD: [address] [place] [address], [address] [place] [phone], Ph. 09/09/2021 Prostatitis; Incomplete Emptying of Blad alen; Prostate Nodule Keagan Wallace MD: [address] [place] [address], [facility] [address] [phone], Ph. Social History Tobacco Smoking Status Never [...]
== END 2022-02-16 08:40 | disposition home or self-care (01) ==
LOC: FRMREF 08:39
PROVIDERS: PCP Family Medicine; Visit Provider Physician Assistant Medical
DX: N39.0 Urinary tract infection, site not specified (principal)
CPT/HCPCS: 87086

== ENCOUNTER 2022-09-13 11:59 | Outpatient (CLI) | payer MEDICARE, SELFPAY | END 2022-09-13 12:00 | disposition home or self-care (01) | PROVIDERS: PCP Family Medicine; Visit Provider Family Medicine | DX: Z00.00 Encounter for general adult medical examination without abnormal findings (principal); I48.91 Unspecified atrial fibrillation; F41.1 Generalized anxiety disorder; Z13.6 Encounter for screening for cardiovascular disorders; Z12.5 Encounter for screening for malignant neoplasm of prostate; Z87.440 Personal history of urinary (tract) infections; Z90.79 Acquired absence of other genital organ(s) | CPT/HCPCS: 80053; 80061; 84153; 84154 ==

== ENCOUNTER 2022-11-22 07:02 | Outpatient (CLI) | payer MEDICARE, SELFPAY | END 2022-11-22 07:03 | disposition home or self-care (01) | PROVIDERS: PCP Family Medicine; Referring Provider Family Medicine; Visit Provider Physician Assistant Medical | DX: R30.0 Dysuria (principal); N39.0 Urinary tract infection, site not specified | CPT/HCPCS: 87086 ==

== ENCOUNTER 2023-03-07 09:39 | Outpatient (CLI) | payer MEDICARE, SELFPAY | END 2023-03-07 09:40 | disposition home or self-care (01) | LOC: NFLDREF 03-08 09:07 | PROVIDERS: PCP Family Medicine; Referring Provider Family Medicine; Visit Provider Family Medicine | DX: N39.0 Urinary tract infection, site not specified (principal); R31.9 Hematuria, unspecified | CPT/HCPCS: 87086 ==

== ENCOUNTER 2023-03-12 09:54 | Outpatient (CLI) | payer MEDICARE, SELFPAY ==
--- NOTE | 2023-03-12 10:30 | CRLHL7_ITS ---
For Patients: As a result of the Century Cures Act, medical imaging exams and procedure reports are released immediately into your electronic medical record. You may view this report before your referring provider. If you have questions, please contact your health care provider. CLINICAL HISTORY: Hematuria COMPARISON: none TECHNIQUE: Russell scale and color Doppler images were acquired of the kidneys and urinary bladder. FINDINGS: Left renal calculus is present measuring 2 millimeters. Simple cyst left kidney mid portion measures 2.1 x 1.8 x 2.0 cm. Simple cyst upper pole right kidney measures 3.4 x 3.5 x 3.8 cm. Simple cyst lower pole right kidney measures 4.1 x 4.2 x 4.4 cm. Mild left hydronephrosis is present. The right kidney measures 11.9cm in length and the left kidney measures 12.0cm in length. The renal cortex appears of normal thickness. Normal color Doppler images of both kidneys. Bladder diverticula are present measuring up to 5.3 cm. IMPRESSION: 2 millimeters stone left kidney. Mild left hydronephrosis. Multiple bladder diverticula. Multiple bilateral simple renal cysts. Dictated by Saud Cambpell MD @ 03/12/2023 10:58:07 AM (Electronically Signed)
== END 2023-03-12 09:55 | disposition home or self-care (01) ==
LOC: US 09:55
PROVIDERS: PCP Family Medicine; Visit Provider Family Medicine
DX: R31.9 Hematuria, unspecified (principal); N13.2 Hydronephrosis with renal and ureteral calculous obstruction; N32.3 Diverticulum of bladder; N28.1 Cyst of kidney, acquired; N39.0 Urinary tract infection, site not specified
CPT/HCPCS: 76770

== ENCOUNTER 2023-03-22 08:08 | Outpatient (CLI) | payer MEDICARE, SELFPAY | END 2023-03-22 08:09 | disposition home or self-care (01) | LOC: NFLDREF 03-25 11:55 | PROVIDERS: PCP Family Medicine; Referring Provider Family Medicine; Visit Provider Family Medicine | DX: N39.0 Urinary tract infection, site not specified (principal) | CPT/HCPCS: 87086 ==

== ENCOUNTER 2023-04-05 10:08 | Outpatient (CLI) | payer MEDICARE, SELFPAY ==
--- OUTSIDE RECORDS SUMMARY | 2023-04-11 19:54 | XMS_ITS | Encounter Summary ---
Author Name Unknown Organization [facility] Address [address] [place] [address] Care Team Providers Care Implementation Lead Name Role Phone No Ref-Primary, Physician Primary Care Provider Lino Radford DO Unavailable [phone] Wilian Castañeda MD Unavailable [phone] Justine Laurent PA-C Unavailable Encounter Details Date Type Department Care Team (Late st Contact Info) Description 11/04/2020 Documentation Only INTERFACED REPORT Unknown, Provider Social History Tobacco Use Types Packs/Day Years Used Date Smoking Tobacco: Former Cigarettes 2 20 0 04/02/1971 - 04/02/1991 Smokeless Tobacco: Never Alcohol Use Standard Drinks/Week Comments Yes 0 (1 standard drink = 0.6 oz pur e alcohol) occ PHQ-2 Answer Date Recorded PHQ-2 Score 0 08/23/2020 Sex and Gender Information Value Date Recorded Sex Assigned at Male 08/29/2020 12:26 PM CDT Gender Identity Male 08/29/2020 12:26 PM CDT Sexual Orientation Straight 08/29/2020 12 :26 PM CDT COVID-19 Exposure Response Date Recorded In the last month, have you been in contact with someone who was confirmed or suspected to have Coronavirus / COVID-19? No / Unsure 11/04/2020 3:28 PM CDT documented as of this encounter Plan of Treatment Not on file documented as of this encounter Visit Diagnoses Not on filedocumented in this encounter Care Teams Implementation Lead Relationship Specialty Start Date End Date No Ref-Primary, Physician PCP - General 07/15/20 [place] [address] [address] [address] Assigned PCP 08/26/20 Wilian Castañeda MD [address] [place] [address] Assigned Heart and Vascular Provider 09/12/20 04/28/22 Justine Laurent PA-C [address] [place] [id number] Assigned Surgical Provider 01/02/21 documented as of this encounter
--- OUTSIDE RECORDS SUMMARY | 2023-04-11 19:54 | XMS_ITS | Clinical Summary ---
Author Name Unknown Organization [facility] Address [address] [place] [address] Care Team Providers Care Medical Support Specialist Name Role Phone No Ref-Primary, Physician Primary Care Provider Lino Radford DO Unavailable [phone] Allergies No known active allergies Medications Medication Sig Dispensed Refills Start Date End Date Status ondansetron (ZOFRAN) 4 MG tabletIndications:Nause a Take 1 tablet (4 mg) by mouth every 8 hours as needed for nausea 20 tablet 3 07/19/2020 Active acetaminophen (TYLENOL) 500 MG tablet Take 500-1,000 mg by mouth every 6 hours as needed for mild pain 0 Active apixaban ANTICOAGULANT (ELIQUIS ANTICOAGULANT) 5 MG tabletIndications:Chron ic atrial fibrillation (H) Take 1 tablet (5 mg) by mouth 2 times daily 60 tablet 3 10/27/2020 Active carvedilol (COREG) 3.125 MG tabletIndications:Chron ic atrial fibrillation (H) Take 1 tablet (3.125 mg) by mouth 2 times daily (with meals) 60 tablet 3 10/27/2020 Active Active Problems Problem Noted Date Diagnosed Date Diverticulosis of large intestine without hemorr remberto 07/19/2020 Bladder diverticulitis 07/19/2020 Morbid obesity 07/19/2020 History of colonic polyps 07/19/2020 Rectal bleeding 07/19/2020 Urinary tract infection Immunizations Name Administration Dates Next Due COVID-19 Monovalent 18+ (Moderna) 03/18/2021 TD,PF 7+ (Tenivac) 08/23/2020 Family History Medical History Relation Comments [...] Answer Date Recorded PHQ-2 Score 0 08/23/2020 Adolescent Education Answer Date Record ed Getting School Help Needed Not on file 12/23 Sex and Gender Information Value Date Recorded Sex Assigned at Male 08/29/2020 12:26 PM CDT Gender Identity Male 08/29/2020 12:26 PM CDT Sexual Orientation Straight 08/29/2020 12 :26 PM CDT Last Filed Vital Signs Vital Sign Reading Time Taken Comments Blood Pressure 168/108 11/04/2020 4:00 PM CDT Pulse 103 11/04/2020 4:00 PM CDT Temperature 36.9 ??C (98.4 ??F) 11/04/2020 3:29 PM CD T Respiratory Rate 16 11/04/2020 3:29 PM CDT Oxygen Saturation 96% 11/04/2020 4:30 PM CDT Inhaled Oxygen Concentration - - Weight 111.6 kg (246 lb) 12/23/2020 2:06 PM CDT Height 180.3 cm (5' 10.98) 12/23/2020 2:06 PM C DT Body Mass Index 34.33 12/23/2020 2:06 PM CDT Plan of Treatment Health Maintenance Due Date Last Done Comments ADVANCE CARE PLANNING 1950 CT COLONOGRAPHY 1950 FLEX SIG 1950 sDNA (Cologuard) 1950 HEPATITIS C SCREENING 1968 LIPID 1985 LUNG CANCER SCREENING 2000 ZOSTER IMMUNIZATION (1 of 2) 2000 RSV VACCINE ( & 60+ ) (1 - 1-dose 60+ series) 2010 MEDICARE ANNUAL WELLNESS VISIT 2015 Pneumococcal Vaccine: 65+ Years (1 of 1 - PCV) 2015 DTAP/TDAP/TD IMMUNIZATION (1 - Tdap) 08/24/2020 08/23/2020 FIT 07/15/2021 07/15/2020 ANNUAL REVIEW OF HM ORDERS 08/23/2021 08/23/2020 FALL RISK ASSESSMENT 08/23/2021 08/23/2020 PHQ-2 (once per calendar year) 2022 08/23/2020 COVID-19 Vaccine (2 - 2022-2 4 season) 2022 03/18/2021 INFLUENZA VACCINE (#1) 2022 COLONOSCOPY 08/18/2025 08/18/2020, 04/02/2017 COLORECTAL CANCER SCREENING 08/18/2025 AORTIC ANEURYSM SCREENING (SYSTEM ASSIGNED) Completed 07/15/2020 HPV IMMUNIZATION Aged Out No longer e ligible based on patient's age to complete this topic IPV IMMUNIZATION Aged Out No longer e ligible based on patient's age to complete this topic MENINGITIS IMMUNIZATION Aged Out No l onger eligible based on patient's age to complete this topic RSV MONOCLONAL ANTIBODY Aged Out No l onger eligible based on patient's age to complete this topic Care Teams Medical Support Specialist Relationship Specialty Start Date End Date No Ref-Primary, Physician PCP - General 07/15/20 [place] [address] [place] [address] Assigned PCP 08/26/20
--- OUTSIDE RECORDS SUMMARY | 2023-04-11 19:54 | XMS_ITS | Clinical Summary ---
Author Name Unknown Organization [facility] Address [place], [place] [address] Care Team Providers Care Computer Systems Consultant Name Role Phone Yelena Multani Primary Care Provide r Allergies No known active allergies Medications Medication Sig Dispensed Refills Start Date End Date Status oxyCODONE-acetamin ophen (PERCOCET) 5-325 mg per tabletIndications: Benign prostatic hyperplasia with urinary obstruction Take 1 Tablet by mouth every 6 hours if needed for Pain. Max acetaminophen dose: 4000mg in 24 hrs. 15 Tablet 0 01/21/2022 Active oxyCODONE (ROXICODONE) 5 mg immediate release tabletIndications: Benign prostatic hyperplasia with urinary obstruction Take 1-2 Tablets (5-10 mg) by mouth every 4 hours if needed for Pain (For severe pain.). 10 Tablet 0 01/21/2022 Active Active Problems Problem Noted Date Diagnosed Date BPH (benign prostatic hyperplasia) 01/20/2022 Recurrent UTI 01/20/2022 Chronic systolic CHF (congestive heart failure) 01/20/2022 Chronic atrial fibrillation 01/20/2022 Family History Medical History Relation Name Comments Esophageal cancer Father Relation Name Status Comments Father Social History Tobacco Use Types Packs/Day Years Used Date Smoking Tobacco: Never Smokeless Tobacco: Never Alcohol Use Standard Drinks/Week Comments Yes 0 (1 standard drink = 0.6 oz pur e alcohol) Sex and Gender Information Value Date Recorded Sex Assigned at Not on file Gender Identity Not on file Sexual Orientation Not on file Obstetrics History Last Filed Vital Signs Vital Sign Reading Time Taken Comments Blood Pressure 128/76 01/21/2022 7:56 AM CDT Pulse 92 01/21/2022 7:56 AM CDT Temperature 36.8 ??C (98.2 ??F) 01/21/2022 7:56 AM CD T Respiratory Rate 17 01/21/2022 7:56 AM CDT Oxygen Saturation 97% 01/21/2022 7:56 AM CDT Inhaled Oxygen Concentration - - Weight 88.5 kg (195 lb 1.7 oz) 01/20/2022 9:21 A M CDT Height 180.3 cm (5' 11) 01/20/2022 [...] series for age 50+ (1 of 2) 04/22/19 Pneumococcal series for age 65+ (1 - PCV) 2015 COVID-19 vaccine series (2 - Moderna series) 2 03/18/2021 Influenza for age 65+ 12/01/2022 Advance Directives Latest Code Status on File Code Status Date Activated Date Inactivated Comments Full Code 01/20/2022 9:01 AM 01/21/2022 2:38 PM Kate uld be discussed pre operatively with anesthesia or surgeon Question Answer Comments Code Status Discussion: Not Discussed Care Teams Computer Systems Consultant Relationship Specialty Start Date End Date Yelena Multani DO [address] [place] [address] PCP - General Family Practice 01/02/22
--- OUTSIDE RECORDS SUMMARY | 2023-04-11 19:54 | XMS_ITS | Referral Summary ---
Author Name Unknown Organization [facility] Address [address] [place] [address] Care Team Providers Care Payroll Benefits Clerk Name Role Phone No Ref-Primary, Physician Primary Care Provider Lino Radford DO Unavailable [phone] Allergies No known active allergies Medications [...] 18+ (Moderna) 03/18/2021 TD,PF 7+ (Tenivac) 08/23/2020 Social History Tobacco Use Types Packs/Day Years [...] 12/23/2020 2:06 PM CDT Plan of Treatment Not on file Care Teams Payroll Benefits Clerk Relationship Specialty Start Date End Date No Ref-Primary, Physician PCP - General 07/15/20 [place] [address] [place] [address] Assigned PCP 08/26/20
--- OUTSIDE RECORDS SUMMARY | 2023-04-11 19:54 | XMS_ITS | Encounter Summary ---
Author Name Unknown Organization [facility] Address [address] [place] [address] Care Team Providers Care Development Geologist Name Role Phone No Ref-Primary, Physician Primary Care Provider Lino Radford DO Unavailable [phone] Wilian Castañeda MD Unavailable [phone] Justine Laurent PA-C Unavailable [phone] Encounter Details Date Type Department Care Team (Late st Contact Info) Description 11/03/2021 [facility] Medical Advice [address] [phone] Roberta Traore, SALES AND MERCHANDISING ASSOCIATE Social History Tobacco Use Types Packs/Day Years [...] Orientation Straight 08/29/2020 12 :26 PM CDT documented as of this encounter Plan of Treatment Not on file documented as of this encounter Visit Diagnoses Not on filedocumented in this encounter Care Teams Development Geologist Relationship Specialty Start Date End Date No Ref-Primary, Physician PCP - General 07/15/20 [place] [address] [place] [address] Assigned PCP 08/26/20 Wilian Castañeda MD [address] [place] [address] Assigned Heart and Vascular Provider 09/12/20 04/28/22 Justine Laurent PA-C [address] [place] [address] Assigned Surgical Provider 01/02/21 documented as of this encounter
--- OUTSIDE RECORDS SUMMARY | 2023-04-11 19:54 | XMS_ITS | Data Portability ---
Author Name Unknown Address [address] [place] [address] Phone [phone] Organization [facility], [facility] Address [address] [facility] [address] [place] [address] Assessment Encounter Date Assessment Date Assessment LastModified by Organization Details LastModified Time 09/09/2021 09/09/2021 71 year old male with benign prostatic hyperplasia with lower urinary tract symptoms, a recent episode of prostatitis, and a prostate nodule. [email or web address] Not available 09/09/2021 14:42:54 11/02/2021 11/02/2021 71 year old male here for prostate biopsy. Not available 11/01/2021 16:49:53 01/23/2022 01/23/2022 This is a 71 year old male with a history of lower urinary tract symptoms, recurrent episodes of prostatitis, and a prostate nodule who is now s/p TURP with Dr. Wallace on 01/20/2022 marli Not available 01/23/2022 11:13:46 Plan of Treatment Reminders Order Date Submit Date Provider Last Modified By Organization Details Last Modified Time Details Appointments None recorded. Lab urinalysis, dipstick 2021 022 [facility], [address], [place], [address], 13:57:58 culture, urine 2021 022 [facility], [address], [place], [address], 2 12:44:23 biopsy, prostate 2021 022 [facility], [address], [address], [place], [address], 14:42:54 urinalysis, dipstick 2021 022 [facility], [address], [address], [place], [address], 14:10:16 culture, urine 2021 022 [facility], [address], [address], [place], [address], 09:16:20 PSA, total, serum or plasma 2021 022 [facility], [address], [address], [place], [address], 15:07:04 urinalysis, dipstick 2021 022 [facility], [address], [address], [place], [address], 12:06:27 culture, urine 2021 022 [facility], [address], [address], [place], [address], 09:41:11 urinalysis, dipstick 2021 022 [facility], [address], [place], [address], 14:50:42 prostate specific Ag, serum or plasma 2021 022 [facility], [address], [place], [address], 08:50:34 Referral None recorded. Procedures None recorded. Surgeries None recorded. Imaging None recorded. Medication Orders ceftriaxone 1 gram solution for injection 2021 022 [email or web address] [id number], [address], [place], [address], 12:13:20 ciprofloxac in 500 mg tablet 2021 022 [id number], [address], [place], [address], 14:45:03 Patient TargetsNo targets recorded. Patient Instructions Encounter Date Encounter Id Patient Instructions Last Modified By Organization Details Last Modified Time 01/23/2022 [id number] Hx of urinary retention, s/p TURP 01/20 -Patient did not pass voiding trial this morning - He was offered to have the catheter reinserted vs. learn CIC - He is refusing both -If unable to urinate by the end of the day, instructed patient to return to the clinic. If after clinic hours, instructed to go to urgent care or the emergency department. -Monitor for symptoms of urinary retention including abdominal pain/pressure or distension, inability to urinate for 4-6 hours, dribbling or only urinating drops, or feeling of incomplete emptying. [email or web address] Not available 01/23/2022 11:14:53 11/02/2021 [id number] Prostate Nodule: The patient tolerated the procedure well. We discussed that he can expect to have blood coating the stool for a few days, pink or reddish urine which may be normal, and rust colored ejaculate for up to one month. We discussed important warning signs such as fevers >100.4 which may be indicative of sepsis, worsening blood in the urine with clots and urinary retention, or worsening blood per rectum. In each other these circumstances he should contact the office immediately or go to the Emergency Department. He will be contacted with the results of his biopsy. If he does not receive these results within 5-7 business days he should contact our office. Not available 11/01/2021 16:50:07 09/09/2021 [id number] Prostate Nodule/Obstructiv e Urinary Symptoms: I am quite concerned by his examination. I suspect he harbors a prostate cancer which is causing outlet obstruction and predisposing him to infection. I recommend he undergo a transrectal ultrasound guided prostate biopsy. We discussed the risks and benefits of the procedure including infection and bleeding. Check prostate specific antigen today. He is willing to proceed. Not available 09/09/2021 14:44:49 Reason for Referral None Reported. Results Created Date Observation Date Name Description Value Unit Range Abnormal Flag LastModifiedBy Organization Detail LastModifiedTime 09/10/19 22 09/09/2021 UA DIP CS ADVAN TUS color -advantus yellow yellow Not Available [facility] [address], [place], [address], 09/09/2021 14:50:42 09/10/19 22 09/09/2021 UA DIP CS ADVAN TUS appearance -advantus clear clear Not Available [facility] [address], [place], [address], 09/09/2021 14:50:42 09/10/19 22 09/09/2021 UA DIP CS ADVAN TUS glucose -advantus negati ve mg/dL negati ve Not Available [facility] [address], [place], [address], 09/09/2021 14:50:42 09/10/19 22 09/09/2021 UA DIP CS ADVAN TUS bilirubin -advantus negati ve negati ve Not Available [facility] [address], [place], [address], 09/09/2021 14:50:42 09/10/19 22 09/09/2021 UA DIP CS ADVAN TUS ketones -advantus negati ve mg/dL negati ve Not Available [facility] [address], [place], [address], 09/09/2021 14:50:42 09/10/19 22 09/09/2021 UA DIP CS ADVAN TUS sp. gravity -advantus 1.020 1.010- 1.025 Not Available [facility] [address], [place], [address], 09/09/2021 14:50:42 09/10/19 22 09/09/2021 UA DIP CS ADVAN TUS pH -advantus 5.5 5.0-8. 0 Not Available [facility] [address], [place], [address], 09/09/2021 14:50:42 09/10/19 22 09/09/2021 UA DIP CS ADVAN TUS protein -advantus 30 mg/dL negati ve abnormal Not Available [facility] [address] [place] [address] [address], [place], [address], 09/09/2021 14:50:42 09/10/19 22 09/09/2021 UA DIP CS ADVAN TUS urobilinogen -advantus 0.2 normal Not Available [facility] [address], [place], [address], 09/09/2021 14:50:42 09/10/19 22 09/09/2021 UA DIP CS ADVAN TUS nitrites -advantus negati ve negati ve Not Available [facility] [address] [place] [address] [address], [place], [address], 09/09/2021 14:50:42 09/10/19 22 09/09/2021 UA DIP CS ADVAN TUS blood -advantus modera te negati ve abnormal Not Available [facility] [address] [place] [address] [address], [place], [address], 09/09/2021 14:50:42 09/10/19 22 09/09/2021 UA DIP CS ADVAN TUS leukocytes -advantus large negati ve abnormal Not Available [facility] [address] [place] [address] [address], [place], [address], 09/09/2021 14:50:42 09/10/19 22 09/09/2021 UA DIP CS ADVAN TUS performed by sylvester Case Not Available [facility] [address] [place] [address] [address], [place], [address], 09/09/2021 14:50:42 09/10/19 22 09/09/2021 UA DIP CS ADVAN TUS total urine volume (mL) 80 /mL Not Available [facility] [address] [place] [address] [address], [place], [address], 09/09/2021 14:50:42 09/10/19 22 09/09/2021 UA MICRO SCOPI C U-WBC 50 - 100 [hpf] 0 - 2 abnormal Not Available [facility] [address] [place] [address] [address], [place], [address], 09/09/2021 14:50:43 09/10/19 22 09/09/2021 UA MICRO SCOPI C U-RBC 0 - 2 [hpf] 0 - 2 Not Available [facility] [address], [place], [address], 09/09/2021 14:50:43 09/10/19 22 09/09/2021 UA MICRO SCOPI C bacteria small [hpf] negati ve abnormal Not Available [facility] [address] [place] [address] [address], [place], [address], 09/09/2021 14:50:43 09/10/19 22 09/09/2021 UA MICRO SCOPI C squamous epi small /lpf negati ve,sma ll Not Available [facility] [address] [place] [address] [address], [place], [address], 09/09/2021 14:50:43 09/16/19 22 09/15/2021 UA DIP CS ADVAN TUS color -advantus yellow yellow Not Available [facility] [address] [place] [address] [address], [place], [address], 09/15/2021 12:06:27 09/16/19 22 09/15/2021 UA DIP CS ADVAN TUS appearance -advantus cloudy clear abnormal Not Available [facility] [address], [place], [address], 09/15/2021 12:06:27 09/16/19 22 09/15/2021 UA DIP CS ADVAN TUS glucose -advantus negati ve mg/dL negati ve Not Available [facility] [address] [place] [address] [address], [place], [address], 09/15/2021 12:06:27 09/16/19 22 09/15/2021 UA DIP CS ADVAN TUS bilirubin -advantus negati ve negati ve Not Available [facility] [address] [place] [address] [address], [place], [address], 09/15/2021 12:06:27 09/16/19 22 09/15/2021 UA DIP CS ADVAN TUS ketones -advantus negati ve mg/dL negati ve Not Available [facility] [address] [place] [address] [address], [place], [address], 09/15/2021 12:06:27 09/16/19 22 09/15/2021 UA DIP CS ADVAN TUS sp. gravity -advantus 1.025 1.010- 1.025 Not Available [facility] [address] [place] [address] [address], [place], [address], 09/15/2021 12:06:27 09/16/19 22 09/15/2021 UA DIP CS ADVAN TUS pH -advantus 6.0 5.0-8. 0 Not Available [facility] [address] [place] [address] [address], [place], [address], 09/15/2021 12:06:27 09/16/19 22 09/15/2021 UA DIP CS ADVAN TUS protein -advantus 30 mg/dL negati ve abnormal Not Available [facility] [address], [place], [address], 09/15/2021 12:06:27 09/16/19 22 09/15/2021 UA DIP CS ADVAN TUS urobilinogen -advantus 0.2 normal Not Available [facility] [address], [place], [address], 09/15/2021 12:06:27 09/16/19 22 09/15/2021 UA DIP CS ADVAN TUS nitrites -advantus negati ve negati ve Not Available [facility] [address] [place] [address] [address], [place], [address], 09/15/2021 12:06:27 09/16/19 22 09/15/2021 UA DIP CS ADVAN TUS blood -advantus modera te negati ve abnormal Not Available [facility] [address] [place] [address] [address], [place], [address], 09/15/2021 12:06:27 09/16/19 22 09/15/2021 UA DIP CS ADVAN TUS leukocytes -advantus large negati ve abnormal Not Available [facility] [address] [facility] [address], [place], [address], 09/15/2021 12:06:27 09/16/19 22 09/15/2021 UA DIP CS ADVAN TUS performed by kevan Bustillos Not Available [facility] [address] [place] [address] [address], [place], [address], 09/15/2021 12:06:27 09/16/19 22 09/15/2021 UA DIP CS ADVAN TUS total urine volume (mL) 60 /mL Not Available [facility] [address], [place], [address], 09/15/2021 12:06:27 09/16/19 22 09/15/2021 UA MICRO SCOPI C U-WBC packed [hpf] 0 - 2 abnormal Not Available [facility] [address], [place], [address], 09/15/2021 12:06:29 09/16/19 22 09/15/2021 UA MICRO SCOPI C U-RBC 2 - 5 [hpf] 0 - 2 abnormal Not Available [facility] [address] [place] [address] [address], [place], [address], 09/15/2021 12:06:29 09/16/19 22 09/15/2021 UA MICRO SCOPI C bacteria small [hpf] negati ve abnormal Not Available [facility] [address] [place] [address], [place], [address], 09/15/2021 12:06:29 09/16/19 22 09/15/2021 UA MICRO SCOPI C squamous epi negati ve /lpf negati ve,sma ll Not Available [facility] [address] [place] [address], [place], [address], 09/15/2021 12:06:29 09/16/19 22 09/15/2021 URINE CULTU RE final report microb iology result s Not Available [facility] [address] [place] [address], [place], [address], 09/17/2021 09:41:11 10/15/19 22 10/14/2021 UA DIP CS ADVAN TUS color -advantus yellow yellow Not Available [facility] [address] [place] [address], [place], [address], 10/14/2021 14:10:16 10/15/19 22 10/14/2021 UA DIP CS ADVAN TUS appearance -advantus clear clear Not Available [facility] [address] [place] [address] [address], [place], [address], 10/14/2021 14:10:16 10/15/19 22 10/14/2021 UA DIP CS ADVAN TUS glucose -advantus negati ve mg/dL negati ve Not Available [facility] [address], [place], [address], 10/14/2021 14:10:16 10/15/19 22 10/14/2021 UA DIP CS ADVAN TUS bilirubin -advantus negati ve negati ve Not Available [facility] [address], [place], [address], 10/14/2021 14:10:16 10/15/19 22 10/14/2021 UA DIP CS ADVAN TUS ketones -advantus trace mg/dL negati ve abnormal Not Available [facility] [address] [place] [address] [address], [place], [address], 10/14/2021 14:10:16 10/15/19 22 10/14/2021 UA DIP CS ADVAN TUS sp. gravity -advantus 1.025 1.010- 1.025 Not Available [facility] [address] [place] [address] [address], [place], [address], 10/14/2021 14:10:16 10/15/19 22 10/14/2021 UA DIP CS ADVAN TUS pH -advantus 5.5 5.0-8. 0 Not Available [facility] [address] [place] [address] [address], [place], [address], 10/14/2021 14:10:16 10/15/19 22 10/14/2021 UA DIP CS ADVAN TUS protein -advantus 30 mg/dL negati ve abnormal Not Available [facility] [address] [place] [address] [address], [place], [address], 10/14/2021 14:10:16 10/15/19 22 10/14/2021 UA DIP CS ADVAN TUS urobilinogen -advantus 0.2 normal Not Available [facility] [address] [facility] [address], [place], [address], 10/14/2021 14:10:16 07/15/20 22 10/14/2021 UA DIP CS ADVAN TUS nitrites -advantus negati ve negati ve Not Available [facility] [address], [place], [address], 10/14/2021 14:10:16 10/15/19 22 10/14/2021 UA DIP CS ADVAN TUS blood -advantus large negati ve abnormal Not Available [facility] [address] [place] [address] [address], [place], [address], 10/14/2021 14:10:16 10/15/19 22 10/14/2021 UA DIP CS ADVAN TUS leukocytes -advantus large negati ve abnormal Not Available [facility] [address] [place] [address] [address], [place], [address], 10/14/2021 14:10:16 10/15/19 22 10/14/2021 UA DIP CS ADVAN TUS performed by yolanda Fabian Not Available [facility] [address], [place], [address], 10/14/2021 14:10:16 10/15/19 22 10/14/2021 UA DIP CS ADVAN TUS total urine volume (mL) 40 /mL Not Available [facility] [address] [place] [address] [address], [place], [address], 10/14/2021 14:10:16 10/15/19 22 10/14/2021 UA MICRO SCOPI C U-WBC packed [hpf] 0 - 2 abnormal Not Available [facility] [address], [place], [address], 10/14/2021 14:10:17 10/15/19 22 10/14/2021 UA MICRO SCOPI C U-RBC 2 - 5 [hpf] 0 - 2 abnormal Not Available [facility] [address], [place], [address], 10/14/2021 14:10:17 10/15/19 22 10/14/2021 UA MICRO SCOPI C bacteria modera te [hpf] negati ve abnormal Not Available [facility] [address] [facility] [address], [place], [address], 10/14/2021 14:10:17 10/15/19 22 10/14/2021 UA MICRO SCOPI C squamous epi negati ve /lpf negati ve,sma ll Not Available [facility] [address] [facility] [address], [place], [address], 10/14/2021 14:10:17 10/15/19 22 10/14/2021 PSA, TOTAL PSA, total 1.43 NG/mL 0.00-4 .00 Not Available [facility] [address] [facility] [address], [place], [address], 10/14/2021 15:07:04 10/15/19 22 10/14/2021 URINE CULTU RE final report microb iology result s Not Available [facility] [address] [facility] [address], [place], [address], 10/18/2021 09:16:20 11/03/19 22 11/07/2021 PROST ATE CNB PC-ON LY # - 12 report title commen t Not Available [employer] [address] [place], [address], 11/07/2021 10:14:01 11/03/19 22 11/07/2021 PROST ATE CNB PC-ON LY # - 12 clinical information commen t Not Available [employer] [address] [place], [address], 11/07/2021 10:14:01 11/03/19 22 11/07/2021 PROST ATE CNB PC-ON LY # - 12 specimen source commen t Not Available [employer] [address] [place], [address], 11/07/2021 10:14:01 08/03/20 22 11/07/2021 PROST ATE CNB PC-ON LY # - 12 gross description commen t Not Available [employer] [address] [place], [address], 11/07/2021 10:14:01 11/03/19 22 11/07/2021 PROST ATE CNB PC-ON LY # - 12 diagnosis commen t Not Available [employer] [address] [place], [address], 11/07/2021 10:14:01 11/03/19 22 11/07/2021 PROST ATE CNB PC-ON LY # - 12 codes commen t Not Available [employer] [address] [place], [address], 11/07/2021 10:14:01 11/03/19 22 11/07/2021 PROST ATE CNB PC-ON LY # - 12 specimen source commen t Not Available [employer] [address] [place], [address], 11/07/2021 10:14:01 11/03/19 22 11/07/2021 PROST ATE CNB PC-ON LY # - 12 gross description commen t Not Available [employer] [address] [place], [address], 11/07/2021 10:14:01 11/03/19 22 11/07/2021 PROST ATE CNB PC-ON LY # - 12 diagnosis commen t Not Available [employer] [address] [place], [address], 11/07/2021 10:14:01 11/03/19 22 11/07/2021 PROST ATE CNB PC-ON LY # - 12 codes commen t Not Available [employer] [address] [place], [address], 11/07/2021 10:14:01 11/03/19 22 11/07/2021 PROST ATE CNB PC-ON LY # - 12 specimen source commen t Not Available [employer] [address] [place], [address], 11/07/2021 10:14:01 11/03/19 22 11/07/2021 PROST ATE CNB PC-ON LY # - 12 gross description commen t Not Available [employer] [address] [place], [address], 11/07/2021 10:14:01 11/03/19 22 11/07/2021 PROST ATE CNB PC-ON LY # - 12 diagnosis commen t Not Available [employer] [address] [place], [address], 11/07/2021 10:14:01 11/03/19 22 11/07/2021 PROST ATE CNB PC-ON LY # - 12 codes commen t Not Available [employer] [address] [place], [address], 11/07/2021 10:14:01 11/03/19 22 11/07/2021 PROST ATE CNB PC-ON LY # - 12 specimen source commen t Not Available [employer] [address] [place], [address], 11/07/2021 10:14:01 11/03/19 22 11/07/2021 PROST ATE CNB PC-ON LY # - 12 gross description commen t Not Available [employer] [address] [place], [address], 11/07/2021 10:14:01 11/03/19 22 11/07/2021 PROST ATE CNB PC-ON LY # - 12 diagnosis commen t Not Available [employer] [address] [place], [address], 11/07/2021 10:14:01 11/03/19 22 11/07/2021 PROST ATE CNB PC-ON LY # - 12 codes commen t Not Available [employer] [address] [place], [address], 11/07/2021 10:14:01 11/03/19 22 11/07/2021 PROST ATE CNB PC-ON LY # - 12 specimen source commen t Not Available [employer] [address] [place], [address], 11/07/2021 10:14:01 11/03/19 22 11/07/2021 PROST ATE CNB PC-ON LY # - 12 gross description commen t Not Available [employer] [address] [place], [address], 11/07/2021 10:14:01 11/03/19 22 11/07/2021 PROST ATE CNB PC-ON LY # - 12 diagnosis commen t Not Available [employer] [address] [place], [address], 11/07/2021 10:14:01 11/03/19 22 11/07/2021 PROST ATE CNB PC-ON LY # - 12 codes commen t Not Available [employer] [address] [place], [address], 11/07/2021 10:14:01 11/03/19 22 11/07/2021 PROST ATE CNB PC-ON LY # - 12 specimen source commen t Not Available [employer] [address] [place], [address], 11/07/2021 10:14:01 11/03/19 22 11/07/2021 PROST ATE CNB PC-ON LY # - 12 gross description commen t Not Available [employer] [address] [place], [address], 11/07/2021 10:14:01 11/03/19 22 11/07/2021 PROST ATE CNB PC-ON LY # - 12 diagnosis commen t Not Available [employer] [address] [place], [address], 11/07/2021 10:14:01 11/03/19 22 11/07/2021 PROST ATE CNB PC-ON LY # - 12 codes commen t Not Available [employer] [address] [place], [address], 11/07/2021 10:14:01 11/03/19 22 11/07/2021 PROST ATE CNB PC-ON LY # - 12 specimen source commen t Not Available [employer] [address] [place], [address], 11/07/2021 10:14:01 11/03/19 22 11/07/2021 PROST ATE CNB PC-ON LY # - 12 gross description commen t Not Available [employer] [address] [place], [address], 11/07/2021 10:14:01 11/03/19 22 11/07/2021 PROST ATE CNB PC-ON LY # - 12 diagnosis commen t Not Available [employer] [address] [place], [address], 11/07/2021 10:14:01 11/03/19 22 11/07/2021 PROST ATE CNB PC-ON LY # - 12 codes commen t Not Available [employer] [address] [place], [address], 11/07/2021 10:14:01 11/03/19 22 11/07/2021 PROST ATE CNB PC-ON LY # - 12 specimen source commen t Not Available [employer] [address] [place], [address], 11/07/2021 10:14:01 11/03/19 22 11/07/2021 PROST ATE CNB PC-ON LY # - 12 gross description commen t Not Available [employer] [address] [place], [address], 11/07/2021 10:14:01 11/03/19 22 11/07/2021 PROST ATE CNB PC-ON LY # - 12 diagnosis commen t Not Available [employer] [address] [place], [address], 11/07/2021 10:14:01 11/03/19 22 11/07/2021 PROST ATE CNB PC-ON LY # - 12 codes commen t Not Available [employer] [address] [place], [address], 11/07/2021 10:14:01 11/03/19 22 11/07/2021 PROST ATE CNB PC-ON LY # - 12 specimen source commen t Not Available [employer] [address] [place], [address], 11/07/2021 10:14:01 11/03/19 22 11/07/2021 PROST ATE CNB PC-ON LY # - 12 gross description commen t Not Available [employer] [address] [place], [address], 11/07/2021 10:14:01 11/03/19 22 11/07/2021 PROST ATE CNB PC-ON LY # - 12 diagnosis commen t Not Available [employer] [address] [place], [address], 11/07/2021 10:14:01 11/03/19 22 11/07/2021 PROST ATE CNB PC-ON LY # - 12 codes commen t Not Available [employer] [address] [place], [address], 11/07/2021 10:14:01 11/03/19 22 11/07/2021 PROST ATE CNB PC-ON LY # - 12 specimen source commen t Not Available [employer] [address] [place], [address], 11/07/2021 10:14:01 11/03/19 22 11/07/2021 PROST ATE CNB PC-ON LY # - 12 gross description commen t Not Available [employer] [address] [place], [address], 11/07/2021 10:14:01 11/03/19 22 11/07/2021 PROST ATE CNB PC-ON LY # - 12 diagnosis commen t Not Available [employer] [address] [place], [address], 11/07/2021 10:14:01 11/03/19 22 11/07/2021 PROST ATE CNB PC-ON LY # - 12 codes commen t Not Available [employer] [address] [place], [address], 11/07/2021 10:14:01 11/03/19 22 11/07/2021 PROST ATE CNB PC-ON LY # - 12 specimen source commen t Not Available [employer] [address] [place], [address], 11/07/2021 10:14:01 11/03/19 22 11/07/2021 PROST ATE CNB PC-ON LY # - 12 gross description commen t Not Available [employer] [address] [place], [address], 11/07/2021 10:14:01 11/03/19 22 11/07/2021 PROST ATE CNB PC-ON LY # - 12 diagnosis commen t Not Available [employer] [address] [place], [address], 11/07/2021 10:14:01 11/03/19 22 11/07/2021 PROST ATE CNB PC-ON LY # - 12 codes commen t Not Available [employer] [address] [place], [address], 11/07/2021 10:14:01 11/03/19 22 11/07/2021 PROST ATE CNB PC-ON LY # - 12 specimen source commen t Not Available [employer] [address] [place], [address], 11/07/2021 10:14:01 11/03/19 22 11/07/2021 PROST ATE CNB PC-ON LY # - 12 gross description commen t Not Available [employer] [address] [place], [address], 11/07/2021 10:14:01 11/03/19 22 11/07/2021 PROST ATE CNB PC-ON LY # - 12 diagnosis commen t Not Available [employer] [address] [place], [address], 11/07/2021 10:14:01 11/03/19 22 11/07/2021 PROST ATE CNB PC-ON LY # - 12 codes commen t Not Available [employer] [address] [place], [address], 11/07/2021 10:14:01 11/03/19 22 11/07/2021 PROST ATE CNB PC-ON LY # - 12 core mapping commen t Not Available [employer] [address] [place], [address], 11/07/2021 10:14:01 11/03/19 22 11/07/2021 PROST ATE CNB PC-ON LY # - 12 case comment commen t Not Available [employer] [address] [place], [address], 11/07/2021 10:14:01 11/03/19 22 11/07/2021 PROST ATE CNB PC-ON LY # - 12 pathologist commen t Not Available [employer] [address] [place], [address], 11/07/2021 10:14:01 11/03/19 22 11/07/2021 PROST ATE CNB PC-ON LY # - 12 TC stain table commen t Not Available [employer] [address] [place], [address], 11/07/2021 10:14:01 11/03/19 22 11/07/2021 PROST ATE CNB PC-ON LY # - 12 performing labs commen t Not Available [employer] [address] [place], [address], 11/07/2021 10:14:01 11/03/19 22 11/07/2021 PROST ATE CNB PC-ON LY # - 12 professional component performed commen t Not Available [employer] [address] [facility], [place], [address], 11/07/2021 10:14:01 11/29/19 22 11/28/2021 UA DIP CS ADVAN TUS color -advantus yellow yellow Not Available [facility] [address] [place] [address] [address], [place], [address], 11/28/2021 13:57:58 11/29/19 22 11/28/2021 UA DIP CS ADVAN TUS appearance -advantus turbid clear abnormal Not Available [facility] [address] [place] [address] [address], [place], [address], 11/28/2021 13:57:58 11/29/19 22 11/28/2021 UA DIP CS ADVAN TUS glucose -advantus negati ve mg/dL negati ve Not Available [facility] [address] [place] [address] [address], [place], [address], 11/28/2021 13:57:58 11/29/19 22 11/28/2021 UA DIP CS ADVAN TUS bilirubin -advantus negati ve negati ve Not Available [facility] [address] [place] [address] [address], [place], [address], 11/28/2021 13:57:58 11/29/19 22 11/28/2021 UA DIP CS ADVAN TUS ketones -advantus negati ve mg/dL negati ve Not Available [facility] [address] [place] [address], [place], [address], 11/28/2021 13:57:58 11/29/19 22 11/28/2021 UA DIP CS ADVAN TUS sp. gravity -advantus <=1.00 5 1.010- 1.025 Not Available [facility] [address] [place] [address] [address], [place], [address], 11/28/2021 13:57:58 11/29/19 22 11/28/2021 UA DIP CS ADVAN TUS pH -advantus 5.0 5.0-8. 0 Not Available [facility] [address] [facility] [place] [address], [place], [address], 11/28/2021 13:57:58 11/29/19 22 11/28/2021 UA DIP CS ADVAN TUS protein -advantus negati ve mg/dL negati ve Not Available [facility] [address] [place] [address] [address], [place], [address], 11/28/2021 13:57:58 11/29/19 22 11/28/2021 UA DIP CS ADVAN TUS urobilinogen -advantus 0.2 normal Not Available [facility] [address] [place] [address] [address], [place], [address], 11/28/2021 13:57:58 11/29/19 22 11/28/2021 UA DIP CS ADVAN TUS nitrites -advantus positi ve negati ve abnormal Not Available [facility] [address] [facility] [place] [address], [place], [address], 11/28/2021 13:57:58 11/29/19 22 11/28/2021 UA DIP CS ADVAN TUS blood -advantus modera te negati ve abnormal Not Available [facility] [address] [facility] [place] [address], [place], [address], 11/28/2021 13:57:58 11/29/19 22 11/28/2021 UA DIP CS ADVAN TUS leukocytes -advantus large negati ve abnormal Not Available [facility] [address] [place] [address] [address], [place], [address], 11/28/2021 13:57:58 11/29/19 22 11/28/2021 UA DIP CS ADVAN TUS performed by toua T Not Available [facility] [address] [facility] [place] [address], [place], [address], 11/28/2021 13:57:58 11/29/19 22 11/28/2021 UA DIP CS ADVAN TUS total urine volume (mL) 20 /mL Not Available [facility] [address] [place] [address], [place], [address], 11/28/2021 13:57:58 11/29/19 22 11/28/2021 UA MICRO SCOPI C U-WBC 50 - 100 [hpf] 0 - 2 abnormal Not Available [facility] [address] [place] [address], [place], [address], 11/28/2021 13:58:02 11/29/19 22 11/28/2021 UA MICRO SCOPI C U-RBC 0 - 2 [hpf] 0 - 2 Not Available [facility] [address] [facility] [place] [address], [place], [address], 11/28/2021 13:58:02 11/29/19 22 11/28/2021 UA MICRO SCOPI C bacteria large [hpf] negati ve abnormal Not Available [facility] [address] [place] [address], [place], [address], 11/28/2021 13:58:02 11/29/19 22 11/28/2021 UA MICRO SCOPI C squamous epi small /lpf negati ve,sma ll Not Available [facility] [address] [place] [address], [place], [address], 11/28/2021 13:58:02 11/29/19 22 11/28/2021 URINE CULTU RE final report microb iology result s abnormal Not Available [facility] [address] [place] [address], [place], [address], 11/30/2021 12:44:23 Result Notes None recorded. Procedures Surgical History Date Name Laterality Status Provider Name and Address Organization Details Recorded Time 2 Fill and Pull/Voiding Trial/TOV completed ESTUARDO Cueva [address] [facility],[address], [place], [address], [facility] 01/23/2022 11:13:28 2 Urine Culture completed Marlin sheriff, [facility] 11/28/2021 13:31:33 2 Urinalysis completed Marlin Perea [facility], [facility] 11/28/2021 13:31:29 2 Prostate Biopsy Procedure completed Keagan Wallace MD [address] [facility],[address], [place], [address], [facility] 11/02/2021 12:52:14 2 Rocephin/Ceftri axone [facility] 11/02/2021 12:10:53 2 Blood Draw/TAG PRESS OPERATOR/PSA RESULTS completed Ks Rocio [facility] 10/14/2021 12:12:37 2 Thompson Catheter Insertion completed Nat Gilliland [facility] 10/14/2021 12:39:05 2 Bladder Scan completed Nat Gilliland [facility] 10/14/2021 12:38:15 2 Urine Culture completed Ks Rocio [facility] 09/15/2021 11:54:01 2 Urinalysis completed Nona Chan [facility] 09/15/2021 11:54:09 2 [facility]adder [facility]09[facility] 14:17:17 1 Colonoscopy completed Margaret Sykes [facility] 09/09/2021 14:17:03 Imaging Results None recorded. Procedure Notes None recorded. Medical Equipment None Reported. Medications Name Sig Start Date Stop Date Status Note LastModified by Organization Details LastModified Time ciprofloxacin 250 mg tablet TAKE 2 TABLETS BY MOUTH 2 TIMES DAILY FOR 7 DAYS. active Not Available Not Available No t Available ciprofloxacin 500 mg tablet TAKE 1 TABLET TWICE A DAY active Not Available Not Available No t Available sulfamethoxaz ole 800 mg-trimethopr im 160 mg tablet TAKE 1 TABLET BY MOUTH TWICE A DAY active Not Available Not Available No t Available aspirin 81 mg tablet,delaye d release TAKE 1 TABLET BY MOUTH EVERY DAY active Not Available Not Available No t Available carvedilol 3.125 mg tablet TAKE 1 TABLET BY MOUTH TWICE A DAY WITH MEALS active Not Available Not Available No t Available ceftriaxone 1 gram solution for injection Take 1 g by injection route. 2021 active Not Available Not Available Not Avai lable cephalexin 500 mg capsule TAKE 1 CAP BY MOUTH 2 TIMES DAILY FOR 10 DAYS active Not Available Not Available No t Available metoprolol succinate ER 25 mg tablet,extend ed release 24 hr TAKE 1 TABLET (25 MG) BY MOUTH DAILY active Not Available Not Available No t Available cefdinir 300 mg capsule TAKE 1 CAPSULE BY MOUTH TWICE A DAY FOR 7 DAYS active Not Available Not Available No t Available oxycodone 5 mg tablet active Not Available Not Available No t Available Eliquis 5 mg tablet TAKE 1 TABLET BY MOUTH TWICE A DAY active Not Available Not Available No t Available Vitals Date Recorded Body height Provider Name an d Address Organization Details Last Updated DateTime 10/14/2021 180.34 cm Nat sheriff [facility] 10/14/2021 12:37:10 Date Recorded Body height Body mass index (BMI) Body weight Provider Name and Address Organization Details Last Updated DateTime 11/02/2021 180.34 cm 27.9 kg/m2 36717.47 g Joseluis sheriff [facility] 11/02/2021 12:34:23 Date Recorded Body height Body mass index (BMI) Body weight Provider Name and Address Organization Details Last Updated DateTime 01/23/2022 180.34 cm 27.9 kg/m2 61263.47 g Sherrie sheriff [facility] 01/23/2022 10:50:52 Date Recorded Body height Body mass index (BMI) Body weight Provider Name and Address Organization Details Last Updated DateTime 09/09/2021 180.34 cm 27.9 kg/m2 08302.47 g Margaret sheriff [facility] 09/09/2021 14:16:16 Social History Question Answer Notes LastModified by Organizat ion Details LastModified Time Tobacco Smoking Status Never Smoker SOHEILA Figueroa [facility] 09/09/2021 14:16:45 What Is Your Level Of Alcohol Consumption? None [email or web address] Information not available 11/02/2021 What Is Your Level Of Caffeine Consumption? Moderate [email or web address] Information not available 11/02/2021 What Was The Date Of Your Most Recent Tobacco Screening? 11/02/2021 Information not available 11/02/2021 Do You Use Any Illicit Or Recreational Drugs? No [email or web address] Information not available 11/02/2021 Has Tobacco Cessation Counseling Been Provided? Yes [email or web address] Information not available 11/02/2021 On What Date Was Tobacco Cessation Counseling Provided? 11/02/2021 [email or web address] Information not available 11/02/2021 Do You Or Have You Ever Used Any Other Forms Of Tobacco Or Nicotine? No [email or web address] Information not available 11/02/2021 Sex: Male Functional Status None recorded. Mental Status None recorded. Family History Nothing Reported. Medical History No medical history recorded. Immunizations Vaccine Type Date Status Provider Name and Address Organization Details Recorded Time Td (adult), 5 Lf tetanus toxoid, preservative free, adsorbed 08/23/2020 completed SOHEILA Figueroa [facility] 09/09/2021 14:16:22 COVID-19, mRNA, LNP-S, PF, 100 mcg/0.5mL dose or 50 mcg/0.25mL dose 03/18/2021 completed SOHEILA Figueroa [facility] 09/09/2021 14:16:22 Past Encounters Encounter ID Performer Location Encounter Start Date Encounter Closed Date Diagnosis/Indication [id number] Keagan Wallace MD [facility] [place] [address] [facility],[address] [address] 09/09/2021 13:50:11 09/09/2021 14:51:05 Prostatitis Incomplete emptying of bladder Prostate nodule [id number] Va Rocio [facility] ry [address] [facility],[address] [address] 09/15/2021 11:49:42 09/15/2021 11:56:05 Dysuria [id number] Nat Gilliland [facility] ry [address] [place] [phone] 10/14/2021 11:27:59 10/14/2021 15:28:24 Urinary tract infectious disease Retention of urine [id number] Nona Chan [facility] ry [address] [place] [address],[address] [address] 10/14/2021 12:03:41 10/14/2021 12:13:20 Prostate specific antigen above reference range [id number] Keagan Wallace MD [facility] ry [address] [place] [id number] 11/02/2021 12:06:05 11/02/2021 13:33:50 Prostate nodule Recurrent urinary tract infection Prostatitis [id number] Yolanda Timmons [address] [address] 11/02/2021 12:05:27 11/02/2021 12:18:17 Prostate specific antigen above reference range [id number] Marlin Perea [address] [address] 11/28/2021 13:19:15 11/28/2021 14:05:35 Retention of urine [id number] ESTUARDO Cueva [address] [address] 01/23/2022 10:48:29 01/23/2022 11:45:38 Lower urinary tract symptoms due to benign prostatic hypertrophy Health Concerns Section Related Observation LastModified by Organization Detai ls LastModified Time None Recorded Concern Status LastModified by Organization Details LastModified Time None Recorded Advance Directives Directive None Recorded Payers Encounter Date Sequence Insurance Name Policy Number Policy Nj Covered Member ID Nj Member ID Guarantor Name 01/23/2022 1 [place] [id number] Marlon Benton [id number] Marlon Benton 11/28/2021 1 [place] [id number] Marlon Benton [id number] Marlon Benton 11/02/2021 [place] [id number] Marlon Betnon [id number] Marlon Rodriguezugh 11/02/2021 1 [place] [id number] Marlon Rodriguezugh [id number] Marlon Rodriguezugh 10/14/2021 1 [place] [id number] Marlon Michelonough [id number] Marlon Rodriguezugh 10/14/2021 1 [place] [id number] Marlon Rodriguezugh [id number] Marlon Rodriguezugh 09/15/2021 1 [place] [id number] Marlon Rodriguezugh [id number] Marlon Rodriguezugh 09/09/2021 1 [place] [id number] Marlon Benton [id number] Marlon Benton Notes Date Note Type Note Provider Name and Address Organization Details Recorded Time 09/09/2021 text/html HPI Notes: This is a 71 year old male who is referred by Dr. Benton for the evaluation and management of benign prostatic hyperplasia with lower urinary tract symptoms, a recent episode of prostatitis, and a prostate nodule. He has struggled with worsening obstructive and irritative voiding symptoms for more than 10 years. He has a history of prostatitis in the early which required a course of antibiotic therapy. He presented to Dr. Crum for the evaluation of worsening irritative voiding symptoms, cloudy urine, sensation of incomplete emptying, and dysuria in May. Examination revealed a prostate nodule as well as signs of acute bacterial prostatitis. He was treated with a course of Bactrim DS for 3 weeks. His symptoms are improved since completing his antibiotics. He denies gross hematuria. Keagan Wallace MD [address] [facility],[address], [place], [address], [facility] 09/09/2021 14:45:27 11/02/2021 text/html HPI Notes: This is a 71 year old male with a history of lower urinary tract symptoms, recurrent episodes of prostatitis, and a prostate nodule who is here for prostate biopsy. He has struggled with worsening obstructive and irritative voiding symptoms for more than 10 years. He has a history of prostatitis in the early which required a course of antibiotic therapy. He presented to Dr. Crum for the evaluation of worsening irritative voiding symptoms, cloudy urine, sensation of incomplete emptying, and dysuria in May. Examination revealed a prostate nodule as well as signs of acute bacterial prostatitis. He was treated with a course of Bactrim DS for 3 weeks. On examination 09/09/2021 he was again felt to have a grossly abnormal exam worrisome for malignancy. His prostate specific antigen post-treatment of his prostatitis episode was 1.43 ng/mL (10/14/2021). He is here today for prostate biopsy. Keagan Wallace MD [address] [place] [address],[address], [address], [facility] 11/02/2021 12:52:18 01/23/2022 text/html HPI Notes: This is a 71 year old male with a history of lower urinary tract symptoms, recurrent episodes of prostatitis, and a prostate nodule who is now s/p TURP with Dr. Wallace on 01/20/2022 Presents for voiding trial today ESTUARDO Cueva [address] [place] [address],[address], [place], [address], [facility] 01/23/2022 11:15:08
== END 2023-04-05 10:09 | disposition home or self-care (01) ==
LOC: NFLDREF 04-11 19:52
PROVIDERS: PCP Family Medicine; Referring Provider Family Medicine; Visit Provider Family Medicine
DX: N39.0 Urinary tract infection, site not specified (principal); R31.0 Gross hematuria
CPT/HCPCS: 87086

== ENCOUNTER 2023-04-13 10:15 | Outpatient (CLI) | payer MEDICARE, SELFPAY ==
--- OUTSIDE RECORDS SUMMARY | 2023-04-13 10:18 | XMS_ITS | Referral Summary ---
Author Name Unknown Organization [facility] Address [address] [place] [address] Care Team Providers Care Green Chain Operator Name Role Phone No Ref-Primary, Physician Primary Care Provider Lino Radford DO Unavailable [phone] Allergies No known active allergies Medications [...] of Treatment Not on file Care Teams Green Chain Operator Relationship Specialty Start Date End Date No Ref-Primary, Physician PCP - General 07/15/20 [place] [address] [place] [address] Assigned PCP 08/26/20
--- OUTSIDE RECORDS SUMMARY | 2023-04-13 10:18 | XMS_ITS | Encounter Summary ---
Author Name Unknown Organization [facility] Address [address] [place] [address] Care Team Providers Care Diesel Engine I Pipe Fitter Name Role Phone No Ref-Primary, Physician Primary Care Provider Lino Radford DO Unavailable [phone] Wilian Castañeda MD Unavailable [phone] Justine Laurent PA-C Unavailable Encounter Details Date [...] on filedocumented in this encounter Care Teams Diesel Engine I Pipe Fitter Relationship Specialty Start Date End Date No Ref-Primary, Physician PCP - General 07/15/20 [place] [address] [place] [address] Assigned PCP 08/26/20 Wilian Castañeda MD [address] [place]ERE[place] 770395 Assigned Heart and Vascular Provider 09/12/20 04/28/22 Justine Laurent PA-C [address] [place] [address]45315 Assigned Surgical Provider 01/02/21 documented as of this encounter
--- OUTSIDE RECORDS SUMMARY | 2023-04-13 10:18 | XMS_ITS | Encounter Summary ---
Author Name Unknown Organization [facility] Address [address] [place] [address] Care Team Providers Care Maintenance Mechanic Name Role Phone No Ref-Primary, Physician Primary Care Provider Lino Radford DO Unavailable [phone] Wilian Castañeda MD Unavailable [phone] Justine Laurent PA-C Unavailable Encounter Details Date Type Department Care Team (Late st Contact Info) Description 11/03/2021 [facility] Medical Advice [address] [address] Roberta Traore, SUPERVISOR [employer]LECT[employer] TESTING Social History Tobacco Use Types Packs/Day Years [...] on filedocumented in this encounter Care Teams Maintenance Mechanic Relationship Specialty Start Date End Date No Ref-Primary, Physician PCP - General 07/15/20 [place] [address] [place] [address] Assigned PCP 08/26/20 Wilian Castañeda MD [address] [place] [address] Assigned Heart and Vascular Provider 09/12/20 04/28/22 Justine Laurent PA-C [address] [place] [address] Assigned Surgical Provider 01/02/21 documented as of this encounter
--- OUTSIDE RECORDS SUMMARY | 2023-04-13 10:18 | XMS_ITS | Clinical Summary ---
Author Name Unknown Organization [facility] Address [address] [place] [address] Care Team Providers Care Structural Fitter Name Role Phone No Ref-Primary, Physician Primary Care Provider Lino Radford DO Unavailable [phone] Allergies No known active allergies Medications [...] age to complete this topic Care Teams Structural Fitter Relationship Specialty Start Date End Date No Ref-Primary, Physician PCP - General 07/15/20 [place] [address] [place] [address] Assigned PCP 08/26/20
--- OUTSIDE RECORDS SUMMARY | 2023-04-13 10:18 | XMS_ITS | Clinical Summary ---
Author Name Unknown Organization [employer] [facility] Address [place], [place] [address] Care Team Providers Care Art Objects Repairer Name Role Phone Yelena Multani Primary Care [...] Code Status Discussion: Not Discussed Care Teams Art Objects Repairer Relationship Specialty Start Date End Date Yelena Multani DO [address] [place] [address] PCP - General Family Practice 01/02/22
--- OUTSIDE RECORDS SUMMARY | 2023-04-13 10:19 | XMS_ITS | Data Portability ---
Author Name Unknown Address [address] [place] [address] Phone [phone] Organization [facility], [facility] Address [address] [place] [address] Assessment Encounter Date Assessment Date Assessment LastModified by Organization Details LastModified Time 09/09/2021 09/09/2021 71 year old male with benign prostatic hyperplasia with lower urinary tract symptoms, a recent episode of prostatitis, and a prostate nodule. [email or web address] Not available 09/09/2021 14:42:54 11/02/2021 11/02/2021 71 [...] None recorded. Lab urinalysis, dipstick 2021 022 [facility], [address], [place], [address], 13:57:58 culture, urine 2021 022 [facility], [address], [address], [place], [address], 2 12:44:23 biopsy, prostate 2021 022 [facility], [address], [address], [place], [address], 14:42:54 urinalysis, dipstick 2021 022 [facility], [address], [place], [address], 14:10:16 culture, urine 2021 022 [facility], [address], [place], [address], 09:16:20 PSA, total, serum or plasma 2021 022 [facility], [address], [place], [address], 15:07:04 urinalysis, dipstick 2021 022 [facility], [address], [place], [address], 12:06:27 culture, urine 2021 022 [facility], [address], [place], [address], 09:41:11 urinalysis, dipstick 2021 022 [facility], [address], [address], 14:50:42 prostate specific Ag, serum or plasma 2021 022 [facility], [address], [place], [address], 08:50:34 Referral None recorded. Procedures None recorded. Surgeries None recorded. Imaging None recorded. Medication Orders ceftriaxone 1 gram solution for injection 2021 022 [id number], [address], [place], [address], 12:13:20 ciprofloxac in 500 mg tablet 2021 022 [id number], [address], [place], [address], 14:45:03 Patient TargetsNo targets recorded. Patient Instructions Encounter Date Encounter Id Patient Instructions Last Modified By Organization Details Last Modified Time 01/23/2022 [id number] Hx of urinary retention, s/p TURP 01/20 [...] emptying. [email or web address] Not available 01/23/2022 11:14:53 11/02/2021 [id number] Prostate Nodule: The patient tolerated the procedure [...] our office. Not available 11/01/2021 16:50:07 09/09/2021 [id number] Prostate Nodule/Obstructiv e Urinary Symptoms: I am [...] -advantus yellow yellow Not Available [facility] [address], [place], [address], 09/09/2021 14:50:42 09/10/19 22 09/09/2021 UA DIP CS ADVAN TUS appearance -advantus clear clear Not Available [facility] [address], [place], [address], 09/09/2021 14:50:42 09/10/19 22 09/09/2021 UA DIP CS ADVAN TUS glucose -advantus negati ve mg/dL negati ve Not Available [facility] [address], [place], [address], 09/09/2021 14:50:42 09/10/19 22 09/09/2021 UA DIP CS ADVAN TUS bilirubin -advantus negati ve negati ve Not Available [facility] [address], [place], [address], 09/09/2021 14:50:42 09/10/19 22 09/09/2021 UA DIP CS ADVAN TUS ketones -advantus negati ve mg/dL negati ve Not Available [facility] [address], [place], [address], 09/09/2021 14:50:42 09/10/19 22 09/09/2021 UA DIP CS ADVAN TUS sp. gravity -advantus 1.020 1.010- 1.025 Not Available [facility] [address], [place], [address], 09/09/2021 14:50:42 09/10/19 22 09/09/2021 UA DIP CS ADVAN TUS pH -advantus 5.5 5.0-8. 0 Not Available [facility] [address], [place], [address], 09/09/2021 14:50:42 09/10/19 22 09/09/2021 UA DIP CS ADVAN TUS protein -advantus 30 mg/dL negati ve abnormal Not Available [facility] [address] [place] [address] [address], [place], [address], 09/09/2021 14:50:42 09/10/19 22 09/09/2021 UA DIP CS ADVAN TUS urobilinogen -advantus 0.2 normal Not Available [facility] [address], [place], [address], 09/09/2021 14:50:42 09/10/19 22 09/09/2021 UA DIP CS ADVAN TUS nitrites -advantus negati ve negati ve Not Available [facility] [address] [place] [address] [address], [place], [address], 09/09/2021 14:50:42 09/10/19 22 09/09/2021 UA DIP CS ADVAN TUS blood -advantus modera te negati ve abnormal Not Available [facility] [address] [place] [address] [address], [place], [address], 09/09/2021 14:50:42 09/10/19 22 09/09/2021 UA DIP CS ADVAN TUS leukocytes -advantus large negati ve abnormal Not Available [facility] [address] [place] [address] [address], [place], [address], 09/09/2021 14:50:42 09/10/19 22 09/09/2021 UA DIP CS ADVAN TUS performed by sylvester Case Not Available [facility] [address] [place] [address] [address], [place], [address], 09/09/2021 14:50:42 09/10/19 22 09/09/2021 UA DIP CS ADVAN TUS total urine volume (mL) 80 /mL Not Available [facility] [address] [place] [address] [address], [place], [address], 09/09/2021 14:50:42 09/10/19 22 09/09/2021 UA MICRO SCOPI C U-WBC 50 - 100 [hpf] 0 - 2 abnormal Not Available [facility] [address] [place] [address] [address], [place], [address], 09/09/2021 14:50:43 09/10/19 22 09/09/2021 UA MICRO SCOPI C U-RBC 0 - 2 [hpf] 0 - 2 Not Available [facility] [address], [place], [address], 09/09/2021 14:50:43 09/10/19 22 09/09/2021 UA MICRO SCOPI C bacteria small [hpf] negati ve abnormal Not Available [facility] [address] [place] [address] [address], [place], [address], 09/09/2021 14:50:43 09/10/19 22 09/09/2021 UA MICRO SCOPI C squamous epi small /lpf negati ve,sma ll Not Available [facility] [address] [place] [address] [address], [place], [address], 09/09/2021 14:50:43 09/16/19 22 09/15/2021 UA DIP CS ADVAN TUS color -advantus yellow yellow Not Available [facility] [address] [place] [address] [address], [place], [address], 09/15/2021 12:06:27 09/16/19 22 09/15/2021 UA DIP CS ADVAN TUS appearance -advantus cloudy clear abnormal Not Available [facility] [address], [place], [address], 09/15/2021 12:06:27 09/16/19 22 09/15/2021 UA DIP CS ADVAN TUS glucose -advantus negati ve mg/dL negati ve Not Available [facility] [address] [place] [address] [address], [place], [address], 09/15/2021 12:06:27 09/16/19 22 09/15/2021 UA DIP CS ADVAN TUS bilirubin -advantus negati ve negati ve Not Available [facility] [address] [place] [address] [address], [place], [address], 09/15/2021 12:06:27 09/16/19 22 09/15/2021 UA DIP CS ADVAN TUS ketones -advantus negati ve mg/dL negati ve Not Available [facility] [address] [place] [address] [address], [place], [address], 09/15/2021 12:06:27 09/16/19 22 09/15/2021 UA DIP CS ADVAN TUS sp. gravity -advantus 1.025 1.010- 1.025 Not Available [facility] [address] [place] [address] [address], [place], [address], 09/15/2021 12:06:27 09/16/19 22 09/15/2021 UA DIP CS ADVAN TUS pH -advantus 6.0 5.0-8. 0 Not Available [facility] [address] [place] [address] [address], [place], [address], 09/15/2021 12:06:27 09/16/19 22 09/15/2021 UA DIP CS ADVAN TUS protein -advantus 30 mg/dL negati ve abnormal Not Available [facility] [address], [place], [address], 09/15/2021 12:06:27 09/16/19 22 09/15/2021 UA DIP CS ADVAN TUS urobilinogen -advantus 0.2 normal Not Available [facility] [address], [place], [address], 09/15/2021 12:06:27 09/16/19 22 09/15/2021 UA DIP CS ADVAN TUS nitrites -advantus negati ve negati ve Not Available [facility] [address] [place] [address] [address], [place], [address], 09/15/2021 12:06:27 09/16/19 22 09/15/2021 UA DIP CS ADVAN TUS blood -advantus modera te negati ve abnormal Not Available [facility] [address] [place] [address] [address], [place], [address], 09/15/2021 12:06:27 09/16/19 22 09/15/2021 UA DIP CS ADVAN TUS leukocytes -advantus large negati ve abnormal Not Available [facility] [address], [place], [address], 09/15/2021 12:06:27 09/16/19 22 09/15/2021 UA DIP CS ADVAN TUS performed by kevan Bustillos Not Available [facility] [address] [place] [address] [address], [place], [address], 09/15/2021 12:06:27 09/16/19 22 09/15/2021 UA DIP CS ADVAN TUS total urine volume (mL) 60 /mL Not Available [facility] [address], [place], [address], 09/15/2021 12:06:27 09/16/19 22 09/15/2021 UA MICRO SCOPI C U-WBC packed [hpf] 0 - 2 abnormal Not Available [facility] [address], [place], [address], 09/15/2021 12:06:29 09/16/19 22 09/15/2021 UA MICRO SCOPI C U-RBC 2 - 5 [hpf] 0 - 2 abnormal Not Available [facility] [address] [place] [address] [address], [place], [address], 09/15/2021 12:06:29 09/16/19 22 09/15/2021 UA MICRO SCOPI C bacteria small [hpf] negati ve abnormal Not Available [facility] [address] [place] [address], [place], [address], 09/15/2021 12:06:29 09/16/19 22 09/15/2021 UA MICRO SCOPI C squamous epi negati ve /lpf negati ve,sma ll Not Available [facility] [address] [place] [address], [place], [address], 09/15/2021 12:06:29 09/16/19 22 09/15/2021 URINE CULTU RE final report microb iology result s Not Available [facility] [address] [place] [address], [place], [address], 09/17/2021 09:41:11 10/15/19 22 10/14/2021 UA DIP CS ADVAN TUS color -advantus yellow yellow Not Available [facility] [address] [place] [address], [place], [address], 10/14/2021 14:10:16 10/15/19 22 10/14/2021 UA DIP CS ADVAN TUS appearance -advantus clear clear Not Available [facility] [address] [place] [address] [address], [place], [address], 10/14/2021 14:10:16 10/15/19 22 10/14/2021 UA DIP CS ADVAN TUS glucose -advantus negati ve mg/dL negati ve Not Available [facility] [address], [place], [address], 10/14/2021 14:10:16 10/15/19 22 10/14/2021 UA DIP CS ADVAN TUS bilirubin -advantus negati ve negati ve Not Available [facility] [address], [place], [address], 10/14/2021 14:10:16 10/15/19 22 10/14/2021 UA DIP CS ADVAN TUS ketones -advantus trace mg/dL negati ve abnormal Not Available [facility] [address] [place] [address] [address], [place], [address], 10/14/2021 14:10:16 10/15/19 22 10/14/2021 UA DIP CS ADVAN TUS sp. gravity -advantus 1.025 1.010- 1.025 Not Available [facility] [address] [place] [address] [address], [place], [address], 10/14/2021 14:10:16 10/15/19 22 10/14/2021 UA DIP CS ADVAN TUS pH -advantus 5.5 5.0-8. 0 Not Available [facility] [address] [place] [address] [address], [place], [address], 10/14/2021 14:10:16 10/15/19 22 10/14/2021 UA DIP CS ADVAN TUS protein -advantus 30 mg/dL negati ve abnormal Not Available [facility] [address] [place] [address] [address], [place], [address], 10/14/2021 14:10:16 10/15/19 22 10/14/2021 UA DIP CS ADVAN TUS urobilinogen -advantus 0.2 normal Not Available [facility] [address], [place], [address], 10/14/2021 14:10:16 07/15/20 22 10/14/2021 UA DIP CS ADVAN TUS nitrites -advantus negati ve negati ve Not Available [facility] [address], [place], [address], 10/14/2021 14:10:16 10/15/19 22 10/14/2021 UA DIP CS ADVAN TUS blood -advantus large negati ve abnormal Not Available [facility] [address] [place] [address] [address], [place], [address], 10/14/2021 14:10:16 10/15/19 22 10/14/2021 UA DIP CS ADVAN TUS leukocytes -advantus large negati ve abnormal Not Available [facility] [address] [place] [address] [address], [place], [address], 10/14/2021 14:10:16 10/15/19 22 10/14/2021 UA DIP CS ADVAN TUS performed by yolanda Fabian Not Available [facility] [address], [place], [address], 10/14/2021 14:10:16 10/15/19 22 10/14/2021 UA DIP CS ADVAN TUS total urine volume (mL) 40 /mL Not Available [facility] [address] [place] [address] [address], [place], [address], 10/14/2021 14:10:16 10/15/19 22 10/14/2021 UA MICRO SCOPI C U-WBC packed [hpf] 0 - 2 abnormal Not Available [facility] [address], [place], [address], 10/14/2021 14:10:17 10/15/19 22 10/14/2021 UA MICRO SCOPI C U-RBC 2 - 5 [hpf] 0 - 2 abnormal Not Available [facility] [address], [place], [address], 10/14/2021 14:10:17 10/15/19 22 10/14/2021 UA MICRO SCOPI C bacteria modera te [hpf] negati ve abnormal Not Available [facility] [address] [facility] [address], [place], [address], 10/14/2021 14:10:17 10/15/19 22 10/14/2021 UA MICRO SCOPI C squamous epi negati ve /lpf negati ve,sma ll Not Available [facility] [address] [facility] [address], [place], [address], 10/14/2021 14:10:17 10/15/19 22 10/14/2021 PSA, TOTAL PSA, total 1.43 NG/mL 0.00-4 .00 Not Available [facility] [address] [facility] [address], [place], [address], 10/14/2021 15:07:04 10/15/19 22 10/14/2021 URINE CULTU RE final report microb iology result s Not Available [facility] [address] [facility] [address], [place], [address], 10/18/2021 09:16:20 11/03/19 22 11/07/2021 PROST ATE CNB PC-ON LY # - 12 report title commen t Not Available [employer] [facility] [place], [address], 11/07/2021 10:14:01 11/03/19 22 11/07/2021 PROST ATE CNB PC-ON LY # - 12 clinical information commen t Not Available [employer] [address] [place], [address], 11/07/2021 10:14:01 11/03/19 22 11/07/2021 PROST ATE CNB PC-ON LY # - 12 specimen source commen t Not Available [employer] [address] [place], [address], 11/07/2021 10:14:01 08/03/20 22 11/07/2021 PROST ATE CNB PC-ON LY # - 12 gross description commen t Not Available [employer] [address] [facility] [place], [address], 11/07/2021 10:14:01 11/03/19 22 11/07/2021 PROST ATE CNB PC-ON LY # - 12 diagnosis commen t Not Available [employer] [address] [facility] [place], [address], 11/07/2021 10:14:01 11/03/19 22 11/07/2021 PROST ATE CNB PC-ON LY # - 12 codes commen t Not Available [employer] [address] [facility] [place], [address], 11/07/2021 10:14:01 11/03/19 22 11/07/2021 PROST ATE CNB PC-ON LY # - 12 specimen source commen t Not Available [employer] [address] [place], [address], 11/07/2021 10:14:01 11/03/19 22 11/07/2021 PROST ATE CNB PC-ON LY # - 12 gross description commen t Not Available [employer] [address] [facility] [place], [address], 11/07/2021 10:14:01 11/03/19 22 11/07/2021 PROST ATE CNB PC-ON LY # - 12 diagnosis commen t Not Available [employer] [address] [facility] [place], [address], 11/07/2021 10:14:01 11/03/19 22 11/07/2021 PROST ATE CNB PC-ON LY # - 12 codes commen t Not Available [employer] [address] [facility] [place], [address], 11/07/2021 10:14:01 11/03/19 22 11/07/2021 PROST ATE CNB PC-ON LY # - 12 specimen source commen t Not Available [employer] [address] [place], [address], 11/07/2021 10:14:01 11/03/19 22 11/07/2021 PROST ATE CNB PC-ON LY # - 12 gross description commen t Not Available [employer] [address] [place], [address], 11/07/2021 10:14:01 11/03/19 22 11/07/2021 PROST ATE CNB PC-ON LY # - 12 diagnosis commen t Not Available [employer] [address] [place], [address], 11/07/2021 10:14:01 11/03/19 22 11/07/2021 PROST ATE CNB PC-ON LY # - 12 codes commen t Not Available [employer] [address] [place], [address], 11/07/2021 10:14:01 11/03/19 22 11/07/2021 PROST ATE CNB PC-ON LY # - 12 specimen source commen t Not Available [employer] [address] [place], [address], 11/07/2021 10:14:01 11/03/19 22 11/07/2021 PROST ATE CNB PC-ON LY # - 12 gross description commen t Not Available [employer] [address] [place], [address], 11/07/2021 10:14:01 11/03/19 22 11/07/2021 PROST ATE CNB PC-ON LY # - 12 diagnosis commen t Not Available [employer] [address] [place], [address], 11/07/2021 10:14:01 11/03/19 22 11/07/2021 PROST ATE CNB PC-ON LY # - 12 codes commen t Not Available [employer] [address] [place], [address], 11/07/2021 10:14:01 11/03/19 22 11/07/2021 PROST ATE CNB PC-ON LY # - 12 specimen source commen t Not Available [employer] [address] [place], [address], 11/07/2021 10:14:01 11/03/19 22 11/07/2021 PROST ATE CNB PC-ON LY # - 12 gross description commen t Not Available [employer] [address] [place], [address], 11/07/2021 10:14:01 11/03/19 22 11/07/2021 PROST ATE CNB PC-ON LY # - 12 diagnosis commen t Not Available [employer] [address] [place], [address], 11/07/2021 10:14:01 11/03/19 22 11/07/2021 PROST ATE CNB PC-ON LY # - 12 codes commen t Not Available [employer] [address] [place], [address], 11/07/2021 10:14:01 11/03/19 22 11/07/2021 PROST ATE CNB PC-ON LY # - 12 specimen source commen t Not Available [employer] [address] [place], [address], 11/07/2021 10:14:01 11/03/19 22 11/07/2021 PROST ATE CNB PC-ON LY # - 12 gross description commen t Not Available [employer] [address] [place], [address], 11/07/2021 10:14:01 11/03/19 22 11/07/2021 PROST ATE CNB PC-ON LY # - 12 diagnosis commen t Not Available [employer] [address] [place], [address], 11/07/2021 10:14:01 11/03/19 22 11/07/2021 PROST ATE CNB PC-ON LY # - 12 codes commen t Not Available [employer] [address] [place], [address], 11/07/2021 10:14:01 11/03/19 22 11/07/2021 PROST ATE CNB PC-ON LY # - 12 specimen source commen t Not Available [employer] [address] [place], [address], 11/07/2021 10:14:01 11/03/19 22 11/07/2021 PROST ATE CNB PC-ON LY # - 12 gross description commen t Not Available [employer] [address] [place], [address], 11/07/2021 10:14:01 11/03/19 22 11/07/2021 PROST ATE CNB PC-ON LY # - 12 diagnosis commen t Not Available [employer] [address] [place], [address], 11/07/2021 10:14:01 11/03/19 22 11/07/2021 PROST ATE CNB PC-ON LY # - 12 codes commen t Not Available [employer] [address] [place], [address], 11/07/2021 10:14:01 11/03/19 22 11/07/2021 PROST ATE CNB PC-ON LY # - 12 specimen source commen t Not Available [employer] [address] [place], [address], 11/07/2021 10:14:01 11/03/19 22 11/07/2021 PROST ATE CNB PC-ON LY # - 12 gross description commen t Not Available [employer] [address] [place], [address], 11/07/2021 10:14:01 11/03/19 22 11/07/2021 PROST ATE CNB PC-ON LY # - 12 diagnosis commen t Not Available [employer] [address] [place], [address], 11/07/2021 10:14:01 11/03/19 22 11/07/2021 PROST ATE CNB PC-ON LY # - 12 codes commen t Not Available [employer] [address] [place], [address], 11/07/2021 10:14:01 11/03/19 22 11/07/2021 PROST ATE CNB PC-ON LY # - 12 specimen source commen t Not Available [employer] [address] [place], [address], 11/07/2021 10:14:01 11/03/19 22 11/07/2021 PROST ATE CNB PC-ON LY # - 12 gross description commen t Not Available [employer] [address] [place], [address], 11/07/2021 10:14:01 11/03/19 22 11/07/2021 PROST ATE CNB PC-ON LY # - 12 diagnosis commen t Not Available [employer] [address] [place], [address], 11/07/2021 10:14:01 11/03/19 22 11/07/2021 PROST ATE CNB PC-ON LY # - 12 codes commen t Not Available [employer] [address] [place], [address], 11/07/2021 10:14:01 11/03/19 22 11/07/2021 PROST ATE CNB PC-ON LY # - 12 specimen source commen t Not Available [employer] [address] [place], [address], 11/07/2021 10:14:01 11/03/19 22 11/07/2021 PROST ATE CNB PC-ON LY # - 12 gross description commen t Not Available [employer] [address] [place], [address], 11/07/2021 10:14:01 11/03/19 22 11/07/2021 PROST ATE CNB PC-ON LY # - 12 diagnosis commen t Not Available [employer] [address] [place], [address], 11/07/2021 10:14:01 11/03/19 22 11/07/2021 PROST ATE CNB PC-ON LY # - 12 codes commen t Not Available [employer] [address] [place], [address], 11/07/2021 10:14:01 11/03/19 22 11/07/2021 PROST ATE CNB PC-ON LY # - 12 specimen source commen t Not Available [employer] [address] [place], [address], 11/07/2021 10:14:01 11/03/19 22 11/07/2021 PROST ATE CNB PC-ON LY # - 12 gross description commen t Not Available [employer] [address] [place], [address], 11/07/2021 10:14:01 11/03/19 22 11/07/2021 PROST ATE CNB PC-ON LY # - 12 diagnosis commen t Not Available [employer] [address] [place], [address], 11/07/2021 10:14:01 11/03/19 22 11/07/2021 PROST ATE CNB PC-ON LY # - 12 codes commen t Not Available [employer] [address] [place], [address], 11/07/2021 10:14:01 11/03/19 22 11/07/2021 PROST ATE CNB PC-ON LY # - 12 specimen source commen t Not Available [employer] [address] [place], [address], 11/07/2021 10:14:01 11/03/19 22 11/07/2021 PROST ATE CNB PC-ON LY # - 12 gross description commen t Not Available [employer] [address] [place], [address], 11/07/2021 10:14:01 11/03/19 22 11/07/2021 PROST ATE CNB PC-ON LY # - 12 diagnosis commen t Not Available [employer] [address] [place], [address], 11/07/2021 10:14:01 11/03/19 22 11/07/2021 PROST ATE CNB PC-ON LY # - 12 codes commen t Not Available [employer] [address] [place], [address], 11/07/2021 10:14:01 11/03/19 22 11/07/2021 PROST ATE CNB PC-ON LY # - 12 core mapping commen t Not Available [employer] [employer] [address] [place], [address], 11/07/2021 10:14:01 11/03/19 22 11/07/2021 PROST ATE CNB PC-ON LY # - 12 case comment commen t Not Available [employer] [address] [place], [address], 11/07/2021 10:14:01 11/03/19 22 11/07/2021 PROST ATE CNB PC-ON LY # - 12 pathologist commen t Not Available [employer] [address] [place], [address], 11/07/2021 10:14:01 11/03/19 22 11/07/2021 PROST ATE CNB PC-ON LY # - 12 TC stain table commen t Not Available [employer] [address] [place], [address], 11/07/2021 10:14:01 11/03/19 22 11/07/2021 PROST ATE CNB PC-ON LY # - 12 performing labs commen t Not Available [employer] [address] [place], [address], 11/07/2021 10:14:01 11/03/19 22 11/07/2021 PROST ATE CNB PC-ON LY # - 12 professional component performed commen t Not Available [employer] [facility], [place], [address], 11/07/2021 10:14:01 11/29/19 22 11/28/2021 UA DIP CS ADVAN TUS color -advantus yellow yellow Not Available [facility] [address] [place] [address] [address], [place], [address], 11/28/2021 13:57:58 11/29/19 22 11/28/2021 UA DIP CS ADVAN TUS appearance -advantus turbid clear abnormal Not Available [facility] [address] [place] [address] [address], [place], [address], 11/28/2021 13:57:58 11/29/19 22 11/28/2021 UA DIP CS ADVAN TUS glucose -advantus negati ve mg/dL negati ve Not Available [facility] [address] [place] [address] [address], [place], [address], 11/28/2021 13:57:58 11/29/19 22 11/28/2021 UA DIP CS ADVAN TUS bilirubin -advantus negati ve negati ve Not Available [facility] [address] [place] [address] 200, [place], [address], 11/28/2021 13:57:58 11/29/19 22 11/28/2021 UA DIP CS ADVAN TUS ketones -advantus negati ve mg/dL negati ve Not Available [facility] [address] [place] [address], [place], [address], 11/28/2021 13:57:58 11/29/19 22 11/28/2021 UA DIP CS ADVAN TUS sp. gravity -advantus <=1.00 5 1.010- 1.025 Not Available [facility] [address] [place] [address] [address], [place], [address], 11/28/2021 13:57:58 11/29/19 22 11/28/2021 UA DIP CS ADVAN TUS pH -advantus 5.0 5.0-8. 0 Not Available [facility] [address] [facility] [address], [place], [address], 11/28/2021 13:57:58 11/29/19 22 11/28/2021 UA DIP CS ADVAN TUS protein -advantus negati ve mg/dL negati ve Not Available [facility] [address] [place] [address], [place], [address], 11/28/2021 13:57:58 11/29/19 22 11/28/2021 UA DIP CS ADVAN TUS urobilinogen -advantus 0.2 normal Not Available [facility] [address] [place] [address], [place], [address], 11/28/2021 13:57:58 11/29/19 22 11/28/2021 UA DIP CS ADVAN TUS nitrites -advantus positi ve negati ve abnormal Not Available [facility] [address] [facility] [address], [place], [address], 11/28/2021 13:57:58 11/29/19 22 11/28/2021 UA DIP CS ADVAN TUS blood -advantus modera te negati ve abnormal Not Available [facility] [address] [facility] [address], [place], [address], 11/28/2021 13:57:58 11/29/19 22 11/28/2021 UA DIP CS ADVAN TUS leukocytes -advantus large negati ve abnormal Not Available [facility] [address] [place] [address], [place], [address], 11/28/2021 13:57:58 11/29/19 22 11/28/2021 UA DIP CS ADVAN TUS performed by toua T Not Available [facility] [address] [facility] [address], [place], [address], 11/28/2021 13:57:58 11/29/19 22 11/28/2021 UA DIP CS ADVAN TUS total urine volume (mL) 20 /mL Not Available [facility] [address] [place] [address], [place], [address], 11/28/2021 13:57:58 11/29/19 22 11/28/2021 UA MICRO SCOPI C U-WBC 50 - 100 [hpf] 0 - 2 abnormal Not Available [facility] [address] [place] [address], [place], [address], 11/28/2021 13:58:02 11/29/19 22 11/28/2021 UA MICRO SCOPI C U-RBC 0 - 2 [hpf] 0 - 2 Not Available [facility] [address] [facility] [address], [place], [address], 11/28/2021 13:58:02 11/29/19 22 11/28/2021 UA MICRO SCOPI C bacteria large [hpf] negati ve abnormal Not Available [facility] [address] [place] [address], [place], [address], 11/28/2021 13:58:02 11/29/19 22 11/28/2021 UA MICRO SCOPI C squamous epi small /lpf negati ve,sma ll Not Available [facility] [address] [place] [address], [place], [address], 11/28/2021 13:58:02 11/29/19 22 11/28/2021 URINE CULTU RE final report microb iology result s abnormal Not Available [facility] [address] [place] [address], [place], [address], 11/30/2021 12:44:23 Result Notes None recorded. Procedures Surgical History Date Name Laterality Status Provider Name and Address Organization Details Recorded Time 2 Fill and Pull/Voiding Trial/TOV completed ESTUARDO Cueva [address] [facility],[address], [place], [address], [facility] 01/23/2022 11:13:28 2 Urine Culture completed Marlin sheriff, [facility] 11/28/2021 13:31:33 2 Urinalysis completed Marlin Perea [facility], [facility] 11/28/2021 13:31:29 2 Prostate Biopsy Procedure completed Keagan Wallace MD [address] [facility],[address], [place], [address], [facility] 11/02/2021 12:52:14 2 Rocephin[facility]Ceftri axone [facility] 12:10:53 2 Blood Draw/BAR PORTER/PSA RESULTS completed Md Rocio [facility] 10/14/2021 12:12:37 2 Thompson Catheter Insertion completed Nat Gilliland [facility] 10/14/2021 12:39:05 2 Bladder Scan completed Nat Gilliland [facility] 10/14/2021 12:38:15 2 Urine Culture completed Md Rocio [facility] 09/15/2021 11:54:01 2 Urinalysis completed Nona Chan [facility] 09/15/2021 11:54:09 2 [facility] 14:17:17 1 Colonoscopy completed Margaret Sykes [facility] 09/09/2021 14:17:03 Imaging Results None recorded. Procedure [...] Updated DateTime 10/14/2021 180.34 cm Nat sheriff [facility] 10/14/2021 12:37:10 Date Recorded Body height Body mass index (BMI) Body weight Provider Name and Address Organization Details Last Updated DateTime 11/02/2021 180.34 cm 27.9 kg/m2 93512.47 g Joseluis sheriff [facility] 11/02/2021 12:34:23 Date Recorded Body height Body mass index (BMI) Body weight Provider Name and Address Organization Details Last Updated DateTime 01/23/2022 180.34 cm 27.9 kg/m2 11345.47 g Sherrie sheriff [facility] 01/23/2022 10:50:52 Date Recorded Body height Body mass index (BMI) Body weight Provider Name and Address Organization Details Last Updated DateTime 09/09/2021 180.34 cm 27.9 kg/m2 47596.47 g Margaret sheriff [facility] 09/09/2021 14:16:16 Social History Question Answer Notes LastModified by Organizat ion Details LastModified Time Tobacco Smoking Status Never Smoker SOHEILA Figueroa [facility] 09/09/2021 14:16:45 What Is Your Level Of Alcohol Consumption? None [email or web address] Information not available 11/02/2021 What Is Your Level Of Caffeine Consumption? Moderate [email or web address] Information not available 11/02/2021 What Was The Date Of Your Most Recent Tobacco Screening? 11/02/2021 [email or web address] Information not available 11/02/2021 Do You Use Any Illicit Or Recreational Drugs? No [email or web address] Information not available 11/02/2021 Has Tobacco Cessation Counseling Been Provided? Yes [email or web address] Information not available 11/02/2021 On What Date Was Tobacco Cessation Counseling Provided? 11/02/2021 [email or web address] Information not available 11/02/2021 Do You Or Have You Ever Used Any Other Forms Of Tobacco Or Nicotine? No [email or web address] Information not available 11/02/2021 Sex: Male Functional Status None recorded. Mental Status None recorded. Family History Nothing Reported. Medical History No medical history recorded. Immunizations Vaccine Type Date Status Provider Name and Address Organization Details Recorded Time Td (adult), 5 Lf tetanus toxoid, preservative free, adsorbed 08/23/2020 completed SOHEILA Figueroa [facility] 09/09/2021 14:16:22 COVID-19, mRNA, LNP-S, PF, 100 mcg/0.5mL dose or 50 mcg/0.25mL dose 03/18/2021 completed SOHEILA Figueroa [facility] 09/09/2021 14:16:22 Past Encounters Encounter ID Performer Location Encounter Start Date Encounter Closed Date Diagnosis/Indication [id number] Keagan Wallace MD [facility] [address] [facility],[address] [address] 09/09/2021 13:50:11 09/09/2021 14:51:05 Prostatitis Incomplete emptying of bladder Prostate nodule [id number] Va Rocio [facility] ry [address] [facility],[address] [address] 09/15/2021 11:49:42 09/15/2021 11:56:[id number] [facility] ry [address] [place] [phone] 10/14/2021 11:27:59 10/14/2021 15:28:24 Urinary tract infectious disease Retention of urine [id number] Nona Chan [facility] ry [address] [place] [address],[address] [address] 10/14/2021 12:03:41 10/14/2021 12:13:20 Prostate specific antigen above reference range [id number] Keagan Wallace MD [facility] ry [address] [place] [phone] 11/02/2021 12:06:05 11/02/2021 13:33:50 Prostate nodule Recurrent urinary tract infection Prostatitis [id number] Yolanda Timmons [address] [address] 11/02/2021 12:05:27 11/02/2021 12:18:17 Prostate specific antigen above reference range [id number] Marlin Perea [address] [address] 11/28/2021 13:19:15 11/28/2021 14:05:35 Retention of urine [id number] ESTUARDO Cueva [address] [address] 01/23/2022 10:48:29 01/23/2022 11:45:38 Lower urinary tract [...] Name 01/23/2022 1 [place] [id number] Marlon Benton [id number] Marlon Benton 11/28/2021 1 [place] [id number] Marlon Benton [id number] Marlon Benton 11/02/2021 1 [place] [id number] Marlon Benton [id number] Marlon Rodriguezugh 11/02/2021 1 [place] [id number] Marlon Rodriguezugh [id number] Marlon Rodriguezugh 10/14/2021 1 [place] [id number] Marlon Michelonough [id number] Marlon Rodriguezugh 10/14/2021 1 [place] [id number] Marlon Rodriguezugh [id number] Marlon Rodriguezugh 09/15/2021 1 [place] [id number] Marlon Rodriguezugh [id number] Marlon Rodriguezugh 09/09/2021 1 [place] [id number] Marlon Benton [id number] Marlon Benton Notes Date Note Type Note [...] denies gross hematuria. Keagan Wallace MD [address] [facility],[address], [place], [address], [facility] 09/09/2021 14:45:27 11/02/2021 text/html HPI Notes: [...] today for prostate biopsy. Keagan Wallace MD [address] [place] [address],[address], [address], [facility] 11/02/2021 12:52:18 01/23/2022 text/html HPI Notes: This is a 71 year old male with a history of lower urinary tract symptoms, recurrent episodes of prostatitis, and a prostate nodule who is now s/p TURP with Dr. Wallace on 01/20/2022 Presents for voiding trial today ESTUARDO Cueva [address] [place] [address],[address], [place], [address], [facility] 01/23/2022 11:15:08
[2023-04-13 10:52] LABS: Creatinine* 0.7 mg/dL (0.5-1.5); Estimated Glomerular Filt Rate 98 ml/min
--- NOTE | 2023-04-13 11:00 | CRLHL7_ITS ---
For Patients: As a result of the Century Cures Act, medical imaging exams and procedure reports are released immediately into your electronic medical record. You may view this report before your referring provider. If you have questions, please contact your health care provider. INDICATION: UTI. Hematuria. TECHNIQUE: Volumetric helical scanning of the abdomen and pelvis was performed initially without contrast material. 100 cc of Isovue 370 contrast material were then injected IV in two 50 cc boluses 5 minutes apart. Ninety seconds following the second bolus, scanning of the abdomen and pelvis was repeated. Coronal and sagittal reconstructions were obtained. COMPARISON: None. FINDINGS: A nonobstructing 11 x 10 x 8 mm stone is present in the distal right ureter, within 1 cm of the UVJ. Just superior to this stone in the right ureter is an additional 4 mm stone. No other ureteral stone is demonstrated. A 4 mm stone is present in the superior left renal collecting system. A collection of 4 small stones in the large posterolateral left diverticulum is demonstrated. The largest of these stones measures perhaps 5 mm. Benign-appearing renal parenchymal cysts are present bilaterally as well as a number of left renal parapelvic cysts. The renal parenchyma is otherwise unremarkable. The apart from the stones measured above, excretory images demonstrate no filling defect in either collecting system, either ureter or in the partially filled bladder. A 6 cm diverticulum arises from the left posterolateral bladder. The prostate is normal. The liver is normal in size, shape and attenuation. No bile duct dilation is evident. The spleen is within normal limits. The adrenal glands are enlarged but maintain a grossly adreniform shape. The pancreas is within normal limits. No lymphadenopathy is evident. No free fluid is demonstrated. The bowel is unremarkable except for colonic diverticulosis. The lung bases are clear, and heart size is normal. IMPRESSION: 1. Nonobstructing 11 x 10 x 8 mm distal right ureteral stone within 1 cm of the UVJ and adjacent 4 mm stone superiorly. 2. 4 mm left renal collecting system stone and collection of 4 small stones in the large left bladder diverticulum. 3. Benign-appearing renal cysts. Please note that all CT scans at this facility use dose modulation, iterative reconstruction, and/or weight-based dosing when appropriate to reduce radiation dose to as low as reasonably achievable. Dictated by Brett Hopkins MD @ 04/16/2023 9:41:15 AM (Electronically Signed)
== END 2023-04-13 10:16 | disposition home or self-care (01) ==
PROVIDERS: PCP Family Medicine; Visit Provider Family Medicine
DX: N39.0 Urinary tract infection, site not specified (principal); R31.9 Hematuria, unspecified; N20.1 Calculus of ureter; N21.0 Calculus in bladder; N20.0 Calculus of kidney
CPT/HCPCS: 36415; 74178; 82565; Q9967

== ENCOUNTER 2023-05-24 12:18 | Outpatient (CLI) | payer MEDICARE, SELFPAY | END 2023-05-24 12:19 | disposition home or self-care (01) | PROVIDERS: PCP Family Medicine; Referring Provider Family Medicine; Visit Provider Family Medicine | DX: N39.0 Urinary tract infection, site not specified (principal) | CPT/HCPCS: 87086 ==

== ENCOUNTER 2023-06-19 07:58 | Outpatient (CLI) | payer MEDICARE, SELFPAY | END 2023-06-19 07:59 | disposition home or self-care (01) | LOC: NFLDREF 06-20 06:34 | PROVIDERS: PCP Family Medicine; Referring Provider Family Medicine; Visit Provider Family Medicine | DX: N39.0 Urinary tract infection, site not specified (principal); N20.0 Calculus of kidney | CPT/HCPCS: 87086 ==

== ENCOUNTER 2023-07-24 12:31 | Outpatient (CLI) | payer MEDICARE, SELFPAY ==
--- OUTSIDE RECORDS SUMMARY | 2023-07-25 08:16 | XMS_ITS | Encounter Summary ---
Author Name Unknown Organization [place] Address [facility] [place] [address] Care Team Providers Care Assistant Shift Supervisor Name Role Phone No Ref-Primary, Physician Primary Care Provider Lino Radford DO Unavailable [phone] Encounter Details Date Type Department Care Team (Latest Contact Info) Description 07/20/2023 Travel Social History Tobacco Use Types Packs/Day [...] as of this encounter Plan of Treatment Upcoming Encounters Date Type Department Care Team (Latest Contact Info) Description 07/27/2023 7:40 AM CDT Hospital Encounter [facility] [address] [place] [phone] Fabrizio Jones MD [address] [address] 07/27/2023 7:40 AM CDT - 07/27/2023 10:[address] [facility] [address] [place] [address] Fabrizoi Jones MD [address] [place] [address] Cystoscopy, right ureteroscopy with laser lithotripsy, right ureteroscopy with stone basketing, right retrograde pyelogram, right ureteral stent placement 08/02/2023 10:30 AM CDT Office Visit [facility] [place] [address] [facility] [address] [place] [address] Fabrizio Jones MD [address] [place] [place] [address] Scheduled Procedures Name Priority Associated Diagnoses Date/Ti me CYSTOURETEROSCOPY, WITH RETROGRADE PYELOGRAM, HOLMIUM LASER LITHOTRIPSY OF URETERAL CALCULUS, AND STENT INSERTION Right ureteral stone Bladder stones 07/27/2023 7:40 AM CDT LITHOTRIPSY, CALCULUS, BLADDER, USING HOLMIUM LASER Right ureteral stone Bladder stones 07/27/2023 7:40 AM CDT documented as of this encounter Goals Goal Patient Goal Type Associated Problems Recent Progress Patient-Stated? Author MYC ECC SURG ENROLL Care Plan MyC ECC SURG ENROLL No Cara Kimble documented as of this encounter Visit Diagnoses Not on filedocumented in this encounter Additional Health Concerns Active Problems Noted Date Diagnosed Date MyC ECC SURG ENROLL 07/06/2023 documented as of this encounter Care Teams Assistant Shift Supervisor Relationship Specialty Start Date End Date No Ref-Primary, Physician PCP - General 07/15/20 [place] [address] [place] [address] Assigned PCP 08/26/20 documented as of this encounter
--- OUTSIDE RECORDS SUMMARY | 2023-07-25 08:16 | XMS_ITS | Encounter Summary ---
Author Name Unknown Organization [place] Address [address] [place] [id number] Care Team Providers Care Coil Strapper Name Role Phone No Ref-Primary, Physician Primary Care Provider Lino Radford DO Unavailable [phone] Reason for Visit * Reason Comments Kidney Stone Related Encounter Details Date Type Department Care Team (Late st Contact Info) Description 07/06/2023 11:00 AM CDT Office Visit [facility] [address] [place] [address] Fabrizio Jones MD [address] [place], [place] [id number] Right ureteral stone (Primary Dx); Bladder stones; Recurrent UTI; Cloudy urine; Chronic atrial fibrillation (H); Gross hematuria; Kidney stone on left side; Bladder diverticulum Social History Tobacco Use Types Packs/Day Years [...] Sign Reading Time Taken Comments Blood Pressure 126/86 07/06/2023 10:39 AM CDT Pulse 91 07/06/2023 10:39 AM CDT Temperature - - Respiratory Rate - - Oxygen Saturation - - Inhaled Oxygen Concentration - - Weight 93 kg (205 lb) 07/06/2023 10:39 AM CDT Height 180.3 cm (5' 11) 07/06/2023 10:39 AM CDT Body Mass Index 28.59 07/06/2023 10:39 AM CDT documented in this encounter Patient Instructions * Patient Instructions* Fabrizio Jones MD - 07/06/2023 11:00 AM CDT Send urine for culture and treat if indicated Start tamsulosin daily Schedule cystoscopy, laser cystolitholapaxy, right ureteroscopy with laser lithotripsy, right ureteroscopy with stone basketing, right retrograde pyelogram, right ureteral stent placement * Attachments The following attachments cannot be sent through Care Everywhere. * Ureteroscopy: Pre-op (Brazilian) * Tamsulosin Oral Capsule (TAMSULOSIN CAPSULE - ORAL) (Brazilian) documented in this encounter Progress Notes * Fabrizio Jones MD - 07/06/2023 11:00 AM CDT Images from the original note were not included. [facility] Main Office: [address] [place] [address] [place] [id number] CHIEF COMPLAINT: Recurrent UTI, nephrolithiasis Note that patient scheduled to see Justine Laurent 12/23/2020 but unable to contact, so this is his first clinic visit with our group and this is a new patient visit HISTORY: 73 yo M w/ h/o BPH with urinary retention s/p TURP 01/20/2022 (Dr. Keagan Wallace @ [place]), prostatenodule s/p prostate biopsy 11/02/2021, recurrent UTI, gross hematuria, nephrolithiasis Reviewed outside notes from [facility], note from 11/02/2021 pasted below 71 year old male with a history of lower urinary tract symptoms, recurrent episodes of prostatitis, and a prostate nodule who is here for prostate biopsy. He has struggled with worsening obstructiveand irritative voiding symptoms for more than 10 [...] weeks. On examination 09/09/2021 he was again feltto have a grossly abnormal exam worrisome for malignancy. His prostate specific antigen post-treatment of his prostatitis episode was 1.43 ng/mL (10/14/2021). He is here today for prostate biopsy He says he had a bad experience with the TURP and the biopsy but doesn't want to get into it. He declines any awake cystoscopy or catheter. Per patient the biopsy was benign Currently his urinary symptoms are stable, AUA symptom score 1-5-2-1-3-0-4 = 17 qol mixed. He is used to his current condition He is now referred to urology for concern for ureteral and kidney stones which were found on CT urogram during workup for gross hematuria. Note that he was previously on anticoagulation (eliquis) buthas stopped due to the gross hematuria Cannabis smoker but not tobacco PAST MEDICAL HISTORY: Past Medical History: Diagnosis Date A-fib (H) Hematuria HTN (hypertension) Urinary tract infection PAST SURGICAL HISTORY: Past Surgical History: Procedure Laterality Date COLONOSCOPY FAMILY HISTORY: Family History Problem Relation Age of Onset No Known Problems Mother No Known Problems Father Colon Cancer No family hx of SOCIAL HISTORY: Social History Tobacco Use Smoking status: Former Packs/day: 2.00 Years: 20.00 Additional pack years: 0.00 Total pack years: 40.00 Types: Cigarettes Start date: 04/02/1971 Quit date: 04/02/1991 Years since quittin.2 Smokeless tobacco: Never Substance Use Topics Alcohol use: Yes Comment: occ No Known Allergies Current Outpatient Medications: acetaminophen (TYLENOL) 500 MG tablet, Take 500-1,000 mg by mouth every 6 hours as needed for mild pain, Disp: , Rfl: apixaban ANTICOAGULANT (ELIQUIS ANTICOAGULANT) 5 MG tablet, Take 1 tablet (5 mg) by mouth 2 times daily, Disp: 60 tablet, Rfl: 3 carvedilol (COREG) 3.125 MG tablet, Take 1 tablet (3.125 mg) by mouth 2 times daily (with meals), Disp: 60 tablet, Rfl: 3 ondansetron (ZOFRAN) 4 MG tablet, Take 1 tablet (4 mg) by mouth every 8 hours as needed for nausea,Disp: 20 tablet, Rfl: 3 Review Of Systems: Skin: No rash, pruritis, or skin pigmentation Eyes: No changes in vision Ears/Nose/Throat: No changes in hearing, no nosebleeds Respiratory: No shortness of breath, dyspnea on exertion, cough, or hemoptysis Cardiovascular: No chest pain or palpitations Gastrointestinal: No diarrhea or constipation. No abdominal pain. No hematochezia Genitourinary: see HPI Musculoskeletal: No pain or swelling of joints, normal range of motion Neurologic: No weakness or tremors Psychiatric: No recent changes in memory or mood Hematologic/Lymphatic/Immunologic: No easy bruising or enlarged lymph nodes Endocrine: No weight gain or loss PHYSICAL EXAM: BP 126/86 Pulse 91 Ht 1.803 m (5' 11) Wt 93 kg (205 lb) BMI 28.59 kg/m?? General appearance: In NAD, conversant HEENT: Normocephalic and atraumatic, anicteric sclera Cardiovascular: Not examined Respiratory: normal, non-labored breathing Gastrointestinal: negative, Abdomen soft, non-tender, and non-distended. Musculoskeletal: Not Examined Peripheral Vascular/extremity: No peripheral edema Skin: Normal temperature, turgor, and texture. No rash Psychiatric: Appropriate affect, alert and oriented to person, place, and time : deferred Cystoscopy: Not done UA RESULTS: Recent Labs Lab Test 11/04/20 1556 08/09/20 1054 COLOR [place]* Yellow APPEARANCE Cloudy* Clear URINEGLC Negative Negative URINEBILI Negative Moderate* URINEKETONE Negative >=80* SG 1.019 >1.030 UBLD Large* Large* URINEPH 5.5 5.5 PROTEIN 70* >=300* UROBILINOGEN -- 1.0 NITRITE Negative Negative LEUKEST Large* Large* RBCU >182* 2-5* WBCU >182* >100* Component Latest Ref Rng 07/06/2023 10:35 AM Color Urine Colorless, Straw, Light Yellow, Yellow Yellow Appearance Urine Clear Cloudy ! Glucose Urine Negative mg/dL Negative Bilirubin Urine Negative Negative Ketones Urine Negative mg/dL 15 ! Specific [place] Urine 1.003 - 1.035 1.025 Blood Urine Negative Moderate ! pH Urine 5.0 - 7.0 6.0 Protein Albumin Urine Negative mg/dL 100 ! Urobilinogen Urine 0.2, 1.0 E.U./dL 0.2 Nitrite Urine Negative Negative Leukocyte Esterase Urine Negative Large ! Legend: ! Abnormal Bladder Scan: PVR 248 ml Other Labs: Imaging Studies: Outside CT 04/13/2023 reviewed and interpreted personally Low density left renal stone, about 3-4 mm, 8 cm stsd Large right distal ureteral stones up to 12 mm Small dependent bladder stones in a large bladder diverticulum ~1300 hu, STSD 14 cm from anterior CLINICAL IMPRESSION: 73 yo M w/ h/o BPH with urinary retention s/p TURP 01/20/2022 (Dr. Keagan Wallace @ [place]), prostatenodule s/p prostate biopsy 11/02/2021, recurrent UTI, gross hematuria, nephrolithiasis Re: BPH with retention, he is not emptying bladder to completion (248 ml pvr) and has a large bladder diverticulum Re: gross hematuria, has not had a cystoscopy recently (since the TURP). Recommend cystoscopy to rule out a bladder tumor Large right ureteral stone is asymptomatic; has a tiny low density left kidney stone which should be observed. Recommend treatment of the ureteral stone as over long period of time it will lead to obstruction of the kidney, atrophy of kidney, chronic kidney disease and permanent renal failure Has several small bladder stones dependent in a large bladder diverticulum Cloudy urine with large leukest and blood today, send for culture. He does not feel like he has an infection at this time Note that patient is adamant he never wants another Thompson catheter in his life I recommend treatment of the right ureteral stone with cystoscopy, right ureteroscopy with laser lithotripsy, right ureteroscopy with stone basketing, right retrograde pyelogram, right ureteral stentplacement, with concomitant laser cystolitholapaxy for the bladder stones. He is very interested in extracorporeal shockwave lithotripsy. In my opinion, shockwave is not as effective for a large distal ureteral stone as ureteroscopy as the shocks may break up the stone but the stone could remain lodged in the ureter without passage, vs. Passing into the bladder and then getting stuck in the dependent portion of the diverticulum. He is very perseverative about these options I discussed ureteroscopic management with laser lithotripsy and stone basketing with stent placement. Risks including need for secondary procedure, infection, ureteral injury, incomplete stone clearance, stent pain and irritation were discussed I would not plan on a catheter unless he has postoperative urinary retention (which is a significant risk given his history). Will plan to start alpha mulugeta preop to avoid this issue He will consider whether he wants stent on string, or if he wants no string and either come back tothe office for awake cysto for removal or return for cysto stent removal under anesthesia PLAN: Send urine for culture and treat if indicated Start tamsulosin daily Schedule cystoscopy, laser cystolitholapaxy, right ureteroscopy with laser lithotripsy, right ureteroscopy with stone basketing, right retrograde pyelogram, right ureteral stent placement Fabrizio Jones MD [facility] [phone] clinic phone Reviewed 3 external notes documented in this encounter Nursing Notes * Jessica Pop CMA - 07/06/2023 11:00 AM CDT Chief Complaint Patient presents with Kidney Stone Related Pt states he does not have UTI symptoms today PVR: 248 mL Jessica Pop CMA documented in this encounter Plan of Treatment Upcoming Encounters Date Type Department Care Team (Latest Contact Info) Description 07/27/2023 7:40 AM CDT Hospital Encounter [facility] [address] [place] [phone] Fabrizio Jones MD [address] [address] 07/27/2023 7:40 AM CDT - 07/27/2023 10:20 AM CDT Surgery [facility] [address] [place] [phone] Fabrizio Jones MD [address] [address] Cystoscopy, right ureteroscopy with laser lithotripsy, right ureteroscopy with stone basketing, right retrograde pyelogram, right ureteral stent placement 08/02/2023 10:30 AM CDT Office Visit [facility] [place] [address] [facility] [address] [place] [phone] Fabrizio Jones MD [address] [address] Scheduled Procedures Name Priority Associated Diagnoses Date/Ti [...] ENROLL Care Plan MyC ECC SURG ENROLL Cara Rivas documented as of this encounter Procedures Procedure Name Priority Date/Time Associated Diagnosis Comments URINE CULTURE Routine 07/06/2023 10:45 AM CDT Cloudy urine URINALYSIS MACROSCOPIC Routine 07/06/2023 10:35 AM CDT Recurrent UTI CO MEASURE POST-VOID RESIDUAL URINE/BLADDER CAPACITY, US NON-IMAGING Routine 07/06/2023 Recurrent UTI documented in this encounter Results * Urine Culture Aerobic Bacterial [[id number]] (07/06/2023 10:45 AM CDT) Culture <10,000 CFU/mL Mixture of Urogenital [place] 07/07/2023 2:10 PM CDT [facility] Urine MID-STREAM URINE SPECIMEN / Unknown Non-blood Collection / Unknown 07/06/2023 10:45 AM CDT 07/06/2023 10:45 AM CDT Fabrizio Jones MD LAB - MICRO GENERAL ORDERABLES [facility] Inf. Diseases Diag. Lab [address] [facility], [address] [place] [id number] * (ABNORMAL) UA without Microscopic [[id number]] (07/06/2023 10:35 AM CDT) Color Urine Yellow Colorless, Straw, Light Yellow, Yellow 07/06/2023 10:43 AM CDT [facility] Appearance Urine Cloudy(A) Clear 07/06/19 24 10:43 AM CDT [facility] Glucose Urine Negative Negative mg/dL 07/06/2023 10:43 AM CDT [facility] Bilirubin Urine Negative Negative 10:43 AM CDT [facility] Ketones Urine 15(A) Negative mg/dL 07/06/2023 10:43 AM CDT [facility] Specific [place] Urine 1.025 1.003 - 1.035 07/06/2023 10:43 AM CDT [facility] Blood Urine Moderate(A) Negative 07/06/2023 10:43 AM CDT [facility] pH Urine 6.0 5.0 - 7.0 07/06/2023 10:43 AM CDT [facility] Protein Albumin Urine 100(A) Negative mg/dL 07/06/2023 10:43 AM CDT [facility] Urobilinogen Urine 0.2 0.2, 1.0 E.U./dL 07/06/2023 10:43 AM CDT [facility] Nitrite Urine Negative Negative 07/06/2023 10:43 AM CDT [facility] Leukocyte Esterase Urine Large(A) Negative 07/06/2023 10:43 AM CDT [facility] Urine MID-STREAM URINE SPECIMEN / Unknown Non-blood Collection / Unknown 07/06/2023 10:35 AM CDT 07/06/2023 10:35 AM CDT Fabrizio Jones MD LAB - URINE ORDERABL ES [facility] [address] [place] [id number] [phone] * MEASURE POST-VOID RESIDUAL URINE/BLADDER CAPACITY, US NON-IMAGING (350[address]) (07/06/2023) Residual Volume (RV) (External) 248 Fabrizio Jones MD PROCEDURES documented in this encounter Visit Diagnoses Diagnosis Right ureteral stone- Primary Calculus of ureter Bladder stones Other calculus in bladder Recurrent UTI Urinary tract infection, site not specified Cloudy urine Other nonspecific finding on examination of urine Chronic atrial fibrillation (H) Atrial fibrillation Gross hematuria Kidney stone on left side Calculus of kidney Bladder diverticulum Diverticulum of bladder Right ureteral stone Calculus of ureter Bladder stones Other calculus in bladder documented in this encounter Additional Health Concerns Active Problems Noted Date Diagnosed Date MyC ECC SURG ENROLL 07/06/2023 documented as of this encounter Care Teams Coil Strapper Relationship Specialty Start Date End Date No Ref-Primary, Physician PCP - General 07/15/20 [place] [address] [place] [address] Assigned PCP 08/26/20 documented as of this encounter
--- OUTSIDE RECORDS SUMMARY | 2023-07-25 08:16 | XMS_ITS | Clinical Summary ---
Author Name Unknown Organization [email or web address] Address [place], [place] [address] Care Team Providers Care Operator Specialist Communications Name Role Phone Yelena Multani Primary Care Provide r Allergies No known active allergies Medications Medication Sig Dispensed Refills Start Date End Date Status oxyCODONE-acetamin ophen (PERCOCET) 5-325 mg per tabletIndications: Benign prostatic hyperplasia with urinary obstruction Take 1 Tablet by mouth every 6 hours if needed for Pain. Max acetaminophen dose: 4000mg in 24 hrs. 15 Tablet 01/21/2022 Active oxyCODONE (ROXICODONE) 5 mg immediate release tabletIndications: Benign prostatic hyperplasia with urinary obstruction Take 1-2 Tablets (5-10 mg) by mouth every 4 hours if needed for Pain (For severe pain.). 10 Tablet 01/21/2022 Active Active Problems Problem Noted Date [...] for age 50+ (1 of 2) 04/22/19 01 Pneumococcal series for age 65+ (1 of 1 - PCV) 016 COVID-19 vaccine series (2 - 2022- season) 3 03/18/2021 Influenza for age 65+ 12/02/2023 Advance Directives * Full Code (Latest Code Status on File) Date Activated Date Inactivated Comments 01/20/2022 9:01 AM 01/21/2022 2:38 PM Should be discussed pre operatively with anesthesia or surgeon Question Answer Comments Code Status Discussion: Not Discussed Care Teams Operator Specialist Communications Relationship Specialty Start Date End Date Yelena Multani DO [address] [place] [address] PCP - General Family Practice 01/02/22
--- OUTSIDE RECORDS SUMMARY | 2023-07-25 08:16 | XMS_ITS | Referral Summary ---
Author Name Unknown Organization [facility] Address [address] [place] [address] Care Team Providers Care Home Health Lvn Name Role Phone No Ref-Primary, Physician Primary Care Provider Lino Radford DO Unavailable [phone] Encounters Date Type Department Care Team Description 07/20/2023 Travel 07/06/2023 Travel 07/06/2023 11:00 AM CDT Office Visit [facility] [address] [place] [address] Fabrizio Jones MD Right ureteral stone (Primary Dx); Bladder stones; Recurrent UTI; Cloudy urine; Chronic atrial fibrillation (H); Gross hematuria; Kidney stone on left side; Bladder diverticulum 06/25/2023 Telephone [facility] [address] [place] [address] Elizabeth Mckeon APRN NURSE'S COMPANION Referral (To schedule Urology appt per referral from [facility] for recurring UTI & kidney stones) from Last 3 Months Allergies No known active allergies Medications Medication Sig Dispensed Refills Start Date End Date Status metoprolol succinate ER (TOPROL XL) 25 MG 24 hr tablet Take 1 tablet by mouth daily Active tamsulosin (FLOMAX) 0.4 MG capsuleIndications :Right ureteral stone Take 1 capsule (0.4 mg) by mouth every evening 30 capsule 1 07/06/2023 Active ciprofloxacin (CIPRO) 500 MG tablet Take 1 tablet by mouth 2 times daily Active aspirin 81 MG EC tablet Take 1 tablet by mouth daily Active ondansetron (ZOFRAN) 4 MG tabletIndications: Nausea Take 1 tablet (4 mg) by mouth every 8 hours as needed for nausea 20 tablet 3 07/19/2020 4 Discontinue d(Med Rec(No AVS / No eCancel)) acetaminophen (TYLENOL) 500 MG tablet Take 500-1,000 mg by mouth every 6 hours as needed for mild pain 4 Discontinue d(Med Rec(No AVS / No eCancel)) apixaban ANTICOAGULANT (ELIQUIS ANTICOAGULANT) 5 MG tabletIndications: Chronic atrial fibrillation (H) Take 1 tablet (5 mg) by mouth 2 times daily 60 tablet 3 10/27/2020 4 Discontinue d(Med Rec(No AVS / No eCancel)) carvedilol (COREG) 3.125 MG tabletIndications: Chronic atrial fibrillation (H) Take 1 tablet (3.125 mg) by mouth 2 times daily (with meals) 60 tablet 3 10/27/2020 4 Discontinue d(Med Rec(No AVS / No eCancel)) sulfamethoxazole-t rimethoprim (BACTRIM DS) 800-160 MG tablet Take 1 tablet by mouth 2 times daily 4 Discontinue d(Med Rec(No AVS / No eCancel)) oxyCODONE (ROXICODONE) 5 MG tablet 01/21/2022 4 Discontinue d(Med Rec(No AVS / No eCancel)) nitroFURantoin macrocrystal-monoh ydrate (MACROBID) 100 MG capsule TAKE 1 CAP ORALLY EVERY DAY FOR 90 DAYS FOR UTI PROPHYLAXIS 05/24/2023 4 Discontinue d(Med Rec(No AVS / No eCancel)) Active Problems Problem Noted Date Diagnosed Date Diverticulosis of large intestine without hemorr remberto 07/19/2020 Bladder diverticulitis 07/19/2020 Morbid obesity 07/19/2020 History of colonic polyps 07/19/2020 Rectal bleeding 07/19/2020 Urinary tract infection Immunizations Name Administration Dates Next Due COVID-19 Monovalent 18+ (Moderna) 03/18/2021 TD,PF 7+ (Teniva) 08/23/2020 Social History Tobacco Use Types Packs/Day Years Used Date Smoking Tobacco: Former Cigarettes 2 20 0 04/02/1971 - 04/02/1991 Smokeless Tobacco: Never Tobacco Cessation:Counseling Given: Not Answered Alcohol Use Standard Drinks/Week Comments Yes 0 [...] Pulse 91 07/06/2023 10:39 AM CDT Temperature 36.9 ??C (98.4 ??F) 11/04/2020 3:29 PM CD T Respiratory Rate 16 11/04/2020 3:29 PM CDT Oxygen Saturation 96% 11/04/2020 4:30 PM CDT Inhaled Oxygen Concentration - - Weight 93 kg (205 lb) 07/06/2023 10:39 AM CDT Height 180.3 cm (5' 11) 07/06/2023 10:39 AM CDT Body Mass Index 28.59 07/06/2023 10:39 AM CDT Plan of Treatment Upcoming Encounters Date Type Department Care Team (Latest Contact Info) Description 07/27/2023 7:40 AM CDT Hospital Encounter [facility] [address] [place] [address] Fabrizio Jones MD [address] [address] 07/27/2023 7:40 AM CDT - 07/27/2023 10:20 AM CDT Surgery [facility] [address] [phone] Fabrizio Jones MD [address] [address] Cystoscopy, right ureteroscopy with laser lithotripsy, right ureteroscopy with stone basketing, right retrograde pyelogram, right ureteral stent placement 08/02/2023 10:30 AM CDT Office Visit [facility] [address] [place] [address] Fabrizio Jones MD [address] [address] Scheduled Procedures Name Priority Associated Diagnoses Date/Ti me CYSTOURETEROSCOPY, WITH RETROGRADE PYELOGRAM, HOLMIUM LASER LITHOTRIPSY OF URETERAL CALCULUS, AND STENT INSERTION Right ureteral stone Bladder stones 07/27/2023 7:40 AM CDT LITHOTRIPSY, CALCULUS, BLADDER, USING HOLMIUM LASER Right ureteral stone Bladder stones 07/27/2023 7:40 AM CDT Goals Goal Patient Goal Type Associated Problems Recent Progress Patient-Stated? Author MYC ECC SURG ENROLL Care Plan MyC ECC SURG ENROLL No Cara Kimble Procedures Procedure Name Priority Date/Time Associated Diagnosis Comments URINE CULTURE Routine 07/06/2023 10:45 AM CDT Cloudy urine URINALYSIS MACROSCOPIC Routine 10:35 AM CDT Recurrent UTI [place] MEASURE POST-VOID RESIDUAL URINE/BLADDER CAPACITY, US NON-IMAGING Routine 07/06/2023 Recurrent UTI COLONOSCOPY Routine 08/18/2020 1:07 PM CDT COMPREHENSIVE METABOLIC PANEL Routine 08/09/2020 12:20 PM CDT Fatigue, unspecified type CT ABDOMEN PELVIS W CONTRAST STAT 07/15/2020 5:24 AM CDT OCCULT BLOOD STOOL STAT 07/15/2020 3: 58 AM CDT from Last 3 Months or Most Recently Relevant to Health Maintenance Results * Urine Culture Aerobic Bacterial [[id number]] (07/06/2023 10:45 AM CDT) Culture <10,000 CFU/mL Mixture of Urogenital [place] 07/07/2023 2:10 PM CDT [facility] Urine MID-STREAM URINE SPECIMEN / Unknown Non-blood Collection / Unknown 07/06/2023 10:45 AM CDT 07/06/2023 10:45 AM CDT Fabrizio Jones MD LAB - MICRO GENERAL ORDERABLES [facility] Inf. Diseases Diag. Lab [address] [facility], Room [address] [place], [place] [id number] * (ABNORMAL) UA without Microscopic [[id number]] (07/06/2023 10:35 AM CDT) Color Urine Yellow Colorless, Straw, Light Yellow, Yellow 07/06/2023 10:43 AM CDT [facility] Appearance Urine Cloudy(A) Clear 07/06/19 10:43 AM CDT [facility] Glucose Urine Negative Negative mg/dL 07/06/2023 10:43 AM CDT [facility] Bilirubin Urine Negative Negative 10:43 AM CDT [facility] Ketones Urine 15(A) Negative mg/dL 07/06/2023 10:43 AM CDT [facility] Specific [place] Urine 1.025 1.003 - 1.035 07/06/2023 10:43 [...] LAB - URINE ORDERABL ES [facility] [address] [facility] [place] [address], [facility] [phone] * MEASURE POST-VOID RESIDUAL URINE/BLADDER CAPACITY, US NON-IMAGING (09034) (07/06/2023) Residual Volume (RV) (External) 248 Fabrizio Jones MD PROCEDURES * COLONOSCOPY (08/18/2020 1:07 PM CDT) COLONOSCOPY [facility] Patient Name: Marlon Benton ?Procedure Date: 08/18/2020 1:07 PM ? Date of : 1950 ?Admit Type: Outpatient Age: 70 ? Gender: Male Attending MD: Francisco Peguero MD ?? Total Sedation Time: 17_minutes continuous bedside 1:1 Instrument Name: 222 - Adult Colonoscope Procedure: ?Colonoscopy Indications: ?High risk colon cancer surveillance: Personal ?history of colonic polyps Providers: ?Francisco Peguero MD (Doctor) Referring MD: ? Medicines: ?Midazolam 2 mg [...] physician ?in the pre-procedure area. Mental Status ?Examination: alert and oriented. Airway ?Examination: normal oropharyngeal [...] continuously. The ?Olympus Adult Colonoscope, Model # CF-VF404S, ?[place] # 222, SN # [id number] was introduced through ?the anus and advanced to the cecum, identified by ?appendiceal orifice and ileocecal valve. The ?colonoscopy was performed without difficulty. The ?patient tolerated the procedure well. The quality ?of the bowel preparation was good. ? Findings: ? The perianal and digital rectal examinations were normal. ? Four multi-lobulated polyps were found in the mid descending colon and ? transverse colon. The polyps were 5 to 7 mm in size. These polyps were ? removed with a hot snare. Resection and retrieval were complete. ? Verification of patient identification for the specimen was done. ? Estimated blood loss was minimal. ? Multiple small and large-mouthed diverticula were found in the sigmoid ? colon and descending colon. ? The exam was otherwise without abnormality on direct and retroflexion ? views. ? Impression: ? - Four 5 to 7 mm polyps in the mid descending colon ?and in the transverse colon, removed with a hot ?snare. Resected and retrieved. ?- Diverticulosis in the sigmoid colon and in the ?descending colon. ?- The examination was otherwise normal on direct ?and retroflexion views. Recommendation: ? - Await pathology results. ?- No aspirin, ibuprofen, naproxen, or other ?non-steroidal anti-inflammatory drugs for 5 days ?after polyp removal. ?- Repeat colonoscopy date to be determined after ?pending pathology results are reviewed for ?surveillance based on pathology results. ? Procedure Code(s): ? --- Professional --- ? 41105, Colonoscopy, flexible; with removal of tumor(s), polyp(s), or ? other lesion(s) by snare technique Diagnosis Code(s): ? --- Professional --- ? K63.5, Polyp of colon CPT copyright 2019 [employer]. All rights reserved. The codes documented in this report are preliminary and upon sales manager prearranged funerals review may be revised to meet current compliance requirements. Electronically signed by Francisco Peguero MD __ Francisco Peguero MD 08/18/2020 1:41:27 PM I was physically present for the entire viewing portion of the exam. Francisco Peguero MD Number of Addenda: 0 Note Initiated On: 08/18/2020 1:07 PM MRN: ?[id number] Procedure Date: ? 08/18/2020 1:07:30 PM Scope Withdrawal Time: 0 hours 11 minutes 5 seconds Total Procedure Duration: 0 hours 14 minutes 49 seconds Estimated Blood Loss: ? Scope In: 1:18:30 PM Scope Out: 1:33:19 PM RADIOLOGY RESULTS 08/18/2020 1:07 PM CDT Francisco Peguero MD PROCEDURES RADIOLOGY RESULTS * (ABNORMAL) Comprehensive metabolic panel (BMP + Alb, Alk Phos, ALT, AST, Total. Bili, TP) (08/09/2020 12:20 PM CDT) Sodium 139 133 - 144 mmol/L 08/09/2020 2:24 PM [facility] Potassium 4.2 3.4 - 5.3 mmol/L 08/09/2020 2:24 PM [facility] Chloride 108 94 - 109 mmol/L 08/09/2020 2:24 PM [facility] Carbon Dioxide 22 20 - 32 mmol/L 08/09/2020 2:26 PM [facility] Anion Gap 9 3 - 14 mmol/L 08/09/2020 2:26 PM [facility] Glucose 125(H) 70 - 99 mg/dL 08/09/2020 2:26 PM [facility] Urea Nitrogen 24 7 - 30 mg/dL 08/09/2020 2:26 PM [facility] Creatinine 0.87 0.66 - 1.25 mg/dL 08/09/2020 2:26 PM [facility] GFR Estimate 87 >60 mL/min/{1. 73_m2} 08/09/2020 2:26 PM [facility] Comment: Non GFR Calc Starting 03/19/2018, serum creatinine based estimated GFR (eGFR) will be calculated using the Chronic Kidney Disease Epidemiology Collaboration (CKD-EPI) equation. GFR Estimate If Black >90 >60 mL/min/{1. 73_m2} 08/09/2020 2:26 PM [facility] Comment: GFR Calc Starting 03/19/2018, serum creatinine based estimated GFR (eGFR) will be calculated using the Chronic Kidney Disease Epidemiology Collaboration (CKD-EPI) equation. Calcium 9.5 8.5 - 10.1 mg/dL 08/09/2020 2:26 PM [facility] Bilirubin Total 1.8(H) 0.2 - 1.3 mg/dL 08/09/2020 2:30 PM [facility] Albumin 3.3(L) 3.4 - 5.0 g/dL 08/09/2020 2:30 PM [facility] Protein Total 7.3 6.8 - 8.8 g/dL 08/09/2020 2:30 PM [facility] Alkaline Phosphatase 90 40 - 150 U/L 08/09/2020 2:30 PM CDT [facility] ALT 22 0 - 70 U/L 08/09/2020 2:30 PM CDT [facility] AST 11 0 - 45 U/L 08/09/2020 2:30 PM CDT [facility] Blood 08/09/2020 12:2 0 PM CDT 08/09/2020 12:21 PM CDT Earnestine Glaser MD LAB - BLOOD ORDERABL ES [facility] [address] [place] [id number] [phone] * Abd/pelvis CT, IV contrast only TRAUMA / AAA (07/15/2020 5:24 AM CDT) Anatomical Region Laterality Modality Abdomen/Pelvis, SUBRAD CT MARIBETH DY, UMP CT ABDOMEN PELVIS, RAD CT Computed Tomography 07/15/2020 5:08 AM CDT Impressions 07/15/2020 5:38 AM CDT IMPRESSION: 1. ??Left bladder diverticulum. Wall thickening of the bladder and diverticulum consistent with cystitis. 2. ??Nonobstructing right renal calculus. 3. ??Diverticulosis. Narrative 07/15/2020 5:38 AM CDT EXAM: CT ABDOMEN PELVIS W CONTRAST LOCATION: [facility] DATE/TIME: 07/15/2020 5:08 AM INDICATION: Abdominal pain, acute, nonlocalized COMPARISON: None. TECHNIQUE: CT scan of the abdomen and pelvis was performed following injection of IV contrast. Multiplanar reformats were obtained. Dose reduction techniques were used. CONTRAST: 100mL Isovue-370 FINDINGS: LOWER CHEST: Lung bases clear. Small hiatal hernia. HEPATOBILIARY: Mild hepatic steatosis. Difficult to exclude sludge or cholelithiasis in the gallbladder. PANCREAS: Normal. SPLEEN: Normal. ADRENAL GLANDS: Diffuse nodular thickening of the adrenal glands. KIDNEYS/BLADDER: Renal cysts. Left parapelvic cysts. 10 mm calculus lower pole right kidney. Large left bladder diverticulum. Diffuse wall thickening of the bladder diverticulum with surrounding inflammation. BOWEL: Normal caliber. Diverticulosis. Normal appendix. LYMPH NODES: Normal. VASCULATURE: Diffuse atherosclerotic vascular calcification. PELVIC ORGANS: Prostate calcification. MUSCULOSKELETAL: Degenerative change osseous structures. Procedure Note Belen Mckinney MD, MD - 07/15/2020 EXAM: CT ABDOMEN PELVIS W CONTRAST LOCATION: [facility] DATE/TIME: 07/15/2020 5:08 AM INDICATION: Abdominal pain, acute, nonlocalized COMPARISON: None. TECHNIQUE: CT scan of the abdomen and pelvis was performed followinginjection of IV contrast. Multiplanar reformats were obtained. Dosereduction techniques were used. CONTRAST: 100mL Isovue-370 FINDINGS: LOWER CHEST: Lung bases clear. Small hiatal hernia. HEPATOBILIARY: Mild hepatic steatosis. Difficult to exclude sludge orcholelithiasis in the gallbladder. PANCREAS: Normal. SPLEEN: Normal. ADRENAL GLANDS: Diffuse nodular thickening of the adrenal glands. KIDNEYS/BLADDER: Renal cysts. Left parapelvic cysts. 10 mm calculus lowerpole right kidney. Large left bladder diverticulum. Diffuse wallthickening of the bladder diverticulum with surrounding inflammation. BOWEL: Normal caliber. Diverticulosis. Normal appendix. LYMPH NODES: Normal. VASCULATURE: Diffuse atherosclerotic vascular calcification. PELVIC ORGANS: Prostate calcification. MUSCULOSKELETAL: Degenerative change osseous structures. IMPRESSION: 1. Left bladder diverticulum. Wall thickening of the bladder anddiverticulum consistent with cystitis. 2. Nonobstructing right renal calculus. 3. Diverticulosis. Jennifer Arita DO IMG CT ORDERABLES * (ABNORMAL) Stool: occult blood (07/15/2020 3:58 AM CDT) Occult Blood Positive(A ) NEG^Negati ve 07/15/2020 4:23 AM CDT [facility] Stool 07/15/2020 3:58 AM CDT 07/15/2020 4:21 AM CDT Jennifer Arita DO LAB - STOOLS ORDER NATHANAEL [facility] [address] [place], [place] [address] [phone] from Last 3 Months or Most Recently Relevant to Health Maintenance Additional Health Concerns Active Problems Noted Date Diagnosed Date MyC ECC SURG ENROLL 07/06/2023 Care Teams Home Health Lvn Relationship Specialty Start Date End Date No Ref-Primary, Physician PCP - General 07/15/20 [place] [address] [place] [address] Assigned PCP 08/26/20
--- OUTSIDE RECORDS SUMMARY | 2023-07-25 08:16 | XMS_ITS | Encounter Summary ---
Author Name Unknown Organization [facility] Address [facility] [place] [address] Care Team Providers Care Theater Manager Name Role Phone No Ref-Primary, Physician Primary Care Provider Lino Radford DO Unavailable [phone] Encounter Details Date Type Department Care Team (Latest Contact Info) Description 07/06/2023 Travel Social History Tobacco Use Types Packs/Day [...] Description 07/27/2023 7:40 AM CDT Hospital Encounter [facility] Services [address] [place] [phone] Fabrizio Jones MD [address] [address] 07/27/2023 7:40 AM CDT - 07/27/2023 10:20 AM CDT Surgery [facility] [address] [place] [address] Fabrizio Jones MD [address] [place] [address] Cystoscopy, right ureteroscopy with laser lithotripsy, right ureteroscopy with stone basketing, right retrograde pyelogram, right ureteral stent placement 08/02/2023 10:30 AM CDT Office Visit [facility] [place] [address] [facility] [address] [place] [address] Fabrizio Jones MD [address] [place] [address] Scheduled Procedures Name Priority Associated Diagnoses Date/Ti [...] documented as of this encounter Care Teams Theater Manager Relationship Specialty Start Date End Date No Ref-Primary, Physician PCP - General 07/15/20 [place] [address] [place] [address] Assigned PCP 08/26/20 documented as of this encounter
--- OUTSIDE RECORDS SUMMARY | 2023-07-25 08:16 | XMS_ITS | Encounter Summary ---
Author Name Unknown Organization [facility] Address [address] [place] [address] Care Team Providers Care Scientific Aide Name Role Phone No Ref-Primary, Physician Primary Care Provider Lino Radford DO Unavailable [phone] Reason for Visit * Reason Onset Date Comments Referral 06/25/2023 To schedule Urol ogy appt per referral from [facility] for recurring UTI & kidney stones Encounter Details Date Type Department Care Team (Late st Contact Info) Description 06/25/2023 Telephone [facility] [address] [place] [address] Elizabeth Mckeon, CRISTA WOOD TECHNOLOGIST [address] [facility] [address] [place], [place] [phone] Referral (To schedule Urology appt per referral from [facility] for recurring UTI & kidney stones) Social History Tobacco Use Types Packs/Day Years [...] Description 07/27/2023 7:40 AM CDT Hospital Encounter [facility] Services [address] [place] [address] Fabrizio Jones MD [address] [id number] 07/27/2023 7:40 AM CDT - 07/27/2023 10:20 AM CDT Surgery [facility] [address] [place] [address] Fabrizio Jones MD [address] [id number] Cystoscopy, right ureteroscopy with laser lithotripsy, right ureteroscopy with stone basketing, right retrograde pyelogram, right ureteral stent placement 08/02/2023 10:30 AM CDT Office Visit [facility] [address] [place] [address] Fabrizio Jones MD [address] [id number] Scheduled Procedures Name Priority Associated Diagnoses Date/Ti me CYSTOURETEROSCOPY, WITH RETROGRADE PYELOGRAM, HOLMIUM LASER LITHOTRIPSY OF URETERAL CALCULUS, AND STENT INSERTION Right ureteral stone Bladder stones 07/27/2023 7:40 AM CDT LITHOTRIPSY, CALCULUS, BLADDER, USING HOLMIUM LASER Right ureteral stone Bladder stones 07/27/2023 7:40 AM CDT documented as of this encounter Visit Diagnoses Not on filedocumented in this encounter Care Teams Scientific Aide Relationship Specialty Start Date End Date No Ref-Primary, Physician PCP - General 07/15/20 [place] [address] [place] [address] Assigned PCP 08/26/20 documented as of this encounter
--- OUTSIDE RECORDS SUMMARY | 2023-07-25 08:16 | XMS_ITS | Encounter Summary ---
Author Name Unknown Organization [facility] Address [address] [place] [address] Care Team Providers Care Ripsaw Matcher Name Role Phone No Ref-Primary, Physician Primary Care Provider Lino Radford DO Unavailable [phone] Wilian Castañead MD Unavailable [phone] Justine Laurent PA-C Unavailable Encounter Details Date [...] 07/27/2023 7:40 AM CDT Hospital Encounter [facility] [address] [place] [address] Fabrizio Jones MD [address] [place] [id number] 07/27/2023 7:40 AM CDT - 07/27/2023 10:20 AM CDT Surgery [facility] [address] [place] [address] Fabrizio Jones MD [address] [place] [address] Cystoscopy, right ureteroscopy with laser lithotripsy, right ureteroscopy with stone basketing, right retrograde pyelogram, right ureteral stent placement 08/02/2023 10:30 AM CDT Office Visit [facility] [address] [place] [address] Fabrizio Jones MD [address] [place], [place] [address] Scheduled Procedures Name Priority Associated Diagnoses Date/Ti me CYSTOURETEROSCOPY, WITH RETROGRADE PYELOGRAM, HOLMIUM LASER LITHOTRIPSY OF URETERAL CALCULUS, AND STENT INSERTION Right ureteral stone Bladder stones 07/27/2023 7:40 AM CDT LITHOTRIPSY, CALCULUS, BLADDER, USING HOLMIUM LASER Right ureteral stone Bladder stones 07/27/2023 7:40 AM CDT documented as of this encounter Visit Diagnoses Not on filedocumented in this encounter Care Teams Ripsaw Matcher Relationship Specialty Start Date End Date No Ref-Primary, Physician PCP - General 07/15/20 [place] [address] [place] [address] Assigned PCP 08/26/20 Wilian Castañeda MD [address] [address] Assigned Heart and Vascular Provider 09/12/20 04/28/22 Justine Laurent PA-C [address] [address] Assigned Surgical Provider 01/02/21 documented as of this encounter
--- OUTSIDE RECORDS SUMMARY | 2023-07-25 08:16 | XMS_ITS | Clinical Summary ---
Author Name Unknown Organization [facility] Address [address] [place] [address] Care Team Providers Care Kitchen Operator Name Role Phone No Ref-Primary, Physician Primary Care Provider Lino Radford DO Unavailable [phone] Allergies No known active allergies Medications [...] 07/19/2020 Rectal bleeding 07/19/2020 Urinary tract infection Encounters Date Type Department Care Team Description 07/20/2023 Travel 07/06/2023 11:00 AM CDT Office Visit [facility] [address] [place] [phone] Fabrizio Jones MD Right ureteral stone (Primary Dx); Bladder stones; Recurrent UTI; Cloudy urine; Chronic atrial fibrillation (H); Gross hematuria; Kidney stone on left side; Bladder diverticulum 07/06/2023 Travel 06/25/2023 Telephone [facility] [address] [place] [phone] Elizabeth Mckeon APRN RIGHT OF WAY WORKER Referral (To schedule Urology appt per referral from [facility] for recurring UTI & kidney stones) from Last 3 Months Immunizations Name Administration Dates Next Due COVID-19 [...] Description 07/27/2023 7:40 AM CDT Hospital Encounter [facility] [address] [phone] Fabrizio Jones MD [address] [address] 07/27/2023 7:40 AM CDT - 07/27/2023 10:20 AM CDT Surgery [facility] [address] [place] [phone] Fabrizio Jones MD [address] [address] Cystoscopy, right ureteroscopy with laser lithotripsy, right ureteroscopy with stone basketing, right retrograde pyelogram, right ureteral stent placement 08/02/2023 10:30 AM CDT Office Visit [facility] [place] [address] [place] [phone] Fabrizio Jones MD [address] [address] Scheduled Procedures Name Priority Associated Diagnoses Date/Ti me CYSTOURETEROSCOPY, WITH RETROGRADE PYELOGRAM, HOLMIUM LASER LITHOTRIPSY OF URETERAL CALCULUS, AND STENT INSERTION Right ureteral stone Bladder stones 07/27/2023 7:40 AM CDT LITHOTRIPSY, CALCULUS, BLADDER, USING HOLMIUM LASER Right ureteral stone Bladder stones 07/27/2023 7:40 AM CDT Health Maintenance Due Date Last Done Comments ADVANCE CARE PLANNING 1950 CT COLONOGRAPHY 1950 FLEX SIG 1950 sDNA (Cologuard) 1950 Pneumococcal Vaccine: 65+ Years (1 of 2 - PCV) 1956 HEPATITIS C SCREENING 1968 LIPID 1990 ZOSTER IMMUNIZATION (1 of 2) 2000 RSV VACCINE ( & 60+ ) (1 - 1-dose 60+ series) 2010 MEDICARE ANNUAL WELLNESS VISIT 2015 DTAP/TDAP/TD IMMUNIZATION (1 - Tdap) 08/24/2020 08/23/2020 FIT 07/15/2021 07/15/2020 ANNUAL REVIEW OF HM ORDERS 08/23/2021 08/23/2020 FALL RISK ASSESSMENT 08/23/2021 08/23/2020 PHQ-2 (once per calendar year) 2023 08/23/2020 COVID-19 Vaccine (3 - 3-2 4 season) 2023 03/05/2023, 01/29/2023, 03/18/2021 GLUCOSE 08/10/2023 08/09/2020, 07/19/2020, 07/15/2020 COLONOSCOPY 03/01/2026 03/01/2021, 08/18/2020, 04/02/2017 COLORECTAL CANCER SCREENING 03/01/2026 AORTIC ANEURYSM SCREENING (SYSTEM ASSIGNED) Completed 07/15/2020 INFLUENZA VACCINE Completed 01/29/2023, 01/29/2023 HPV IMMUNIZATION Aged Out No longer e [...] on patient's age to complete this topic Goals Goal Patient Goal Type Associated Problems Recent Progress Patient-Stated? Author MYC ECC SURG ENROLL Care Plan MyC ECC SURG ENROLL No Cara Kimble Procedures Procedure Name Priority Date/Time Associated Diagnosis Comments URINE CULTURE Routine 07/06/2023 10:45 AM CDT Cloudy urine URINALYSIS MACROSCOPIC Routine 10:35 AM CDT Recurrent UTI IA MEASURE POST-VOID RESIDUAL URINE/BLADDER CAPACITY, US NON-IMAGING [...] Maintenance Results * Urine Culture Aerobic Bacterial [[id number]] (07/06/2023 10:45 AM CDT) Culture <10,000 CFU/mL Mixture of Urogenital [place] 07/07/2023 2:10 PM CDT [facility] Urine MID-STREAM URINE SPECIMEN / Unknown Non-blood Collection / Unknown 07/06/2023 10:45 AM CDT 07/06/2023 10:45 AM CDT Fabrizio Jones MD LAB - MICRO GENERAL ORDERABLES [facility] Inf. Diseases Diag. Lab [address] [facility], [address] [place] [address] * (ABNORMAL) UA without Microscopic [[id number]] (07/06/2023 10:35 AM CDT) Color Urine Yellow [...] 10:43 AM CDT [facility] Specific [place] Urine 1.025 1.003 - 1.035 07/06/2023 10:43 [...] URINE ORDERABL ES [facility] [address] [place] [address], [facility] [phone] * MEASURE POST-VOID RESIDUAL URINE/BLADDER CAPACITY, US NON-IMAGING (20172) (07/06/2023) Residual Volume (RV) (External) 248 Fabrizio Joens MD PROCEDURES * COLONOSCOPY (08/18/2020 1:07 PM CDT) COLONOSCOPY [facility] Patient Name: Marlon Benton ?Procedure Date: 08/18/2020 [...] continuously. The ?Olympus Adult Colonoscope, Model # CF-CQ495H, ?[place] # 222, SN # [id number] was introduced through ?the anus and advanced [...] Procedure Code(s): ? --- Professional --- ? 23271, Colonoscopy, flexible; with removal of tumor(s), polyp(s), or ? other lesion(s) by snare technique Diagnosis Code(s): ? --- Professional --- ? K63.5, Polyp of colon CPT copyright 2019 [employer]. All rights reserved. The codes documented in this report are preliminary and upon wireless sales manager review may be revised to meet current compliance requirements. Electronically signed by Francisco Peguero MD __ Francisco Peguero MD 08/18/2020 1:41:27 PM I was physically present for the entire viewing portion of the exam. Francisco Peguero MD Number of Addenda: 0 Note Initiated On: 08/18/2020 1:07 PM MRN: ?[id number] Procedure Date: ? 08/18/2020 1:07:30 PM Scope [...] 133 - 144 mmol/L 08/09/2020 2:24 PM CDT [facility] Potassium 4.2 3.4 - 5.3 mmol/L 08/09/2020 2:24 PM CDT [facility] Chloride 108 94 - 109 mmol/L 08/09/2020 2:24 PM [facility] Carbon Dioxide 22 20 - 32 mmol/L 08/09/2020 2:26 PM [facility] Anion Gap 9 3 - 14 mmol/L 08/09/2020 2:26 PM [facility] Glucose 125(H) 70 - 99 mg/dL 08/09/2020 2:26 PM [facility] Urea Nitrogen 24 7 - 30 mg/dL 08/09/2020 2:26 PM [facility] Creatinine 0.87 0.66 - 1.25 mg/dL 08/09/2020 2:26 PM [facility] GFR Estimate 87 >60 mL/min/{1. 73_m2} 08/09/2020 2:26 PM [facility] Comment: Non GFR Calc Starting 03/19/2018, serum creatinine based estimated GFR (eGFR) will be calculated using the Chronic Kidney Disease Epidemiology Collaboration (CKD-EPI) equation. GFR Estimate If Black >90 >60 mL/min/{1. 73_m2} 08/09/2020 2:26 PM [facility] Comment: GFR Calc Starting 03/19/2018, serum creatinine based estimated GFR (eGFR) will be calculated using the Chronic Kidney Disease Epidemiology Collaboration (CKD-EPI) equation. Calcium 9.5 8.5 - 10.1 mg/dL 08/09/2020 2:26 PM [facility] Bilirubin Total 1.8(H) 0.2 - 1.3 mg/dL 08/09/2020 2:30 PM [facility] Albumin 3.3(L) 3.4 - 5.0 g/dL 08/09/2020 2:30 PM [facility] Protein Total 7.3 6.8 - 8.8 g/dL 08/09/2020 2:30 PM [facility] Alkaline Phosphatase 90 40 - 150 U/L 08/09/2020 2:30 PM [facility] ALT 22 0 - 70 U/L 08/09/2020 2:30 PM [facility] AST 11 0 - 45 U/L 08/09/2020 2:30 PM CDT [facility] Blood 08/09/2020 12:2 0 PM CDT 08/09/2020 12:21 PM CDT Earnestine Glaser MD LAB - BLOOD ORDERABL ES [facility] [address] [place] [address] [phone] * Abd/pelvis CT, IV contrast only TRAUMA [...] EXAM: CT ABDOMEN PELVIS W CONTRAST LOCATION: [facility] DATE/TIME: 07/15/2020 5:08 AM INDICATION: Abdominal pain, [...] EXAM: CT ABDOMEN PELVIS W CONTRAST LOCATION: [facility] DATE/TIME: 07/15/2020 5:08 AM INDICATION: Abdominal pain, [...] ) NEG^Negati ve 07/15/2020 4:23 AM CDT [facility] Stool 07/15/2020 3:58 AM CDT 07/15/2020 4:21 AM CDT Jennifer Arita DO LAB - STOOLS ORDER NATHANAEL [facility] [address] [place], [place] [address] [phone] from Last 3 Months or Most Recently Relevant to Health Maintenance Additional Health Concerns Active Problems Noted Date Diagnosed Date MyC ECC SURG ENROLL 07/06/2023 Care Teams Kitchen Operator Relationship Specialty Start Date End Date No Ref-Primary, Physician PCP - General 07/15/20 [place] [address] [place], [place] [phone] Assigned PCP 08/26/20
--- OUTSIDE RECORDS SUMMARY | 2023-07-25 08:16 | XMS_ITS | Encounter Summary ---
Author Name Unknown Organization [facility] Address [address] [place] [address] Care Team Providers Care Director Of Annual Giving Name Role Phone No Ref-Primary, Physician Primary Care Provider Lino Radford DO Unavailable [phone] Wilian Castañeda MD Unavailable [phone] Justine Laurent PA-C Unavailable Encounter Details Date Type Department Care Team (Late st Contact Info) Description 11/03/2021 MyC Medical Advice [address] [phone] Roberta Traore, BAKER BREAD Social History Tobacco Use Types Packs/Day Years [...] Description 07/27/2023 7:40 AM CDT Hospital Encounter [facility] [address] [place] [phone] Fabrizio Jones MD [address] [address] 07/27/2023 7:40 AM CDT - 07/27/2023 10:20 AM CDT Surgery [facility] [address] [place] [phone] Fabrizio Jones MD [address] [address] Cystoscopy, right ureteroscopy with laser lithotripsy, right ureteroscopy with stone basketing, right retrograde pyelogram, right ureteral stent placement 08/02/2023 10:30 AM CDT Office Visit [facility] [address] [place] [phone] Fabrizio Jones MD [address] [address] Scheduled Procedures Name Priority Associated Diagnoses Date/Ti me CYSTOURETEROSCOPY, WITH RETROGRADE PYELOGRAM, HOLMIUM LASER LITHOTRIPSY OF URETERAL CALCULUS, AND STENT INSERTION Right ureteral stone Bladder stones 07/27/2023 7:40 AM CDT LITHOTRIPSY, CALCULUS, BLADDER, USING HOLMIUM LASER Right ureteral stone Bladder stones 07/27/2023 7:40 AM CDT documented as of this encounter Visit Diagnoses Not on filedocumented in this encounter Care Teams Director Of Annual Giving Relationship Specialty Start Date End Date No Ref-Primary, Physician PCP - General 07/15/20 [place] [address] [place] [address] Assigned PCP 08/26/20 Wilian Castañeda MD [address] [facility] [address] [address] Assigned Heart and Vascular Provider 09/12/20 04/28/22 Justine Laurent PA-C [address] [address] Assigned Surgical Provider 01/02/21 documented as of this encounter
== END 2023-07-24 12:32 | disposition home or self-care (01) ==
LOC: NFLDREF 07-25 08:11
PROVIDERS: PCP Family Medicine; Referring Provider Family Medicine; Visit Provider Family Medicine
DX: N39.0 Urinary tract infection, site not specified (principal)
CPT/HCPCS: 87086

== ENCOUNTER 2024-07-22 10:03 | Outpatient (CLI) | payer MEDICARE, SELFPAY | END 2024-07-22 10:04 | disposition home or self-care (01) | PROVIDERS: Visit Provider Family Medicine | DX: R63.4 Abnormal weight loss (principal); F41.1 Generalized anxiety disorder; Z12.5 Encounter for screening for malignant neoplasm of prostate; Z13.21 Encounter for screening for nutritional disorder | CPT/HCPCS: 80053; 82607; 84443; G0103 ==

== ENCOUNTER 2024-10-30 09:57 | Emergency (ER) | payer MEDICARE, SELFPAY ==
[2024-10-30] VITALS (30 sets, daily range): BP systolic 128–147; BP diastolic 84–117; PULSE 77–102; RESP 24; TEMP 37.4; O2SAT 93–99; BMI 26.3
--- OUTSIDE RECORDS SUMMARY | 2024-10-30 10:01 | XMS_ITS | Encounter Summary ---
Author Organization [facility] Address [address] [place] [address] Care Team Providers Care Pay Station Department Manager Name Role Phone No Ref-Primary, Physician Primary Care Provider Lino Radford DO Unavailable [phone] Wilian Castañeda MD Unavailable [phone] Justine Laurent PA-C Unavailable Fabrizio Jones MD Unavailable [phone] [facility]- Primary Care Provider Encounter Details Date Type Department Care Team (Late st Contact Info) Description 11/03/2021 MyC Medical Advice [address] [phone] Roberta Traore, DETENTION WORKER Social History Tobacco Use Types Packs/Day Years Used Date Smoking Tobacco: Former Cigarettes 2 20 0 04/02/1971 - 04/02/1991 Smokeless Tobacco: Never Alcohol Use Standard Drinks/Week Comments Yes 0 (1 standard drink = 0.6 oz pur e alcohol) occ PHQ-2 Answer Date Recorded PHQ-2 Score 0 08/23/2020 Sex and Gender Information Value Date Recorded Sex Assigned at Male 08/29/2020 12:26 PM CDT Legal Sex Male 1:36 AM CDT Gender Identity Male 08/29/2020 12:26 PM CDT Sexual Orientation Straight 08/29/2020 12 :26 PM CDT documented as of this encounter Plan of Treatment Upcoming Encounters Date Type Department Care Team (Late st Contact Info) Description 12/04/2024 8:45 AM CDT Lab [facility] [address] [facility] [address] [place] [phone] 12/11/2024 9:00 AM CDT Office Visit [facility] [address] [facility] [address] [place] [address] Fabrizio Jones MD [address] [address] documented as of this encounter Visit Diagnoses Not on filedocumented in this encounter Care Teams Pay Station Department Manager Relationship Specialty Start Date End Date No Ref-Primary, Physician PCP - General 07/15/20 07/26/23 [facility]- [address] [place] [address] PCP - General 07/27/23 [place] [address] [place] [address] Assigned PCP 08/26/20 09/22/23 Wilian Castañeda MD [address] [address] Assigned Heart and Vascular Provider 09/12/20 04/28/22 Justine Laurent PA-C [address] [address] Assigned Surgical Provider 01/02/21 Fabrizio Jones MD [address] [address] Assigned Surgical Provider 07/24/23 documented as of this encounter
--- OUTSIDE RECORDS SUMMARY | 2024-10-30 10:01 | XMS_ITS | Clinical Summary ---
Author Organization [facility] Address [address] [place] [address] Care Team Providers Care Primer And Powder Canning Leader Name Role Phone Fabrizio Jones MD Unavailable [phone] [facility]- Primary Care Provider Allergies No known active allergies Medications metoprolol succinate ER (TOPROL XL) 25 MG 24 hr tablet Take 1 tablet by mouth daily Active aspirin 81 MG EC tablet Take 1 tablet by mouth daily Active acetaminophen (TYLENOL) 500 MG tabletIndicatio ns:Right distal ureteral calculus,Bladde r stone Take 2 tablets (1,000 mg) by mouth every 6 hours as needed for mild pain 100 tablet 07/27/2023 Active tamsulosin (FLOMAX) 0.4 MG capsuleIndicati ons:Right ureteral stone Take 1 capsule (0.4 mg) by mouth every evening. 90 capsule 1 07/03/2024 Active Hospital, Clinic, or Other Facility Administered Medication Ordered Dose Route Frequency Start Date End Date Status lidocaine (XYLOCAINE) 2 % external gelIndications:Right ureteral stone UR ONCE 08/02/2023 Active Active Problems Problem Noted Date Diagnosed Date Diverticulosis of large intestine without hemorr remberto 07/19/2020 Bladder diverticulitis 07/19/2020 Morbid obesity 07/19/2020 History of colonic polyps 07/19/2020 Rectal bleeding 07/19/2020 Urinary tract infection Encounters Date Type Department Care Team Description 09/11/2024 Orders Only [facility] [address] [place] [id number] Fabrizio Jones MD from Last 3 Months Immunizations Immunization Administration Dates Next Due COVID-19 Monovalent 18+ [...] Sign Reading Time Taken Comments Blood Pressure 128/88 12/11/2023 10:32 AM CDT Pulse 84 12/11/2023 10:32 AM CDT Temperature 36.7 C (98.1 F) 07/27/2023 10:20 AM CDT Respiratory Rate 20 07/27/2023 10:20 AM CDT Oxygen Saturation 98% 07/27/2023 10:30 AM CDT Inhaled Oxygen Concentration - - Weight 90.3 kg (199 lb) 12/11/2023 10:32 AM CDT Height 180.3 cm (5' 11) 12/11/2023 10:32 AM CDT Body Mass Index 27.75 12/11/2023 10:32 AM CDT Plan of Treatment Upcoming Encounters Date Type Department Care Team (Late st Contact Info) Description 12/04/2024 8:45 AM CDT Lab [facility] [address] [place] [phone] 12/11/2024 9:00 AM CDT Office Visit [facility] [address] [place] [address] Fabrizio Jones MD [address] [place] [address] Health Maintenance Due Date Last Done Comments ADVANCE CARE PLANNING 1950 CT COLONOGRAPHY 1950 FLEX SIG 1950 sDNA (Cologuard) 1950 HEPATITIS C SCREENING 1968 LIPID 1990 PNEUMOCOCCAL VACCINE 50+ YEARS (1 of 1 - PCV) 2000 ZOSTER VACCINE (1 of 2) 2000 MEDICARE ANNUAL WELLNESS VISIT 2015 DTAP/TDAP/TD VACCINE (1 - Tdap) 08/24/2020 08/23/2020 FIT 07/15/2021 07/15/2020 ANNUAL REVIEW OF HM ORDERS 08/23/2021 08/23/2020 FALL RISK ASSESSMENT 08/23/2021 08/23/2020 DIABETES SCREENING 08/10/2023 08/09/2020, 0 07/19/2020, 07/15/2020 PHQ-2 (once per calendar year) 2024 08/23/2020 COVID-19 VACCINE ( season) 2024 12/17/2023, 03/05/2023, 01/29/2023, Additional history exists INFLUENZA VACCINE (#1) 2024 , 01/29/2023, 01/29/2023 RSV VACCINE (1 - 1-dose 75+ series) 2025 COLONOSCOPY 03/01/2026 03/01/2021, 07/31, 04/02/2017 COLORECTAL CANCER SCREENING 03/01/2026 AORTIC ANEURYSM SCREENING (SYSTEM ASSIGNED) Completed 07/15/2020 HPV VACCINE (No Doses Required) Completed MENINGITIS VACCINE Aged Out No longer eligible based on patient's age to complete this topic Medical Devices Implanted Type Area Fire Extinguisher Repairer Device Identifier Shelf Expiration Date Model / Serial / Lot Stent Ureteral Polaris Ultra [id number] - [id number] Implanted:Qty : 1 on 07/27/2023 by Fabrizio Jones MD at [facility] Stent Right: Ureter [employer] [id number] 03/02/2026 [id number] / [id number] Procedures Procedure Name Priority Date/Time Associated Diagnosis Comments COLONOSCOPY Routine 08/18/2020 1:07 PM CDT COMPREHENSIVE METABOLIC PANEL Routine 08/09/2020 12:20 PM CDT Fatigue, unspecified type CT ABDOMEN PELVIS W CONTRAST STAT 07/15/2020 5:24 AM CDT OCCULT BLOOD STOOL STAT 07/15/2020 3: 58 AM CDT from Last 3 Months or Most Recently Relevant to Health Maintenance Results * COLONOSCOPY (08/18/2020 1:07 PM CDT) [facility] Patient Name: Marlon Benton Procedure Date: 08/18/2020 1:07 PM Date of : 1950 Admit Type: Outpatient Age: 70 Gender: Male Attending MD: Francisco Peguero MD Total Sedation Time: 17_minutes continuous bedside 1:1 Instrument Name: 222 - Adult Colonoscope Procedure: Colonoscopy Indications: High risk colon cancer surveillance: Personal history of colonic polyps Providers: Francisco Peguero MD (Doctor) Referring MD: Medicines: Midazolam 2 mg IV, Fentanyl 100 micrograms IV Complications: No immediate complications. Procedure: Pre-Anesthesia Assessment: - Prior to the procedure, a History and Physical was performed, and patient medications and allergies were reviewed. The patient is competent. The risks and benefits of the procedure and the sedation options and risks were discussed with the patient. All questions were answered and informed consent was obtained. Patient identification and proposed procedure were verified by the physician in the pre-procedure area. Mental Status Examination: alert and oriented. Airway Examination: normal oropharyngeal airway and neck mobility. Respiratory Examination: clear to auscultation. CV Examination: normal. Prophylactic Antibiotics: The patient does not require prophylactic antibiotics. Prior Anticoagulants: The patient has taken no previous anticoagulant or antiplatelet agents. ASA Grade Assessment: II - A patient with mild systemic disease. After reviewing the risks and benefits, the patient was deemed in satisfactory condition to undergo the procedure. The anesthesia plan was to use moderate sedation / analgesia (conscious sedation). Immediately prior to administration of medications, the patient was re-assessed for adequacy to receive sedatives. The heart rate, respiratory rate, oxygen saturations, blood pressure, adequacy of pulmonary ventilation, and response to care were monitored throughout the procedure. The physical status of the patient was re-assessed after the procedure. After obtaining informed consent, the colonoscope was passed under direct vision. Throughout the procedure, the patient's blood pressure, pulse, and oxygen saturations were monitored continuously. The Olympus Adult Colonoscope, Model # CF-XV092C, [place]ora # 222, SN # [id number] was introduced through the anus and advanced to the cecum, identified by appendiceal orifice and ileocecal valve. The colonoscopy was performed without difficulty. The patient tolerated the procedure well. The quality of the bowel preparation was good. Findings: The perianal and digital rectal examinations were normal. Four multi-lobulated polyps were found in the mid descending colon and transverse colon. The polyps were 5 to 7 mm in size. These polyps were removed with a hot snare. Resection and retrieval were complete. Verification of patient identification for the specimen was done. Estimated blood loss was minimal. Multiple small and large-mouthed diverticula were found in the sigmoid colon and descending colon. The exam was otherwise without abnormality on direct and retroflexion views. Impression: - Four 5 to 7 mm polyps in the mid descending colon and in the transverse colon, removed with a hot snare. Resected and retrieved. - Diverticulosis in the sigmoid colon and in the descending colon. - The examination was otherwise normal on direct and retroflexion views. Recommendation: - Await pathology results. - No aspirin, ibuprofen, naproxen, or other non-steroidal anti-inflammatory drugs for 5 days after polyp removal. - Repeat colonoscopy date to be determined after pending pathology results are reviewed for surveillance based on pathology results. Procedure Code(s): --- Professional --- 56967, Colonoscopy, flexible; with removal of tumor(s), polyp(s), or other lesion(s) by snare technique Diagnosis Code(s): --- Professional --- K63.5, Polyp of colon CPT copyright 2019 [employer]. All rights reserved. The codes documented in this report are preliminary and upon estate and trust tax principal review may be revised to meet current compliance requirements. Electronically signed by Francisco Peguero MD __ Francisco Peguero MD 08/18/2020 1:41:27 PM I was physically present for the entire viewing portion of the exam. Francisco Peguero MD Number of Addenda: 0 Note Initiated On: 08/18/2020 1:07 PM Procedure Date: 08/18/2020 1:07:30 PM Scope Withdrawal Time: 0 hours 11 minutes 5 seconds Total Procedure Duration: 0 hours 14 minutes 49 seconds Estimated Blood Loss: Scope In: 1:18:30 PM Scope Out: 1:33:19 PM RADIOLOGY RESULTS 08/18/2020 1:07 PM CDT us Francisco Peguero MD PROCEDURES Final Result RADIOLOGY RESULTS * (ABNORMAL) Comprehensive metabolic panel (BMP + Alb, Alk Phos, ALT, AST, Total. Bili, TP) (08/09/2020 12:20 PM CDT) Sodium 139 133 - 144 mmol/L 08/09/2020 2:24 PM T [facility] Potassium 4.2 3.4 - 5.3 mmol/L 08/09/2020 [...] 0.2 - 1.3 mg/dL 08/09/2020 2:30 PM CDT [facility] Albumin 3.3(L) 3.4 - 5.0 g/dL 08/09/2020 2:30 PM CDT [facility] Protein Total 7.3 6.8 - 8.8 g/dL 08/09/2020 2:30 PM CDT [facility] Alkaline Phosphatase 90 40 - 150 U/L 08/09/2020 2:30 PM CDT [facility] ALT 22 0 - 70 U/L 08/09/2020 2:30 PM CDT [facility] AST 11 0 - 45 U/L 08/09/2020 2:30 PM CDT [facility] Blood 08/09/2020 12:2 0 PM CDT 08/09/2020 12:21 PM CDT us Earnestine Glaser MD LAB - BLOOD ORDERABLES Final Re sult [facility] [address] [place] [id number] [phone] * Abd/pelvis CT, IV contrast only TRAUMA / AAA (07/15/2020 5:24 AM CDT) Anatomical Region Laterality Modality Abdomen/Pelvis, SUBRAD CT MARIBETH DY, UMP CT ABDOMEN PELVIS, RAD CT Computed Tomography 07/15/2020 5:08 AM CDT Impressions 07/15/2020 5:38 AM CDT IMPRESSION: 1. Left bladder diverticulum. Wall thickening of the bladder and diverticulum consistent with cystitis. 2. Nonobstructing right renal calculus. 3. Diverticulosis. Narrative 07/15/2020 5:38 AM CDT EXAM: CT ABDOMEN PELVIS W CONTRAST LOCATION: [facility] DATE/TIME: 07/15/2020 5:08 AM INDICATION: Abdominal [...] EXAM: CT ABDOMEN PELVIS W CONTRAST LOCATION: [facility] DATE/TIME: 07/15/2020 5:08 AM INDICATION: Abdominal [...] 2. Nonobstructing right renal calculus. 3. Diverticulosis. us Jennifer Arita DO [facility] [place] ORDERABLES Final Re sult * (ABNORMAL) Stool: occult blood (07/15/2020 3:58 AM CDT) Occult Blood Positive(A ) NEG^Negati ve 07/15/2020 4:23 AM CDT [facility] Stool 07/15/2020 3:58 AM CDT 07/15/2020 4:21 AM CDT us Jennifer Arita DO LAB - STOOLS ORDERABLES Ed ited Result - Final [facility] [address] [place] [address], [facility] [phone] from Last 3 Months or Most Recently Relevant to Health Maintenance Insurance [facility] MEDICARE ADVANTAGE [facility] MEDICARE ADVANTAGE Care Teams Primer And Powder Canning Leader Relationship Specialty Start Date End Date [facility]- [address] [place] [address] PCP - General 4/26/24 Fabrizio Jones MD [address] [place] [address] Assigned Surgical Provider 07/24/23
--- OUTSIDE RECORDS SUMMARY | 2024-10-30 10:01 | XMS_ITS | Encounter Summary ---
Author Organization [facility] Address [address] [place] [address] Care Team Providers Care Clinical Assistant Professor Name Role Phone Lino Radford DO Unavailable [phone] Fabrizio Jones MD Unavailable [phone] [facility]- Primary Care Provider Encounter Details Date Type Department Care Team (Late st Contact Info) Description 07/27/2023 MyC Medical Advice [address] [address] Roberta Traore, [facility] Social History Tobacco Use Types Packs/Day Years [...] Info) Description 12/04/2024 8:45 AM CDT Lab [facility] [address] [place] [address] 12/11/2024 9:00 AM CDT Office Visit [facility] [place] [address] [place] [address] Fabrizio Jones MD [address] [address] documented as of this encounter Visit Diagnoses Not on filedocumented in this encounter Care Teams Clinical Assistant Professor Relationship Specialty Start Date End Date [facility]- [address] [place] [address] PCP - General 07/27/23 [place] [address] [place] [address] Assigned PCP 08/26/20 09/22/23 Fabrizio Jones MD [address] [address] Assigned Surgical Provider 07/24/23 documented as of this encounter
--- OUTSIDE RECORDS SUMMARY | 2024-10-30 10:01 | XMS_ITS | Patient Health Record ---
Author Organization [facility] Address [address] [place], [place] [address] Care Team Providers Care Life Specialist Name Role Phone Denny Bonilla Primary Care Provider Donte Pantoja Unavailable [phone] Reason For Referral No Information Medications Medication SIG (Take, Route, Frequency, Duration) Notes Start Date End Date Status Gentamicin Sulfate 0.3 % 1 drop into the left eye Ophthalmic every 4 hrs for 15 days 12/31/2013 Active Keflex 500 MG 1 capsule Orally Twi ce a day for 10 day(s) 12/31/2013 Active Problems Problem Type SNOMED Code ICD Code Onset Dates Problem Status W/U Status Risk Notes Problem Tear film insufficiency (32763141) Dry Eyes Unspecified tear film insufficiency (375.15) Active confirmed Problem 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 Problem Blepharitis (06089944) Blepharitis, unspecified (373.00) Active confirmed Problem Chalazion (0236511) Chalazion (373.2) Active confirmed Problem Vitreous degeneration (12395850) Vitreous degeneration (379.21) Active confirmed Problem Rosacea (662910367) Rosacea (695.3) Active confirmed Plan Of Treatment No Information Insurance Providers Payer Name Payer Address Payer Phone Subscriber Number Group Number Insured Name Patient Relationship to Insured Coverage Start Date Coverage End Date [employer] [address] [place] [phone] [id number] Marlon Bosch Self - patient is the insured 4 Medical (General) History Medical History History ICD Code high blood pressure
--- OUTSIDE RECORDS SUMMARY | 2024-10-30 10:01 | XMS_ITS | Clinical Summary ---
Author Organization [facility] Address [address] [place] [address] Care Team Providers Care Sustainable Development Policy Analyst Name Role Phone Yelena Multani Primary Care Provide r Allergies No known active allergies Medications oxyCODONE-aceta minophen (PERCOCET) 5-325 mg per tabletIndicatio ns:Benign prostatic hyperplasia with urinary obstruction Take 1 Tablet by mouth every 6 hours if needed for Pain. Max acetaminophen dose: 4000mg in 24 hrs. 15 Tablet 2 Active oxyCODONE (ROXICODONE) 5 mg immediate release tabletIndicatio ns:Benign prostatic hyperplasia with urinary obstruction Take 1-2 Tablets (5-10 mg) by mouth every 4 hours if needed for Pain (For severe pain.). 10 Tablet 01/21/2022 11:44 AM CDT 2 Active Active Problems Problem Noted Date Diagnosed [...] Recorded Sex Assigned at Not on file Legal Sex Male 12:08 PM CDT Gender Identity Not on file Sexual Orientation Not on file Obstetrics History Last Filed Vital Signs Vital Sign Reading Time Taken Comments Blood Pressure 128/76 01/21/2022 7:56 AM CDT Pulse 92 01/21/2022 7:56 AM CDT Temperature 36.8 C (98.2 F) 01/21/2022 7:56 AM CDT Respiratory Rate 17 01/21/2022 7:56 AM CDT Oxygen Saturation 97% 01/21/2022 7:56 AM CDT Inhaled Oxygen Concentration - - Weight 88.5 kg (195 lb 1.7 oz) 01/20/2022 9:21 A M CDT Height 180.3 cm (5' 11) 01/20/2022 9:21 AM CDT Body Mass Index 27.21 01/20/2022 9:21 AM CDT Plan of Treatment Health Maintenance Due Date Last Done Comments Tetanus booster 1961 Depression screening for age 12+ 1962 BMI (ht and wt on same day) for age 18+ 1968 Hepatitis C screening for ag e 18-79 1968 Pneumococcal series for age 50+ (1 of 2 - PCV) 1969 Colonoscopy through age 75 1995 Lipids for age 45-75 1995 Zoster (shingles) series for age 50+ (1 of 2) 2000 COVID-19 vaccine series (2 - 2023- season) 2023 03/18/2021 Influenza Vaccine (#1) 2024 RSV vaccine for adults or (1 - 1-dose 75+ series) 2025 Hepatitis B series for 19+ Aged Out N o longer eligible based on patient's age to complete this topic Insurance BLUE CROSS MEDICARE ADVANTAGE [place] MEDICARE PART A HB ONLY Advance Directives * Full Code (Latest Code Status on File) Date Activated Date Inactivated Comments 01/20/2022 9:01 AM 01/21/2022 2:38 PM Should be discussed pre operatively with anesthesia or surgeon Question Answer Comments Code Status Discussion: Not Discussed Care Teams Sustainable Development Policy Analyst Relationship Specialty Start Date End Date Yelena Multani DO [address] [place] [address] PCP - General Family Practice 01/02/22
[2024-10-30 11:09] LABS: Appearance Urine Clear (Clear)
--- NOTE | 2024-10-30 11:52 | ED.MALEGU ---
HPI - Male Genitourinary General Date Seen: 10/30/24 Chief complaint: Urogenital Problems, Male Stated complaint: uncontrolled urination Time Seen by Provider: 10/30/24 11:02 Source: patient Mode of arrival: ambulatory Limitations: no limitations History of Present Illness HPI Narrative: Patient is a 74-year-old male with a history of BPH and recurrent UTIs presenting to the emergency department for incontinence. He states for the past few days he has been unable to urinate when he tries to go but he is constantly having leakage coming from his urethra. States he is going through multiple diapers a day due to this. Prior to this she has not had any issues with urination other than 2 years ago when he had issues with his BPH causing him to need a Thompson. The Thompson was removed and he was back to urinating normally. Has noticed a small amount of blood in his urine and a small amount of friable tissue around his penis. Was having some suprapubic pain but by the time I did evaluate the patient the Thompson has been placed at the bladder scan showed over 1000 mL of fluid. He states he is feeling much better right now. Denies fevers, chills, diarrhea, constipation, headache, chest pain, shortness of breath, nausea. Related Data Home Medications ?Medication ?Instructions ?Recorded ?Confirmed aspirin 81 mg tablet,delayed 81 mg PO QDAY 09/13/22 10/30/24 release Previous Rx's ?Medication ?Instructions ?Recorded metoprolol succinate 25 mg 25 mg PO QDAY #90 tabs 07/22/24 tablet,extended release 24 hr tamsulosin 0.4 mg capsule 0.4 mg PO DAILY #90 caps 07/22/24 ciprofloxacin HCl 500 mg tablet 500 mg PO BID #10 tabs 10/30/24 (Cipro) Allergies Allergy/AdvReac Type Severity Reaction Status Date / Time No Known Drug Allergies Allergy Verified 07/22/24 09:19 Review of Systems Status of ROS: Reports: 10 or more systems reviewed and unremarkable except as noted in History and below PFSH PFSH Surgical History History of transurethral resection of prostate ?Z98.890 - Other specified postprocedural states (ICD-10) ?Z90.79 - Acquired absence of other genital organ(s) (ICD-10) History of cystoscopy ?Z98.890 - Other specified postprocedural states (ICD-10) History of shoulder surgery ?Z98.890 - Other specified postprocedural states (ICD-10) Family History Mother Cancer Father Esophageal cancer Social History Narrative: Smoking Status: Former smoker Do you use any of these nicotine containing products: Other Second hand tobacco smoke exposure: No How often do you have a drink containing alcohol: 2-3 times a week How many standard drinks containing alcohol do you have on a typical day: 1 or 2 How often do you have six or more drinks on one occasion: Never AUDIT-C Alcohol total score: 3 Non-prescribed substance use: marijuana (any form) Non-prescribed substance use details: smokes cannabis daily Exam Narrative: Exam Narrative: Const: Well-nourished, Well-developed, in no distress Eyes: PERRL, no conjunctival injection, and symmetrical lids HENT: Atraumatic external nose and ears. Moist mucous membranes. Neck: Symmetric, trachea midline, No thyromegaly. CVS: RRR, No murmurs or gallops. Peripheral pulses 2+ and equal in all extremities RESP: Unlabored respiratory effort. Clear to auscultation bilaterally. GI: Nontender/Nondistended, No rebound or guarding. MSK:Extremities w/o deformity, Normal Active ROM Skin: Warm, Dry. No rashes or lesions. Neuro: Normal Muscle tone, No focal neurological deficits. Psych: Awake, Alert, & Oriented x3. Appropriate mood and affect. Const: Vital Signs, click to edit/add: Vital Signs - 24 hr 10/30/24 10:36 10/30/24 11:28 10/30/24 11:29 Temperature 99.4 F Pulse Rate 97 102 H Pulse Rate [Pulse Oximeter] 92 Respiratory Rate 24 Blood Pressure 146/117 H Blood Pressure [Ri ght Upper Arm] 128/87 Pulse Oximetry 98 99 98 Oxygen Delivery Me thod Room Air 10/30/24 11:30 10/30/24 11:32 10/30/24 11:45 Temperature Pulse Rate 94 89 88 Pulse Rate [Pulse Oximeter] Respiratory Rate Blood Pressure 147/112 H Blood Pressure [Ri ght Upper Arm] Pulse Oximetry 99 97 98 Oxygen Delivery Me thod 10/30/24 12:00 10/30/24 12:02 10/30/24 12:03 Temperature Pulse Rate 82 88 90 Pulse Rate [Pulse Oximeter] Respiratory Rate Blood Pressure 144/104 H Blood Pressure [Ri ght Upper Arm] Pulse Oximetry 96 98 98 Oxygen Delivery Me thod 10/30/24 12:15 10/30/24 12:30 10/30/24 12:32 Temperature Pulse Rate 89 88 88 Pulse Rate [Pulse Oximeter] Respiratory Rate Blood Pressure 131/93 H Blood Pressure [Ri ght Upper Arm] Pulse Oximetry 96 93 95 Oxygen Delivery Me thod 10/30/24 12:45 10/30/24 13:00 10/30/24 13:02 Temperature Pulse Rate 93 86 88 Pulse Rate [Pulse Oximeter] Respiratory Rate Blood Pressure 141/84 H Blood Pressure [Ri ght Upper Arm] Pulse Oximetry 98 95 97 Oxygen Delivery Me thod 10/30/24 13:15 10/30/24 13:30 10/30/24 13:32 Temperature Pulse Rate 77 85 85 Pulse Rate [Pulse Oximeter] Respiratory Rate Blood Pressure 134/84 Blood Pressure [Ri ght Upper Arm] Pulse Oximetry 96 96 96 Oxygen Delivery Me thod Course Vital Signs Vital signs: Initial Vital Signs Temperature 99.4 F 10/30/24 10:36 Temperature Source Temporal Artery Scan 10/30/24 10:36 Pulse Rate 92 10/30/24 10:36 Pulse Rhythm Irregular 10/30/24 10:36 Respiratory Rate 24 10/30/24 10:36 Blood Pressure 128/87 10/30/24 10:36 Blood Pressure Mean 100 10/30/24 10:36 Blood Pressure Position Sitting 10/30/24 10:36 Pulse Oximetry 98 10/30/24 10:36 Oxygen Delivery Method Room Air 10/30/24 10:36 Vital Signs Temperature 99.4 F 10/30/24 10:36 Pulse Rate 92 10/30/24 10:36 Respiratory Rate 24 10/30/24 10:36 Blood Pressure 128/87 10/30/24 10:36 Pulse Oximetry 98 10/30/24 10:36 Oxygen Delivery Method Room Air 10/30/24 10:36 Temperature 99.4 F 10/30/24 10:36 Pulse Rate 85 10/30/24 13:32 Respiratory Rate 24 10/30/24 10:36 Blood Pressure 134/84 10/30/24 13:32 Pulse Oximetry 96 10/30/24 13:32 Oxygen Delivery Method Room Air 10/30/24 10:36 MDM - Male Genitourinary MDM Narrative Medical decision making narrative: Patient is a 74-year-old male presenting to the emergency department for a bladder obstruction. Likely caused by his BPH. Thompson was placed initially got over 1700 mL of fluid. He continued to drain lot of urine. Will monitor him for several hours to make sure he is not having any post obstruction diuresis. Will check basic labs. Lab work returned showing no concerning abnormalities other than a possible UTI. This UTI could be what caused the initial obstruction. His creatinine has gone from 0.8 to 1.9 but this is likely due to the obstruction. I was checking labs to have a comparison in case he was having post obstruction diuresis due to his large amount of urine in his bladder. Initially he put out another 500 mL of fluid in the 1st hour and a half but nursing staff states they did clamp the Thompson so the some of that was residual from the initial obstruction. Did monitor for another hour after that and he only produced another 50 mL of fluid. I believe postobstructive diuresis is unlikely at this time. Will treat him with an antibiotic though. States he usually uses Cipro. did recheck his Creatine to make sure it is improving and it is down to 1.5. This is reassuring that it was an obstructive cause. He is safe for discharge. Lab Data Labs: Lab Results 10/30/24 10/30/24 10/30/24 Range/Units 10:55 11:30 12:09 WBC 10.45 (4.50-11.00) K/uL RBC 4.57 (4.30-5.90) m/uL Hgb 14.5 (13.5-17.5) gm/dL Hct 43.2 (37.0-53.0) % MCV 95 (80-100) fL MCH 32 (26-34) pg MCHC 34 (32-36) gm/dL RDW Coeff of Unique 13.7 (11.5-15.5) % Plt Count 172 (140-440) K/uL Neut % (Auto) 87.4 H (42.0-72.0) % Lymph % (Auto) 3.2 L (20-44) % [place] % (Auto) 9.1 (0.0-11.0) % Eos % (Auto) 0.0 (0.0-7.0) % Baso % (Auto) 0.1 (0.0-3.0) % Neut # (Auto) 9.10 H (1.7-7.0) K/uL Lymph # (Auto) 0.30 L (0.90-2.90) K/uL [place] # (Auto) 1.00 H (0.00-0.90) K/UL Eos # (Auto) 0.00 (0.00-0.50) K/uL Baso # (Auto) 0.01 (0.00-0.30) K/uL Abs Immat Gran (auto) 0.02 (0.00-0.30) K/uL Imm/Tot Granulo (auto) 0.2 % Sodium 136 (135-149) mmol/L Potassium 4.0 (3.6-5.1) mmol/L Chloride 107 (96-114) mmol/L Carbon Dioxide 18 L (20-32) mmol/L Anion Gap 11 (7-15) mEq/L BUN 36 H (7-30) mg/dL Creatinine 1.9 H (0.5-1.5) mg/dL Estimated Creat Clear 35.22 Estimated GFR 37 ml/min Glucose 120 H (60-115) mg/dL Calcium 9.3 (8.4-10.6) mg/dL Magnesium 2.2 (1.5-2.6) mg/dL Urine Color Yellow Yellow (Yellow) Urine Appearance Clear Clear (Clear) Urine pH 6.0 5.5 (5.0-8.5) Ur Specific [place] 1.015 1.015 (1.000-1.030) Urine Protein 1+ A Trace A (Negative) Urine Glucose (UA) Negative Negative (Negative) Urine Ketones Trace A Trace A (Negative) Urine Blood 2+ A 2+ A (Negative) Urine Nitrite Negative Negative (Negative) Urine Bilirubin 1+ A Negative (Negative) Urine Urobilinogen 0.2 0.2 (0.2-1.0) Ur Leukocyte Esterase Trace A Trace A (Negative) Urine RBC 10-25 A >100 A (0-2) Urine WBC 5-10 A 5-10 A (0-5) Ur Squamous Epith Cells Few None (None-Few) Urine Bacteria None None (None) POC Creatinine (0.6-1.3) mg/dl 10/30/24 Range/Units 14:42 WBC (4.50-11.00) K/uL RBC (4.30-5.90) m/uL Hgb (13.5-17.5) gm/dL Hct (37.0-53.0) % MCV (80-100) fL MCH (26-34) pg MCHC (32-36) gm/dL RDW Coeff of Unique (11.5-15.5) % Plt Count (140-440) K/uL Neut % (Auto) (42.0-72.0) % Lymph % (Auto) (20-44) % [place] % (Auto) (0.0-11.0) % Eos % (Auto) (0.0-7.0) % Baso % (Auto) (0.0-3.0) % Neut # (Auto) (1.7-7.0) K/uL Lymph # (Auto) (0.90-2.90) K/uL [place] # (Auto) (0.00-0.90) K/UL Eos # (Auto) (0.00-0.50) K/uL Baso # (Auto) (0.00-0.30) K/uL Abs Immat Gran (auto) (0.00-0.30) K/uL Imm/Tot Granulo (auto) % Sodium (135-149) mmol/L Potassium (3.6-5.1) mmol/L Chloride (96-114) mmol/L Carbon Dioxide (20-32) mmol/L Anion Gap (7-15) mEq/L BUN (7-30) mg/dL Creatinine (0.5-1.5) mg/dL Estimated Creat Clear Estimated GFR ml/min Glucose (60-115) mg/dL Calcium (8.4-10.6) mg/dL Magnesium (1.5-2.6) mg/dL Urine Color (Yellow) Urine Appearance (Clear) Urine pH (5.0-8.5) Ur Specific [place] (1.000-1.030) Urine Protein (Negative) Urine Glucose (UA) (Negative) Urine Ketones (Negative) Urine Blood (Negative) Urine Nitrite (Negative) Urine Bilirubin (Negative) Urine Urobilinogen (0.2-1.0) Ur Leukocyte Esterase (Negative) Urine RBC (0-2) Urine WBC (0-5) Ur Squamous Epith Cells (None-Few) Urine Bacteria (None) POC Creatinine 1.5 H (0.6-1.3) mg/dl Discharge Plan Discharge Clinical Impression: Acute urinary retention Urinary tract infection Qualifiers: Urinary tract infection type: site unspecified Hematuria presence: with hematuria Qualified Code(s): N39.0 - Urinary tract infection, site not specified Patient Disposition: Home, Self-Care Condition: Improved Instructions: Urinary Retention in Men (ED) Additional Instructions: Follow-up the primary care provider to have the Thompson removed. Make sure stay well-hydrated. Return to emergency department for new or worsening symptoms. Take the antibiotics as prescribed Prescriptions: New ciprofloxacin HCl [Cipro] 500 mg tablet 500 mg PO BID Qty: 10 0RF No Action aspirin 81 mg tablet,delayed release (DR/EC) 81 mg PO QDAY metoprolol succinate 25 mg tablet extended release 24 hr 25 mg PO QDAY Qty: 90 3RF tamsulosin 0.4 mg capsule 0.4 mg PO DAILY Qty: 90 3RF Follow Up/Referrals: Stefano Holly MD [Primary Care Provider, Family Practice] Stand Alone Forms: [facility] Info Instructions
[2024-10-30 11:53] LABS: Appearance Urine Clear (Clear)
[2024-10-30 12:16] LABS: Hematocrit 43.2 % (37.0-53.0); Hemoglobin* 14.5 gm/dL (13.5-17.5); Immature Granulocytes Abs Auto 0.02 K/uL (0.00-0.30); Immature Granulocytes Pct Auto 0.2 %; Mean Corpuscular HGB Conc 34 gm/dL (32-36); Mean Corpuscular Hemoglobin 32 pg (26-34); Mean Corpuscular Volume 95 fL (80-100); RDW Coefficient of Variation % 13.7 % (11.5-15.5); Red Blood Count 4.57 m/uL (4.30-5.90); White Blood Count* 10.45 K/uL (4.50-11.00)
[2024-10-30 12:21] LABS: Lymphocytes Absolute Auto 0.30 K/uL (0.90-2.90); Slide Review Reflex No
[2024-10-30 12:51] LABS: Chloride* 107 mmol/L (96-114); Sodium* 136 mmol/L (135-149)
[2024-10-30 12:52] LABS: Potassium* 4.0 mmol/L (3.6-5.1)
[2024-10-30 12:54] LABS: Anion Gap 11 mEq/L (7-15); Blood Urea Nitrogen* 36 mg/dL (7-30); Carbon Dioxide* 18 mmol/L (20-32); Creatinine* 1.9 mg/dL (0.5-1.5); Est. Creatinine Clearance* 35.22; Estimated Glomerular Filt Rate 37 ml/min
[2024-10-30 12:55] LABS: Calcium* 9.3 mg/dL (8.4-10.6); Glucose* 120 mg/dL (60-115)
[2024-10-30 15:00] LABS: Creatinine, Point-of-Care* 1.5 mg/dl (0.6-1.3)
== END 2024-10-30 15:36 | disposition home or self-care (01) ==
PROVIDERS: Emergency Provider Student in an Organized Health Care Education/Training Program; PCP Family Medicine
DX: R33.9 Retention of urine, unspecified (principal); N39.0 Urinary tract infection, site not specified; Z87.891 Personal history of nicotine dependence
CPT/HCPCS: 36415; 51702; 80048; 81001; 82565; 83735; 85025; 87086; 99283; 99284